=== PATIENT | female | born 1965 | race Caucasian/White ===

== ENCOUNTER 2023-02-22 18:42 | Emergency (ER) | payer OTHER, SELFPAY ==
[2023-02-22] VITALS (24 sets, daily range): BP systolic 112–133; BP diastolic 76; PULSE 80–96; RESP 11–28; TEMP 37.3; O2SAT 95–98; BMI 27.1
--- NOTE | 2023-02-22 18:32 | ED_ITS ---
HPI - General Adult General Chief complaint: Recheck/Abnormal Lab/Rx Stated complaint: LAB Time Seen by Provider: 02/22/23 18:45 History of Present Illness HPI narrative: Patient is a 57-year-old female who presents to the emergency department from a long-term acute care facility where she is a resident for the evaluation of abnormal outpatient labs. Patient had routine labs drawn yesterday and she was found to have a normal creatinine, she had repeat labs drawn today showing acute renal failure with elevated potassium. Patient has a history of traumatic brain injury, tracheostomy and G-tube. She is nonverbal although she is able to respond by nodding or shaking her head and she is cooperative and attentive to exam. No focal medical symptoms were reported by the correction or EMS on arrival. Related Data Allergies Allergy/AdvReac Type Severity Reaction Status Date / Time No Known Drug Allergies Allergy Verified 02/22/23 18:36 Review of Systems ROS Narrative Review of systems is limited by the patient's medical condition, no focal medical complaints reported by EMS or correction Exam Narrative Exam Narrative: Gen.: Awake, alert, in no distress Head: Deformity of the skull, status post surgery ENT: Moist mucous membranes Respiratory: No respiratory distress, lungs clear bilaterally Cardio: Regular rate and rhythm Gastrointestinal: Abdomen is soft, nondistended and nontender to palpation Extremities: Contracture noted of the left arm, able to move the right arm without difficulty Psych: Calm, cooperative Neuro: Nonverbal, limited mobility Skin: Warm, dry, intact Constitutional Vital Signs, click to edit/add: Last Vital Signs Temp 99.1 F 02/22/23 18:30 Pulse 89 02/22/23 23:18 Resp 16 02/22/23 23:18 BP 133/76 02/22/23 23:18 Pulse Ox 97 02/22/23 23:18 Course Vital Signs Vital signs: Vital Signs Temperature 99.1 F 02/22/23 18:30 Pulse Rate 93 H 02/22/23 18:30 Respiratory Rate 16 02/22/23 18:30 Blood Pressure 112/76 02/22/23 18:30 Pulse Oximetry 97 02/22/23 18:30 Temperature 99.1 F 02/22/23 18:30 Pulse Rate 89 02/22/23 23:18 Respiratory Rate 16 02/22/23 23:18 Blood Pressure 133/76 02/22/23 23:18 Pulse Oximetry 97 02/22/23 23:18 Medical Decision Making MDM Narrative Medical decision making narrative: IV was established with fluids started for the patient, Stevenson catheter was placed to rule out urinary obstruction and a CT of the abdomen and pelvis was performed for the same. CT does not show any evidence of acute abnormality, there is an age-indeterminate T12 burst fracture consistent with her previous injury. She has not had any falls or injuries to account for a new injury. Repeat labs show that the patient has a normal creatinine, normal potassium and she has a normal EKG in the ER. We suspect the abnormal specimen at her correction was due to the blood being hemolyzed. Patient has normal vital signs. She will be discharged back to the correction, I did give report to her [facility] caregiver who requested the Stevenson catheter be removed. Medical Records Medical records reviewed: Yes I reviewed the patient's medical records Lab Data Lab results reviewed: Yes I reviewed the patient's lab results Labs: Lab Results 02/22/23 02/22/23 Range/Units 18:48 19:06 WBC 7.2 (4.0-11.0) 10^3/uL RBC 3.66 L (4.20-5.40) 10^6/uL Hgb 11.7 L (12.0-16.0) g/dL Hct 36.1 (36.0-48.0) % MCV 98.6 (81.0-99.0) fL MCH 32.0 (26.7-34.0) pg MCHC 32.4 (29.9-35.2) g/dL RDW 22.3 H (11.0-15.0) % Plt Count 467 H (150-450) 10^3/uL MPV 10.4 (9.5-13.5) fL Neut % (Auto) 49.2 (43.0-75.0) % Lymph % (Auto) 35.7 (20.5-60.0) % Porter % (Auto) 11.2 (1.7-12.0) % Eos % (Auto) 2.2 (0.9-7.0) % Baso % (Auto) 1.1 (0.2-2.0) % Neut # (Auto) 3.5 (1.4-6.5) 10^3/uL Lymph # (Auto) 2.6 (1.2-3.8) 10^3/uL Porter # (Auto) 0.8 (0.3-0.8) 10^3/uL Eos # (Auto) 0.2 (0.0-0.7) 10^3/uL Baso # (Auto) 0.1 (0.0-0.1) 10^3/uL Abs Immat Gran (auto) 0.04 H (0.00-0.03) 10^3/uL Imm/Tot Granulo (auto) 0.6 H (0.0-0.5) % Sodium 137 (136-145) mmol/L Potassium 3.8 (3.5-5.1) mmol/L Chloride 102 (98-107) mmol/L Carbon Dioxide 28.3 (21.0-32.0) mmol/L Anion Gap 10.5 BUN 16.0 (7.0-18.0) mg/dL Creatinine 0.67 (0.55-1.02) mg/dL Est GFR ( Amer) >60 (>=60) Est GFR (Non-Af Amer) >60 (>=60) BUN/Creatinine Ratio 23.9 Glucose 107 H (74-106) mg/dL Calcium 9.2 (8.5-10.1) mg/dL Total Bilirubin 0.3 (0.2-1.0) mg/dL AST 14 L (15-37) U/L ALT 41 (14-59) U/L Alkaline Phosphatase 88 (46-116) U/L Total Protein 6.2 L (6.4-8.2) g/dL Albumin 2.9 L (3.4-5.0) g/dL Globulin 3.3 g/dL Albumin/Globulin Ratio 0.9 Urine Color Lt. green (YELLOW) Urine Clarity Clear (CLEAR) Urine pH 6.5 (5.0-9.0) Ur Specific Willis <=1.005 A (1.005-1.025) Urine Protein Negative (NEG/TRACE) mg/dL Urine Glucose (UA) Negative (NEGATIVE) mg/dL Urine Ketones Negative (NEGATIVE) mg/dL Urine Occult Blood Negative (NEGATIVE) Urine Nitrite Negative (NEGATIVE) Urine Bilirubin Negative (NEGATIVE) Urine Urobilinogen 0.2 (0.2-1.0) EU/dL Ur Leukocyte Esterase Small A (NEGATIVE) Urine RBC 0-2 (0-2) #/HPF Urine WBC 0-2 A (NONE SEEN) #/HPF Ur Squamous Epith Cells None seen (NONE/RARE) #/LPF Urine Crystals None seen (None Seen) #/HPF Urine Bacteria None seen (NONE SEEN) #/HPF Urine Casts None seen (NONE SEEN) #/LPF Urine Mucus None seen (NONE SEEN) Ur Culture Indicated? No Imaging Data CT scan - abdomen: Attestation: I have reviewed the pertinent imaging results. Radiologist's impression: Procedure: CT abdomen pelvis wo con EXAM: CT abdomen pelvis wo con; [id number] REASON FOR EXAM: Acute kidney failure TECHNIQUE: Helical CT images of the abdomen and pelvis were obtained without IV contrast. Multiplanar reformats were generated at the scanner. Dose reduction technique used: Automated exposure control and/or adjustment of the mA and/or kV according to patient size and/or use of iterative reconstruction technique. COMPARISON: None. FINDINGS: Note: Compared with a contrast-enhanced CT exam, noncontrast images are relatively insensitive for detection of solid organ and vascular abnormalities. Visualized Chest: No pleural effusion or any significant pulmonary findings. Abdomen: Liver: Within normal limits. Gallbladder: No calcified gallstones. No acute inflammatory changes. Bile Ducts: No significant biliary ductal dilatation. Pancreas: No ductal dilatation or inflammatory changes. Spleen: No splenomegaly. Adrenals: Benign right adrenal nodule measuring 18 x 14 mm (series 9 image 41). Kidneys: -Single nonobstructing 3 mm stone in the left kidney. -No hydronephrosis. Vascular: No aortic aneurysm. Lymph Nodes: No adenopathy. Abdominal Wall: Percutaneous gastrostomy tube terminates appropriately in the lumen of the stomach. Pelvis: Stevenson catheter decompresses the bladder. Bowel/Peritoneal Cavity/Mesentery: -Moderate sized rectal stool ball. -No acute inflammatory changes. -No free air or free fluid. Musculoskeletal: Age-indeterminate mild burst fracture of the superior endplate of T12 with approximately 6 mm retropulsion of fracture into the spinal canal (series 12 image 59). IMPRESSION: 1. No structural etiology for acute renal failure demonstrated. 2. Nonobstructing 3 mm stone in the left kidney. 3. Moderate sized rectal stool ball. 4. Age-indeterminate burst fracture of the superior endplate of T12 with 6 mm of retropulsion of the fracture into the spinal canal. Electronically authenticated by: AMY PACHECO Date: 02/22/2023 19:57 ECG Data Attestation: I personally reviewed and interpreted this ECG as follows: (Normal sinus rhythm at a rate of 91, no acute ST elevation or ectopy. EKG reviewed by attending physician) Discharge Plan Discharge Chief Complaint: Recheck/Abnormal Lab/Rx Clinical Impression: Encounter for laboratory test Patient Disposition: Home, Self-Care Time of Disposition Decision: 20:12 Condition: Good Mode of Transportation: EMS Stand Alone Forms: Portal Instructions Referrals: Alex Thomason MD [Primary Care Provider] - 1 week Discharge Date/Time: 02/22/23 23:30
--- NOTE | 2023-02-22 18:39 | ECG_ITS ---
[facility] Test Date: 2023-02-22 Pat Name: Naomie Bolden Department: Room: - Gender: Female [employer]: : 1965 Requested By: RAMA PRITCHETT Order Number: [id number] Reading MD: RAMA PRITCHETT Measurements Intervals [place] Rate: 91 P: -36 MD: 148 QRS: 69 QRSD: 92 T: 60 QT: 338 QTc: 387 Interpretive Statements 1220 Rapid atrial rhythm 8102 Low QRS voltage in chest leads 9140 abnormal rhythm ECG No previous ECG available for comparison Electronically Signed On 02-23-2023 6:46:09 EST by RAMA PRITCHETT
[2023-02-22 18:57] LABS: Basophils Absolute Auto 0.1 10^3/uL (0.0-0.1); Basophils Percent Auto 1.1 % (0.2-2.0); Eosinophils Absolute Auto 0.2 10^3/uL (0.0-0.7); Eosinophils Percent Auto 2.2 % (0.9-7.0); Hematocrit 36.1 % (36.0-48.0); Hemoglobin 11.7 g/dL (12.0-16.0); Immature Granulocytes Abs Auto 0.04 10^3/uL (0.00-0.03); Immature Granulocytes Pct Auto 0.6 % (0.0-0.5); Lymphocytes Absolute Auto 2.6 10^3/uL (1.2-3.8); Lymphocytes Percent Auto 35.7 % (20.5-60.0); Mean Corpuscular HGB Conc 32.4 g/dL (29.9-35.2); Mean Corpuscular Volume 98.6 fL (81.0-99.0); Mean Platelet Volume 10.4 fL (9.5-13.5); Monocytes Absolute Auto 0.8 10^3/uL (0.3-0.8); Monocytes Percent Auto 11.2 % (1.7-12.0); Neutrophils Absolute Auto 3.5 10^3/uL (1.4-6.5); Neutrophils Percent Auto 49.2 % (43.0-75.0); Platelet Count 467 10^3/uL (150-450); Red Blood Count 3.66 10^6/uL (4.20-5.40); Red Cell Distribution Width 22.3 % (11.0-15.0); White Blood Count 7.2 10^3/uL (4.0-11.0)
[2023-02-22] MEDS: 0.9 % SODIUM CHLORIDE 1,000 ML 1000 ML IV (19:03)
[2023-02-22 19:15] LABS: Alanine Aminotransferase 41 U/L (14-59); Albumin Globulin Ratio 0.9; Albumin Level 2.9 g/dL (3.4-5.0); Alkaline Phosphatase 88 U/L (46-116); Anion Gap 10.5; Aspartate Amino Transferase 14 U/L (15-37); BUN Creatinine Ratio 23.9; Bilirubin Total 0.3 mg/dL (0.2-1.0); Calcium 9.2 mg/dL (8.5-10.1); Carbon Dioxide 28.3 mmol/L (21.0-32.0); Chloride 102 mmol/L (98-107); Estimated GFR (African America >60 (>=60); Estimated GFR (Non-African Ame >60 (>=60); Globulin 3.3 g/dL; Glucose 107 mg/dL (74-106); Potassium 3.8 mmol/L (3.5-5.1); Sodium 137 mmol/L (136-145); Total Protein 6.2 g/dL (6.4-8.2)
[2023-02-22 19:17] LABS: Bilirubin Urine NEGATIVE (NEGATIVE); Blood Urine NEGATIVE (NEGATIVE); Clarity Urine CLEAR (CLEAR); Color Urine LT. GREEN (YELLOW); Glucose Urine UA NEGATIVE (NEGATIVE); Ketones Urine NEGATIVE (NEGATIVE); Leukocyte Esterase Urine SMALL (NEGATIVE); Nitrite Urine NEGATIVE (NEGATIVE); Protein Urine NEGATIVE (NEG/TRACE); Specific Gravity Urine <=1.005 (1.005-1.025); Urobilinogen Urine 0.2 EU/dL (0.2-1.0); pH Urine 6.5 (5.0-9.0)
[2023-02-22 19:26] LABS: Urine Microscopic Indicated YES
[2023-02-22 19:31] LABS: Bacteria Urine NONE SEEN #/HPF (NONE SEEN); Cast Seen? NONE SEEN #/LPF (NONE SEEN); Crystals Seen? None Seen #/HPF (None Seen); Mucus Urine NONE SEEN (NONE SEEN); RBC Urine 0-2 #/HPF (0-2); Squamous Epithelial Cell Urine NONE SEEN #/LPF (NONE/RARE); Urine Culture Indicated NO; WBC Urine 0-2 #/HPF (NONE SEEN)
== END 2023-02-22 23:30 | disposition home or self-care (01) ==
PROVIDERS: Physician Assistant; Emergency Provider Internal Medicine; PCP Family Medicine
DX: Z00.00 Encounter for general adult medical examination without abnormal findings (principal); Z87.820 Personal history of traumatic brain injury; Z93.0 Tracheostomy status; Z93.1 Gastrostomy status
CPT/HCPCS: 36415; 51702; 74176; 80053; 81001; 85025; 93005; 99285

== ENCOUNTER 2024-01-09 16:21 | Outpatient (REF) | payer OTHER, SELFPAY ==
--- OUTSIDE RECORDS SUMMARY | 2024-01-09 16:27 | XMS_ITS | CCD ---
Author Organization [facility] Care Team Providers Care Correctional Maintenance Technician Name Role Phone Nill, Gala R Unavailable Unavailable Nill, Gala R Unavailable Unavailable Nill, Gala R Unavailable Unavailable Alex Thomason~[phone] UNKNOWN Unavailable Unavailable ALEX THOMASON Referring Unavailable ALEX THOMASON Primary Care Unavailable Alex Thomason Primary Care Provider Alex Thomason Primary Care Provider Sesar Gutiérrez Attending Provider Chhaya Spivey Unavailable SHREYAS ., DR ONTIVEROS Attending Unavailable HOY ., DR ONTIVEROS Admitting Unavailable HOY ., DR ONTIVEROS Primary Care Unavailable HOY ., DR ONTIVEROS Consulting Unavailable HOY ., DR ONTIVEROS Admitting Unavailable HOY ., DR ONTIVEROS Primary Care Unavailable HOY ., DR ONTIVEROS Consulting Unavailable HOY ., DR ONTIVEROS Attending Unavailable HOY ., DR ONTIVEROS Attending Unavailable HOY ., DR ONTIVEROS Admitting Unavailable HOY ., DR ONTIVEROS Primary Care Unavailable HOY ., DR ONTIVEROS Consulting Unavailable [place], DR FRANCES Del Valle Consulting Unavailable FRANCES NICHOLS Consulting Unavailable Alex Thomason MD Primary Care Provider ALEX THOMASON Referring Unavailable ALEX THOMASON M Primary Care Unavailable SEBAS GILL Referring Unavailable ALEX THOMASON M Primary Care Unavailable SEBAS GILL Admitting Unavailable SEBAS GILL Attending Unavailable ALEX THOMASON M Primary Care Unavailable ALEX THOMASON M Primary Care Unavailable LELO MENDEZ Attending Unavailable ALEX THOMASON M Referring Unavailable ALEX THOMASON M Primary Care Unavailable ALEX THOMASON M Referring Unavailable HOY, ALEX M Primary Care Unavailable GIGI SUAREZ Referring Unavailable HOY, ALEX M Primary Care Unavailable МАРИЯSEVERINO Quintana M Referring Unavailable HOY, ALEX M Primary Care Unavailable SEBAS GILL Referring Unavailable HOY, ALEX M Primary Care Unavailable OLELO RAYMUNDO Referring Unavailable HOY, ALEX M Primary Care Unavailable SEBAS GILL Referring Unavailable HOY, ALEX M Primary Care Unavailable HOY, ALEX M Referring Unavailable HOY, ALEX M Primary Care Unavailable HAJA URRUTIA Attending Unavailable HAJA URRUTIA Referring Unavailable HOY, ALEX M Primary Care Unavailable HAJA URRUTIA Attending Unavailable HAJA URRUTIA M Referring Unavailable HOY, ALEX M Primary Care Unavailable SEBAS GILL Attending Unavailable HOY, ALEX M Referring Unavailable HOY, ALEX M Primary Care Unavailable HOY, ALEX M Referring Unavailable HOY, ALEX M Primary Care Unavailable HOY, ALEX M Referring Unavailable HOY, ALEX M Primary Care Unavailable HAJA URRUTIA Attending Unavailable LELO MENDEZ Referring Unavailable HOY, ALEX M Primary Care Unavailable HOY, ALEX M Referring Unavailable HOY, ALEX M Primary Care Unavailable GIGI SUAREZ Attending Unavailable HAJA URRUTIA Attending Unavailable HOY, ALEX M Referring Unavailable HOY, ALEX M Primary Care Unavailable Unavailable Unavailable Unavailable Allergies Allergy Classification Reported Allergen(s) Allergy Type Date of Onset Reaction(s) Facility (1 source) No Known Medication Allergies; Translations: [No Known Medication Allergies] Propensity to adverse reactions (disorder) [facility] Medications Current Medications Medication Drug Class(es) Dates Sig (Normalized) Sig (Original) acetaminophen 325 mg oral tablet (2 sources) Start: 02-02-2023 take 2 tablets by mouth every six hours as needed acetaminophen (TYLENOL) 325 mg tablet 2 tablets (650 mg total) every 6 (six) hours as needed. 0 02/02/2023 Active albuterol 0.833 mg/ml / ipratropium bromide 0.167 mg/ml inhalation solution (2 sources) Anticholinergic, beta2-Adrenergic Agonist Start: 02-02-2023 ipratropium-albuter oL (DUONEB) 0.5 mg-3 mg(2.5 mg base)/3 mL nebulizer Inhale 3 mL. 0 02/02/2023 Active amLODIPine 5 mg oral tablet (2 sources) Dihydropyridine Calcium Channel Iliana Start: 01-11-2023 take 1 tablet by mouth in the morning amLODIPine (NORVASC) 5 mg tablet Take 1 tablet (5 mg total) by mouth in the morning. 30 tablet 3 01/11/2023 Active aspirin 81 mg chewable tablet (2 sources) Platelet Aggregation Inhibitor, Nonsteroidal Anti-inflammatory Drug Start: 01-12-2023 aspirin 81 mg chewable tablet Chew 1 tablet (81 mg total) and swallow in the morning. 30 tablet 3 01/12/2023 Active baclofen 10 mg oral tablet (2 sources) gamma-Aminobutyric Acid-ergic Agonist take 0.5 tablet by mouth in the morning, then take 0.5 tablet by mouth at bedtime baclofen (LIORESAL) 10 mg tablet Take 0.5 tablets (5 mg total) by mouth in the morning and 0.5 tablets (5 mg total) before bedtime. 0 Active bisacodyl 10 mg rectal suppository (2 sources) Stimulant Laxative Start: 02-02-2023 bisacodyL (DULCOLAX) 10 mg suppository Insert 1 suppository (10 mg total) into the rectum as needed. 0 02/02/2023 Active carvedilol 25 mg oral tablet (4 sources) alpha-Adrenergic Iliana, beta-Adrenergic Iliana Start: 01-11-2023 carvediloL (COREG) 25 mg tablet 1 tablet (25 mg total) in the morning and 1 tablet (25 mg total) before bedtime. 0 02/02/2023 Active diclofenac sodium 75 mg delayed release oral tablet (2 sources) Nonsteroidal Anti-inflammatory Drug Start: 06-06-2020 take 75 mg by mouth once daily Diclofenac Sodium Active 75 MG PO Daily June 06, 2020 9:50am docusate sodium 50 mg / sennosides, alf 8.6 mg oral tablet (2 sources) take 1 tablet by mouth in the morning sennosides-docusate sodium (SENNA WITH DOCUSATE SODIUM) 8.6-50 mg Take 1 tablet by mouth in the morning. 0 Active famotidine 20 mg oral tablet (2 sources) Histamine-2 Receptor Antagonist Start: 02-02-2023 famotidine (PEPCID) 20 mg tablet 1 tablet (20 mg total) in the morning and 1 tablet (20 mg total) before bedtime. 0 02/02/2023 Active 1 ml heparin sodium, porcine 5000 unt/ml prefilled syringe (2 sources) Unfractionated Heparin, Anti-coagulant take 8000 [IU] parenteral route every eight hours heparin sodium,porcine (heparin, porcine,) 5,000 unit/mL syringe Inject 8,000 Units as directed every 8 (eight) hours. 0 Active hydroxyurea (2 sources) Antimetabolite take 3 capsules by mouth once daily in the evening HYDROXYUREA ORAL Take 500 mg by mouth in the evening. 3 capsules daily via G tube. 0 Active hypromellose 5 mg/ml ophthalmic solution (2 sources) Start: 01-11-2023 take 1 drop(s) into the eye(s) every two hours as needed artificial tears,hypromellose, (ISOPTO TEARS) 0.5 % ophthalmic solution Administer 1 drop to both eyes every 2 (two) hours as needed (if heavily sedated or paralyzed). 15 mL 3 01/11/2023 Active ibuprofen 200 mg oral tablet (2 sources) Nonsteroidal Anti-inflammatory Drug take 1 tablet by mouth every six hours as needed for pain ibuprofen (ADVIL,MOTRIN) 200 mg tablet Take 1 tablet (200 mg total) by mouth every 6 (six) hours as needed for pain (pt took equivalent to 800mg of the over the counter). 0 Active insulin lispro 100 unt/ml injectable solution (2 sources) Insulin Analog Start: 02-02-2023 insulin lispro (HumaLOG) 100 unit/mL injection Inject 0-0.06 mL (0-6 Units total) under the skin 4 (four) times a day. 0 02/02/2023 Active magnesium hydroxide 80 mg/ml oral suspension (2 sources) Start: 02-02-2023 magnesium hydroxide (MILK OF MAGNESIA) 400 mg/5 mL suspension 30 mL as needed. 0 02/02/2023 Active ondansetron 4 mg disintegrating oral tablet (2 sources) Serotonin-3 Receptor Antagonist Start: 02-02-2023 take 1 tablet by mouth every six hours as needed ondansetron ODT (ZOFRAN ODT) 4 mg disintegrating tablet 1 tablet (4 mg total) every 6 (six) hours as needed. 0 02/02/2023 Active polyethylene glycol 3350 83828 mg powder for oral solution (2 sources) Osmotic Laxative polyethylene gl ycol (GLYCOLAX) 17 gram packet Take 17 g by mouth in the morning. 0 Active potassium phosphate 155 mg / sodium phosphate, dibasic 852 mg / sodium phosphate, monobasic 130 mg oral tablet (2 sources) Start: 02-02-2023 sod phos di, mono-K phos mono (K-PHOS NEUTRAL) 250 mg tablet 1 tablet in the morning and 1 tablet before bedtime. 0 02/02/2023 Active simvastatin 40 mg oral tablet (3 sources) HMG-CoA Reductase Inhibitor simvastatin (ZOCOR) 40 mg tablet Take by mouth nightly. 0 Active traZODone hydrochloride 50 mg oral tablet (2 sources) Serotonin Reuptake Inhibitor Start: 02-02-2023 take 1 tablet by mouth in the morning traZODone (DESYREL) 50 mg tablet Take 1 tablet (50 mg total) by mouth in the morning. 0 02/02/2023 Active venlafaxine 75 mg oral tablet (3 sources) Serotonin and Norepinephrine Reuptake Inhibitor Start: 06-05-2020 take 1 tablet by mouth every twenty-four hours Venlafaxine HCl 75 MG 1 tablet with food Orally Once a day for 30 day(s) May, Active take 2 tablets by mouth in the m orning venlafaxine (EFFEXOR) 75 mg tablet Take 2 tablets (150 mg total) by mouth in the morning. 0 Active Problems Active Problems Problem Classification Problem Date Documented Date Episodic/Chronic Acute cerebrovascular disease (4 sources) Cerebral infarction, unspecified; Translations: [Cerebrovascular accident] Onset: 07-07-2023 Chronic Aortic and peripheral arterial embolism or thrombosis (6 sources) Thrombosis of aorta; Translations: [Embolism and thrombosis of unspecified parts of aorta] Onset: 12-26-2022 12-26-2022 Chronic Late effects of cerebrovascular disease (2 sources) Spasticity as sequela of stroke; Translations: [Other sequelae of cerebral infarction] Onset: 04-21-2023 04-21-2023 Chronic Neoplasms of unspecified nature or uncertain behavior (1 source) Essential (hemorrhagic) thrombocythemia; Translations: [Essential (hemorrhagic) thrombocythemia] Onset: 11-02-2023 Chronic Nutritional deficiencies (1 source) Vitamin D deficiency, unspecified; Translations: [VITAMIN D DEFICIENCY UNSPECIFIED] Onset: 02-27-2022 Chronic Occlusion or stenosis of precerebral arteries (2 sources) Occlusion and stenosis of bilateral carotid arteries; Translations: [Occlusion and stenosis of bilateral carotid arteries] Onset: 11-14-2023 Chronic Osteoporosis (5 sources) Age-related osteoporosis without current pathological fracture; Translations: [AGE-REL OSTEOPOR W/O CURR PATH FX] Onset: 03-26-2022 Chronic Other connective tissue disease (1 source) Spasm; Translations: [Other muscle spasm] Onset: 04-21-2023 04-21-2023 Episodic Other non-traumatic joint disorders (1 source) Pain in right knee; Translations: [Right knee pain, unspecified chronicity] Peripheral and visceral atherosclerosis (2 sources) Peripheral vascular disease, unspecified; Translations: [Peripheral vascular disease, unspecified] Onset: 11-14-2023 Chronic Residual codes; unclassified (1 source) Genetic susceptibility to other disease; Translations: [Genetic susceptibility to other disease] Onset: 11-02-2023 Episodic Residual codes; unclassified (1 source) Other specified postprocedural states; Translations: [Other specified postprocedural states] Onset: 11-22-2023 Episodic Unclassified (1 source) Cerebrovascular accident (CVA), unspecified mechanism (CMS-HCC) [I63.9] Onset: 10-10-2023 Unclassified (1 source) Carotid Artery Disease Onset: 12-12-2023 Unclassified (1 source) Post-op Onset: 11-22-2023 Past or Other Problems Problem Classification Problem Date Documented Da te Episodic/Chronic Immunizations and screening for infectious disease (1 source) Contact with and (suspected) exposure to other viral communicable diseases; Translations: [Contact with and (suspected) exposure to other viral communicable diseases Z20.828] Onset: 12-29-2020 Resolved: 12-29-2020 Episodic Malaise and fatigue (1 source) Other fatigue; Translations: [OTHER FATIGUE] Onset: 02-27-2022 Episodic Other acquired deformities (3 sources) Other acquired deformity of head; Translations: [Other acquired deformity of head] Onset: 07-07-2023 Episodic Other aftercare (1 source) Other meterman (current) drug therapy; Translations: [OTH WOOD BLOCK ARTIST CURRENT DRUG THERAPY] Onset: 02-27-2022 Episodic Other bone disease and musculoskeletal deformities (1 source) Other specified disorders of bone density and structure, other site; Translations: [OTH D/O BONE DEN STRUCT OTH SITE] Onset: 03-26-2022 Episodic Other connective tissue disease (1 source) Other muscle spasm; Translations: [Other muscle spasm] Onset: 04-21-2023 Episodic Other connective tissue disease (1 source) Cramp and spasm; Translations: [Cramp and spasm] Onset: 04-21-2023 Episodic Other screening for suspected conditions (not mental disorders or infectious disease) (2 sources) Encounter for screening mammogram for malignant neoplasm of breast; Translations: [Encounter for screening for malignant neoplasm of colon] Onset: 02-27-2022 Episodic Residual codes; unclassified (1 source) Family history of other malignant neoplasms of lymphoid, hematopoietic and related tissues; Translations: [FAM HX OTH MAL GUMARO LYMPH HEMATPOETC] Onset: 03-26-2022 Episodic Results Test Name Value Interpretation Reference Range Facility CT CTA ABD AND PELVISon 11-26 [address] ABD [address] PELVIS CT CTA ABD AND PELVIS CT CTA ABD AND PELVIS HISTORY: Abdominal aorta thrombosis, aortic atherosclerosis COMPARISON: CTA abdominal aorta with runoff 12/26/2022 TECHNIQUE: Multidetector CT Angiogram performed with 100 mL of Omnipaque 350 IV contrast. Images obtained through the Abdomen/Pelvis including 3 -D Maximum intensity projection reconstructions constructed under concurrent physician supervision on a independent workstation. 3 D images obtained to improve visualization of vascular detail. Automatic exposure control (AEC) was utilized. 3D reformatted images confirm the source data findings. All CT scans at this facility use dose modulation, iterative reconstruction, and/or weight based dosing when appropriate to reduce radiation dose to as low as reasonably achievable. FINDINGS: LOWER CHEST: Bibasilar atelectasis. Lung bases are otherwise clear. LIVER AND BILIARY: Noncirrhotic liver morphology. No suspicious hepatic mass or lesion. Contracted appearance of the gallbladder which has some degree of wall thickening near the mid/distal portion. PANCREAS: Unremarkable SPLEEN: Tigroid type and enhancement pattern with focal areas of parenchymal irregularities may reflect sequelae of remote infarction ADRENALS: Redemonstrated indeterminate right adrenal gland nodule measuring 1.4 cm. The left adrenal gland is unremarkable. KIDNEYS, URETERS, AND BLADDER: Symmetric renal parenchymal enhancement. Indeterminate 2.4 cm exophytic lesion in the upper pole left kidney. No collecting system dilatation. Nonobstructing bilateral nephrolithiasis, largest stone in the left kidney measures 0.5 cm. Ureters and bladder are unremarkable. GI TRACT AND PERITONEUM: The appendix and terminal ileum is unremarkable appearing. There is no evidence of bowel obstruction. No free intraperitoneal gas. 7.7 cm stool ball in the rectal vault. Subtle presacral stranding abutting the rectal vault (series 6, image 147). LYMPH NODES: No enlarged lymph nodes by size criteria. REPRODUCTIVE ORGANS: Sequela of prior hysterectomy.. MUSCULOSKELETAL: Either 6 lumbar vertebral bodies or 11 thoracic vertebral bodies with chronic superior endplate irregularity of the first nonrib-bearing lumbar vertebral body. Vasculature: The abdominal aorta is not aneurysmal. Moderate aortic atherosclerotic disease. Normal patency of the celiac trunk, SMA, single bilateral renal arteries, and PETER. The bilateral iliac vasculature and proximal femoral vasculature is unremarkable appearing. Interval absence of eccentric thrombus previously seen within the distal thoracic aorta near the diaphragmatic hiatus. IMPRESSION: * No acute vascular abnormality. Prior thrombus seen within the distal thoracic aorta is no longer visualized. * Indeterminate 2.4 cm exophytic lesion in the upper pole the left kidney. Recommend follow-up MR abdomen or CT abdomen pelvis with renal mass protocol. * Benign 1.4 cm right adrenal nodule. Consider biochemical assays to determine functional status and exclude pheochromocytoma. Recommend no further imaging evaluation. * A 7.7 cm stool ball is seen in the rectal vault with subtle presacral stranding. Correlate for symptoms which may suggest early stercoral colitis. * Decompressed gallbladder with apparent compatible thickening could relate to decompressed status. If concern for chronic cholecystitis or HIDA scan consider ultrasound. Approved by Resident Juan Asher DO on 12/06/2023 8:51 AM Gala Mosher MD have personally reviewed the image(s) and agree with and/or edited the report Finalized by Gala Cheung MD on 12/06/2023 9:[address] [facility] CT CTA CHESTon 12-06-[address] CTA CHEST CLINICAL INFORMATION: Aortic aneurysm. COMPARISON: 12/25/2022 TECHNIQUE: Nonionic contrast injected intravenously without reported complication. Thin section axial images of the thorax obtained with multiplanar reformatted 3-D MIP images of the thorax generated under concurrent physician supervision and reviewed. Automatic exposure control (AEC) was utilized. All CT scans at this facility use dose modulation, iterative reconstruction, and/or weight based dosing when appropriate to reduce radiation dose to as low as reasonably achievable. FINDINGS: CARDIOVASCULAR: Aorta: Mild atherosclerotic disease of the thoracic aorta. Large irregular thrombus visualized on prior imaging is no longer visualized. Mid ascending aorta: 4.0 x 4.1 cm. Previously measuring 3.9 cm Proximal arch (proximal to brachiocephalic artery): 3.7 x 4.0 cm. Mid arch: 2.8 x 3.1 cm. Distal arch (distal to left subclavian artery): 2.5 x 2.8 cm. Mid-descendin.3 x 2.4 cm. Arch vessels: Three-vessel aortic arch Pulmonary arteries: Normal in caliber. No visualized pulmonary arterial filling defect. Coronary arteries: No significant coronary artery calcifications. HEART: No cardiomegaly or significant pericardial effusion. NONVASCULAR: LUNG/PLEURA: Mild emphysematous changes. No focal consolidation, pleural effusion, or pneumothorax. Mild dependent atelectasis bilaterally. The central airways are patent without filling defect. MEDIASTINUM and LYMPH NODES: No mediastinal or hilar lymphadenopathy. UPPER ABDOMEN: Please refer to concurrently performed but separately dictated report. MUSCULOSKELETAL AND LOWER NECK Multinodular thyroid. Largest nodule measures up to 15 mm in the left lobe and is indeterminant. Multilevel degenerative changes spine. No acute osseous abnormalities. IMPRESSION: * Aneurysmal dilatation of the ascending aorta measuring up to 4.1 cm, previously measuring 3.9 cm. * Multinodular thyroid with largest nodule measuring up to 15 mm in the left lobe. This nodule is indeterminant, consider dedicated thyroid ultrasound. Approved by Resident Frances Suarez MD on 12/06/2023 7:54 AM Art Mosher have personally reviewed the image(s) and agree with and/or edited the report Finalized by Art Gale on 12/06/2023 2:[address] [facility] BASIC METABOLIC PANLon 10-11 Anion gap [Moles/Vol] 7 mmol/L Normal 5-15 [facility] Comment on above: Performed By: #### C BCA, BMP #### [facility] ([id number]) [address], [address] [place] [address] Calcium [Mass/Vol] 8.9 mg/dL Normal 8.5-10.5 [facility] Comment on above: Performed By: #### C BCA, BMP #### [facility] ([id number]) [address], [address] [place] [address] Chloride [Moles/Vol] 105 mmol/L Normal 98-109 [facility] Comment on above: Performed By: #### C MINH, BMP #### [facility] ([id number]) [address], [address] [place] [address] CO2 [Moles/Vol] 27 mmol/L Normal 22-32 [facility] Comment on above: Performed By: #### C BCA, BMP #### [facility] ([id number]) [address], [address] [place] [address] Creatinine [Mass/Vol] 0.50 mg/dL Normal 0.40-1.00 [facility] Comment on above: Result Comment: METH OD TRACEABLE TO IDMS STANDARD Performed By: #### C MINH, BMP #### [facility] ([id number]) [address], [address] [place] [address] eGFR (CKD-EPI) NON-RACE DEPENDENT >90 Normal >59 [facility] Comment on above: Result Comment: Reported eGFR is based on the CKD-EPI 2020 equation that does not use a race coefficient. Performed By: #### C BCA, BMP #### [facility] ([id number]) [address], [address] [place] [address] Glucose [Mass/Vol] 99 mg/dL Normal 65-99 [facility] Comment on above: Performed By: #### C BCA, BMP #### [facility] ([id number]) [address], [address] [place] [address] Potassium [Moles/Vol] 3.6 mmol/L Normal 3.5-5.0 [facility] Comment on above: Performed By: #### C BCA, BMP #### [facility] ([id number]) [address], [address] [place] [address] Sodium [Moles/Vol] 139 mmol/L Normal 134-146 [facility] Comment on above: Performed By: #### C BCA, BMP #### [facility] ([id number]) [address], [address] [place] [address] Urea nitrogen [Mass/Vol] 15 mg/dL Normal 5-23 [facility] Comment on above: Performed By: #### C BCA, BMP #### [facility] ([id number]) [address], [address] [place] [address] CBC AND AUTO DIFFon 10-12-19 Erythrocyte distribution width (RBC) [Ratio] 14.3 % Normal 11.5-15.0 [facility] Comment on above: Performed By: #### C BCA, BMP #### [facility] ([id number]) [address], [address] [place] [address] Hematocrit (Bld) [Volume fraction] 27.9 % Low 35-47 [facility] Comment on above: Performed By: #### C BCA, BMP #### [facility] ([id number]) [address], [address] [place] [address] Hemoglobin (Bld) [Mass/Vol] 9.5 g/dL Low 11.7-15.5 [facility] Comment on above: Performed By: #### C BCA, BMP #### [facility] ([id number]) [address], [facility] [address] [place] [address] Lymphocytes (Bld) [#/Vol] 2.9 10*3/uL Normal 1.0-3.5 [facility] Comment on above: Performed By: #### C BCA, BMP #### [facility] ([id number]) [address], [address] [place] [address] Lymphocytes/100 WBC (Bld) 42.0 % Normal [facility] Comment on above: Performed By: #### C MINH, BMP #### [facility] ([id number]) [address], [address] [place] [address] MCH (RBC) [Entitic mass] 40.3 pg High 27-34 [facility] Comment on above: Performed By: #### C MINH, BMP #### [facility] ([id number]) [address], [address] [place] [address] MCHC (RBC) [Mass/Vol] 34.1 g/dL Normal 32-36 [facility] Comment on above: Performed By: #### C MINH, BMP #### [facility] ([id number]) [address], [address] [place] [address] MCV (RBC) [Entitic vol] 118 fL High 80-100 [facility] Comment on above: Performed By: #### C MINH, BMP #### [facility] ([id number]) [address], [address] [place] [address] Monocytes (Bld) [#/Vol] 0.3 10*3/uL Normal 0-0.9 [facility] Comment on above: Performed By: #### C MINH, BMP #### [facility] ([id number]) [address], [address] [place] [address] Monocytes/100 WBC (Bld) 4.0 % Normal [facility] Comment on above: Performed By: #### C BCA, BMP #### [facility] ([id number]) [address], [address] [place] [address] Neutrophils (Bld) [#/Vol] 3.8 10*3/uL Normal 1.5-6.6 [facility] Comment on above: Performed By: #### C MINH, BMP #### [facility] ([id number]) [address], [address] [place] [address] OVALOCYTE 1+ Abnormal NONE [facility] Comment on above: Performed By: #### C MINH, BMP #### [facility] ([id number]) [address], [address] [place] [address] Platelet mean volume (Bld) [Entitic vol] 8.4 fL Normal 7-12 [facility] Comment on above: Performed By: #### C MINH, BMP #### [facility] ([id number]) [address] [place] [address] Platelets (Bld) [#/Vol] 200 10*3/uL Normal 150-450 [facility] Comment on above: Performed By: #### C MINH, BMP #### [facility] ([id number]) [address], [address] [place] [address] POLYCHROMASIA 1+ Abnormal NONE [facility] Comment on above: Performed By: #### C MINH, BMP #### [facility] ([id number]) [address] [place] [address] RBC COUNT 2.36 X10E12/L Low 3.80-5.20 [facility] Comment on above: Performed By: #### C MINH, BMP #### [facility] ([id number]) [address], [address] [place] [address] SEG NEUTROPHIL 54.0 % Normal [facility] Comment on above: Performed By: #### C MINH, BMP #### [facility] ([id number]) [address], [address] [place] [address] WBC (Bld) [#/Vol] 7.0 10*3/uL Normal 4.0-11.0 [facility] Comment on above: Performed By: #### C MINH, BMP #### [facility] ([id number]) [address], [address] [place] [address] BASIC METABOLIC PANLon 10-10 Anion gap [Moles/Vol] 9 mmol/L Normal 5-15 [facility] Comment on above: Performed By: #### C BC, BMP #### [facility] ([id number]) [address], [address] [place] [address] Calcium [Mass/Vol] 9.0 mg/dL Normal 8.5-10.5 [facility] Comment on above: Performed By: #### C BC, BMP #### [facility] ([id number]) [address], [address] [place] [address] Chloride [Moles/Vol] 105 mmol/L Normal 98-109 [facility] Comment on above: Performed By: #### C BC, BMP #### [facility] ([id number]) [address], [address] [place] [address] CO2 [Moles/Vol] 25 mmol/L Normal 22-32 [facility] Comment on above: Performed By: #### C BC, BMP #### [facility] ([id number]) [address], [address] [place] [address] Creatinine [Mass/Vol] 0.45 mg/dL Normal 0.40-1.00 [facility] Comment on above: Result Comment: METH OD TRACEABLE TO IDMS STANDARD Performed By: #### C BC, BMP #### [facility] ([id number]) [address] [place] [address] eGFR (CKD-EPI) NON-RACE DEPENDENT >90 Normal >59 [facility] Comment on above: Result Comment: Reported eGFR is based on the CKD-EPI 2020 equation that does not use a race coefficient. Performed By: #### C BC, BMP #### [facility] ([id number]) [address] [place] [address] Glucose [Mass/Vol] 127 mg/dL High 65-99 [facility] Comment on above: Performed By: #### C FLAKITO, BMP #### [facility] ([id number]) [address] [place] [address] Potassium [Moles/Vol] 3.6 mmol/L Normal 3.5-5.0 [facility] Comment on above: Performed By: #### C FLAKITO, BMP #### [facility] ([id number]) [address] [place] [address] Sodium [Moles/Vol] 139 mmol/L Normal 134-146 [facility] Comment on above: Performed By: #### Amanda FRAGA, BMP #### [facility] ([id number]) [address] [place] [address] Urea nitrogen [Mass/Vol] 15 mg/dL Normal 5-23 [facility] Comment on above: Performed By: #### Amanda FRAGA, BMP #### [facility] ([id number]) [address] [place] [address] COMPLETE BLOOD COUNTon 10-10 Erythrocyte distribution width (RBC) [Ratio] 14.1 % Normal 11.5-15.0 [facility] Comment on above: Performed By: #### Amanda FRAGA, BMP #### [facility] ([id number]) [address] [place] [address] Hematocrit (Bld) [Volume fraction] 30.6 % Low 35-47 [facility] Comment on above: Performed By: #### C FLAKITO, BMP #### [facility] ([id number]) [address] [place] [address] Hemoglobin (Bld) [Mass/Vol] 10.6 g/dL Low 11.7-15.5 [facility] Comment on above: Performed By: #### C FLAKITO, BMP #### [facility] ([id number]) [address], [address] [place] [address] MCH (RBC) [Entitic mass] 40.5 pg High 27-34 [facility] Comment on above: Performed By: #### Amanda FRAGA, BMP #### [facility] ([id number]) [address], [address] [place] [address] MCHC (RBC) [Mass/Vol] 34.6 g/dL Normal 32-36 [facility] Comment on above: Performed By: #### C FLAKITO, BMP #### [facility] ([id number]) [address], [address] [place] [address] MCV (RBC) [Entitic vol] 117 fL High 80-100 [facility] Comment on above: Performed By: #### Amanda FRAGA, BMP #### [facility] ([id number]) [address], [address] [place] [address] Platelet mean volume (Bld) [Entitic vol] 8.1 fL Normal 7-12 [facility] Comment on above: Performed By: #### Amanda FRAGA, BMP #### [facility] ([id number]) [address], [address] [place] [address] Platelets (Bld) [#/Vol] 220 10*3/uL Normal 150-450 [facility] Comment on above: Performed By: #### Amanda FRAGA, BMP #### [facility] ([id number]) [address] [place] [address] RBC COUNT 2.62 X10E12/L Low 3.80-5.20 [facility] Comment on above: Performed By: #### Amanda FRAGA, BMP #### [facility] ([id number]) [address] [place] [address] WBC (Bld) [#/Vol] 5.3 10*3/uL Normal 4.0-11.0 [facility] Comment on above: Performed By: #### C BC, BMP #### [facility] ([id number]) [address], [address] [place] [address] CT BRAIN WO CONTon CT BRAIN WO CONT CT BRAIN WO CONT CT HEAD WITHOUT CONTRAST HISTORY: Postop craniotomy COMPARISON: 06/10/2023 TECHNIQUE: Routine noncontrast CT head. All CT scans at this facility use dose modulation, iterative reconstruction, and/or weight based dosing when appropriate to reduce radiation dose to as low as reasonably achievable. FINDINGS: Status post cranioplasty. Small amount of extra-axial and likely subcortical intraparenchymal hemorrhage in the right frontal region. Areas of low-attenuation in the right frontotemporal region remain, as does an area of encephalomalacia extending to the right lateral ventricle. No evidence of ventricular outflow obstruction. No midline shift. Visualized paranasal sinuses and temporal bone structures are clear. IMPRESSION: * Status post right-sided cranioplasty. * Small amount of right-sided extra-axial and likely subcortical intraparenchymal hemorrhage in the right frontal region. * Redemonstration of areas of low-attenuation within the right cerebral hemisphere involving the basal ganglia communicating with the right lateral ventricle, related to remote process. * No midline shift or evidence of ventricular outflow obstruction. Finalized by Dick Jeffers MD on 10/11/2023 2:29 AM Normal [facility] Glucose Glucometer (BldC) [M ass/Vol]on 10-10-2023 Glucose [Mass/Vol] 133 mg/dL High 65-99 [facility] BASIC METABOLIC PANLon 10-04 Anion gap [Moles/Vol] 8 mmol/L Normal 5-[address] [facility] Comment on above: Performed By: #### U A #### [facility] ([id number]) [address] [place] [address], [place] [address] Calcium [Mass/Vol] 9.8 mg/dL Normal 8.5-10.5 [facility] Comment on above: Performed By: #### U A #### [facility] ([id number]) [address] [place] [address] Chloride [Moles/Vol] 104 mmol/L Normal 98-[address] [facility] Comment on above: Performed By: #### U A #### [facility] ([id number]) [address] [place] [address] CO2 [Moles/Vol] 28 mmol/L Normal 22-[address] [facility] Comment on above: Performed By: #### U A #### [facility] ([id number]) [address] [place] [address] Creatinine [Mass/Vol] 0.63 mg/dL Normal 0.40-1.[address] [facility] Comment on above: Result Comment: METH OD TRACEABLE TO IDMS STANDARD Performed By: #### U A #### [facility] ([id number]) [address] [place] [address] [place] [address] eGFR (CKD-EPI) NON-RACE DEPENDENT >90 Normal >[address] [facility] Comment on above: Result Comment: Reported eGFR is based on the CKD-EPI 2020 equation that does not use a race coefficient. Performed By: #### U A #### [facility] ([id number]) [address] [place] [address] Glucose [Mass/Vol] 92 mg/dL Normal 65-99 [facility] Comment on above: Performed By: #### U A #### [facility] ([id number]) [address] [place] [address] Potassium [Moles/Vol] 4.7 mmol/L Normal 3.5-5.[address] [facility] Comment on above: Performed By: #### U A #### [facility] ([id number]) [address] [place] [address] Sodium [Moles/Vol] 140 mmol/L Normal 134-146 [facility] Comment on above: Performed By: #### U A #### [facility] ([id number]) [address] [place] [address] Urea nitrogen [Mass/Vol] 18 mg/dL Normal 5-[address] [facility] Comment on above: Performed By: #### U A #### [facility] ([id number]) [address] [place] [address] BLOOD CULTUREon 10-05-2023 Bacteria identified Aer cx Nom (Bld) SPECIMEN NOTES SUBOPTIMAL VOLUME OF BLOOD COLLECTED, RESULTS MAY BE AFFECTED. CULTURE RESULTS NO GROWTH [address] [facility] Comment on above: Performed By: #### U A #### [facility] ([id number]) [address] [place] [address] Bacteria identified Aer cx Nom (Bld) SPECIMEN NOTES RIGHT ANTECUBITAL CULTURE RESULTS NO GROWTH [address] [facility] Comment on above: Performed By: #### U A #### [facility] ([id number]) [address] [place] [address] CBC AND AUTO DIFFon 10-05-19 24 Erythrocyte distribution width (RBC) [Ratio] 14.6 % Normal 11.5-15.[address] [facility] Comment on above: Performed By: #### P INR, 94791-3 #### [facility] ([id number]) [address] [place] [address] #### CBCA, 33556-8, BMP, 1987- #### [facility] ([id number]) [address], [address] [place] [address] Hematocrit (Bld) [Volume fraction] 36.6 % Normal 35-[address] [facility] Comment on above: Performed By: #### P INR, 91613-0 #### [facility] ([id number]) [address] [place] [address] #### CBCA, 27825-0, [facility], 1987-07 #### [facility] ([id number]) [address], [address] [place] [address] Hemoglobin (Bld) [Mass/Vol] 12.3 g/dL Normal 11.7-15.[address] [facility] Comment on above: Performed By: #### P INR, 79688-0 #### [facility] ([id number]) [address] [place] [address] #### CBCA, 02820-5, [facility], 1987-07 #### [facility] ([id number]) [address] [place] [address] Lymphocytes (Bld) [#/Vol] 1.7 10*3/uL Normal 1.0-3.[address] [facility] Comment on above: Performed By: #### P INR, 25610-7 #### [facility] ([id number]) [address] [place] [address] #### CBCLilian, 48218-0, [facility], 1987-07 #### [facility] ([id number]) [address], [address] [place] [address] Lymphocytes/100 WBC (Bld) 59.0 % Normal [facility] Comment on above: Performed By: #### P INR, 60566-0 #### [facility] ([id number]) [address] [place] [address] #### CBCA, 34715-2, BMP, 1987-07 #### [facility] ([id number]) [address], [address] [place] [address] MCH (RBC) [Entitic mass] 39.7 pg High 27-[address] [facility] Comment on above: Performed By: #### P INR, 88943-0 #### [facility] ([id number]) [address] [place] [address] #### CBCA, 89456-4, BMP, 1987-07 #### [facility] ([id number]) [address], [address] [place] [address] MCHC (RBC) [Mass/Vol] 33.5 g/dL Normal 32-[address] [facility] Comment on above: Performed By: #### P INR, 32207-7 #### [facility] ([id number]) [address] [place] [address] #### CBCA, 24908-9, BMP, 1987-07 #### [facility] ([id number]) [address] [place] [address] MCV (RBC) [Entitic vol] 119 fL High 80-[address] [facility] Comment on above: Performed By: #### P INR, 19464-1 #### [facility] ([id number]) [address] [place] [address] #### CBCA, 07520-5, BMP, 1987-07 #### [facility] ([id number]) [address] [place] [address] Monocytes (Bld) [#/Vol] 0.2 10*3/uL Normal 0-0.[address] [facility] Comment on above: Performed By: #### P INR, 07235-6 #### [facility] ([id number]) [address] [place] [address] #### CBCA, 61053-7, BMP, 1987-07 #### [facility] ([id number]) [address] [place] [address] Monocytes/100 WBC (Bld) 7.0 % Normal [facility] Comment on above: Performed By: #### P INR, 54548-6 #### [facility] ([id number]) [address] [place] [address] #### CBCA, 21077-0, BMP, 1987-07 #### [facility] ([id number]) [address], [address] [place] [address] Neutrophils (Bld) [#/Vol] 1.0 10*3/uL Low 1.5-6.[address] [facility] Comment on above: Performed By: #### P INR, 08792-1 #### [facility] ([id number]) [address] [place] [address] #### CBCA, 76706-3, BMP, 1987-07 #### [facility] ([id number]) [address] [place] [address] Platelet mean volume (Bld) [Entitic vol] 8.7 fL Normal 7-[address] [facility] Comment on above: Performed By: #### P INR, 52397-9 #### [facility] ([id number]) [address] [place] [address] #### CBCA, 52289-7, BMP, 1987-07 #### [facility] ([id number]) [address] [place] [address] Platelets (Bld) [#/Vol] 290 10*3/uL Normal 150-[address] [facility] Comment on above: Performed By: #### P INR, 83795-1 #### [facility] ([id number]) [address] [place] [address]596 #### CBCA, 66517-0, BMP, 1987-07 #### [facility] ([id number]) [address] [place] [address] RBC COUNT 3.08 X10E12/L Low 3.80-5.[address] [facility] Comment on above: Performed By: #### P INR, 98429-0 #### [facility] ([id number]) [address] [place] [address] #### CBCA, 85693-4, BMP, 1987-07 #### [facility] ([id number]) [address] [place] [address] RBC morphology finding Nom (Bld) NORMAL Normal [facility] Comment on above: Performed By: #### P INR, 66105-1 #### [facility] ([id number]) [address] [place] [address]71 #### CBCA, 08353-2, BMP, 1987-07 #### [facility] ([id number]) [address] [place] [address] SEG NEUTROPHIL 34.0 % Normal [facility] Comment on above: Performed By: #### P INR, 86775-4 #### [facility] ([id number]) [address] [place] [address]94 #### CBCA, 56084-4, BMP, 1987-07 #### [facility] ([id number]) [address] [place] [address] WBC (Bld) [#/Vol] 2.9 10*3/uL Low 4.0-11.0 [facility] Comment on above: Performed By: #### P INR, 97616-6 #### [facility] ([id number]) [address] [place] [address] #### CBCA, 09131-9, BMP, 1987-07 #### [facility] ([id number]) [address] [place] [address] CRP [Mass/Vol]on 10-05-2023 C REACTIVE PROTEIN 0.1 mg/dL Normal 0.000-0.[address] [facility] Comment on above: Performed By: #### U A #### [facility] ([id number]) [address] [place] [address] ESR Photometric method (Bld) [Velocity]on 10-05-2023 ESR, ERYTHROCYTE SEDIMENTATION RATE 1 mm/h Normal 0-[address] [facility] Comment on above: Performed By: #### U A #### [facility] ([id number]) [address] [place] [address] PROTIME AND INRon 10-05-2023 INR Coag (PPP) [Relative time] 1.0 {INR} Normal 0.8-1.[address] [facility] Comment on above: Performed By: #### P INR, 83382-0 #### [facility] ([id number]) [address] [place] [address] #### CBCA, 69655-2, BMP, 1987-07 #### [facility] ([id number]) [address] [place] [address] PT Coag (PPP) [Time] 12.1 s Normal 9.8-13.[address] [facility] Comment on above: Result Comment: NEW REFERENCE RANGE Performed By: #### P INR, 97219-9 #### [facility] ([id number]) [address] [place] [address]53 #### CBCA, 12363-5, BMP, 1987-07 #### [facility] ([id number]) [address] [place] [address] aPTT Coag (PPP) [Time]on aPTT Coag (Bld) [Time] 25 s Low 26-[address] [facility] Comment on above: Result Comment: NEW REFERENCE RANGE Performed By: #### P INR, 02202-7 #### [facility] ([id number]) [address] [place] [address]17 #### CBCA, 34652-5, BMP, 1987- #### [facility] ([id number]) [address] [place] [address] URINALYSISon 10-02-2023 Bilirubin Ql (U) Negative Normal NEG [facility] Comment on above: Performed By: #### U A #### [facility] ([id number]) [address] [place] [address] BLOOD/HGB Negative Normal NEG [facility] Comment on above: Performed By: #### U A #### [facility] ([id number]) [address] [place] [address]28 Color (U) YELLOW Normal YELLOW [facility] Comment on above: Performed By: #### U A #### [facility] ([id number]) [address] [place] [address] Glucose Ql (U) Negative Normal NEG [facility] Comment on above: Performed By: #### U A #### [facility] ([id number]) [address] [place] [address] Ketones Ql (U) Negative Normal NEG [facility] Comment on above: Performed By: #### U A #### [facility] ([id number]) [address] [place] [address] Leukocyte esterase Test strip Ql (U) Trace Abnormal NEG [facility] Comment on above: Performed By: #### U A #### [facility] ([id number]) [address] [place] [address] Nitrite Ql (U) Positive Abnormal NEG [facility] Comment on above: Performed By: #### U A #### [facility] ([id number]) [address] [place] [address]186 pH (U) 7.5 [pH] Normal 5.0-8.[address] [facility] Comment on above: Performed By: #### U A #### [facility] ([id number]) [address] [place] [address] Protein Ql (U) Negative Normal NEG [facility] Comment on above: Performed By: #### U A #### [facility] ([id number]) [address] [place] [address] R.B.CELLS 0 /hpf Normal 0-[address] [facility] Comment on above: Performed By: #### U A #### [facility] ([id number]) [address] [place] [address]99 Specific gravity (U) [Rel density] 1.020 Normal 1.003-1.[address] [facility] Comment on above: Performed By: #### U A #### [facility] ([id number]) [address] [place] [address] SQUAMOUS EPITHELIUM 12 /hpf High 0-[address] [facility] Comment on above: Performed By: #### U A #### [facility] ([id number]) [address] [place] [address] [place] [address] TURBIDITY CLOUDY Abnormal CLEAR [facility] Comment on above: Performed By: #### U A #### [facility] ([id number]) [address] [place] [address] Urobilinogen Qn (U) 1.0 {Tra'U}/dL Normal <1.[address] [facility] Comment on above: Performed By: #### U A #### [facility] ([id number]) [address] [place] [address] [place] [address] W.B.CELLS 5 /hpf Normal 0-[address] [facility] Comment on above: Performed By: #### U A #### [facility] ([id number]) [address] [place] [address] BASIC METABOLIC PANLon 09-29 Anion gap [Moles/Vol] 8 mmol/L Normal 5-[address] [facility] Comment on above: Performed By: #### C BCA, BMP #### [facility] ([id number]) [address] [place] [address] Calcium [Mass/Vol] 10.1 mg/dL Normal 8.5-10.5 [facility] Comment on above: Performed By: #### C BCA, BMP #### [facility] ([id number]) [address] [place] [address] Chloride [Moles/Vol] 104 mmol/L Normal 98-[address] [facility] Comment on above: Performed By: #### C BCA, BMP #### [facility] ([id number]) [address], [address] [place] [address] CO2 [Moles/Vol] 28 mmol/L Normal 22-[address] [facility] Comment on above: Performed By: #### C BCA, BMP #### [facility] ([id number]) [address], [address] [place] [address] Creatinine [Mass/Vol] 0.62 mg/dL Normal 0.40-1.[address] [facility] Comment on above: Result Comment: METH OD TRACEABLE TO IDMS STANDARD Performed By: #### C BCA, BMP #### [facility] ([id number]) [address], [address] [place] [address] eGFR (CKD-EPI) NON-RACE DEPENDENT >90 Normal >[address] [facility] Comment on above: Result Comment: Reported eGFR is based on the CKD-EPI 2020 equation that does not use a race coefficient. Performed By: #### C BCA, BMP #### [facility] ([id number]) [address] [address] [address] [place] [address] Glucose [Mass/Vol] 99 mg/dL Normal 65-99 [facility] Comment on above: Performed By: #### C BCA, BMP #### [facility] ([id number]) [address] [address] [address] [place] [address] Potassium [Moles/Vol] 3.8 mmol/L Normal 3.5-5.[address] [facility] Comment on above: Performed By: #### C BCA, BMP #### [facility] ([id number]) [address] [address] Sodium [Moles/Vol] 140 mmol/L Normal 134-146 [facility] Comment on above: Performed By: #### C BCA, BMP #### [facility] ([id number]) [address] [address] [address] [address] [place] [address] Urea nitrogen [Mass/Vol] 15 mg/dL Normal 5-[address] [facility] Comment on above: Performed By: #### C BCA, BMP #### [facility] ([id number]) [address] [address] CBC AND AUTO DIFFon 09-30-19 24 Eosinophils (Bld) [#/Vol] 0.0 10*3/uL Normal 0.0-0.[address] [facility] Comment on above: Performed By: #### C BCA, BMP #### [facility] ([id number]) [address] [address] Eosinophils/100 WBC (Bld) 1.0 % Normal [facility] Comment on above: Performed By: #### C BCA, BMP #### [facility] ([id number]) [address] [place] [address] Erythrocyte distribution width (RBC) [Ratio] 15.0 % Normal 11.5-15.[address] [facility] Comment on above: Performed By: #### Amanda WILKINSON, BMP #### [facility] ([id number]) [address] [place] [address] Hematocrit (Bld) [Volume fraction] 38.6 % Normal 35-[address] [facility] Comment on above: Performed By: #### C MINH, BMP #### [facility] ([id number]) [address], [facility] [address] [place] [address] Hemoglobin (Bld) [Mass/Vol] 12.9 g/dL Normal 11.7-15.[address] [facility] Comment on above: Performed By: #### C MINH, BMP #### [facility] ([id number]) [address], [address] [place] [address] Lymphocytes (Bld) [#/Vol] 1.6 10*3/uL Normal 1.0-3.[address] [facility] Comment on above: Performed By: #### Amanda WILKINSON, BMP #### [facility] ([id number]) [address], [address] [place] [address] Lymphocytes/100 WBC (Bld) 49.0 % Normal [facility] Comment on above: Performed By: #### Amanda WILKINSON, BMP #### [facility] ([id number]) [address] [address] [place] [address] MCH (RBC) [Entitic mass] 39.9 pg High 27-[address] [facility] Comment on above: Performed By: #### C MINH, BMP #### [facility] ([id number]) [address] [address] [place] [address] MCHC (RBC) [Mass/Vol] 33.5 g/dL Normal 32-[address] [facility] Comment on above: Performed By: #### C MINH, BMP #### [facility] ([id number]) [address], [address] [place] [address] MCV (RBC) [Entitic vol] 119 fL High 80-[address] [facility] Comment on above: Performed By: #### C MINH, BMP #### [facility] ([id number]) [address], [address] [place] [address] Monocytes (Bld) [#/Vol] 0.4 10*3/uL Normal 0-0.[address] [facility] Comment on above: Performed By: #### C MINH, BMP #### [facility] ([id number]) [address], [address] [place] [address] Monocytes/100 WBC (Bld) 11.0 % Normal [facility] Comment on above: Performed By: #### C MINH, BMP #### [facility] ([id number]) [address], [address] [place] [address] Neutrophils (Bld) [#/Vol] 1.2 10*3/uL Low 1.5-6.[address] [facility] Comment on above: Performed By: #### C MINH, BMP #### [facility] ([id number]) [address], [address] [place] [address] Platelet mean volume (Bld) [Entitic vol] 8.5 fL Normal 7-[address] [facility] Comment on above: Performed By: #### C MINH, BMP #### [facility] ([id number]) [address], [address] [place] [address] Platelets (Bld) [#/Vol] 316 10*3/uL Normal 150-[address] [facility] Comment on above: Performed By: #### C MINH, BMP #### [facility] ([id number]) [address], [address] [place] [address] RBC COUNT 3.24 X10E12/L Low 3.80-5.[address] [facility] Comment on above: Performed By: #### Amanda WILKINSON, BMP #### [facility] ([id number]) [address], [address] [place] [address] RBC morphology finding Nom (Bld) NORMAL Normal [facility] Comment on above: Performed By: #### Amanda WILKINSON, BMP #### [facility] ([id number]) [address], [facility] [address] [place] [address] SEG NEUTROPHIL 39.0 % Normal [facility] Comment on above: Performed By: #### Amanda WILKINSON, BMP #### [facility] ([id number]) [address], [address] [address] WBC (Bld) [#/Vol] 3.2 10*3/uL Low 4.0-11.0 [facility] Comment on above: Performed By: #### Amanda WILKINSON, BMP #### [facility] ([id number]) [address], [address] [address] BLOOD CULTUREon 09-26-2023 Bacteria identified Aer cx Nom (Bld) CULTURE RESULTS NO SPECIMEN RECEIVED IN LABORATORY ACCOUNT CREDITED Normal [facility] Comment on above: Performed By: #### 1 7928-3 #### [facility] ([id number]) [address], [address] [address] XR CHEST 2 VWSon 09-19-2023 XR CHEST 2 VWS XR CHEST 2 VWS XR CHEST 2 VWS HISTORY: Cerebrovascular accident, Anesthesia clearance. Preadmission testing. COMPARISON: Chest radiograph 01/09/2023, 01/08/2023, 01/03/2023. CTA chest 12/25/2022. FINDINGS: The trachea is midline. The cardiomediastinal silhouette is not enlarged. No pneumothorax or pleural effusion. No focal consolidation. Interval resolution of left lung airspace disease and removal of tracheostomy. IMPRESSION: * No radiographic evidence of acute pulmonary process. * Interval resolution of left lung airspace disease. Approved by Resident Gamaliel Hernandez MD on 09/19/2023 1:55 PM I, Eldon Xavier MD have personally reviewed the image(s) and agree with and/or edited the report Finalized by Eldon Xavier MD on 09/19/2023 2:[address] [facility] URINALYSISon 07-25-2023 Bilirubin Ql (U) Negative Normal NEG [facility] Comment on above: Performed By: #### U A #### [facility] ([id number]) [address] [place] [address] [place] [address] BLOOD/HGB Large Abnormal NEG [facility] Comment on above: Performed By: #### U A #### [facility] ([id number]) [address] [place] [address] [place] [address] CA OXALATE CRYSTALS PRESENT Abnormal NONE [facility] Comment on above: Performed By: #### U A #### [facility] ([id number]) [address] [place] [address] [place] [address] Color (U) YELLOW Normal YELLOW [facility] Comment on above: Performed By: #### U A #### [facility] ([id number]) [address] [place] [address] [place] [address] Glucose Ql (U) Negative Normal NEG [facility] Comment on above: Performed By: #### U A #### [facility] ([id number]) [address] [place] [address] [place] [address] Ketones Ql (U) Negative Normal NEG [facility] Comment on above: Performed By: #### U A #### [facility] ([id number]) [address] [place] [address] [place] [address] Leukocyte esterase Test strip Ql (U) SMALL Abnormal NEG [facility] Comment on above: Performed By: #### U A #### [facility] ([id number]) [address] [place] [address] Nitrite Ql (U) Positive Abnormal NEG [facility] Comment on above: Performed By: #### U A #### [facility] ([id number]) [address] [place] [address] pH (U) 6.0 [pH] Normal 5.0-8.[address] [facility] Comment on above: Performed By: #### U A #### [facility] ([id number]) [address] [place] [address] Protein Ql (U) Negative Normal NEG [facility] Comment on above: Performed By: #### U A #### [facility] ([id number]) [address] [place] [address] R.B.CELLS 10 /hpf High 0-[address] [facility] Comment on above: Performed By: #### U A #### [facility] ([id number]) [address] [place] [address] Specific gravity (U) [Rel density] 1.025 Normal 1.003-1.[address] [facility] Comment on above: Performed By: #### U A #### [facility] ([id number]) [address] [place] [address] SQUAMOUS EPITHELIUM 10 /hpf High 0-[address] [facility] Comment on above: Performed By: #### U A #### [facility] ([id number]) [address] [place] [address] [place] [address] TURBIDITY HAZY Abnormal CLEAR [facility] Comment on above: Performed By: #### U A #### [facility] ([id number]) [address] [place] [address] Urobilinogen Qn (U) 0.2 {Tra'U}/dL Normal <1.[address] [facility] Comment on above: Performed By: #### U A #### [facility] ([id number]) [address] [place] [address] W.B.CELLS 31 /hpf High 0-[address] [facility] Comment on above: Performed By: #### U A #### [facility] ([id number]) [address] [place] [address] URINE CULTUREon 07-25-2023 Bacteria identified Cx Nom (U) CULTURE RESULTS >100,000 ORGANISMS/mL KLEBSIELLA PNEUMONIAE [ S = SUSCEPTIBLE R = RESISTANT I = INTERMEDIATE S-DO = Susceptible-dose dependent NS = Non-suscceptible NO = No Interpretation ] Organism: KLEBSIELLA PNEUMONIAE Antibiotic Interpretation ANAID Status AMPICILLIN R 8 F AMP/SULBACTAM S <=2/1 F CEFAZOLIN S <=4 F CEFTRIAXONE S <=1 F CIPROFLOXACIN S 1 F GENTAMICIN S <=1 F LEVOFLOXACIN S 1 F NITROFURANTOIN S <=16 F PIPERACIL/TAZOBACTAM S <=4 F TOBRAMYCIN S <=1 F TRIMETH/SULFAMETHOXAZOLE S <=1/[address] [facility] Comment on above: Performed By: #### 6 30-4 #### [facility] ([id number]) [address] [facility] [place] [address] CT BRAIN WO CONTon 4 CT BRAIN WO CONT CT BRAIN WO CONT CLINICAL INFORMATION: Cerebrovascular accident (CVA), unspecified mechanism ([facility]) TECHNIQUE: CT BRAIN WO CONT CT images of the brain were obtained. Patient status post right craniotomy with protrusion of the cerebrum. However, this is improved in comparison the prior exam. There is extensive right cerebral encephalomalacia. Extra-axial dilatation of the ventricles noted, right more so than left. No new intracranial hemorrhage. No obvious acute cortical infarct. Sinuses are clear. IMPRESSION: Post right craniectomy with persistent protrusion and severe right cerebral encephalomalacia, secondary to previous hemorrhage. All CT scans at this facility use dose modulation, iterative reconstruction, and/or weight based dosing when appropriate to reduce radiation dose to as low as reasonably achievable. Finalized by Tomas Richards MD on 06/10/2023 3:[address] [facility] CALCIUMon 08-02-2022 Calcium [Mass/Vol] 9.2 mg/dL Normal 8.5-10.1 [facility] Comment on above: Performed By: #### C A, CREA #### [facility] [address] [place], [place] [address] Dr. Carmelina Sarah CREATININEon 08-02-2022 Creatinine [Mass/Vol] 0.88 mg/dL Normal 0.55-1.02 [facility] Comment on above: Performed By: #### C A, CREA ####[facility] [address] [place] [address]DrMelly Sarah EGFR-AF LITHUANIAN >60 Normal >=60 [facility] Comment on above: Performed By: #### C A, CREA ####[facility] [address] [place] [address]DrMelly Sarah EGFR-NON AF LITHUANIAN >60 Normal >=60 [facility] Comment on above: Performed By: #### C A, CREA ####[facility] [address] [place] [address]Dr. Carmelina Sarah MG MAMM SCREEN 3D CONCEPCIÓN CADon 03-24-2022 MG MAMM SCREEN 3D CONCEPCIÓN CAD Patient: ANGELIQUE MELO Exam Date: 03/24/2022 : 1965 Gender:F Ordering : DR ALEX THOMASON . Admission #: [id number] Family : Order #: [id number] CLICK HERE TO VIEW EXAM RADIOLOGY REPORT PROCEDURE: MAMMOGRAM SCREENING 3D BILATERAL CAD COMPARISON: MG MAMM SCREEN 3D CONCEPCIÓN CAD, 03/11/2021. MG MAMM SCREEN CONCEPCIÓN W CAD, 08/14/2018. INDICATIONS: Screening mammography Calculator Name NCI Breast Cancer Risk Assessment Tool 5 Year Breast Cancer Risk 0.90% Lifetime Breast Cancer Risk 5.10% Personal Breast Cancer No Personal Ovarian Cancer No Treatments None Family Cancers Father with hodgkins lymphoma cancer at age 46. LOCATION: [facility] BREAST COMPOSITION: Scattered areas fibroglandular density. FINDINGS: DIAGNOSTIC CATEGORY 1--NEGATIVE. NO CHANGE FROM COMPARISON ASSESSMENT. Scattered benign-appearing calcifications are present. Scattered benign-appearing lymph nodes are present. RIGHT BREAST: No significant suspicious finding. LEFT BREAST: No significant suspicious finding. RECOMMENDATIONS: ROUTINE MAMMOGRAM AND CLINICAL EVALUATION IN 12 MONTHS. PLEASE NOTE: A NORMAL MAMMOGRAM DOES NOT EXCLUDE THE POSSIBILITY OF BREAST CANCER. A CLINICALLY SUSPICIOUS PALPABLE LUMP SHOULD BE BIOPSIED. Dictated by: Frances Quezada MD on 03/25/2022 at 08:10 Approved by: Frances Quezada MD on 03/25/2022 at 08:12 [facility] XR DEXA BONE DENSITYon 03-24 XR DEXA BONE DENSITY DEXA Bone Density Study CLINICAL: Evaluate bone mineral density. Postmenopausal COMPARISON: None FINDINGS: The bone density study was assessed by dual-energy x-ray absorptiometry with the Zkatter scanner. The test results are expressed in T-Score, which is used for diagnosis for osteoporosis, and reflects the standard deviations from the mean peak bone mineral density in young adults. Additional information regarding the Z-Score reflects the standard deviations from the mean peak bone mineral density for age- and gender- matched subject. Lumbar Spine (L1-L4): BMD (gm/cm2): 0.9 x 5 T-Score: -1.9 Left Hip: BMD (gm/cm2): 0.713 T-Score: -2.3 Left Femoral Neck: BMD (gm/cm2): 0.771 T-Score: -1.9 Right Hip: BMD (gm/cm2): 0.676 T-Score: -2.6 Right Femoral Neck: BMD (gm/cm2): O.685 T-Score: -2.5 IMPRESSION: 1. Lumbar spine indicates osteopenia. 2. Left hip indicates osteopenia. 3. Right hip indicates early osteoporosis. REFERENCE: In children, postmenopausal women and males under age 50 not at increased risk for fractures, only Z-Scores, not T-Scores, are used to indicate fracture risk. A Z-Score above -2.0 is defined as within the expected range for age and Z-Score at or less than -2.0 is below the expected range for age. A Z-Score below the expected range for age in a patient with recent fractures and/or chronic corticosteroid treatment is consistent with a diagnosis of osteoporosis. In postmenopausal women and males over 50, comparison of the measured bone mineral density with the average value in young normal subjects (the T-Score) has been found to be useful in assessing fracture risk. Fracture risk approximately doubles for each 1.0 standard deviation (SD) that the individual's hip or spine bone mineral density is below the average value of young normal subjects. The World health Organization (WHO) has provided the following definitions: 1. Normal: T-Score within one standard deviation of young adult mean value (T-Score greater than -1.0). 2. Osteopenia (low bone mass): T-Score more than one standard deviation below the young adult mean but less than 2.5 standard deviations below the young adult mean (T-Score between -1.0 and -2.5). 3. Osteoporosis: T-Score more than 2.5 standard deviations below the young adult mean (T-Score less than -2.5). 4. Sever Osteoporosis (established osteoporosis): T-Score more than 2.5 standard deviations below young adult and one or more fragility fracture (T-Score less than -2.5 + fragility fractures). Electronically authenticated by: FRANCES NICHOLS Date: 2022-03-24 09:29 Normal [facility] CBC AUTO DIFFon 02-22-2022 BASO # 0.3 103/ul Critically high 0.0-0.1 [facility] Comment on above: Performed By: #### C BC ####[facility] [address] [place], [place] [address]Dr. Carmelina Sarah Basophils/100 WBC (Bld) 3.0 % Critically high 0.2-2.0 [facility] Comment on above: Performed By: #### C BC ####[facility] [address] [place] [address]Dr. Yilan Sarah EO # 0.3 103/ul Normal 0.0-0.7 [facility] Comment on above: Performed By: #### C BC ####[facility] [address] [place], [place] [address]Dr. Yilan Sarah Eosinophils/100 WBC (Bld) 3.1 % Normal 0.9-7.0 [facility] Comment on above: Performed By: #### C BC ####[facility] [address] [place], [place] [address]Dr. Carmelina Sarah Erythrocyte distribution width (RBC) [Ratio] 15.8 % Critically high 11.0-15.0 [facility] Comment on above: Performed By: #### C BC ####[facility] [address] [place] [address]Dr. Carmelina Sarah Hematocrit (Bld) [Volume fraction] 48.5 % Critically high 36.0-48.0 [facility] Comment on above: Performed By: #### C BC ####[facility] [address] [place] [address]Dr. Candemargarita Sarah Hemoglobin (Bld) [Mass/Vol] 15.6 g/dL Normal 12.0-16.0 [facility] Comment on above: Performed By: #### C BC ####[facility] [address] [place] [address]Dr. Carmelina Sarah IG # 0.05 10e3/ul Critically high 0.00-0.[address] [facility] Comment on above: Performed By: #### C BC ####[facility] [address] [place] [address]Dr. Carmelina Sarah IG % 0.5 % Normal 0.0-0.5 [facility] Comment on above: Performed By: #### C BC ####[facility] [address] [place] [address]Dr. Carmelina Sarah LYMPH # 3.2 103/ul Normal 1.2-3.8 [facility] Comment on above: Performed By: #### C BC ####[facility] [address] [place] [address]Dr. Carmelina Sarah Lymphocytes/100 WBC (Bld) 33.4 % Normal 20.5-60.0 [facility] Comment on above: Performed By: #### C BC ####[facility] [address] [place] [address]Dr. Carmelina Sarah MANUAL DIFF REQ NO Normal [facility] Comment on above: Performed By: #### C BC ####[facility] [address] [place] [address]Dr. Carmelina Sarah MCH (RBC) [Entitic mass] 28.3 pg Normal 26.7-34.0 [facility] Comment on above: Performed By: #### C BC ####[facility] [address] [place] [address]Dr. Carmelina Sarah MCHC (RBC) [Mass/Vol] 32.2 g/dL Normal 29.9-35.2 [facility] Comment on above: Performed By: #### C BC ####[facility] [address] [place] [address]Dr. Carmelina Tyrel MCV (RBC) [Entitic vol] 88.0 fL Normal 81.0-99.0 [facility] Comment on above: Performed By: #### C BC ####[facility] [address] [place], [place] [address]Dr. Carmelina Tyrel MONO # 0.7 103/ul Normal 0.3-0.8 [facility] Comment on above: Performed By: #### C BC ####[facility] [address] [place], [place] [address]Dr. Candemargarita Sarah Monocytes/100 WBC (Bld) 7.7 % Normal 1.7-12.0 [facility] Comment on above: Performed By: #### C BC ####[facility] [address] [place], [place] [address]Dr. Carmelina Sarah NEUT # 5.0 103/ul Normal 1.4-6.5 [facility] Comment on above: Performed By: #### C BC ####[facility] [address] [place], [place] [address]Dr. Candemargarita Sarah Neutrophils/100 WBC (Bld) 52.3 % Normal 43.0-75.0 [facility] Comment on above: Performed By: #### C BC ####[facility] [address] [place], [place] [address]Dr. Carmelina Tyrel Platelet mean volume (Bld) [Entitic vol] 10.8 fL Normal 9.5-13.5 [facility] Comment on above: Performed By: #### C BC ####[facility] [address] [place], [place] [address]Vh. Carmelina Sarah PLT 765 103/ul Critically high 150-450 [facility] Comment on above: Performed By: #### C BC ####[facility] [address] [place], [place] [address]La. Carmelina Sarah RBC 5.51 106/ul Critically high 4.20-5.40 [facility] Comment on above: Performed By: #### C BC ####[facility] [address] [place], [place] [address]Hk. Carmelina Sarah WBC 9.6 103/ul Normal 4.0-11.0 [facility] Comment on above: Performed By: #### C BC ####[facility] [address] [place], [place] [address]Fs. Carmelina Sarah FREE T3on 02-22-2022 FREE T3 3.14 pg/mlL Normal 2.18-3.98 [facility] Comment on above: Performed By: #### F T3, TSH, T4, LIPID, CMP #### [facility] [address] [place] [address] [address] Carmelina Sarah GLYCOHEMOGLOBIN A1Con 2021 ADA RECOMMENDATION SEE BELOW Normal [facility] Comment on above: Result Comment: ADA RECOMMENDED LIMIT 4.0 - 6.0 ADA THERAPEUTIC TARGET < 7.0 ACTION SUGGESTED > 7.0 Performed By: #### A 1C #### [facility] [address] [place] [address] [address] Carmelina Sarah Glucose [Mass/Vol] 108 mg/dL Normal [facility] Comment on above: Performed By: #### A 1C #### [facility] [address] [place] [address] [address] Carmelina Sarah HbA1c (Bld) [Mass fraction] 5.4 % Normal 4.5-6.2 [facility] Comment on above: Performed By: #### A 1C #### [facility] [address] [place] [address] [address] Carmelina Sarah LIPID PROFILEon 02-22-2022 CHOL-HDL RATIO NORM SEE BELOW Normal [facility] Comment on above: Result Comment: 3.3 - 4.4 LOW RISK 4.4 - 7.1 AVERAGE RISK 7.1 - 11.0 MODERATE RISK >11.0 HIGH RISK Performed By: #### F T3, TSH, T4, LIPID, CMP #### [facility] [address] [place] [address] [address] Carmelina Sarah Cholesterol [Mass/Vol] 158 mg/dL Normal <=200 [facility] Comment on above: Performed By: #### F T3, TSH, T4, LIPID, CMP #### [facility] [address] [place] [address] [address] Carmelina Sarah Cholesterol in HDL [Mass/Vol] 62 mg/dL Critically high 40-60 [facility] Comment on above: Performed By: #### F T3, TSH, T4, LIPID, CMP #### [facility] [address] [place] [address] [address] Carmelina Sarah Cholesterol in LDL [Mass/Vol] 81.2 mg/dL Normal [facility] Comment on above: Performed By: #### F T3, TSH, T4, LIPID, CMP #### [facility] [address] [place] [address] [address] Carmelina Sarah Cholesterol.total/ Cholesterol in HDL [Mass ratio] 2.5 {ratio} Normal [facility] Comment on above: Performed By: #### F T3, TSH, T4, LIPID, CMP #### [facility] [address] [place] [address] [address] Carmelina Sarah HDL NORMAL > or = 60 mg/dl - LO W CARDIOVASCULAR RISK <40 mg/dl - HIGH CARDIOVASCULAR RISK Normal [facility] Comment on above: Performed By: #### F T3, TSH, T4, LIPID, CMP #### [facility] [address] [place] [address] [address] Carmelina Sarah LDL CALC NORMAL SEE BELOW [facility] Comment on above: Result Comment: <100 mg/dl OPTIMAL 100 - 129 mg/dl NEAR OR ABOVE OPTIMAL 130 - 159 mg/dl BORDERLINE HIGH 160 - 189 mg/dl HIGH >190 mg/dl VERY HIGH Performed By: #### F T3, TSH, T4, LIPID, CMP #### [facility] [address] [place] [address] [address] Carmelina Sarah Triglyceride [Mass/Vol] 74 mg/dL Normal <=150 [facility] Comment on above: Performed By: #### F T3, TSH, T4, LIPID, CMP #### [facility] [address] [place] [address] [address] Carmelina Sarah VLDL CALC 14.8 mg/dL Normal [facility] Comment on above: Performed By: #### F T3, TSH, T4, LIPID, CMP #### [facility] [address] [place] [address] Dr. Carmelina Sarah PROF 14(COMP METB)on 022 Albumin [Mass/Vol] 3.8 g/dL Normal 3.4-5.0 [facility] Comment on above: Performed By: #### F T3, TSH, T4, LIPID, CMP #### [facility] [address] [place] [address] Dr. Carmelina Sarah Albumin/Globulin [Mass ratio] 1.0 {ratio} Normal [facility] Comment on above: Performed By: #### F T3, TSH, T4, LIPID, CMP #### [facility] [address] [place] [address] Dr. Carmelina Sarah ALP [Catalytic activity/Vol] 102 U/L Normal 46-116 [facility] Comment on above: Performed By: #### F T3, TSH, T4, LIPID, CMP #### [facility] [address] [place] [address] Dr. Carmelina Sarah ALT [Catalytic activity/Vol] 22 U/L Normal 14-59 [facility] Comment on above: Performed By: #### F T3, TSH, T4, LIPID, CMP #### [facility] [address] [place] [address] Dr. Carmelina Sarah Anion gap [Moles/Vol] 11.1 mmol/L Normal [facility] Comment on above: Performed By: #### F T3, TSH, T4, LIPID, CMP #### [facility] [address] [place] [address] Dr. Carmelina Sarah AST [Catalytic activity/Vol] 21 U/L Normal 15-37 [facility] Comment on above: Performed By: #### F T3, TSH, T4, LIPID, CMP #### [facility] [address] [address] [address] Carmelina Sarah Bilirubin [Mass/Vol] 0.5 mg/dL Normal 0.2-1.0 [facility] Comment on above: Performed By: #### F T3, TSH, T4, LIPID, CMP #### [facility] [address] [address] [address] Carmelina Sarah Calcium [Mass/Vol] 9.2 mg/dL Normal 8.5-10.1 [facility] Comment on above: Performed By: #### F T3, TSH, T4, LIPID, CMP #### [facility] [address] [place] [address] Dr. Carmelina Sarah Chloride [Moles/Vol] 104 mmol/L Normal 98-107 [facility] Comment on above: Performed By: #### F T3, TSH, T4, LIPID, CMP #### [facility] [address] [place] [address] Dr. Carmelina Sarah CO2 [Moles/Vol] 27.6 mmol/L Normal 21.0-32.0 [facility] Comment on above: Performed By: #### F T3, TSH, T4, LIPID, CMP #### [facility] [address] [place] [address] Dr. Carmelina Sarah Creatinine [Mass/Vol] 0.93 mg/dL Normal 0.55-1.02 [facility] Comment on above: Performed By: #### F T3, TSH, T4, LIPID, CMP #### [facility] [address] [address] [address] Carmelina Sarah EGFR-AF LITHUANIAN >60 Normal >=60 [facility] Comment on above: Performed By: #### F T3, TSH, T4, LIPID, CMP #### [facility] [address] [place] [address] Dr. Carmelina Sarah EGFR-NON AF LITHUANIAN >60 Normal >=60 [facility] Comment on above: Performed By: #### F T3, TSH, T4, LIPID, CMP #### [facility] [address] [address] [address] Carmelina Sarah Globulin (S) [Mass/Vol] 3.7 g/dL Normal [facility] Comment on above: Performed By: #### F T3, TSH, T4, LIPID, CMP #### [facility] [address] [place] [address] Dr. Carmelina Sarah Glucose [Mass/Vol] 90 mg/dL Normal 74-106 [facility] Comment on above: Performed By: #### F T3, TSH, T4, LIPID, CMP #### [facility] [address] [place] [address] Dr. Carmelina Sarah Potassium [Moles/Vol] 3.7 mmol/L Normal 3.5-5.1 [facility] Comment on above: Performed By: #### F T3, TSH, T4, LIPID, CMP #### [facility] [address] [place] [address] Dr. Carmelina Sarah Protein [Mass/Vol] 7.5 g/dL Normal 6.4-8.2 [facility] Comment on above: Performed By: #### F T3, TSH, T4, LIPID, CMP #### [facility] [address] [place] [address] Dr. Carmelina Sarah Sodium [Moles/Vol] 139 mmol/L Normal 136-145 [facility] Comment on above: Performed By: #### F T3, TSH, T4, LIPID, CMP #### [facility] [address] [place] [address] Dr. Carmelina Sarah Urea nitrogen [Mass/Vol] 19.0 mg/dL Critically high 7.0-18.0 [facility] Comment on above: Performed By: #### F T3, TSH, T4, LIPID, CMP #### [facility] [address] [place] [address] Dr. Carmelina Sarah Urea nitrogen/Creatinin e [Mass ratio] 20.4 mg/mg Normal [facility] Comment on above: Performed By: #### F T3, TSH, T4, LIPID, CMP #### [facility] [address] [place] [address] Dr. Carmelina Sarah T4on 02-22-2022 T4 [Mass/Vol] 8.10 ug/dL Normal 4.80-13.90 [facility] Comment on above: Performed By: #### F T3, TSH, T4, LIPID, CMP #### [facility] [address] [place] [address] Dr. Carmelina Sarah TSHon 02-22-2022 TSH 0.985 uIU/mL Normal 0.358-3.74 0 [facility] Comment on above: Performed By: #### F T3, TSH, T4, LIPID, CMP #### [facility] [address] [place] [address] Dr. Carmelina Sarah VITAMIN D 25 OHon 02-22-2022 VIT D 25-OH 51.9 ng/mL Normal [facility] Comment on above: Performed By: #### V ITAD #### [facility] [address] [place] [address] Dr. Carmelina Sarah VIT D RANGES SEE BELOW Normal [facility] Comment on above: Result Comment: <20 ng/mL Vit D deficient 20 - <30 ng/mL Vit D insufficient 30 - 100 ng/mL Vit D sufficient >100 ng/mL Potential Toxicity Performed By: #### V ITAD #### [facility] [address] [place] [address] Dr. Carmelina Sarah COVID Quick Testingon 2020 Result Negative [email or web address] Other [facility] [place] [place] SARS-CoV-2 (COVID-19) RNA TIRSO+probe Ql (Unsp spec) Negative Normal Negative [facility] Comment on above: Order Comment: Healt hcare Worker?: N Result Comment: Refe rence: Negative Testing for SARS-CoV-2 by RT-PCR This test was developed and its performance characteristics determined by [employer] ([email or web address]) and validated at the [facility]. This test has not been FDA cleared or approved. This test has been authorized by FDA under an Emergency Use Authorization (EUA). This test has been validated in accordance with the FDA's Guidance Document (Policy for Diagnostics Testing in Laboratories Certified to Perform High Complexity Testing under CLIA prior to Emergency Use Authorization for Coronavirus Disease-2019 during the Public Health Emergency) issued on 2019. This test is only authorized for the duration of time the declaration that circumstances exist justifying the authorization of the emergency use of in vitro diagnostic tests for detection of SARS-CoV-2 virus and/or diagnosis of COVID-19 infection under section 564(b)(1) of the Act, 21 U.S.C. 360bbb-3(b)(1), unless the authorization is terminated or revoked sooner. PERFORMED BY: [place] [address] PATHOLOGIST TYPING SECRETARY TOSHIA GILLIS M.D. Performed By: #### C OVID-19 [facility] [place] [place] #### [facility] [address] [place] [address] COVID-19 Positive/Negativeon 06-09-2020 COVID-19 Positive/Negative Negative Negative [facility] Comment on above: Reference: NegativeT esting for SARS-CoV-2 by RT-PCRThis test was developed and its performance characteristics determined by [employer] ([email or web address]) and validated at the [facility]. This test has not been FDA cleared or approved. This test has been authorized by FDA under an Emergency Use Authorization (EUA). This test has been validated in accordance with the FDA's Guidance Document (Policy for Diagnostics Testing in Laboratories Certified to Perform High Complexity Testing under CLIA prior to Emergency Use Authorization for Coronavirus Disease-2019 during the Public Health Emergency) issued on 2019. This test is only authorized for the duration of time the declaration that circumstances exist justifying the authorization of the emergency use of in vitro diagnostic tests for detection of SARS-CoV-2 virus and/or diagnosis of COVID-19 infection under section 564(b)(1) of the Act, 21 U.S.C. 360bbb-3(b)(1), unless the authorization is terminated or revoked sooner. Otheron 06-09-2020 Coronavirus 2019 PCR Interp N/A [facility] Automated basophil %on 06-06 Basophils/100 WBC (Bld) 2.9 % [facility] Automated basophil counton 0 06-06-2020 Basophils (Bld) [#/Vol] 0.3 10*3/uL 0.0-0.2 [facility] Automated blood lymphocyte c ount (number/volume)on 06-06-2020 Lymphocytes (Bld) [#/Vol] 2.4 10*3/uL 1.00-4.8 [facility] Automated blood lymphocyte c ount as percentage of total leukocyteson 06-06-2020 Lymphocytes/100 WBC (Bld) 26.6 % [facility] Automated blood monocyte cou nton 06-06-2020 Monocytes (Bld) [#/Vol] 1.0 10*3/uL 0.0-0.8 [facility] Automated blood platelet cou nt (count/volume)on 06-06-2020 Platelets (Bld) [#/Vol] 527 10*3/uL 150-450 [facility] Automated blood platelet joi n volume measurementon 06-06-2020 Platelet mean volume (Bld) [Entitic vol] 9.6 fL 6.3-10.7 [facility] Automated eosinophil %on Eosinophils/100 WBC (Bld) 4.8 % [facility] Automated eosinophil counton 06-06-2020 Eosinophils (Bld) [#/Vol] 0.4 10*3/uL 0.0-0.45 [facility] Automated erythrocyte distri bution width ratioon 06-06-2020 Erythrocyte distribution width (RBC) [Ratio] 15.8 % 11.9-15.3 [facility] Automated erythrocyte mean c orpuscular hemoglobin (mass per erythrocyte)on 06-06-2020 MCH (RBC) [Entitic mass] 28.7 pg 24.7-34.3 [facility] Automated erythrocyte mean c orpuscular hemoglobin concentration measurement (mass/volon 06-06-2020 MCHC (RBC) [Mass/Vol] 33.4 g/dL 32.0-35.0 [facility] Automated erythrocyte mean c orpuscular volumeon 06-06-2020 MCV (RBC) [Entitic vol] 85.9 fL 80-100 [facility] Automated monocyte %on 06-06 Monocytes/100 WBC (Bld) 10.9 % [facility] Automated neutrophil %on Neutrophils/100 WBC (Bld) 54.8 % [facility] Blood erythrocytes automated count (number/volume)on 06-06-2020 RBC (Bld) [#/Vol] 5.10 10*6/uL 3.60-5.00 [facility] Blood hemoglobin measurement (mass/volume)on 06-06-2020 Hemoglobin (Bld) [Mass/Vol] 14.7 g/dL 11.8-15.4 [facility] Blood leukocytes automated c ount (number/volume)on 06-06-2020 WBC (Bld) [#/Vol] 9.0 10*3/uL 4.5-11.0 [facility] Blood neutrophil count by au tomated method (number/volume)on 06-06-2020 Neutrophils (Bld) [#/Vol] 4.9 10*3/uL 1.8-7.7 [facility] Body fluid albumin measureme nt (mass/volume)on 06-06-2020 Albumin (Body fld) [Mass/Vol] 4.0 g/dL 3.2-5.5 [facility] Complete Blood Count Auto Di ffon 06-06-2020 Basophils (Bld) [#/Vol] 0.3 10*3/uL High 0.0-0.2 [facility] Comment on above: Result Comment: PERF ORMED BY: [facility] [address] [place] [address] PATHOLOGIST TYPING SECRETARY TOSHIA GILLIS M.D. Performed By: #### C MP, CBC #### [facility] [address] [place] [address] [place] Basophils/100 WBC (Bld) 2.9 % Normal . [facility] Comment on above: Performed By: #### C MP, CBC #### [facility] [address] Eosinophils (Bld) [#/Vol] 0.4 10*3/uL Normal 0.0-0.45 [facility] Comment on above: Performed By: #### C MP, CBC #### [place] [address] [place] Eosinophils/100 WBC (Bld) 4.8 % Normal . [facility] Comment on above: Performed By: #### C MP, CBC #### [address] Erythrocyte distribution width (RBC) [Ratio] 15.8 % High 11.9-15.3 [facility] Comment on above: Performed By: #### C MP, CBC #### [address] Hematocrit (Bld) [Volume fraction] 43.8 % Normal 34.0-46.4 [facility] Comment on above: Performed By: #### C MP, CBC #### [address] Hemoglobin (Bld) [Mass/Vol] 14.7 g/dL Normal 11.8-15.4 [facility] Comment on above: Performed By: #### C MP, CBC #### [place] [address] [place] Lymphocytes (Bld) [#/Vol] 2.4 10*3/uL Normal 1.00-4.8 [facility] Comment on above: Performed By: #### C MP, CBC #### [place] [address] [place] Lymphocytes/100 WBC (Bld) 26.6 % Normal . [facility] Comment on above: Performed By: #### C MP, CBC #### [address] MCH (RBC) [Entitic mass] 28.7 pg Normal 24.7-34.3 [facility] Comment on above: Performed By: #### C MP, CBC #### [address] MCV (RBC) [Entitic vol] 85.9 fL Normal 80-100 [facility] Comment on above: Performed By: #### C MP, CBC #### [facility] [address] Mean Corpuscular HGB Conc 33.4 g/dL Normal 32.0-35.0 [facility] Comment on above: Performed By: #### C MP, CBC #### [facility] [address] [place] [address] [place] Monocytes (Bld) [#/Vol] 1.0 10*3/uL High 0.0-0.8 [facility] Comment on above: Performed By: #### C MP, CBC #### [facility] [address] [place] [address] [place] Monocytes/100 WBC (Bld) 10.9 % Normal . [facility] Comment on above: Performed By: #### C MP, CBC #### [facility] [address] [place] [address] [place] Neutrophils (Bld) [#/Vol] 4.9 10*3/uL Normal 1.8-7.7 [facility] Comment on above: Performed By: #### C MP, CBC #### [facility] [address] [place] [address] [place] Neutrophils/100 WBC (Bld) 54.8 % Normal . [facility] Comment on above: Performed By: #### C MP, CBC #### [facility] [address] [id number] [place] Nucleated RBC/100 WBC (Bld) [Ratio] 0.0 % Normal 0-0.5 [facility] Comment on above: Performed By: #### C MP, CBC #### [facility] [address] [place] [address] [place] Platelet mean volume (Bld) [Entitic vol] 9.6 fL Normal 6.3-10.7 [facility] Comment on above: Performed By: #### C MP, CBC #### [facility] [address] [id number] [place] Platelets (Bld) [#/Vol] 527 10*3/uL High 150-450 [facility] Comment on above: Performed By: #### C MP, CBC #### [address] RBC (Bld) [#/Vol] 5.10 10*6/uL High 3.60-5.00 [facility] Comment on above: Performed By: #### C MP, CBC #### [address] WBC (Bld) [#/Vol] 9.0 10*3/uL Normal 4.5-11.0 [facility] Comment on above: Performed By: #### C MP, CBC #### [facility] [address] [place] [address] Comprehensive Metabolic Pane chrystal 06-06-2020 Albumin [Mass/Vol] 4.0 g/dL Normal 3.2-5.5 [facility] Comment on above: Performed By: #### C MP, CBC #### [address] Albumin/Globulin [Mass ratio] 1.6 {ratio} Normal [facility] Comment on above: Performed By: #### C MP, CBC #### [address] ALP [Catalytic activity/Vol] 107 U/L High 32-92 [facility] Comment on above: Result Comment: PERF ORMED BY: [place] [address] PATHOLOGIST TYPING SECRETARY TOSHIA GILLIS M.D. Performed By: #### C MP, CBC #### [address] ALT [Catalytic activity/Vol] 22 U/L Normal 10-60 [facility] Comment on above: Performed By: #### C MP, CBC #### [address] AST [Catalytic activity/Vol] 23 U/L Normal 10-42 [facility] Comment on above: Performed By: #### C MP, CBC #### [address] Bilirubin [Mass/Vol] 0.7 mg/dL Normal 0.3-1.2 [facility] Comment on above: Performed By: #### C MP, CBC #### [facility] [address] Calcium [Mass/Vol] 9.7 mg/dL Normal 8.2-10.2 [facility] Comment on above: Performed By: #### C MP, CBC #### [facility] [address] Chloride [Moles/Vol] 101 mmol/L Normal 95-114 [facility] Comment on above: Performed By: #### C MP, CBC #### [address] CO2 [Moles/Vol] 25.1 mmol/L Normal 22.0-30.0 [facility] Comment on above: Performed By: #### C MP, CBC #### [address] Creatinine [Mass/Vol] 0.97 mg/dL Normal 0.44-1.03 [facility] Comment on above: Performed By: #### C MP, CBC #### [address] Estimated GFR ( Almita > 60 Normal [facility] Comment on above: Result Comment: GFR estimated reference range: According to KDOQI guidelines, <60 ml/min/1.73m2 is sufficient to diagnose a patient with chronic kidney disease. Performed By: #### C MP, CBC #### [place] [address] [place] Estimated GFR (Non- Am 59 Normal [facility] Comment on above: Performed By: #### C MP, CBC #### [place] [address] [place] Globulin (S) [Mass/Vol] 2.5 g/dL Normal [facility] Comment on above: Performed By: #### C MP, CBC #### [place] [address] [place] Glucose [Mass/Vol] 80 mg/dL Normal 70-100 [facility] Comment on above: Result Comment: [place] Glucose Reference Range is dependent on time and content of last meal. Glucose of more than 200 mg/dL in a nonstressed, ambulatory subject supports the diagnosis of Diabetes Mellitus. ADA recommended reference range Performed By: #### C MP, CBC #### [facility] [address] [id number] [place] Potassium [Moles/Vol] 5.1 mmol/L Normal 3.5-5.1 [facility] Comment on above: Performed By: #### C MP, CBC #### [facility] [address] [place] [address] [place] Protein [Mass/Vol] 6.5 g/dL Normal 6.1-7.9 [facility] Comment on above: Performed By: #### C MP, CBC #### [facility] [address] [id number] [place] Sodium [Moles/Vol] 136 mmol/L Normal 136-146 [facility] Comment on above: Performed By: #### C MP, CBC #### [facility] [address] [place] [address] [place] Urea nitrogen [Mass/Vol] 15 mg/dL Normal 9-23 [facility] Comment on above: Performed By: #### C MP, CBC #### [facility] [address] [id number] [place] ECG 12 lead ECGon 06-06-2020 ECG 12 lead ECG [facility] [place] [address] [place] [address] Electrocardiograph Report Signed Patient: Angelique Melo MR#: [id number] : 1965 Acct:[id number] Age/Sex: 54 / F ADM Date: 06/06/20 Loc: PS Room: Type: [facility] Attending Dr: Sesar Gutiérrez MD Ordering Provider: Sesar Gutiérrez MD Date of Service: 06/06/20 ECG/ECG 12 lead ECG: RT KNEE ARTHROSCOPY, MEDIAL AND LATERAL MENISCECTOMY Copies to: Test Reason : Blood Pressure : / mmHG Vent. Rate : 071 BPM Atrial Rate : 071 BPM P-R Int : 142 ms QRS Dur : 094 ms QT Int : 394 ms P-R-T Axes : 045 043 050 degrees QTc Int : 428 ms Normal sinus rhythm Normal ECG No previous ECGs available Confirmed by GALA JOHN DO, FACC ([id number] on 06/06/2020 3:07:09 PM Referred By: JUSTIN Electronically Signed By:GALA JOHN DO, FACC Transcribed By: THOMAS Dictated By: Gala John DO 06/06/20914 Signed By: 06/06/20 1507 Normal [facility] Estimated glomerular filtrat ion rate (GFR) non- Americanon 06-06-2020 GFR/1.73 sq M predicted among non-blacks MDRD (S/P/Bld) [Vol rate/Area] 59 mL/min/{1.73_m2} [facility] Hematocrit [Volume Fraction] of Blood by Automated counton 06-06-2020 Hematocrit (Bld) [Volume fraction] 43.8 % 34.0-46.4 [facility] Otheron 06-06-2020 GFR/1.73 sq M.predicted MDRD (S/P/Bld) [Vol rate/Area] mL/min/{1.73_m2} [facility] Comment on above: GFR estimated refere nce range: According to KDOQI guidelines, <60 ml/min/1.73m2 is sufficient to diagnose a patient with chronic kidney disease. Nucleated RBC/100 WBC (Bld) [Ratio] 0.0 % 0-0.5 [facility] Creatinine Clearance (Chem N/A [facility] Protein [Mass/volume] in Ser um or Plasmaon 06-06-2020 Protein [Mass/Vol] 6.5 g/dL 6.1-7.9 [facility] Serum globulin measurement b y calculation (mass/volume)on 06-06-2020 Globulin (S) [Mass/Vol] 2.5 g/dL [facility] Serum or plasma alanine berry otransferase measurement without P-5'-P (enzymatic activion 06-06-2020 ALT No additional P-5'-P [Catalytic activity/Vol] 22 U/L 10-60 [facility] Serum or plasma albumin/glob ulin mass ratioon 06-06-2020 Albumin/Globulin [Mass ratio] 1.6 {ratio} [facility] Serum or plasma alkaline anju sphatase measurement (enzymatic activity/volume)on 06-06-2020 ALP [Catalytic activity/Vol] 107 U/L 32-92 [facility] Serum or plasma aspartate am inotransferase measurement (enzymatic activity/volume)on 06-06-2020 AST [Catalytic activity/Vol] 23 U/L 10-42 [facility] Serum or plasma calcium sammi urement (mass/volume)on 06-06-2020 Calcium [Mass/Vol] 9.7 mg/dL 8.2-10.2 [facility] Serum or plasma chloride joi surement (moles/volume)on 06-06-2020 Chloride [Moles/Vol] 101 mmol/L 95-114 [facility] Serum or plasma creatinine m easurement with calculation of estimated glomerular filtron 06-06-2020 Creatinine [Mass/Vol] 0.97 mg/dL 0.44-1.03 [facility] Serum or plasma glucose sammi urement (mass/volume)on 06-06-2020 Glucose [Mass/Vol] 80 mg/dL 70-100 [facility] Comment on above: ADA recommended refe rence rangeRandom Glucose Reference Range is dependent on time and content of last meal. Glucose of more than 200 mg/dL in a nonstressed, ambulatory subject supports the diagnosis of Diabetes Mellitus. Serum or plasma potassium me asurement (moles/volume)on 06-06-2020 Potassium [Moles/Vol] 5.1 mmol/L 3.5-5.1 [facility] Serum or plasma sodium measu rement (moles/volume)on 06-06-2020 Sodium [Moles/Vol] 136 mmol/L 136-146 [facility] Serum or plasma total biliru bin measurement (mass/volume)on 06-06-2020 Bilirubin [Mass/Vol] 0.7 mg/dL 0.3-1.2 [facility] Serum or plasma total carbon dioxide measurement (moles/volume)on 06-06-2020 CO2 [Moles/Vol] 25.1 mmol/L 22.0-30.0 [facility] Serum or plasma urea nitroge n measurement (mass/volume)on 06-06-2020 Urea nitrogen [Mass/Vol] 15 mg/dL 12-18 [facility] MRI KNEE RIGHT WO CONTRASTon 05-09-2020 MRI KNEE RIGHT WO CONTRAST EXAMINATION: MRI OF THE RIGHT KNEE WITHOUT CONTRAST, 05/08/2020 2:59 pm TECHNIQUE: Multiplanar multisequence MRI of the right knee was performed without the administration of intravenous contrast. COMPARISON: None. HISTORY: ORDERING SYSTEM PROVIDED HISTORY: Right knee pain, unspecified chronicity TECHNOLOGIST PROVIDED HISTORY: Reason for Exam: Right knee pain, unspecified chronicity Acuity: Acute Type of Exam: Unknown Additional signs and symptoms: Pt c/o posterior right knee pain with locking, stiffness, and weakness x 4 months; no known injury Relevant Medical/Surgical History: no surgery to area of interest FINDINGS: MENISCI: There is branching foci of increased signal intensity seen within the posterior horn of the medial meniscus, reflecting multidirectional tearing. There is horizontally oriented increased signal intensity seen within the posterior horn and body of the lateral meniscus, reflecting horizontal tearing. CRUCIATE LIGAMENTS: The cruciate ligaments appear intact. EXTENSOR MECHANISM: The quadriceps tendon appears intact. There are foci of increased signal intensity seen within the patellar tendon, favored to reflect artifact. LATERAL COLLATERAL LIGAMENT COMPLEX: The lateral collateral ligament proper, distal aspects of the IT band and the biceps femoris tendon appear intact. MEDIAL COLLATERAL LIGAMENT COMPLEX: The medial collateral ligament appears intact. KNEE JOINT: No significant joint effusion is seen. No discrete fluid-filled cartilage defect is seen. BONE MARROW: No evidence of acute fracture, dislocation or avascular necrosis is seen. IMPRESSION: Complex tear of the posterior horn of the medial meniscus. Horizontal tear of the posterior horn and body of the lateral meniscus. Interpreted by: Rogerio Mathis Signed by: Rogerio Mathis 05/09/20 Final result Normal [facility] Complex tear of the posterior horn of the medial meniscus. Horizontal tear of the posterior horn and body of the lateral meniscus. [facility] [employer] Work Phone: EXAMINATION: MRI OF THE RIGHT KNEE WITHOUT CONTRAST, 05/08/2020 2:59 pm TECHNIQUE: Multiplanar multisequence MRI of the right knee was performed without the administration of intravenous contrast. COMPARISON: None. HISTORY: ORDERING SYSTEM PROVIDED HISTORY: Right knee pain, unspecified chronicity TECHNOLOGIST PROVIDED HISTORY: Reason for Exam: Right knee pain, unspecified chronicity Acuity: Acute Type of Exam: Unknown Additional signs and symptoms: Pt c/o posterior right knee pain with locking, stiffness, and weakness x 4 months; no known injury Relevant Medical/Surgical History: no surgery to area of interest FINDINGS: MENISCI: There is branching foci of increased signal intensity seen within the posterior horn of the medial meniscus, reflecting multidirectional tearing. There is horizontally oriented increased signal intensity seen within the posterior horn and body of the lateral meniscus, reflecting horizontal tearing. CRUCIATE LIGAMENTS: The cruciate ligaments appear intact. EXTENSOR MECHANISM: The quadriceps tendon appears intact. There are foci of increased signal intensity seen within the patellar tendon, favored to reflect artifact. LATERAL COLLATERAL LIGAMENT COMPLEX: The lateral collateral ligament proper, distal aspects of the IT band and the biceps femoris tendon appear intact. MEDIAL COLLATERAL LIGAMENT COMPLEX: The medial collateral ligament appears intact. KNEE JOINT: No significant joint effusion is seen. No discrete fluid-filled cartilage defect is seen. BONE MARROW: No evidence of acute fracture, dislocation or avascular necrosis is seen. [employer] Phone: [place], [employer] Incoming R adiant Results From [employer] - 05/09/2020 9:03 PM EST EXAMINATION: MRI OF THE RIGHT KNEE WITHOUT CONTRAST, 05/08/2020 2:59 pm TECHNIQUE: Multiplanar multisequence MRI of the right knee was performed without the administration of intravenous contrast. COMPARISON: None. HISTORY: ORDERING SYSTEM PROVIDED HISTORY: Right knee pain, unspecified chronicity TECHNOLOGIST PROVIDED HISTORY: Reason for Exam: Right knee pain, unspecified chronicity Acuity: Acute Type of Exam: Unknown Additional signs and symptoms: Pt c/o posterior right knee pain with locking, stiffness, and weakness x 4 months; no known injury Relevant Medical/Surgical History: no surgery to area of interest FINDINGS: MENISCI: There is branching foci of increased signal intensity seen within the posterior horn of the medial meniscus, reflecting multidirectional tearing. There is horizontally oriented increased signal intensity seen within the posterior horn and body of the lateral meniscus, reflecting horizontal tearing. CRUCIATE LIGAMENTS: The cruciate ligaments appear intact. EXTENSOR MECHANISM: The quadriceps tendon appears intact. There are foci of increased signal intensity seen within the patellar tendon, favored to reflect artifact. LATERAL COLLATERAL LIGAMENT COMPLEX: The lateral collateral ligament proper, distal aspects of the IT band and the biceps femoris tendon appear intact. MEDIAL COLLATERAL LIGAMENT COMPLEX: The medial collateral ligament appears intact. KNEE JOINT: No significant joint effusion is seen. No discrete fluid-filled cartilage defect is seen. BONE MARROW: No evidence of acute fracture, dislocation or avascular necrosis is seen. IMPRESSION: Complex tear of the posterior horn of the medial meniscus. Horizontal tear of the posterior horn and body of the lateral meniscus. [employer] Phone: Coding Summary.on 03-29-2018 Coding Summary. CODING DATE: 019 [facility] STATUS: Home (Routine DC) PAYOR: [employer] APC DESCRIPTION 5312 Level 2 Lower GI Procedures ADMIT DX: REASON FOR VISIT DX: R19.5 Other fecal abnormalities FINAL DX: PRINCIPAL: D12.5 Benign neoplasm of sigmoid colon SECONDARY: E78.00 Pure hypercholesterolemia, unspecified F32.9 Major depressive disorder, single episode, unspecified F17.200 Nicotine dependence, unspecified, uncomplicated PYMT PROC APC STAT DESCRIPTION DOCTOR NAME DATE 63976 5312 T Colonoscopy, flexible; Gala DESOUZA MD 03/20/2018 with removal of tumor(s), polyp(s), or other lesion(s) by snare technique 71014 Anesthesia for lower Ben Deal JR, DO 03/20/2018 intestinal endoscopic procedures, endoscope introduced distal to duodenum; not otherwise specified NOTE: The code number assigned matches the documented diagnosis and / or procedure in the patient's chart. However, the narrative phrase printed from the coding software may appear abbreviated, or result in slightly different terminology. Revised Coded By: Nhung Stokes Revised Date Saved: 03/29/2018 03:[address] [facility] Main OR Intraoperative Recor don 03-22-2018 Main OR Intraoperative Record IntraOp Document Type FT Summary Primary Physician: Gala DESOUZA MD Finalized Date/Time: 03/22/18 14:43:28 Pt. Name: ANGELIQUE MELO./Sex: 1965 Female Med Rec #: [id number] Physician: Gala DESOUZA MD Financial #: [id number] Pt. Type: O Room/Bed: / Admit/Disch: 03/20/18 07:54:36 - 03/20/18 23:59:59 Institution: Case Times FT Entry 1 Patient Times In Room 03/20/18 09:05:00 Out Room 03/20/18 09:29:00 Procedure Times Start 03/20/18 09:09:00 Stop 03/20/18 09:24:00 Anesthesia Times Start 03/20/18 09:05:00 Stop 03/20/18 09:29:00 Time at [place] 03/20/18 09:18:00 Last Modified By: Lisseth Sellers CST 03/20/18 09:29:35 General Comments: 03/22/18 Chart opened to review and send charges Sixto Sellers JINRIKSHA DRIVER Case Attendance FT Entry 1 Entry 2 Entry 3 Case Attendee Elma Duffy MD, Gala Bautista RN, Zelda Role Performed Anesthesiologist Surgeon - Primary Hoop Maker Helper Machine - Primary Voice Writing Reporter Time In 03/20/18 09:05:00 03/20/18 09:05:00 03/20/18 09:05:00 Time Out 03/20/18 09:29:00 03/20/18 09:29:00 03/20/18 09:29:00 Procedure COLONOSCOPY(.) COLONOSCOPY(.) COLONOSCOPY(.) Comments supervising Last Modified By: Michele RN, Zelda Bautista RN, Zelda Bautista RN, Zelda 03/20/18 09:29:46 03/20/18 09:29:46 03/20/18 09:29:46 Entry 4 Entry 5 Case Attendee Samara Blanco Surry Hydraulic MechanicWinnie Role Performed Scrub - Other Scrub - Primary Time In 03/20/18 09:11:00 03/20/18 09:05:00 Time Out 03/20/18 09:29:00 03/20/18 09:29:00 Procedure COLONOSCOPY(.) COLONOSCOPY(.) Comments help in room Last Modified By: Michele RN, Zelda Bautista RN, Zelda 03/20/18 09:29:46 03/20/18 09:29:46 Perioperative Protocols FT Pre-Care Text: Implements protective measures prior to operative or invasive procedure, confirms identity before the operative or invasive procedure, verifies operative procedure, surgical site, and laterality Entry 1 Procedure(s) COLONOSCOPY(.) Patient Identity Birthday, ID Band Verified (select at Check, Patient least 2): Participation Consents / H and P Anesthesia Consent, Operative Site N/A Verified HandP, Surgery/Procedure Marking Verified Consent Surgical Site Yes Laterality Verified n/a Verified Procedure Verified Yes Correct Patient Yes Position Verified Availability Equipment, Medication Prep Dry n/a Verified (If Applicable) PreOp Antibiotic No Time Out Elma Duffy, Given Participants Gala DESOUZA MD, Workman RN, Zelda [facility] Time Out Complete 03/20/18 09:07:00 Outcomes Met? Yes Last Modified By: Zelda Bautista RN 03/20/18 09:08:13 Post-Care Text: The patient is free from signs and symptoms of injury caused by extraneous objects Allergy Information FT Pre-Care Text: Verifies allergies Entry 1 Allergies Reviewed? Yes Allergies Reviewed Self/Patient With Outcomes Met? Yes Last Modified By: Zelda Bautista RN 03/20/18 06:47:53 Post-Care Text: The patient received appropriate medication(s) safely administered during the perioperative period Surgical Procedures FT Entry 1 Procedure Description Procedure COLONOSCOPY Modifiers . Surgeon Description COLONOSCOPY with distal sigmoid colon polypectomy. Primary Procedure Yes Primary Surgeon Gala DESOUZA MD Start 03/20/18 09:09:00 Stop 03/20/18 09:24:00 Anesthesia Type General Surgical Service General Wound Class 2 - Clean-Contaminated Last Modified By: Zelda Bautista RN 03/20/18 09:24:52 General Case Data FT Pre-Care Text: Classifies surgical wound, implements aseptic technique, initiates traffic control Entry 1 Case Information OR ENDO 1 FT Case Level Level 2 Wound Class 2 - Clean-Contaminated Specialty General ASA Class 2 Preop Diagnosis BLOOD IN STOOL Postop Same As Preop No Postop Diagnosis Distal sigmoid colon Outcomes Met? Yes polyp x1 Last Modified By: Zelda Bautista RN 03/20/18 09:22:21 Post-Care Text: The patient is free from signs and symptoms of infection Skin Assessment (Pre Procedure) FT Pre-Care Text: Implements protective measures to prevent skin/ tissue injury due to thermal or mechanical sources Evaluates for signs and symptoms of physical injury to skin and tissue Entry 1 Skin Integrity Intact, [place], Warm, and Skin Abnormality No Dry Outcomes Met? Yes Last Modified By: Zelda Bautista RN 03/20/18 06:48:24 Post-Care Text: The patient is free from signs and symptoms of injury caused by extraneous objects Patient Positioning FT Pre-Care Text: Identifies physical alterations that require additional precautions for procedure-specific positioning, verifies presence of prosthetics or corrective devices, positions the patient, evaluates the patient for signs and symptoms of injury as a result of positioning Entry 1 Procedure COLONOSCOPY(.) Body Position Lateral, right side up Feet Uncrossed? Yes Left Arm Position Resting at Side Right Arm Position Resting at Side Left Leg Position Extended Right Leg Position Extended Positioning Device Safety Strap, Pillow Under Head Large Press Points Checked Yes By Zelda Bautista RN Outcomes Met? Yes Last Modified By: Zelda Bautista RN 03/20/18 06:48:31 Post-Care Text: The patient is free from signs and symptoms of injury related to positioning Patient Care Devices FT Pre-Care Text: Implements protective measures to prevent skin/ tissue injury due to thermal or mechanical sources Entry 1 Entry 2 Equipment Type ENDOSCOPY VIDEO MONITOR CHARGE SURGERY SYSTEM[F] [F] Equipment Number [id number] Equipment Setting Outcomes Met? Yes Yes Last Modified By: Zelda Bautista RN, RN, Angela 03/20/18 06:48:44 03/20/18 06:48:44 Post-Care Text: The patient is free from signs and symptoms of injury caused by extraneous objects Transport To [facility] Pre-Care Text: Transports according to individual needs. Evaluates for signs and symptoms of skin and tissue injury as a result of transfer or transport Entry 1 Via Cart By Zelda Bautista RN Safety Precautions Side Rails Up Outcomes Met? Yes Last Modified By: Zelda Bautista RN 03/20/18 06:48:50 Post-Care Text: The patient is free from signs and symptoms of injury related to transfer/transport Departure From OR Pre-Care Text: Transports according to individual needs. Evaluates for signs and symptoms of skin and tissue injury as a result of transfer or transport. Entry 1 Via Cart Safety Precautions Safety Strap, Side Rails Up PostOp Destination PACU Transported By Zelda Bautista RN Patient Status Stable Skin. Condition Intact, [place], Warm, and Dry Airway Maintenance Oxygen in Use? No Airway Device N/A Outcomes Met? Yes Last Modified By: Zelda Bautista RN 03/20/18 06:49:43 Post-Care Text: The patient is free from signs and symptoms of injury related to transfer/transport General Comments: REPORT GIVEN TO SAMPLE PREP TECHNICIAN / AW health and safety consultant Administration FT Pre-Care Text: Verifies allergies, administers prescribed medications and solutions, administers prescribed antibiotic therapy and immunizing agents as ordered, evaluates response to medications Administers prescribed medications and solutions Entry 1 Expiration Date Yes Outcomes Met? Yes Verified Last Modified By: Zelda Bautista RN 03/20/18 06:49:20 Post-Care Text: The patient received appropriate medication(s) safely administered during the perioperative period For [facility] please see scanned medication reconcilliation form for medications used at the field during the procedure. Cultures and Specimens FT Pre-Care Text: Manages specimen handling and disposition Manages culture specimen collection Entry 1 Cultures Ordered n/a Specimens Ordered Yes Specimen Disposition Designated OR Area Frozen Section Times Outcomes Met? Yes Last Modified By: Zelda Bautista RN 03/20/18 09:22:39 Post-Care Text: The patient is free from signs and symptoms of injury caused by extraneous objects The patient is free from signs and symptoms of infection Case Comments Finalized By: Lisseth Sellers CST Document Signatures Signed By: Zelda Bautista RN 03/20/18 09:30 Lisseth Sellers CST 03/22/18 14:43 [facility] Inpatient Patient Summaryon 03-20-2018 [facility] Inst[facility] INFORMATION Name: ANGELIQUE MELO PHYSICIANS Admitting Physician: Gala DESOUZA MD Physician: Gala DESOUZA MD PCP: Cruzito Thomason MD Diagnosis: Colon polyp Comment: PATIENT EDUCATION INFORMATIONInstructions:Colon oscopy, Care After Surgery Salam (CUSTOM); Colon PolypsMedication Leaflets:Follow up:With: Address: When: [place] [employer] [place] [address] Business (1) Within 5 to 7 days Comments: Call for any problems. Call for followup appointment MEDICATION LISTComment: Normal [facility] Main OR PACU I Recordon 02-26 Main OR PACU I Record PACU Phase I Document Type FT Summary Primary Physician: Gala DESOUZA MD Finalized Date/Time: 03/20/18 10:19:08 Pt. Name: ANGELIQUE MELO Bernie/Sex: 1965 Female Med Rec #: [id number] Physician: Gala DESOUZA MD Financial #: [id number] Pt. Type: O Room/Bed: / Admit/Disch: 03/20/18 07:54:36 - Institution: Case Times PACU I FT Pre-Care Text: Identifies barriers to communication and implements measures to provide psychological support Develops individualized plan of care, and ensures continuity of care Maintains patient's dignity and privacy, and maintains patient confidentiality Identifies and reports philosophical, cultural, and spiritual beliefs and values Identifies individual values and wishes concerning care Implements aseptic technique, and administers prescribed antibiotic therapy and immunizing agents as ordered Evaluates postoperative tissue perfusion Implements thermoregulation measures, and monitors body temperature Evaluates postoperative respiratory status Evaluates postoperative cardiac status Evaluates postoperative neurological status Assesses pain control, collaborated in initiating patient-controlled analgesia and implements alternative methods of pain control Verifies allergies, administers prescribed medications and solutions, evaluates response to medications Entry 1 In PACU I 03/20/18 09:30:00 Discharge from PACU 03/20/18 10:00:00 I Outcomes Met? Yes Last Modified By: Katerin Joe RN 03/20/18 10:18:51 Post-Care Text: The patient demonstrates knowledge of the expected response to the operative or invasive procedure The patient's care is consistent with the individualized perioperative plan of care The patient's right to privacy is maintained The patient's value system, lifestyle, ethnicity, and culture are considered, respected, and incorporated into the perioperative plan of care The patient participates in decisions affecting his or her perioperative plan of care The patient is free from signs and symptoms of infection The patient has wound/tissue perfusion consistent with or improved from baseline levels established preoperatively The patient is at or returning to normothermia at the conclusion of the immediate postoperative period The patient's respiratory function is consistent with or improved from baseline levels established preoperatively The patient's cardiovascular status is consistent with or improved from baseline levels established preoperatively The patient's cardiovascular status is consistent with or improved from baseline levels established preoperatively The patient demonstrates and/or reports adequate pain control throughout the perioperative period The patient received appropriate medication(s), safely administered during the perioperative period Acuity Level PACU I FT Entry 1 Start Time 03/20/18 09:30:00 Stop Time 03/20/18 10:00:00 Acuity Level Acuity Level I Last Modified By: Katerin Joe RN 03/20/18 10:19:04 Finalized By: Katerin Joe RN Document Signatures Signed By: Katerin Joe RN 03/20/18 10:[address] [facility] Main OR Preoperative Recordo n 03-20-2018 Main OR Preoperative Record Holding Area Document Type FT Summary Primary Physician: Gala DESOUZA MD Finalized Date/Time: 03/20/18 08:17:50 Pt. Name: LORIE ANGELIQUEALEA Gibbs/Sex: 1965 Female Med Rec #: [id number] Physician: Gala DESOUZA MD Financial #: [id number] Pt. Type: O Room/Bed: / Admit/Disch: 03/20/18 07:54:36 - Institution: Case Times Holding FT Pre-Care Text: Verifies consent for planned procedure, identifies individual values and wishes concerning care, includes family members in perioperative teaching Secures patient's records' belongings, and valuables, maintains patient's dignity and privacy, and maintains patient confidentiality Entry 1 In Holding 03/20/18 08:10:00 Outcomes Met? Yes Last Modified By: Zelda Bautista RN 03/20/18 08:13:18 Post-Care Text: The patient participates in decisions affecting his or her perioperative plan of care The patient's right to privacy is maintained Surgery Checklist FT Entry 1 Patient Birthday, ID Band Procedure History and Physical, Identification: Check, Patient Verification: Surgical Consent, With Participation Patient NPO after Midnight: Yes Date/Time: 03/20/18 00:00:00 Personal Items: Dentures, Glasses Limitations: vision Complaints of Pain: No Operative Site n/a Marking: Availability Equipment Verified: Does Patient Smoke Yes If Yes to Smoking. vapes daily Cigars or Cigarettes. How much per day? Patient states Yes Comment - Adult spouse postop adult Supervision supervision available Case Cancelled in No Holding Area see comments below for reason Last Modified By: Zelda Bautista RN 03/20/18 08:17:46 General Comments: Pt. states she did vomit once last evening taking the bowel prep but the results have been clear. /AW RN Finalized By: Zelda Bautista RN Document Signatures Signed By: Zelda Bautista RN 03/20/18 08:[address] [facility] Operative Reporton --201 8 Operative Report Date of Surgery: 03/20/2018SURGEON: Gala Desouza M.D.PREOPERATIVE DIAGNOSIS: Positive Cologuard, need for colorectal screeningPOSTOPERATIVE DIAGNOSIS: 4 mm sessile polyp at 18 cm in the distalsigmoidOPERATION: Colonoscopy to cecum with cold snare polypectomy at 18 cmANESTHESIA: Monitored anesthesia careESTIMATED BLOOD LOSS: Less than 1 mLINDICATIONS AND CONSENT: The patient is a 52 year old female with a recentpositive Cologuard test, presents for colorectal screening. Theindications, risks, benefits, alternatives of proceeding with colonoscopywere explained extensively to the patient including risk of bleeding, colonperforation or anesthetic complications. All of her questions wereanswered. Informed consent was obtained.PROCEDURE: The patient was brought to the Operating Room and placed inthe left lateral decubitus position. Monitored anesthesia care wasprovided. Rectal examination was performed which revealed no masses orblood. The scope was inserted at the anal canal under direct visualizationit was advanced. With the aid of abdominal compression it was advanced tothe cecum where cecal markings were clearly identified. The terminal ileumwas intubated and noted to be normal. Upon withdrawal of the scope mucosalsurfaces were carefully examined. There was noted to be a good prep. Therewere no mass, lesions or inflammatory changes. There were rare diverticulanoted including a right-sided diverticulum. At 18 cm in the distal sigmoidcolon there was noted to be a 4 mm sessile polyp that was removed with coldsnare with good hemostasis. The scope was retroflexed in the anal canal.There was noted to be no significant hemorrhoidal disease. The scope wasthen withdrawn. The patient tolerated the procedure well and [facility].Gala Desouza M.D.lkrDictated: 03/20/2018 #[id number]: 03/20/2018 #[id number]: Alex Thomason M.D.Gala Desouza M.D. [facility] Comment on above: Result Comment: Elec trovalerieally Signed By: WILMER HAWKINS, Gala Owen.sydni\Date and Time Signed: 03/20/18 10:23 EST Patient Education - Texton 1 05-21-2017 Patient Education - Text ColonoscopyCare After SurgeryPlease read the instructions outlined below and refer to this sheet in the next few weeks. These discharge instructions provide you with general information on caring for yourself after you leave the hospital. Your doctor may also give you specific instructions. While your treatment has been planned according to the most current medical practices available, unavoidable complications occasionally occur. If you have any problems or questions after discharge, please call your doctor.ACTIVITYYou may resume your regular activity, but move at a slower pace for the next 24 hours.Take frequent rest periods for the next 24 hours.Walking will help get rid of the air and reduce the bloated feeling in your abdomen (belly).No driving for 24 hours (because of the anesthesia (medicine) used during the test).You may shower.Do not sign any important legal documents or operate any machinery for 24 hours (because of the anesthesia used during the test).NUTRITIONDrink plenty of fluids.You may resume your normal diet as instructed by your doctor.Begin with a light meal and progress to your normal diet. Heavy or fried foods are harder to digest and may make you feel nauseated (sick to your stomach).Avoid alcoholic beverages for 24 hours or as instructed.MEDICATIONSYou may resume your normal medications unless your doctor tells you otherwise.WHAT YOU CAN EXPECT TODAYSome feelings of bloating in the abdomen.Passage of more gas than usual.Spotting of blood in your stool or on the toilet paper.FOLLOW-UPYour doctor will discuss the results of your test with you.SEEK IMMEDIATE MEDICAL ATTENTION IF:There is more than a spotting of blood in your stool.There is abdominal distention (your abdomen is swollen).There is vomiting.You have a temperature over 101.5 F.There is abdominal pain or discomfort that is severe or gets worse throughout the day.Family MedicineColon PolypsPolyps are lumps of extra tissue growing inside the body. Polyps can grow in the large intestine (colon). Most colon polyps are noncancerous (benign). However, some colon polyps can become cancerous over time. Polyps that are larger than a pea may be harmful. To be safe, caregivers remove and test all polyps.CAUSESPolyps form when mutations in the genes cause your cells to grow and divide even though no more tissue is needed.RISK FACTORSThere are a number of risk factors that can increase your chances of getting colon polyps. They include:? Being older than 50 years.? Family history of colon polyps or colon cancer.? Long-term colon diseases, such as colitis or Crohn disease.? Being overweight.? Smoking.? Being inactive.? Drinking too much alcohol.SYMPTOMSMost small polyps do not cause symptoms. If symptoms are present, they may include:? Blood in the stool. The stool may look dark red or black.? Constipation or diarrhea that lasts longer than 1 week. DIAGNOSISPeople often do not know they have polyps until their caregiver finds them during a regular checkup. Your caregiver can use 4 tests to check for polyps:? Digital rectal exam. The caregiver wears gloves and feels inside the rectum. This test would find polyps only in the rectum.? Barium enema. The caregiver puts a liquid called barium into your rectum before taking X-rays of your colon. Barium makes your colon look white. Polyps are dark, so they are easy to see in the X-ray pictures.? Sigmoidoscopy. A thin, flexible tube (sigmoidoscope) is placed into your rectum. The sigmoidoscope has a light and tiny camera in it. The caregiver uses the sigmoidoscope to look at the last third of your colon.? Colonoscopy. This test is like sigmoidoscopy, but the caregiver looks at the entire colon. This is the most common method for finding and removing polyps.TREATMENTAny polyps will be removed during a sigmoidoscopy or colonoscopy. The polyps are then tested for cancer.PREVENTIONTo help lower your risk of getting more colon polyps:? Eat plenty of fruits and vegetables. Avoid eating fatty foods. ? Do not smoke. ? Avoid drinking alcohol.? Exercise every day. ? Lose weight if recommended by your caregiver.? Eat plenty of calcium and folate. Foods that are rich in calcium include milk, cheese, and broccoli. Foods that are rich in folate include chickpeas, kidney beans, and spinach.HOME CARE INSTRUCTIONSKeep all follow-up appointments as directed by your caregiver. You may need periodic exams to check for polyps.SEEK MEDICAL CARE IF:You notice bleeding during a bowel movement.Document Released: 12/08/2004 Document Revised: 06/05/2012 Document Reviewed: 05/23/2012ExitCare? Patient Information ?2014 [employer]. This information is not intended to replace advice given to you by your health care provider. Make sure you discuss any questions you have with your health care provider. [facility] Progress Note-Physicianon Protein mass conc Patient: NADER MELO Age: 52 years Sex: Female : 1965 Associated Diagnoses: None Author: Ben Deal JR, DO Postoperative Information Post Operative Note: Post Anesthesia Care Unit. Anesthetic utilized: General, Monitored anesthesia care. Health Status Allergies: Allergic Reactions (Selected)No Known Medication Allergies Current medications: (Selected) Inpatient MedicationsOrderedLactated Ringers IV Mag 1000 mL 1,000 mL: 1,000 mL, IV, 100 mL/hr, Routine, Start date 03/20/18 9:37:00 EST, 10 hour(s), Total volume (mL): 1,000Sodium Chloride 0.9% IV Mag 1000 mL 1,000 mL: 1,000 mL, IV, 20 mL/hr, Routine, Start date 03/20/18 8:08:00 EST, 50 hour(s), Total volume (mL): 1,000Documented MedicationsDocumentedEffexor XR: 75 mg, Oral, Daily, Refills(s) 0, Depressionsimvastatin: 40 mg, Oral, Once a day (at bedtime), Refills(s) 0, High cholesterol Problem list: All ProblemsResolved: Polyp colon / SNOMED CT 1615115672 Physical Examination Intake and Output Denies significant n/v and is tolerating p.o. Vital Signs (last 24 hrs) Last Charted SBP 124 mmHg (MAR 20 09:55)DBP 78 mmHg (MAR 20 09:55)SpO2 99 % (MAR 20 09:55)Height 177.8 cm (MAR 20 08:08)Weight 105.2 kg (MAR 20 08:08)BMI 33.28 kg/m2 (MAR 20 08:08) Pain assessment: Pain Assessment 03/20/2018 09:55 EST Pain Symptoms Self Report No, able to self report Patient Preferred Pain Tool Numeric rating Numeric Pain Scale 0 = No pain . Respiratory: Adequate air exchange with congregational of preoperative function.. Cardiovascular: Cardiovascular function is stable and has returned to preoperative levels.. Neurologic: Pt has returned to preoperative baseline.. Review / Management Condition: Stable. Assessment Anesthetic outcome No anesthetic complications noted. Plan Transfer/ Discharge: Patient can be discharged from PACU when criteria met. Condition good. [facility] Comment on above: Result Comment: Elec tronically Signed By: Ben Deal JR, DO\.br\Date and Time Signed: 03/20/18 10:21 EST Protein mass conc Patient: NADER MELO Age: 52 years Sex: Female : 1965 Associated Diagnoses: None Author: Ben Deal JR, DO Preoperative Information Anesthesia history: Patient History: Pt./ family denies any personal or family hx of problems/difficulties with anesthesia.. Re-eval prior to induction: Inital eval reviewed: No significant interval change, NPO 10 hours, except for GI. prep which ( when administered ), was completed at least 4 hours prior to the procedure.. Anesthesia results Review of Systems Constitutional: See nursing assessment.. Cardiovascular: Cardiac risk assessment performed. Pt. denies any significant change in their cv hx.. Respiratory: Pt. denies any signicant change in their respiratory status.. Neurologic: Pt. denies any acute neurological changes.. Health Status Allergies: Allergic Reactions (Selected)No Known Medication Allergies, Allergies (1) Active ReactionNo Known Medication Allergies None Documented Current medications: (Selected) Inpatient MedicationsOrderedSodium Chloride 0.9% IV Mag 1000 mL 1,000 mL: 1,000 mL, IV, 20 mL/hr, Routine, Start date 03/20/18 8:08:00 EST, 50 hour(s), Total volume (mL): 1,000Documented MedicationsDocumentedEffexor XR: 75 mg, Oral, Daily, Refills(s) 0, Depressionsimvastatin: 40 mg, Oral, Once a day (at bedtime), Refills(s) 0, High cholesterol, Medications (1) ActiveScheduled: (0)Continuous: (1)Sodium Chloride 0.9% 1,000 mL 1,000 mL, IV, 20 mL/hrPRN: (0) Problem list: No problem items selected or recorded., No qualifying data available Histories Past Medical History: No active or resolved past medical history items have been selected or recorded. Family History: No family history items have been selected or recorded. Procedure history: No active procedure history items have been selected or recorded. Social History Social & Psychosocial HabitsNo Data Available. Physical Examination Vital Signs (last 24 hrs) Last Charted SBP 131 mmHg (MAR 20:)DBP 85 mmHg (MAR 20:)SpO2 97 % (MAR 20:)Height 177.8 cm (MAR 20:)Weight 105.2 kg (MAR 20:)BMI 33.28 kg/m2 (MAR 20) Airway: Normal oral/pharyngeal anatomy.. Respiratory: Adequate air exchange.. Cardiovascular: Adequate perfusion and function. Review / Management Results review: No qualifying data available. Plan [place] [employer] Anesthesiologists (ASA) physical status classification: Class II. Anesthetic Preoperative Plan Anesthesia: Monitored anesthesia care and general anesthesia if required.. Anesthetic plan, risks, benefits, and alternatives discussed with the patient and/or family. Pt. and/or family present and agree to proceed as planned.. Discussed the importance of abstaining from tobacco products, and offered counseling if desired.. [facility] Comment on above: Result Comment: Elec tronically Signed By: Ben Deal JR, DO.sydni\Date and Time Signed: 03/20/18 08:25 EST Vital Signs Date Time Vital Sign Value Performing Clinician Facility 12-29-2020 10:150400 Body height 177.8 cm Chhaya Spivey Other [email or web address] Other 12-29-2020 10:15-0400 Body mass index (BMI) [Ratio] 31.56 kg/m2 Chhaya Spivey Other [email or web address] Other 12-29-2020 10:15-0400 Body temperature 98.2 [degF] Chhaya Spivey Other [email or web address] Other 12-29-2020 10:15-0400 Body weight 99.79 kg Chhaya Spivey Other [email or web address] Other 12-29-2020 10:15-0400 SaO2% (BldA) [Mass fraction] 97 % Chhaya Spivey Other [email or web address] Other Encounters Encounter Date Encounter Type Care Provider Facility Start: 12-12-2023 End: 12-12-2023 ambulatory [facility] Start: 12-09-2023 End: 12-09-2023 ambulatory [facility] Start: 12-02-2023 End: 12-02-2023 ambulatory [facility] Start: 11-22-2023 End: 11-22-2023 ambulatory [facility] Start: 11-14-2023 End: 11-14-2023 ambulatory [facility] Start: 11-02-2023 End: 11-02-2023 ambulatory [facility] Start: 10-25-2023 ambulatory [facility] Start: 10-13-2023 End: 10-13-2023 Evaluation and management of inpatient [facility] Start: 10-10-2023 End: 10-12-2023 Evaluation and management of inpatient [facility] Start: 10-05-2023 End: 10-05-2023 ambulatory [facility] Start: 10-02-2023 End: 10-02-2023 ambulatory [facility] Start: 09-30-2023 End: 09-30-2023 ambulatory [facility] Start: 09-26-2023 End: 09-26-2023 [facility] Start: 09-26-2023 Encounter for other preprocedural examination ALEX THOMASON [facility] Start: 09-19-2023 End: 09-19-2023 ambulatory LEGGETT Lilian [facility] Start: 08-25-2023 End: 08-25-2023 ambulatory ALEX THOMASON [facility] Start: 07-25-2023 End: 07-25-[address] [facility] Start: 07-25-2023 Encounter for other preprocedural examination GIGI [facility] Start: 07-21-2023 End: 07-21-2023 ambulatory ALEX THOMASON [facility] Start: 07-07-2023 End: 07-07-2023 ambulatory [facility] Start: 06-10-2023 End: 06-10-2023 ambulatory GIGI [facility] Start: 05-23-2023 Orders Only Valentin Velarde MD Work Phone: [facility] [place] - Neurophysiology Start: 04-21-2023 End: 04-21-2023 ambulatory ALEX THOMASON [facility] Start: 03-02-2023 Telephone encounter Татьяна Osborn [facility] Comment on above: Post-op Craniotomy Start: 08-02-2022 End: 08-02-[address] ALEX THOMASON . Facility:[facility] Start: 03-26-2022 Encounter for genera l adult medical examination without abnormal findings DR ALEX THOMASON . [facility] Start: 03-24-2022 End: 03-25-[address] ALEX THOMASON . Facility:[facility] Start: 03-24-2022 End: 03-25-2022 Encounter for general adult medical examination without abnormal findings DR ALEX THOMASON . Facility:[facility] Start: 02-22-2022 End: 02-23-[address] ALEX THOMASON . Facility:[facility] Start: 12-29-2020 Office outpatient vi sit 15 minutes [facility] Start: 06-09-2020 End: 06-09-2020 Patient encounter procedure Alex Thomason -Pre-Surgical Testing Start: 06-06-2020 End: 06-06-2020 Patient encounter procedure Alex Thomason -Pre-Surgical Testing Start: 05-08-2020 End: 05-11-2020 Patient encounter procedure ALEX THOMASON [facility] Start: 05-08-2020 End: 05-10-2020 Subsequent hospital visit by physician [facility] Mri Rm [facility] MRI Comment on above: Right knee pain, uns pecified chronicity Start: 03-20-2018 End: 03-21-2018 Patient encounter procedure Gala Desouza Facility:[facility] Procedures Date Procedure Procedure Detail Performing Clinician Start: 07-07-2023 Follow-up visit Follow-up SEBAS GILL Start: 05-08-2020 Mri any jt lower ext rem w/o contrast matrl Alex Thomason Work Phone: Plan of Treatment Date Care Activity Detail Author Start: 03-10-2024 Tobacco Screening Tobacco Screening [facility] Start: 03-07-2024 Adult BMI Screening Adult BMI Screening [facility] Start: 07-21-2023 End: 07-21-2023 Patient encounter procedure 07/21/2023 9:30 AM EDT Appointment [facility] - Neurophysiology [address] [place] [address] [facility] - Neurophysiology Start: 07-07-2023 End: 07-07-2023 [facility] Start: 06-10-2023 End: 06-10-2023 Patient encounter procedure 06/10/2023 10:00 AM EDT Appointment [facility] [address] [place] [id number] [facility] Start: 04-21-2023 End: 04-21-2023 Patient encounter procedure 04/21/2023 9:30 AM EST Appointment [facility] - Neurophysiology [address] [place] [address] [facility] - [facility] Start: 11-26-2022 Influenza vaccination [facility] Vaccine [facility] Start: 11-27-2019 Influenza vaccination Flu vaccine (#1) [employer] Phone: Start: 06-27-2013 Screening for malignant neoplasm of breast Breast cancer screen [employer] Phone: Start: 06-27-2013 Screening for malignant neoplasm of colon Colon cancer screen colonoscopy [employer] Phone: Start: 06-27-2013 Shingles Vaccine (1 of 2) Shingles Vaccine (1 of 2) [employer] Phone: Start: 2003 Lipid panel Lipid screen [employer] Phone: Start: 06-27-1984 Screening for malignant neoplasm of cervix Cervical cancer screen [employer] Phone: Start: 06-27-1982 Administration of varicella zoster vaccine Zoster (Shingles) Vaccine (1 of 2) [facility] Start: 06-27-1982 DTaP,Tdap and Td Vaccines (1 - Tdap) DTaP,Tdap and Td Vaccines (1 - Tdap) [facility] Start: 06-27-1982 DTaP/Tdap/Td vaccine (1 - Tdap) DTaP/Tdap/Td vaccine (1 - Tdap) [employer] Phone: Start: 06-27-1981 Adult BMI Follow Up Plan Adult BMI Follow Up Plan [facility] Start: 06-27-1978 HIV screening HIV screen [employer] Phone: Start: 1975 Depression Screening Depression Screening [facility] Start: 1965 Hepatitis C screening Hepatitis C screen [employer] Phone: Start: 1965 Tobacco Counseling Tobacco Counseling [facility] [employer] [facility] End: 03-12-2024 Botox Injection For Cervical Dystonia Botox Injection For Cervical Dystonia Neurology Routine Every 3 Months for 4 Occurrences starting 05/23/2023 until 03/12/2024 [facility] Work Phone: Comment on above: Every 3 Months for 4 Occurrences startin g 05/23/2023 until 03/12/2024 Payers Date Payer Category Payer Worker's Compensation WORKER'S C OMPENSATION WORKER'S [id number] 2018-Present [id number] [id number] 2018 Unknown 1965 Unknown [id number] 2.16.840.1.170234.3.579.2. 176 1965 Unknown [id number] 2.16.840.1.241261.3.579.2. 593 1965 Unknown [id number] 2.16.840.1.307555.3.579.2. 593 1965 Unknown [id number] 2.16.840.1.092026.3.579.2. 593 1965 Unknown [id number] 2.16.840.1.749907.3.579.2. 727 1965 Unknown [id number] 2.16.840.1.876212.3.579.2. 1286 1965 Unknown [id number] 2.16.840.1.777547.3.579.2. 1286 1963 Unknown [id number] 2.16.840.1.851633.3.579.2. 1286 1965 Unknown [id number] 2.16.840.1.157344.3.579.2. 1286 1963 Unknown [id number] 2.16.840.1.678101.3.579.2. 1286 1963 Unknown [id number] 2.16.840.1.158122.3.579.2. 1286 1965 Unknown [id number] 2.16.840.1.831812.3.579.2. 1285 1963 Unknown [id number] 2.16.840.1.027514.3.579.2. 1285 1963 Unknown [id number] 2.16.840.1.355741.3.579.2. 1285 1963 Unknown [id number] 2.16840.1.433286.3.579.2. 1285 1963 Unknown [id number] 2.840.1.838930.3.579.2. 1285 1963 Unknown [id number] 2.840.1.834366.3.579.2. 1285 1963 Unknown [id number] 2.840.1.922323.3.579.2. 1285 1963 Unknown [id number] 2.840.1.844762.3.579.2. 1285 1963 Unknown [id number] 2.840.1.691782.3.579.2. 1285 1963 Unknown [id number] 2.840.1.364436.3.579.2. 1285 1963 Unknown [id number] 2.840.1.597896.3.579.2. 1285 1963 Unknown [id number] 2.840.1.445203.3.579.2. 1285 1963 Unknown [id number] 2.840.1.846361.3.579.2. 1285 1963 Unknown [id number] 2.840.1.652774.3.579.2. 1285 1963 Unknown [id number] 2.840.1.981390.3.579.2. 1285 1965 Unknown [id number] 2.840.1.386566.3.579.2. 1285 1959 Unknown [id number] Self-pay Self Pay [id number] Social History Date Type Detail Facility Tobacco smoking stat us NJIS Unknown if ever smoked [employer] Phone: Start: 1965 Sex Assigned At Not on file [facility] [place] Work Phone: Exposure to SARS-CoV -2 (event) Not sure [employer] Work Phone: Start: 06-06-2020 End: 06-06-2020 Tobacco smoking status NHIS Smoker (finding) [facility] Start: 1965 Sex Assigned At Female F [facility] Start: 05-08-2020 End: 03-10-2023 [facility] Start: 02-24-2023 [facility] History of tobacco use Cigarette Smoker P [facility] Start: 02-24-2023 Tobacco use and exposure User of smokeless tobacco [facility] Start: 02-24-2023 End: 03-10-2023 Alcohol intake Current drinker of alcohol (finding) [facility] [employer] [facility] Start: 05-08-2020 End: 03-10-2023 History of Social function [facility] Are you worried or concerned that in the next two months you may not have stable housing that you own, rent or stay in as a part of a household? No [facility] Start: 01-12-2019 Alcohol Comment once in a great whil e [facility] [employer] [facility] Medical Equipment Procedure Code Equipment Code Equipment Origin al Text Equipment Identifier Dates Gft Bn Ricardo Cnc 15cc Frzdr - [id number] - [id number] Start: 01-12-2019 Patch Dura 16x10 cm Drgrd Bvn Pricrd Strl Lf - [id number] Start: 12-26-2022 Plt Bn 41mm +20d Oblq L 3 - Sna - [id number] Start: 01-12-2019 Scr Bn Ricardo 2.4m m 16mm Strdrv - Sna - [id number] Start: 01-12-2019 Goals Date Patient Goal Desired Activity /State Clinical Notes 12-29-2020 to 03-02-2023 Telephone Encounter - Татьяна Osborn - 03/02/2023 8:45 AM ESTTelephone Encounter - Grazyna Chamberlain RN - 03/02/2023 8:45 AM ESTTelephone Encounter - Shreya Chavez CMA - 03/02/2023 8:45 AM EST Note Date & Type Note Facility 03-02-2023 Miscellaneous Notes Formattin g of this note might be different from the original. Received call today 03/02/23 8:46 from Abi at [facility] who stated that patient had craniotomy a couple months ago and she's noticed in the last few days that it is more swollen. She wanted to know if this was measured after she had the procedure and is requesting call back for medical advice. Please call back and advise, direct callback#: [phone]. Will need to call neurosurgery. Called Abi and informed her that if it is about surgery site, she should call neurosurgery and provided the number for it. She voiced understanding. Daysi with Transportation is asking for the appointment (05/05/2023) with stroke to rescheduled on same day with the patients appointment (06/09/2023) with neurosurgery. Also, she is asking for the appointment to be schedule after the CT scan that is scheduled on 06/10/2023. Human Factors Engineer did inform her that neurosurgery was not in our office, she asked to clinical staff to make arrangements with neurosurgery. Please advise Daysi contacted our office back stating that both appts (neurology and neurosurgery) need to be moved to after the appt for her CT scan which is on 06/10/2023. She was transferred to Neurosurgery to reschedule that appt and once that appt is rescheduled we could possibly reschedule our appt to the same day. Please advise. Human Factors Engineer received a call from Daysi with [facility]. Daysi is asking if appointment that is scheduled for 05/05/2023 at 9:30 could please be scheduled on the same day with Neurosurgery appointment. Appointment with Neurosurgery is 06/14/2023 at 2:30pm. Daysi is requesting appointment to either before 2:30pm or after, as long as it is on the same day. Please Advise. Daysi is requesting a call back [phone] to further discuss. Thank you so much Called facility back and it rang until it changed to busy tone Called transportation back and no answer This patient follows care under the fellows and they are only here on afternoons. Called [facility] Lashaun answered they're trying to make the appts on the same day so that its easier on the patient. She is going to talk to Dr Hutchinson office and see if they have something they may correlate on a Received call today 04/07/23 1:43 from Tere at [facility] who is requesting a call back in regard to previous message. She said that she got some dates/times from the other provider's office. Please call back and advise, callback#: [phone]. Spoke with Lashaun and correlated Dr Hutchinson appt on the same day as ours documented in this encounter [facility] 03-02-2023 Telephone encount er Note Received call today 03/02/23 8:46 from Abi at [facility] who stated that patient had craniotomy a couple months ago and she's noticed in the last few days that it is more swollen. She wanted to know if this was measured after she had the procedure and is requesting call back for medical advice. Please call back and advise, direct callback#: [phone]. [facility] 03-02-2023 Telephone encount er Note Will need to call neurosurgery. [facility] 03-02-2023 Telephone encount er Note Called Abi and informed her that if it is about surgery site, she should call neurosurgery and provided the number for it. She voiced understanding. [facility] 03-02-2023 Telephone encount er Note Daysi with Transportation is asking for the appointment (05/05/2023) with stroke to rescheduled on same day with the patients appointment (06/09/2023) with neurosurgery. Also, she is asking for the appointment to be schedule after the CT scan that is scheduled on 06/10/2023. Human Factors Engineer did inform her that neurosurgery was not in our office, she asked to clinical staff to make arrangements with neurosurgery. Please advise [facility] 03-02-2023 Telephone encount er Note Daysi contacted our office back stating that both appts (neurology and neurosurgery) need to be moved to after the appt for her CT scan which is on 06/10/2023. She was transferred to Neurosurgery to reschedule that appt and once that appt is rescheduled we could possibly reschedule our appt to the same day. Please advise. [facility] 03-02-2023 Telephone encount er Note Human Factors Engineer received a call from Daysi with [facility]. Daysi is asking if appointment that is scheduled for 05/05/2023 at 9:30 could please be scheduled on the same day with Neurosurgery appointment. Appointment with Neurosurgery is 06/14/2023 at 2:30pm. Daysi is requesting appointment to either before 2:30pm or after, as long as it is on the same day. Please Advise. Daysi is requesting a call back [phone] to further discuss. Thank you so much [facility] [employer] 03-02-2023 Telephone encount er Note Called facility back and it rang until it changed to busy tone Called transportation back and no answer This patient follows care under the fellows and they are only here on afternoons. [facility] [employer] [facility] 03-02-2023 Telephone encount er Note Called facility Lashaun answered they're trying to make the appts on the same day so that its easier on the patient. She is going to talk to Dr Hutchinson office and see if they have something they may correlate on a [facility] [employer] [facility] 03-02-2023 Telephone encount er Note Received call today 04/07/23 1:43 from Tere at [facility] and [facility] who is requesting a call back in regard to previous message. She said that she got some dates/times from the other provider's office. Please call back and advise, callback#: [phone]. [facility] 03-02-2023 Telephone encount er Note Spoke with Lashaun and correlated Dr Hutchinson appt on the same day as ours [facility] 12-29-2020 Evaluation note Encounter Date Diagnosis Assessment Notes Dec, Contact with and (suspected) exposure to other viral communicable diseases (ICD-10 - Z20.828) Today test was performed in office. Results are currently negative. That does not mean that you will not develop COVID or do not currently have a low viral count of COVID. The rapid test works best if symptoms have been over 72 hours and the results can vary if you are asymptomatic There is a higher chance of false negative results to occur if testing is performed too soon. It is recommended that even if results are negative and you have been exposed to someone that has COVID that you follow current CDC recommendations . These can be found at CDC.GOV. Follow up with primary care provider if symptoms persist or do not improve Dec, Other Additional time spent conducting pre-visit phone call, screening for symptoms, instructions on social distancing, application and removal of PPE, and cleaning of examination room, equipment and supplies was preformed. Patient education given for testing methodology and results. Patient care instructions given in writting by [facility] document. [email or web address] Other History general Narrative - Reported* Type Description Date Surgical History carpal tunnel release- bilatera l Surgical History hysterectomy Surgical History ORIF left wrist [email or web address] Other InstructionsNot on filedocumented in this encounter [facility] filedocumented in this encounter [facility] Summary Purpose Family History No Family History Records Found Relationship Condition Age at Onset Recorded Date/T marge Not Specified Cerebrovascular accident (CVA) Unknown Degeneration of intervertebral disc Unkno wn sister Degeneration of intervertebral disc Unkno wn father Hodgkin lymphoma Unknown Advance Directives No Advanced Directives Records Found Advance Directive Response Recorded Date/ Time Advance Directives No June 05 11:39am Advance Directive Response Recorded Date/ Time Advance Directives No June 05 12:39pm Documents on File Type Date Recorded Patient Human Resource Intern Expl anation DNR Physician Order 01/18/2023 4:20 PM Latest Code Status on File Code Status Date Activated Date Inactivated Comments DNR Comfort Care Arrest (DNR-CCA) [place] 12/31/2022 11:45 AM 01/11/2023 7:55 PM Code Status History Code Status Date Activated Date Inactivated Comments Full Code 12/26/2022 4:32 AM 12/31/2022 11:45 AM Documents on File Type Date Recorded Patient Human Resource Intern Expl anation DNR Physician Order 01/18/2023 4:20 PM Latest Code Status on File Code Status Date Activated Date Inactivated Comments DNR Comfort Care Arrest (DNR-CCA) [place] 12/31/2022 11:45 AM 01/11/2023 7:55 PM Code Status History Code Status Date Activated Date Inactivated Comments Full Code 12/26/2022 4:32 AM 12/31/2022 11:45 AM Reason for Referral Status Reason Specialty Diagnoses / Procedures Referre d By Contact Referred To Contact Closed Radiology Diagnoses Right knee pain, unspecified chronicity Procedures MRI KNEE RIGHT WO CONTRAST Alex Thomason MD [facility] [place] [address] Specialty Diagnoses / Procedures Referred By Contac t Referred To Contact Procedures Botox Injection For Cervical Dystonia Valentin Velarde MD [address] [facility], [address] [place] [address] Referral ID Status Reason Start Date Expiration Date V isits Requested Visits Authorized [id number] Pending Review 05/23/2023 05/22/2024 4 4 Assessments Diagnosis Right knee pain, unspecified chronicity Chief Complaint and Reason for Visit Chief Complaint Knee Pain Chief Complaint Knee Pain Knee Pain Additional Source Comments INFORMATION SOURCE (unrecogn ized section and content) DATE CREATED AUTHOR 03/30/2018 [employer] [facility] DATE CREATED AUTHOR AUTHOR'S ORGANIZ ATION 05/12/2020 [facility] DATE CREATED AUTHOR AUTHOR'S ORGANIZ ATION 03/16/2021 [facility] DATE CREATED AUTHOR AUTHOR'S ORGANIZ ATION 08/03/2022 [facility] DATE CREATED AUTHOR AUTHOR'S ORGANIZ ATION 11/05/2023 [facility] DATE CREATED AUTHOR AUTHOR'S ORGANIZ ATION 12/11/2023 [facility] DATE CREATED AUTHOR AUTHOR'S ORGANIZ ATION 12/13/2023 [facility] Reason for Visit (unrecogniz ed section and content) Status Reason Specialty Diagnoses / Procedures Referre d By Contact Referred To Contact Closed Radiology Diagnoses Right knee pain, unspecified chronicity Procedures MRI KNEE RIGHT WO CONTRAST Alex Thomason MD [address] [place] [address] Reason Onset Date Comments Post-op Craniotomy 03/02/2023 Care Teams (unrecognized sec tion and content) Correctional Maintenance Technician Relationship Specialty Start Date End Date Alex Thomason MD [address] [phone] PCP - General Family Medicine 01/22/19 Correctional Maintenance Technician Relationship Specialty Start Date End Date Alex Thomason MD [address] [place] [address] PCP - General Family Medicine 01/22/19 FOR RECORDS PERTAINING TO PATIENTS WHO ARE OR HAVE BEEN ENROLLED IN A CHEMICAL DEPENDENCY/SUBSTANCEABUSE PROGRAM, SOME INFORMATION MAY BE OMITTED. This clinical summary was aggregated from multiple sources. Caution should be exercised in using it in the provision of clinical care. This summary normalizes information from multiple sources, and as a consequence, information in this document may materially change the coding, format and clinical context of patient data. In addition, data may be omitted in some cases. CLINICAL DECISIONS SHOULD BE BASED ON THE PRIMARY CLINICAL RECORDS. [facility] [employer] [facility]. provides no warranty or guarantee of the accuracy or completeness of information in this document.
[2024-01-09 16:32] LABS: Bilirubin Urine NEGATIVE (NEGATIVE); Blood Urine SMALL (NEGATIVE); Clarity Urine SL CLOUDY (CLEAR); Color Urine YELLOW (YELLOW); Glucose Urine UA NEGATIVE (NEGATIVE); Ketones Urine NEGATIVE (NEGATIVE); Leukocyte Esterase Urine SMALL (NEGATIVE); Nitrite Urine NEGATIVE (NEGATIVE); Protein Urine TRACE mg/dL (NEG/TRACE); Specific Gravity Urine >=1.030 (1.005-1.025)
[2024-01-09 16:47] LABS: Bacteria Urine MODERATE #/HPF (NONE SEEN); Crystals Seen? None Seen #/HPF (None Seen); Mucus Urine SMALL (NONE SEEN); RBC Urine NONE SEEN #/HPF (0-2); Squamous Epithelial Cell Urine RARE #/LPF (NONE/RARE)
[2024-01-09 16:48] LABS: Starch Urine RARE
[2024-01-09 16:49] LABS: Urine Culture Indicated ALREADY ORDERED
[2024-01-09 16:57] LABS: Cast Seen? NONE SEEN #/LPF (NONE SEEN)
== END 2024-01-09 16:22 | disposition home or self-care (01) ==
LOC: LAB 16:21
PROVIDERS: PCP Family Medicine; Visit Provider Family Medicine
DX: R30.0 Dysuria (principal)
CPT/HCPCS: 81001; 87086; 87150; 87186

== ENCOUNTER 2024-01-19 07:45 | Outpatient (OUT) | payer OTHER, SELFPAY ==
--- NOTE | 2024-01-19 07:55 | XR_ITS ---
The [address] [address] Patient Name: ROXANNA MELO MRN: [id number] date: 1965 Sex: F Assigned Patient Location: [place] Current Patient Location: [place] Accession/Order Number: [id number] Exam Date: 01/19/2024 08:00 Report Date: 01/19/2024 08:36 At the request of: RAMA PRITCHETT Procedure: XR forearm LT 2V EXAM: XR forearm LT 2V HISTORY: Pre Operative Examination COMPARISON: None. TECHNIQUE: 2 view left forearm series performed. FINDINGS: There is an intact plate and screw device along the dorsal margin of the distal radius. The bony structures are osteopenic. There is no fracture. 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 The wrist is otherwise not adequately evaluated. There is no obvious abnormality of the elbow joint. There is no soft tissue abnormality. XR/XR forearm LT 2V IMPRESSION: There is no acute process. There is an intact plate and screw device along the dorsal margin of the distal radius. Contractures with flexion of the digits and wrist. The wrist is not adequately evaluated. The bony structures are osteopenic. Electronically authenticated by: RUBINA MUNIZ Date: 01/19/2024 08:36
--- NOTE | 2024-01-19 07:55 | US_ITS ---
The [address] [address] Patient Name: ROXANNA MELO MRN: [id number] date: 1965 Sex: F Assigned Patient Location: US Current Patient Location: Accession/Order Number: [id number] Exam Date: 01/19/2024 08:15 Report Date: 01/22/2024 06:24 At the request of: RAMA PRITCHETT Procedure: US thyroid EXAMINATION: US thyroid HISTORY: Thyroid Mass COMPARISON: No relevant comparison available. FINDINGS: RIGHT LOBE: Heterogeneous echotexture and contains a 13 mm and a 10 mm TR 4 nodules within the superior pole. 7 mm TR 3 nodule within inferior pole. Lobe size: 4.9 x 2.6 x 1.6 cm LEFT LOBE: Heterogeneous echotexture and contains several nodules to include a 14 mm TR 4 nodule within the superior pole, a 20 mm TR 5 nodule within mid body, and a 17 mm TR 4 nodule within the inferior pole. Lobe size: 4.5 x 1.8 x 2.4 cm ISTHMUS: Heterogeneous echotexture and contains an 8 mm TR 3 nodule. Thickness: 3 mm US/US thyroid IMPRESSION: 1. Heterogeneous multinodular thyroid gland. The 20 mm TR 5 nodule within the left lobe should be considered for ultrasound-guided biopsy. TR4 (moderately suspicious): If > 1.0 cm, follow-up ultrasound in 1, 2, 3, and 5 years. If > 1.5 cm, fine needle aspiration (FNA). TR3 (mildly suspicious): > 1.5 cm, follow-up ultrasound in 1, 3, and 5 years. > 2.5 cm, fine needle aspiration. Electronically authenticated by: MARGARITA LESLIE Date: 01/22/2024 06:24
--- OUTSIDE RECORDS SUMMARY | 2024-01-19 07:55 | XMS_ITS | CCD ---
Author Organization [facility] Care Team Providers Care Marketing Analytics Manager Name Role Phone Nill, Gala R Unavailable Unavailable Nill, Gala R Unavailable Unavailable Nill, Gala R Unavailable Unavailable Alex Thomason~[phone] UNKNOWN Unavailable Unavailable ALEX THOMASON Referring Unavailable ALEX THOMASON Primary Care Unavailable Alex Thomason Primary Care Provider [phone] Alex Thomason Primary Care Provider Sesar Gutiérrez Attending Provider [phone] Chhaya Spivey Unavailable SHREYAS ., DR ONTIVEROS [...] Unavailable HOY ., DR ONTIVEROS Consulting Unavailable JACKSON, DR FRANCES Del Valle Consulting Unavailable FRANCES NICHOLS Consulting Unavailable Alex Thomason MD Primary Care Provider [phone] ALEX THOMASON Referring Unavailable ALEX THOMASON M [...] Medication Allergies] Propensity to adverse reactions (disorder) [facility] Repository Medications Current Medications Medication Drug [...] 9:50am docusate sodium 50 mg / sennosides, detention 8.6 mg oral tablet (2 sources) take [...] needed. 0 02/02/2023 Active polyethylene glycol 3350 10708 mg powder for oral solution (2 sources) [...] 07-07-2023 Episodic Other aftercare (1 source) Other terminal carman (current) drug therapy; Translations: [[employer]CE[employer] YACHT CURRENT DRUG THERAPY] Onset: 02-27-2022 Episodic Other [...] Cheung MD on 12/06/2023 9:45 AM Normal [facility] CT CTA CHESTon 12-06-2023 CT CTA [...] Art Gale on 12/06/2023 2:35 PM Normal [facility] BASIC METABOLIC PANLon 10-11 Anion gap [Moles/Vol] 7 mmol/L Normal 5-15 [facility] Comment on above: Performed By: #### C BCA, BMP #### [facility] ([id number]) [address], [address] [place] [address] Calcium [Mass/Vol] 8.9 mg/dL Normal 8.5-10.5 [facility] Comment on above: Performed By: #### C BCA, BMP #### [facility] ([id number]) [address], [address] [place] [address] Chloride [Moles/Vol] 105 mmol/L Normal 98-109 [facility] Comment on above: Performed By: #### C MINH, BMP #### [facility] ([id number]) [address], [address] [place] [address] CO2 [Moles/Vol] 27 mmol/L Normal 22-32 [facility] Comment on above: Performed By: #### C BCA, BMP #### [facility] ([id number]) [address], [address] [place] [address] Creatinine [Mass/Vol] 0.50 mg/dL Normal 0.40-1.00 [facility] Comment on above: Result Comment: METH OD TRACEABLE TO IDMS STANDARD Performed By: #### C MINH, BMP #### [facility] ([id number]) [address], [address] [place] [address] eGFR (CKD-EPI) NON-RACE DEPENDENT >90 Normal >59 [facility] Comment on above: Result Comment: Reported eGFR is based on the CKD-EPI 2020 equation that does not use a race coefficient. Performed By: #### C BCA, BMP #### [facility] ([id number]) [address], [address] [place] [address] Glucose [Mass/Vol] 99 mg/dL Normal 65-99 [facility] Comment on above: Performed By: #### C BCA, BMP #### [facility] ([id number]) [address], [address] [place] [address] Potassium [Moles/Vol] 3.6 mmol/L Normal 3.5-5.0 [facility] Comment on above: Performed By: #### C BCA, BMP #### [facility] ([id number]) [address], [address] [place] [address] Sodium [Moles/Vol] 139 mmol/L Normal 134-146 [facility] Comment on above: Performed By: #### C BCA, BMP #### [facility] ([id number]) [address], [address] [place] [address] Urea nitrogen [Mass/Vol] 15 mg/dL Normal 5-23 [facility] Comment on above: Performed By: #### C BCA, BMP #### [facility] ([id number]) [address], [address] [place] [address] CBC AND AUTO DIFFon 10-12-19 Erythrocyte distribution width (RBC) [Ratio] 14.3 % Normal 11.5-15.0 [facility] Comment on above: Performed By: #### C BCA, BMP #### [facility] ([id number]) [address], [address] [place] [address] Hematocrit (Bld) [Volume fraction] 27.9 % Low 35-47 [facility] Comment on above: Performed By: #### C BCA, BMP #### [facility] ([id number]) [address], [address] [place] [address] Hemoglobin (Bld) [Mass/Vol] 9.5 g/dL Low 11.7-15.5 [facility] Comment on above: Performed By: #### C BCA, BMP #### [facility] ([id number]) [address], [facility] [address] [place] [address] Lymphocytes (Bld) [#/Vol] 2.9 10*3/uL Normal 1.0-3.5 [facility] Comment on above: Performed By: #### C BCA, BMP #### [facility] ([id number]) [address], [address] [place] [address] Lymphocytes/100 WBC (Bld) 42.0 % Normal [facility] Comment on above: Performed By: #### C MINH, BMP #### [facility] ([id number]) [address], [address] [place] [address] MCH (RBC) [Entitic mass] 40.3 pg High 27-34 [facility] Comment on above: Performed By: #### C MINH, BMP #### [facility] ([id number]) [address], [address] [place] [address] MCHC (RBC) [Mass/Vol] 34.1 g/dL Normal 32-36 [facility] Comment on above: Performed By: #### C MINH, BMP #### [facility] ([id number]) [address], [address] [place] [address] MCV (RBC) [Entitic vol] 118 fL High 80-100 [facility] Comment on above: Performed By: #### C MINH, BMP #### [facility] ([id number]) [address], [address] [place] [address] Monocytes (Bld) [#/Vol] 0.3 10*3/uL Normal 0-0.9 [facility] Comment on above: Performed By: #### C MINH, BMP #### [facility] ([id number]) [address], [address] [place] [address] Monocytes/100 WBC (Bld) 4.0 % Normal [facility] Comment on above: Performed By: #### C BCA, BMP #### [facility] ([id number]) [address], [address] [place] [address] Neutrophils (Bld) [#/Vol] 3.8 10*3/uL Normal 1.5-6.6 [facility] Comment on above: Performed By: #### C MINH, BMP #### [facility] ([id number]) [address], [address] [place] [address] OVALOCYTE 1+ Abnormal NONE [facility] Comment on above: Performed By: #### C MINH, BMP #### [facility] ([id number]) [address], [address] [place] [address] Platelet mean volume (Bld) [Entitic vol] 8.4 fL Normal 7-12 [facility] Comment on above: Performed By: #### C MINH, BMP #### [facility] ([id number]) [address], [address] [place] [address] Platelets (Bld) [#/Vol] 200 10*3/uL Normal 150-450 [facility] Comment on above: Performed By: #### C MINH, BMP #### [facility] ([id number]) [address], [address] [place] [address] POLYCHROMASIA 1+ Abnormal NONE [facility] Comment on above: Performed By: #### C MINH, BMP #### [facility] ([id number]) [address], [address] [place] [address] RBC COUNT 2.36 X10E12/L Low 3.80-5.20 [facility] Comment on above: Performed By: #### C MINH, BMP #### [facility] ([id number]) [address], [address] [place] [address] SEG NEUTROPHIL 54.0 % Normal [facility] Comment on above: Performed By: #### C MINH, BMP #### [facility] ([id number]) [address], [address] [place] [address] WBC (Bld) [#/Vol] 7.0 10*3/uL Normal 4.0-11.0 [facility] Comment on above: Performed By: #### C MINH, BMP #### [facility] ([id number]) [address], [address] [place] [address] BASIC METABOLIC PANLon 10-10 Anion gap [Moles/Vol] 9 mmol/L Normal 5-15 [facility] Comment on above: Performed By: #### C BC, BMP #### [facility] ([id number]) [address], [address] [place] [address] Calcium [Mass/Vol] 9.0 mg/dL Normal 8.5-10.5 [facility] Comment on above: Performed By: #### C BC, BMP #### [facility] ([id number]) [address], [address] [place] [address] Chloride [Moles/Vol] 105 mmol/L Normal 98-109 [facility] Comment on above: Performed By: #### C BC, BMP #### [facility] ([id number]) [address], [address] [place] [address] CO2 [Moles/Vol] 25 mmol/L Normal 22-32 [facility] Comment on above: Performed By: #### C BC, BMP #### [facility] ([id number]) [address], [address] [place] [address] Creatinine [Mass/Vol] 0.45 mg/dL Normal 0.40-1.00 [facility] Comment on above: Result Comment: METH OD TRACEABLE TO IDMS STANDARD Performed By: #### C BC, BMP #### [facility] ([id number]) [address] [address] [place] [address] eGFR (CKD-EPI) NON-RACE DEPENDENT >90 Normal >59 [facility] Comment on above: Result Comment: Reported eGFR is based on the CKD-EPI 2020 equation that does not use a race coefficient. Performed By: #### C BC, BMP #### [facility] ([id number]) [address] [place] [address] Glucose [Mass/Vol] 127 mg/dL High 65-99 [facility] Comment on above: Performed By: #### C FLAKITO, BMP #### [facility] ([id number]) [address], [address] [place] [address] Potassium [Moles/Vol] 3.6 mmol/L Normal 3.5-5.0 [facility] Comment on above: Performed By: #### C FLAKITO, BMP #### [facility] ([id number]) [address], [address] [place] [address] Sodium [Moles/Vol] 139 mmol/L Normal 134-146 [facility] Comment on above: Performed By: #### Amanda FRAGA, BMP #### [facility] ([id number]) [address], [address] [place] [address] Urea nitrogen [Mass/Vol] 15 mg/dL Normal 5-23 [facility] Comment on above: Performed By: #### Amanda FRAGA, BMP #### [facility] ([id number]) [address], [address] [place] [address] COMPLETE BLOOD COUNTon 10-10 Erythrocyte distribution width (RBC) [Ratio] 14.1 % Normal 11.5-15.0 [facility] Comment on above: Performed By: #### Amanda FRAGA, BMP #### [facility] ([id number]) [address], [address] [place] [address] Hematocrit (Bld) [Volume fraction] 30.6 % Low 35-47 [facility] Comment on above: Performed By: #### C FLAKITO, BMP #### [facility] ([id number]) [address], [address] [place] [address] Hemoglobin (Bld) [Mass/Vol] 10.6 g/dL Low 11.7-15.5 [facility] Comment on above: Performed By: #### C FLAKITO, BMP #### [facility] ([id number]) [address], [address] [place] [address] MCH (RBC) [Entitic mass] 40.5 pg High 27-34 [facility] Comment on above: Performed By: #### Amanda FRAGA, BMP #### [facility] ([id number]) [address], [address] [place] [address] MCHC (RBC) [Mass/Vol] 34.6 g/dL Normal 32-36 [facility] Comment on above: Performed By: #### C FLAKITO, BMP #### [facility] ([id number]) [address], [address] [place] [address] MCV (RBC) [Entitic vol] 117 fL High 80-100 [facility] Comment on above: Performed By: #### Amanda FRAGA, BMP #### [facility] ([id number]) [address], [address] [place] [address] Platelet mean volume (Bld) [Entitic vol] 8.1 fL Normal 7-12 [facility] Comment on above: Performed By: #### Amanda FRAGA, BMP #### [facility] ([id number]) [address], [address] [place] [address] Platelets (Bld) [#/Vol] 220 10*3/uL Normal 150-450 [facility] Comment on above: Performed By: #### Amanda FRAGA, BMP #### [facility] ([id number]) [address], [address] [place] [address] RBC COUNT 2.62 X10E12/L Low 3.80-5.20 [facility] Comment on above: Performed By: #### Amanda FRAGA, BMP #### [facility] ([id number]) [address], [address] [place] [address] WBC (Bld) [#/Vol] 5.3 10*3/uL Normal 4.0-11.0 [facility] Comment on above: Performed By: #### C BC, BMP #### [facility] ([id number]) [address] [facility], [address] [place] [address] CT BRAIN WO CONTon CT BRAIN WO [...] Jeffers MD on 10/11/2023 2:29 AM Normal [facility] Glucose Glucometer (BldC) [M ass/Vol]on 10-10-2023 Glucose [Mass/Vol] 133 mg/dL High 65-99 [facility] BASIC METABOLIC PANLon 10-04 Anion gap [Moles/Vol] 8 mmol/L Normal 5-15 [facility] Comment on above: Performed By: #### U A #### ([id number]) [address] [place] [address], [place] [address] Calcium [Mass/Vol] 9.8 mg/dL Normal 8.5-10.5 [facility] Comment on above: Performed By: #### U A #### ([id number]) [address] [place] [address] Chloride [Moles/Vol] 104 mmol/L Normal 98-109 [facility] Comment on above: Performed By: #### U A #### ([id number]) [address] [place] [address] CO2 [Moles/Vol] 28 mmol/L Normal 22-32 [facility] Comment on above: Performed By: #### U A #### ([id number]) [address] [place] [address] Creatinine [Mass/Vol] 0.63 mg/dL Normal 0.40-1.00 [facility] Comment on above: Result Comment: METH OD TRACEABLE TO IDMS STANDARD Performed By: #### U A #### ([id number]) [address] [place] [address] [place] [address] eGFR (CKD-EPI) NON-RACE DEPENDENT >90 Normal >59 [facility] Comment on above: Result Comment: Reported eGFR is based on the CKD-EPI 2020 equation that does not use a race coefficient. Performed By: #### U A #### ([id number]) [address] [place] [address] Glucose [Mass/Vol] 92 mg/dL Normal 65-99 [facility] Comment on above: Performed By: #### U A #### ([id number]) [address] [place] [address] Potassium [Moles/Vol] 4.7 mmol/L Normal 3.5-5.0 [facility] Comment on above: Performed By: #### U A #### ([id number]) [address] [place] [address] Sodium [Moles/Vol] 140 mmol/L Normal 134-146 [facility] Comment on above: Performed By: #### U A #### ([id number]) [address] [place] [address] Urea nitrogen [Mass/Vol] 18 mg/dL Normal 5-23 [facility] Comment on above: Performed By: #### U A #### ([id number]) [address] [place] [address] BLOOD CULTUREon 10-05-2023 Bacteria identified Aer cx Nom (Bld) SPECIMEN NOTES SUBOPTIMAL VOLUME OF BLOOD COLLECTED, RESULTS MAY BE AFFECTED. CULTURE RESULTS NO GROWTH 5 DAYS Normal [facility] Comment on above: Performed By: #### U A #### ([id number]) [address] [place] [address] Bacteria identified Aer cx Nom (Bld) SPECIMEN NOTES RIGHT ANTECUBITAL CULTURE RESULTS NO GROWTH 5 DAYS Normal [facility] Comment on above: Performed By: #### U A #### ([id number]) [address] [place] [address] CBC AND AUTO DIFFon 10-05-19 24 Erythrocyte distribution width (RBC) [Ratio] 14.6 % Normal 11.5-15.0 [facility] Comment on above: Performed By: #### P INR, 67166-5 #### ([id number]) [address] [place] [address] #### CBCA, 44739-9, BMP, 1987- #### [facility] ([id number]) [address] [facility], [address] [place] [address] Hematocrit (Bld) [Volume fraction] 36.6 % Normal 35-47 [facility] Comment on above: Performed By: #### P INR, 69001-9 #### ([id number]) [address] [place] [address] #### CBCA, 82634-1, [facility], 1987-07 #### [facility] ([id number]) [address], [address] [place] [address] Hemoglobin (Bld) [Mass/Vol] 12.3 g/dL Normal 11.7-15.5 [facility] Comment on above: Performed By: #### P INR, 85563-2 #### ([id number]) [address] [place] [address] #### CBCA, 67575-9, [facility], 1987-07 #### [facility] ([id number]) [address] [place] [address] Lymphocytes (Bld) [#/Vol] 1.7 10*3/uL Normal 1.0-3.5 [facility] Comment on above: Performed By: #### P INR, 69027-4 #### ([id number]) [address] [place] [address] #### CBCLilian, 69730-8, [facility], 1987-07 #### [facility] ([id number]) [address], [address] [place] [address] Lymphocytes/100 WBC (Bld) 59.0 % Normal [facility] Comment on above: Performed By: #### P INR, 66114-1 #### ([id number]) [address] [place] [address] #### CBCA, 46652-8, BMP, 1987-07 #### [facility] ([id number]) [address], [address] [place] [address] MCH (RBC) [Entitic mass] 39.7 pg High 27-34 [facility] Comment on above: Performed By: #### P INR, 55405-0 #### ([id number]) [address] [place] [address] #### CBCA, 82738-4, BMP, 1987-07 #### [facility] ([id number]) [address], [address] [place] [address] MCHC (RBC) [Mass/Vol] 33.5 g/dL Normal 32-36 [facility] Comment on above: Performed By: #### P INR, 25895-2 #### ([id number]) [address] [place] [address] #### CBCA, 88926-3, BMP, 1987-07 #### [facility] ([id number]) [address] [place] [address] MCV (RBC) [Entitic vol] 119 fL High 80-100 [facility] Comment on above: Performed By: #### P INR, 72931-9 #### ([id number]) [address] [place] [address] #### CBCA, 60408-2, BMP, 1987-07 #### [facility] ([id number]) [address] [place] [address] Monocytes (Bld) [#/Vol] 0.2 10*3/uL Normal 0-0.9 [facility] Comment on above: Performed By: #### P INR, 18933-5 #### ([id number]) [address] [place] [address] #### CBCA, 64441-1, BMP, 1987-07 #### [facility] ([id number]) [address] [place] [address] Monocytes/100 WBC (Bld) 7.0 % Normal [facility] Comment on above: Performed By: #### P INR, 11751-8 #### ([id number]) [address] [place] [address]285 #### CBCA, 55051-4, BMP, 1987-07 #### [facility] ([id number]) [address] [place] [address] Neutrophils (Bld) [#/Vol] 1.0 10*3/uL Low 1.5-6.6 [facility] Comment on above: Performed By: #### P INR, 41704-2 #### ([id number]) [address] [place] [address] #### CBCA, 10666-2, BMP, 1987-07 #### [facility] ([id number]) [address], [address] [place] [address] Platelet mean volume (Bld) [Entitic vol] 8.7 fL Normal 7-12 [facility] Comment on above: Performed By: #### P INR, 93439-4 #### ([id number]) [address] [place] [address] 11974 #### CBCA, 60961-3, BMP, 1987-07 #### [facility] ([id number]) [address], [address] [place] [address] Platelets (Bld) [#/Vol] 290 10*3/uL Normal 150-450 [facility] Comment on above: Performed By: #### P INR, 76303-4 #### ([id number]) [address] [place] [address] 48150 #### CBCA, 98998-1, BMP, 1987-07 #### [facility] ([id number]) [address], [address] [place] [address] RBC COUNT 3.08 X10E12/L Low 3.80-5.20 [facility] Comment on above: Performed By: #### P INR, 46679-6 #### ([id number]) [address] [place] [address]25 #### CBCA, 71527-8, BMP, 1987-07 #### [facility] ([id number]) [address] [place] [address] RBC morphology finding Nom (Bld) NORMAL Normal [facility] Comment on above: Performed By: #### P INR, 41462-2 #### ([id number]) [address] [place] [address] #### CBCA, 82311-4, BMP, 1987-07 #### [facility] ([id number]) [address] [facility] [place] [address] SEG NEUTROPHIL 34.0 % Normal [facility] Comment on above: Performed By: #### P INR, 11390-7 #### ([id number]) [address] [place] [address] 95302 #### CBCA, 34977-2, BMP, 1987-07 #### [facility] ([id number]) [address] [facility] [place] [address] WBC (Bld) [#/Vol] 2.9 10*3/uL Low 4.0-11.0 [facility] Comment on above: Performed By: #### P INR, 37461-0 #### ([id number]) [address] [place] [address]250 #### CBCA, 55272-2, BMP, 1987-07 #### [facility] ([id number]) [address] [facility] [place] [address] CRP [Mass/Vol]on 10-05-2023 C REACTIVE PROTEIN 0.1 mg/dL Normal 0.000-0.7 4 4 [facility] Comment on above: Performed By: #### U A #### ([id number]) [address] [place] [address] ESR Photometric method (Bld) [Velocity]on 10-05-2023 ESR, ERYTHROCYTE SEDIMENTATION RATE 1 mm/h Normal 0-30 [facility] Comment on above: Performed By: #### U A #### ([id number]) [address] [place] [address] PROTIME AND INRon 10-05-2023 INR Coag (PPP) [Relative time] 1.0 {INR} Normal 0.8-1.1 [facility] Comment on above: Performed By: #### P INR, 30833-7 #### ([id number]) [address] [place] [address] 83251 #### CBCA, 57361-1, BMP, 1987-07 #### [facility] ([id number]) [address] [facility] [place] [address] PT Coag (PPP) [Time] 12.1 s Normal 9.8-13.2 [facility] Comment on above: Result Comment: NEW REFERENCE RANGE Performed By: #### P INR, 89224-7 #### ([id number]) [address] [place] [address] 55871 #### CBCA, 55080-9, BMP, 1987-07 #### [facility] ([id number]) [address] [facility] [place] [address] aPTT Coag (PPP) [Time]on aPTT Coag (Bld) [Time] 25 s Low 26-37 [facility] Comment on above: Result Comment: NEW REFERENCE RANGE Performed By: #### P INR, 47184-1 #### ([id number]) [address] [place] [address] #### CBCA, 27428-8, BMP, 1987- #### [facility] ([id number]) [address] [place] [address] URINALYSISon 10-02-2023 Bilirubin Ql (U) Negative Normal NEG [facility] Comment on above: Performed By: #### U A #### ([id number]) [address] [place] [address] BLOOD/HGB Negative Normal NEG [facility] Comment on above: Performed By: #### U A #### ([id number]) [address] [place] [address] Color (U) YELLOW Normal YELLOW [facility] Comment on above: Performed By: #### U A #### ([id number]) [address] [place] [address]99 Glucose Ql (U) Negative Normal NEG [facility] Comment on above: Performed By: #### U A #### ([id number]) [address] [place] [address] 72091 Ketones Ql (U) Negative Normal NEG [facility] Comment on above: Performed By: #### U A #### ([id number]) [address] [place] [address] Leukocyte esterase Test strip Ql (U) Trace Abnormal NEG [facility] Comment on above: Performed By: #### U A #### ([id number]) [address] [place] [address]27 Nitrite Ql (U) Positive Abnormal NEG [facility] Comment on above: Performed By: #### U A #### ([id number]) [address] [place] [address] pH (U) 7.5 [pH] Normal 5.0-8.5 [facility] Comment on above: Performed By: #### U A #### ([id number]) [address] [place] [address] 30148 Protein Ql (U) Negative Normal NEG [facility] Comment on above: Performed By: #### U A #### ([id number]) [address] [place] [address]51 R.B.CELLS 0 /hpf Normal 0-5 [facility] [facility] Comment on above: Performed By: #### U A #### ([id number]) [address] [place] [address] Specific gravity (U) [Rel density] 1.020 Normal 1.003-1.03 5 [facility] Comment on above: Performed By: #### U A #### ([id number]) [address] [place] [address] SQUAMOUS EPITHELIUM 12 /hpf High 0-5 [facility] Comment on above: Performed By: #### U A #### ([id number]) [address] [place] [address] [place] [address] TURBIDITY CLOUDY Abnormal CLEAR [facility] Comment on above: Performed By: #### U A #### ([id number]) [address] [place] [address] Urobilinogen Qn (U) 1.0 {Tra'U}/dL Normal <1.1 [facility] Comment on above: Performed By: #### U A #### ([id number]) [address] [place] [address] [place] [address] W.B.CELLS 5 /hpf Normal 0-5 [facility] Comment on above: Performed By: #### U A #### ([id number]) [address] [place] [address] BASIC METABOLIC PANLon 09-29 Anion gap [Moles/Vol] 8 mmol/L Normal 5-15 [facility] Comment on above: Performed By: #### C BCA, BMP #### [facility] ([id number]) [address], [address] [place] [address] Calcium [Mass/Vol] 10.1 mg/dL Normal 8.5-10.5 [facility] Comment on above: Performed By: #### C BCA, BMP #### [facility] ([id number]) [address], [address] [place] [address] Chloride [Moles/Vol] 104 mmol/L Normal 98-109 [facility] Comment on above: Performed By: #### C BCA, BMP #### [facility] ([id number]) [address], [address] [place] [address] CO2 [Moles/Vol] 28 mmol/L Normal 22-32 [facility] Comment on above: Performed By: #### C BCA, BMP #### [facility] ([id number]) [address], [address] [place] [address] Creatinine [Mass/Vol] 0.62 mg/dL Normal 0.40-1.00 [facility] Comment on above: Result Comment: METH OD TRACEABLE TO IDMS STANDARD Performed By: #### C BCA, BMP #### [facility] ([id number]) [address], [address] [place] [address] eGFR (CKD-EPI) NON-RACE DEPENDENT >90 Normal >59 [facility] Comment on above: Result Comment: Reported eGFR is based on the CKD-EPI 2020 equation that does not use a race coefficient. Performed By: #### C BCA, BMP #### [facility] ([id number]) [address] [address] [place] [address] Glucose [Mass/Vol] 99 mg/dL Normal 65-99 [facility] Comment on above: Performed By: #### C BCA, BMP #### [facility] ([id number]) [address] [address] [place] [address] Potassium [Moles/Vol] 3.8 mmol/L Normal 3.5-5.0 [facility] Comment on above: Performed By: #### C BCA, BMP #### [facility] ([id number]) [address] [address] Sodium [Moles/Vol] 140 mmol/L Normal 134-146 [facility] Comment on above: Performed By: #### C BCA, BMP #### [facility] ([id number]) [address] [address] [place] [address] Urea nitrogen [Mass/Vol] 15 mg/dL Normal 5-23 [facility] Comment on above: Performed By: #### C BCA, BMP #### [facility] ([id number]) [address] [address] CBC AND AUTO DIFFon 09-30-19 24 Eosinophils (Bld) [#/Vol] 0.0 10*3/uL Normal 0.0-0.4 [facility] Comment on above: Performed By: #### C BCA, BMP #### [facility] ([id number]) [address] [address] Eosinophils/100 WBC (Bld) 1.0 % Normal [facility] Comment on above: Performed By: #### C BCA, BMP #### [facility] ([id number]) [address] [place] [address] Erythrocyte distribution width (RBC) [Ratio] 15.0 % Normal 11.5-15.0 [facility] Comment on above: Performed By: #### Amanda WILKINSON, BMP #### [facility] ([id number]) [address] [place] [address] Hematocrit (Bld) [Volume fraction] 38.6 % Normal 35-47 [facility] Comment on above: Performed By: #### C MINH, BMP #### [facility] ([id number]) [address], [facility] [address] [place] [address] Hemoglobin (Bld) [Mass/Vol] 12.9 g/dL Normal 11.7-15.5 [facility] Comment on above: Performed By: #### C MNIH, BMP #### [facility] ([id number]) [address], [address] [place] [address] Lymphocytes (Bld) [#/Vol] 1.6 10*3/uL Normal 1.0-3.5 [facility] Comment on above: Performed By: #### Amanda WILKINSON, BMP #### [facility] ([id number]) [address], [address] [place] [address] Lymphocytes/100 WBC (Bld) 49.0 % Normal [facility] Comment on above: Performed By: #### Amanda WILKINSON, BMP #### [facility] ([id number]) [address] [address] [place] [address] MCH (RBC) [Entitic mass] 39.9 pg High 27-34 [facility] Comment on above: Performed By: #### C MINH, BMP #### [facility] ([id number]) [address] [address] [place] [address] MCHC (RBC) [Mass/Vol] 33.5 g/dL Normal 32-36 [facility] Comment on above: Performed By: #### C MINH, BMP #### [facility] ([id number]) [address], [address] [place] [address] MCV (RBC) [Entitic vol] 119 fL High 80-100 [facility] Comment on above: Performed By: #### C MINH, BMP #### [facility] ([id number]) [address], [address] [place] [address] Monocytes (Bld) [#/Vol] 0.4 10*3/uL Normal 0-0.9 [facility] Comment on above: Performed By: #### C MINH, BMP #### [facility] ([id number]) [address], [address] [place] [address] Monocytes/100 WBC (Bld) 11.0 % Normal [facility] Comment on above: Performed By: #### C MINH, BMP #### [facility] ([id number]) [address], [address] [place] [address] Neutrophils (Bld) [#/Vol] 1.2 10*3/uL Low 1.5-6.6 [facility] Comment on above: Performed By: #### C MINH, BMP #### [facility] ([id number]) [address], [address] [place] [address] Platelet mean volume (Bld) [Entitic vol] 8.5 fL Normal 7-12 [facility] Comment on above: Performed By: #### C MINH, BMP #### [facility] ([id number]) [address], [address] [place] [address] Platelets (Bld) [#/Vol] 316 10*3/uL Normal 150-450 [facility] Comment on above: Performed By: #### C MINH, BMP #### [facility] ([id number]) [address], [address] [place] [address] RBC COUNT 3.24 X10E12/L Low 3.80-5.20 [facility] Comment on above: Performed By: #### Amanda WILKINSON, BMP #### [facility] ([id number]) [address], [address] [place] [address] RBC morphology finding Nom (Bld) NORMAL Normal [facility] Comment on above: Performed By: #### Amanda WILKINSON, BMP #### [facility] ([id number]) [address], [facility] [address] [place] [address] SEG NEUTROPHIL 39.0 % Normal [facility] Comment on above: Performed By: #### Amanda WILKINSON, BMP #### [facility] ([id number]) [address], [address] [address] WBC (Bld) [#/Vol] 3.2 10*3/uL Low 4.0-11.0 [facility] Comment on above: Performed By: #### Amanda WILKINSON, BMP #### [facility] ([id number]) [address], [address] [address] BLOOD CULTUREon 09-26-2023 Bacteria identified Aer cx Nom (Bld) CULTURE RESULTS NO SPECIMEN RECEIVED IN LABORATORY ACCOUNT CREDITED Normal [facility] Comment on above: Performed By: #### 1 7928-3 #### [facility] ([id number]) [address], [address] [address] XR CHEST 2 VWSon 09-19-2023 XR CHEST [...] Xavier MD on 09/19/2023 2:40 PM Normal [facility] URINALYSISon 07-25-2023 Bilirubin Ql (U) Negative Normal NEG [facility] Comment on above: Performed By: #### U A #### ([id number]) [address] [place] [address] [place] [address] BLOOD/HGB Large Abnormal NEG [facility] Comment on above: Performed By: #### U A #### ([id number]) [address] [place] [address] [place] [address] CA OXALATE CRYSTALS PRESENT Abnormal NONE [facility] Comment on above: Performed By: #### U A #### ([id number]) [address] [place] [address] [place] [address] Color (U) YELLOW Normal YELLOW [facility] Comment on above: Performed By: #### U A #### ([id number]) [address] [place] [address] [place] [address] Glucose Ql (U) Negative Normal NEG [facility] Comment on above: Performed By: #### U A #### ([id number]) [address] [place] [address] [place] [address] Ketones Ql (U) Negative Normal NEG [facility] Comment on above: Performed By: #### U A #### ([id number]) [address] [place] [address] [place] [address] Leukocyte esterase Test strip Ql (U) SMALL Abnormal NEG [facility] Comment on above: Performed By: #### U A #### ([id number]) [address] [place] [address] Nitrite Ql (U) Positive Abnormal NEG [facility] Comment on above: Performed By: #### U A #### ([id number]) [address] [place] [address] pH (U) 6.0 [pH] Normal 5.0-8.5 [facility] Comment on above: Performed By: #### U A #### ([id number]) [address] [place] [address] Protein Ql (U) Negative Normal NEG [facility] Comment on above: Performed By: #### U A #### ([id number]) [address] [place] [address] R.B.CELLS 10 /hpf High 0-5 [facility] Comment on above: Performed By: #### U A #### ([id number]) [address] [place] [address] Specific gravity (U) [Rel density] 1.025 Normal 1.003-1.03 5 [facility] Comment on above: Performed By: #### U A #### ([id number]) [address] [place] [address] SQUAMOUS EPITHELIUM 10 /hpf High 0-5 [facility] Comment on above: Performed By: #### U A #### ([id number]) [address] [place] [address] [place] [address] TURBIDITY HAZY Abnormal CLEAR [facility] Comment on above: Performed By: #### U A #### ([id number]) [address] [place] [address] Urobilinogen Qn (U) 0.2 {Tra'U}/dL Normal <1.1 [facility] Comment on above: Performed By: #### U A #### ([id number]) [address] [place] [address] W.B.CELLS 31 /hpf High 0-5 [facility] Comment on above: Performed By: #### U A #### ([id number]) [address] [place] [address] URINE CULTUREon 07-25-2023 Bacteria identified Cx Nom [...] <=1 F TRIMETH/SULFAMETHOXAZOLE S <=1/19 F Susceptible [facility] Comment on above: Performed By: #### 6 30-4 #### [facility] ([id number]) [address] [facility] [place] [address] CT BRAIN WO CONTon 4 CT BRAIN WO CONT CT BRAIN WO CONT CLINICAL INFORMATION: Cerebrovascular accident (CVA), unspecified mechanism ([facility]) TECHNIQUE: CT BRAIN WO CONT CT images [...] Richards MD on 06/10/2023 3:07 PM Normal [facility] CALCIUMon 08-02-2022 Calcium [Mass/Vol] 9.2 mg/dL Normal 8.5-10.1 [facility] Comment on above: Performed By: #### C A, CREA #### [facility] [address] [place], [place] [address] Dr. Carmelina Sarah CREATININEon 08-02-2022 Creatinine [Mass/Vol] 0.88 mg/dL Normal 0.55-1.02 [facility] Comment on above: Performed By: #### C A, CREA ####[facility] [address] [place] [address]DrMelly Sarah EGFR-AF VINCENTIAN >60 Normal >=60 [facility] Comment on above: Performed By: #### C A, CREA ####[facility] [address] [place] [address]DrMelly Sarah EGFR-NON AF VINCENTIAN >60 Normal >=60 [facility] Comment on above: Performed By: #### C A, CREA ####[facility] [address] [place] [address]Dr. Carmelina Sarah MG MAMM SCREEN 3D CONCEPCIÓN CADon 03-24-2022 MG MAMM SCREEN 3D CONCEPCIÓN CAD Patient: ANGELIQUE MELO Exam Date: 03/24/2022 : 1965 Gender:F Ordering : DR ALEX THOMASON . Admission #: [id number] Family : Order #: [id number] CLICK HERE TO VIEW EXAM RADIOLOGY REPORT [...] lymphoma cancer at age 44. LOCATION: [facility] BREAST COMPOSITION: Scattered areas fibroglandular density. FINDINGS: [...] Frances Quezada MD on 03/25/2022 at 08:[address] [facility] XR DEXA BONE DENSITYon 03-24 XR DEXA BONE DENSITY DEXA Bone Density Study CLINICAL: Evaluate bone mineral density. Postmenopausal COMPARISON: None FINDINGS: The bone density study was assessed by dual-energy x-ray absorptiometry with the [employer] scanner. The test results are expressed in [...] FRANCES NICHOLS Date: 2022-03-24 09:29 Normal [facility] CBC AUTO DIFFon 02-22-2022 BASO # 0.3 103/ul Critically high 0.0-0.1 [facility] Comment on above: Performed By: #### C BC ####[facility] [address] [place], [place] [address]Dr. Carmelina Sarah Basophils/100 WBC (Bld) 3.0 % Critically high 0.2-2.0 [facility] Comment on above: Performed By: #### C BC ####[facility] [address] [place] [address]Dr. Yilan Sarah EO # 0.3 103/ul Normal 0.0-0.7 [facility] Comment on above: Performed By: #### C BC ####[facility] [address] [place], [place] [address]Dr. Yilan Sarah Eosinophils/100 WBC (Bld) 3.1 % Normal 0.9-7.0 [facility] Comment on above: Performed By: #### C BC ####[facility] [address] [place], [place] [address]Dr. Carmelina Sarah Erythrocyte distribution width (RBC) [Ratio] 15.8 % Critically high 11.0-15.0 [facility] Comment on above: Performed By: #### C BC ####[facility] [address] [place] [address]Dr. Carmelina Sarah Hematocrit (Bld) [Volume fraction] 48.5 % Critically high 36.0-48.0 [facility] Comment on above: Performed By: #### C BC ####[facility] [address] [place] [address]Dr. Candemargarita Sarah Hemoglobin (Bld) [Mass/Vol] 15.6 g/dL Normal 12.0-16.0 [facility] Comment on above: Performed By: #### C BC ####[facility] [address] [place] [address]Dr. Carmelina Sarah IG # 0.05 10e3/ul Critically high 0.00-0.03 [facility] Comment on above: Performed By: #### C BC ####[facility] [address] [place] [address]Dr. Carmelina Sarah IG % 0.5 % Normal 0.0-0.5 [facility] Comment on above: Performed By: #### C BC ####[facility] [address] [place] [address]Dr. Carmelina Sarah LYMPH # 3.2 103/ul Normal 1.2-3.8 [facility] Comment on above: Performed By: #### C BC ####[facility] [address] [place] [address]Dr. Carmelina Sarah Lymphocytes/100 WBC (Bld) 33.4 % Normal 20.5-60.0 [facility] Comment on above: Performed By: #### C BC ####[facility] [address] [place] [address]Dr. Carmelina Sarah MANUAL DIFF REQ NO Normal [facility] Comment on above: Performed By: #### C BC ####[facility] [address] [place] [address]Dr. Carmelina Sarah MCH (RBC) [Entitic mass] 28.3 pg Normal 26.7-34.0 [facility] Comment on above: Performed By: #### C BC ####[facility] [address] [place] [address]Dr. Carmelina Sarah MCHC (RBC) [Mass/Vol] 32.2 g/dL Normal 29.9-35.2 [facility] Comment on above: Performed By: #### C BC ####[facility] [address] [place] [address]Dr. Carmelina Tyrel MCV (RBC) [Entitic vol] 88.0 fL Normal 81.0-99.0 [facility] Comment on above: Performed By: #### C BC ####[facility] [address] [place], [place] [address]Dr. Carmelina Tyrel MONO # 0.7 103/ul Normal 0.3-0.8 [facility] Comment on above: Performed By: #### C BC ####[facility] [address] [place], [place] [address]Dr. Candemargarita Sarah Monocytes/100 WBC (Bld) 7.7 % Normal 1.7-12.0 [facility] Comment on above: Performed By: #### C BC ####[facility] [address] [place], [place] [address]Dr. Carmelina Sarah NEUT # 5.0 103/ul Normal 1.4-6.5 [facility] Comment on above: Performed By: #### C BC ####[facility] [address] [place], [place] [address]Dr. Candemargarita Sarah Neutrophils/100 WBC (Bld) 52.3 % Normal 43.0-75.0 [facility] Comment on above: Performed By: #### C BC ####[facility] [address] [place], [place] [address]Dr. Carmelina Tyrel Platelet mean volume (Bld) [Entitic vol] 10.8 fL Normal 9.5-13.5 [facility] Comment on above: Performed By: #### C BC ####[facility] [address] [place], [place] [address]Lf. Carmelina Sarah PLT 765 103/ul Critically high 150-450 [facility] Comment on above: Performed By: #### C BC ####[facility] [address] [place], [place] [address]Eq. Carmelina Sarah RBC 5.51 106/ul Critically high 4.20-5.40 [facility] Comment on above: Performed By: #### C BC ####[facility] [address] [place], [place] [address]Eo. Carmelina Sarah WBC 9.6 103/ul Normal 4.0-11.0 [facility] Comment on above: Performed By: #### C BC ####[facility] [address] [place], [place] [address]Xo. Carmelina Sarah FREE T3on 02-22-2022 FREE T3 3.14 pg/mlL Normal 2.18-3.98 [facility] Comment on above: Performed By: #### F T3, TSH, T4, LIPID, CMP #### [facility] [address] [place] [address] [address] Carmelina Sarah GLYCOHEMOGLOBIN A1Con 2021 ADA RECOMMENDATION SEE BELOW Normal [facility] Comment on above: Result Comment: ADA RECOMMENDED LIMIT 4.0 - 6.0 ADA THERAPEUTIC TARGET < 7.0 ACTION SUGGESTED > 7.0 Performed By: #### A 1C #### [facility] [address] [place] [address] [address] Carmelina Sarah Glucose [Mass/Vol] 108 mg/dL Normal [facility] Comment on above: Performed By: #### A 1C #### [facility] [address] [place] [address] [address] Carmelina Sarah HbA1c (Bld) [Mass fraction] 5.4 % Normal 4.5-6.2 [facility] Comment on above: Performed By: #### A 1C #### [facility] [address] [place] [address] [address] Carmelina Sarah LIPID PROFILEon 02-22-2022 CHOL-HDL RATIO NORM SEE BELOW Normal [facility] Comment on above: Result Comment: 3.3 - 4.4 LOW RISK 4.4 - 7.1 AVERAGE RISK 7.1 - 11.0 MODERATE RISK >11.0 HIGH RISK Performed By: #### F T3, TSH, T4, LIPID, CMP #### [facility] [address] [place] [address] [address] Carmelina Sarah Cholesterol [Mass/Vol] 158 mg/dL Normal <=200 [facility] Comment on above: Performed By: #### F T3, TSH, T4, LIPID, CMP #### [facility] [address] [place] [address] [address] Carmelina Sarah Cholesterol in HDL [Mass/Vol] 62 mg/dL Critically high 40-60 [facility] Comment on above: Performed By: #### F T3, TSH, T4, LIPID, CMP #### [facility] [address] [place] [address] [address] Carmelina Sarah Cholesterol in LDL [Mass/Vol] 81.2 mg/dL Normal [facility] Comment on above: Performed By: #### F T3, TSH, T4, LIPID, CMP #### [facility] [address] [place] [address] [address] Carmelina Sarah Cholesterol.total/ Cholesterol in HDL [Mass ratio] 2.5 {ratio} Normal [facility] Comment on above: Performed By: #### F T3, TSH, T4, LIPID, CMP #### [facility] [address] [place] [address] [address] Carmelina Sarah HDL NORMAL > or = 60 mg/dl - LO W CARDIOVASCULAR RISK <40 mg/dl - HIGH CARDIOVASCULAR RISK Normal [facility] Comment on above: Performed By: #### F T3, TSH, T4, LIPID, CMP #### [facility] [address] [place] [address] [address] Carmelina Sarah LDL CALC NORMAL SEE BELOW Normal [facility] Comment on above: Result Comment: <100 mg/dl OPTIMAL 100 - 129 mg/dl NEAR OR ABOVE OPTIMAL 130 - 159 mg/dl BORDERLINE HIGH 160 - 189 mg/dl HIGH >190 mg/dl VERY HIGH Performed By: #### F T3, TSH, T4, LIPID, CMP #### [facility] [address] [place] [address] [address] Carmelina Sarah Triglyceride [Mass/Vol] 74 mg/dL Normal <=150 [facility] Comment on above: Performed By: #### F T3, TSH, T4, LIPID, CMP #### [facility] [address] [place] [address] [address] Carmelina Sarah VLDL CALC 14.8 mg/dL Normal [facility] Comment on above: Performed By: #### F T3, TSH, T4, LIPID, CMP #### [facility] [address] [place] [address] Dr. Carmelina Sarah PROF 14(COMP METB)on 022 Albumin [Mass/Vol] 3.8 g/dL Normal 3.4-5.0 [facility] Comment on above: Performed By: #### F T3, TSH, T4, LIPID, CMP #### [facility] [address] [place] [address] Dr. Carmelina Sarah Albumin/Globulin [Mass ratio] 1.0 {ratio} Normal [facility] Comment on above: Performed By: #### F T3, TSH, T4, LIPID, CMP #### [facility] [address] [place] [address] Dr. Carmelina Sarah ALP [Catalytic activity/Vol] 102 U/L Normal 46-116 [facility] Comment on above: Performed By: #### F T3, TSH, T4, LIPID, CMP #### [facility] [address] [place] [address] Dr. Carmelina Sarah ALT [Catalytic activity/Vol] 22 U/L Normal 14-59 [facility] Comment on above: Performed By: #### F T3, TSH, T4, LIPID, CMP #### [facility] [address] [place] [address] Dr. Carmelina Sarah Anion gap [Moles/Vol] 11.1 mmol/L Normal [facility] Comment on above: Performed By: #### F T3, TSH, T4, LIPID, CMP #### [facility] [address] [place] [address] Dr. Carmelina Sarah AST [Catalytic activity/Vol] 21 U/L Normal 15-37 [facility] Comment on above: Performed By: #### F T3, TSH, T4, LIPID, CMP #### [facility] [address] [place] [address] [address] Carmelina Sarah Bilirubin [Mass/Vol] 0.5 mg/dL Normal 0.2-1.0 [facility] Comment on above: Performed By: #### F T3, TSH, T4, LIPID, CMP #### [facility] [address] [place] [address] [address] Carmelina Sarah Calcium [Mass/Vol] 9.2 mg/dL Normal 8.5-10.1 [facility] Comment on above: Performed By: #### F T3, TSH, T4, LIPID, CMP #### [facility] [address] [place] [address] Dr. Carmelina Sarah Chloride [Moles/Vol] 104 mmol/L Normal 98-107 [facility] Comment on above: Performed By: #### F T3, TSH, T4, LIPID, CMP #### [facility] [address] [place] [address] Dr. Carmeilna Sarah CO2 [Moles/Vol] 27.6 mmol/L Normal 21.0-32.0 [facility] Comment on above: Performed By: #### F T3, TSH, T4, LIPID, CMP #### [facility] [address] [place] [address] Dr. Carmelina Sarah Creatinine [Mass/Vol] 0.93 mg/dL Normal 0.55-1.02 [facility] Comment on above: Performed By: #### F T3, TSH, T4, LIPID, CMP #### [facility] [address] [address] [address] Carmelina Sarah EGFR-AF VINCENTIAN >60 Normal >=60 [facility] Comment on above: Performed By: #### F T3, TSH, T4, LIPID, CMP #### [facility] [address] [place] [address] Dr. Carmelina Sarah EGFR-NON AF VINCENTIAN >60 Normal >=60 [facility] Comment on above: Performed By: #### F T3, TSH, T4, LIPID, CMP #### [facility] [address] [address] [address] Carmelina Sarah Globulin (S) [Mass/Vol] 3.7 g/dL Normal [facility] Comment on above: Performed By: #### F T3, TSH, T4, LIPID, CMP #### [facility] [address] [place] [address] Dr. Carmelina Sarah Glucose [Mass/Vol] 90 mg/dL Normal 74-106 [facility] Comment on above: Performed By: #### F T3, TSH, T4, LIPID, CMP #### [facility] [address] [place] [address] Dr. Carmelina Sarah Potassium [Moles/Vol] 3.7 mmol/L Normal 3.5-5.1 [facility] Comment on above: Performed By: #### F T3, TSH, T4, LIPID, CMP #### [facility] [address] [place] [address] Dr. Carmelina Sarah Protein [Mass/Vol] 7.5 g/dL Normal 6.4-8.2 [facility] Comment on above: Performed By: #### F T3, TSH, T4, LIPID, CMP #### [facility] [address] [place] [address] Dr. Carmelina Sarah Sodium [Moles/Vol] 139 mmol/L Normal 136-145 [facility] Comment on above: Performed By: #### F T3, TSH, T4, LIPID, CMP #### [facility] [address] [place] [address] Dr. Carmelina Sarah Urea nitrogen [Mass/Vol] 19.0 mg/dL Critically high 7.0-18.0 [facility] Comment on above: Performed By: #### F T3, TSH, T4, LIPID, CMP #### [facility] [address] [place] [address] Dr. Carmelina Sarah Urea nitrogen/Creatinin e [Mass ratio] 20.4 mg/mg Normal [facility] Comment on above: Performed By: #### F T3, TSH, T4, LIPID, CMP #### [facility] [address] [place] [address] Dr. Carmelina Sarah T4on 02-22-2022 T4 [Mass/Vol] 8.10 ug/dL Normal 4.80-13.90 [facility] Comment on above: Performed By: #### F T3, TSH, T4, LIPID, CMP #### [facility] [address] [place] [address] Dr. Carmelina Sarah TSHon 02-22-2022 TSH 0.985 uIU/mL Normal 0.358-3.74 0 [facility] Comment on above: Performed By: #### F T3, TSH, T4, LIPID, CMP #### [facility] [address] [place] [address] Dr. Carmelina Sarah VITAMIN D 25 OHon 02-22-2022 VIT D 25-OH 51.9 ng/mL Normal [facility] Comment on above: Performed By: #### V ITAD #### [facility] [address] [place] [address] Dr. Carmelina Sarah VIT D RANGES SEE BELOW Normal [facility] Comment on above: Result Comment: <20 ng/mL Vit D deficient 20 - <30 ng/mL Vit D insufficient 30 - 100 ng/mL Vit D sufficient >100 ng/mL Potential Toxicity Performed By: #### V ITAD #### [facility] [address] [place] [address] Dr. Carmelina Sarah COVID Quick Testingon 2020 Result Negative [employer] [facility] SARS-CoV-2 (COVID-19) RNA TIRSO+probe Ql (Unsp spec) Negative Normal Negative [facility] Comment on above: Order Comment: Healt hcare Worker?: N Result Comment: Refe rence: Negative Testing for SARS-CoV-2 by RT-PCR This test was developed and its performance characteristics determined by [employer] ([employer]) and validated at the [facility]. This test has not been FDA cleared [...] is terminated or revoked sooner. PERFORMED BY: [place] [address] PATHOLOGIST ANIMAL CONTROL SUPERVISOR TOSHIA GILLIS M.D. Performed By: #### C OVID-19 [facility] #### [facility] [address] [place] [address] COVID-19 Positive/Negativeon 06-09-2020 COVID-19 Positive/Negative Negative Negative [facility] Comment on above: Reference: NegativeT esting for SARS-CoV-2 by RT-PCRThis test was developed and its performance characteristics determined by [employer] ([employer]) and validated at the [facility]. This test has not been FDA cleared [...] Otheron 06-09-2020 Coronavirus 2019 PCR Interp N/A [facility] Automated basophil %on 06-06 Basophils/100 WBC (Bld) 2.9 % [facility] Automated basophil counton 0 06-06-2020 Basophils (Bld) [#/Vol] 0.3 10*3/uL 0.0-0.2 [facility] Automated blood lymphocyte c ount (number/volume)on 06-06-2020 Lymphocytes (Bld) [#/Vol] 2.4 10*3/uL 1.00-4.8 [facility] Automated blood lymphocyte c ount as percentage of total leukocyteson 06-06-2020 Lymphocytes/100 WBC (Bld) 26.6 % [facility] Automated blood monocyte cou nton 06-06-2020 Monocytes (Bld) [#/Vol] 1.0 10*3/uL 0.0-0.8 [facility] Automated blood platelet cou nt (count/volume)on 06-06-2020 Platelets (Bld) [#/Vol] 527 10*3/uL 150-450 [facility] Automated blood platelet joi n volume measurementon 06-06-2020 Platelet mean volume (Bld) [Entitic vol] 9.6 fL 6.3-10.7 [facility] Automated eosinophil %on Eosinophils/100 WBC (Bld) 4.8 % [facility] Automated eosinophil counton 06-06-2020 Eosinophils (Bld) [#/Vol] 0.4 10*3/uL 0.0-0.45 [facility] Automated erythrocyte distri bution width ratioon 06-06-2020 Erythrocyte distribution width (RBC) [Ratio] 15.8 % 11.9-15.3 [facility] Automated erythrocyte mean c orpuscular hemoglobin (mass per erythrocyte)on 06-06-2020 MCH (RBC) [Entitic mass] 28.7 pg 24.7-34.3 [facility] Automated erythrocyte mean c orpuscular hemoglobin concentration measurement (mass/volon 06-06-2020 MCHC (RBC) [Mass/Vol] 33.4 g/dL 32.0-35.0 [facility] Automated erythrocyte mean c orpuscular volumeon 06-06-2020 MCV (RBC) [Entitic vol] 85.9 fL 80-100 [facility] Automated monocyte %on 06-06 Monocytes/100 WBC (Bld) 10.9 % [facility] Automated neutrophil %on Neutrophils/100 WBC (Bld) 54.8 % [facility] Blood erythrocytes automated count (number/volume)on 06-06-2020 RBC (Bld) [#/Vol] 5.10 10*6/uL 3.60-5.00 [facility] Blood hemoglobin measurement (mass/volume)on 06-06-2020 Hemoglobin (Bld) [Mass/Vol] 14.7 g/dL 11.8-15.4 [facility] Blood leukocytes automated c ount (number/volume)on 06-06-2020 WBC (Bld) [#/Vol] 9.0 10*3/uL 4.5-11.[address] [facility] Blood neutrophil count by au tomated method (number/volume)on 06-06-2020 Neutrophils (Bld) [#/Vol] 4.9 10*3/uL 1.8-7.7 [facility] Body fluid albumin measureme nt (mass/volume)on 06-06-2020 Albumin (Body fld) [Mass/Vol] 4.0 g/dL 3.2-5.5 [facility] Complete Blood Count Auto Di ffon 06-06-2020 Basophils (Bld) [#/Vol] 0.3 10*3/uL High 0.0-0.2 [facility] Comment on above: Result Comment: PERF ORMED BY: [facility] [address] [address] PATHOLOGIST ANIMAL CONTROL SUPERVISOR TOSHIA GILLIS M.D. Performed By: #### C MP, CBC #### [facility] [address] [place] [address] [place] Basophils/100 WBC (Bld) 2.9 % Normal . [facility] Comment on above: Performed By: #### C MP, CBC #### [facility] [address] Eosinophils (Bld) [#/Vol] 0.4 10*3/uL Normal 0.0-0.45 [facility] Comment on above: Performed By: #### C MP, CBC #### [place] [address] [place] Eosinophils/100 WBC (Bld) 4.8 % Normal . [facility] Comment on above: Performed By: #### C MP, CBC #### [address] Erythrocyte distribution width (RBC) [Ratio] 15.8 % High 11.9-15.3 [facility] Comment on above: Performed By: #### C MP, CBC #### [address] Hematocrit (Bld) [Volume fraction] 43.8 % Normal 34.0-46.4 [facility] Comment on above: Performed By: #### C MP, CBC #### [address] Hemoglobin (Bld) [Mass/Vol] 14.7 g/dL Normal 11.8-15.4 [facility] Comment on above: Performed By: #### C MP, CBC #### [place] [address] [place] Lymphocytes (Bld) [#/Vol] 2.4 10*3/uL Normal 1.00-4.8 [facility] Comment on above: Performed By: #### C MP, CBC #### [place] [address] [place] Lymphocytes/100 WBC (Bld) 26.6 % Normal . [facility] Comment on above: Performed By: #### C MP, CBC #### [address] MCH (RBC) [Entitic mass] 28.7 pg Normal 24.7-34.3 [facility] Comment on above: Performed By: #### C MP, CBC #### [address] MCV (RBC) [Entitic vol] 85.9 fL Normal 80-100 [facility] Comment on above: Performed By: #### C MP, CBC #### [facility] [address] Mean Corpuscular HGB Conc 33.4 g/dL Normal 32.0-35.0 [facility] Comment on above: Performed By: #### C MP, CBC #### [facility] [address] [place] [address] [place] Monocytes (Bld) [#/Vol] 1.0 10*3/uL High 0.0-0.8 [facility] Comment on above: Performed By: #### C MP, CBC #### [facility] [address] [place] [address] [place] Monocytes/100 WBC (Bld) 10.9 % Normal . [facility] Comment on above: Performed By: #### C MP, CBC #### [facility] [address] [place] [address] [place] Neutrophils (Bld) [#/Vol] 4.9 10*3/uL Normal 1.8-7.7 [facility] Comment on above: Performed By: #### C MP, CBC #### [facility] [address] [place] [address] [place] Neutrophils/100 WBC (Bld) 54.8 % Normal . [facility] Comment on above: Performed By: #### C MP, CBC #### [facility] [address] [id number] [place] Nucleated RBC/100 WBC (Bld) [Ratio] 0.0 % Normal 0-0.5 [facility] Comment on above: Performed By: #### C MP, CBC #### [facility] [address] [place] [address] [place] Platelet mean volume (Bld) [Entitic vol] 9.6 fL Normal 6.3-10.7 [facility] Comment on above: Performed By: #### C MP, CBC #### [facility] [address] [id number] [place] Platelets (Bld) [#/Vol] 527 10*3/uL High 150-450 [facility] Comment on above: Performed By: #### C MP, CBC #### [address] RBC (Bld) [#/Vol] 5.10 10*6/uL High 3.60-5.00 [facility] Comment on above: Performed By: #### C MP, CBC #### [address] WBC (Bld) [#/Vol] 9.0 10*3/uL Normal 4.5-11.0 [facility] Comment on above: Performed By: #### C MP, CBC #### [facility] [address] [place] [address] Comprehensive Metabolic Pane chrystal 06-06-2020 Albumin [Mass/Vol] 4.0 g/dL Normal 3.2-5.5 [facility] Comment on above: Performed By: #### C MP, CBC #### [address] Albumin/Globulin [Mass ratio] 1.6 {ratio} Normal [facility] Comment on above: Performed By: #### C MP, CBC #### [address] ALP [Catalytic activity/Vol] 107 U/L High 32-92 [facility] Comment on above: Result Comment: PERF ORMED BY: [place] [address] PATHOLOGIST ANIMAL CONTROL SUPERVISOR TOSHIA GILLIS M.D. Performed By: #### C MP, CBC #### [address] ALT [Catalytic activity/Vol] 22 U/L Normal 10-60 [facility] Comment on above: Performed By: #### C MP, CBC #### [address] AST [Catalytic activity/Vol] 23 U/L Normal 10-42 [facility] Comment on above: Performed By: #### C MP, CBC #### [address] Bilirubin [Mass/Vol] 0.7 mg/dL Normal 0.3-1.2 [facility] Comment on above: Performed By: #### C MP, CBC #### [facility] [address] Calcium [Mass/Vol] 9.7 mg/dL Normal 8.2-10.2 [facility] Comment on above: Performed By: #### C MP, CBC #### [facility] [address] Chloride [Moles/Vol] 101 mmol/L Normal 95-114 [facility] Comment on above: Performed By: #### C MP, CBC #### [address] CO2 [Moles/Vol] 25.1 mmol/L Normal 22.0-30.0 [facility] Comment on above: Performed By: #### C MP, CBC #### [address] Creatinine [Mass/Vol] 0.97 mg/dL Normal 0.44-1.03 [facility] Comment on above: Performed By: #### C MP, CBC #### [address] Estimated GFR ( [place] > 60 Normal [facility] Comment on above: Result Comment: GFR estimated reference range: According to KDOQI guidelines, <60 ml/min/1.73m2 is sufficient to diagnose a patient with chronic kidney disease. Performed By: #### C MP, CBC #### [place] [address] [place] Estimated GFR (Non- Am 59 Normal [facility] Comment on above: Performed By: #### C MP, CBC #### [place] [address] [place] Globulin (S) [Mass/Vol] 2.5 g/dL Normal [facility] Comment on above: Performed By: #### C MP, CBC #### [place] [address] [place] Glucose [Mass/Vol] 80 mg/dL Normal 70-100 [facility] Comment on above: Result Comment: [place] Glucose Reference Range is dependent on time and content of last meal. Glucose of more than 200 mg/dL in a nonstressed, ambulatory subject supports the diagnosis of Diabetes Mellitus. ADA recommended reference range Performed By: #### C MP, CBC #### [facility] [address] [id number] [place] Potassium [Moles/Vol] 5.1 mmol/L Normal 3.5-5.1 [facility] Comment on above: Performed By: #### C MP, CBC #### [facility] [address] [place] [address] [place] Protein [Mass/Vol] 6.5 g/dL Normal 6.1-7.9 [facility] Comment on above: Performed By: #### C MP, CBC #### [facility] [address] [id number] [place] Sodium [Moles/Vol] 136 mmol/L Normal 136-146 [facility] Comment on above: Performed By: #### C MP, CBC #### [facility] [address] [place] [address] [place] Urea nitrogen [Mass/Vol] 15 mg/dL Normal 9-23 [facility] Comment on above: Performed By: #### C MP, CBC #### [facility] [address] [id number] [place] ECG 12 lead ECGon 06-06-2020 ECG 12 lead ECG [facility] [place] [address] [place] [address] Electrocardiograph Report Signed Patient: Angelique Melo MR#: [id number] : 1965 Acct:[id number] Age/Sex: 54 / F ADM Date: 06/06/20 Loc: PS Room: Type: [facility] Attending Dr: Sesar Gutiérrez MD Ordering Provider: [...] DO 06/06/20914 Signed By: 06/06/20 1507 Normal [facility] Estimated glomerular filtrat ion rate (GFR) non- Americanon 06-06-2020 GFR/1.73 sq M predicted among non-blacks MDRD (S/P/Bld) [Vol rate/Area] 59 mL/min/{1.73_m2} [facility] Hematocrit [Volume Fraction] of Blood by Automated counton 06-06-2020 Hematocrit (Bld) [Volume fraction] 43.8 % 34.0-46.4 [facility] Otheron 06-06-2020 GFR/1.73 sq M.predicted MDRD (S/P/Bld) [Vol rate/Area] mL/min/{1.73_m2} [facility] Comment on above: GFR estimated refere nce range: According to KDOQI guidelines, <60 ml/min/1.73m2 is sufficient to diagnose a patient with chronic kidney disease. Nucleated RBC/100 WBC (Bld) [Ratio] 0.0 % 0-0.5 [facility] Creatinine Clearance (Chem N/A [facility] Protein [Mass/volume] in Ser um or Plasmaon 06-06-2020 Protein [Mass/Vol] 6.5 g/dL 6.1-7.[address] [facility] Serum globulin measurement b y calculation (mass/volume)on 06-06-2020 Globulin (S) [Mass/Vol] 2.5 g/dL [facility] Serum or plasma alanine berry otransferase measurement without P-5'-P (enzymatic activion 06-06-2020 ALT No additional P-5'-P [Catalytic activity/Vol] 22 U/L 10-60 [facility] Serum or plasma albumin/glob ulin mass ratioon 06-06-2020 Albumin/Globulin [Mass ratio] 1.6 {ratio} [facility] Serum or plasma alkaline anju sphatase measurement (enzymatic activity/volume)on 06-06-2020 ALP [Catalytic activity/Vol] 107 U/L 32-92 [facility] Serum or plasma aspartate am inotransferase measurement (enzymatic activity/volume)on 06-06-2020 AST [Catalytic activity/Vol] 23 U/L 10-42 [facility] Serum or plasma calcium sammi urement (mass/volume)on 06-06-2020 Calcium [Mass/Vol] 9.7 mg/dL 8.2-10.[address] [facility] Serum or plasma chloride joi surement (moles/volume)on 06-06-2020 Chloride [Moles/Vol] 101 mmol/L 95-114 [facility] Serum or plasma creatinine m easurement with calculation of estimated glomerular filtron 06-06-2020 Creatinine [Mass/Vol] 0.97 mg/dL 0.44-1.03 [facility] Serum or plasma glucose sammi urement (mass/volume)on 06-06-2020 Glucose [Mass/Vol] 80 mg/dL 70-[address] [facility] Comment on above: ADA recommended refe rence rangeRandom Glucose Reference Range is dependent on time and content of last meal. Glucose of more than 200 mg/dL in a nonstressed, ambulatory subject supports the diagnosis of Diabetes Mellitus. Serum or plasma potassium me asurement (moles/volume)on 06-06-2020 Potassium [Moles/Vol] 5.1 mmol/L 3.5-5.1 [facility] Serum or plasma sodium measu rement (moles/volume)on 06-06-2020 Sodium [Moles/Vol] 136 mmol/L 136-[address] [facility] Serum or plasma total biliru bin measurement (mass/volume)on 06-06-2020 Bilirubin [Mass/Vol] 0.7 mg/dL 0.3-1.2 [facility] Serum or plasma total carbon dioxide measurement (moles/volume)on 06-06-2020 CO2 [Moles/Vol] 25.1 mmol/L 22.0-30.0 [facility] Serum or plasma urea nitroge n measurement (mass/volume)on 06-06-2020 Urea nitrogen [Mass/Vol] 15 mg/dL 12-18 [facility] MRI KNEE RIGHT WO CONTRASTon [...] by: Rogerio Mathis 05/09/20 Final result Normal [facility] Complex tear of the posterior horn of the medial meniscus. Horizontal tear of the posterior horn and body of the lateral meniscus. [facility] [employer] Work Phone: EXAMINATION: MRI OF THE RIGHT [...] fracture, dislocation or avascular necrosis is seen. [employer] Phone: [place], [employer] Incoming R adiant Results From [employer] - 05/09/2020 9:03 PM EST EXAMINATION: MRI [...] horn and body of the lateral meniscus. [employer] Phone: Coding Summary.on 03-29-2018 Coding Summary. CODING DATE: 019 [facility] STATUS: Home (Routine DC) PAYOR: [facility] [place] APC DESCRIPTION 5312 Level 2 Lower GI Procedures ADMIT DX: REASON FOR VISIT DX: R19.5 Other fecal abnormalities FINAL DX: PRINCIPAL: D12.5 Benign neoplasm of sigmoid colon SECONDARY: E78.00 Pure hypercholesterolemia, unspecified F32.9 Major depressive disorder, single episode, unspecified F17.200 Nicotine dependence, unspecified, uncomplicated PYMT PROC APC STAT DESCRIPTION DOCTOR NAME DATE 95060 5312 T Colonoscopy, flexible; Gala DESOUZA MD 03/20/2018 with removal of tumor(s), polyp(s), or other lesion(s) by snare technique 91653 Anesthesia for lower Ben Deal JR, DO [...] Revised Date Saved: 03/29/2018 03:45 pm Normal [facility] Main OR Intraoperative Recor don 03-22-2018 Main OR Intraoperative Record IntraOp Document Type FT Summary Primary Physician: Gala DESOUZA MD Finalized Date/Time: 03/22/18 14:43:28 Pt. Name: ANGELIQUE MELO./Sex: 1965 Female Med Rec #: [id number] Physician: Gala DESOUZA MD Financial #: [id number] Pt. Type: O Room/Bed: / Admit/Disch: 03/20/18 [...] to review and send charges Sixto Sellers STRATEGIC MANAGER Case Attendance FT Entry 1 Entry 2 Entry 3 Case Attendee Elma Duffy MD, Gala Bautista RN, Zelda Role Performed Anesthesiologist Surgeon - Primary Orthopedic Rn - Primary Continuous Crusher Operator Time In 03/20/18 09:05:00 03/20/18 09:05:00 03/20/18 09:05:00 Time Out 03/20/18 09:29:00 03/20/18 09:29:00 03/20/18 09:29:00 Procedure COLONOSCOPY(.) COLONOSCOPY(.) COLONOSCOPY(.) Comments supervising Last Modified By: Michele RN, Zelda Bautista RN, Zelda Bautista RN, Zelda 03/20/18 09:29:46 03/20/18 09:29:46 03/20/18 09:29:46 Entry 4 Entry 5 Case Attendee Samara Blanco [place] [employer] Machine OperatorWinnie Role Performed Scrub - Other Scrub - [...] Time Out Elma Duffy, Given Participants Gala DSEOUZA MD, Workman RN, Zelda [facility] Complete 03/20/18 09:07:00 Outcomes Met? [...] and tissue Entry 1 Skin Integrity Intact, [place], Warm, and Skin Abnormality No Dry Outcomes [...] injury caused by extraneous objects Transport To [facility] Pre-Care Text: Transports according to individual needs. [...] RN Patient Status Stable Skin. Condition Intact, [place], Warm, and Dry Airway Maintenance Oxygen in Use? No Airway Device N/A Outcomes Met? 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 Yes Verified Last Modified By: Zelda Bautista RN 03/20/18 06:49:20 Post-Care Text: The patient received appropriate medication(s) safely administered during the perioperative period For [facility] please see scanned medication reconcilliation form for [...] 03/20/18 09:30 Lisseth Sellers CST 03/22/18 14:43 [facility] Inpatient Patient Summaryon 03-20-2018 [facility] Inst[facility] INFORMATION Name: ANGELIQUE MELO PHYSICIANS Admitting Physician: Gala DESOUZA MD Physician: Gala DESOUZA MD PCP: Cruzito Thomason MD Diagnosis: Colon polyp Comment: PATIENT EDUCATION INFORMATIONInstructions:Colon oscopy, Care After Surgery Salam (CUSTOM); Colon PolypsMedication Leaflets:Follow up:With: Address: When: [place] [address] Business (1) Within 5 to 7 days Comments: Call for any problems. Call for followup appointment MEDICATION LISTComment: Normal [facility] Main OR PACU I Recordon 02-26 Main OR PACU I Record PACU Phase I Document Type FT Summary Primary Physician: Gala DESOUZA MD Finalized Date/Time: 03/20/18 10:19:08 Pt. Name: ANGELIQUE MELO Bernie/Sex: 1965 Female Med Rec #: [id number] Physician: Gala DESOUZA MD Financial #: [id number] Pt. Type: O Room/Bed: / Admit/Disch: 03/20/18 [...] By: Katerin Joe RN 03/20/18 10:19 Normal [facility] Main OR Preoperative Recordo n 03-20-2018 Main OR Preoperative Record Holding Area Document Type FT Summary Primary Physician: Gala DESOUZA MD Finalized Date/Time: 03/20/18 08:17:50 Pt. Name: LORIE ANGELIQUEALEA Gibbs/Sex: 1965 Female Med Rec #: [id number] Physician: Gala DESOUZA MD Financial #: [id number] Pt. Type: O Room/Bed: / Admit/Disch: 03/20/18 [...] By: Zelda Bautista RN 03/20/18 08:17 Normal [facility] Operative Reporton --201 8 Operative Report [...] tolerated the procedure well [facility].Gala Desouza M.D.lkrDictated: 03/20/2018 #[id number]: 03/20/2018 #[id number]: Alex Thomason M.D.Gala Desouza M.D. [facility] Comment on above: Result Comment: Elec [...] 06/05/2012 Document Reviewed: 05/23/2012ExitCare? Patient Information ?2014 [employer]. This information is not intended to replace advice given to you by your health care provider. Make sure you discuss any questions you have with your health care provider. Normal [facility] Progress Note-Physicianon Protein mass conc Patient: [...] All ProblemsResolved: Polyp colon / SNOMED CT [id number] Physical Examination Intake and Output Denies significant [...] pain . Respiratory: Adequate air exchange with baptism of preoperative function.. Cardiovascular: Cardiovascular function is stable and has returned to preoperative levels.. Neurologic: Pt has returned to preoperative baseline.. Review / Management Condition: Stable. Assessment Anesthetic outcome No anesthetic complications noted. Plan Transfer/ Discharge: Patient can be discharged from PACU when criteria met. Condition good. Normal [facility] Comment on above: Result Comment: Elec tronically [...] Results review: No qualifying data available. Plan [place] [employer] of Anesthesiologists (ASA) physical status classification: Class II. Anesthetic Preoperative Plan Anesthesia: Monitored anesthesia care and general anesthesia if required.. Anesthetic plan, risks, benefits, and alternatives discussed with the patient and/or family. Pt. and/or family present and agree to proceed as planned.. Discussed the importance of abstaining from tobacco products, and offered counseling if desired.. Normal [facility] Comment on above: Result Comment: Elec tronically Signed By: Ben Deal JR, DO.sydni\Date and Time Signed: 03/20/18 08:25 EST Vital Signs Date Time Vital Sign Value Performing Clinician Facility 12-29-2020 10:150400 Body height 177.8 cm Chhaya Spivey Other [facility] Other 12-29-2020 10:15-0400 Body mass index (BMI) [Ratio] 31.56 kg/m2 Chhaya Spivey Other [facility] Other 12-29-2020 10:15-0400 Body temperature 98.2 [degF] Chhaya Spivey Other [facility] Other 12-29-2020 10:15-0400 Body weight 99.79 kg Chhaya Spivey Other [facility] Other 12-29-2020 10:15-0400 SaO2% (BldA) [Mass fraction] 97 % Chhaya Spivey Other [facility] Other Encounters Encounter Date Encounter Type Care Provider Facility Start: 12-12-2023 End: 12-12-2023 ambulatory [facility] Start: 12-09-2023 End: 12-09-2023 ambulatory [facility] Start: 12-02-2023 End: 12-02-2023 ambulatory [facility] Start: 11-22-2023 End: 11-22-2023 ambulatory [facility] Start: 11-14-2023 End: 11-14-2023 ambulatory [facility] Start: 11-02-2023 End: 11-02-2023 ambulatory [facility] Start: 10-25-2023 ambulatory [facility] Start: 10-13-2023 End: 10-13-2023 Evaluation and management of inpatient [facility] Start: 10-10-2023 End: 10-12-2023 [facility] Start: 10-05-2023 End: 10-05-2023 ambulatory [facility] Start: 10-02-2023 End: 10-02-2023 ambulatory [facility] Start: 09-30-2023 End: 09-30-2023 ambulatory [facility] Start: 09-26-2023 End: 09-26-2023 [facility] [place] [facility] Start: 09-26-2023 Encounter for other preprocedural examination ALEX THOMASON [facility] Start: 09-19-2023 End: 09-19-2023 ambulatory [place] [facility] Start: 08-25-2023 End: 08-25-2023 ambulatory ALEX THOMASON [facility] Start: 07-25-2023 End: 07-25-2023 ambulatory [place] HSI[facility] Start: 07-25-2023 Encounter for other preprocedural examination GIGI [facility] Start: 07-21-2023 End: 07-21-2023 ambulatory ALEX THOMASON [facility] Start: 07-07-2023 End: 07-07-2023 ambulatory [facility] Start: 06-10-2023 End: 06-10-2023 ambulatory GIGI [facility] Start: 05-23-2023 Orders Only Valentin Velarde MD Work Phone: [facility] [place] - Neuro[facility]iology Start: 04-21-2023 End: 04-21-2023 ambulatory ALEX THOMASON [facility] Start: 03-02-2023 Telephone encounter Татьяна Osborn [facility] Comment on above: Post-op Craniotomy Start: 08-02-2022 End: 08-02-[address] ALEX THOMASON . Facility:[facility] Start: 03-26-2022 Encounter for genera l adult medical examination without abnormal findings DR ALEX THOMASON . [facility] Start: 03-24-2022 End: 03-25-[address] ALEX [...] End: 05-11-2020 Patient encounter procedure ALEX THOMASON [facility] Start: 05-08-2020 End: 05-10-2020 Subsequent hospital visit by physician [facility] Mri Rm [address] [facility] MRI Comment on above: Right knee pain, uns pecified chronicity Start: 03-20-2018 End: 03-21-2018 Patient encounter procedure Gala Desouza Facility:[facility] Procedures Date Procedure Procedure Detail Performing Clinician Start: 07-07-2023 Follow-up visit Follow-up SE[facility] G[facility] Start: 05-08-2020 Mri any jt lower ext rem w/o contrast matrl Alex Thomason Work Phone: Plan of Treatment Date Care Activity Detail Author Start: 03-10-2024 Tobacco Screening Tobacco Screening [facility] Start: 03-07-2024 Adult BMI Screening Adult BMI Screening [facility] Start: 07-21-2023 End: 07-21-2023 Patient encounter procedure 07/21/2023 9:30 AM EDT Appointment [facility] - Neurophysiology [address] [place] [address] [facility] - Neurophysiology Start: 07-07-2023 End: 07-07-2023 [facility] Start: 06-10-2023 End: 06-10-2023 Patient encounter procedure 06/10/2023 10:00 AM EDT Appointment [facility] [address] [place] [id number] [facility] Start: 04-21-2023 End: 04-21-2023 Patient encounter procedure 04/21/2023 9:30 AM EST Appointment [facility] - Neurophysiology [address] [place] [address] [facility] Start: 11-26-2022 Influenza vaccination [facility] Start: 11-27-2019 Influenza vaccination Flu vaccine (#1) [facility] Phone: Start: 06-27-2013 Screening for malignant neoplasm of breast Breast cancer screen [facility] Phone: Start: 06-27-2013 Screening for malignant neoplasm of colon Colon cancer screen colonoscopy [facility] Phone: Start: 06-27-2013 Shingles Vaccine (1 of 2) Shingles Vaccine (1 of 2) [facility] Phone: Start: 2003 Lipid panel Lipid screen [facility] Phone: Start: 06-27-1984 Screening for malignant neoplasm of cervix Cervical cancer screen [facility] Phone: Start: 06-27-1982 Administration of varicella zoster vaccine Zoster (Shingles) Vaccine (1 of 2) [facility] Start: 06-27-1982 DTaP,Tdap and Td Vaccines (1 - Tdap) DTaP,Tdap and Td Vaccines (1 - Tdap) [facility] Start: 06-27-1982 DTaP/Tdap/Td vaccine (1 - Tdap) DTaP/Tdap/Td vaccine (1 - Tdap) [facility] Phone: Start: 06-27-1981 Adult BMI Follow Up Plan Adult BMI Follow Up Plan [facility] Start: 06-27-1978 HIV screening HIV screen [facility] Phone: Start: 1975 Depression Screening [facility]ening [facility] Start: 1965 Hepatitis C screening Hepatitis C screen [facility] Phone: Start: 1965 Tobacco Counseling [facility] End: 03-12-2024 Botox Injection For Cervical Dystonia Botox Injection For Cervical Dystonia Neurology Routine Every 3 Months for 4 Occurrences starting 05/23/2023 until 03/12/2024 [facility] Work Phone: Comment on above: Every 3 Months for 4 Occurrences startin g 05/23/2023 until 03/12/2024 Payers Date Payer Category Payer Worker's Compensation WORKER'S C OMPENSATION WORKER'S [id number] ONLY [id number] 2018-Present [id number] [id number] 2018 Unknown 1965 Unknown [id number] 2.16.840.1.689899.3.579.2. 176 1965 Unknown [id number] 2.16.840.1.388974.3.579.2. 593 1965 Unknown [id number] 2.16.840.1.515104.3.579.2. 593 1965 Unknown [id number] 2.16.840.1.403874.3.579.2. 593 1965 Unknown [id number] 2.16.840.1.295499.3.579.2. 727 1965 Unknown [id number] 2.16.840.1.139183.3.579.2. 1286 1965 Unknown [id number] 2.16.840.1.699029.3.579.2. 1286 1965 Unknown [id number] 2.16.840.1.022956.3.579.2. 1286 1963 Unknown [id number] 2.16.840.1.157367.3.579.2. 1286 1965 Unknown [id number] 2.16.840.1.377213.3.579.2. 1286 1965 Unknown [id number] 2.16.840.1.204389.3.579.2. 1286 1965 Unknown [id number] 2.16.840.1.266208.3.579.2. 1285 1965 Unknown [id number] 2.16.840.1.682793.3.579.2. 1285 1965 Unknown [id number] 2.16.840.1.264061.3.579.2. 1285 1963 Unknown [id number] 2.16840.1.932416.3.579.2. 1285 1963 Unknown [id number] 2.840.1.135272.3.579.2. 1285 1963 Unknown [id number] 2.840.1.388121.3.579.2. 1285 1963 Unknown [id number] 2.840.1.576547.3.579.2. 1285 1963 Unknown [id number] 2.840.1.399611.3.579.2. 1285 1963 Unknown [id number] 2.840.1.988685.3.579.2. 1285 1963 Unknown [id number] 2.840.1.115383.3.579.2. 1285 1963 Unknown [id number] 2.840.1.020180.3.579.2. 1285 1963 Unknown [id number] 2.840.1.789378.3.579.2. 1285 1965 Unknown [id number] 2.840.1.117903.3.579.2. 1285 1963 Unknown [id number] 2.840.1.929367.3.579.2. 1285 1963 Unknown [id number] 2.840.1.759640.3.579.2. 1285 1965 Unknown [id number] 2.840.1.889811.3.579.2. 1285 1959 Unknown [id number] Self-pay Self Pay [id number] Social History Date Type Detail Facility Tobacco smoking stat us PRIS Unknown if ever smoked [facility] Phone: Start: 1965 Sex Assigned At Not on file [facility] [employer] Work Phone: Exposure to SARS-CoV -2 (event) Not sure [employer] Work Phone: Start: 06-06-2020 End: 06-06-2020 Tobacco smoking status NHIS Smoker (finding) [facility] Start: 1965 Sex Assigned At Female F [facility] Start: 05-08-2020 End: 03-10-2023 [facility] Start: 02-24-2023 [facility] History of tobacco use Cigarette Smoker P [facility] Start: 02-24-2023 Tobacco use and exposure [facility] of smokeless tobacco [facility] Start: 02-24-2023 End: 03-10-2023 Alcohol intake Current drinker of [facility] (finding) [facility] Start: 05-08-2020 End: 03-10-2023 History of Social function [facility] Are you worried or concerned that in the next two months you may not have stable housing that you own, rent or stay in as a part of a household? No [facility] Start: 01-12-2019 Alcohol Comment once in a great whil e [facility] Medical Equipment Procedure Code Equipment Code Equipment Origin al Text Equipment Identifier Dates Gft Bn Ricardo Cnc 15cc Frzdr - [id number] - [id number] Start: 01-12-2019 Patch Dura 16x10 cm Drgrd Bvn Pricrd Strl Lf - [id number] Start: 12-26-2022 Plt Bn 41mm +20d Oblq L 3 - Sna - [id number] Start: 01-12-2019 Scr Bn Ricardo 2.4m m 16mm Strdrv - Sna - [id number] Start: 01-12-2019 Goals Date Patient Goal [...] call today 03/02/23 8:46 from Abi at [facility] who stated that patient had craniotomy a couple months ago and she's noticed in the last few days that it is more swollen. She wanted to know if this was measured after she had the procedure and is requesting call back for medical advice. Please call back and advise, direct callback#: [phone]. Will need to call neurosurgery. Called Abi [...] CT scan that is scheduled on 06/10/2023. [facility] did inform her that neurosurgery was not [...] appt to the same day. Please advise. Scraper Hand received a call from Daysi with [facility]. Daysi is asking if appointment that is scheduled for 05/05/2023 at 9:30 could please be scheduled on the same day with Neurosurgery appointment. Appointment with Neurosurgery is 06/14/2023 at 2:30pm. Daysi is requesting appointment to either before 2:30pm or after, as long as it is on the same day. Please Advise. Daysi is requesting a call back [phone] to further discuss. Thank you so much Called facility back and it rang until it changed to busy tone Called transportation back and no answer This patient follows care under the fellows and they are only here on afternoons. Called [facility] Lashaun answered they're trying to make the appts on the same day so that its easier on the patient. She is going to talk to Dr Hutchinson office and see if they have something they may correlate on a Received call today 04/07/23 1:43 from [facility] at [facility] is requesting a call back in regard to previous message. She said that she got some dates/times from the other provider's office. Please call back and advise, callback#: [phone]. Spoke with Lashaun and correlated Dr Hutchinson appt on the same day as ours documented in this encounter [facility] 03-02-2023 Telephone encount er Note Received call today 03/02/23 8:46 from Abi at [facility] who stated that patient had craniotomy a couple months ago and she's noticed in the last few days that it is more swollen. She wanted to know if this was measured after she had the procedure and is requesting call back for medical advice. Please call back and advise, direct callback#: [phone]. [facility] 03-02-2023 Telephone encount er Note Will need to call neurosurgery. [facility] 03-02-2023 Telephone encount er Note Called Abi and informed her that if it is about surgery site, she should call neurosurgery and provided the number for it. She voiced understanding. [facility] 03-02-2023 Telephone encount er Note Daysi with Transportation is asking for the appointment (05/05/2023) with stroke to rescheduled on same day with the patients appointment (06/09/2023) with neurosurgery. Also, she is asking for the appointment to be schedule after the CT scan that is scheduled on 06/10/2023. Scra[facility] Hand did inform her that neurosurgery was not in our office, she asked to clinical staff to make arrangements with neurosurgery. Please advise [facility] 03-02-2023 Telephone encount er Note Daysi contacted our office back stating that both appts (neurology and neurosurgery) need to be moved to after the appt for her CT scan which is on 06/10/2023. She was transferred to Neurosurgery to reschedule that appt and once that appt is rescheduled we could possibly reschedule our appt to the same day. Please advise. [facility] 03-02-2023 Telephone encount er Note Scraper Hand received a call from Daysi with [facility]. Daysi is asking if appointment that is scheduled for 05/05/2023 at 9:30 could please be scheduled on the same day with Neurosurgery appointment. Appointment with Neurosurgery is 06/14/2023 at 2:30pm. Daysi is requesting appointment to either before 2:30pm or after, as long as it is on the same day. Please Advise. Daysi is requesting a call back [phone] to further discuss. Thank you so much [facility] 03-02-2023 Telephone encount er Note Called facility back and it rang until it changed to busy tone Called transportation back and no answer This patient follows care under the fellows and they are only here on afternoons. [facility] [employer] [facility] 03-02-2023 Telephone encount er Note Called facility Lashaun answered they're trying to make the appts on the same day so that its easier on the patient. She is going to talk to Dr Hutchinson office and see if they have something they may correlate on a [facility] [employer] [facility] 03-02-2023 Telephone encount er Note Received call today 04/07/23 1:43 from Tere at [facility] and [facility] who is requesting a call back in regard to previous message. She said that she got some dates/times from the other provider's office. Please call back and advise, callback#: [phone]. [facility] 03-02-2023 Telephone encount er Note Spoke with Lashaun and correlated Dr Hutchinson appt on the same day as ours [facility] [facility] 12-29-2020 Evaluation note Encounter Date Diagnosis Assessment [...] Patient care instructions given in writting by [facility] Home document. 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 DNR Physician Order 01/18/2023 4:20 PM Latest Code Status on File Code Status Date Activated Date Inactivated Comments DNR Comfort Care Arrest (DNR-CCA) [place] 12/31/2022 11:45 AM 01/11/2023 7:55 PM Code Status History Code Status Date Activated Date Inactivated Comments Full Code 12/26/2022 4:32 AM 12/31/2022 11:45 AM Documents on File Type Date Recorded 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 DNR Physician Order 01/18/2023 4:20 PM Latest Code Status on File Code Status Date Activated Date Inactivated Comments DNR Comfort Care Arrest (DNR-CCA) [place] 12/31/2022 11:45 AM 01/11/2023 7:55 PM Code Status History Code Status Date Activated Date Inactivated Comments Full Code 12/26/2022 4:32 AM 12/31/2022 11:45 AM Reason for Referral Status Reason Specialty Diagnoses / Procedures Referre d By Contact Referred To Contact Closed Radiology Diagnoses Right knee pain, unspecified chronicity Procedures MRI KNEE RIGHT WO CONTRAST Alex Thomason MD [facility] [place] [address] Specialty Diagnoses / Procedures Referred By Contac t Referred To Contact Procedures Botox Injection For Cervical Dystonia Valentin Velarde MD [address] [facility], [address] [place] [address] Referral ID Status Reason Start Date Expiration Date V isits Requested Visits Authorized [id number] Pending Review 05/23/2023 05/22/2024 4 4 Assessments Diagnosis Right knee pain, unspecified chronicity Chief Complaint and Reason for Visit Chief Complaint Knee Pain Chief Complaint Knee Pain Knee Pain Additional Source Comments INFORMATION SOURCE (unrecogn ized section and content) DATE CREATED AUTHOR 03/30/2018 [employer] [facility] DATE CREATED AUTHOR AUTHOR'S ORGANIZ ATION 05/12/2020 [facility] DATE CREATED AUTHOR AUTHOR'S ORGANIZ ATION 03/16/2021 [facility] DATE CREATED AUTHOR AUTHOR'S ORGANIZ ATION 08/03/2022 [facility] DATE CREATED AUTHOR AUTHOR'S ORGANIZ ATION 11/05/2023 [facility] DATE CREATED AUTHOR AUTHOR'S ORGANIZ ATION 12/11/2023 [facility] DATE CREATED AUTHOR AUTHOR'S ORGANIZ ATION 12/13/2023 [facility] Reason for Visit (unrecogniz ed section and content) Status Reason Specialty Diagnoses / Procedures Referre d By Contact Referred To Contact Closed Radiology Diagnoses Right knee pain, unspecified chronicity Procedures MRI KNEE RIGHT WO CONTRAST Alex Thomason MD [address] [place] [address] Reason Onset Date Comments Post-op Craniotomy 03/02/2023 Care Teams (unrecognized sec tion and content) 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 [facility] [employer] [facility] provides no warranty or guarantee of the accuracy or completeness of information in this document.
== END 2024-01-19 07:46 | disposition home or self-care (01) ==
LOC: US 07:46
PROVIDERS: PCP Family Medicine; Visit Provider Family Medicine
DX: E07.9 Disorder of thyroid, unspecified (principal); N28.89 Other specified disorders of kidney and ureter; E04.2 Nontoxic multinodular goiter; M85.832 Other specified disorders of bone density and structure, left forearm
CPT/HCPCS: 73090; 76536

== ENCOUNTER 2024-01-20 08:51 | Outpatient (OUT) | payer OTHER, SELFPAY ==
--- NOTE | 2024-01-20 | XR_ITS ---
The [address] [address] Patient Name: ROXANNA MELO MRN: [id number] date: 1965 Sex: F Assigned Patient Location: MRI Current Patient Location: MRI Accession/Order Number: [id number] Exam Date: 01/20/2024 10:10 Report Date: 01/20/2024 10:53 At the request of: RAMA PRITCHETT Procedure: XR skull <4V EXAMINATION: XR skull <4V HISTORY: pre MRI history of brain surgery COMPARISON: No relevant comparison available. FINDINGS: ORBITS: No metallic foreign body within the orbits. OTHER: Multiple metallic plates along right side of calvarium securing prior craniotomy. XR/XR skull <4V IMPRESSION: 1. No metallic foreign body within orbits. 2. Multiple metallic plates along right side of calvarium. Electronically authenticated by: MARGARITA LESLIE Date: 01/20/2024 10:53
--- OUTSIDE RECORDS SUMMARY | 2024-01-20 09:12 | XMS_ITS | CCD ---
Author Organization [facility] Care Team Providers Care Food Storeroom Clerk Name Role Phone Nill, Gala R Unavailable Unavailable Nill, Gala R Unavailable Unavailable Nill, Gala R Unavailable Unavailable Alex [phone] UNKNOWN Unavailable Unavailable ALEX THOMASON Referring Unavailable ALEX THOMASON Primary Care Unavailable Alex Thomason Primary Care Provider Alex Thomason Primary Care Provider [phone] eSsar Gutiérrez Attending Provider Chhaya Spivey Unavailable SHREYAS [...] Unavailable HOY ., DR ONTIVEROS Consulting Unavailable FLOM, DR FRANCES Del Valle Consulting Unavailable FRANCES [...] Medication Allergies] Propensity to adverse reactions (disorder) [facility] Repository Medications Current Medications Medication Drug Class(es) [...] 9:50am docusate sodium 50 mg / sennosides, skilled nursing 8.6 mg oral tablet (2 sources) take [...] needed. 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 CT CTA CHESTon 12-06-2023 CT CTA [...] Art Gale on 12/06/2023 2:[address] [facility] BASIC METABOLIC PANLon 10-11 Anion gap [Moles/Vol] 7 mmol/L Normal 5-15 [facility] Comment on above: Performed By: #### C BCA, BMP #### [facility] ([id number]) [address], [address] [place] [address] Calcium [Mass/Vol] 8.9 mg/dL Normal 8.5-10.5 [facility] Comment on above: Performed By: #### C BCA, BMP #### [facility] ([id number]) [address], [address] [place] [address] Chloride [Moles/Vol] 105 mmol/L Normal 98-109 [facility] Comment on above: Performed By: #### C MINH, BMP #### [facility] ([id number]) [address], [address] [place] [address] CO2 [Moles/Vol] 27 mmol/L Normal 22-32 [facility] Comment on above: Performed By: #### C BCA, BMP #### [facility] ([id number]) [address], [address] [place] [address] Creatinine [Mass/Vol] 0.50 mg/dL Normal 0.40-1.00 [facility] Comment on above: Result Comment: METH OD TRACEABLE TO IDMS STANDARD Performed By: #### C MINH, BMP #### [facility] ([id number]) [address], [address] [place] [address] eGFR (CKD-EPI) NON-RACE DEPENDENT >90 Normal >59 [facility] Comment on above: Result Comment: Reported eGFR is based on the CKD-EPI 2020 equation that does not use a race coefficient. Performed By: #### C BCA, BMP #### [facility] ([id number]) [address], [address] [place] [address] Glucose [Mass/Vol] 99 mg/dL Normal 65-99 [facility] Comment on above: Performed By: #### C BCA, BMP #### [facility] ([id number]) [address], [address] [place] [address] Potassium [Moles/Vol] 3.6 mmol/L Normal 3.5-5.0 [facility] Comment on above: Performed By: #### C BCA, BMP #### [facility] ([id number]) [address], [address] [place] [address] Sodium [Moles/Vol] 139 mmol/L Normal 134-146 [facility] Comment on above: Performed By: #### C BCA, BMP #### [facility] ([id number]) [address] [place] [address] Urea nitrogen [Mass/Vol] 15 mg/dL Normal 5-23 [facility] Comment on above: Performed By: #### C BCA, BMP #### [facility] ([id number]) [address] [place] [address] CBC AND AUTO DIFFon 10-12-19 Erythrocyte distribution width (RBC) [Ratio] 14.3 % Normal 11.5-15.0 [facility] Comment on above: Performed By: #### C BCA, BMP #### [facility] ([id number]) [address], [address] [place] [address] Hematocrit (Bld) [Volume fraction] 27.9 % Low 35-47 [facility] Comment on above: Performed By: #### C BCA, BMP #### [facility] ([id number]) [address], [address] [place] [address] Hemoglobin (Bld) [Mass/Vol] 9.5 g/dL Low 11.7-15.5 [facility] Comment on above: Performed By: #### C BCA, BMP #### [facility] ([id number]) [address], [facility] [address] [place] [address] Lymphocytes (Bld) [#/Vol] 2.9 10*3/uL Normal 1.0-3.5 [facility] Comment on above: Performed By: #### C BCA, BMP #### [facility] ([id number]) [address], [address] [place] [address] Lymphocytes/100 WBC (Bld) 42.0 % Normal [facility] Comment on above: Performed By: #### C MINH, BMP #### [facility] ([id number]) [address], [address] [place] [address] MCH (RBC) [Entitic mass] 40.3 pg High 27-34 [facility] Comment on above: Performed By: #### C MINH, BMP #### [facility] ([id number]) [address] [place] [address] MCHC (RBC) [Mass/Vol] 34.1 g/dL Normal 32-36 [facility] Comment on above: Performed By: #### C MINH, BMP #### [facility] ([id number]) [address], [address] [place] [address] MCV (RBC) [Entitic vol] 118 fL High 80-100 [facility] Comment on above: Performed By: #### C MINH, BMP #### [facility] ([id number]) [address] [place] [address] Monocytes (Bld) [#/Vol] 0.3 10*3/uL Normal 0-0.9 [facility] Comment on above: Performed By: #### C MINH, BMP #### [facility] ([id number]) [address], [address] [place] [address] Monocytes/100 WBC (Bld) 4.0 % Normal [facility] Comment on above: Performed By: #### C BCA, BMP #### [facility] ([id number]) [address], [address] [place] [address] Neutrophils (Bld) [#/Vol] 3.8 10*3/uL Normal 1.5-6.6 [facility] Comment on above: Performed By: #### C MINH, BMP #### [facility] ([id number]) [address], [address] [place] [address] OVALOCYTE 1+ Abnormal NONE [facility] Comment on above: Performed By: #### C MINH, BMP #### [facility] ([id number]) [address], [address] [place] [address] Platelet mean volume (Bld) [Entitic vol] 8.4 fL Normal 7-12 [facility] Comment on above: Performed By: #### C MINH, BMP #### [facility] ([id number]) [address], [address] [place] [address] Platelets (Bld) [#/Vol] 200 10*3/uL Normal 150-450 [facility] Comment on above: Performed By: #### C MINH, BMP #### [facility] ([id number]) [address], [address] [place] [address] POLYCHROMASIA 1+ Abnormal NONE [facility] Comment on above: Performed By: #### C MINH, BMP #### [facility] ([id number]) [address] [place] [address] RBC COUNT 2.36 X10E12/L Low 3.80-5.20 [facility] Comment on above: Performed By: #### C MINH, BMP #### [facility] ([id number]) [address], [address] [place] [address] SEG NEUTROPHIL 54.0 % Normal [facility] Comment on above: Performed By: #### C MINH, BMP #### [facility] ([id number]) [address] [place] [address] WBC (Bld) [#/Vol] 7.0 10*3/uL Normal 4.0-11.0 [facility] Comment on above: Performed By: #### C MINH, BMP #### [facility] ([id number]) [address], [address] [place] [address] BASIC METABOLIC PANLon 10-10 Anion gap [Moles/Vol] 9 mmol/L Normal 5-15 [facility] Comment on above: Performed By: #### C BC, BMP #### [facility] ([id number]) [address], [address] [place] [address] Calcium [Mass/Vol] 9.0 mg/dL Normal 8.5-10.5 [facility] Comment on above: Performed By: #### C BC, BMP #### [facility] ([id number]) [address], [address] [place] [address] Chloride [Moles/Vol] 105 mmol/L Normal 98-109 [facility] Comment on above: Performed By: #### C BC, BMP #### [facility] ([id number]) [address], [address] [place] [address] CO2 [Moles/Vol] 25 mmol/L Normal 22-32 [facility] Comment on above: Performed By: #### C BC, BMP #### [facility] ([id number]) [address], [address] [place] [address] Creatinine [Mass/Vol] 0.45 mg/dL Normal 0.40-1.00 [facility] Comment on above: Result Comment: METH OD TRACEABLE TO IDMS STANDARD Performed By: #### C BC, BMP #### [facility] ([id number]) [address] [address] [place] [address] eGFR (CKD-EPI) NON-RACE DEPENDENT >90 Normal >59 [facility] Comment on above: Result Comment: Reported eGFR is based on the CKD-EPI 2020 equation that does not use a race coefficient. Performed By: #### C BC, BMP #### [facility] ([id number]) [address] [place] [address] Glucose [Mass/Vol] 127 mg/dL High 65-99 [facility] Comment on above: Performed By: #### C FLAKITO, BMP #### [facility] ([id number]) [address] [place] [address] Potassium [Moles/Vol] 3.6 mmol/L Normal 3.5-5.0 [facility] Comment on above: Performed By: #### C FLAKITO, BMP #### [facility] ([id number]) [address] [place] [address] Sodium [Moles/Vol] 139 mmol/L Normal 134-146 [facility] Comment on above: Performed By: #### Amanda FRAGA, BMP #### [facility] ([id number]) [address] [place] [address] Urea nitrogen [Mass/Vol] 15 mg/dL Normal 5-23 [facility] Comment on above: Performed By: #### Amanda FRAGA, BMP #### [facility] ([id number]) [address] [place] [address] COMPLETE BLOOD COUNTon 10-10 Erythrocyte distribution width (RBC) [Ratio] 14.1 % Normal 11.5-15.0 [facility] Comment on above: Performed By: #### Amanda FRAGA, BMP #### [facility] ([id number]) [address] [place] [address] Hematocrit (Bld) [Volume fraction] 30.6 % Low 35-47 [facility] Comment on above: Performed By: #### C FLAKITO, BMP #### [facility] ([id number]) [address], [address] [place] [address] Hemoglobin (Bld) [Mass/Vol] 10.6 g/dL Low 11.7-15.5 [facility] Comment on above: Performed By: #### C FLAKITO, BMP #### [facility] ([id number]) [address], [address] [place] [address] MCH (RBC) [Entitic mass] 40.5 pg High 27-34 [facility] Comment on above: Performed By: #### Amanda FRAGA, BMP #### [facility] ([id number]) [address], [address] [place] [address] MCHC (RBC) [Mass/Vol] 34.6 g/dL Normal 32-36 [facility] Comment on above: Performed By: #### C FLAKITO, BMP #### [facility] ([id number]) [address], [address] [place] [address] MCV (RBC) [Entitic vol] 117 fL High 80-100 [facility] Comment on above: Performed By: #### Amanda FRAGA, BMP #### [facility] ([id number]) [address], [address] [place] [address] Platelet mean volume (Bld) [Entitic vol] 8.1 fL Normal 7-12 [facility] Comment on above: Performed By: #### Amanda FRAGA, BMP #### [facility] ([id number]) [address], [address] [place] [address] Platelets (Bld) [#/Vol] 220 10*3/uL Normal 150-450 [facility] Comment on above: Performed By: #### Amanda FRAGA, BMP #### [facility] ([id number]) [address], [address] [place] [address] RBC COUNT 2.62 X10E12/L Low 3.80-5.20 [facility] Comment on above: Performed By: #### Amanda FRAGA, BMP #### [facility] ([id number]) [address], [address] [place] [address] WBC (Bld) [#/Vol] 5.3 10*3/uL Normal 4.0-11.0 [facility] Comment on above: Performed By: #### C BC, BMP #### [facility] ([id number]) [address] [facility], [address] [place] [address] CT BRAIN WO CONTon CT BRAIN WO [...] Jeffers MD on 10/11/2023 2:29 AM Normal [facility] Glucose Glucometer (BldC) [M ass/Vol]on 10-10-2023 Glucose [Mass/Vol] 133 mg/dL High 65-99 [facility] BASIC METABOLIC PANLon 10-04 Anion gap [Moles/Vol] 8 mmol/L Normal 5-15 [facility] Comment on above: Performed By: #### U A #### [facility] ([id number]) [address] [place] [address], [place] [address] Calcium [Mass/Vol] 9.8 mg/dL Normal 8.5-10.5 [facility] Comment on above: Performed By: #### U A #### [facility] ([id number]) [address] [place] [address] Chloride [Moles/Vol] 104 mmol/L Normal 98-109 [facility] Comment on above: Performed By: #### U A #### [facility] ([id number]) [address] [place] [address] CO2 [Moles/Vol] 28 mmol/L Normal 22-32 [facility] Comment on above: Performed By: #### U A #### [facility] ([id number]) [address] [place] [address] Creatinine [Mass/Vol] 0.63 mg/dL Normal 0.40-1.00 [facility] Comment on above: Result Comment: METH OD TRACEABLE TO IDMS STANDARD Performed By: #### U A #### [facility] ([id number]) [address] [place] [address] [place] [address] eGFR (CKD-EPI) NON-RACE DEPENDENT >90 Normal >59 [facility] Comment on above: Result Comment: Reported eGFR is based on the CKD-EPI 2020 equation that does not use a race coefficient. Performed By: #### U A #### [facility] ([id number]) [address] [place] [address] Glucose [Mass/Vol] 92 mg/dL Normal 65-99 [facility] Comment on above: Performed By: #### U A #### [facility] ([id number]) [address] [place] [address] Potassium [Moles/Vol] 4.7 mmol/L Normal 3.5-5.0 [facility] Comment on above: Performed By: #### U A #### [facility] ([id number]) [address] [place] [address] Sodium [Moles/Vol] 140 mmol/L Normal 134-146 [facility] Comment on above: Performed By: #### U A #### [facility] ([id number]) [address] [place] [address] Urea nitrogen [Mass/Vol] 18 mg/dL Normal 5-23 [facility] Comment on above: Performed By: #### U A #### [facility] ([id number]) [address] [place] [address] BLOOD CULTUREon 10-05-2023 Bacteria identified Aer cx Nom (Bld) SPECIMEN NOTES SUBOPTIMAL VOLUME OF BLOOD COLLECTED, RESULTS MAY BE AFFECTED. CULTURE RESULTS NO GROWTH [address] [facility] Comment on above: Performed By: #### U A #### [facility] ([id number]) [address] [place] [address] Bacteria identified Aer cx Nom (Bld) SPECIMEN NOTES RIGHT ANTECUBITAL CULTURE RESULTS NO GROWTH [address] [facility] Comment on above: Performed By: #### U A #### [facility] ([id number]) [address] [place] [address] CBC AND AUTO DIFFon 10-05-19 24 Erythrocyte distribution width (RBC) [Ratio] 14.6 % Normal 11.5-15.0 [facility] Comment on above: Performed By: #### P INR, 07923-8 #### [facility] ([id number]) [address] [place] [address] #### CBCA, 23642-2, BMP, 1987- #### [facility] ([id number]) [address] [facility], [address] [place] [address] Hematocrit (Bld) [Volume fraction] 36.6 % Normal 35-47 [facility] Comment on above: Performed By: #### P INR, 42155-0 #### [facility] ([id number]) [address] [place] [address] #### CBCA, 24573-1, [facility], 1987-07 #### [facility] ([id number]) [address] [place] [address] Hemoglobin (Bld) [Mass/Vol] 12.3 g/dL Normal 11.7-15.5 [facility] Comment on above: Performed By: #### P INR, 22839-0 #### [facility] ([id number]) [address] [place] [address] #### CBCA, 03284-8, [facility], 1987-07 #### [facility] ([id number]) [address] [place] [address] Lymphocytes (Bld) [#/Vol] 1.7 10*3/uL Normal 1.0-3.5 [facility] Comment on above: Performed By: #### P INR, 41297-8 #### [facility] ([id number]) [address] [place] [address] #### CBCLilian, 95400-6, [facility], 1987-07 #### [facility] ([id number]) [address] [place] [address] Lymphocytes/100 WBC (Bld) 59.0 % Normal [facility] Comment on above: Performed By: #### P INR, 35507-4 #### [facility] ([id number]) [address] [place] [address] #### CBCA, 81049-2, BMP, 1987-07 #### [facility] ([id number]) [address] [place] [address] MCH (RBC) [Entitic mass] 39.7 pg High 27-34 [facility] Comment on above: Performed By: #### P INR, 85583-2 #### [facility] ([id number]) [address] [place] [address] #### CBCA, 48869-0, BMP, 1987-07 #### [facility] ([id number]) [address] [place] [address] MCHC (RBC) [Mass/Vol] 33.5 g/dL Normal 32-36 [facility] Comment on above: Performed By: #### P INR, 43133-1 #### [facility] ([id number]) [address] [place] [address] #### CBCA, 55156-9, BMP, 1987-07 #### [facility] ([id number]) [address] [place] [address] MCV (RBC) [Entitic vol] 119 fL High 80-100 [facility] Comment on above: Performed By: #### P INR, 09045-1 #### [facility] ([id number]) [address] [place] [address] #### CBCA, 89837-2, BMP, 1987-07 #### [facility] ([id number]) [address] [place] [address] Monocytes (Bld) [#/Vol] 0.2 10*3/uL Normal 0-0.9 [facility] Comment on above: Performed By: #### P INR, 68532-1 #### [facility] ([id number]) [address] [place] [address] #### CBCA, 44035-3, BMP, 1987-07 #### [facility] ([id number]) [address] [place] [address] Monocytes/100 WBC (Bld) 7.0 % Normal [facility] Comment on above: Performed By: #### P INR, 43010-5 #### [facility] ([id number]) [address] [place] [address] #### CBCA, 06952-4, BMP, 1987-07 #### [facility] ([id number]) [address] [place] [address] Neutrophils (Bld) [#/Vol] 1.0 10*3/uL Low 1.5-6.6 [facility] Comment on above: Performed By: #### P INR, 03869-6 #### [facility] ([id number]) [address] [place] [address] #### CBCA, 64983-8, BMP, 1987-07 #### [facility] ([id number]) [address] [place] [address] Platelet mean volume (Bld) [Entitic vol] 8.7 fL Normal 7-12 [facility] Comment on above: Performed By: #### P INR, 32370-8 #### [facility] ([id number]) [address] [place] [address] #### CBCA, 95384-0, BMP, 1987-07 #### [facility] ([id number]) [address] [place] [address] Platelets (Bld) [#/Vol] 290 10*3/uL Normal 150-450 [facility] Comment on above: Performed By: #### P INR, 79777-9 #### [facility] ([id number]) [address] [place] [address] #### CBCA, 21462-8, BMP, 1987-07 #### [facility] ([id number]) [address] [place] [address] RBC COUNT 3.08 X10E12/L Low 3.80-5.20 [facility] Comment on above: Performed By: #### P INR, 31787-0 #### [facility] ([id number]) [address] [place] [address] #### CBCA, 64594-0, BMP, 1987-07 #### [facility] ([id number]) [address] [place] [address] RBC morphology finding Nom (Bld) NORMAL Normal [facility] Comment on above: Performed By: #### P INR, 82970-3 #### [facility] ([id number]) [address] [place] [address] #### CBCA, 45362-6, BMP, 1987-07 #### [facility] ([id number]) [address] [facility] [place] [address] SEG NEUTROPHIL 34.0 % Normal [facility] Comment on above: Performed By: #### P INR, 24493-2 #### [facility] ([id number]) [address] [place] [address] #### CBCA, 18189-7, BMP, 1987-07 #### [facility] ([id number]) [address] [facility] [place] [address] WBC (Bld) [#/Vol] 2.9 10*3/uL Low 4.0-11.0 [facility] Comment on above: Performed By: #### P INR, 28729-2 #### [facility] ([id number]) [address] [place] [address] #### CBCA, 84072-5, BMP, 1987-07 #### [facility] ([id number]) [address] [facility], [address] [place] [address] CRP [Mass/Vol]on 10-05-2023 C REACTIVE PROTEIN 0.1 mg/dL Normal 0.000-0.[address] [facility] Comment on above: Performed By: #### U A #### [facility] ([id number]) [address] [place] [address] ESR Photometric method (Bld) [Velocity]on 10-05-2023 ESR, ERYTHROCYTE SEDIMENTATION RATE 1 mm/h Normal 0-30 [facility] Comment on above: Performed By: #### U A #### [facility] ([id number]) [address] [place] [address] 30197 PROTIME AND INRon 10-05-2023 INR Coag (PPP) [Relative time] 1.0 {INR} Normal 0.8-1.1 [facility] Comment on above: Performed By: #### P INR, 85658-9 #### [facility] ([id number]) [address] [place] [address] #### CBCA, 89858-8, BMP, 1987-07 #### [facility] ([id number]) [address], [address] [place] [address] PT Coag (PPP) [Time] 12.1 s Normal 9.8-13.2 [facility] Comment on above: Result Comment: NEW REFERENCE RANGE Performed By: #### P INR, 67271-5 #### [facility] ([id number]) [address] [place] [address]29 #### CBCA, 64871-2, BMP, 1987-07 #### [facility] ([id number]) [address], [address] [place] [address] aPTT Coag (PPP) [Time]on aPTT Coag (Bld) [Time] 25 s Low 26-37 [facility] Comment on above: Result Comment: NEW REFERENCE RANGE Performed By: #### P INR, 60691-8 #### [facility] ([id number]) [address] [place] [address] 50584 #### CBCA, 73974-0, BMP, 1987- #### [facility] ([id number]) [address], [address] [place] [address] URINALYSISon 10-02-2023 Bilirubin Ql (U) Negative Normal NEG [facility] Comment on above: Performed By: #### U A #### [facility] ([id number]) [address] [place] [address] BLOOD/HGB Negative Normal NEG [facility] Comment on above: Performed By: #### U A #### [facility] ([id number]) [address] [place] [address] 87222 Color (U) YELLOW Normal YELLOW [facility] Comment on above: Performed By: #### U A #### [facility] ([id number]) [address] [place] [address] 86628 Glucose Ql (U) Negative Normal NEG [facility] Comment on above: Performed By: #### U A #### [facility] ([id number]) [address] [place] [address] 93562 Ketones Ql (U) Negative Normal NEG [facility] Comment on above: Performed By: #### U A #### [facility] ([id number]) [address] [place] [address] 11592 Leukocyte esterase Test strip Ql (U) Trace Abnormal NEG [facility] Comment on above: Performed By: #### U A #### [facility] ([id number]) [address] [place] [address] Nitrite Ql (U) Positive Abnormal NEG [facility] Comment on above: Performed By: #### U A #### [facility] ([id number]) [address] [place] [address]23 pH (U) 7.5 [pH] Normal 5.0-8.5 [facility] Comment on above: Performed By: #### U A #### [facility] ([id number]) [address] [place] [address] Protein Ql (U) Negative Normal NEG [facility] Comment on above: Performed By: #### U A #### [facility] ([id number]) [address] [place] [address]12 R.B.CELLS 0 /hpf Normal 0-5 [facility] Comment on above: Performed By: #### U A #### [facility] ([id number]) [address] [place] [address] 75[address] Specific gravity (U) [Rel density] 1.020 Normal 1.003-1.[address] [facility] Comment on above: Performed By: #### U A #### [facility] ([id number]) [address] [place] [address] 764[address] SQUAMOUS EPITHELIUM 12 /hpf High 0-5 [facility] Comment on above: Performed By: #### U A #### [facility] ([id number]) [address] [place] [address] [place] [address] TURBIDITY CLOUDY Abnormal CLEAR [facility] Comment on above: Performed By: #### U A #### [facility] ([id number]) [address] [place] [address] 486[address] Urobilinogen Qn (U) 1.0 {Tra'U}/dL Normal <1.1 [facility] Comment on above: Performed By: #### U A #### [facility] ([id number]) [address] [place] [address] [place] [address] W.B.CELLS 5 /hpf Normal 0-5 [facility] Comment on above: Performed By: #### U A #### [facility] ([id number]) [address] [place] [address] BASIC METABOLIC PANLon 09-29 Anion gap [Moles/Vol] 8 mmol/L Normal 5-15 [facility] Comment on above: Performed By: #### C BCA, BMP #### [facility] ([id number]) [address], [address] [place] [address] Calcium [Mass/Vol] 10.1 mg/dL Normal 8.5-10.5 [facility] [place] [facility] Comment on above: Performed By: #### C BCA, BMP #### [facility] ([id number]) [address], [address] [place] [address] Chloride [Moles/Vol] 104 mmol/L Normal 98-109 [facility] Comment on above: Performed By: #### C BCA, BMP #### [facility] ([id number]) [address], [address] [place] [address] CO2 [Moles/Vol] 28 mmol/L Normal 22-32 [facility] Comment on above: Performed By: #### C BCA, BMP #### [facility] ([id number]) [address], [address] [place] [address] Creatinine [Mass/Vol] 0.62 mg/dL Normal 0.40-1.00 [facility] Comment on above: Result Comment: METH OD TRACEABLE TO IDMS STANDARD Performed By: #### C BCA, BMP #### [facility] ([id number]) [address], [address] [place] [address] eGFR (CKD-EPI) NON-RACE DEPENDENT >90 Normal >59 [facility] Comment on above: Result Comment: Reported eGFR is based on the CKD-EPI 2020 equation that does not use a race coefficient. Performed By: #### C BCA, BMP #### [facility] ([id number]) [address] [address] [place] [address] Glucose [Mass/Vol] 99 mg/dL Normal 65-99 [facility] Comment on above: Performed By: #### C BCA, BMP #### [facility] ([id number]) [address] [address] [place] [address] Potassium [Moles/Vol] 3.8 mmol/L Normal 3.5-5.0 [facility] Comment on above: Performed By: #### C BCA, BMP #### [facility] ([id number]) [address] [address] Sodium [Moles/Vol] 140 mmol/L Normal 134-146 [facility] Comment on above: Performed By: #### C BCA, BMP #### [facility] ([id number]) [address] [address] [place] [address] Urea nitrogen [Mass/Vol] 15 mg/dL Normal 5-23 [facility] Comment on above: Performed By: #### C BCA, BMP #### [facility] ([id number]) [address] [address] CBC AND AUTO DIFFon 09-30-19 24 Eosinophils (Bld) [#/Vol] 0.0 10*3/uL Normal 0.0-0.4 [facility] Comment on above: Performed By: #### C BCA, BMP #### [facility] ([id number]) [address] [address] Eosinophils/100 WBC (Bld) 1.0 % Normal [facility] Comment on above: Performed By: #### C BCA, BMP #### [facility] ([id number]) [address] [place] [address] Erythrocyte distribution width (RBC) [Ratio] 15.0 % Normal 11.5-15.0 [facility] Comment on above: Performed By: #### Amanda WILKINSON, BMP #### [facility] ([id number]) [address] [place] [address] Hematocrit (Bld) [Volume fraction] 38.6 % Normal 35-47 [facility] Comment on above: Performed By: #### C MINH, BMP #### [facility] ([id number]) [address], [facility] [address] [place] [address] Hemoglobin (Bld) [Mass/Vol] 12.9 g/dL Normal 11.7-15.5 [facility] Comment on above: Performed By: #### C MINH, BMP #### [facility] ([id number]) [address] [place] [address] Lymphocytes (Bld) [#/Vol] 1.6 10*3/uL Normal 1.0-3.5 [facility] Comment on above: Performed By: #### Amanda WILKINSON, BMP #### [facility] ([id number]) [address] [place] [address] Lymphocytes/100 WBC (Bld) 49.0 % Normal [facility] Comment on above: Performed By: #### Amanda WILKINSON, BMP #### [facility] ([id number]) [address] [address] [place] [address] MCH (RBC) [Entitic mass] 39.9 pg High 27-34 [facility] Comment on above: Performed By: #### C MINH, BMP #### [facility] ([id number]) [address] [address] [place] [address] MCHC (RBC) [Mass/Vol] 33.5 g/dL Normal 32-36 [facility] Comment on above: Performed By: #### C MINH, BMP #### [facility] ([id number]) [address], [address] [place] [address] MCV (RBC) [Entitic vol] 119 fL High 80-100 [facility] Comment on above: Performed By: #### C MINH, BMP #### [facility] ([id number]) [address], [address] [place] [address] Monocytes (Bld) [#/Vol] 0.4 10*3/uL Normal 0-0.9 [facility] Comment on above: Performed By: #### C MINH, BMP #### [facility] ([id number]) [address] [place] [address] Monocytes/100 WBC (Bld) 11.0 % Normal [facility] Comment on above: Performed By: #### C MINH, BMP #### [facility] ([id number]) [address], [address] [place] [address] Neutrophils (Bld) [#/Vol] 1.2 10*3/uL Low 1.5-6.6 [facility] Comment on above: Performed By: #### C MINH, BMP #### [facility] ([id number]) [address], [address] [place] [address] Platelet mean volume (Bld) [Entitic vol] 8.5 fL Normal 7-12 [facility] Comment on above: Performed By: #### C MINH, BMP #### [facility] ([id number]) [address], [address] [place] [address] Platelets (Bld) [#/Vol] 316 10*3/uL Normal 150-450 [facility] Comment on above: Performed By: #### C MINH, BMP #### [facility] ([id number]) [address], [address] [place] [address] RBC COUNT 3.24 X10E12/L Low 3.80-5.20 [facility] Comment on above: Performed By: #### Amanda WILKINSON, BMP #### [facility] ([id number]) [address] [place] [address] RBC morphology finding Nom (Bld) NORMAL Normal [facility] Comment on above: Performed By: #### Amanda WILKINSON, BMP #### [facility] ([id number]) [address], [facility] [address] [place] [address] SEG NEUTROPHIL 39.0 % Normal [facility] Comment on above: Performed By: #### Amanda WILKINSON, BMP #### [facility] ([id number]) [address], [address] [address] WBC (Bld) [#/Vol] 3.2 10*3/uL Low 4.0-11.0 [facility] Comment on above: Performed By: #### Amanda WILKINSON, BMP #### [facility] ([id number]) [address], [address] [address] BLOOD CULTUREon 09-26-2023 Bacteria identified Aer cx Nom (Bld) CULTURE RESULTS NO SPECIMEN RECEIVED IN LABORATORY ACCOUNT CREDITED Normal [facility] Comment on above: Performed By: #### 1 7928-3 #### [facility] ([id number]) [address], [address] [address] XR CHEST 2 VWSon 09-19-2023 XR CHEST [...] Xavier MD on 09/19/2023 2:[address] [facility] URINALYSISon 07-25-2023 Bilirubin Ql (U) Negative Normal NEG [facility] Comment on above: Performed By: #### U A #### [facility] ([id number]) [address] [place] [address] [place] [address] BLOOD/HGB Large Abnormal NEG [facility] Comment on above: Performed By: #### U A #### [facility] ([id number]) [address] [place] [address] [place] [address] CA OXALATE CRYSTALS PRESENT Abnormal NONE [facility] Comment on above: Performed By: #### U A #### [facility] ([id number]) [address] [place] [address] [place] [address] Color (U) YELLOW Normal YELLOW [facility] Comment on above: Performed By: #### U A #### [facility] ([id number]) [address] [place] [address] [place] [address] Glucose Ql (U) Negative Normal NEG [facility] Comment on above: Performed By: #### U A #### [facility] ([id number]) [address] [place] [address] [place] [address] Ketones Ql (U) Negative Normal NEG [facility] Comment on above: Performed By: #### U A #### [facility] ([id number]) [address] [place] [address] [place] [address] Leukocyte esterase Test strip Ql (U) SMALL Abnormal NEG [facility] Comment on above: Performed By: #### U A #### [facility] ([id number]) [address] [place] [address] Nitrite Ql (U) Positive Abnormal NEG [facility] Comment on above: Performed By: #### U A #### [facility] ([id number]) [address] [place] [address] pH (U) 6.0 [pH] Normal 5.0-8.5 [facility] Comment on above: Performed By: #### U A #### [facility] ([id number]) [address] [place] [address] Protein Ql (U) Negative Normal NEG [facility] Comment on above: Performed By: #### U A #### [facility] ([id number]) [address] [place] [address] R.B.CELLS 10 /hpf High 0-5 [facility] Comment on above: Performed By: #### U A #### [facility] ([id number]) [address] [place] [address] Specific gravity (U) [Rel density] 1.025 Normal 1.003-1.[address] [facility] Comment on above: Performed By: #### U A #### [facility] ([id number]) [address] [place] [address] SQUAMOUS EPITHELIUM 10 /hpf High 0-5 [facility] Comment on above: Performed By: #### U A #### [facility] ([id number]) [address] [place] [address] [place] [address] TURBIDITY HAZY Abnormal CLEAR [facility] Comment on above: Performed By: #### U A #### [facility] ([id number]) [address] [place] [address] Urobilinogen Qn (U) 0.2 {Tra'U}/dL Normal <1.1 [facility] Comment on above: Performed By: #### U A #### [facility] ([id number]) [address] [place] [address] W.B.CELLS 31 /hpf High 0-5 [facility] Comment on above: Performed By: #### U A #### [facility] ([id number]) [address] [place] [address] URINE CULTUREon 07-25-2023 Bacteria identified Cx Nom [...] <=1 F TRIMETH/SULFAMETHOXAZOLE S <=1/[address] [facility] Comment on above: Performed By: #### 6 30-4 #### [facility] ([id number]) [address] [facility] [place] [address] CT BRAIN WO CONTon 4 CT BRAIN WO CONT CT BRAIN WO CONT CLINICAL INFORMATION: Cerebrovascular accident (CVA), unspecified mechanism ([facility]) TECHNIQUE: CT BRAIN WO CONT CT images [...] Richards MD on 06/10/2023 3:[address] [facility] CALCIUMon 08-02-2022 Calcium [Mass/Vol] 9.2 mg/dL Normal 8.5-10.1 [facility] Comment on above: Performed By: #### C A, CREA #### [facility] [address] [place], [place] [address] Dr. Carmelina Sarah CREATININEon 08-02-2022 Creatinine [Mass/Vol] 0.88 mg/dL Normal 0.55-1.02 [facility] Comment on above: Performed By: #### C A, CREA ####[facility] [address] [place] [address]DrMelly Sarah EGFR-AF TAIWANESE >60 Normal >=60 [facility] Comment on above: Performed By: #### C A, CREA ####[facility] [address] [place] [address]DrMelly Sarah EGFR-NON AF TAIWANESE >60 Normal >=60 [facility] Comment on above: Performed By: #### C A, CREA ####[facility] [address] [place] [address]Dr. Carmelina Sarah MG MAMM SCREEN 3D CONCEPCIÓN CADon 03-24-2022 MG MAMM SCREEN 3D CONCEPCIÓN CAD Patient: ANGELIQUE MELO Exam Date: 03/24/2022 : 1965 Gender:F Ordering : DR ALEX THOMASON . Admission #: [id number] Family : Order #: [id number] CLICK HERE TO VIEW EXAM RADIOLOGY REPORT [...] lymphoma cancer at age 44. LOCATION: [facility] BREAST COMPOSITION: Scattered areas fibroglandular density. [...] Frances Quezada MD on 03/25/2022 at 08:12 [facility] XR DEXA BONE DENSITYon 03-24 XR DEXA BONE DENSITY DEXA Bone Density Study CLINICAL: Evaluate bone mineral density. Postmenopausal COMPARISON: None FINDINGS: The bone density study was assessed by dual-energy x-ray absorptiometry with the linkedFA scanner. The test results are expressed in [...] FRANCES NICHOLS Date: 2022-03-24 09:29 Normal [facility] CBC AUTO DIFFon 02-22-2022 BASO # 0.3 103/ul Critically high 0.0-0.1 [facility] Comment on above: Performed By: #### C BC ####[facility] [address] [place], [place] [address]Dr. Carmelina Sarah Basophils/100 WBC (Bld) 3.0 % Critically high 0.2-2.0 [facility] Comment on above: Performed By: #### C BC ####[facility] [address] [place] [address]Dr. Yilan Sarah EO # 0.3 103/ul Normal 0.0-0.7 [facility] Comment on above: Performed By: #### C BC ####[facility] [address] [place], [place] [address]Dr. Yilan Sarah Eosinophils/100 WBC (Bld) 3.1 % Normal 0.9-7.0 [facility] Comment on above: Performed By: #### C BC ####[facility] [address] [place], [place] [address]Dr. Carmelina Sarah Erythrocyte distribution width (RBC) [Ratio] 15.8 % Critically high 11.0-15.0 [facility] Comment on above: Performed By: #### C BC ####[facility] [address] [place] [address]Dr. Carmelina Sarah Hematocrit (Bld) [Volume fraction] 48.5 % Critically high 36.0-48.0 [facility] Comment on above: Performed By: #### C BC ####[facility] [address] [place] [address]Dr. Candemargarita Sarah Hemoglobin (Bld) [Mass/Vol] 15.6 g/dL Normal 12.0-16.0 [facility] Comment on above: Performed By: #### C BC ####[facility] [address] [place] [address]Dr. Carmelina Sarah IG # 0.05 10e3/ul Critically high 0.00-0.03 [facility] Comment on above: Performed By: #### C BC ####[facility] [address] [place] [address]Dr. Carmelina Sarah IG % 0.5 % Normal 0.0-0.5 [facility] Comment on above: Performed By: #### C BC ####[facility] [address] [place] [address]Dr. Carmelina Sarah LYMPH # 3.2 103/ul Normal 1.2-3.8 [facility] Comment on above: Performed By: #### C BC ####[facility] [address] [place] [address]Dr. Carmelina Sarah Lymphocytes/100 WBC (Bld) 33.4 % Normal 20.5-60.0 [facility] Comment on above: Performed By: #### C BC ####[facility] [address] [place] [address]Dr. Carmelina Sarah MANUAL DIFF REQ NO Normal [facility] Comment on above: Performed By: #### C BC ####[facility] [address] [place] [address]Dr. Carmelina Sarah MCH (RBC) [Entitic mass] 28.3 pg Normal 26.7-34.0 [facility] Comment on above: Performed By: #### C BC ####[facility] [address] [place] [address]Dr. Carmelina Sarah MCHC (RBC) [Mass/Vol] 32.2 g/dL Normal 29.9-35.2 [facility] Comment on above: Performed By: #### C BC ####[facility] [address] [place] [address]Dr. Carmelina Tyrel MCV (RBC) [Entitic vol] 88.0 fL Normal 81.0-99.0 [facility] Comment on above: Performed By: #### C BC ####[facility] [address] [place], [place] [address]Dr. Carmelina Tyrel MONO # 0.7 103/ul Normal 0.3-0.8 [facility] Comment on above: Performed By: #### C BC ####[facility] [address] [place], [place] [address]Dr. Candemargarita Sarah Monocytes/100 WBC (Bld) 7.7 % Normal 1.7-12.0 [facility] Comment on above: Performed By: #### C BC ####[facility] [address] [place], [place] [address]Dr. Carmelina Sarah NEUT # 5.0 103/ul Normal 1.4-6.5 [facility] Comment on above: Performed By: #### C BC ####[facility] [address] [place], [place] [address]Dr. Candemargarita Sarah Neutrophils/100 WBC (Bld) 52.3 % Normal 43.0-75.0 [facility] Comment on above: Performed By: #### C BC ####[facility] [address] [place], [place] [address]Dr. Carmelina Tyrel Platelet mean volume (Bld) [Entitic vol] 10.8 fL Normal 9.5-13.5 [facility] Comment on above: Performed By: #### C BC ####[facility] [address] [place], [place] [address]Kb. Carmelina Sarah PLT 765 103/ul Critically high 150-450 [facility] Comment on above: Performed By: #### C BC ####[facility] [address] [place], [place] [address]Bb. Carmelina Sarah RBC 5.51 106/ul Critically high 4.20-5.40 [facility] Comment on above: Performed By: #### C BC ####[facility] [address] [place], [place] [address]Rg. Carmelina Sarah WBC 9.6 103/ul Normal 4.0-11.0 [facility] Comment on above: Performed By: #### C BC ####[facility] [address] [place], [place] [address]Fi. Carmelina Sarah FREE T3on 02-22-2022 FREE T3 3.14 pg/mlL Normal 2.18-3.98 [facility] Comment on above: Performed By: #### F T3, TSH, T4, LIPID, CMP #### [facility] [address] [place] [address] [address] Carmelina Sarah GLYCOHEMOGLOBIN A1Con 2021 ADA RECOMMENDATION SEE BELOW Normal [facility] Comment on above: Result Comment: ADA RECOMMENDED LIMIT 4.0 - 6.0 ADA THERAPEUTIC TARGET < 7.0 ACTION SUGGESTED > 7.0 Performed By: #### A 1C #### [facility] [address] [place] [address] [address] Carmelina Sarah Glucose [Mass/Vol] 108 mg/dL Normal [facility] Comment on above: Performed By: #### A 1C #### [facility] [address] [place] [address] [address] Carmelina Sarah HbA1c (Bld) [Mass fraction] 5.4 % Normal 4.5-6.2 [facility] Comment on above: Performed By: #### A 1C #### [facility] [address] [place] [address] [address] Carmelina Sarah LIPID PROFILEon 02-22-2022 CHOL-HDL RATIO NORM SEE BELOW Normal [facility] Comment on above: Result Comment: 3.3 - 4.4 LOW RISK 4.4 - 7.1 AVERAGE RISK 7.1 - 11.0 MODERATE RISK >11.0 HIGH RISK Performed By: #### F T3, TSH, T4, LIPID, CMP #### [facility] [address] [place] [address] [address] Carmelina Sarah Cholesterol [Mass/Vol] 158 mg/dL Normal <=200 [facility] Comment on above: Performed By: #### F T3, TSH, T4, LIPID, CMP #### [facility] [address] [place] [address] [address] Carmelina Sarah Cholesterol in HDL [Mass/Vol] 62 mg/dL Critically high 40-60 [facility] Comment on above: Performed By: #### F T3, TSH, T4, LIPID, CMP #### [facility] [address] [place] [address] [address] Carmelina Sarah Cholesterol in LDL [Mass/Vol] 81.2 mg/dL Normal [facility] Comment on above: Performed By: #### F T3, TSH, T4, LIPID, CMP #### [facility] [address] [place] [address] [address] Carmelina Sarah Cholesterol.total/ Cholesterol in HDL [Mass ratio] 2.5 {ratio} Normal [facility] Comment on above: Performed By: #### F T3, TSH, T4, LIPID, CMP #### [facility] [address] [place] [address] [address] Carmelina Sarah HDL NORMAL > or = 60 mg/dl - LO W CARDIOVASCULAR RISK <40 mg/dl - HIGH CARDIOVASCULAR RISK Normal [facility] Comment on above: Performed By: #### F T3, TSH, T4, LIPID, CMP #### [facility] [address] [place] [address] [address] Carmelina Sarah LDL CALC NORMAL SEE BELOW Normal [facility] Comment on above: Result Comment: <100 mg/dl OPTIMAL 100 - 129 mg/dl NEAR OR ABOVE OPTIMAL 130 - 159 mg/dl BORDERLINE HIGH 160 - 189 mg/dl HIGH >190 mg/dl VERY HIGH Performed By: #### F T3, TSH, T4, LIPID, CMP #### [facility] [address] [place] [address] [address] Carmelina Sarah Triglyceride [Mass/Vol] 74 mg/dL Normal <=150 [facility] Comment on above: Performed By: #### F T3, TSH, T4, LIPID, CMP #### [facility] [address] [place] [address] [address] Carmelina Sarah VLDL CALC 14.8 mg/dL Normal [facility] Comment on above: Performed By: #### F T3, TSH, T4, LIPID, CMP #### [facility] [address] [place] [address] Dr. Carmelina Sarah PROF 14(COMP METB)on 022 Albumin [Mass/Vol] 3.8 g/dL Normal 3.4-5.0 [facility] Comment on above: Performed By: #### F T3, TSH, T4, LIPID, CMP #### [facility] [address] [place] [address] Dr. Carmelina Sarah Albumin/Globulin [Mass ratio] 1.0 {ratio} Normal [facility] Comment on above: Performed By: #### F T3, TSH, T4, LIPID, CMP #### [facility] [address] [place] [address] Dr. Carmelina Sarah ALP [Catalytic activity/Vol] 102 U/L Normal 46-116 [facility] Comment on above: Performed By: #### F T3, TSH, T4, LIPID, CMP #### [facility] [address] [place] [address] Dr. Carmelina Sarah ALT [Catalytic activity/Vol] 22 U/L Normal 14-59 [facility] Comment on above: Performed By: #### F T3, TSH, T4, LIPID, CMP #### [facility] [address] [place] [address] Dr. Carmelina Sarah Anion gap [Moles/Vol] 11.1 mmol/L Normal [facility] Comment on above: Performed By: #### F T3, TSH, T4, LIPID, CMP #### [facility] [address] [place] [address] Dr. Carmelina Sarah AST [Catalytic activity/Vol] 21 U/L Normal 15-37 [facility] Comment on above: Performed By: #### F T3, TSH, T4, LIPID, CMP #### [facility] [address] [place] [address] [address] Carmelina Sarah Bilirubin [Mass/Vol] 0.5 mg/dL Normal 0.2-1.0 [facility] Comment on above: Performed By: #### F T3, TSH, T4, LIPID, CMP #### [facility] [address] [place] [address] [address] Carmelina Sarah Calcium [Mass/Vol] 9.2 mg/dL Normal 8.5-10.1 [facility] Comment on above: Performed By: #### F T3, TSH, T4, LIPID, CMP #### [facility] [address] [place] [address] Dr. Carmelina Sarah Chloride [Moles/Vol] 104 mmol/L Normal 98-107 [facility] Comment on above: Performed By: #### F T3, TSH, T4, LIPID, CMP #### [facility] [address] [place] [address] Dr. Carmelina Sarah CO2 [Moles/Vol] 27.6 mmol/L Normal 21.0-32.0 [facility] Comment on above: Performed By: #### F T3, TSH, T4, LIPID, CMP #### [facility] [facility] [address] [place] [address] Dr. Carmelina Sarah Creatinine [Mass/Vol] 0.93 mg/dL Normal 0.55-1.02 [facility] Comment on above: Performed By: #### F T3, TSH, T4, LIPID, CMP #### [facility] [address] [address] [address] Carmelina Sarah EGFR-AF TAIWANESE >60 Normal >=60 [facility] Comment on above: Performed By: #### F T3, TSH, T4, LIPID, CMP #### [facility] [address] [place] [address] Dr. Carmelina Sarah EGFR-NON AF TAIWANESE >60 Normal >=60 [facility] Comment on above: Performed By: #### F T3, TSH, T4, LIPID, CMP #### [facility] [address] [address] [address] Carmelina Sarah Globulin (S) [Mass/Vol] 3.7 g/dL Normal [facility] Comment on above: Performed By: #### F T3, TSH, T4, LIPID, CMP #### [facility] [address] [place] [address] Dr. Carmelina Sarah Glucose [Mass/Vol] 90 mg/dL Normal 74-[address] [facility] Comment on above: Performed By: #### F T3, TSH, T4, LIPID, CMP #### [facility] [address] [place] [address] Dr. Carmelina Sarah Potassium [Moles/Vol] 3.7 mmol/L Normal 3.5-5.1 [facility] Comment on above: Performed By: #### F T3, TSH, T4, LIPID, CMP #### [facility] [address] [place] [address] Dr. Carmelina Sarah Protein [Mass/Vol] 7.5 g/dL Normal 6.4-8.[address] [facility] Comment on above: Performed By: #### F T3, TSH, T4, LIPID, CMP #### [facility] [address] [place] [address] Dr. Carmelina Sarah Sodium [Moles/Vol] 139 mmol/L Normal 136-[address] [facility] Comment on above: Performed By: #### F T3, TSH, T4, LIPID, CMP #### [facility] [address] [place] [address] Dr. Carmelina Sarah Urea nitrogen [Mass/Vol] 19.0 mg/dL Critically high 7.0-18.0 [facility] Comment on above: Performed By: #### F T3, TSH, T4, LIPID, CMP #### [facility] [address] [place] [address] Dr. Carmelina Sarah Urea nitrogen/Creatinin e [Mass ratio] 20.4 mg/mg Normal [facility] Comment on above: Performed By: #### F T3, TSH, T4, LIPID, CMP #### [facility] [address] [place] [address] Dr. Carmelina Sarah T4on 02-22-2022 T4 [Mass/Vol] 8.10 ug/dL Normal 4.80-13.90 [facility] Comment on above: Performed By: #### F T3, TSH, T4, LIPID, CMP #### [facility] [address] [place] [address] Dr. Carmelina Sarah TSHon 02-22-2022 TSH 0.985 uIU/mL Normal 0.358-3.74 0 [facility] Comment on above: Performed By: #### F T3, TSH, T4, LIPID, CMP #### [facility] [address] [place] [address] Dr. Carmelina Sarah VITAMIN D 25 OHon 02-22-2022 VIT D 25-OH 51.9 ng/mL Normal [facility] Comment on above: Performed By: #### V ITAD #### [facility] [address] [place] [address] Dr. Carmelina Sarah VIT D RANGES SEE BELOW Normal [facility] Comment on above: Result Comment: <20 ng/mL Vit D deficient 20 - <30 ng/mL Vit D insufficient 30 - 100 ng/mL Vit D sufficient >100 ng/mL Potential Toxicity Performed By: #### V ITAD #### [facility] [address] [place] [address] Dr. Carmelina Saarh COVID Quick Testingon 2020 Result Negative [facility] SARS-CoV-2 (COVID-19) RNA TIRSO+probe Ql (Unsp spec) Negative Normal Negative [facility] Comment on above: Order Comment: Healt hcare Worker?: N Result Comment: Refe rence: Negative Testing for SARS-CoV-2 by RT-PCR This test was developed and its performance characteristics determined by [employer] ([employer]) and validated at the [facility]. This test has not been FDA cleared [...] is terminated or revoked sooner. PERFORMED BY: [place] [address] PATHOLOGIST RAYON TESTER TOSHIA GILLIS M.D. Performed By: #### C OVID-19 [facility] #### [facility] [address] [place] [address] COVID-19 Positive/Negativeon 06-09-2020 COVID-19 Positive/Negative Negative Negative [facility] Comment on above: Reference: NegativeT esting for SARS-CoV-2 by RT-PCRThis test was developed and its performance characteristics determined by [employer] ([employer]) and validated at the [facility]. This test has not been FDA cleared [...] Otheron 06-09-2020 Coronavirus 2019 PCR Interp N/A [facility] Automated basophil %on 06-06 Basophils/100 WBC (Bld) 2.9 % [facility] Automated basophil counton 0 06-06-2020 Basophils (Bld) [#/Vol] 0.3 10*3/uL 0.0-0.2 [facility] Automated blood lymphocyte c ount (number/volume)on 06-06-2020 Lymphocytes (Bld) [#/Vol] 2.4 10*3/uL 1.00-4.8 [facility] Automated blood lymphocyte c ount as percentage of total leukocyteson 06-06-2020 Lymphocytes/100 WBC (Bld) 26.6 % [facility] Automated blood monocyte cou nton 06-06-2020 Monocytes (Bld) [#/Vol] 1.0 10*3/uL 0.0-0.8 [facility] Automated blood platelet cou nt (count/volume)on 06-06-2020 Platelets (Bld) [#/Vol] 527 10*3/uL 150-450 [facility] Automated blood platelet joi n volume measurementon 06-06-2020 Platelet mean volume (Bld) [Entitic vol] 9.6 fL 6.3-10.7 [facility] Automated eosinophil %on Eosinophils/100 WBC (Bld) 4.8 % [facility] Automated eosinophil counton 06-06-2020 Eosinophils (Bld) [#/Vol] 0.4 10*3/uL 0.0-0.45 [facility] Automated erythrocyte distri bution width ratioon 06-06-2020 Erythrocyte distribution width (RBC) [Ratio] 15.8 % 11.9-15.3 [facility] Automated erythrocyte mean c orpuscular hemoglobin (mass per erythrocyte)on 06-06-2020 MCH (RBC) [Entitic mass] 28.7 pg 24.7-34.3 [facility] Automated erythrocyte mean c orpuscular hemoglobin concentration measurement (mass/volon 06-06-2020 MCHC (RBC) [Mass/Vol] 33.4 g/dL 32.0-35.0 [facility] Automated erythrocyte mean c orpuscular volumeon 06-06-2020 MCV (RBC) [Entitic vol] 85.9 fL 80-100 [facility] Automated monocyte %on 06-06 Monocytes/100 WBC (Bld) 10.9 % [facility] Automated neutrophil %on Neutrophils/100 WBC (Bld) 54.8 % [facility] Blood erythrocytes automated count (number/volume)on 06-06-2020 RBC (Bld) [#/Vol] 5.10 10*6/uL 3.60-5.00 [facility] Blood hemoglobin measurement (mass/volume)on 06-06-2020 Hemoglobin (Bld) [Mass/Vol] 14.7 g/dL 11.8-15.4 [facility] Blood leukocytes automated c ount (number/volume)on 06-06-2020 WBC (Bld) [#/Vol] 9.0 10*3/uL 4.5-11.0 [facility] Blood neutrophil count by au tomated method (number/volume)on 06-06-2020 Neutrophils (Bld) [#/Vol] 4.9 10*3/uL 1.8-7.7 [facility] Body fluid albumin measureme nt (mass/volume)on 06-06-2020 Albumin (Body fld) [Mass/Vol] 4.0 g/dL 3.2-5.5 [facility] Complete Blood Count Auto Di ffon 06-06-2020 Basophils (Bld) [#/Vol] 0.3 10*3/uL High 0.0-0.2 [facility] Comment on above: Result Comment: PERF ORMED BY: [facility] [address] [place] [address] PATHOLOGIST RAYON TESTER TOSHIA GILLIS M.D. Performed By: #### C MP, CBC #### [facility] [address] [place] [address] [place] Basophils/100 WBC (Bld) 2.9 % Normal . [facility] Comment on above: Performed By: #### C MP, CBC #### [facility] [address] Eosinophils (Bld) [#/Vol] 0.4 10*3/uL Normal 0.0-0.45 [facility] Comment on above: Performed By: #### C MP, CBC #### [place] [address] [place] Eosinophils/100 WBC (Bld) 4.8 % Normal . [facility] Comment on above: Performed By: #### C MP, CBC #### [address] Erythrocyte distribution width (RBC) [Ratio] 15.8 % High 11.9-15.3 [facility] Comment on above: Performed By: #### C MP, CBC #### [address] Hematocrit (Bld) [Volume fraction] 43.8 % Normal 34.0-46.4 [facility] Comment on above: Performed By: #### C MP, CBC #### [address] Hemoglobin (Bld) [Mass/Vol] 14.7 g/dL Normal 11.8-15.4 [facility] Comment on above: Performed By: #### C MP, CBC #### [place] [address] [place] Lymphocytes (Bld) [#/Vol] 2.4 10*3/uL Normal 1.00-4.8 [facility] Comment on above: Performed By: #### C MP, CBC #### [place] [address] [place] Lymphocytes/100 WBC (Bld) 26.6 % Normal . [facility] Comment on above: Performed By: #### C MP, CBC #### [address] MCH (RBC) [Entitic mass] 28.7 pg Normal 24.7-34.3 [facility] Comment on above: Performed By: #### C MP, CBC #### [address] MCV (RBC) [Entitic vol] 85.9 fL Normal 80-100 [facility] Comment on above: Performed By: #### C MP, CBC #### [facility] [address] Mean Corpuscular HGB Conc 33.4 g/dL Normal 32.0-35.0 [facility] Comment on above: Performed By: #### C MP, CBC #### [facility] [address] [place] [address] [place] Monocytes (Bld) [#/Vol] 1.0 10*3/uL High 0.0-0.8 [facility] Comment on above: Performed By: #### C MP, CBC #### [facility] [address] [place] [address] [place] Monocytes/100 WBC (Bld) 10.9 % Normal . [facility] Comment on above: Performed By: #### C MP, CBC #### [facility] [address] [place] [address] [place] Neutrophils (Bld) [#/Vol] 4.9 10*3/uL Normal 1.8-7.7 [facility] Comment on above: Performed By: #### C MP, CBC #### [facility] [address] [place] [address] [place] Neutrophils/100 WBC (Bld) 54.8 % Normal . [facility] Comment on above: Performed By: #### C MP, CBC #### [facility] [address] [id number] [place] Nucleated RBC/100 WBC (Bld) [Ratio] 0.0 % Normal 0-0.5 [facility] Comment on above: Performed By: #### C MP, CBC #### [facility] [address] [place] [address] [place] Platelet mean volume (Bld) [Entitic vol] 9.6 fL Normal 6.3-10.7 [facility] Comment on above: Performed By: #### C MP, CBC #### [facility] [address] [id number] [place] Platelets (Bld) [#/Vol] 527 10*3/uL High 150-450 [facility] Comment on above: Performed By: #### C MP, CBC #### [address] RBC (Bld) [#/Vol] 5.10 10*6/uL High 3.60-5.00 [facility] Comment on above: Performed By: #### C MP, CBC #### [address] WBC (Bld) [#/Vol] 9.0 10*3/uL Normal 4.5-11.0 [facility] Comment on above: Performed By: #### C MP, CBC #### [facility] [address] [place] [address] Comprehensive Metabolic Pane chrystal 06-06-2020 Albumin [Mass/Vol] 4.0 g/dL Normal 3.2-5.5 [facility] Comment on above: Performed By: #### C MP, CBC #### [address] Albumin/Globulin [Mass ratio] 1.6 {ratio} Normal [facility] Comment on above: Performed By: #### C MP, CBC #### [address] ALP [Catalytic activity/Vol] 107 U/L High 32-92 [facility] Comment on above: Result Comment: PERF ORMED BY: [place] [address] PATHOLOGIST RAYON TESTER TOSHIA GILLIS M.D. Performed By: #### C MP, CBC #### [address] ALT [Catalytic activity/Vol] 22 U/L Normal 10-60 [facility] Comment on above: Performed By: #### C MP, CBC #### [address] AST [Catalytic activity/Vol] 23 U/L Normal 10-42 [facility] Comment on above: Performed By: #### C MP, CBC #### [address] Bilirubin [Mass/Vol] 0.7 mg/dL Normal 0.3-1.2 [facility] Comment on above: Performed By: #### C MP, CBC #### [facility] [address] Calcium [Mass/Vol] 9.7 mg/dL Normal 8.2-10.2 [facility] Comment on above: Performed By: #### C MP, CBC #### [facility] [address] Chloride [Moles/Vol] 101 mmol/L Normal 95-114 [facility] Comment on above: Performed By: #### C MP, CBC #### [address] CO2 [Moles/Vol] 25.1 mmol/L Normal 22.0-30.0 [facility] Comment on above: Performed By: #### C MP, CBC #### [address] Creatinine [Mass/Vol] 0.97 mg/dL Normal 0.44-1.03 [facility] Comment on above: Performed By: #### C MP, CBC #### [address] Estimated GFR ( Almita > 60 Normal [facility] Comment on above: Result Comment: GFR estimated reference range: According to KDOQI guidelines, <60 ml/min/1.73m2 is sufficient to diagnose a patient with chronic kidney disease. Performed By: #### C MP, CBC #### [place] [address] [place] Estimated GFR (Non- Am 59 Normal [facility] Comment on above: Performed By: #### C MP, CBC #### [place] [address] [place] Globulin (S) [Mass/Vol] 2.5 g/dL Normal [facility] Comment on above: Performed By: #### C MP, CBC #### [place] [address] [place] Glucose [Mass/Vol] 80 mg/dL Normal 70-100 [facility] Comment on above: Result Comment: [place] Glucose Reference Range is dependent on time and content of last meal. Glucose of more than 200 mg/dL in a nonstressed, ambulatory subject supports the diagnosis of Diabetes Mellitus. ADA recommended reference range Performed By: #### C MP, CBC #### [facility] [address] [id number] [place] Potassium [Moles/Vol] 5.1 mmol/L Normal 3.5-5.1 [facility] Comment on above: Performed By: #### C MP, CBC #### [facility] [address] [place] [address] [place] Protein [Mass/Vol] 6.5 g/dL Normal 6.1-7.9 [facility] Comment on above: Performed By: #### C MP, CBC #### [facility] [address] [id number] [place] Sodium [Moles/Vol] 136 mmol/L Normal 136-146 [facility] Comment on above: Performed By: #### C MP, CBC #### [facility] [address] [place] [address] [place] Urea nitrogen [Mass/Vol] 15 mg/dL Normal 9-23 [facility] Comment on above: Performed By: #### C MP, CBC #### [facility] [address] [id number] [place] ECG 12 lead ECGon 06-06-2020 ECG 12 lead ECG [facility] [place] [address] [place] [address] Electrocardiograph Report Signed Patient: Angelique Melo MR#: [id number] : 1965 Acct:[id number] Age/Sex: 54 / F ADM Date: 06/06/20 Loc: PS Room: Type: [facility] Attending Dr: Sesar Gutiérrez MD Ordering [...] DO 06/06/20914 Signed By: 06/06/20 1507 Normal [facility] Estimated glomerular filtrat ion rate (GFR) non- Americanon 06-06-2020 GFR/1.73 sq M predicted among non-blacks MDRD (S/P/Bld) [Vol rate/Area] 59 mL/min/{1.73_m2} [facility] Hematocrit [Volume Fraction] of Blood by Automated counton 06-06-2020 Hematocrit (Bld) [Volume fraction] 43.8 % 34.0-46.4 [facility] Otheron 06-06-2020 GFR/1.73 sq M.predicted MDRD (S/P/Bld) [Vol rate/Area] mL/min/{1.73_m2} [facility] Comment on above: GFR estimated refere nce range: According to KDOQI guidelines, <60 ml/min/1.73m2 is sufficient to diagnose a patient with chronic kidney disease. Nucleated RBC/100 WBC (Bld) [Ratio] 0.0 % 0-0.5 [facility]acy Creatinine Clearance (Chem N/A [facility] Protein [Mass/volume] in Ser um or Plasmaon 06-06-2020 Protein [Mass/Vol] 6.5 g/dL 6.1-7.9 [facility] Serum globulin measurement b y calculation (mass/volume)on 06-06-2020 Globulin (S) [Mass/Vol] 2.5 g/dL [facility] Serum or plasma alanine berry otransferase measurement without P-5'-P (enzymatic activion 06-06-2020 ALT No additional P-5'-P [Catalytic activity/Vol] 22 U/L 10-60 [facility] Serum or plasma albumin/glob ulin mass ratioon 06-06-2020 Albumin/Globulin [Mass ratio] 1.6 {ratio} [facility] Serum or plasma alkaline anju sphatase measurement (enzymatic activity/volume)on 06-06-2020 ALP [Catalytic activity/Vol] 107 U/L 32-92 [facility] Serum or plasma aspartate am inotransferase measurement (enzymatic activity/volume)on 06-06-2020 AST [Catalytic activity/Vol] 23 U/L 10-42 [facility] Serum or plasma calcium sammi urement (mass/volume)on 06-06-2020 Calcium [Mass/Vol] 9.7 mg/dL 8.2-10.2 [facility] Serum or plasma chloride joi surement (moles/volume)on 06-06-2020 Chloride [Moles/Vol] 101 mmol/L 95-114 [facility] Serum or plasma creatinine m easurement with calculation of estimated glomerular filtron 06-06-2020 Creatinine [Mass/Vol] 0.97 mg/dL 0.44-1.03 [facility] Serum or plasma glucose sammi urement (mass/volume)on 06-06-2020 Glucose [Mass/Vol] 80 mg/dL 70-100 [facility] Comment on above: ADA recommended refe rence rangeRandom Glucose Reference Range is dependent on time and content of last meal. Glucose of more than 200 mg/dL in a nonstressed, ambulatory subject supports the diagnosis of Diabetes Mellitus. Serum or plasma potassium me asurement (moles/volume)on 06-06-2020 Potassium [Moles/Vol] 5.1 mmol/L 3.5-5.1 [facility] Serum or plasma sodium measu rement (moles/volume)on 06-06-2020 Sodium [Moles/Vol] 136 mmol/L 136-146 [facility] Serum or plasma total biliru bin measurement (mass/volume)on 06-06-2020 Bilirubin [Mass/Vol] 0.7 mg/dL 0.3-1.2 [facility] Serum or plasma total carbon dioxide measurement (moles/volume)on 06-06-2020 CO2 [Moles/Vol] 25.1 mmol/L 22.0-30.0 [facility] Serum or plasma urea nitroge n measurement (mass/volume)on 06-06-2020 Urea nitrogen [Mass/Vol] 15 mg/dL 12-18 [facility] MRI KNEE RIGHT WO CONTRASTon [...] by: Rogerio Mathis 05/09/20 Final result Normal [facility] Complex tear of the posterior horn of the medial meniscus. Horizontal tear of the posterior horn and body of the lateral meniscus. [facility] [employer] Work Phone: EXAMINATION: MRI OF THE RIGHT [...] fracture, dislocation or avascular necrosis is seen. [employer] Phone: [place], Mhpn Incoming R adiant Results From [employer] - 05/09/2020 9:03 PM EST EXAMINATION: MRI [...] horn and body of the lateral meniscus. [employer] Phone: Coding Summary.on 03-29-2018 Coding Summary. CODING DATE: 019 [facility] STATUS: Home (Routine DC) PAYOR: [facility] [employer] DESCRIPTION 5312 Level 2 Lower GI Procedures ADMIT DX: REASON FOR VISIT DX: R19.5 Other fecal abnormalities FINAL DX: PRINCIPAL: D12.5 Benign neoplasm of sigmoid colon SECONDARY: E78.00 Pure hypercholesterolemia, unspecified F32.9 Major depressive disorder, single episode, unspecified F17.200 Nicotine dependence, unspecified, uncomplicated PYMT PROC APC STAT DESCRIPTION DOCTOR NAME DATE 87763 5312 T Colonoscopy, flexible; Gala DESOUZA MD 03/20/2018 with removal of tumor(s), polyp(s), or other lesion(s) by snare technique 47164 Anesthesia for lower Ben Deal JR, DO [...] Revised Date Saved: 03/29/2018 03:45 pm Normal [facility] Main OR Intraoperative Recor don 03-22-2018 Main OR Intraoperative Record IntraOp Document Type FT Summary Primary Physician: Gala DESOUZA MD Finalized Date/Time: 03/22/18 14:43:28 Pt. Name: ANGELIQUE MELO./Sex: 1965 Female Med Rec #: [id number] Physician: Gala DESOUZA MD Financial #: [id number] Pt. 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 PROFESSOR Case Attendance FT Entry 1 Entry 2 Entry 3 Case Attendee Elma Duffy MD, Gala Bautista RN, Zelda Role Performed Anesthesiologist Surgeon - Primary Tour Sales Representative - Primary Tree Warden Time In 03/20/18 09:05:00 03/20/18 09:05:00 03/20/18 09:05:00 Time Out 03/20/18 09:29:00 03/20/18 09:29:00 03/20/18 09:29:00 Procedure COLONOSCOPY(.) COLONOSCOPY(.) COLONOSCOPY(.) Comments supervising Last Modified By: Michele RN, Zelda Bautista RN, Zelda Bautista RN, Zelda 03/20/18 09:29:46 03/20/18 09:29:46 03/20/18 09:29:46 Entry 4 Entry 5 Case Attendee Samara Blanco Brea Lens AssorterWinnie Role Performed Scrub - Other Scrub - [...] Participants Gala DESOUZA MD, Workman RN, Zelda [facility] Time Out Complete 03/20/18 09:07:00 Outcomes [...] and tissue Entry 1 Skin Integrity Intact, [place], Warm, and Skin Abnormality No Dry Outcomes [...] injury caused by extraneous objects Transport To [facility] Pre-Care Text: Transports according to individual [...] RN Patient Status Stable Skin. Condition Intact, [place], Warm, and Dry Airway Maintenance Oxygen in Use? No Airway Device N/A Outcomes Met? 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 Yes Verified Last Modified By: Zelda Bautista RN 03/20/18 06:49:20 Post-Care Text: The patient received appropriate medication(s) safely administered during the perioperative period For [facility] please see scanned medication reconcilliation form [...] 03/20/18 09:30 Lisseth Sellers CST 03/22/18 14:43 [facility] Inpatient Patient Summaryon 03-20-2018 [facility] Inst[facility] INFORMATION Name: ANGELIQUE MELO PHYSICIANS Admitting Physician: Gala DESOUZA MD Physician: Gala DESOUZA MD PCP: Cruzito Thomason MD Diagnosis: Colon polyp Comment: PATIENT EDUCATION INFORMATIONInstructions:Colon oscopy, Care After Surgery Salam (CUSTOM); Colon PolypsMedication Leaflets:Follow up:With: Address: When: Gala [place] [address] Business (1) Within 5 to 7 days Comments: Call for any problems. Call for followup appointment MEDICATION LISTComment: Normal [facility] Main OR PACU I Recordon 02-26 Main OR PACU I Record PACU Phase I Document Type FT Summary Primary Physician: Gala DESOUZA MD Finalized Date/Time: 03/20/18 10:19:08 Pt. Name: ANGELIQUE MELO Bernie/Sex: 1965 Female Med Rec #: [id number] Physician: Gala DESOUZA MD Financial #: [id number] Pt. Type: O Room/Bed: / Admit/Disch: 03/20/18 [...] By: Katerin Joe RN 03/20/18 10:19 Normal [facility] Main OR Preoperative Recordo n 03-20-2018 Main OR Preoperative Record Holding Area Document Type FT Summary Primary Physician: Gala DESOUZA MD Finalized Date/Time: 03/20/18 08:17:50 Pt. Name: LORIE ANGELIQUEALEA Gibbs/Sex: 1965 Female Med Rec #: [id number] Physician: Gala DESOUZA MD Financial #: [id number] Pt. Type: O Room/Bed: / Admit/Disch: 03/20/18 [...] By: Zelda Bautista RN 03/20/18 08:17 Normal [facility] Operative Reporton --[id number] Operative Report Date [...] [facility] the [facility] well [facility].Gala Desouza M.D.lkrDictated: 03/20/2018 #[id number]: 03/20/2018 #[id number]: Alex Thomason M.D.Gala Desouza M.D. [facility] Comment on above: Result Comment: Elec trovalerieally [...] 06/05/2012 Document Reviewed: 05/23/2012ExitCare? Patient Information ?2014 [employer]. This information is not intended to replace advice given to you by your health care provider. Make sure you discuss any questions you have with your health care provider. Normal [facility] Progress Note-Physicianon Protein mass conc Patient: NADER [...] All ProblemsResolved: Polyp colon / SNOMED CT [id number] Physical Examination Intake and Output Denies significant [...] pain . Respiratory: Adequate air exchange with [facility] of preoperative function.. Cardiovascular: Cardiovascular function is [...] Results review: No qualifying data available. Plan [place] [employer] Anesthesiologists (ASA) physical status classification: Class II. Anesthetic Preoperative Plan Anesthesia: Monitored anesthesia care and general anesthesia if required.. Anesthetic plan, risks, benefits, and alternatives discussed with the patient and/or family. Pt. and/or family present and agree to proceed as planned.. Discussed the importance of abstaining from tobacco products, and offered counseling if desired.. Normal [facility] Comment on above: Result Comment: Elec tronically Signed By: Ben Deal JR, DO.sydni\Date and Time Signed: 03/20/18 08:25 EST Vital Signs Date Time Vital Sign Value Performing Clinician Facility 12-29-2020 10:150400 Body height 177.8 cm Chhaya Spivey Other [facility] Other 12-29-2020 10:15-0400 Body mass index (BMI) [Ratio] 31.56 kg/m2 Chhaya Spivey Other [facility] Other 12-29-2020 10:15-0400 Body temperature 98.2 [degF] Chhaya Spivey Other [facility] Other 12-29-2020 10:15-0400 Body weight 99.79 kg Chhaya Spivey Other [facility] Other 12-29-2020 10:15-0400 SaO2% (BldA) [Mass fraction] 97 % Chhaya Spivey Other [facility] Other Encounters Encounter Date Encounter Type Care Provider Facility Start: 12-12-2023 End: 12-12-2023 ambulatory [facility] Start: 12-09-2023 End: 12-09-2023 ambulatory [facility] Start: 12-02-2023 End: 12-02-2023 ambulatory [facility] Start: 11-22-2023 End: 11-22-[address] [facility] Start: 11-14-2023 End: 11-14-2023 ambulatory [facility] Start: 11-02-2023 End: 11-02-2023 ambulatory [facility] Start: 10-25-[address] [facility] Start: 10-13-2023 End: 10-13-2023 Evaluation and management of inpatient [facility] Start: 10-10-2023 End: 10-12-2023 Evaluation and management of inpatient [facility] Start: 10-05-2023 End: 10-05-2023 ambulatory [facility] Start: 10-02-2023 End: 10-02-2023 ambulatory [facility] Start: 09-30-2023 End: 09-30-2023 ambulatory [facility] Start: 09-26-2023 End: 09-26-2023 [facility] Start: 09-26-2023 Encounter for other preprocedural examination ALEX THOMASON [facility] Start: 09-19-2023 End: 09-19-2023 ambulatory MACOMB Lilian [facility] Start: 08-25-2023 End: 08-25-2023 ambulatory ALEX THOMASON [facility] Start: 07-25-2023 End: 07-25-[address] [facility] Start: 07-25-2023 Encounter for other preprocedural examination [facility] Start: 07-21-2023 End: 07-21-2023 ambulatory ALEX THOMASON [facility] Start: 07-07-2023 End: 07-07-2023 ambulatory [facility] Start: 06-10-2023 End: 06-10-2023 ambulatory [facility] Start: 05-23-2023 Orders Only Valentin Velarde MD Work Phone: [facility] [place] - Neurophysiology Start: 04-21-2023 End: 04-21-2023 ambulatory ALEX THOMASON [facility] Start: 03-02-2023 Telephone encounter Татьяна Osborn [facility] Comment on above: Post-op Craniotomy Start: 08-02-2022 End: 08-02-[address] ALEX THOMASON . Facility:[facility] Start: 03-26-2022 Encounter for genera l adult medical examination without abnormal findings DR ALEX THOMASON . [facility] Start: 03-24-2022 End: 03-25-[address] [...] End: 05-11-2020 Patient encounter procedure ALEX THOMASON [facility] Start: 05-08-2020 End: 05-10-2020 Subsequent hospital visit by physician [facility] Mri Rm [facility] MRI Comment on above: Right knee pain, uns pecified chronicity Start: 03-20-2018 End: 03-21-2018 Patient encounter procedure Gala Desouza Facility:[facility] Procedures Date Procedure Procedure Detail Performing Clinician Start: 07-07-2023 Follow-up visit Follow-up SEBAS GILL Start: 05-08-2020 Mri any jt lower ext rem w/o contrast matrl Alex Thomason Work Phone: Plan of Treatment Date Care Activity Detail Author Start: 03-10-2024 Tobacco Screening Tobacco Screening [facility] Start: 03-07-2024 Adult BMI Screening Adult BMI Screening [facility] Start: 07-21-2023 End: 07-21-2023 Patient encounter procedure 07/21/2023 9:30 AM EDT Appointment [facility] - Neurophysiology [address] [place] [address] [facility] - Neurophysiology Start: 07-07-2023 End: 07-07-2023 [facility] Start: 06-10-2023 End: 06-10-2023 Patient encounter procedure 06/10/2023 10:00 AM EDT Appointment [facility] [address] [place] [id number] [facility] Start: 04-21-2023 End: 04-21-2023 Patient encounter procedure 04/21/2023 9:30 AM EST Appointment [facility] - Neurophysiology [address] [place] [address] [facility] Start: 11-26-2022 Influenza vaccination Influenza Vaccine [facility] Start: 11-27-2019 Influenza vaccination Flu vaccine (#1) [facility] Phone: Start: 06-27-2013 Screening for malignant neoplasm of breast Breast cancer screen [facility] Phone: Start: 06-27-2013 Screening for malignant neoplasm of colon Colon cancer screen colonoscopy [employer] Phone: Start: 06-27-2013 Shingles Vaccine (1 of 2) Shingles Vaccine (1 of 2) [employer] Phone: Start: 2003 Lipid panel Lipid screen [facility] Phone: Start: 06-27-1984 Screening for malignant neoplasm of cervix Cervical cancer screen [facility] Phone: Start: 06-27-1982 Administration of varicella zoster vaccine Zoster (Shingles) Vaccine (1 of 2) [employer] [employer] Start: 06-27-1982 DTaP,Tdap and Td Vaccines (1 - Tdap) DTaP,Tdap and Td Vaccines (1 - Tdap) [employer] Start: 06-27-1982 DTaP/Tdap/Td vaccine (1 - Tdap) DTaP/Tdap/Td vaccine (1 - Tdap) [employer] Phone: Start: 06-27-1981 Adult BMI Follow Up Plan Adult BMI Follow Up Plan [employer] [employer] Start: 06-27-1978 HIV screening HIV screen [employer] Phone: Start: 1975 Depression Screening Depression Screening [employer] [facility] Start: 1963 Hepatitis C screening Hepatitis C screen [employer] Phone: Start: 1963 Tobacco Counseling Tobacco Counseling [facility] End: 03-12-2024 Botox Injection For Cervical Dystonia Botox Injection For Cervical Dystonia Neurology Routine Every 3 Months for 4 Occurrences starting 05/23/2023 until 03/12/2024 [facility] Work Phone: Comment on above: Every 3 Months for 4 Occurrences startin g 05/23/2023 until 03/12/2024 Payers Date Payer Category Payer Worker's Compensation WORKER'S C O[employer]ATION WORKER'S [id number] 2018-Present [id number] [id number] 2018 Unknown 1963 Unknown [id number] 2.16.840.1.582540.3.579.2. 176 1963 Unknown [id number] 2.16.840.1.430909.3.579.2. 593 1963 Unknown [id number] 2.16.840.1.591720.3.579.2. 593 1963 Unknown [id number] 2.16.840.1.385079.3.579.2. 593 1963 Unknown [id number] 2.16.840.1.435074.3.579.2. 727 1963 Unknown [id number] 2.16.840.1.904295.3.579.2. 1286 1963 Unknown [id number] 2.16.840.1.260959.3.579.2. 1286 1963 Unknown [id number] 2.16.840.1.265139.3.579.2. 1286 1963 Unknown [id number] 2.16.840.1.966149.3.579.2. 1286 1963 Unknown [id number] 2.16.840.1.830430.3.579.2. 1286 1963 Unknown [id number] 2.16.840.1.577468.3.579.2. 1286 1963 Unknown [id number] 2.16.840.1.376401.3.579.2. 1285 1963 Unknown [id number] 2.16.840.1.636817.3.579.2. 1285 1963 Unknown [id number] 2.16.840.1.145686.3.579.2. 1285 1963 Unknown [id number] 2.16840.1.767215.3.579.2. 1285 1963 Unknown [id number] 2.840.1.207591.3.579.2. 1285 1963 Unknown [id number] 2.840.1.800345.3.579.2. 1285 1963 Unknown [id number] 2.840.1.606471.3.579.2. 1285 1963 Unknown [id number] 2.840.1.887109.3.579.2. 1285 1963 Unknown [id number] 2.840.1.173751.3.579.2. 1285 1963 Unknown [id number] 2.840.1.137843.3.579.2. 1285 1963 Unknown [id number] 2.840.1.055192.3.579.2. 1285 1963 Unknown [id number] 2.840.1.801078.3.579.2. 1285 1963 Unknown [id number] 2.840.1.095741.3.579.2. 1285 1963 Unknown [id number] 2.840.1.828920.3.579.2. 1285 1963 Unknown [id number] 2.840.1.640108.3.579.2. 1285 1963 Unknown [id number] 2.840.1.020618.3.579.2. 1285 1959 Unknown [id number] Self-pay Self Pay [id number] Social History Date Type Detail Facility Tobacco smoking stat us WYIS Unknown if ever smoked [facility] Phone: Start: 1965 Sex Assigned At Not on file [employer]) Work Phone: Exposure to SARS-CoV -2 (event) Not sure [facility] Work Phone: Start: 06-06-2020 End: 06-06-2020 Tobacco smoking status NHIS Smoker (finding) [facility] Start: 1965 Sex Assigned At Female F [facility] Start: 05-08-2020 End: 03-10-2023 Sex Assigned At [facility] Start: 02-24-2023 [facility] History of tobacco use Cigarette Smoker P [facility] Start: 02-24-2023 Tobacco use and exposure User of smokeless tobacco [facility] Start: 02-24-2023 End: 03-10-2023 Alcohol intake Current drinker of alcohol (finding) [facility] Start: 05-08-2020 End: 03-10-2023 History of Social function [facility] Are you worried or concerned that in the next two months you may not have stable housing that you own, rent or stay in as a part of a household? No [facility] Start: 01-12-2019 Alcohol Comment once in a great whil e [facility] Medical Equipment Procedure Code Equipment Code Equipment Origin al Text Equipment Identifier Dates Gft Bn Ricardo Cnc 15cc Frzdr - [id number] - [id number] Start: 01-12-2019 Patch Dura 16x10 cm Drgrd Bvn Pricrd Strl Lf - [id number] Start: 12-26-2022 Plt Bn 41mm +20d Oblq L 3 - Sna - [id number] Start: 01-12-2019 Scr Bn Ricardo 2.4m m 16mm Strdrv - Sna - [id number] Start: 01-12-2019 Goals Date Patient Goal [...] call today 03/02/23 8:46 from Abi at [facility] who stated that patient had craniotomy a couple months ago and she's noticed in the last few days that it is more swollen. She wanted to know if this was measured after she had the procedure and is requesting call back for medical advice. Please call back and advise, direct callback#: [phone]. Will need to call neurosurgery. Called Abi [...] CT scan that is scheduled on 06/10/2023. Quality Manager did inform her that neurosurgery was not [...] appt to the same day. Please advise. Quality Manager received a call from Daysi with [facility]. Daysi is asking if appointment that is scheduled for 05/05/2023 at 9:30 could please be scheduled on the same day with Neurosurgery appointment. Appointment with Neurosurgery is 06/14/2023 at 2:30pm. Daysi is requesting appointment to either before 2:30pm or after, as long as it is on the same day. Please Advise. Daysi is requesting a call back [phone] to further discuss. Thank you so much Called facility back and it rang until it changed to busy tone Called transportation back and no answer This patient follows care under the fellows and they are only here on afternoons. Called [facility] Lashaun answered they're trying to make the appts on the same day so that its easier on the patient. She is going to talk to Dr Hutchinson office and see if they have something they may correlate on a Received call today 04/07/23 1:43 from [facility] is requesting a call back in regard to previous message. She said that she got some dates/times from the other provider's office. Please call back and advise, callback#: [phone]. Spoke with Lashaun and correlated Dr Hutchinson appt on the same day as ours documented in this encounter [facility] 03-02-2023 Telephone encount er Note Received call today 03/02/23 8:46 from Abi at [facility] who stated that patient had craniotomy a couple months ago and she's noticed in the last few days that it is more swollen. She wanted to know if this was measured after she had the procedure and is requesting call back for medical advice. Please call back and advise, direct callback#: [phone]. [facility] 03-02-2023 Telephone encount er Note Will need to call neurosurgery. [facility] 03-02-2023 Telephone encount er Note Called Abi and informed her that if it is about surgery site, she should call neurosurgery and provided the number for it. She voiced understanding. [facility] 03-02-2023 Telephone encount er Note Daysi with Transportation is asking for the appointment (05/05/2023) with stroke to rescheduled on same day with the patients appointment (06/09/2023) with neurosurgery. Also, she is asking for the appointment to be schedule after the CT scan that is scheduled on 06/10/2023. Quality Manager did inform her that neurosurgery was not in our office, she asked to clinical staff to make arrangements with neurosurgery. Please advise [facility] 03-02-2023 Telephone encount er Note Daysi contacted our office back stating that both appts (neurology and neurosurgery) need to be moved to after the appt for her CT scan which is on 06/10/2023. She was transferred to Neurosurgery to reschedule that appt and once that appt is rescheduled we could possibly reschedule our appt to the same day. Please advise. [facility] 03-02-2023 Telephone encount er Note Quality Manager received a call from Daysi with [facility]. Daysi is asking if appointment that is scheduled for 05/05/2023 at 9:30 could please be scheduled on the same day with Neurosurgery appointment. Appointment with Neurosurgery is 06/14/2023 at 2:30pm. Daysi is requesting appointment to either before 2:30pm or after, as long as it is on the same day. Please Advise. Daysi is requesting a call back [phone] to further discuss. Thank you so much [facility] 03-02-2023 Telephone encount er Note Called facility back and it rang until it changed to busy tone Called transportation back and no answer This patient follows care under the fellows and they are only here on afternoons. [facility] 03-02-2023 Telephone encount er Note Called facility Lashaun answered they're trying to make the appts on the same day so that its easier on the patient. She is going to talk to Dr Hutchinson office and see if they have something they may correlate on a [facility] 03-02-2023 Telephone encount er Note Received call today 04/07/23 1:43 from Tere at [facility] and [facility] who is requesting a call back in regard to previous message. She said that she got some dates/times from the other provider's office. Please call back and advise, callback#: [phone]. [facility] 03-02-2023 Telephone encount er Note Spoke with Lashaun and correlated Dr Hutchinson appt on the same day as ours [facility] 12-29-2020 Evaluation note Encounter Date Diagnosis Assessment [...] Patient care instructions given in writting by [facility] Care At Home document. 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 Physician Order 01/18/2023 4:20 PM Latest Code Status on File Code Status Date Activated Date Inactivated Comments DNR Comfort Care Arrest (DNR-CCA) [place] 12/31/2022 11:45 AM 01/11/2023 7:55 PM Code Status History Code Status Date Activated Date Inactivated Comments Full Code 12/26/2022 4:32 AM 12/31/2022 11:45 AM Documents on File Type Date 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 Order 01/18/2023 4:20 PM Latest Code Status on File Code Status Date Activated Date Inactivated Comments DNR Comfort Care Arrest (DNR-CCA) [place] 12/31/2022 11:45 AM 01/11/2023 7:55 PM Code Status History Code Status Date Activated Date Inactivated Comments Full Code 12/26/2022 4:32 AM 12/31/2022 11:45 AM Reason for Referral Status Reason Specialty Diagnoses / Procedures Referre d By Contact Referred To Contact Closed Radiology Diagnoses Right knee pain, unspecified chronicity Procedures MRI KNEE RIGHT WO CONTRAST Alex Thomason MD [facility] [place] [address] Specialty Diagnoses / Procedures Referred By Contac t Referred To Contact Procedures Botox Injection For Cervical Dystonia Valentin Velarde MD [address] [facility] [place] [address] Referral ID Status Reason Start Date Expiration Date V isits Requested Visits Authorized [id number] Pending Review 05/23/2023 05/22/2024 4 4 Assessments Diagnosis Right knee pain, unspecified chronicity Chief Complaint and Reason for Visit Chief Complaint Knee Pain Chief Complaint Knee Pain Knee Pain Additional Source Comments INFORMATION SOURCE (unrecogn ized section and content) DATE CREATED AUTHOR 03/30/2018 [facility]ie [place] [facility] DATE CREATED AUTHOR AUTHOR'S ORGANIZ ATION 05/12/2020 [facility] DATE CREATED AUTHOR AUTHOR'S ORGANIZ ATION 03/16/2021 [facility] DATE CREATED AUTHOR AUTHOR'S ORGANIZ ATION 08/03/2022 [facility] DATE CREATED AUTHOR AUTHOR'S ORGANIZ ATION 11/05/2023 [facility] DATE CREATED AUTHOR AUTHOR'S ORGANIZ ATION 12/11/2023 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 [facility] [employer] [facility]. provides no warranty or guarantee of the accuracy or completeness of information in this document.
[2024-01-20 09:18] LABS: Estimated GFR (African America >60 (>=60 mL/min/1.73m^2); Estimated GFR (Non-African Ame >60 (>=60 mL/min/1.73m^2)
== END 2024-01-20 08:52 | disposition home or self-care (01) ==
LOC: MRI 08:51
PROVIDERS: PCP Family Medicine; Visit Provider Family Medicine
DX: Z01.812 Encounter for preprocedural laboratory examination (principal); Z01.818 Encounter for other preprocedural examination; E07.9 Disorder of thyroid, unspecified; N28.89 Other specified disorders of kidney and ureter
CPT/HCPCS: 36415; 70250; 82565

== ENCOUNTER 2024-01-23 17:06 | Outpatient (REF) | payer OTHER, SELFPAY ==
--- OUTSIDE RECORDS SUMMARY | 2024-01-23 17:12 | XMS_ITS | CCD ---
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 Name Role Phone Nill, Gala R Unavailable Unavailable Nill, Gala R Unavailable Unavailable Nill, Gala R Unavailable Unavailable Alex Thomason~[phone] UNKNOWN Unavailable Unavailable ALEX THOMASON Referring Unavailable ALEX THOMASON Primary Care Unavailable Alex Thomason Primary Care Provider [phone] Alex Thomason Primary Care Provider [phone] Sesar Gutiérrez Attending Provider [phone] Chhaya Spivey Unavailable SHREYAS ., DR [...] Unavailable HOY ., DR ONTIVEROS Consulting Unavailable MUNCIE, DR FRANCES Del Valle Consulting Unavailable FRANCES NICHOLS Consulting Unavailable Alex Thomason MD Primary Care Provider [phone] ALEX THOMASON Referring Unavailable ALEX THOMASON M [...] Medication Allergies] Propensity to adverse reactions (disorder) [facility] Repository Medications Current Medications Medication Drug Class(es) [...] 9:50am docusate sodium 50 mg / sennosides, senior care 8.6 mg oral tablet (2 sources) take [...] needed. 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] Onset: 02-27-2022 Episodic Other [...] Cheung MD on 12/06/2023 9:45 AM Normal [facility] CT CTA CHESTon 12-06-2023 CT CTA [...] Art Gale on 12/06/2023 2:35 PM Normal [facility] BASIC METABOLIC PANLon 10-11 Anion gap [Moles/Vol] 7 mmol/L Normal 5-15 [facility] Comment on above: Performed By: #### C BCA, BMP #### [facility] ([id number]) [address], [address] [place] [address] Calcium [Mass/Vol] 8.9 mg/dL Normal 8.5-10.5 [facility] Comment on above: Performed By: #### C BCA, BMP #### [facility] ([id number]) [address], [address] [place] [address] Chloride [Moles/Vol] 105 mmol/L Normal 98-109 [facility] Comment on above: Performed By: #### C MINH, BMP #### [facility] ([id number]) [address], [address] [place] [address] CO2 [Moles/Vol] 27 mmol/L Normal 22-32 [facility] Comment on above: Performed By: #### C BCA, BMP #### [facility] ([id number]) [address], [address] [place] [address] Creatinine [Mass/Vol] 0.50 mg/dL Normal 0.40-1.00 [facility] Comment on above: Result Comment: METH OD TRACEABLE TO IDMS STANDARD Performed By: #### C MINH, BMP #### [facility] ([id number]) [address], [address] [place] [address] eGFR (CKD-EPI) NON-RACE DEPENDENT >90 Normal >59 [facility] Comment on above: Result Comment: Reported eGFR is based on the CKD-EPI 2020 equation that does not use a race coefficient. Performed By: #### C BCA, BMP #### [facility] ([id number]) [address], [address] [place] [address] Glucose [Mass/Vol] 99 mg/dL Normal 65-99 [facility] Comment on above: Performed By: #### C BCA, BMP #### [facility] ([id number]) [address], [address] [place] [address] Potassium [Moles/Vol] 3.6 mmol/L Normal 3.5-5.0 [facility] Comment on above: Performed By: #### C BCA, BMP #### [facility] ([id number]) [address], [address] [place] [address] Sodium [Moles/Vol] 139 mmol/L Normal 134-146 [facility] Comment on above: Performed By: #### C BCA, BMP #### [facility] ([id number]) [address], [address] [place] [address] Urea nitrogen [Mass/Vol] 15 mg/dL Normal 5-23 [facility] Comment on above: Performed By: #### C BCA, BMP #### [facility] ([id number]) [address], [address] [place] [address] CBC AND AUTO DIFFon 10-12-19 Erythrocyte distribution width (RBC) [Ratio] 14.3 % Normal 11.5-15.0 [facility] Comment on above: Performed By: #### C BCA, BMP #### [facility] ([id number]) [address], [address] [place] [address] Hematocrit (Bld) [Volume fraction] 27.9 % Low 35-47 [facility] Comment on above: Performed By: #### C BCA, BMP #### [facility] ([id number]) [address], [address] [place] [address] Hemoglobin (Bld) [Mass/Vol] 9.5 g/dL Low 11.7-15.5 [facility] Comment on above: Performed By: #### C BCA, BMP #### [facility] ([id number]) [address], [facility] [address] [place] [address] Lymphocytes (Bld) [#/Vol] 2.9 10*3/uL Normal 1.0-3.5 [facility] Comment on above: Performed By: #### C BCA, BMP #### [facility] ([id number]) [address], [address] [place] [address] Lymphocytes/100 WBC (Bld) 42.0 % Normal [facility] Comment on above: Performed By: #### C MINH, BMP #### [facility] ([id number]) [address], [address] [place] [address] MCH (RBC) [Entitic mass] 40.3 pg High 27-34 [facility] Comment on above: Performed By: #### C MINH, BMP #### [facility] ([id number]) [address], [address] [place] [address] MCHC (RBC) [Mass/Vol] 34.1 g/dL Normal 32-36 [facility] Comment on above: Performed By: #### C MINH, BMP #### [facility] ([id number]) [address], [address] [place] [address] MCV (RBC) [Entitic vol] 118 fL High 80-100 [facility] Comment on above: Performed By: #### C MINH, BMP #### [facility] ([id number]) [address], [address] [place] [address] Monocytes (Bld) [#/Vol] 0.3 10*3/uL Normal 0-0.9 [facility] Comment on above: Performed By: #### C MINH, BMP #### [facility] ([id number]) [address], [address] [place] [address] Monocytes/100 WBC (Bld) 4.0 % Normal [facility] Comment on above: Performed By: #### C BCA, BMP #### [facility] ([id number]) [address], [address] [place] [address] Neutrophils (Bld) [#/Vol] 3.8 10*3/uL Normal 1.5-6.6 [facility] Comment on above: Performed By: #### C MINH, BMP #### [facility] ([id number]) [address], [address] [place] [address] OVALOCYTE 1+ Abnormal NONE [facility] Comment on above: Performed By: #### C MINH, BMP #### [facility] ([id number]) [address], [address] [place] [address] Platelet mean volume (Bld) [Entitic vol] 8.4 fL Normal 7-12 [facility] Comment on above: Performed By: #### C MINH, BMP #### [facility] ([id number]) [address], [address] [place] [address] Platelets (Bld) [#/Vol] 200 10*3/uL Normal 150-450 [facility] Comment on above: Performed By: #### C MINH, BMP #### [facility] ([id number]) [address], [address] [place] [address] POLYCHROMASIA 1+ Abnormal NONE [facility] Comment on above: Performed By: #### C MINH, BMP #### [facility] ([id number]) [address], [address] [place] [address] RBC COUNT 2.36 X10E12/L Low 3.80-5.20 [facility] Comment on above: Performed By: #### C MINH, BMP #### [facility] ([id number]) [address], [address] [place] [address] SEG NEUTROPHIL 54.0 % Normal [facility] Comment on above: Performed By: #### C MINH, BMP #### [facility] ([id number]) [address], [address] [place] [address] WBC (Bld) [#/Vol] 7.0 10*3/uL Normal 4.0-11.0 [facility] Comment on above: Performed By: #### C MINH, BMP #### [facility] ([id number]) [address], [address] [place] [address] BASIC METABOLIC PANLon 10-10 Anion gap [Moles/Vol] 9 mmol/L Normal 5-15 [facility] Comment on above: Performed By: #### C BC, BMP #### [facility] ([id number]) [address], [address] [place] [address] Calcium [Mass/Vol] 9.0 mg/dL Normal 8.5-10.5 [facility] Comment on above: Performed By: #### C BC, BMP #### [facility] ([id number]) [address], [address] [place] [address] Chloride [Moles/Vol] 105 mmol/L Normal 98-109 [facility] Comment on above: Performed By: #### C BC, BMP #### [facility] ([id number]) [address], [address] [place] [address] CO2 [Moles/Vol] 25 mmol/L Normal 22-32 [facility] Comment on above: Performed By: #### C BC, BMP #### [facility] ([id number]) [address], [address] [place] [address] Creatinine [Mass/Vol] 0.45 mg/dL Normal 0.40-1.00 [facility] Comment on above: Result Comment: METH OD TRACEABLE TO IDMS STANDARD Performed By: #### C BC, BMP #### [facility] ([id number]) [address] [address] [place] [address] eGFR (CKD-EPI) NON-RACE DEPENDENT >90 Normal >59 [facility] Comment on above: Result Comment: Reported eGFR is based on the CKD-EPI 2020 equation that does not use a race coefficient. Performed By: #### C BC, BMP #### [facility] ([id number]) [address] [place] [address] Glucose [Mass/Vol] 127 mg/dL High 65-99 [facility] Comment on above: Performed By: #### C FLAKITO, BMP #### [facility] ([id number]) [address], [address] [place] [address] Potassium [Moles/Vol] 3.6 mmol/L Normal 3.5-5.0 [facility] Comment on above: Performed By: #### C FLAKITO, BMP #### [facility] ([id number]) [address], [address] [place] [address] Sodium [Moles/Vol] 139 mmol/L Normal 134-146 [facility] Comment on above: Performed By: #### Amanda FRAGA, BMP #### [facility] ([id number]) [address], [address] [place] [address] Urea nitrogen [Mass/Vol] 15 mg/dL Normal 5-23 [facility] Comment on above: Performed By: #### Amanda FRAGA, BMP #### [facility] ([id number]) [address], [address] [place] [address] COMPLETE BLOOD COUNTon 10-10 Erythrocyte distribution width (RBC) [Ratio] 14.1 % Normal 11.5-15.0 [facility] Comment on above: Performed By: #### Amanda FRAGA, BMP #### [facility] ([id number]) [address], [address] [place] [address] Hematocrit (Bld) [Volume fraction] 30.6 % Low 35-47 [facility] Comment on above: Performed By: #### C FLAKITO, BMP #### [facility] ([id number]) [address], [address] [place] [address] Hemoglobin (Bld) [Mass/Vol] 10.6 g/dL Low 11.7-15.5 [facility] Comment on above: Performed By: #### C FLAKITO, BMP #### [facility] ([id number]) [address], [address] [place] [address] MCH (RBC) [Entitic mass] 40.5 pg High 27-34 [facility] Comment on above: Performed By: #### Amanda FRAGA, BMP #### [facility] ([id number]) [address], [address] [place] [address] MCHC (RBC) [Mass/Vol] 34.6 g/dL Normal 32-36 [facility] Comment on above: Performed By: #### C FLAKITO, BMP #### [facility] ([id number]) [address], [address] [place] [address] MCV (RBC) [Entitic vol] 117 fL High 80-100 [facility] Comment on above: Performed By: #### Amanda FRAGA, BMP #### [facility] ([id number]) [address], [address] [place] [address] Platelet mean volume (Bld) [Entitic vol] 8.1 fL Normal 7-12 [facility] Comment on above: Performed By: #### Amanda FRAGA, BMP #### [facility] ([id number]) [address], [address] [place] [address] Platelets (Bld) [#/Vol] 220 10*3/uL Normal 150-450 [facility] Comment on above: Performed By: #### Amanda FRAGA, BMP #### [facility] ([id number]) [address] [place] [address] RBC COUNT 2.62 X10E12/L Low 3.80-5.20 [facility] Comment on above: Performed By: #### Amanda FRAGA, BMP #### [facility] ([id number]) [address], [address] [place] [address] WBC (Bld) [#/Vol] 5.3 10*3/uL Normal 4.0-11.0 [facility] Comment on above: Performed By: #### C BC, BMP #### [facility] ([id number]) [address] [facility], [address] [place] [address] CT [address]RAIN WO CONTon CT BRAIN WO [...] Jeffers MD on 10/11/2023 2:29 AM Normal [facility] Glucose Glucometer (BldC) [M ass/Vol]on 10-10-2023 Glucose [Mass/Vol] 133 mg/dL High 65-99 [facility] BASIC METABOLIC PANLon 10-04 Anion gap [Moles/Vol] 8 mmol/L Normal 5-15 [facility] Comment on above: Performed By: #### U A #### [facility] ([id number]) [address] [place] [address], [place] [address] Calcium [Mass/Vol] 9.8 mg/dL Normal 8.5-10.5 [facility] Comment on above: Performed By: #### U A #### [facility] ([id number]) [address] [place] [address] Chloride [Moles/Vol] 104 mmol/L Normal 98-109 [facility] Comment on above: Performed By: #### U A #### [facility] ([id number]) [address] [place] [address] CO2 [Moles/Vol] 28 mmol/L Normal 22-32 [facility] Comment on above: Performed By: #### U A #### [facility] ([id number]) [address] [place] [address] Creatinine [Mass/Vol] 0.63 mg/dL Normal 0.40-1.00 [facility] Comment on above: Result Comment: METH OD TRACEABLE TO IDMS STANDARD Performed By: #### U A #### [facility] ([id number]) [address] [place] [address] [place] [address] eGFR (CKD-EPI) NON-RACE DEPENDENT >90 Normal >59 [facility] Comment on above: Result Comment: Reported eGFR is based on the CKD-EPI 2020 equation that does not use a race coefficient. Performed By: #### U A #### [facility] ([id number]) [address] [place] [address] Glucose [Mass/Vol] 92 mg/dL Normal 65-99 [facility] Comment on above: Performed By: #### U A #### [facility] ([id number]) [address] [place] [address] Potassium [Moles/Vol] 4.7 mmol/L Normal 3.5-5.0 [facility] Comment on above: Performed By: #### U A #### [facility] ([id number]) [address] [place] [address] Sodium [Moles/Vol] 140 mmol/L Normal 134-146 [facility] Comment on above: Performed By: #### U A #### [facility] ([id number]) [address] [place] [address] Urea nitrogen [Mass/Vol] 18 mg/dL Normal 5-23 [facility] Comment on above: Performed By: #### U A #### [facility] ([id number]) [address] [place] [address] BLOOD CULTUREon 10-05-2023 Bacteria identified Aer cx Nom (Bld) SPECIMEN NOTES SUBOPTIMAL VOLUME OF BLOOD COLLECTED, RESULTS MAY BE AFFECTED. CULTURE RESULTS NO GROWTH 5 DAYS Normal [facility] Comment on above: Performed By: #### U A #### [facility] ([id number]) [address] [place] [address] Bacteria identified Aer cx Nom (Bld) SPECIMEN NOTES RIGHT ANTECUBITAL CULTURE RESULTS NO GROWTH 5 DAYS Normal [facility] Comment on above: Performed By: #### U A #### [facility] ([id number]) [address] [place] [address] CBC AND AUTO DIFFon 10-05-19 24 Erythrocyte distribution width (RBC) [Ratio] 14.6 % Normal 11.5-15.0 [facility] Comment on above: Performed By: #### P INR, 74872-5 #### [facility] ([id number]) [address] [place] [address] #### CBCA, 63534-4, BMP, 1987- #### [facility] ([id number]) [address] [facility], [address] [place] [address] Hematocrit (Bld) [Volume fraction] 36.6 % Normal 35-47 [facility] Comment on above: Performed By: #### P INR, 59808-1 #### [facility] ([id number]) [address] [place] [address] #### CBCA, 01655-6, [facility], 1987-07 #### [facility] ([id number]) [address] [place] [address] Hemoglobin (Bld) [Mass/Vol] 12.3 g/dL Normal 11.7-15.5 [facility] Comment on above: Performed By: #### P INR, 49348-1 #### [facility] ([id number]) [address] [place] [address] #### CBCA, 09472-5, [facility], 1987-07 #### [facility] ([id number]) [address] [place] [address] Lymphocytes (Bld) [#/Vol] 1.7 10*3/uL Normal 1.0-3.5 [facility] Comment on above: Performed By: #### P INR, 77590-5 #### [facility] ([id number]) [address] [place] [address] #### CBCLilian, 05850-7, [facility], 1987-07 #### [facility] ([id number]) [address] [place] [address] Lymphocytes/100 WBC (Bld) 59.0 % Normal [facility] Comment on above: Performed By: #### P INR, 97500-2 #### [facility] ([id number]) [address] [place] [address] #### CBCA, 81278-2, BMP, 1987-07 #### [facility] ([id number]) [address] [place] [address] MCH (RBC) [Entitic mass] 39.7 pg High 27-34 [facility] Comment on above: Performed By: #### P INR, 81078-5 #### [facility] ([id number]) [address] [place] [address] #### CBCA, 02873-7, BMP, 1987-07 #### [facility] ([id number]) [address] [place] [address] MCHC (RBC) [Mass/Vol] 33.5 g/dL Normal 32-36 [facility] Comment on above: Performed By: #### P INR, 90477-9 #### [facility] ([id number]) [address] [place] [address] #### CBCA, 90345-7, BMP, 1987-07 #### [facility] ([id number]) [address] [place] [address] MCV (RBC) [Entitic vol] 119 fL High 80-100 [facility] Comment on above: Performed By: #### P INR, 91574-3 #### [facility] ([id number]) [address] [place] [address] #### CBCA, 52364-6, BMP, 1987-07 #### [facility] ([id number]) [address] [place] [address] Monocytes (Bld) [#/Vol] 0.2 10*3/uL Normal 0-0.9 [facility] Comment on above: Performed By: #### P INR, 06476-5 #### [facility] ([id number]) [address] [place] [address] #### CBCA, 02278-8, BMP, 1987-07 #### [facility] ([id number]) [address] [place] [address] Monocytes/100 WBC (Bld) 7.0 % Normal [facility] Comment on above: Performed By: #### P INR, 08083-9 #### [facility] ([id number]) [address] [place] [address] #### CBCA, 98560-5, BMP, 1987-07 #### [facility] ([id number]) [address] [place] [address] Neutrophils (Bld) [#/Vol] 1.0 10*3/uL Low 1.5-6.6 [facility] Comment on above: Performed By: #### P INR, 75863-0 #### [facility] ([id number]) [address] [place] [address] #### CBCA, 05219-3, BMP, 1987-07 #### [facility] ([id number]) [address] [place] [address] Platelet mean volume (Bld) [Entitic vol] 8.7 fL Normal 7-12 [facility] Comment on above: Performed By: #### P INR, 33463-5 #### [facility] ([id number]) [address] [place] [address] #### CBCA, 52159-0, BMP, 1987-07 #### [facility] ([id number]) [address] [place] [address] Platelets (Bld) [#/Vol] 290 10*3/uL Normal 150-450 [facility] Comment on above: Performed By: #### P INR, 71614-3 #### [facility] ([id number]) [address] [place] [address] #### CBCA, 63986-5, BMP, 1987-07 #### [facility] ([id number]) [address] [place] [address] RBC COUNT 3.08 X10E12/L Low 3.80-5.20 [facility] Comment on above: Performed By: #### P INR, 21195-5 #### [facility] ([id number]) [address] [place] [address] #### CBCA, 96509-2, BMP, 1987-07 #### [facility] ([id number]) [address] [place] [address] RBC morphology finding Nom (Bld) NORMAL Normal [facility] Comment on above: Performed By: #### P INR, 30037-5 #### [facility] ([id number]) [address] [place] [address] #### CBCA, 05496-0, BMP, 1987-07 #### [facility] ([id number]) [address] [facility] [place] [address] SEG NEUTROPHIL 34.0 % Normal [facility] Comment on above: Performed By: #### P INR, 00621-5 #### [facility] ([id number]) [address] [place] [address] #### CBCA, 20502-6, BMP, 1987-07 #### [facility] ([id number]) [address] [facility] [place] [address] WBC (Bld) [#/Vol] 2.9 10*3/uL Low 4.0-11.0 [facility] Comment on above: Performed By: #### P INR, 43074-7 #### [facility] ([id number]) [address] [place] [address] #### CBCA, 35363-0, BMP, 1987-07 #### [facility] ([id number]) [address] [facility] [place] [address] CRP [Mass/Vol]on 10-05-2023 C REACTIVE PROTEIN 0.1 mg/dL Normal 0.000-0.7 4 4 [facility] Comment on above: Performed By: #### U A #### [facility] ([id number]) [address] [place] [address] ESR Photometric method (Bld) [Velocity]on 10-05-2023 ESR, ERYTHROCYTE SEDIMENTATION RATE 1 mm/h Normal 0-30 [facility] Comment on above: Performed By: #### U A #### [facility] ([id number]) [address] [place] [address] PROTIME AND INRon 10-05-2023 INR Coag (PPP) [Relative time] 1.0 {INR} Normal 0.8-1.1 [facility] Comment on above: Performed By: #### P INR, 46204-5 #### [facility] ([id number]) [address] [place] [address] #### CBCA, 03518-0, BMP, 1987-07 #### [facility] ([id number]) [address], [address] [place] [address] PT Coag (PPP) [Time] 12.1 s Normal 9.8-13.2 [facility] Comment on above: Result Comment: NEW REFERENCE RANGE Performed By: #### P INR, 59790-0 #### [facility] ([id number]) [address] [place] [address] #### CBCA, 32159-1, BMP, 1987-07 #### [facility] ([id number]) [address], [address] [place] [address] aPTT Coag (PPP) [Time]on aPTT Coag (Bld) [Time] 25 s Low 26-37 [facility] Comment on above: Result Comment: NEW REFERENCE RANGE Performed By: #### P INR, 07884-9 #### [facility] ([id number]) [address] [place] [address] #### CBCA, 69487-9, BMP, 1987- #### [facility] ([id number]) [address], [address] [place] [address] URINALYSISon 10-02-2023 Bilirubin Ql (U) Negative Normal NEG [facility] Comment on above: Performed By: #### U A #### [facility] ([id number]) [address] [place] [address] BLOOD/HGB Negative Normal NEG [facility] Comment on above: Performed By: #### U A #### [facility] ([id number]) [address] [place] [address]103 Color (U) YELLOW Normal YELLOW [facility] Comment on above: Performed By: #### U A #### [facility] ([id number]) [address] [place] [address] 11415 Glucose Ql (U) Negative Normal NEG [facility] Comment on above: Performed By: #### U A #### [facility] ([id number]) [address] [place] [address] 87794 Ketones Ql (U) Negative Normal NEG [facility] Comment on above: Performed By: #### U A #### [facility] ([id number]) [address] [place] [address] 14651 Leukocyte esterase Test strip Ql (U) Trace Abnormal NEG [facility] Comment on above: Performed By: #### U A #### [facility] ([id number]) [address] [place] [address] 40706 Nitrite Ql (U) Positive Abnormal NEG [facility] Comment on above: Performed By: #### U A #### [facility] ([id number]) [address] [place] [address] 76338 pH (U) 7.5 [pH] Normal 5.0-8.5 [facility] Comment on above: Performed By: #### U A #### [facility] ([id number]) [address] [place] [address] 79836 Protein Ql (U) Negative Normal NEG [facility] Comment on above: Performed By: #### U A #### [facility] ([id number]) [address] [place] [address] 04376 R.B.CELLS 0 /hpf Normal 0-5 [facility] Comment on above: Performed By: #### U A #### [facility] ([id number]) [address] [place] [address] 21210 Specific gravity (U) [Rel density] 1.020 Normal 1.003-1.03 5 [facility] Comment on above: Performed By: #### U A #### [facility] ([id number]) [address] [place] [address] 18351 SQUAMOUS EPITHELIUM 12 /hpf High 0-5 [facility] Comment on above: Performed By: #### U A #### [facility] ([id number]) [address] [place] [address] [place] [address] TURBIDITY CLOUDY Abnormal CLEAR [facility] Comment on above: Performed By: #### U A #### [facility] ([id number]) [address] [place] [address] 27557 Urobilinogen Qn (U) 1.0 {Tra'U}/dL Normal <1.1 [facility] Comment on above: Performed By: #### U A #### [facility] ([id number]) [address] [place] [address] [place] [address] W.B.CELLS 5 /hpf Normal 0-5 [facility] Comment on above: Performed By: #### U A #### [facility] ([id number]) [address] [place] [address] BASIC METABOLIC PANLon 09-29 Anion gap [Moles/Vol] 8 mmol/L Normal 5-15 [facility] Comment on above: Performed By: #### C BCA, BMP #### [facility] ([id number]) [address], [address] [place] [address] Calcium [Mass/Vol] 10.1 mg/dL Normal 8.5-10.5 [facility] Comment on above: Performed By: #### C BCA, BMP #### [facility] ([id number]) [address], [address] [place] [address] Chloride [Moles/Vol] 104 mmol/L Normal 98-109 [facility] Comment on above: Performed By: #### C BCA, BMP #### [facility] ([id number]) [address], [address] [place] [address] CO2 [Moles/Vol] 28 mmol/L Normal 22-32 [facility] Comment on above: Performed By: #### C BCA, BMP #### [facility] ([id number]) [address], [address] [place] [address] Creatinine [Mass/Vol] 0.62 mg/dL Normal 0.40-1.00 [facility] Comment on above: Result Comment: METH OD TRACEABLE TO IDMS STANDARD Performed By: #### C BCA, BMP #### [facility] ([id number]) [address], [address] [place] [address] eGFR (CKD-EPI) NON-RACE DEPENDENT >90 Normal >59 [facility] Comment on above: Result Comment: Reported eGFR is based on the CKD-EPI 2020 equation that does not use a race coefficient. Performed By: #### C BCA, BMP #### [facility] ([id number]) [address] [address] [place] [address] Glucose [Mass/Vol] 99 mg/dL Normal 65-99 [facility] Comment on above: Performed By: #### C BCA, BMP #### [facility] ([id number]) [address] [address] [place] [address] Potassium [Moles/Vol] 3.8 mmol/L Normal 3.5-5.0 [facility] Comment on above: Performed By: #### C BCA, BMP #### [facility] ([id number]) [address] [address] Sodium [Moles/Vol] 140 mmol/L Normal 134-146 [facility] Comment on above: Performed By: #### C BCA, BMP #### [facility] ([id number]) [address] [address] [place] [address] Urea nitrogen [Mass/Vol] 15 mg/dL Normal 5-23 [facility] Comment on above: Performed By: #### C BCA, BMP #### [facility] ([id number]) [address] [address] CBC AND AUTO DIFFon 09-30-19 24 Eosinophils (Bld) [#/Vol] 0.0 10*3/uL Normal 0.0-0.4 [facility] Comment on above: Performed By: #### C BCA, BMP #### [facility] ([id number]) [address] [address] Eosinophils/100 WBC (Bld) 1.0 % Normal [facility] Comment on above: Performed By: #### C BCA, BMP #### [facility] ([id number]) [address] [place] [address] Erythrocyte distribution width (RBC) [Ratio] 15.0 % Normal 11.5-15.0 [facility] Comment on above: Performed By: #### Amanda WILKINSON, BMP #### [facility] ([id number]) [address] [place] [address] Hematocrit (Bld) [Volume fraction] 38.6 % Normal 35-47 [facility] Comment on above: Performed By: #### C MINH, BMP #### [facility] ([id number]) [address], [facility] [address] [place] [address] Hemoglobin (Bld) [Mass/Vol] 12.9 g/dL Normal 11.7-15.5 [facility] Comment on above: Performed By: #### C MINH, BMP #### [facility] ([id number]) [address], [address] [place] [address] Lymphocytes (Bld) [#/Vol] 1.6 10*3/uL Normal 1.0-3.5 [facility] Comment on above: Performed By: #### Amanda WILKINSON, BMP #### [facility] ([id number]) [address], [address] [place] [address] Lymphocytes/100 WBC (Bld) 49.0 % Normal [facility] Comment on above: Performed By: #### Amanda WILKINSON, BMP #### [facility] ([id number]) [address] [address] [place] [address] MCH (RBC) [Entitic mass] 39.9 pg High 27-34 [facility] Comment on above: Performed By: #### C MINH, BMP #### [facility] ([id number]) [address] [address] [place] [address] MCHC (RBC) [Mass/Vol] 33.5 g/dL Normal 32-36 [facility] Comment on above: Performed By: #### C MINH, BMP #### [facility] ([id number]) [address], [address] [place] [address] MCV (RBC) [Entitic vol] 119 fL High 80-100 [facility] Comment on above: Performed By: #### C MINH, BMP #### [facility] ([id number]) [address], [address] [place] [address] Monocytes (Bld) [#/Vol] 0.4 10*3/uL Normal 0-0.9 [facility] Comment on above: Performed By: #### C MINH, BMP #### [facility] ([id number]) [address] [place] [address] Monocytes/100 WBC (Bld) 11.0 % Normal [facility] Comment on above: Performed By: #### C MINH, BMP #### [facility] ([id number]) [address] [place] [address] Neutrophils (Bld) [#/Vol] 1.2 10*3/uL Low 1.5-6.6 [facility] Comment on above: Performed By: #### C MINH, BMP #### [facility] ([id number]) [address], [address] [place] [address] Platelet mean volume (Bld) [Entitic vol] 8.5 fL Normal 7-12 [facility] Comment on above: Performed By: #### C MINH, BMP #### [facility] ([id number]) [address], [address] [place] [address] Platelets (Bld) [#/Vol] 316 10*3/uL Normal 150-450 [facility] Comment on above: Performed By: #### C MINH, BMP #### [facility] ([id number]) [address], [address] [place] [address] RBC COUNT 3.24 X10E12/L Low 3.80-5.20 [facility] Comment on above: Performed By: #### Amanda WILKINSON, BMP #### [facility] ([id number]) [address], [address] [place] [address] RBC morphology finding Nom (Bld) NORMAL Normal [facility] Comment on above: Performed By: #### Amanda WILKINSON, BMP #### [facility] ([id number]) [address], [facility] [address] [place] [address] SEG NEUTROPHIL 39.0 % Normal [facility] Comment on above: Performed By: #### Amanda WILKINSON, BMP #### [facility] ([id number]) [address], [address] [address] WBC (Bld) [#/Vol] 3.2 10*3/uL Low 4.0-11.0 [facility] Comment on above: Performed By: #### Amanda WILKINSON, BMP #### [facility] ([id number]) [address], [address] [address] BLOOD CULTUREon 09-26-2023 Bacteria identified Aer cx Nom (Bld) CULTURE RESULTS NO SPECIMEN RECEIVED IN LABORATORY ACCOUNT CREDITED Normal [facility] Comment on above: Performed By: #### 1 7928-3 #### [facility] ([id number]) [address], [address] [address] XR CHEST 2 VWSon 09-19-2023 XR CHEST [...] Xavier MD on 09/19/2023 2:40 PM Normal [facility] URINALYSISon 07-25-2023 Bilirubin Ql (U) Negative Normal NEG [facility] Comment on above: Performed By: #### U A #### [facility] ([id number]) [address] [place] [address] [place] [address] BLOOD/HGB Large Abnormal NEG [facility] Comment on above: Performed By: #### U A #### [facility] ([id number]) [address] [place] [address] [place] [address] CA OXALATE CRYSTALS PRESENT Abnormal NONE [facility] Comment on above: Performed By: #### U A #### [facility] ([id number]) [address] [place] [address] [place] [address] Color (U) YELLOW Normal YELLOW [facility] Comment on above: Performed By: #### U A #### [facility] ([id number]) [address] [place] [address] [place] [address] Glucose Ql (U) Negative Normal NEG [facility] Comment on above: Performed By: #### U A #### [facility] ([id number]) [address] [place] [address] [place] [address] Ketones Ql (U) Negative Normal NEG [facility] Comment on above: Performed By: #### U A #### [facility] ([id number]) [address] [place] [address] [place] [address] Leukocyte esterase Test strip Ql (U) SMALL Abnormal NEG [facility] Comment on above: Performed By: #### U A #### [facility] ([id number]) [address] [place] [address] Nitrite Ql (U) Positive Abnormal NEG [facility] Comment on above: Performed By: #### U A #### [facility] ([id number]) [address] [place] [address] pH (U) 6.0 [pH] Normal 5.0-8.5 [facility] Comment on above: Performed By: #### U A #### [facility] ([id number]) [address] [place] [address] Protein Ql (U) Negative Normal NEG [facility] Comment on above: Performed By: #### U A #### [facility] ([id number]) [address] [place] [address] R.B.CELLS 10 /hpf High 0-5 [facility] Comment on above: Performed By: #### U A #### [facility] ([id number]) [address] [place] [address] Specific gravity (U) [Rel density] 1.025 Normal 1.003-1.03 5 [facility] Comment on above: Performed By: #### U A #### [facility] ([id number]) [address] [place] [address] SQUAMOUS EPITHELIUM 10 /hpf High 0-5 [facility] Comment on above: Performed By: #### U A #### [facility] ([id number]) [address] [place] [address] [place] [address] TURBIDITY HAZY Abnormal CLEAR [facility] Comment on above: Performed By: #### U A #### [facility] ([id number]) [address] [place] [address] Urobilinogen Qn (U) 0.2 {Tra'U}/dL Normal <1.1 [facility] Comment on above: Performed By: #### U A #### [facility] ([id number]) [address] [place] [address] W.B.CELLS 31 /hpf High 0-5 [facility] Comment on above: Performed By: #### U A #### [facility] ([id number]) [address] [place] [address] URINE CULTUREon 07-25-2023 Bacteria identified Cx Nom [...] <=1 F TRIMETH/SULFAMETHOXAZOLE S <=1/19 F Susceptible [facility] Comment on above: Performed By: #### 6 30-4 #### [facility] ([id number]) [address] [facility] [place] [address] CT BRAIN WO CONTon [address] CT BRAIN WO CONT CT BRAIN WO CONT CLINICAL INFORMATION: Cerebrovascular accident (CVA), unspecified mechanism ([facility]) TECHNIQUE: CT BRAIN WO CONT CT [...] Richards MD on 06/10/2023 3:07 PM Normal [facility] CALCIUMon 08-02-2022 Calcium [Mass/Vol] 9.2 mg/dL Normal 8.5-10.1 [facility] Comment on above: Performed By: #### C A, CREA #### [facility] [address] [place], [place] [address] Dr. Carmelina Sarah CREATININEon 08-02-2022 Creatinine [Mass/Vol] 0.88 mg/dL Normal 0.55-1.02 [facility] Comment on above: Performed By: #### C A, CREA ####[facility] [address] [place] [address]DrMelly Sarah EGFR-AF IRAQI >60 Normal >=60 [facility] Comment on above: Performed By: #### C A, CREA ####[facility] [address] [place] [address]DrMelly Sarah EGFR-NON AF IRAQI >60 Normal >=60 [facility] Comment on above: Performed By: #### C A, CREA ####[facility] [address] [place] [address]Dr. Carmelina Sarah MG MAMM SCREEN 3D CONCEPCIÓN CADon 03-24-2022 MG MAMM SCREEN 3D CONCEPCIÓN CAD Patient: ANGELIQUE MELO Exam Date: 03/24/2022 : 1965 Gender:F Ordering : DR ALEX THOMASON . Admission #: [id number] Family : Order #: [id number] CLICK HERE TO VIEW EXAM RADIOLOGY REPORT [...] lymphoma cancer at age 44. LOCATION: [facility] BREAST COMPOSITION: Scattered areas fibroglandular density. FINDINGS: [...] Frances Quezada MD on 03/25/2022 at 08:12 [facility] XR DEXA BONE DENSITYon 03-24 XR DEXA BONE DENSITY DEXA Bone Density Study CLINICAL: Evaluate bone mineral density. Postmenopausal COMPARISON: None FINDINGS: The bone density study was assessed by dual-energy x-ray absorptiometry with the [employer] scanner. The test results are expressed in [...] FRANCES NICHOLS Date: 2022-03-24 09:29 Normal [facility] CBC AUTO DIFFon 02-22-2022 BASO # 0.3 103/ul Critically high 0.0-0.1 [facility] Comment on above: Performed By: #### C BC ####[facility] [address] [place], [place] [address]Dr. Carmelina Sarah Basophils/100 WBC (Bld) 3.0 % Critically high 0.2-2.0 [facility] Comment on above: Performed By: #### C BC ####[facility] [address] [place] [address]Dr. Yilan Sarah EO # 0.3 103/ul Normal 0.0-0.7 [facility] Comment on above: Performed By: #### C BC ####[facility] [address] [place], [place] [address]Dr. Yilan Sarah Eosinophils/100 WBC (Bld) 3.1 % Normal 0.9-7.0 [facility] Comment on above: Performed By: #### C BC ####[facility] [address] [place], [place] [address]Dr. Carmelina Sarah Erythrocyte distribution width (RBC) [Ratio] 15.8 % Critically high 11.0-15.0 [facility] Comment on above: Performed By: #### C BC ####[facility] [address] [place] [address]Dr. Carmelina Sarah Hematocrit (Bld) [Volume fraction] 48.5 % Critically high 36.0-48.0 [facility] Comment on above: Performed By: #### C BC ####[facility] [address] [place] [address]Dr. Candemaragrita Sarah Hemoglobin (Bld) [Mass/Vol] 15.6 g/dL Normal 12.0-16.0 [facility] Comment on above: Performed By: #### C BC ####[facility] [address] [place] [address]Dr. Carmelina Sarah IG # 0.05 10e3/ul Critically high 0.00-0.03 [facility] Comment on above: Performed By: #### C BC ####[facility] [address] [place] [address]Dr. Carmelina Sarah IG % 0.5 % Normal 0.0-0.5 [facility] Comment on above: Performed By: #### C BC ####[facility] [address] [place] [address]Dr. Carmelina Sarah LYMPH # 3.2 103/ul Normal 1.2-3.8 [facility] Comment on above: Performed By: #### C BC ####[facility] [address] [place] [address]Dr. Carmelina Sarah Lymphocytes/100 WBC (Bld) 33.4 % Normal 20.5-60.0 [facility] Comment on above: Performed By: #### C BC ####[facility] [address] [place] [address]Dr. Carmelina Sarah MANUAL DIFF REQ NO Normal [facility] Comment on above: Performed By: #### C BC ####[facility] [address] [place] [address]Dr. Carmelina Sarah MCH (RBC) [Entitic mass] 28.3 pg Normal 26.7-34.0 [facility] Comment on above: Performed By: #### C BC ####[facility] [address] [place] [address]Dr. Carmelina Sarah MCHC (RBC) [Mass/Vol] 32.2 g/dL Normal 29.9-35.2 [facility] Comment on above: Performed By: #### C BC ####[facility] [address] [place] [address]Dr. Carmelina Tyrel MCV (RBC) [Entitic vol] 88.0 fL Normal 81.0-99.0 [facility] Comment on above: Performed By: #### C BC ####[facility] [address] [place], [place] [address]Dr. Cramelina Tyrel MONO # 0.7 103/ul Normal 0.3-0.8 [facility] Comment on above: Performed By: #### C BC ####[facility] [address] [place], [place] [address]Dr. Candemargarita Sarah Monocytes/100 WBC (Bld) 7.7 % Normal 1.7-12.0 [facility] Comment on above: Performed By: #### C BC ####[facility] [address] [place], [place] [address]Dr. Carmelina Sarah NEUT # 5.0 103/ul Normal 1.4-6.5 [facility] Comment on above: Performed By: #### C BC ####[facility] [address] [place], [place] [address]Dr. Candemargarita Sarah Neutrophils/100 WBC (Bld) 52.3 % Normal 43.0-75.0 [facility] Comment on above: Performed By: #### C BC ####[facility] [address] [place], [place] [address]Dr. Carmelina Tyrel Platelet mean volume (Bld) [Entitic vol] 10.8 fL Normal 9.5-13.5 [facility] Comment on above: Performed By: #### C BC ####[facility] [address] [place], [place] [address]Ss. Carmelina Sarah PLT 765 103/ul Critically high 150-450 [facility] Comment on above: Performed By: #### C BC ####[facility] [address] [place], [place] [address]Uf. Carmelina Sarah RBC 5.51 106/ul Critically high 4.20-5.40 [facility] Comment on above: Performed By: #### C BC ####[facility] [address] [place], [place] [address]Ti. Carmelina Sarah WBC 9.6 103/ul Normal 4.0-11.0 [facility] Comment on above: Performed By: #### C BC ####[facility] [address] [place], [place] [address]Nl. Carmelina Sarah FREE T3on 02-22-2022 FREE T3 3.14 pg/mlL Normal 2.18-3.98 [facility] Comment on above: Performed By: #### F T3, TSH, T4, LIPID, CMP #### [facility] [address] [place] [address] [address] Carmelina Sarah GLYCOHEMOGLOBIN A1Con 2021 ADA RECOMMENDATION SEE BELOW Normal [facility] Comment on above: Result Comment: ADA RECOMMENDED LIMIT 4.0 - 6.0 ADA THERAPEUTIC TARGET < 7.0 ACTION SUGGESTED > 7.0 Performed By: #### A 1C #### [facility] [address] [place] [address] [address] Carmelina Sarah Glucose [Mass/Vol] 108 mg/dL Normal [facility] Comment on above: Performed By: #### A 1C #### [facility] [address] [place] [address] [address] Carmelina Sarah HbA1c (Bld) [Mass fraction] 5.4 % Normal 4.5-6.2 [facility] Comment on above: Performed By: #### A 1C #### [facility] [address] [place] [address] [address] Carmelina Sarah LIPID PROFILEon 02-22-2022 CHOL-HDL RATIO NORM SEE BELOW Normal [facility] Comment on above: Result Comment: 3.3 - 4.4 LOW RISK 4.4 - 7.1 AVERAGE RISK 7.1 - 11.0 MODERATE RISK >11.0 HIGH RISK Performed By: #### F T3, TSH, T4, LIPID, CMP #### [facility] [address] [place] [address] [address] Carmelina Sarah Cholesterol [Mass/Vol] 158 mg/dL Normal <=200 [facility] Comment on above: Performed By: #### F T3, TSH, T4, LIPID, CMP #### [facility] [address] [place] [address] [address] Carmelina Sarah Cholesterol in HDL [Mass/Vol] 62 mg/dL Critically high 40-60 [facility] Comment on above: Performed By: #### F T3, TSH, T4, LIPID, CMP #### [facility] [address] [place] [address] [address] Carmelina Sarah Cholesterol in LDL [Mass/Vol] 81.2 mg/dL Normal [facility] Comment on above: Performed By: #### F T3, TSH, T4, LIPID, CMP #### [facility] [address] [place] [address] [address] Carmelina Sarah Cholesterol.total/ Cholesterol in HDL [Mass ratio] 2.5 {ratio} Normal [facility] Comment on above: Performed By: #### F T3, TSH, T4, LIPID, CMP #### [facility] [address] [place] [address] [address] Carmelina Sarah HDL NORMAL > or = 60 mg/dl - LO W CARDIOVASCULAR RISK <40 mg/dl - HIGH CARDIOVASCULAR RISK Normal [facility] Comment on above: Performed By: #### F T3, TSH, T4, LIPID, CMP #### [facility] [address] [place] [address] [address] Carmelina Sarah LDL CALC NORMAL SEE BELOW Normal [facility] Comment on above: Result Comment: <100 mg/dl OPTIMAL 100 - 129 mg/dl NEAR OR ABOVE OPTIMAL 130 - 159 mg/dl BORDERLINE HIGH 160 - 189 mg/dl HIGH >190 mg/dl VERY HIGH Performed By: #### F T3, TSH, T4, LIPID, CMP #### [facility] [address] [address] [address] Carmelina Sarah Triglyceride [Mass/Vol] 74 mg/dL Normal <=150 [facility] Comment on above: Performed By: #### F T3, TSH, T4, LIPID, CMP #### [facility] [address] [address] [address] Carmelina Sarah VLDL CALC 14.8 mg/dL Normal [facility] Comment on above: Performed By: #### F T3, TSH, T4, LIPID, CMP #### [facility] [address] [place] [address] Dr. Carmelina Sarah PROF 14(COMP METB)on 022 Albumin [Mass/Vol] 3.8 g/dL Normal 3.4-5.0 [facility] Comment on above: Performed By: #### F T3, TSH, T4, LIPID, CMP #### [facility] [address] [place] [address] Dr. Carmelina Sarah Albumin/Globulin [Mass ratio] 1.0 {ratio} Normal [facility] Comment on above: Performed By: #### F T3, TSH, T4, LIPID, CMP #### [facility] [address] [place] [address] Dr. Carmelina Sarah ALP [Catalytic activity/Vol] 102 U/L Normal 46-116 [facility] Comment on above: Performed By: #### F T3, TSH, T4, LIPID, CMP #### [facility] [address] [place] [address] Dr. Carmelina Sarah ALT [Catalytic activity/Vol] 22 U/L Normal 14-59 [facility] Comment on above: Performed By: #### F T3, TSH, T4, LIPID, CMP #### [facility] [address] [place] [address] Dr. Carmelina Sarah Anion gap [Moles/Vol] 11.1 mmol/L Normal [facility] Comment on above: Performed By: #### F T3, TSH, T4, LIPID, CMP #### [facility] [address] [place] [address] Dr. Carmelina Sarah AST [Catalytic activity/Vol] 21 U/L Normal 15-37 [facility] Comment on above: Performed By: #### F T3, TSH, T4, LIPID, CMP #### [facility] [address] [address] [address] Carmelina Sarah Bilirubin [Mass/Vol] 0.5 mg/dL Normal 0.2-1.0 [facility] Comment on above: Performed By: #### F T3, TSH, T4, LIPID, CMP #### [facility] [address] [address] [address] Carmelina Sarah Calcium [Mass/Vol] 9.2 mg/dL Normal 8.5-10.1 [facility] Comment on above: Performed By: #### F T3, TSH, T4, LIPID, CMP #### [facility] [address] [place] [address] Dr. Carmelina Sarah Chloride [Moles/Vol] 104 mmol/L Normal 98-107 [facility] Comment on above: Performed By: #### F T3, TSH, T4, LIPID, CMP #### [facility] [address] [place] [address] Dr. Carmelina Sarah CO2 [Moles/Vol] 27.6 mmol/L Normal 21.0-32.0 [facility] Comment on above: Performed By: #### F T3, TSH, T4, LIPID, CMP #### [facility] [address] [place] [address] Dr. Carmelina Sarah Creatinine [Mass/Vol] 0.93 mg/dL Normal 0.55-1.02 [facility] Comment on above: Performed By: #### F T3, TSH, T4, LIPID, CMP #### [facility] [address] [address] [address] Carmelina Sarah EGFR-AF IRAQI >60 Normal >=60 [facility] Comment on above: Performed By: #### F T3, TSH, T4, LIPID, CMP #### [facility] [address] [place] [address] Dr. Carmelina Sarah EGFR-NON AF IRAQI >60 Normal >=60 [facility] Comment on above: Performed By: #### F T3, TSH, T4, LIPID, CMP #### [facility] [address] [address] [address] Carmelina Sarah Globulin (S) [Mass/Vol] 3.7 g/dL Normal [facility] Comment on above: Performed By: #### F T3, TSH, T4, LIPID, CMP #### [facility] [address] [place] [address] Dr. Carmelina Sarah Glucose [Mass/Vol] 90 mg/dL Normal 74-106 [facility] Comment on above: Performed By: #### F T3, TSH, T4, LIPID, CMP #### [facility] [address] [place] [address] Dr. Carmelina Sarah Potassium [Moles/Vol] 3.7 mmol/L Normal 3.5-5.1 [facility] Comment on above: Performed By: #### F T3, TSH, T4, LIPID, CMP #### [facility] [address] [place] [address] Dr. Carmelina Sarah Protein [Mass/Vol] 7.5 g/dL Normal 6.4-8.2 [facility] Comment on above: Performed By: #### F T3, TSH, T4, LIPID, CMP #### [facility] [address] [place] [address] Dr. Carmelina Sarah Sodium [Moles/Vol] 139 mmol/L Normal 136-145 [facility] Comment on above: Performed By: #### F T3, TSH, T4, LIPID, CMP #### [facility] [address] [place] [address] Dr. Carmelina Sarah Urea nitrogen [Mass/Vol] 19.0 mg/dL Critically high 7.0-18.0 [facility] Comment on above: Performed By: #### F T3, TSH, T4, LIPID, CMP #### [facility] [address] [place] [address] Dr. Carmelina Sarah Urea nitrogen/Creatinin e [Mass ratio] 20.4 mg/mg Normal [facility] Comment on above: Performed By: #### F T3, TSH, T4, LIPID, CMP #### [facility] [address] [place] [address] Dr. Carmelina Sarah T4on 02-22-2022 T4 [Mass/Vol] 8.10 ug/dL Normal 4.80-13.90 [facility] Comment on above: Performed By: #### F T3, TSH, T4, LIPID, CMP #### [facility] [address] [place] [address] Dr. Carmelina Sarah TSHon 02-22-2022 TSH 0.985 uIU/mL Normal 0.358-3.74 0 [facility] Comment on above: Performed By: #### F T3, TSH, T4, LIPID, CMP #### [facility] [address] [place] [address] Dr. Carmelina Sarah VITAMIN D 25 OHon 02-22-2022 VIT D 25-OH 51.9 ng/mL Normal [facility] Comment on above: Performed By: #### V ITAD #### [facility] [address] [place] [address] Dr. Carmelina Sarah VIT D RANGES SEE BELOW Normal [facility] Comment on above: Result Comment: <20 ng/mL Vit D deficient 20 - <30 ng/mL Vit D insufficient 30 - 100 ng/mL Vit D sufficient >100 ng/mL Potential Toxicity Performed By: #### V ITAD #### [facility] [address] [place] [address] Dr. Carmelina Sarah COVID Quick Testingon 2020 Result Negative [employer] [facility] SARS-CoV-2 (COVID-19) RNA TRISO+probe Ql (Unsp spec) Negative Normal Negative [facility] Comment on above: Order Comment: Healt hcare Worker?: N Result Comment: Refe rence: Negative Testing for SARS-CoV-2 by RT-PCR This test was developed and its performance characteristics determined by [employer]) and validated at the [facility]. This test has not been FDA [...] is terminated or revoked sooner. PERFORMED BY: [place] [address] PATHOLOGIST CRITICAL CARE NURSE TOSHIA GILLIS M.D. Performed By: #### C OVID-19 [facility] #### [facility] [address] [place] [address] COVID-19 Positive/Negativeon 06-09-2020 COVID-19 Positive/Negative Negative Negative [facility] Comment on above: Reference: NegativeT esting for SARS-CoV-2 by RT-PCRThis test was developed and its performance characteristics determined by [employer] ([employer]) and validated at the [facility]. This test has not been FDA [...] Otheron 06-09-2020 Coronavirus 2019 PCR Interp N/A [facility] Automated basophil %on 06-06 Basophils/100 WBC (Bld) 2.9 % [facility] Automated basophil counton 0 06-06-2020 Basophils (Bld) [#/Vol] 0.3 10*3/uL 0.0-0.2 [facility] Automated blood lymphocyte c ount (number/volume)on 06-06-2020 Lymphocytes (Bld) [#/Vol] 2.4 10*3/uL 1.00-4.8 [facility] Automated blood lymphocyte c ount as percentage of total leukocyteson 06-06-2020 Lymphocytes/100 WBC (Bld) 26.6 % [facility] Automated blood monocyte cou nton 06-06-2020 Monocytes (Bld) [#/Vol] 1.0 10*3/uL 0.0-0.8 [facility] Automated blood platelet cou nt (count/volume)on 06-06-2020 Platelets (Bld) [#/Vol] 527 10*3/uL 150-450 [facility] Automated blood platelet joi n volume measurementon 06-06-2020 Platelet mean volume (Bld) [Entitic vol] 9.6 fL 6.3-10.7 [facility] Automated eosinophil %on Eosinophils/100 WBC (Bld) 4.8 % [facility] Automated eosinophil counton 06-06-2020 Eosinophils (Bld) [#/Vol] 0.4 10*3/uL 0.0-0.45 [facility] Automated erythrocyte distri bution width ratioon 06-06-2020 Erythrocyte distribution width (RBC) [Ratio] 15.8 % 11.9-15.3 [facility] Automated erythrocyte mean c orpuscular hemoglobin (mass per erythrocyte)on 06-06-2020 MCH (RBC) [Entitic mass] 28.7 pg 24.7-34.3 [facility] Automated erythrocyte mean c orpuscular hemoglobin concentration measurement (mass/volon 06-06-2020 MCHC (RBC) [Mass/Vol] 33.4 g/dL 32.0-35.0 [facility] Automated erythrocyte mean c orpuscular volumeon 06-06-2020 MCV (RBC) [Entitic vol] 85.9 fL 80-100 [facility] Automated monocyte %on 06-06 Monocytes/100 WBC (Bld) 10.9 % [facility] Automated neutrophil %on Neutrophils/100 WBC (Bld) 54.8 % [facility] Blood erythrocytes automated count (number/volume)on 06-06-2020 RBC (Bld) [#/Vol] 5.10 10*6/uL 3.60-5.00 [facility] Blood hemoglobin measurement (mass/volume)on 06-06-2020 Hemoglobin (Bld) [Mass/Vol] 14.7 g/dL 11.8-15.4 [facility] Blood leukocytes automated c ount (number/volume)on 06-06-2020 WBC (Bld) [#/Vol] 9.0 10*3/uL 4.5-11.0 [facility] Blood neutrophil count by au tomated method (number/volume)on 06-06-2020 Neutrophils (Bld) [#/Vol] 4.9 10*3/uL 1.8-7.7 [facility] Body fluid albumin measureme nt (mass/volume)on 06-06-2020 Albumin (Body fld) [Mass/Vol] 4.0 g/dL 3.2-5.5 [facility] Complete Blood Count Auto Di ffon 06-06-2020 Basophils (Bld) [#/Vol] 0.3 10*3/uL High 0.0-0.2 [facility] Comment on above: Result Comment: PERF ORMED BY: [facility] [address] [facility] [place] [address] PATHOLOGIST CRITICAL CARE NURSE TSOHIA GILLIS M.D. Performed By: #### C MP, CBC #### [facility] [address] [place] [address] [place] Basophils/100 WBC (Bld) 2.9 % Normal . [facility] Comment on above: Performed By: #### C MP, CBC #### [facility] [address] Eosinophils (Bld) [#/Vol] 0.4 10*3/uL Normal 0.0-0.45 [facility] Comment on above: Performed By: #### C MP, CBC #### [place] [address] [place] Eosinophils/100 WBC (Bld) 4.8 % Normal . [facility] Comment on above: Performed By: #### C MP, CBC #### [address] Erythrocyte distribution width (RBC) [Ratio] 15.8 % High 11.9-15.3 [facility] Comment on above: Performed By: #### C MP, CBC #### [address] Hematocrit (Bld) [Volume fraction] 43.8 % Normal 34.0-46.4 [facility] Comment on above: Performed By: #### C MP, CBC #### [address] Hemoglobin (Bld) [Mass/Vol] 14.7 g/dL Normal 11.8-15.4 [facility] Comment on above: Performed By: #### C MP, CBC #### [place] [address] [place] Lymphocytes (Bld) [#/Vol] 2.4 10*3/uL Normal 1.00-4.8 [facility] Comment on above: Performed By: #### C MP, CBC #### [place] [address] [place] Lymphocytes/100 WBC (Bld) 26.6 % Normal . [facility] Comment on above: Performed By: #### C MP, CBC #### [address] MCH (RBC) [Entitic mass] 28.7 pg Normal 24.7-34.3 [facility] Comment on above: Performed By: #### C MP, CBC #### [address] MCV (RBC) [Entitic vol] 85.9 fL Normal 80-100 [facility] Comment on above: Performed By: #### C MP, CBC #### [facility] [address] Mean Corpuscular HGB Conc 33.4 g/dL Normal 32.0-35.0 [facility] Comment on above: Performed By: #### C MP, CBC #### [facility] [address] [place] [address] [place] Monocytes (Bld) [#/Vol] 1.0 10*3/uL High 0.0-0.8 [facility] Comment on above: Performed By: #### C MP, CBC #### [facility] [address] [place] [address] [place] Monocytes/100 WBC (Bld) 10.9 % Normal . [facility] Comment on above: Performed By: #### C MP, CBC #### [facility] [address] [place] [address] [place] Neutrophils (Bld) [#/Vol] 4.9 10*3/uL Normal 1.8-7.7 [facility] Comment on above: Performed By: #### C MP, CBC #### [facility] [address] [place] [address] [place] Neutrophils/100 WBC (Bld) 54.8 % Normal . [facility] Comment on above: Performed By: #### C MP, CBC #### [facility] [address] [id number] [place] Nucleated RBC/100 WBC (Bld) [Ratio] 0.0 % Normal 0-0.5 [facility] Comment on above: Performed By: #### C MP, CBC #### [facility] [address] [place] [address] [place] Platelet mean volume (Bld) [Entitic vol] 9.6 fL Normal 6.3-10.7 [facility] Comment on above: Performed By: #### C MP, CBC #### [facility] [address] [id number] [place] Platelets (Bld) [#/Vol] 527 10*3/uL High 150-450 [facility] Comment on above: Performed By: #### C MP, CBC #### [address] RBC (Bld) [#/Vol] 5.10 10*6/uL High 3.60-5.00 [facility] Comment on above: Performed By: #### C MP, CBC #### [address] WBC (Bld) [#/Vol] 9.0 10*3/uL Normal 4.5-11.0 [facility] Comment on above: Performed By: #### C MP, CBC #### [facility] [address] [place] [address] Comprehensive Metabolic Pane chrystal 06-06-2020 Albumin [Mass/Vol] 4.0 g/dL Normal 3.2-5.5 [facility] Comment on above: Performed By: #### C MP, CBC #### [address] Albumin/Globulin [Mass ratio] 1.6 {ratio} Normal [facility] Comment on above: Performed By: #### C MP, CBC #### [address] ALP [Catalytic activity/Vol] 107 U/L High 32-92 [facility] Comment on above: Result Comment: PERF ORMED BY: [place] [address] PATHOLOGIST CRITICAL CARE NURSE TOSHIA GILLIS M.D. Performed By: #### C MP, CBC #### [address] ALT [Catalytic activity/Vol] 22 U/L Normal 10-60 [facility] Comment on above: Performed By: #### C MP, CBC #### [address] AST [Catalytic activity/Vol] 23 U/L Normal 10-42 [facility] Comment on above: Performed By: #### C MP, CBC #### [address] Bilirubin [Mass/Vol] 0.7 mg/dL Normal 0.3-1.2 [facility] Comment on above: Performed By: #### C MP, CBC #### [facility] [address] Calcium [Mass/Vol] 9.7 mg/dL Normal 8.2-10.2 [facility] Comment on above: Performed By: #### C MP, CBC #### [facility] [address] Chloride [Moles/Vol] 101 mmol/L Normal 95-114 [facility] Comment on above: Performed By: #### C MP, CBC #### [address] CO2 [Moles/Vol] 25.1 mmol/L Normal 22.0-30.[address] [facility] Comment on above: Performed By: #### C MP, CBC #### [address] Creatinine [Mass/Vol] 0.97 mg/dL Normal 0.44-1.03 [facility] Comment on above: Performed By: #### C MP, CBC #### [address] Estimated GFR ( Almita > [address] [facility] Comment on above: Result Comment: GFR estimated reference range: According to KDOQI guidelines, <60 ml/min/1.73m2 is sufficient to diagnose a patient with chronic kidney disease. Performed By: #### C MP, CBC #### [place] [address] [place] Estimated GFR (Non- Am [address] [facility] Comment on above: Performed By: #### C MP, CBC #### [place] [address] [place] Globulin (S) [Mass/Vol] 2.5 g/dL Normal [facility] Comment on above: Performed By: #### C MP, CBC #### [place] [address] [place] Glucose [Mass/Vol] 80 mg/dL Normal 70-100 [facility] Comment on above: Result Comment: [place] Glucose Reference Range is dependent on time and content of last meal. Glucose of more than 200 mg/dL in a nonstressed, ambulatory subject supports the diagnosis of Diabetes Mellitus. ADA recommended reference range Performed By: #### C MP, CBC #### [facility] [address] [phone] [place] Potassium [Moles/Vol] 5.1 mmol/L Normal 3.5-5.1 [facility] Comment on above: Performed By: #### C MP, CBC #### [facility] [address] [place] [address] [place] Protein [Mass/Vol] 6.5 g/dL Normal 6.1-7.9 [facility] Comment on above: Performed By: #### C MP, CBC #### [facility] [address] [phone] [place] Sodium [Moles/Vol] 136 mmol/L Normal 136-146 [facility] Comment on above: Performed By: #### C MP, CBC #### [facility] [address] [place] [address] [place] Urea nitrogen [Mass/Vol] 15 mg/dL Normal 9-23 [facility] Comment on above: Performed By: #### C MP, CBC #### [facility] [address] [id number] [place] ECG 12 lead ECGon 06-06-2020 ECG 12 lead ECG [facility] [place] [address] [place] [address] Electrocardiograph Report Signed Patient: Angelique Melo MR#: [id number] 631 : 1965 Acct:[id number] Age/Sex: 54 / F ADM Date: 06/06/20 Loc: PS Room: Type: [facility] Attending Dr: Sesar Gutiérrez MD Ordering [...] DO 06/06/20914 Signed By: 06/06/[address] [facility] Estimated glomerular filtrat ion rate (GFR) non- Americanon 06-06-2020 GFR/1.73 sq M predicted among non-blacks MDRD (S/P/Bld) [Vol rate/Area] 59 mL/min/{1.73_m2} [facility] Hematocrit [Volume Fraction] of Blood by Automated counton 06-06-2020 Hematocrit (Bld) [Volume fraction] 43.8 % 34.0-46.4 [facility] Otheron 06-06-2020 GFR/1.73 sq M.predicted MDRD (S/P/Bld) [Vol rate/Area] mL/min/{1.73_m2} [facility] Comment on above: GFR estimated refere nce range: According to KDOQI guidelines, <60 ml/min/1.73m2 is sufficient to diagnose a patient with chronic kidney disease. Nucleated RBC/100 WBC (Bld) [Ratio] 0.0 % 0-0.5 [facility] Creatinine Clearance (Chem N/A [facility] Protein [Mass/volume] in Ser um or Plasmaon 06-06-2020 Protein [Mass/Vol] 6.5 g/dL 6.1-7.9 [facility] Serum globulin measurement b y calculation (mass/volume)on 06-06-2020 Globulin (S) [Mass/Vol] 2.5 g/dL [facility] Serum or plasma alanine berry otransferase measurement without P-5'-P (enzymatic activion 06-06-2020 ALT No additional P-5'-P [Catalytic activity/Vol] 22 U/L 10-60 [facility] Serum or plasma albumin/glob ulin mass ratioon 06-06-2020 Albumin/Globulin [Mass ratio] 1.6 {ratio} [facility] Serum or plasma alkaline anju sphatase measurement (enzymatic activity/volume)on 06-06-2020 ALP [Catalytic activity/Vol] 107 U/L 32-92 [facility] Serum or plasma aspartate am inotransferase measurement (enzymatic activity/volume)on 06-06-2020 AST [Catalytic activity/Vol] 23 U/L 10-42 [facility] Serum or plasma calcium sammi urement (mass/volume)on 06-06-2020 Calcium [Mass/Vol] 9.7 mg/dL 8.2-10.2 [facility] Serum or plasma chloride joi surement (moles/volume)on 06-06-2020 Chloride [Moles/Vol] 101 mmol/L 95-114 [facility] Serum or plasma creatinine m easurement with calculation of estimated glomerular filtron 06-06-2020 Creatinine [Mass/Vol] 0.97 mg/dL 0.44-1.03 [facility] Serum or plasma glucose sammi urement (mass/volume)on 06-06-2020 Glucose [Mass/Vol] 80 mg/dL 70-100 [facility] Comment on above: ADA recommended refe rence rangeRandom Glucose Reference Range is dependent on time and content of last meal. Glucose of more than 200 mg/dL in a nonstressed, ambulatory subject supports the diagnosis of Diabetes Mellitus. Serum or plasma potassium me asurement (moles/volume)on 06-06-2020 Potassium [Moles/Vol] 5.1 mmol/L 3.5-5.1 [facility] Serum or plasma sodium measu rement (moles/volume)on 06-06-2020 Sodium [Moles/Vol] 136 mmol/L 136-146 [facility] Serum or plasma total biliru bin measurement (mass/volume)on 06-06-2020 Bilirubin [Mass/Vol] 0.7 mg/dL 0.3-1.2 [facility] Serum or plasma total carbon dioxide measurement (moles/volume)on 06-06-2020 CO2 [Moles/Vol] 25.1 mmol/L 22.0-30.0 [facility] Serum or plasma urea nitroge n measurement (mass/volume)on 06-06-2020 Urea nitrogen [Mass/Vol] 15 mg/dL 12-18 [facility] MRI KNEE RIGHT WO CONTRASTon 05-09-2020 [...] by: Rogerio Mathis 05/09/20 Final result Normal [facility] tear of the posterior horn of the medial meniscus. Horizontal tear of the posterior horn and body of the lateral meniscus. [facility] [employer] Work Phone: EXAMINATION: MRI OF THE RIGHT [...] fracture, dislocation or avascular necrosis is seen. [employer] Phone: [place], [employer] Incoming R adiant Results From [employer] - 05/09/2020 9:03 PM EST EXAMINATION: MRI [...] horn and body of the lateral meniscus. [employer] Phone: Coding Summary.on 03-29-2018 Coding Summary. CODING DATE: 019 [facility] STATUS: Home (Routine DC) PAYOR: [facility] [place] APC DESCRIPTION 5312 Level 2 Lower GI Procedures ADMIT DX: REASON FOR VISIT DX: R19.5 Other fecal abnormalities FINAL DX: PRINCIPAL: D12.5 Benign neoplasm of sigmoid colon SECONDARY: E78.00 Pure hypercholesterolemia, unspecified F32.9 Major depressive disorder, single episode, unspecified F17.200 Nicotine dependence, unspecified, uncomplicated PYMT PROC APC STAT DESCRIPTION DOCTOR NAME DATE 90683 5312 T Colonoscopy, flexible; Gala DESOUZA MD 03/20/2018 with removal of tumor(s), polyp(s), or other lesion(s) by snare technique 98190 Anesthesia for lower Ben Deal JR, DO [...] Revised Date Saved: 03/29/2018 03:45 pm Normal [facility] Main OR Intraoperative Recor don 03-22-2018 Main OR Intraoperative Record IntraOp Document Type FT Summary Primary Physician: Gala DESOUZA MD Finalized Date/Time: 03/22/18 14:43:28 Pt. Name: ANGELIQUE MELO./Sex: 1965 Female Med Rec #: [id number] Physician: Gala DESOUZA MD Financial #: [id number] Pt. Type: O Room/Bed: / Admit/Disch: 03/20/18 [...] to review and send charges Sixto Sellers DIESEL TECHNICIAN Case Attendance FT Entry 1 Entry 2 Entry 3 Case Attendee Elma Duffy MD, Gala Bautista RN, Zelda Role Performed Anesthesiologist Surgeon - Primary Gas Pumping Station Operator - Primary Hardware Press Operator Time In 03/20/18 09:05:00 03/20/18 09:05:00 03/20/18 09:05:00 Time Out 03/20/18 09:29:00 03/20/18 09:29:00 03/20/18 09:29:00 Procedure COLONOSCOPY(.) COLONOSCOPY(.) COLONOSCOPY(.) Comments supervising Last Modified By: Michele RN, Zelda Bautista RN, Zelda Bautista RN, Zelda 03/20/18 09:29:46 03/20/18 09:29:46 03/20/18 09:29:46 Entry 4 Entry 5 Case Attendee Samara Blanco [place] [employer] Role Performed Scrub - Other Scrub - [...] Participants Gala DESOUZA MD, Workman RN, Zelda [facility] Time Out Complete 03/20/18 09:07:00 Outcomes Met? [...] Yes polyp x1 Last Modified By: Zelda Batuista RN 03/20/18 09:22:21 Post-Care Text: The patient is free from signs and symptoms of infection Skin Assessment (Pre Procedure) FT Pre-Care Text: Implements protective measures to prevent skin/ tissue injury due to thermal or mechanical sources Evaluates for signs and symptoms of physical injury to skin and tissue Entry 1 Skin Integrity Intact, [place], Warm, and Skin Abnormality No Dry Outcomes [...] injury caused by extraneous objects Transport To [facility] Pre-Care Text: Transports according to individual [...] RN Patient Status Stable Skin. Condition Intact, [place], Warm, and Dry Airway Maintenance Oxygen in Use? No Airway Device N/A Outcomes Met? 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 Yes Verified Last Modified By: Zelda Bautista RN 03/20/18 06:49:20 Post-Care Text: The patient received appropriate medication(s) safely administered during the perioperative period For [facility] please see scanned medication reconcilliation form for [...] 03/20/18 09:30 Lisseth Sellers CST 03/22/18 14:43 [facility] Inpatient Patient Summaryon 03-20-2018 [facility] Inst[facility] INFORMATION Name: ANGELIQUE MELO PHYSICIANS Admitting Physician: Gala DESOUZA MD Physician: Gala DESOUZA MD PCP: Cruzito Thomason MD Diagnosis: Colon polyp Comment: PATIENT EDUCATION INFORMATIONInstructions:Colon oscopy, Care After Surgery Salam (CUSTOM); Colon PolypsMedication Leaflets:Follow up:With: Address: When: [place] [address] Business (1) Within 5 to 7 days Comments: Call for any problems. Call for followup appointment MEDICATION LISTComment: Normal [facility] Main OR PACU I Recordon 02-26 Main OR PACU I Record PACU Phase I Document Type FT Summary Primary Physician: Gala DESOZUA MD Finalized Date/Time: 03/20/18 10:19:08 Pt. Name: ANGELIQUE MELO Bernie/Sex: 1965 Female Med Rec #: [id number] Physician: Gala DESOUZA MD Financial #: [id number] Pt. Type: O Room/Bed: / Admit/Disch: 03/20/18 [...] By: Katerin Joe RN 03/20/18 10:19 Normal [facility] Main OR Preoperative Recordo n 03-20-2018 Main OR Preoperative Record Holding Area Document Type FT Summary Primary Physician: Gala DESOUZA MD Finalized Date/Time: 03/20/18 08:17:50 Pt. Name: LORIE ANGELIQUEALEA Gibbs/Sex: 1965 Female Med Rec #: [id number] Physician: Gala DESOUZA MD Financial #: [id number] Pt. Type: O Room/Bed: / Admit/Disch: 03/20/18 [...] By: Zelda Bautista RN 03/20/18 08:17 Normal [facility] Operative Reporton --201 8 Operative Report Date [...] the procedure well [facility].Gala Desouza M.D.lkrDictated: 03/20/2018 #[id number]: 03/20/2018 #[id number]: Alex Thomason M.D.Gala Desouza M.D. [facility] Comment on above: Result Comment: Elec [...] 06/05/2012 Document Reviewed: 05/23/2012ExitCare? Patient Information ?2014 [employer]. This information is not intended to replace advice given to you by your health care provider. Make sure you discuss any questions you have with your health care provider. Normal [facility] Progress Note-Physicianon Protein mass conc Patient: NADER [...] All ProblemsResolved: Polyp colon / SNOMED CT [id number] Physical Examination Intake and Output Denies significant [...] pain . Respiratory: Adequate air exchange with catholic of preoperative function.. Cardiovascular: Cardiovascular function is stable and has returned to preoperative levels.. Neurologic: Pt has returned to preoperative baseline.. Review / Management Condition: Stable. Assessment Anesthetic outcome No anesthetic complications noted. Plan Transfer/ Discharge: Patient can be discharged from PACU when criteria met. Condition good. Normal [facility] Comment on above: Result Comment: Elec [...] Results review: No qualifying data available. Plan [place] [employer] Anesthesiologists (ASA) physical status classification: Class II. Anesthetic Preoperative Plan Anesthesia: Monitored anesthesia care and general anesthesia if required.. Anesthetic plan, risks, benefits, and alternatives discussed with the patient and/or family. Pt. and/or family present and agree to proceed as planned.. Discussed the importance of abstaining from tobacco products, and offered counseling if desired.. Normal [facility] Comment on above: Result Comment: Elec tronically Signed By: Ben Deal JR, DO.sydni\Date and Time Signed: 03/20/18 08:25 EST Vital Signs Date Time Vital Sign Value Performing Clinician Facility 12-29-2020 10:150400 Body height 177.8 cm Chhaya Spivey Other [facility] Other 12-29-2020 10:15-0400 Body mass index (BMI) [Ratio] 31.56 kg/m2 Chhaya Spivey Other [facility] Other 12-29-2020 10:15-0400 Body temperature 98.2 [degF] Chhaya Spivey Other [facility] Other 12-29-2020 10:15-0400 Body weight 99.79 kg Chhaya Spivey Other [facility] Other 12-29-2020 10:15-0400 SaO2% (BldA) [Mass fraction] 97 % Chhaya Spivey Other [facility] Other Encounters Encounter Date Encounter Type Care Provider Facility Start: 12-12-2023 End: 12-12-2023 ambulatory [facility] Start: 12-09-2023 End: 12-09-2023 ambulatory [facility] Start: 12-02-2023 End: 12-02-2023 ambulatory [facility] Start: 11-22-2023 End: 11-22-2023 ambulatory [facility] Start: 11-14-2023 End: 11-14-2023 ambulatory [facility] Start: 11-02-2023 End: 11-02-2023 ambulatory [facility] Start: 10-25-2023 ambulatory [facility] Start: 10-13-2023 End: 10-13-2023 Evaluation and management of inpatient [facility] Start: 10-10-2023 End: 10-12-2023 Evaluation and management of inpatient [facility] Start: 10-05-2023 End: 10-05-2023 ambulatory [facility] Start: 10-02-2023 End: 10-02-2023 ambulatory [facility] Start: 09-30-2023 End: 09-30-2023 ambulatory [facility] Start: 09-26-2023 End: 09-26-2023 [facility]ulatory [place] [facility] Start: 09-26-2023 Encounter for other preprocedural examination ALEX THOMASON [facility] Start: 09-19-2023 End: 09-19-2023 ambulatory [place] [facility] Start: 08-25-2023 End: 08-25-2023 ambulatory ALEX THOMASON [facility] Start: 07-25-2023 End: 07-25-2023 ambulatory [facility] [facility] Start: 07-25-2023 Encounter for other preprocedural examination [facility] Start: 07-21-2023 End: 07-21-2023 ambulatory ALEX THOMASON [facility] Start: 07-07-2023 End: 07-07-2023 ambulatory [facility] Start: 06-10-2023 End: 06-10-2023 ambulatory [facility]IG[facility] Start: 05-23-2023 Orders Only Valentin Velarde MD Work Phone: [facility] Start: 04-21-2023 End: 04-21-2023 ambulatory ALEX THOMASON [facility] Start: 03-02-2023 Telephone encounter Татьяна Osborn [facility] Comment on above: Post-op Craniotomy Start: 08-02-2022 End: 08-02-[address] ALEX THOMASON . Facility:[facility] Start: 03-26-2022 Encounter for genera l adult medical examination without abnormal findings DR ALEX THOMASON . [facility] Start: 03-24-2022 End: 03-25-[address] ALEX [...] End: 05-11-2020 Patient encounter procedure ALEX THOMASON [facility] Start: 05-08-2020 End: 05-10-2020 Subsequent hospital visit by physician [facility] Mri Rm 119 [facility] MRI Comment on above: Right knee pain, uns pecified chronicity Start: 03-20-2018 End: 03-21-2018 Patient encounter procedure Gala Desouza [place] Procedures Date Procedure Procedure Detail Performing Clinician Start: 07-07-2023 Follow-up visit Follow-up SE[facility] Start: 05-08-2020 Mri any jt lower ext rem w/o contrast matrl Alex Thomason Work Phone: Plan of Treatment Date Care Activity Detail Author Start: 03-10-2024 Tobacco Screening Tobacco Screening [facility] Start: 03-07-2024 Adult BMI Screening Adult BMI Screening [facility] Start: 07-21-2023 End: 07-21-2023 Patient encounter procedure 07/21/2023 9:30 AM EDT Appointment [facility] - Neurophysiology [address] [place] [address] [facility] - Neurophysiology Start: 07-07-2023 End: 07-07-2023 [facility] Start: 06-10-2023 End: 06-10-2023 Patient encounter procedure 06/10/2023 10:00 AM EDT Appointment [facility] [address] [place] [id number] [facility] Start: 04-21-2023 End: 04-21-2023 Patient encounter procedure 04/21/2023 9:30 AM EST Appointment [facility] - Neurophysiology [address] [place] [address] [facility] Start: 11-26-2022 Influenza vaccination [facility]ine [facility] Start: 11-27-2019 Influenza vaccination Flu vaccine (#1) [employer] Phone: Start: 06-27-2013 Screening for malignant neoplasm of breast Breast cancer screen [employer] Phone: Start: 06-27-2013 Screening for malignant neoplasm of colon Colon cancer screen colonoscopy [employer] Phone: Start: 06-27-2013 Shingles Vaccine (1 of 2) Shingles Vaccine (1 of 2) [employer] Phone: Start: 2003 Lipid panel Lipid screen [employer] Phone: Start: 06-27-1984 Screening for malignant neoplasm of cervix Cervical cancer screen [employer] Phone: Start: 06-27-1982 Administration of varicella zoster vaccine Zoster (Shingles) Vaccine (1 of 2) [facility] Start: 06-27-1982 DTaP,Tdap and Td Vaccines (1 - Tdap) DTaP,Tdap and Td Vaccines (1 - Tdap) [facility] Start: 06-27-1982 DTaP/Tdap/Td vaccine (1 - Tdap) DTaP/Tdap/Td vaccine (1 - Tdap) [employer] Phone: Start: 06-27-1981 Adult BMI Follow Up Plan Adult BMI Follow Up Plan [facility] Start: 06-27-1978 HIV screening HIV screen [employer] Phone: Start: 1975 Depression Screening Depression Screening [facility] Start: 1965 Hepatitis C screening Hepatitis C screen [employer] Phone: Start: 1965 Tobacco Counseling Tobacco [facility]ing [facility] End: 03-12-2024 Botox Injection For Cervical Dystonia Botox Injection For Cervical Dystonia Neurology Routine Every 3 Months for 4 Occurrences starting 05/23/2023 until 03/12/2024 [facility] Work Phone: Comment on above: Every 3 Months for 4 Occurrences startin g 05/23/2023 until 03/12/2024 Payers Date Payer Category Payer Worker's Compensation WORKER'S C OMPENSATION WORKER'S [id number] ONLY [id number] 2018-Present [id number] [id number] 2018 Unknown 1965 Unknown [id number] 2.16.840.1.283836.3.579.2. 176 1965 Unknown [id number] 2.16.840.1.158803.3.579.2. 593 1965 Unknown [id number] 2.16.840.1.386765.3.579.2. 593 1965 Unknown [id number] 2.16.840.1.819491.3.579.2. 593 1965 Unknown [id number] 2.16.840.1.294815.3.579.2. 727 1965 Unknown [id number] 2.16.840.1.787554.3.579.2. 1286 1965 Unknown [id number] 2.16.840.1.700000.3.579.2. 1286 1965 Unknown [id number] 2.16.840.1.270280.3.579.2. 1286 1965 Unknown [id number] 2.16.840.1.557539.3.579.2. 1286 1965 Unknown [id number] 2.16.840.1.722095.3.579.2. 1286 1965 Unknown [id number] 2.16.840.1.110499.3.579.2. 1286 1965 Unknown [id number] 2.16.840.1.991928.3.579.2. 1285 1965 Unknown [id number] 2.16.840.1.744046.3.579.2. 1285 1965 Unknown [id number] 2.16.840.1.383626.3.579.2. 1285 1965 Unknown [id number] 2.16840.1.578092.3.579.2. 1285 1963 Unknown [id number] 2.840.1.413455.3.579.2. 1285 1963 Unknown [id number] 2.840.1.712919.3.579.2. 1285 1963 Unknown [id number] 2.840.1.027490.3.579.2. 1285 1963 Unknown [id number] 2.840.1.461456.3.579.2. 1285 1963 Unknown [id number] 2.840.1.624341.3.579.2. 1285 1963 Unknown [id number] 2.840.1.431274.3.579.2. 1285 1963 Unknown [id number] 2.840.1.931511.3.579.2. 1285 1963 Unknown [id number] 2.840.1.439250.3.579.2. 1285 1963 Unknown [id number] 2.840.1.477362.3.579.2. 1285 1963 Unknown [id number] 2.840.1.498965.3.579.2. 1285 1965 Unknown [id number] 2.840.1.919411.3.579.2. 1285 1965 Unknown [id number] 2.840.1.065518.3.579.2. 1285 1959 Unknown [id number] Self-pay Self Pay [id number] Social History Date Type Detail Facility Tobacco smoking stat us DEIS Unknown if ever smoked [employer] Phone: Start: 1965 Sex Assigned At Not on file M [employer] Work Phone: Exposure to SARS-CoV -2 (event) Not sure [employer] Work Phone: Start: 06-06-2020 End: 06-06-2020 Tobacco smoking status NHIS Smoker (finding) [facility] Start: 1965 Sex Assigned At Female F [facility] Start: 05-08-2020 End: 03-10-2023 [facility] Start: 02-24-2023 [facility] tobacco daily [facility] History of tobacco use Cigarette Smoker P [facility] Start: 02-24-2023 Tobacco use and exposure User of smokeless tobacco [facility] Start: 02-24-2023 End: 03-10-2023 Alcohol intake Current drinker of alcohol (finding) [facility] Start: 05-08-2020 End: 03-10-2023 History of Social function [facility] Are you worried or concerned that in the next two months you may not have stable housing that you own, rent or stay in as a part of a household? No [facility] Start: 01-12-2019 Alcohol Comment once in a great whil e [facility] Medical Equipment Procedure Code Equipment Code Equipment Origin al Text Equipment Identifier Dates Gft Bn Ricardo Cnc 15cc Frzdr - [id number] - [id number] Start: 01-12-2019 Patch Dura 16x10 cm Drgrd Bvn Pricrd Strl Lf - [id number] Start: 12-26-2022 Plt Bn 41mm +20d Oblq L 3 - Sna - [id number] Start: 01-12-2019 Scr Bn Ricardo 2.4m m 16mm Strdrv - Sna - [id number] Start: 01-12-2019 Goals Date Patient Goal [...] call today 03/02/23 8:46 from Abi at [facility] who stated that patient had craniotomy a couple months ago and she's noticed in the last few days that it is more swollen. She wanted to know if this was measured after she had the procedure and is requesting call back for medical advice. Please call back and advise, direct callback#: [phone]. Will need to call neurosurgery. Called Abi [...] CT scan that is scheduled on 06/10/2023. Perfect B[employer] Feeder Offbearer did inform her that neurosurgery was not [...] appt to the same day. Please advise. Perfect B[employer] Feeder Offbearer received a call from Daysi with [facility]. Daysi is asking if appointment that is scheduled for 05/05/2023 at 9:30 could please be scheduled on the same day with Neurosurgery appointment. Appointment with Neurosurgery is 06/14/2023 at 2:30pm. Daysi is requesting appointment to either before 2:30pm or after, as long as it is on the same day. Please Advise. Daysi is requesting a call back [phone] to further discuss. Thank you so much Called facility back and it rang until it changed to busy tone Called transportation back and no answer This patient follows care under the fellows and they are only here on afternoons. Called [facility] Lashaun answered they're trying to make the appts on the same day so that its easier on the patient. She is going to talk to Dr Hutchinson office and see if they have something they may correlate on a Received call today 04/07/23 1:43 from [facility] who is requesting a call back in regard to previous message. She said that she got some dates/times from the other provider's office. Please call back and advise, callback#: [phone]. Spoke with Lashaun and correlated Dr Hutchinson appt on the same day as ours documented in this encounter [facility] 03-02-2023 Telephone encount er Note Received call today 03/02/23 8:46 from Abi at [facility] who stated that patient had craniotomy a couple months ago and she's noticed in the last few days that it is more swollen. She wanted to know if this was measured after she had the procedure and is requesting call back for medical advice. Please call back and advise, direct callback#: [phone]. [facility] 03-02-2023 Telephone encount er Note Will need to call neurosurgery. [facility] 03-02-2023 Telephone encount er Note Called Abi and informed her that if it is about surgery site, she should call neurosurgery and provided the number for it. She voiced understanding. [facility] 03-02-2023 Telephone encount er Note Daysi with Transportation is asking for the appointment (05/05/2023) with stroke to rescheduled on same day with the patients appointment (06/09/2023) with neurosurgery. Also, she is asking for the appointment to be schedule after the CT scan that is scheduled on 06/10/2023. Perfect Binder Feeder Offbearer did inform her that neurosurgery was not in our office, she asked to clinical staff to make arrangements with neurosurgery. Please advise [facility] 03-02-2023 Telephone encount er Note Daysi contacted our office back stating that both appts (neurology and neurosurgery) need to be moved to after the appt for her CT scan which is on 06/10/2023. She was transferred to Neurosurgery to reschedule that appt and once that appt is rescheduled we could possibly reschedule our appt to the same day. Please advise. [facility] 03-02-2023 Telephone encount er Note Perfect Binder Feeder Offbearer received a call from Daysi with [facility]. Daysi is asking if appointment that is scheduled for 05/05/2023 at 9:30 could please be scheduled on the same day with Neurosurgery appointment. Appointment with Neurosurgery is 06/14/2023 at 2:30pm. Daysi is requesting appointment to either before 2:30pm or after, as long as it is on the same day. Please Advise. Daysi is requesting a call back [phone] to further discuss. Thank you so much [facility] 03-02-2023 Telephone encount er Note Called facility back and it rang until it changed to busy tone Called transportation back and no answer This patient follows care under the fellows and they are only here on afternoons. [facility] 03-02-2023 Telephone encount er Note Called facility Lashaun answered they're trying to make the appts on the same day so that its easier on the patient. She is going to talk to Dr Hutchinson office and see if they have something they may correlate on a [facility] 03-02-2023 Telephone encount er Note Received call today 04/07/23 1:43 from Tere at [facility] who is requesting a call back in regard to previous message. She said that she got some dates/times from the other provider's office. Please call back and advise, callback#: [phone]. [facility] 03-02-2023 Telephone encount er Note Spoke with Lashaun and correlated Dr Hutchinson appt on the same day as ours [facility] 12-29-2020 Evaluation note Encounter Date Diagnosis Assessment [...] Patient care instructions given in writting by [facility] Care At Home document. [facility] Other History general Narrative - Reported* Type Description Date Surgical History carpal tunnel release- bilatera l Surgical History hysterectomy Surgical History ORIF left wrist [facility] Other InstructionsNot on filedocumented in this encounter WicronInstructionsNot on filedocumented in this encounter [facility] Summary Purpose Family History No Family History [...] Documents on File Type Date Recorded Patient Negative Turner Expl anation DNR Physician Order 01/18/2023 4:20 PM Latest Code Status on File Code Status Date Activated Date Inactivated Comments DNR Comfort Care Arrest (DNR-CCA) [place] 12/31/2022 11:45 AM 01/11/2023 7:55 PM Code Status History Code Status Date Activated Date Inactivated Comments Full Code 12/26/2022 4:32 AM 12/31/2022 11:45 AM Documents on File Type Date Recorded Patient Negative Turner Expl anation DNR Physician Order 01/18/2023 4:20 PM Latest Code Status on File Code Status Date Activated Date Inactivated Comments DNR Comfort Care Arrest (DNR-CCA) [place] 12/31/2022 11:45 AM 01/11/2023 7:55 PM Code Status History Code Status Date Activated Date Inactivated Comments Full Code 12/26/2022 4:32 AM 12/31/2022 11:45 AM Reason for Referral Status Reason Specialty Diagnoses / Procedures Referre d By Contact Referred To Contact Closed Radiology Diagnoses Right knee pain, unspecified chronicity Procedures MRI KNEE RIGHT WO CONTRAST Alex Thomason MD [facility] [place] [address] Specialty Diagnoses / Procedures Referred By Contac t Referred To Contact Procedures Botox Injection For Cervical Dystonia Valentin Velarde MD [address] [facility] [place] [address] Referral ID Status Reason Start Date Expiration Date V isits Requested Visits Authorized [id number] Pending Review 05/23/2023 05/22/2024 4 4 Assessments Diagnosis Right knee pain, unspecified chronicity Chief Complaint and Reason for Visit Chief Complaint Knee Pain Chief Complaint Knee Pain Knee Pain Additional Source Comments INFORMATION SOURCE (unrecogn ized section and content) DATE CREATED AUTHOR 03/30/2018 [employer] [facility] DATE CREATED AUTHOR AUTHOR'S ORGANIZ ATION 05/12/2020 [facility] DATE CREATED AUTHOR AUTHOR'S ORGANIZ ATION 03/16/2021 [facility] DATE CREATED AUTHOR AUTHOR'S ORGANIZ ATION 08/03/2022 [facility] DATE CREATED AUTHOR AUTHOR'S ORGANIZ ATION 11/05/2023 [facility] DATE CREATED AUTHOR AUTHOR'S ORGANIZ ATION 12/11/2023 [facility] DATE CREATED AUTHOR AUTHOR'S ORGANIZ ATION 12/13/2023 [facility] Reason for Visit (unrecogniz ed section and content) Status Reason Specialty Diagnoses / Procedures Referre d By Contact Referred To Contact Closed Radiology Diagnoses Right knee pain, unspecified chronicity Procedures MRI KNEE RIGHT WO CONTRAST Alex Thomason MD [address] [place] [address] Reason Onset Date Comments Post-op Craniotomy 03/02/2023 Care Teams (unrecognized sec tion and content) 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 [facility] [email or web address] [facility]. provides no warranty or guarantee of the accuracy or completeness of information in this document.
[2024-01-23 17:29] LABS: Bilirubin Urine NEGATIVE (NEGATIVE); Blood Urine NEGATIVE (NEGATIVE); Clarity Urine CLEAR (CLEAR); Color Urine LT. YELLOW (YELLOW); Glucose Urine UA NEGATIVE (NEGATIVE); Ketones Urine NEGATIVE (NEGATIVE); Leukocyte Esterase Urine TRACE (NEGATIVE); Nitrite Urine NEGATIVE (NEGATIVE); Protein Urine NEGATIVE (NEG/TRACE); Urobilinogen Urine 0.2 EU/dL (0.2-1.0)
[2024-01-23 17:43] LABS: Bacteria Urine TRACE #/HPF (NONE SEEN); Crystals Seen? Seen #/HPF (None Seen); Mucus Urine NONE SEEN (NONE SEEN); RBC Urine 0-2 #/HPF (0-2); Squamous Epithelial Cell Urine RARE #/LPF (NONE/RARE)
[2024-01-23 17:44] LABS: Calcium Oxalate Crystals Urine MODERATE; Cast Seen? NONE SEEN #/LPF (NONE SEEN); Urine Culture Indicated ALREADY ORDERED
== END 2024-01-23 17:07 | disposition home or self-care (01) ==
LOC: LAB 17:06
PROVIDERS: PCP Family Medicine; Visit Provider Family Medicine
DX: N39.0 Urinary tract infection, site not specified (principal)
CPT/HCPCS: 81001; 87086

== ENCOUNTER 2024-02-03 08:52 | Day surgery (SDC) | payer OTHER, SELFPAY ==
[2024-02-03 09:00] VITALS: BP 95/60; PULSE 76; O2SAT 95
--- NOTE | 2024-02-03 09:02 | US_ITS ---
[address] [address] Patient Name: ROXANNA MELO MRN: [id number] date: 1965 Sex: F Assigned Patient Location: US Current Patient Location: Accession/Order Number: [id number] Exam Date: 02/03/2024 09:30 Report Date: 02/03/2024 10:33 At the request of: WILBER MARSHALL Procedure: US biopsy thyroid EXAMINATION: US biopsy thyroid HISTORY: Thyroid Nodule COMPARISON: Ultrasound thyroid 01/19/2024 TECHNIQUE: After obtaining informed consent, ultrasound-guided fine needle aspiration was performed in the usual sterile manner. FINDINGS: IMAGING: Ultrasound. BIOPSY NEEDLE: 25-gauge; 3 separate passes LOCATION: Left lobe 2.1 cm TR 5 nodule. SPECIMEN TYPE: Cellular tissue. LOCAL ANESTHETIC: Buffered Xylocaine. COMPLICATIONS: None. LABORATORY: Prepared slide smears and washings for cell block evaluation. OTHER: Negative. PATHOLOGY: Pending. An addendum will be added when results are available. US/US biopsy thyroid IMPRESSION: 1. Uneventful ultrasound guided fine needle aspiration (FNA). 2. Pathology results are pending. Electronically authenticated by: MARGARITA LESLIE Date: 02/03/2024 10:33
--- OUTSIDE RECORDS SUMMARY | 2024-02-03 09:09 | XMS_ITS | CCD ---
Author Organization [facility] Care Team Providers Care Steel Tester Name Role Phone Nill, Gala R Unavailable Unavailable Nill, Gala R Unavailable Unavailable Nill, Gala R Unavailable Unavailable Alex Thomason~[phone] UNKNOWN Unavailable Unavailable ALEX THOMASON Referring Unavailable ALEX THOMASON Primary Care Unavailable Alex Thomason Primary Care Provider Alex Thomason Primary Care Provider Sesar Gutiérrez Attending Provider [phone] Chhaya Spivey Unavailable SHREYAS ., DR [...] Unavailable HOY ., DR ONTIVEROS Consulting Unavailable HUDSON, DR FRANCES Del Valle Consulting Unavailable FRANCES [...] HOY, ALEX M Primary Care Unavailable HAJA URRTUIA Attending Unavailable HAJA URRUTIA M Referring Unavailable [...] Medication Allergies] Propensity to adverse reactions (disorder) [facility] Repository Medications Current Medications Medication Drug [...] 9:50am docusate sodium 50 mg / sennosides, chcf 8.6 mg oral tablet (2 sources) take [...] needed. 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] Onset: 02-27-2022 Episodic Other [...] Cheung MD on 12/06/2023 9:45 AM Normal [facility] CT CTA CHESTon 12-06-2023 CT CTA [...] Art Gale on 12/06/2023 2:35 PM Normal [facility] BASIC METABOLIC PANLon 10-11 Anion gap [Moles/Vol] 7 mmol/L Normal 5-15 [facility] Comment on above: Performed By: #### C BCA, BMP #### [facility] ([id number]) [address], [address] [place] [address] Calcium [Mass/Vol] 8.9 mg/dL Normal 8.5-10.5 [facility] Comment on above: Performed By: #### C BCA, BMP #### [facility] ([id number]) [address], [address] [place] [address] Chloride [Moles/Vol] 105 mmol/L Normal 98-109 [facility] Comment on above: Performed By: #### C MINH, BMP #### [facility] ([id number]) [address], [address] [place] [address] CO2 [Moles/Vol] 27 mmol/L Normal 22-32 [facility] Comment on above: Performed By: #### C BCA, BMP #### [facility] ([id number]) [address], [address] [place] [address] Creatinine [Mass/Vol] 0.50 mg/dL Normal 0.40-1.00 [facility] Comment on above: Result Comment: METH OD TRACEABLE TO IDMS STANDARD Performed By: #### C MINH, BMP #### [facility] ([id number]) [address], [address] [place] [address] eGFR (CKD-EPI) NON-RACE DEPENDENT >90 Normal >59 [facility] Comment on above: Result Comment: Reported eGFR is based on the CKD-EPI 2020 equation that does not use a race coefficient. Performed By: #### C BCA, BMP #### [facility] ([id number]) [address], [address] [place] [address] Glucose [Mass/Vol] 99 mg/dL Normal 65-99 [facility] Comment on above: Performed By: #### C BCA, BMP #### [facility] ([id number]) [address], [address] [place] [address] Potassium [Moles/Vol] 3.6 mmol/L Normal 3.5-5.0 [facility] Comment on above: Performed By: #### C BCA, BMP #### [facility] ([id number]) [address], [address] [place] [address] Sodium [Moles/Vol] 139 mmol/L Normal 134-146 [facility] Comment on above: Performed By: #### C BCA, BMP #### [facility] ([id number]) [address], [address] [place] [address] Urea nitrogen [Mass/Vol] 15 mg/dL Normal 5-23 [facility] Comment on above: Performed By: #### C BCA, BMP #### [facility] ([id number]) [address], [address] [place] [address] CBC AND AUTO DIFFon 10-12-19 Erythrocyte distribution width (RBC) [Ratio] 14.3 % Normal 11.5-15.0 [facility] Comment on above: Performed By: #### C BCA, BMP #### [facility] ([id number]) [address], [address] [place] [address] Hematocrit (Bld) [Volume fraction] 27.9 % Low 35-47 [facility] Comment on above: Performed By: #### C BCA, BMP #### [facility] ([id number]) [address], [address] [place] [address] Hemoglobin (Bld) [Mass/Vol] 9.5 g/dL Low 11.7-15.5 [facility] Comment on above: Performed By: #### C BCA, BMP #### [facility] ([id number]) [address], [facility] [address] [place] [address] Lymphocytes (Bld) [#/Vol] 2.9 10*3/uL Normal 1.0-3.5 [facility] Comment on above: Performed By: #### C BCA, BMP #### [facility] ([id number]) [address], [address] [place] [address] Lymphocytes/100 WBC (Bld) 42.0 % Normal [facility] Comment on above: Performed By: #### C MINH, BMP #### [facility] ([id number]) [address], [address] [place] [address] MCH (RBC) [Entitic mass] 40.3 pg High 27-34 [facility] Comment on above: Performed By: #### C MINH, BMP #### [facility] ([id number]) [address], [address] [place] [address] MCHC (RBC) [Mass/Vol] 34.1 g/dL Normal 32-36 [facility] Comment on above: Performed By: #### C MINH, BMP #### [facility] ([id number]) [address], [address] [place] [address] MCV (RBC) [Entitic vol] 118 fL High 80-100 [facility] Comment on above: Performed By: #### C MINH, BMP #### [facility] ([id number]) [address], [address] [place] [address] Monocytes (Bld) [#/Vol] 0.3 10*3/uL Normal 0-0.9 [facility] Comment on above: Performed By: #### C MINH, BMP #### [facility] ([id number]) [address], [address] [place] [address] Monocytes/100 WBC (Bld) 4.0 % Normal [facility] Comment on above: Performed By: #### C BCA, BMP #### [facility] ([id number]) [address], [address] [place] [address] Neutrophils (Bld) [#/Vol] 3.8 10*3/uL Normal 1.5-6.6 [facility] Comment on above: Performed By: #### C MINH, BMP #### [facility] ([id number]) [address], [address] [place] [address] OVALOCYTE 1+ Abnormal NONE [facility] Comment on above: Performed By: #### C MINH, BMP #### [facility] ([id number]) [address] [place] [address] Platelet mean volume (Bld) [Entitic vol] 8.4 fL Normal 7-12 [facility] Comment on above: Performed By: #### C MINH, BMP #### [facility] ([id number]) [address] [place] [address] Platelets (Bld) [#/Vol] 200 10*3/uL Normal 150-450 [facility] Comment on above: Performed By: #### C MINH, BMP #### [facility] ([id number]) [address], [address] [place] [address] POLYCHROMASIA 1+ Abnormal NONE [facility] Comment on above: Performed By: #### C MINH, BMP #### [facility] ([id number]) [address], [address] [place] [address] RBC COUNT 2.36 X10E12/L Low 3.80-5.20 [facility] Comment on above: Performed By: #### C MINH, BMP #### [facility] ([id number]) [address], [address] [place] [address] SEG NEUTROPHIL 54.0 % Normal [facility] Comment on above: Performed By: #### C MINH, BMP #### [facility] ([id number]) [address] [place] [address] WBC (Bld) [#/Vol] 7.0 10*3/uL Normal 4.0-11.0 [facility] Comment on above: Performed By: #### C MINH, BMP #### [facility] ([id number]) [address], [address] [place] [address] BASIC METABOLIC PANLon 10-10 Anion gap [Moles/Vol] 9 mmol/L Normal 5-15 [facility] Comment on above: Performed By: #### C BC, BMP #### [facility] ([id number]) [address], [address] [place] [address] Calcium [Mass/Vol] 9.0 mg/dL Normal 8.5-10.5 [facility] Comment on above: Performed By: #### C BC, BMP #### [facility] ([id number]) [address], [address] [place] [address] Chloride [Moles/Vol] 105 mmol/L Normal 98-109 [facility] Comment on above: Performed By: #### C BC, BMP #### [facility] ([id number]) [address], [address] [place] [address] CO2 [Moles/Vol] 25 mmol/L Normal 22-32 [facility] Comment on above: Performed By: #### C BC, BMP #### [facility] ([id number]) [address], [address] [place] [address] Creatinine [Mass/Vol] 0.45 mg/dL Normal 0.40-1.00 [facility] Comment on above: Result Comment: METH OD TRACEABLE TO IDMS STANDARD Performed By: #### C BC, BMP #### [facility] ([id number]) [address] [address] [place] [address] eGFR (CKD-EPI) NON-RACE DEPENDENT >90 Normal >59 [facility] Comment on above: Result Comment: Reported eGFR is based on the CKD-EPI 2020 equation that does not use a race coefficient. Performed By: #### C BC, BMP #### [facility] ([id number]) [address] [place] [address] Glucose [Mass/Vol] 127 mg/dL High 65-99 [facility] Comment on above: Performed By: #### C FLAKITO, BMP #### [facility] ([id number]) [address], [address] [place] [address] Potassium [Moles/Vol] 3.6 mmol/L Normal 3.5-5.0 [facility] Comment on above: Performed By: #### C FLAKITO, BMP #### [facility] ([id number]) [address], [address] [place] [address] Sodium [Moles/Vol] 139 mmol/L Normal 134-146 [facility] Comment on above: Performed By: #### Amanda FRAGA, BMP #### [facility] ([id number]) [address] [place] [address] Urea nitrogen [Mass/Vol] 15 mg/dL Normal 5-23 [facility] Comment on above: Performed By: #### Amanda FRAGA, BMP #### [facility] ([id number]) [address] [place] [address] COMPLETE BLOOD COUNTon 10-10 Erythrocyte distribution width (RBC) [Ratio] 14.1 % Normal 11.5-15.0 [facility] Comment on above: Performed By: #### Amanda FRAGA, BMP #### [facility] ([id number]) [address] [place] [address] Hematocrit (Bld) [Volume fraction] 30.6 % Low 35-47 [facility] Comment on above: Performed By: #### C FLAKITO, BMP #### [facility] ([id number]) [address] [place] [address] Hemoglobin (Bld) [Mass/Vol] 10.6 g/dL Low 11.7-15.5 [facility] Comment on above: Performed By: #### C FLAKITO, BMP #### [facility] ([id number]) [address], [address] [place] [address] MCH (RBC) [Entitic mass] 40.5 pg High 27-34 [facility] Comment on above: Performed By: #### Amanda FRAGA, BMP #### [facility] ([id number]) [address], [address] [place] [address] MCHC (RBC) [Mass/Vol] 34.6 g/dL Normal 32-36 [facility] Comment on above: Performed By: #### C FLAKITO, BMP #### [facility] ([id number]) [address], [address] [place] [address] MCV (RBC) [Entitic vol] 117 fL High 80-100 [facility] Comment on above: Performed By: #### Amanda FRAGA, BMP #### [facility] ([id number]) [address], [address] [place] [address] Platelet mean volume (Bld) [Entitic vol] 8.1 fL Normal 7-12 [facility] Comment on above: Performed By: #### Amanda FRAAG, BMP #### [facility] ([id number]) [address], [address] [place] [address] Platelets (Bld) [#/Vol] 220 10*3/uL Normal 150-450 [facility] Comment on above: Performed By: #### Amanda FRAGA, BMP #### [facility] ([id number]) [address] [place] [address] RBC COUNT 2.62 X10E12/L Low 3.80-5.20 [facility] Comment on above: Performed By: #### Amanda FRAGA, BMP #### [facility] ([id number]) [address] [place] [address] WBC (Bld) [#/Vol] 5.3 10*3/uL Normal 4.0-11.0 [facility] Comment on above: Performed By: #### C BC, BMP #### [facility] ([id number]) [address] [facility], [address] [place] [address] CT BRAIN WO CONTon CT BRAIN WO [...] Jeffers MD on 10/11/2023 2:29 AM Normal [facility] Glucose Glucometer (BldC) [M ass/Vol]on 10-10-2023 Glucose [Mass/Vol] 133 mg/dL High 65-99 [facility] BASIC METABOLIC PANLon 10-04 Anion gap [Moles/Vol] 8 mmol/L Normal 5-15 [facility] Comment on above: Performed By: #### U A #### [facility] ([id number]) [address] [place] [address], [place] [address] Calcium [Mass/Vol] 9.8 mg/dL Normal 8.5-10.5 [facility] Comment on above: Performed By: #### U A #### [facility] ([id number]) [address] [place] [address] Chloride [Moles/Vol] 104 mmol/L Normal 98-109 [facility] Comment on above: Performed By: #### U A #### [facility] ([id number]) [address] [place] [address] CO2 [Moles/Vol] 28 mmol/L Normal 22-32 [facility] Comment on above: Performed By: #### U A #### [facility] ([id number]) [address] [place] [address] Creatinine [Mass/Vol] 0.63 mg/dL Normal 0.40-1.00 [facility] Comment on above: Result Comment: METH OD TRACEABLE TO IDMS STANDARD Performed By: #### U A #### [facility] ([id number]) [address] [place] [address] [place] [address] eGFR (CKD-EPI) NON-RACE DEPENDENT >90 Normal >59 [facility] Comment on above: Result Comment: Reported eGFR is based on the CKD-EPI 2020 equation that does not use a race coefficient. Performed By: #### U A #### [facility] ([id number]) [address] [place] [address] Glucose [Mass/Vol] 92 mg/dL Normal 65-99 [facility] Comment on above: Performed By: #### U A #### [facility] ([id number]) [address] [place] [address] Potassium [Moles/Vol] 4.7 mmol/L Normal 3.5-5.0 [facility] Comment on above: Performed By: #### U A #### [facility] ([id number]) [address] [place] [address] Sodium [Moles/Vol] 140 mmol/L Normal 134-146 [facility] Comment on above: Performed By: #### U A #### [facility] ([id number]) [address] [place] [address] Urea nitrogen [Mass/Vol] 18 mg/dL Normal 5-23 [facility] Comment on above: Performed By: #### U A #### [facility] ([id number]) [address] [place] [address] BLOOD CULTUREon 10-05-2023 Bacteria identified Aer cx Nom (Bld) SPECIMEN NOTES SUBOPTIMAL VOLUME OF BLOOD COLLECTED, RESULTS MAY BE AFFECTED. CULTURE RESULTS NO GROWTH 5 DAYS Normal [facility] Comment on above: Performed By: #### U A #### [facility] ([id number]) [address] [place] [address] Bacteria identified Aer cx Nom (Bld) SPECIMEN NOTES RIGHT ANTECUBITAL CULTURE RESULTS NO GROWTH 5 DAYS Normal [facility] Comment on above: Performed By: #### U A #### [facility] ([id number]) [address] [place] [address] CBC AND AUTO DIFFon 10-05-19 24 Erythrocyte distribution width (RBC) [Ratio] 14.6 % Normal 11.5-15.0 [facility] Comment on above: Performed By: #### P INR, 16327-6 #### [facility] ([id number]) [address] [place] [address] #### CBCA, 42875-9, BMP, 1987- #### [facility] ([id number]) [address] [facility], [address] [place] [address] Hematocrit (Bld) [Volume fraction] 36.6 % Normal 35-47 [facility] Comment on above: Performed By: #### P INR, 56934-1 #### [facility] ([id number]) [address] [place] [address] #### CBCA, 05171-7, [facility], 1987-07 #### [facility] ([id number]) [address] [place] [address] Hemoglobin (Bld) [Mass/Vol] 12.3 g/dL Normal 11.7-15.5 [facility] Comment on above: Performed By: #### P INR, 38198-6 #### [facility] ([id number]) [address] [place] [address] #### CBCA, 63794-7, [facility], 1987-07 #### [facility] ([id number]) [address] [place] [address] Lymphocytes (Bld) [#/Vol] 1.7 10*3/uL Normal 1.0-3.5 [facility] Comment on above: Performed By: #### P INR, 76338-8 #### [facility] ([id number]) [address] [place] [address] #### CBCLilian, 93388-1, [facility], 1987-07 #### [facility] ([id number]) [address] [place] [address] Lymphocytes/100 WBC (Bld) 59.0 % Normal [facility] Comment on above: Performed By: #### P INR, 58364-1 #### [facility] ([id number]) [address] [place] [address] #### CBCA, 02157-1, BMP, 1987-07 #### [facility] ([id number]) [address] [place] [address] MCH (RBC) [Entitic mass] 39.7 pg High 27-34 [facility] Comment on above: Performed By: #### P INR, 80311-6 #### [facility] ([id number]) [address] [place] [address] #### CBCA, 81553-2, BMP, 1987-07 #### [facility] ([id number]) [address] [place] [address] MCHC (RBC) [Mass/Vol] 33.5 g/dL Normal 32-36 [facility] Comment on above: Performed By: #### P INR, 75673-2 #### [facility] ([id number]) [address] [place] [address] #### CBCA, 30926-6, BMP, 1987-07 #### [facility] ([id number]) [address] [place] [address] MCV (RBC) [Entitic vol] 119 fL High 80-100 [facility] Comment on above: Performed By: #### P INR, 29404-7 #### [facility] ([id number]) [address] [place] [address] #### CBCA, 91843-2, BMP, 1987-07 #### [facility] ([id number]) [address] [place] [address] Monocytes (Bld) [#/Vol] 0.2 10*3/uL Normal 0-0.9 [facility] Comment on above: Performed By: #### P INR, 78726-0 #### [facility] ([id number]) [address] [place] [address] #### CBCA, 93196-5, BMP, 1987-07 #### [facility] ([id number]) [address] [place] [address] Monocytes/100 WBC (Bld) 7.0 % Normal [facility] Comment on above: Performed By: #### P INR, 98023-1 #### [facility] ([id number]) [address] [place] [address]60 #### CBCA, 98421-4, BMP, 1987-07 #### [facility] ([id number]) [address] [place] [address] Neutrophils (Bld) [#/Vol] 1.0 10*3/uL Low 1.5-6.6 [facility] Comment on above: Performed By: #### P INR, 36886-1 #### [facility] ([id number]) [address] [place] [address]9566 #### CBCA, 15282-9, BMP, 1987-07 #### [facility] ([id number]) [address] [place] [address] Platelet mean volume (Bld) [Entitic vol] 8.7 fL Normal 7-12 [facility] Comment on above: Performed By: #### P INR, 35718-0 #### [facility] ([id number]) [address] [place] [address] #### CBCA, 62600-6, BMP, 1987-07 #### [facility] ([id number]) [address] [place] [address] Platelets (Bld) [#/Vol] 290 10*3/uL Normal 150-450 [facility] Comment on above: Performed By: #### P INR, 58677-1 #### [facility] ([id number]) [address] [place] [address]18 #### CBCA, 22717-4, BMP, 1987-07 #### [facility] ([id number]) [address] [place] [address] RBC COUNT 3.08 X10E12/L Low 3.80-5.20 [facility] Comment on above: Performed By: #### P INR, 84210-4 #### [facility] ([id number]) [address] [place] [address]042 #### CBCA, 62433-7, BMP, 1987-07 #### [facility] ([id number]) [address] [place] [address] RBC morphology finding Nom (Bld) NORMAL Normal [facility] Comment on above: Performed By: #### P INR, 14490-1 #### [facility] ([id number]) [address] [place] [address] 16523 #### CBCA, 44752-0, BMP, 1987-07 #### [facility] ([id number]) [address] [facility], [address] [place] [address] SEG NEUTROPHIL 34.0 % Normal [facility] Comment on above: Performed By: #### P INR, 49657-6 #### [facility] ([id number]) [address] [place] [address]7592 #### CBCA, 17600-3, BMP, 1987-07 #### [facility] ([id number]) [address] [facility], [address] [place] [address] WBC (Bld) [#/Vol] 2.9 10*3/uL Low 4.0-11.0 [facility] Comment on above: Performed By: #### P INR, 20963-0 #### [facility] ([id number]) [address] [place] [address]43 #### CBCA, 50620-0, BMP, 1987-07 #### [facility] ([id number]) [address] [facility], [address] [place] [address] CRP [Mass/Vol]on 10-05-2023 C REACTIVE PROTEIN 0.1 mg/dL Normal 0.000-0.7 4 4 [facility] Comment on above: Performed By: #### U A #### [facility] ([id number]) [address] [place] [address] ESR Photometric method (Bld) [Velocity]on 10-05-2023 ESR, ERYTHROCYTE SEDIMENTATION RATE 1 mm/h Normal 0-30 [facility] Comment on above: Performed By: #### U A #### [facility] ([id number]) [address] [place] [address] PROTIME AND INRon 10-05-2023 INR Coag (PPP) [Relative time] 1.0 {INR} Normal 0.8-1.1 [facility] Comment on above: Performed By: #### P INR, 67972-5 #### [facility] ([id number]) [address] [place] [address]76 #### CBCA, 20873-5, BMP, 1987-07 #### [facility] ([id number]) [address] [facility] [place] [address] PT Coag (PPP) [Time] 12.1 s Normal 9.8-13.2 [facility] Comment on above: Result Comment: NEW REFERENCE RANGE Performed By: #### P INR, 88077-9 #### [facility] ([id number]) [address] [place] [address] #### CBCA, 45088-8, BMP, 1987-07 #### [facility] ([id number]) [address], [address] [place] [address] aPTT Coag (PPP) [Time]on aPTT Coag (Bld) [Time] 25 s Low 26-37 [facility] Comment on above: Result Comment: NEW REFERENCE RANGE Performed By: #### P INR, 20642-6 #### [facility] ([id number]) [address] [place] [address] #### CBCA, 13784-2, BMP, 1987- #### [facility] ([id number]) [address], [address] [place] [address] URINALYSISon 10-02-2023 Bilirubin Ql (U) Negative Normal NEG [facility] Comment on above: Performed By: #### U A #### [facility] ([id number]) [address] [place] [address] BLOOD/HGB Negative Normal NEG [facility] Comment on above: Performed By: #### U A #### [facility] ([id number]) [address] [place] [address] Color (U) YELLOW Normal YELLOW [facility] Comment on above: Performed By: #### U A #### [facility] ([id number]) [address] [place] [address] Glucose Ql (U) Negative Normal NEG [facility] Comment on above: Performed By: #### U A #### [facility] ([id number]) [address] [place] [address] Ketones Ql (U) Negative Normal NEG [facility] Comment on above: Performed By: #### U A #### [facility] ([id number]) [address] [place] [address] Leukocyte esterase Test strip Ql (U) Trace Abnormal NEG [facility] Comment on above: Performed By: #### U A #### [facility] [facility] ([id number]) [address] [place] [address] Nitrite Ql (U) Positive Abnormal NEG [facility] Comment on above: Performed By: #### U A #### [facility] ([id number]) [address] [place] [address] 95647 pH (U) 7.5 [pH] Normal 5.0-8.5 [facility] Comment on above: Performed By: #### U A #### [facility] ([id number]) [address] [place] [address] 43492 Protein Ql (U) Negative Normal NEG [facility] Comment on above: Performed By: #### U A #### [facility] ([id number]) [address] [place] [address] 19303 R.B.CELLS 0 /hpf Normal 0-5 [facility] Comment on above: Performed By: #### U A #### [facility] ([id number]) [address] [place] [address] 67491 Specific gravity (U) [Rel density] 1.020 Normal 1.003-1.03 5 [facility] Comment on above: Performed By: #### U A #### [facility] ([id number]) [address] [place] [address] 60242 SQUAMOUS EPITHELIUM 12 /hpf High 0-5 [facility] Comment on above: Performed By: #### U A #### [facility] ([id number]) [address] [place] [address] [place] [address] TURBIDITY CLOUDY Abnormal CLEAR [facility] Comment on above: Performed By: #### U A #### [facility] ([id number]) [address] [place] [address] 26401 Urobilinogen Qn (U) 1.0 {Tra'U}/dL Normal <1.1 [facility] Comment on above: Performed By: #### U A #### [facility] ([id number]) [address] [place] [address] [place] [address] W.B.CELLS 5 /hpf Normal 0-5 [facility] Comment on above: Performed By: #### U A #### [facility] ([id number]) [address] [place] [address] BASIC METABOLIC PANLon 09-29 Anion gap [Moles/Vol] 8 mmol/L Normal 5-15 [facility] Comment on above: Performed By: #### C BCA, BMP #### [facility] ([id number]) [address], [address] [place] [address] Calcium [Mass/Vol] 10.1 mg/dL Normal 8.5-10.5 [facility] Comment on above: Performed By: #### C BCA, BMP #### [facility] ([id number]) [address], [address] [place] [address] Chloride [Moles/Vol] 104 mmol/L Normal 98-109 [facility] Comment on above: Performed By: #### C BCA, BMP #### [facility] ([id number]) [address], [address] [place] [address] CO2 [Moles/Vol] 28 mmol/L Normal 22-32 [facility] Comment on above: Performed By: #### C BCA, BMP #### [facility] ([id number]) [address], [address] [place] [address] Creatinine [Mass/Vol] 0.62 mg/dL Normal 0.40-1.00 [facility] Comment on above: Result Comment: METH OD TRACEABLE TO IDMS STANDARD Performed By: #### C BCA, BMP #### [facility] ([id number]) [address], [address] [place] [address] eGFR (CKD-EPI) NON-RACE DEPENDENT >90 Normal >59 [facility] Comment on above: Result Comment: Reported eGFR is based on the CKD-EPI 2020 equation that does not use a race coefficient. Performed By: #### C BCA, BMP #### [facility] ([id number]) [address] [address] [place] [address] Glucose [Mass/Vol] 99 mg/dL Normal 65-99 [facility] Comment on above: Performed By: #### C BCA, BMP #### [facility] ([id number]) [address] [address] [place] [address] Potassium [Moles/Vol] 3.8 mmol/L Normal 3.5-5.0 [facility] Comment on above: Performed By: #### C BCA, BMP #### [facility] ([id number]) [address] [address] Sodium [Moles/Vol] 140 mmol/L Normal 134-146 [facility] Comment on above: Performed By: #### C BCA, BMP #### [facility] ([id number]) [address] [address] [place] [address] Urea nitrogen [Mass/Vol] 15 mg/dL Normal 5-23 [facility] Comment on above: Performed By: #### C BCA, BMP #### [facility] ([id number]) [address] [address] CBC AND AUTO DIFFon 09-30-19 24 Eosinophils (Bld) [#/Vol] 0.0 10*3/uL Normal 0.0-0.4 [facility] Comment on above: Performed By: #### C BCA, BMP #### [facility] ([id number]) [address] [address] Eosinophils/100 WBC (Bld) 1.0 % Normal [facility] Comment on above: Performed By: #### C BCA, BMP #### [facility] ([id number]) [address] [place] [address] Erythrocyte distribution width (RBC) [Ratio] 15.0 % Normal 11.5-15.0 [facility] Comment on above: Performed By: #### Amanda WILKINSON, BMP #### [facility] ([id number]) [address] [place] [address] Hematocrit (Bld) [Volume fraction] 38.6 % Normal 35-47 [facility] Comment on above: Performed By: #### C MINH, BMP #### [facility] ([id number]) [address], [facility] [address] [place] [address] Hemoglobin (Bld) [Mass/Vol] 12.9 g/dL Normal 11.7-15.5 [facility] Comment on above: Performed By: #### C MINH, BMP #### [facility] ([id number]) [address], [address] [place] [address] Lymphocytes (Bld) [#/Vol] 1.6 10*3/uL Normal 1.0-3.5 [facility] Comment on above: Performed By: #### Amanda WILKINSON, BMP #### [facility] ([id number]) [address], [address] [place] [address] Lymphocytes/100 WBC (Bld) 49.0 % Normal [facility] Comment on above: Performed By: #### Amanda WILKINSON, BMP #### [facility] ([id number]) [address] [address] [place] [address] MCH (RBC) [Entitic mass] 39.9 pg High 27-34 [facility] Comment on above: Performed By: #### C MINH, BMP #### [facility] ([id number]) [address] [address] [place] [address] MCHC (RBC) [Mass/Vol] 33.5 g/dL Normal 32-36 [facility] Comment on above: Performed By: #### C MINH, BMP #### [facility] ([id number]) [address], [address] [place] [address] MCV (RBC) [Entitic vol] 119 fL High 80-100 [facility] Comment on above: Performed By: #### C MINH, BMP #### [facility] ([id number]) [address], [address] [place] [address] Monocytes (Bld) [#/Vol] 0.4 10*3/uL Normal 0-0.9 [facility] Comment on above: Performed By: #### C MINH, BMP #### [facility] ([id number]) [address] [place] [address] Monocytes/100 WBC (Bld) 11.0 % Normal [facility] Comment on above: Performed By: #### C MINH, BMP #### [facility] ([id number]) [address], [address] [place] [address] Neutrophils (Bld) [#/Vol] 1.2 10*3/uL Low 1.5-6.6 [facility] Comment on above: Performed By: #### C MINH, BMP #### [facility] ([id number]) [address], [address] [place] [address] Platelet mean volume (Bld) [Entitic vol] 8.5 fL Normal 7-12 [facility] Comment on above: Performed By: #### C MINH, BMP #### [facility] ([id number]) [address], [address] [place] [address] Platelets (Bld) [#/Vol] 316 10*3/uL Normal 150-450 [facility] Comment on above: Performed By: #### C MINH, BMP #### [facility] ([id number]) [address], [address] [place] [address] RBC COUNT 3.24 X10E12/L Low 3.80-5.20 [facility] Comment on above: Performed By: #### Amanda WILKINSON, BMP #### [facility] ([id number]) [address], [address] [place] [address] RBC morphology finding Nom (Bld) NORMAL Normal [facility] Comment on above: Performed By: #### Amanda WILKINSON, BMP #### [facility] ([id number]) [address], [facility] [address] [place] [address] SEG NEUTROPHIL 39.0 % Normal [facility] Comment on above: Performed By: #### Amanda WILKINSON, BMP #### [facility] ([id number]) [address], [address] [address] WBC (Bld) [#/Vol] 3.2 10*3/uL Low 4.0-11.0 [facility] Comment on above: Performed By: #### Amanda WILKINSON, BMP #### [facility] ([id number]) [address], [address] [address] BLOOD CULTUREon 09-26-2023 Bacteria identified Aer cx Nom (Bld) CULTURE RESULTS NO SPECIMEN RECEIVED IN LABORATORY ACCOUNT CREDITED Normal [facility] Comment on above: Performed By: #### 1 7928-3 #### [facility] ([id number]) [address], [address] [address] XR CHEST 2 VWSon 09-19-2023 XR CHEST [...] Xavier MD on 09/19/2023 2:40 PM Normal [facility] URINALYSISon 07-25-2023 Bilirubin Ql (U) Negative Normal NEG [facility] Comment on above: Performed By: #### U A #### [facility] ([id number]) [address] [place] [address] [place] [address] BLOOD/HGB Large Abnormal NEG [facility] Comment on above: Performed By: #### U A #### [facility] ([id number]) [address] [place] [address] [place] [address] CA OXALATE CRYSTALS PRESENT Abnormal NONE [facility] Comment on above: Performed By: #### U A #### [facility] ([id number]) [address] [place] [address] [place] [address] Color (U) YELLOW Normal YELLOW [facility] Comment on above: Performed By: #### U A #### [facility] ([id number]) [address] [place] [address] [place] [address] Glucose Ql (U) Negative Normal NEG [facility] Comment on above: Performed By: #### U A #### [facility] ([id number]) [address] [place] [address] [place] [address] Ketones Ql (U) Negative Normal NEG [facility] Comment on above: Performed By: #### U A #### [facility] ([id number]) [address] [place] [address] [place] [address] Leukocyte esterase Test strip Ql (U) SMALL Abnormal NEG [facility] Comment on above: Performed By: #### U A #### [facility] ([id number]) [address] [place] [address] Nitrite Ql (U) Positive Abnormal NEG [facility] Comment on above: Performed By: #### U A #### [facility] ([id number]) [address] [place] [address] pH (U) 6.0 [pH] Normal 5.0-8.5 [facility] Comment on above: Performed By: #### U A #### [facility] ([id number]) [address] [place] [address] Protein Ql (U) Negative Normal NEG [facility] Comment on above: Performed By: #### U A #### [facility] ([id number]) [address] [place] [address] R.B.CELLS 10 /hpf High 0-5 [facility] Comment on above: Performed By: #### U A #### [facility] ([id number]) [address] [place] [address] Specific gravity (U) [Rel density] 1.025 Normal 1.003-1.03 5 [facility] Comment on above: Performed By: #### U A #### [facility] ([id number]) [address] [place] [address] SQUAMOUS EPITHELIUM 10 /hpf High 0-5 [facility] Comment on above: Performed By: #### U A #### [facility] ([id number]) [address] [place] [address] [place] [address] TURBIDITY HAZY Abnormal CLEAR [facility] Comment on above: Performed By: #### U A #### [facility] ([id number]) [address] [place] [address] Urobilinogen Qn (U) 0.2 {Tra'U}/dL Normal <1.1 [facility] Comment on above: Performed By: #### U A #### [facility] ([id number]) [address] [place] [address] W.B.CELLS 31 /hpf High 0-5 [facility] Comment on above: Performed By: #### U A #### [facility] ([id number]) [address] [place] [address] URINE CULTUREon 07-25-2023 Bacteria identified Cx Nom [...] <=1 F TRIMETH/SULFAMETHOXAZOLE S <=1/19 F Susceptible [facility] Comment on above: Performed By: #### 6 30-4 #### [facility] ([id number]) [address] [facility] [place] [address] CT BRAIN WO CONTon [address] CT BRAIN WO CONT CT BRAIN WO CONT CLINICAL INFORMATION: Cerebrovascular accident (CVA), unspecified mechanism ([facility]) TECHNIQUE: CT BRAIN WO CONT CT [...] Richards MD on 06/10/2023 3:07 PM Normal [facility] CALCIUMon 08-02-2022 Calcium [Mass/Vol] 9.2 mg/dL Normal 8.5-10.1 [facility] Comment on above: Performed By: #### C A, CREA #### [facility] [address] [place], [place] [address] Dr. Carmelina Saarh CREATININEon 08-02-2022 Creatinine [Mass/Vol] 0.88 mg/dL Normal 0.55-1.02 [facility] Comment on above: Performed By: #### C A, CREA ####[facility] [address] [place] [address]DrMelly Sarah EGFR-AF JAMAICAN >60 Normal >=60 [facility] Comment on above: Performed By: #### C A, CREA ####[facility] [address] [place] [address]DrMelly Sarah EGFR-NON AF JAMAICAN >60 Normal >=60 [facility] Comment on above: Performed By: #### C A, CREA ####[facility] [address] [place] [address]Dr. Carmelina Sarah MG MAMM SCREEN 3D CONCEPCIÓN CADon 03-24-2022 MG MAMM SCREEN 3D CONCEPCIÓN CAD Patient: ANGELIQUE MELO Exam Date: 03/24/2022 : 1965 Gender:F Ordering : DR ALEX THOMASON . Admission #: [id number] Family : Order #: [id number] CLICK HERE TO VIEW EXAM RADIOLOGY REPORT [...] lymphoma cancer at age 44. LOCATION: [facility] BREAST COMPOSITION: Scattered areas fibroglandular density. [...] Frances Quezada MD on 03/25/2022 at 08:12 [facility] XR DEXA BONE DENSITYon 03-24 XR DEXA BONE DENSITY DEXA Bone Density Study CLINICAL: Evaluate bone mineral density. Postmenopausal COMPARISON: None FINDINGS: The bone density study was assessed by dual-energy x-ray absorptiometry with the [employer] scanner. The test results are expressed in [...] FRANCES NICHOLS Date: 2022-03-24 09:29 Normal [facility] CBC AUTO DIFFon 02-22-2022 BASO # 0.3 103/ul Critically high 0.0-0.1 [facility] Comment on above: Performed By: #### C BC ####[facility] [address] [place], [place] [address]Dr. Carmelina Sarah Basophils/100 WBC (Bld) 3.0 % Critically high 0.2-2.0 [facility] Comment on above: Performed By: #### C BC ####[facility] [address] [place] [address]Dr. Yilan Sarah EO # 0.3 103/ul Normal 0.0-0.7 [facility] Comment on above: Performed By: #### C BC ####[facility] [address] [place], [place] [address]Dr. Yilan Sarah Eosinophils/100 WBC (Bld) 3.1 % Normal 0.9-7.0 [facility] Comment on above: Performed By: #### C BC ####[facility] [address] [place], [place] [address]Dr. Carmelina Sarah Erythrocyte distribution width (RBC) [Ratio] 15.8 % Critically high 11.0-15.0 [facility] Comment on above: Performed By: #### C BC ####[facility] [address] [place] [address]Dr. Carmelina Sarah Hematocrit (Bld) [Volume fraction] 48.5 % Critically high 36.0-48.0 [facility] Comment on above: Performed By: #### C BC ####[facility] [address] [place] [address]Dr. Candemargarita Sarah Hemoglobin (Bld) [Mass/Vol] 15.6 g/dL Normal 12.0-16.0 [facility] Comment on above: Performed By: #### C BC ####[facility] [address] [place] [address]Dr. Carmelina Sarah IG # 0.05 10e3/ul Critically high 0.00-0.03 [facility] Comment on above: Performed By: #### C BC ####[facility] [address] [place] [address]Dr. Carmelina Sarah IG % 0.5 % Normal 0.0-0.5 [facility] Comment on above: Performed By: #### C BC ####[facility] [address] [place] [address]Dr. Carmelina Sarah LYMPH # 3.2 103/ul Normal 1.2-3.8 [facility] Comment on above: Performed By: #### C BC ####[facility] [address] [place] [address]Dr. Carmelina Sarah Lymphocytes/100 WBC (Bld) 33.4 % Normal 20.5-60.0 [facility] Comment on above: Performed By: #### C BC ####[facility] [address] [place] [address]Dr. Camrelina Sarah MANUAL DIFF REQ NO Normal [facility] Comment on above: Performed By: #### C BC ####[facility] [address] [place] [address]Dr. Carmelina Sarah MCH (RBC) [Entitic mass] 28.3 pg Normal 26.7-34.0 [facility] Comment on above: Performed By: #### C BC ####[facility] [address] [place] [address]Dr. Carmelina Sarah MCHC (RBC) [Mass/Vol] 32.2 g/dL Normal 29.9-35.2 [facility] Comment on above: Performed By: #### C BC ####[facility] [address] [place] [address]Dr. Carmelina Tyrel MCV (RBC) [Entitic vol] 88.0 fL Normal 81.0-99.0 [facility] Comment on above: Performed By: #### C BC ####[facility] [address] [place], [place] [address]Dr. Carmelina Tyrel MONO # 0.7 103/ul Normal 0.3-0.8 [facility] Comment on above: Performed By: #### C BC ####[facility] [address] [place], [place] [address]Dr. Candemargarita Sarah Monocytes/100 WBC (Bld) 7.7 % Normal 1.7-12.0 [facility] Comment on above: Performed By: #### C BC ####[facility] [address] [place], [place] [address]Dr. Carmelina Sarah NEUT # 5.0 103/ul Normal 1.4-6.5 [facility] Comment on above: Performed By: #### C BC ####[facility] [address] [place], [place] [address]Dr. Candemargarita Sarah Neutrophils/100 WBC (Bld) 52.3 % Normal 43.0-75.0 [facility] Comment on above: Performed By: #### C BC ####[facility] [address] [place], [place] [address]Dr. Carmelina Tyrel Platelet mean volume (Bld) [Entitic vol] 10.8 fL Normal 9.5-13.5 [facility] Comment on above: Performed By: #### C BC ####[facility] [address] [place], [place] [address]Iq. Carmelina Sarah PLT 765 103/ul Critically high 150-450 [facility] Comment on above: Performed By: #### C BC ####[facility] [address] [place], [place] [address]Os. Carmelina Sarah RBC 5.51 106/ul Critically high 4.20-5.40 [facility] [place] [facility] Comment on above: Performed By: #### C BC ####[facility] [address] [place], [place] [address]Dd. Carmelina Sarah WBC 9.6 103/ul Normal 4.0-11.0 [facility] Comment on above: Performed By: #### C BC ####[facility] [address] [place], [place] [address]Zw. Carmelina Sarah FREE T3on 02-22-2022 FREE T3 3.14 pg/mlL Normal 2.18-3.98 [facility] Comment on above: Performed By: #### F T3, TSH, T4, LIPID, CMP #### [facility] [address] [place] [address] [address] Carmelina Sarah GLYCOHEMOGLOBIN A1Con 2021 ADA RECOMMENDATION SEE BELOW Normal [facility] Comment on above: Result Comment: ADA RECOMMENDED LIMIT 4.0 - 6.0 ADA THERAPEUTIC TARGET < 7.0 ACTION SUGGESTED > 7.0 Performed By: #### A 1C #### [facility] [address] [place] [address] [address] Carmelina Sarah Glucose [Mass/Vol] 108 mg/dL Normal [facility] Comment on above: Performed By: #### A 1C #### [facility] [address] [place] [address] [address] Carmelina Sarah HbA1c (Bld) [Mass fraction] 5.4 % Normal 4.5-6.2 [facility] Comment on above: Performed By: #### A 1C #### [facility] [address] [place] [address] [address] Carmelina Sarah LIPID PROFILEon 02-22-2022 CHOL-HDL RATIO NORM SEE BELOW Normal [facility] Comment on above: Result Comment: 3.3 - 4.4 LOW RISK 4.4 - 7.1 AVERAGE RISK 7.1 - 11.0 MODERATE RISK >11.0 HIGH RISK Performed By: #### F T3, TSH, T4, LIPID, CMP #### [facility] [address] [place] [address] [address] Carmelina Sarah Cholesterol [Mass/Vol] 158 mg/dL Normal <=200 [facility] Comment on above: Performed By: #### F T3, TSH, T4, LIPID, CMP #### [facility] [address] [place] [address] [address] Carmelina Sarah Cholesterol in HDL [Mass/Vol] 62 mg/dL Critically high 40-60 [facility] Comment on above: Performed By: #### F T3, TSH, T4, LIPID, CMP #### [facility] [address] [place] [address] [address] Carmelina Sarah Cholesterol in LDL [Mass/Vol] 81.2 mg/dL Normal [facility] Comment on above: Performed By: #### F T3, TSH, T4, LIPID, CMP #### [facility] [address] [place] [address] [address] Carmelina Sarah Cholesterol.total/ Cholesterol in HDL [Mass ratio] 2.5 {ratio} Normal [facility] Comment on above: Performed By: #### F T3, TSH, T4, LIPID, CMP #### [facility] [address] [place] [address] [address] Carmelina Sarah HDL NORMAL > or = 60 mg/dl - LO W CARDIOVASCULAR RISK <40 mg/dl - HIGH CARDIOVASCULAR RISK Normal [facility] Comment on above: Performed By: #### F T3, TSH, T4, LIPID, CMP #### [facility] [address] [place] [address] [address] Carmelina Sarah LDL CALC NORMAL SEE BELOW Normal [facility] Comment on above: Result Comment: <100 mg/dl OPTIMAL 100 - 129 mg/dl NEAR OR ABOVE OPTIMAL 130 - 159 mg/dl BORDERLINE HIGH 160 - 189 mg/dl HIGH >190 mg/dl VERY HIGH Performed By: #### F T3, TSH, T4, LIPID, CMP #### [facility] [address] [place] [address] [address] Carmelina Sarah Triglyceride [Mass/Vol] 74 mg/dL Normal <=150 [facility] Comment on above: Performed By: #### F T3, TSH, T4, LIPID, CMP #### [facility] [address] [place] [address] [address] Carmelina Sarah VLDL CALC 14.8 mg/dL Normal [facility] Comment on above: Performed By: #### F T3, TSH, T4, LIPID, CMP #### [facility] [address] [place] [address] Dr. Carmelina Sarah PROF 14(COMP METB)on 022 Albumin [Mass/Vol] 3.8 g/dL Normal 3.4-5.0 [facility] Comment on above: Performed By: #### F T3, TSH, T4, LIPID, CMP #### [facility] [address] [place] [address] Dr. Carmelina Sarah Albumin/Globulin [Mass ratio] 1.0 {ratio} Normal [facility] Comment on above: Performed By: #### F T3, TSH, T4, LIPID, CMP #### [facility] [address] [place] [address] Dr. Carmelina Sarah ALP [Catalytic activity/Vol] 102 U/L Normal 46-116 [facility] Comment on above: Performed By: #### F T3, TSH, T4, LIPID, CMP #### [facility] [address] [place] [address] Dr. Carmelina Sarah ALT [Catalytic activity/Vol] 22 U/L Normal 14-59 [facility] Comment on above: Performed By: #### F T3, TSH, T4, LIPID, CMP #### [facility] [address] [place] [address] Dr. Carmelina Sarah Anion gap [Moles/Vol] 11.1 mmol/L Normal [facility] Comment on above: Performed By: #### F T3, TSH, T4, LIPID, CMP #### [facility] [address] [place] [address] Dr. Carmelina Sarah AST [Catalytic activity/Vol] 21 U/L Normal 15-37 [facility] Comment on above: Performed By: #### F T3, TSH, T4, LIPID, CMP #### [facility] [address] [place] [address] [address] Carmelina Sarah Bilirubin [Mass/Vol] 0.5 mg/dL Normal 0.2-1.0 [facility] Comment on above: Performed By: #### F T3, TSH, T4, LIPID, CMP #### [facility] [address] [place] [address] [address] Carmelina Sarah Calcium [Mass/Vol] 9.2 mg/dL Normal 8.5-10.1 [facility] Comment on above: Performed By: #### F T3, TSH, T4, LIPID, CMP #### [facility] [address] [place] [address] Dr. Carmelina Sarah Chloride [Moles/Vol] 104 mmol/L Normal 98-107 [facility] Comment on above: Performed By: #### F T3, TSH, T4, LIPID, CMP #### [facility] [address] [place] [address] Dr. Carmelina Sarah CO2 [Moles/Vol] 27.6 mmol/L Normal 21.0-32.0 [facility] Comment on above: Performed By: #### F T3, TSH, T4, LIPID, CMP #### [facility] [address] [place] [address] Dr. Carmelina Sarah Creatinine [Mass/Vol] 0.93 mg/dL Normal 0.55-1.02 [facility] Comment on above: Performed By: #### F T3, TSH, T4, LIPID, CMP #### [facility] Laboratory [address] [address] [address] Carmelina Sarah EGFR-AF JAMAICAN >60 Normal >=60 [facility] Comment on above: Performed By: #### F T3, TSH, T4, LIPID, CMP #### [facility] [address] [place] [address] Dr. Carmelina Sarah EGFR-NON AF JAMAICAN >60 Normal >=60 [facility] Comment on above: Performed By: #### F T3, TSH, T4, LIPID, CMP #### [facility] [address] [address] [address] Carmelina Sarah Globulin (S) [Mass/Vol] 3.7 g/dL Normal [facility] Comment on above: Performed By: #### F T3, TSH, T4, LIPID, CMP #### [facility] [address] [place] [address] Dr. Carmelina Sarah Glucose [Mass/Vol] 90 mg/dL Normal 74-106 [facility] Comment on above: Performed By: #### F T3, TSH, T4, LIPID, CMP #### [facility] [address] [place] [address] Dr. Carmelina Sarah Potassium [Moles/Vol] 3.7 mmol/L Normal 3.5-5.1 [facility] Comment on above: Performed By: #### F T3, TSH, T4, LIPID, CMP #### [facility] [address] [place] [address] Dr. Carmelina Sarah Protein [Mass/Vol] 7.5 g/dL Normal 6.4-8.2 [facility] Comment on above: Performed By: #### F T3, TSH, T4, LIPID, CMP #### [facility] [address] [place] [address] Dr. Carmelina Sarah Sodium [Moles/Vol] 139 mmol/L Normal 136-145 [facility] Comment on above: Performed By: #### F T3, TSH, T4, LIPID, CMP #### [facility] [address] [place] [address] Dr. Carmelina Sarah Urea nitrogen [Mass/Vol] 19.0 mg/dL Critically high 7.0-18.0 [facility] Comment on above: Performed By: #### F T3, TSH, T4, LIPID, CMP #### [facility] [address] [place] [address] Dr. Carmelina Sarah Urea nitrogen/Creatinin e [Mass ratio] 20.4 mg/mg Normal [facility] Comment on above: Performed By: #### F T3, TSH, T4, LIPID, CMP #### [facility] [address] [place] [address] Dr. Carmelina Sarah T4on 02-22-2022 T4 [Mass/Vol] 8.10 ug/dL Normal 4.80-13.90 [facility] Comment on above: Performed By: #### F T3, TSH, T4, LIPID, CMP #### [facility] [address] [place] [address] Dr. Carmelina Sarah TSHon 02-22-2022 TSH 0.985 uIU/mL Normal 0.358-3.74 0 [facility] Comment on above: Performed By: #### F T3, TSH, T4, LIPID, CMP #### [facility] [address] [place] [address] Dr. Carmelina Sarah VITAMIN D 25 OHon 02-22-2022 VIT D 25-OH 51.9 ng/mL Normal [facility] Comment on above: Performed By: #### V ITAD #### [facility] [address] [place] [address] Dr. Carmelina Sarah VIT D RANGES SEE BELOW Normal [facility] Comment on above: Result Comment: <20 ng/mL Vit D deficient 20 - <30 ng/mL Vit D insufficient 30 - 100 ng/mL Vit D sufficient >100 ng/mL Potential Toxicity Performed By: #### V ITAD #### [facility] [address] [place] [address] Dr. Carmelina Sarah COVID Quick Testingon 2020 Result Negative [employer] Other COVID-19 [facility] SARS-CoV-2 (COVID-19) RNA TIRSO+probe Ql (Unsp spec) Negative Normal Negative [facility] Comment on above: Order Comment: Healt hcare Worker?: N Result Comment: Refe rence: Negative Testing for SARS-CoV-2 by RT-PCR This test was developed and its performance characteristics determined by [employer] ([employer]) and validated at the [facility]. This test has not been FDA [...] is terminated or revoked sooner. PERFORMED BY: [place] [address] PATHOLOGIST CONSUMER STUDIES PROFESSOR TOSHIA GILLIS M.D. Performed By: #### C OVID-19 [facility] #### [facility] [address] [place] [address] COVID-19 Positive/Negativeon 06-09-2020 COVID-19 Positive/Negative Negative Negative [facility] Comment on above: Reference: NegativeT esting for SARS-CoV-2 by RT-PCRThis test was developed and its performance characteristics determined by [employer] ([employer]) and validated at the [facility]. This test has not been FDA [...] Otheron 06-09-2020 Coronavirus 2019 PCR Interp N/A [facility] Automated basophil %on 06-06 Basophils/100 WBC (Bld) 2.9 % [facility] Automated basophil counton 0 06-06-2020 Basophils (Bld) [#/Vol] 0.3 10*3/uL 0.0-0.2 [facility] Automated blood lymphocyte c ount (number/volume)on 06-06-2020 Lymphocytes (Bld) [#/Vol] 2.4 10*3/uL 1.00-4.8 [facility] Automated blood lymphocyte c ount as percentage of total leukocyteson 06-06-2020 Lymphocytes/100 WBC (Bld) 26.6 % [facility] Automated blood monocyte cou nton 06-06-2020 Monocytes (Bld) [#/Vol] 1.0 10*3/uL 0.0-0.8 [facility] Automated blood platelet cou nt (count/volume)on 06-06-2020 Platelets (Bld) [#/Vol] 527 10*3/uL 150-450 [facility] Automated blood platelet joi n volume measurementon 06-06-2020 Platelet mean volume (Bld) [Entitic vol] 9.6 fL 6.3-10.7 [facility] Automated eosinophil %on Eosinophils/100 WBC (Bld) 4.8 % [facility] Automated eosinophil counton 06-06-2020 Eosinophils (Bld) [#/Vol] 0.4 10*3/uL 0.0-0.45 [facility] Automated erythrocyte distri bution width ratioon 06-06-2020 Erythrocyte distribution width (RBC) [Ratio] 15.8 % 11.9-15.3 [facility] Automated erythrocyte mean c orpuscular hemoglobin (mass per erythrocyte)on 06-06-2020 MCH (RBC) [Entitic mass] 28.7 pg 24.7-34.3 [facility] Automated erythrocyte mean c orpuscular hemoglobin concentration measurement (mass/volon 06-06-2020 MCHC (RBC) [Mass/Vol] 33.4 g/dL 32.0-35.0 [facility] Automated erythrocyte mean c orpuscular volumeon 06-06-2020 MCV (RBC) [Entitic vol] 85.9 fL 80-100 [facility] Automated monocyte %on 06-06 Monocytes/100 WBC (Bld) 10.9 % [facility] Automated neutrophil %on Neutrophils/100 WBC (Bld) 54.8 % [facility] Blood erythrocytes automated count (number/volume)on 06-06-2020 RBC (Bld) [#/Vol] 5.10 10*6/uL 3.60-5.[address] [facility] Blood hemoglobin measurement (mass/volume)on 06-06-2020 Hemoglobin (Bld) [Mass/Vol] 14.7 g/dL 11.8-15.4 [facility] Blood leukocytes automated c ount (number/volume)on 06-06-2020 WBC (Bld) [#/Vol] 9.0 10*3/uL 4.5-11.0 [facility] Blood neutrophil count by au tomated method (number/volume)on 06-06-2020 Neutrophils (Bld) [#/Vol] 4.9 10*3/uL 1.8-7.7 [facility] Body fluid albumin measureme nt (mass/volume)on 06-06-2020 Albumin (Body fld) [Mass/Vol] 4.0 g/dL 3.2-5.5 [facility] Complete Blood Count Auto Di ffon 06-06-2020 Basophils (Bld) [#/Vol] 0.3 10*3/uL High 0.0-0.2 [facility] Comment on above: Result Comment: PERF ORMED BY: [facility] [address] [place] [address] PATHOLOGIST CONSUMER STUDIES PROFESSOR TOSHIA GILLIS M.D. Performed By: #### C MP, CBC #### [facility] [address] [place] [address] [place] Basophils/100 WBC (Bld) 2.9 % Normal . [facility] Comment on above: Performed By: #### C MP, CBC #### [facility] [address] Eosinophils (Bld) [#/Vol] 0.4 10*3/uL Normal 0.0-0.45 [facility] Comment on above: Performed By: #### C MP, CBC #### [place] [address] [place] Eosinophils/100 WBC (Bld) 4.8 % Normal . [facility] Comment on above: Performed By: #### C MP, CBC #### [address] Erythrocyte distribution width (RBC) [Ratio] 15.8 % High 11.9-15.3 [facility] Comment on above: Performed By: #### C MP, CBC #### [address] Hematocrit (Bld) [Volume fraction] 43.8 % Normal 34.0-46.4 [facility] Comment on above: Performed By: #### C MP, CBC #### [address] Hemoglobin (Bld) [Mass/Vol] 14.7 g/dL Normal 11.8-15.4 [facility] Comment on above: Performed By: #### C MP, CBC #### [place] [address] [place] Lymphocytes (Bld) [#/Vol] 2.4 10*3/uL Normal 1.00-4.8 [facility] Comment on above: Performed By: #### C MP, CBC #### [place] [address] [place] Lymphocytes/100 WBC (Bld) 26.6 % Normal . [facility] Comment on above: Performed By: #### C MP, CBC #### [address] MCH (RBC) [Entitic mass] 28.7 pg Normal 24.7-34.3 [facility] Comment on above: Performed By: #### C MP, CBC #### [address] MCV (RBC) [Entitic vol] 85.9 fL Normal 80-100 [facility] Comment on above: Performed By: #### C MP, CBC #### [facility] [address] Mean Corpuscular HGB Conc 33.4 g/dL Normal 32.0-35.0 [facility] Comment on above: Performed By: #### C MP, CBC #### [facility] [address] [place] [address] [place] Monocytes (Bld) [#/Vol] 1.0 10*3/uL High 0.0-0.8 [facility] Comment on above: Performed By: #### C MP, CBC #### [facility] [address] [place] [address] [place] Monocytes/100 WBC (Bld) 10.9 % Normal . [facility] Comment on above: Performed By: #### C MP, CBC #### [facility] [address] [place] [address] [place] Neutrophils (Bld) [#/Vol] 4.9 10*3/uL Normal 1.8-7.7 [facility] Comment on above: Performed By: #### C MP, CBC #### [facility] [address] [place] [address] [place] Neutrophils/100 WBC (Bld) 54.8 % Normal . [facility] Comment on above: Performed By: #### C MP, CBC #### [facility] [address] [id number] [place] Nucleated RBC/100 WBC (Bld) [Ratio] 0.0 % Normal 0-0.5 [facility] Comment on above: Performed By: #### C MP, CBC #### [facility] [address] [place] [address] [place] Platelet mean volume (Bld) [Entitic vol] 9.6 fL Normal 6.3-10.7 [facility] Comment on above: Performed By: #### C MP, CBC #### [facility] [address] [id number] [place] Platelets (Bld) [#/Vol] 527 10*3/uL High 150-450 [facility] Comment on above: Performed By: #### C MP, CBC #### [address] RBC (Bld) [#/Vol] 5.10 10*6/uL High 3.60-5.00 [facility] Comment on above: Performed By: #### C MP, CBC #### [address] WBC (Bld) [#/Vol] 9.0 10*3/uL Normal 4.5-11.0 [facility] Comment on above: Performed By: #### C MP, CBC #### [facility] [address] [place] [address] Comprehensive Metabolic Pane chrystal 06-06-2020 Albumin [Mass/Vol] 4.0 g/dL Normal 3.2-5.5 [facility] Comment on above: Performed By: #### C MP, CBC #### [address] Albumin/Globulin [Mass ratio] 1.6 {ratio} Normal [facility] Comment on above: Performed By: #### C MP, CBC #### [address] ALP [Catalytic activity/Vol] 107 U/L High 32-92 [facility] Comment on above: Result Comment: PERF ORMED BY: [place] [address] PATHOLOGIST CONSUMER STUDIES PROFESSOR TOSHIA GILLIS M.D. Performed By: #### C MP, CBC #### [address] ALT [Catalytic activity/Vol] 22 U/L Normal 10-60 [facility] Comment on above: Performed By: #### C MP, CBC #### [address] AST [Catalytic activity/Vol] 23 U/L Normal 10-42 [facility] Comment on above: Performed By: #### C MP, CBC #### [address] Bilirubin [Mass/Vol] 0.7 mg/dL Normal 0.3-1.2 [facility] Comment on above: Performed By: #### C MP, CBC #### [facility] [address] Calcium [Mass/Vol] 9.7 mg/dL Normal 8.2-10.2 [facility] Comment on above: Performed By: #### C MP, CBC #### [facility] [address] Chloride [Moles/Vol] 101 mmol/L Normal 95-114 [facility] Comment on above: Performed By: #### C MP, CBC #### [address] CO2 [Moles/Vol] 25.1 mmol/L Normal 22.0-30.0 [facility] Comment on above: Performed By: #### C MP, CBC #### [address] Creatinine [Mass/Vol] 0.97 mg/dL Normal 0.44-1.03 [facility] Comment on above: Performed By: #### C MP, CBC #### [address] Estimated GFR ( Almita > 60 Normal [facility] Comment on above: Result Comment: GFR estimated reference range: According to KDOQI guidelines, <60 ml/min/1.73m2 is sufficient to diagnose a patient with chronic kidney disease. Performed By: #### C MP, CBC #### [place] [address] [place] Estimated GFR (Non- Am 59 Normal [facility] Comment on above: Performed By: #### C MP, CBC #### [place] [address] [place] Globulin (S) [Mass/Vol] 2.5 g/dL Normal [facility] Comment on above: Performed By: #### C MP, CBC #### [place] [address] [place] Glucose [Mass/Vol] 80 mg/dL Normal 70-100 [facility] Comment on above: Result Comment: [place] Glucose Reference Range is dependent on time and content of last meal. Glucose of more than 200 mg/dL in a nonstressed, ambulatory subject supports the diagnosis of Diabetes Mellitus. ADA recommended reference range Performed By: #### C MP, CBC #### [facility] [address] [id number] [place] Potassium [Moles/Vol] 5.1 mmol/L Normal 3.5-5.1 [facility] Comment on above: Performed By: #### C MP, CBC #### [facility] [address] [place] [address] [place] Protein [Mass/Vol] 6.5 g/dL Normal 6.1-7.9 [facility] Comment on above: Performed By: #### C MP, CBC #### [facility] [address] [id number] [place] Sodium [Moles/Vol] 136 mmol/L Normal 136-146 [facility] Comment on above: Performed By: #### C MP, CBC #### [facility] [address] [place] [address] [place] Urea nitrogen [Mass/Vol] 15 mg/dL Normal 9-23 [facility] Comment on above: Performed By: #### C MP, CBC #### [facility] [address] [id number] [place] ECG 12 lead ECGon 06-06-2020 ECG 12 lead ECG [facility] [place] [address] [place] [address] Electrocardiograph Report Signed Patient: Angelique Melo MR#: [id number] : 1965 Acct:[id number] Age/Sex: 54 / F ADM Date: 06/06/20 Loc: PS Room: Type: [facility] Attending Dr: Sesar Gutiérrez MD [...] DO 06/06/20914 Signed By: 06/06/20 1507 Normal [facility] Estimated glomerular filtrat ion rate (GFR) non- Americanon 06-06-2020 GFR/1.73 sq M predicted among non-blacks MDRD (S/P/Bld) [Vol rate/Area] 59 mL/min/{1.73_m2} [facility] Hematocrit [Volume Fraction] of Blood by Automated counton 06-06-2020 Hematocrit (Bld) [Volume fraction] 43.8 % 34.0-46.4 [facility] Otheron 06-06-2020 GFR/1.73 sq M.predicted MDRD (S/P/Bld) [Vol rate/Area] mL/min/{1.73_m2} [facility] Comment on above: GFR estimated refere nce range: According to KDOQI guidelines, <60 ml/min/1.73m2 is sufficient to diagnose a patient with chronic kidney disease. Nucleated RBC/100 WBC (Bld) [Ratio] 0.0 % 0-0.5 [facility] Creatinine Clearance (Chem N/A [facility] Protein [Mass/volume] in Ser um or Plasmaon 06-06-2020 Protein [Mass/Vol] 6.5 g/dL 6.1-7.9 [facility] Serum globulin measurement b y calculation (mass/volume)on 06-06-2020 Globulin (S) [Mass/Vol] 2.5 g/dL [facility] Serum or plasma alanine berry otransferase measurement without P-5'-P (enzymatic activion 06-06-2020 ALT No additional P-5'-P [Catalytic activity/Vol] 22 U/L 10-60 [facility] Serum or plasma albumin/glob ulin mass ratioon 06-06-2020 Albumin/Globulin [Mass ratio] 1.6 {ratio} [facility] Serum or plasma alkaline anju sphatase measurement (enzymatic activity/volume)on 06-06-2020 ALP [Catalytic activity/Vol] 107 U/L 32-92 [facility] Serum or plasma aspartate am inotransferase measurement (enzymatic activity/volume)on 06-06-2020 AST [Catalytic activity/Vol] 23 U/L 10-42 [facility] Serum or plasma calcium sammi urement (mass/volume)on 06-06-2020 Calcium [Mass/Vol] 9.7 mg/dL 8.2-10.2 [facility] Serum or plasma chloride joi surement (moles/volume)on 06-06-2020 Chloride [Moles/Vol] 101 mmol/L 95-114 [facility] Serum or plasma creatinine m easurement with calculation of estimated glomerular filtron 06-06-2020 Creatinine [Mass/Vol] 0.97 mg/dL 0.44-1.03 [facility] Serum or plasma glucose sammi urement (mass/volume)on 06-06-2020 Glucose [Mass/Vol] 80 mg/dL 70-100 [facility] Comment on above: ADA recommended refe rence rangeRandom Glucose Reference Range is dependent on time and content of last meal. Glucose of more than 200 mg/dL in a nonstressed, ambulatory subject supports the diagnosis of Diabetes Mellitus. Serum or plasma potassium me asurement (moles/volume)on 06-06-2020 Potassium [Moles/Vol] 5.1 mmol/L 3.5-5.1 [facility] Serum or plasma sodium measu rement (moles/volume)on 06-06-2020 Sodium [Moles/Vol] 136 mmol/L 136-146 [facility] Serum or plasma total biliru bin measurement (mass/volume)on 06-06-2020 Bilirubin [Mass/Vol] 0.7 mg/dL 0.3-1.2 [facility] Serum or plasma total carbon dioxide measurement (moles/volume)on 06-06-2020 CO2 [Moles/Vol] 25.1 mmol/L 22.0-30.0 [facility] Serum or plasma urea nitroge n measurement (mass/volume)on 06-06-2020 Urea nitrogen [Mass/Vol] 15 mg/dL 12-18 [facility] MRI KNEE RIGHT WO [...] by: Rogerio Mathis 05/09/20 Final result Normal [facility] tear of the posterior horn of the medial meniscus. Horizontal tear of the posterior horn and body of the lateral meniscus. [facility] [employer] Work Phone: EXAMINATION: MRI OF THE RIGHT [...] fracture, dislocation or avascular necrosis is seen. [facility] Phone: [place], Mhpn Incoming R adiant Results From [employer] - 05/09/2020 9:03 PM EST EXAMINATION: MRI [...] horn and body of the lateral meniscus. [facility] [employer] [facility] Phone: Coding Summary.on 03-29-2018 Coding Summary. CODING DATE: 019 [facility] STATUS: Home (Routine DC) PAYOR: [facility] [place] [facility] DESCRIPTION 5312 Level 2 Lower GI Procedures ADMIT DX: REASON FOR VISIT DX: R19.5 Other fecal abnormalities FINAL DX: PRINCIPAL: D12.5 Benign neoplasm of sigmoid colon SECONDARY: E78.00 Pure hypercholesterolemia, unspecified F32.9 Major depressive disorder, single episode, unspecified F17.200 Nicotine dependence, unspecified, uncomplicated PYMT PROC APC STAT DESCRIPTION DOCTOR NAME DATE 24755 5312 T Colonoscopy, flexible; Gala DESOUZA MD 03/20/2018 with removal of tumor(s), polyp(s), or other lesion(s) by snare technique 24790 Anesthesia for lower Ben Deal JR, DO [...] Revised Date Saved: 03/29/2018 03:45 pm Normal [facility] Main OR Intraoperative Recor don 03-22-2018 Main OR Intraoperative Record IntraOp Document Type FT Summary Primary Physician: Gala DESOUZA MD Finalized Date/Time: 03/22/18 14:43:28 Pt. Name: ANGELIQUE MELO./Sex: 1965 Female Med Rec #: [id number] Physician: Gala DESOUZA MD Financial #: [id number] Pt. Type: O Room/Bed: / Admit/Disch: 03/20/18 [...] to review and send charges Sixto Sellers [employer]ADITIONAL [facility] PRACTITIONER Case Attendance FT Entry 1 Entry 2 Entry 3 Case Attendee Elma Duffy MD, Gala Bautista RN, Zelda Role Performed Anesthesiologist Surgeon - Primary Rolling Down Machine Operator - Primary [employer] Developer Time In 03/20/18 09:05:00 03/20/18 09:05:00 03/20/18 09:05:00 Time Out 03/20/18 09:29:00 03/20/18 09:29:00 03/20/18 09:29:00 Procedure COLONOSCOPY(.) COLONOSCOPY(.) COLONOSCOPY(.) Comments supervising Last Modified By: Michele RN, Zelda Bautista RN, Zelda Bautista RN, Zelda 03/20/18 09:29:46 03/20/18 09:29:46 03/20/18 09:29:46 Entry 4 Entry 5 Case Attendee Samara Blanco [place] [employer] Role Performed Scrub - Other Scrub - [...] Participants Gala DESOUZA MD, Workman RN, Zelda [facility] Complete 03/20/18 09:07:00 [...] and tissue Entry 1 Skin Integrity Intact, [place], Warm, and Skin Abnormality No Dry Outcomes [...] injury caused by extraneous objects Transport To [facility] Pre-Care Text: Transports according to individual [...] RN Patient Status Stable Skin. Condition Intact, [place], Warm, and Dry Airway Maintenance Oxygen in Use? No Airway Device N/A Outcomes Met? Yes Last Modified By: Zelda Bautista RN 03/20/18 06:49:43 Post-Care Text: The patient is free from signs and symptoms of injury related to transfer/transport General Comments: REPORT GIVEN TO COVER CUTTER MACHINE / AW primary care nurse Administration FT Pre-Care Text: Verifies allergies, administers prescribed medications and solutions, administers prescribed antibiotic therapy and immunizing agents as ordered, evaluates response to medications Administers prescribed medications and solutions Entry 1 Expiration Date Yes Outcomes Met? Yes Verified Last Modified By: Zelda Bautista RN 03/20/18 06:49:20 Post-Care Text: The patient received appropriate medication(s) safely administered during the perioperative period For [facility] please see scanned medication reconcilliation form [...] 03/20/18 09:30 Lisseth Sellers CST 03/22/18 14:43 [facility] Inpatient Patient Summaryon 03-20-2018 [facility] INFORMATION Name: ANGELIQUE MELO PHYSICIANS Admitting Physician: Gala DESOUZA MD Physician: Gala DESOUZA MD PCP: Cruzito Thomason MD Diagnosis: Colon polyp Comment: PATIENT EDUCATION INFORMATIONInstructions:Colon oscopy, Care After Surgery Salam (CUSTOM); Colon PolypsMedication Leaflets:Follow up:With: Address: When: [place]ala [place] [address] Business (1) Within 5 to 7 days Comments: Call for any problems. Call for followup appointment MEDICATION LISTComment: Normal [facility] Main OR PACU I Recordon 02-26 Main OR PACU I Record PACU Phase I Document Type FT Summary Primary Physician: Gala DESOUZA MD Finalized Date/Time: 03/20/18 10:19:08 Pt. Name: ANGELIQUE MELO Bernie/Sex: 1965 Female Med Rec #: [id number] Physician: Gala DESOUZA MD Financial #: [id number] Pt. Type: O Room/Bed: / Admit/Disch: 03/20/18 [...] By: Katerin Joe RN 03/20/18 10:19 Normal [facility] Main OR Preoperative Recordo n 03-20-2018 Main OR Preoperative Record Holding Area Document Type FT Summary Primary Physician: Gala DESOUZA MD Finalized Date/Time: 03/20/18 08:17:50 Pt. Name: LORIE ANGELIQUEALEA Gibbs/Sex: 1965 Female Med Rec #: [id number] Physician: Gala DESOUZA MD Financial #: [id number] Pt. Type: O Room/Bed: / Admit/Disch: 03/20/18 [...] By: Zelda Bautista RN 03/20/18 08:17 Normal [facility] Operative Reporton --201 8 Operative Report [...] tolerated the procedure well [facility].Gala Desouza M.D.lkrDictated: 03/20/2018 #[id number]: 03/20/2018 #[id number]: Alex Thomason M.D.Gala Desouza M.D. [facility] Comment on above: Result Comment: Elec [...] 06/05/2012 Document Reviewed: 05/23/2012ExitCare? Patient Information ?2014 [employer]. This information is not intended to replace advice given to you by your health care provider. Make sure you discuss any questions you have with your health care provider. Normal [facility] Progress Note-Physicianon Protein mass conc Patient: [...] All ProblemsResolved: Polyp colon / SNOMED CT [id number] Physical Examination Intake and Output Denies significant [...] criteria met. Condition good. Normal [facility] Comment on above: Result Comment: Elec [...] Results review: No qualifying data available. Plan [place] [employer] Anesthesiologists (ASA) physical status classification: Class II. Anesthetic Preoperative Plan Anesthesia: Monitored anesthesia care and general anesthesia if required.. Anesthetic plan, risks, benefits, and alternatives discussed with the patient and/or family. Pt. and/or family present and agree to proceed as planned.. Discussed the importance of abstaining from tobacco products, and offered counseling if desired.. Normal [facility] Comment on above: Result Comment: Elec tronically Signed By: Ben Deal JR, DO.sydni\Date and Time Signed: 03/20/18 08:25 EST Vital Signs Date Time Vital Sign Value Performing Clinician Facility 12-29-2020 10:150400 Body height 177.8 cm Chhaya Spivey Other [facility] Other 12-29-2020 10:15-0400 Body mass index (BMI) [Ratio] 31.56 kg/m2 Chhaya Spivey Other [facility] Other 12-29-2020 10:15-0400 Body temperature 98.2 [degF] Chhaya Spivey Other [facility] Other 12-29-2020 10:15-0400 Body weight 99.79 kg Chhaya Spivye Other [facility] Other 12-29-2020 10:15-0400 SaO2% (BldA) [Mass fraction] 97 % Chhaya Spivey Other [facility] Other Encounters Encounter Date Encounter Type Care Provider Facility Start: 12-12-2023 End: 12-12-2023 ambulatory [facility] Start: 12-09-2023 End: 12-09-2023 ambulatory [facility] Start: 12-02-2023 End: 12-02-2023 ambulatory [facility] Start: 11-22-2023 End: 11-22-[address] [facility] Start: 11-14-2023 End: 11-14-2023 ambulatory [facility] Start: 11-02-2023 End: 11-02-[address] [facility] Start: 10-25-[address] [facility] Start: 10-13-2023 End: 10-13-2023 Evaluation and management of inpatient [facility] Start: 10-10-2023 End: 10-12-2023 Evaluation and management of inpatient [facility] Start: 10-05-2023 End: 10-05-2023 ambulatory [facility] Start: 10-02-2023 End: 10-02-[address] [facility] Start: 09-30-2023 End: 09-30-2023 ambulatory [facility] Start: 09-26-2023 End: 09-26-2023 [facility] Start: 09-26-2023 Encounter for other preprocedural examination ALEX THOMASON [facility] Start: 09-19-2023 End: 09-19-2023 ambulatory MINTURN Lilian [facility] Start: 08-25-2023 End: 08-25-2023 ambulatory ALEX THOMASON [facility] Start: 07-25-2023 End: 07-25-2023 ambulatory SEVERINO HSI[facility] Start: 07-25-2023 Encounter for other preprocedural examination GIGI [facility] Start: 07-21-2023 End: 07-21-2023 ambulatory ALEX THOMASON [facility] Start: 07-07-2023 End: 07-07-2023 ambulatory [facility] Start: 06-10-2023 End: 06-10-2023 ambulatory GIGI [facility] Start: 05-23-2023 Orders Only Valentin Velarde MD Work Phone: [facility] Start: 04-21-2023 End: 04-21-2023 ambulatory ALEX THOMASON [facility] Start: 03-02-2023 Telephone encounter Татьяна Osborn [facility] Comment on above: Post-op Craniotomy Start: 08-02-2022 End: 08-02-[address] ALEX THOMASON . Facility:[facility] Start: 03-26-2022 Encounter for genera l adult medical examination without abnormal findings DR ALEX THOMASON . [facility] Start: 03-24-2022 End: 03-25-[address] [...] End: 05-11-2020 Patient encounter procedure ALEX THOMASON [facility] Start: 05-08-2020 End: 05-10-2020 Subsequent hospital visit by physician [facility] Rm 119 [facility] MRI Comment on above: Right knee pain, uns pecified chronicity Start: 03-20-2018 End: 03-21-2018 Patient encounter procedure Gala Desouza [facility] Procedures Date Procedure Procedure Detail Performing Clinician Start: 07-07-2023 Follow-up visit Follow-up SEBAS GILL Start: 05-08-2020 Mri any jt lower ext rem w/o contrast matrl Alex Thomason Work Phone: Plan of Treatment Date Care Activity Detail Author Start: 03-10-2024 Tobacco Screening Tobacco Screening [facility] Start: 03-07-2024 Adult BMI Screening Adult BMI Screening [facility] Start: 07-21-2023 End: 07-21-2023 Patient encounter procedure 07/21/2023 9:30 AM EDT Appointment [facility] - Neurophysiology [address] [place] [address] [facility] Start: 07-07-2023 End: 07-07-2023 [facility] Start: 06-10-2023 End: 06-10-2023 Patient encounter procedure 06/10/2023 10:00 AM EDT Appointment [facility] [address] [place] [id number] [facility] Start: 04-21-2023 End: 04-21-2023 Patient encounter procedure 04/21/2023 9:30 AM EST Appointment [facility] Neuro[facility]iology [address] [place] [address] [facility] Start: 11-26-2022 Influenza vaccination [facility] Start: 11-27-2019 Influenza vaccination Flu vaccine (#1) [facility] Phone: Start: 06-27-2013 Screening for malignant neoplasm of breast Breast cancer screen [facility] Phone: Start: 06-27-2013 Screening for malignant neoplasm of colon Colon cancer screen colonoscopy [facility] Phone: Start: 06-27-2013 Shingles Vaccine (1 of 2) Shingles Vaccine (1 of 2) [facility] Phone: Start: 2003 Lipid panel Lipid screen [facility] Phone: Start: 06-27-1984 Screening for malignant neoplasm of cervix Cervical cancer screen [facility] Phone: Start: 06-27-1982 Administration of varicella zoster vaccine Zoster (Shingles) Vaccine (1 of 2) [email or web address] Start: 06-27-1982 DTaP,Tdap and Td Vaccines (1 - Tdap) DTaP,Tdap and Td Vaccines (1 - Tdap) [email or web address] Start: 06-27-1982 DTaP/Tdap/Td vaccine (1 - Tdap) DTaP/Tdap/Td vaccine (1 - Tdap) [facility] Phone: Start: 06-27-1981 Adult BMI Follow Up Plan Adult BMI Follow Up Plan [email or web address] Start: 06-27-1978 HIV screening HIV screen [facility] Phone: Start: 1975 Depression Screening [facility]ening [facility] Start: 1965 Hepatitis C screening Hepatitis C screen [facility] Phone: Start: 1965 Tobacco Counseling [facility]ing [facility] End: 03-12-2024 Botox Injection For Cervical Dystonia Botox Injection For Cervical Dystonia Neurology Routine Every 3 Months for 4 Occurrences starting 05/23/2023 until 03/12/2024 [facility] Work Phone: Comment on above: Every 3 Months for 4 Occurrences startin g 05/23/2023 until 03/12/2024 Payers Date Payer Category Payer Worker's Compensation WORKER'S C [employer] WORKER'S [id number] 2018-Present [id number] [id number] 2018 Unknown 1965 Unknown [id number] 2.16.840.1.838124.3.579.2. 176 1965 Unknown [id number] 2.16.840.1.999355.3.579.2. 593 1963 Unknown [id number] 2.16.840.1.825630.3.579.2. 593 1963 Unknown [id number] 2.16.840.1.873307.3.579.2. 593 1963 Unknown [id number] 2.16.840.1.519953.3.579.2. 727 1963 Unknown [id number] 2.16.840.1.670220.3.579.2. 1286 1963 Unknown [id number] 2.16.840.1.898472.3.579.2. 1286 1963 Unknown [id number] 2.16.840.1.774255.3.579.2. 1286 1963 Unknown [id number] 2.16.840.1.685315.3.579.2. 1286 1963 Unknown [id number] 2.16.840.1.890095.3.579.2. 1286 1963 Unknown [id number] 2.16.840.1.834175.3.579.2. 1286 1963 Unknown [id number] 2.16.840.1.765501.3.579.2. 1285 1963 Unknown [id number] 2.16.840.1.774532.3.579.2. 1285 1963 Unknown [id number] 2.16.840.1.966362.3.579.2. 1285 1963 Unknown [id number] 2.16840.1.143192.3.579.2. 1285 1963 Unknown [id number] 2.840.1.705937.3.579.2. 1285 1963 Unknown [id number] 2.840.1.775474.3.579.2. 1285 1963 Unknown [id number] 2.840.1.250870.3.579.2. 1285 1963 Unknown [id number] 2.840.1.443338.3.579.2. 1285 1963 Unknown [id number] 2.840.1.322589.3.579.2. 1285 1963 Unknown [id number] 2.840.1.426291.3.579.2. 1285 1963 Unknown [id number] 2.840.1.642966.3.579.2. 1285 1963 Unknown [id number] 2.840.1.141211.3.579.2. 1285 1963 Unknown [id number] 2.840.1.670539.3.579.2. 1285 1963 Unknown [id number] 2.840.1.745006.3.579.2. 1285 1963 Unknown [id number] 2.840.1.052050.3.579.2. 1285 1963 Unknown [id number] 2.840.1.516328.3.579.2. 1285 1959 Unknown [id number] Self-pay Self Pay [id number] Social History Date Type Detail Facility Tobacco smoking stat us TNIS Unknown if ever smoked [facility] Phone: Start: 1965 Sex Assigned At Not on file [email or web address] Work Phone: Exposure to SARS-CoV -2 (event) Not sure [facility] Work Phone: Start: 06-06-2020 End: 06-06-2020 Tobacco smoking status NHIS Smoker (finding) [facility] Start: 1965 Sex Assigned At Female F [facility] Start: 05-08-2020 End: 03-10-2023 [facility] Start: 02-24-2023 [facility] History of tobacco use Cigarette Smoker [facility] Start: 02-24-2023 Tobacco use and exposure User of smokeless tobacco [facility] Start: 02-24-2023 End: 03-10-2023 Alcohol intake Current drinker of alcohol (finding) [facility] Start: 05-08-2020 End: 03-10-2023 History of Social function [facility] Are you worried or concerned that in the next two months you may not have stable housing that you own, rent or stay in as a part of a household? No [facility] Start: 01-12-2019 Alcohol Comment once in a great whil e [facility] Medical Equipment Procedure Code Equipment Code Equipment Origin al Text Equipment Identifier Dates Gft Bn Ricardo Cnc 15cc Frzdr - [id number] - [id number] Start: 01-12-2019 Patch Dura 16x10 cm Drgrd Bvn Pricrd Strl Lf - [id number] Start: 12-26-2022 Plt Bn 41mm +20d Oblq L 3 - Sna - [id number] Start: 01-12-2019 Scr Bn Ricardo 2.4m m 16mm Strdrv - Sna - [id number] Start: 01-12-2019 Goals Date Patient Goal [...] call today 03/02/23 8:46 from Abi at [facility] who stated that patient had craniotomy a couple months ago and she's noticed in the last few days that it is more swollen. She wanted to know if this was measured after she had the procedure and is requesting call back for medical advice. Please call back and advise, direct callback#: [phone]. Will need to call neurosurgery. Called Abi [...] CT scan that is scheduled on 06/10/2023. Care Director Rn did inform her that neurosurgery was not [...] appt to the same day. Please advise. Care Director Rn received a call from Daysi with [facility]. Daysi is asking if appointment that is scheduled for 05/05/2023 at 9:30 could please be scheduled on the same day with Neurosurgery appointment. Appointment with Neurosurgery is 06/14/2023 at 2:30pm. Daysi is requesting appointment to either before 2:30pm or after, as long as it is on the same day. Please Advise. Daysi is requesting a call back [phone] to further discuss. Thank you so much Called facility back and it rang until it changed to busy tone Called transportation back and no answer This patient follows care under the fellows and they are only here on afternoons. Called [facility] Lashaun answered they're trying to make the appts on the same day so that its easier on the patient. She is going to talk to Dr Hutchinson office and see if they have something they may correlate on a Received call today 04/07/23 1:43 from Tere at [facility] who is requesting a call back in regard to previous message. She said that she got some dates/times from the other provider's office. Please call back and advise, callback#: [phone]. Spoke with Lashaun and correlated Dr Hutchinson appt on the same day as ours documented in this encounter [facility] 03-02-2023 Telephone encount er Note Received call today 03/02/23 8:46 from Abi at [facility] who stated that patient had craniotomy a couple months ago and she's noticed in the last few days that it is more swollen. She wanted to know if this was measured after she had the procedure and is requesting call back for medical advice. Please call back and advise, direct callback#: [phone]. [facility] 03-02-2023 Telephone encount er Note Will need to call neurosurgery. [facility] 03-02-2023 Telephone encount er Note Called Abi and informed her that if it is about surgery site, she should call neurosurgery and provided the number for it. She voiced understanding. [facility] 03-02-2023 Telephone encount er Note Daysi with Transportation is asking for the appointment (05/05/2023) with stroke to rescheduled on same day with the patients appointment (06/09/2023) with neurosurgery. Also, she is asking for the appointment to be schedule after the CT scan that is scheduled on 06/10/2023. Care Director Rn did inform her that neurosurgery was not in our office, she asked to clinical staff to make arrangements with neurosurgery. Please advise [facility] 03-02-2023 Telephone encount er Note Daysi contacted our office back stating that both appts (neurology and neurosurgery) need to be moved to after the appt for her CT scan which is on 06/10/2023. She was transferred to Neurosurgery to reschedule that appt and once that appt is rescheduled we could possibly reschedule our appt to the same day. Please advise. [facility] 03-02-2023 Telephone encount er Note Care Director Rn received a call from Daysi with [facility]. Daysi is asking if appointment that is scheduled for 05/05/2023 at 9:30 could please be scheduled on the same day with Neurosurgery appointment. Appointment with Neurosurgery is 06/14/2023 at 2:30pm. Daysi is requesting appointment to either before 2:30pm or after, as long as it is on the same day. Please Advise. Daysi is requesting a call back [phone] to further discuss. Thank you so much [facility] 03-02-2023 Telephone encount er Note Called facility back and it rang until it changed to busy tone Called transportation back and no answer This patient follows care under the fellows and they are only here on afternoons. [facility] 03-02-2023 Telephone encount er Note Called facility Lashaun answered they're trying to make the appts on the same day so that its easier on the patient. She is going to talk to Dr Hutchinson office and see if they have something they may correlate on a [facility] 03-02-2023 Telephone encount er Note Received call today 04/07/23 1:43 from Tere at [facility] who is requesting a call back in regard to previous message. She said that she got some dates/times from the other provider's office. Please call back and advise, callback#: [phone]. [facility] 03-02-2023 Telephone encount er Note Spoke with Lashaun and correlated Dr Hutchinson appt on the same day as ours [facility] 12-29-2020 Evaluation note Encounter Date Diagnosis Assessment [...] care instructions given in writting by [facility] At Home document. [facility] Other History general Narrative - Reported* Type Description Date Surgical History carpal tunnel release- bilatera l Surgical History hysterectomy Surgical History ORIF left wrist [facility] Other InstructionsNot on filedocumented in this encounter [facility] on filedocumented in this encounter [facility] Summary Purpose Family History No Family History [...] Documents on File Type Date Recorded Patient Primer Boxer Expl anation DNR Physician Order 01/18/2023 4:20 PM Latest Code Status on File Code Status Date Activated Date Inactivated Comments DNR Comfort Care Arrest (DNR-CCA) [place] 12/31/2022 11:45 AM 01/11/2023 7:55 PM Code Status History Code Status Date Activated Date Inactivated Comments Full Code 12/26/2022 4:32 AM 12/31/2022 11:45 AM Documents on File Type Date Recorded Patient Primer Boxer Expl anation DNR Physician Order 01/18/2023 4:20 PM Latest Code Status on File Code Status Date Activated Date Inactivated Comments DNR Comfort Care Arrest (DNR-CCA) [place] 12/31/2022 11:45 AM 01/11/2023 7:55 PM Code Status History Code Status Date Activated Date Inactivated Comments Full Code 12/26/2022 4:32 AM 12/31/2022 11:45 AM Reason for Referral Status Reason Specialty Diagnoses / Procedures Referre d By Contact Referred To Contact Closed Radiology Diagnoses Right knee pain, unspecified chronicity Procedures MRI KNEE RIGHT WO CONTRAST Alex Thomason MD [facility] [place] [address] Specialty Diagnoses / Procedures Referred By Contac t Referred To Contact Procedures Botox Injection For Cervical Dystonia Valentin Velarde MD [address], [address] [place] [address] Referral ID Status Reason Start Date Expiration Date V isits Requested Visits Authorized [id number] Pending Review 05/23/2023 05/22/2024 4 4 Assessments Diagnosis Right knee pain, unspecified chronicity Chief Complaint and Reason for Visit Chief Complaint Knee Pain Chief Complaint Knee Pain Knee Pain Additional Source Comments INFORMATION SOURCE (unrecogn ized section and content) DATE CREATED AUTHOR 03/30/2018 [employer] [facility] DATE CREATED AUTHOR AUTHOR'S ORGANIZ ATION 05/12/2020 [facility] DATE CREATED AUTHOR AUTHOR'S ORGANIZ ATION 03/16/2021 [facility] DATE CREATED AUTHOR AUTHOR'S ORGANIZ ATION 08/03/2022 [facility] DATE CREATED AUTHOR AUTHOR'S ORGANIZ ATION 11/05/2023 [facility] DATE CREATED AUTHOR AUTHOR'S ORGANIZ ATION 12/11/2023 [facility] DATE CREATED AUTHOR AUTHOR'S ORGANIZ ATION 12/13/2023 [facility] Reason for Visit (unrecogniz ed section and content) Status Reason Specialty Diagnoses / Procedures Referre d By Contact Referred To Contact Closed Radiology Diagnoses Right knee pain, unspecified chronicity Procedures MRI KNEE RIGHT WO CONTRAST Alex Thomason MD [address] [place] [address] Reason Onset Date Comments Post-op Craniotomy 03/02/2023 Care Teams (unrecognized sec tion and content) 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 [facility] [employer] [facility]. provides no warranty or guarantee of the accuracy or completeness of information in this document.
[2024-02-03] MEDS: LIDOCAINE HCL 10 ML, SODIUM BICARBONATE 1 MEQ INJ (09:50)
--- NOTE | 2024-02-03 11:14 | SUR.PREOP ---
01/26/24 Called pt and spoke with to reschedule and review all information. 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 Instructed him on procedure, date, time, and prep. He is to hold her ASA x 5 days prior to biopsy.
== END 2024-02-03 10:25 | disposition home or self-care (01) ==
LOC: US 08:52
PROVIDERS: Radiology Diagnostic Radiology; PCP Family Medicine; Visit Provider Nurse Practitioner Family
DX: E04.2 Nontoxic multinodular goiter (principal)
CPT/HCPCS: 10005; 88173

== ENCOUNTER 2024-02-10 13:38 | Outpatient (OUT) | payer OTHER, SELFPAY ==
--- NOTE | 2024-02-10 13:44 | MR_ITS ---
The [address] [address] Patient Name: ROXANNA MELO MRN: [id number] date: 1965 Sex: F Assigned Patient Location: MRI Current Patient Location: Accession/Order Number: [id number] Exam Date: 02/10/2024 14:00 Report Date: 02/14/2024 14:51 At the request of: RAMA PRITCHETT Procedure: MR abdomen wo/w con EXAMINATION: MR abdomen wo/w con HISTORY: Renal Mass COMPARISON: CT abdomen pelvis 02/14/2023 TECHNIQUE: A comprehensive MRI examination of the abdomen was performed to optimize visualization of suspected pathology. Images were obtained with and/or without intravenous Dotarem contrast as indicated by exam type. FINDINGS: LIVER: No enlargement, atrophy, abnormal signal, or significant focal lesion. BILIARY: No visible dilatation or calcification. PANCREAS: No lesion, fluid collection, ductal dilatation, or atrophy. SPLEEN: No enlargement or focal lesion. KIDNEYS: Adjacent the left kidney superior pole cortex is a 2.7 x 0.9 x 1.7 cm slightly heterogeneous area which is areas of increased T1 and T2 signal suggesting blood products. Mild enhancement of thin capsules. ADRENALS: No mass or enlargement. AORTA/VASCULAR: No aneurysm or dissection. RETROPERITONEUM: No mass or adenopathy. BOWEL/MESENTERY: No visible mass, obstruction, or bowel wall thickening. ABDOMINAL WALL: No mass or hernia. BONES: No bony lesion or fracture. LUNG BASES: No visible pleural disease. Lung bases not well assessed with MRI. OTHER: Negative. MR/MR abdomen wo/w con IMPRESSION: 1. Left kidney superior pole cortical lesion suspected represent complex/hemorrhagic cysts; not appreciably changed in size allowing for differences in technique and lack of contrast on prior CT study. Follow-up CT abdomen without and with IV contrast in 6 months is recommended to document continued stability. Electronically authenticated by: MARGARITA LESLIE Date: 02/14/2024 14:51
--- OUTSIDE RECORDS SUMMARY | 2024-02-10 13:55 | XMS_ITS | CCD ---
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 Role Phone Nill, Malik R Unavailable Unavailable Nill, Malik R Unavailable Unavailable Nill, Malik R Unavailable Unavailable Rama Thomason~[phone] UNKNOWN Unavailable Unavailable RAMA THOMASON Referring Unavailable RAMA THOMASON M Primary Care Unavailable Rama Thomason Primary Care Provider Rama Thomason Primary Care Provider Sesar Gutiérrez Attending Provider Chhaya Spivey Unavailable SHREAYS ., DR ONTIVEROS Attending Unavailable HOY ., [...] Unavailable HOY ., DR ONTIVEROS Consulting Unavailable MOODUS, DR FRANCES Del Valle Consulting Unavailable FRANCES NICHOLS Consulting Unavailable Rama Thomason MD Primary Care Provider [phone] RAMA THOMASON Referring Unavailable RAMA THOMASON M Primary Care Unavailable SEBAS GILL Referring Unavailable RAMA THOMASON M Primary Care Unavailable SEBAS GILL Admitting Unavailable SEBAS GILL Attending Unavailable RAMA THOMASON M Primary Care Unavailable RAMA THOMASON M Primary Care Unavailable LELO MENDEZ Attending Unavailable RAMA THOMASON M Referring Unavailable RAMA THOMASON M Primary Care Unavailable RAMA THOMASON M Referring Unavailable HOY, RAMA M Primary Care Unavailable GIGI FITZPATRICK Referring Unavailable HOY, RAMA M Primary Care Unavailable МАРИЯSEVERINO Quintana M Referring Unavailable HOY, RAMA M Primary Care Unavailable SEBAS GILL Referring Unavailable HOY, RAMA M Primary Care Unavailable OLELO RAYMUNDO Referring Unavailable HOY, RAMA M Primary Care Unavailable SEBAS GILL Referring Unavailable HOY, RAMA M Primary Care Unavailable HOY, RAMA M Referring Unavailable HOY, RAMA M Primary Care Unavailable HAJA URRUTIA Attending Unavailable HAJA URRUTIA Referring Unavailable HOY, RAMA M Primary Care Unavailable HAJA URRUTIA Attending Unavailable HAJA URRUTIA M Referring Unavailable HOY, RAMA M Primary Care Unavailable SEBAS GILL Attending Unavailable HOY, RAMA M Referring Unavailable HOY, RAMA M Primary Care Unavailable HOY, RAMA M Referring Unavailable HOY, RAMA M Primary Care Unavailable HOY, RAMA M Referring Unavailable HOY, RAMA M Primary Care Unavailable HAJA URRUTIA Attending Unavailable LELO MENDEZ Referring Unavailable HOY, RAMA M Primary Care Unavailable HOY, RAMA M Referring Unavailable HOY, RAMA M Primary Care Unavailable GIGI FITZPATRICK Attending Unavailable HAJA URRUTIA Attending Unavailable HOY, RAMA M Referring Unavailable HOY, RAMA M Primary Care Unavailable Ena Tran Admitting Unavailable Ena Tran Attending Unavailable Unavailable Unavailable Unavailable Allergies Allergy Classification Reported Allergen(s) Allergy Type Date of Onset Reaction(s) Facility (1 source) No Known Medication Allergies; Translations: [No Known Medication Allergies] Propensity to adverse reactions (disorder) [facility] Repository Medications Current Medications Medication [...] 9:50am docusate sodium 50 mg / sennosides, jail 8.6 mg oral tablet (2 sources) take [...] needed. 0 02/02/2023 Active polyethylene glycol 3350 17992 mg powder for oral solution (2 sources) [...] 07-07-2023 Episodic Other aftercare (1 source) Other assisted (current) drug therapy; Translations: [OTH [facility] ARCHITECT CURRENT DRUG THERAPY] Onset: 02-27-2022 Episodic Other [...] Juan Asher DO on 12/06/2023 8:51 AM Malik Mosher MD have personally reviewed the image(s) and agree with and/or edited the report Finalized by Malik Cheung MD on 12/06/2023 9:45 AM Normal [facility] CT CTA CHESTon 12-06-2023 CT CTA [...] dedicated thyroid ultrasound. Approved by Resident Frances Fitzpatrick MD on 12/06/2023 7:54 AM Art Mosher have personally reviewed the image(s) and agree with and/or edited the report Finalized by Art Gale on 12/06/2023 2:35 PM Normal [facility] BASIC METABOLIC PANLon 10-11 Anion gap [Moles/Vol] 7 mmol/L Normal 5-[address] [facility] Comment on above: Performed By: #### C BCA, BMP #### [facility] ([id number]) [address], [address] [place] [address] Calcium [Mass/Vol] 8.9 mg/dL Normal 8.5-10.5 [facility] Comment on above: Performed By: #### C BCA, BMP #### [facility] ([id number]) [address], [address] [place] [address] Chloride [Moles/Vol] 105 mmol/L Normal 98-[address] [facility] Comment on above: Performed By: #### C BCA, BMP #### [facility] ([id number]) [address] [place] [address] CO2 [Moles/Vol] 27 mmol/L Normal 22-[address] [facility] Comment on above: Performed By: #### C BCA, BMP #### [facility] ([id number]) [address] [place] [address] Creatinine [Mass/Vol] 0.50 mg/dL Normal 0.40-1.[address] [facility] Comment on above: Result Comment: METH OD TRACEABLE TO IDMS STANDARD Performed By: #### C BCA, BMP #### [facility] ([id number]) [address], [address] [place] [address] eGFR (CKD-EPI) NON-RACE DEPENDENT >90 Normal >[address] [facility] Comment on above: Result Comment: Reported eGFR is based on the CKD-EPI 2020 equation that does not use a race coefficient. Performed By: #### C BCA, BMP #### [facility] ([id number]) [address], [address] [place] [address] Glucose [Mass/Vol] 99 mg/dL Normal 65-99 [facility] Comment on above: Performed By: #### C BCA, BMP #### [facility] ([id number]) [address], [address] [place] [address] Potassium [Moles/Vol] 3.6 mmol/L Normal 3.5-5.[address] [facility] Comment on above: Performed By: #### C MINH, BMP #### [facility] ([id number]) [address] [address] [place] [address] Sodium [Moles/Vol] 139 mmol/L Normal 134-146 [facility] Comment on above: Performed By: #### C MINH, BMP #### [facility] ([id number]) [address] [address] [place] [address] Urea nitrogen [Mass/Vol] 15 mg/dL Normal 5-[address] [facility] Comment on above: Performed By: #### C MINH, BMP #### [facility] ([id number]) [address] [address] CBC AND AUTO DIFFon 10-12-19 Erythrocyte distribution width (RBC) [Ratio] 14.3 % Normal 11.5-15.[address] [facility] Comment on above: Performed By: #### C MINH, BMP #### [facility] ([id number]) [address] [address] [place] [address] Hematocrit (Bld) [Volume fraction] 27.9 % Low 35-[address] [facility] Comment on above: Performed By: #### C MINH, BMP #### [facility] ([id number]) [address] [address] [place] [address] Hemoglobin (Bld) [Mass/Vol] 9.5 g/dL Low 11.7-15.[address] [facility] Comment on above: Performed By: #### C BCA, BMP #### [facility] ([id number]) [address] [address] Lymphocytes (Bld) [#/Vol] 2.9 10*3/uL Normal 1.0-3.[address] [facility] Comment on above: Performed By: #### C MINH, BMP #### [facility] ([id number]) [address] [place] [address] Lymphocytes/100 WBC (Bld) 42.0 % Normal [facility] Comment on above: Performed By: #### C BCA, BMP #### [facility] ([id number]) [address] [place] [address] MCH (RBC) [Entitic mass] 40.3 pg High 27-[address] [facility] Comment on above: Performed By: #### C MINH, BMP #### [facility] ([id number]) [address] [place] [address] MCHC (RBC) [Mass/Vol] 34.1 g/dL Normal 32-[address] [facility] Comment on above: Performed By: #### C MINH, BMP #### [facility] ([id number]) [address] [place] [address] MCV (RBC) [Entitic vol] 118 fL High 80-[address] [facility] Comment on above: Performed By: #### C MINH, BMP #### [facility] ([id number]) [address] [place] [address] Monocytes (Bld) [#/Vol] 0.3 10*3/uL Normal 0-0.[address] [facility] Comment on above: Performed By: #### C BCA, BMP #### [facility] ([id number]) [address] [place] [address] Monocytes/100 WBC (Bld) 4.0 % Normal [facility] Comment on above: Performed By: #### C BCA, BMP #### [facility] ([id number]) [address] [place] [address] Neutrophils (Bld) [#/Vol] 3.8 10*3/uL Normal 1.5-6.[address] [facility] Comment on above: Performed By: #### Amanda WILKINSON, BMP #### [facility] ([id number]) [address] [place] [address] OVALOCYTE 1+ Abnormal NONE [facility] Comment on above: Performed By: #### C MINH, BMP #### [facility] ([id number]) [address] [place] [address] Platelet mean volume (Bld) [Entitic vol] 8.4 fL Normal 7-[address] [facility] Comment on above: Performed By: #### C MINH, BMP #### [facility] ([id number]) [address] [place] [address] Platelets (Bld) [#/Vol] 200 10*3/uL Normal 150-[address] [facility] Comment on above: Performed By: #### Amanda WILKINSON, BMP #### [facility] ([id number]) [address] [place] [address] POLYCHROMASIA 1+ Abnormal NONE [facility] Comment on above: Performed By: #### Amanda WILKINSON, BMP #### [facility] ([id number]) [address] [place] [address] RBC COUNT 2.36 X10E12/L Low 3.80-5.[address] [facility] Comment on above: Performed By: #### C MINH, BMP #### [facility] ([id number]) [address] [place] [address] SEG NEUTROPHIL 54.0 % Normal [facility] Comment on above: Performed By: #### Amanda WILKINSON, BMP #### [facility] ([id number]) [address] [place] [address] WBC (Bld) [#/Vol] 7.0 10*3/uL Normal 4.0-11.0 [facility] Comment on above: Performed By: #### C BCA, BMP #### [facility] ([id number]) [address] [place] [address] BASIC METABOLIC PANLon 10-10 Anion gap [Moles/Vol] 9 mmol/L Normal 5-[address] [facility] Comment on above: Performed By: #### C BC, BMP #### [facility] ([id number]) [address] [place] [address] Calcium [Mass/Vol] 9.0 mg/dL Normal 8.5-10.5 [facility] Comment on above: Performed By: #### C BC, BMP #### [facility] ([id number]) [address] [place] [address] Chloride [Moles/Vol] 105 mmol/L Normal 98-[address] [facility] Comment on above: Performed By: #### C BC, BMP #### [facility] ([id number]) [address] [place] [address] CO2 [Moles/Vol] 25 mmol/L Normal 22-[address] [facility] Comment on above: Performed By: #### C BC, BMP #### [facility] ([id number]) [address] [place] [address] Creatinine [Mass/Vol] 0.45 mg/dL Normal 0.40-1.[address] [facility] Comment on above: Result Comment: METH OD TRACEABLE TO IDMS STANDARD Performed By: #### C BC, BMP #### [facility] ([id number]) [address] [place] [address] eGFR (CKD-EPI) NON-RACE DEPENDENT >90 Normal >[address] [facility] Comment on above: Result Comment: Reported eGFR is based on the CKD-EPI 2020 equation that does not use a race coefficient. Performed By: #### C BC, BMP #### [facility] ([id number]) [address] [place] [address] Glucose [Mass/Vol] 127 mg/dL High 65-99 [facility] Comment on above: Performed By: #### C FLAKITO, BMP #### [facility] ([id number]) [address] [place] [address] Potassium [Moles/Vol] 3.6 mmol/L Normal 3.5-5.[address] [facility] Comment on above: Performed By: #### C FLAKITO, BMP #### [facility] ([id number]) [address] [place] [address] Sodium [Moles/Vol] 139 mmol/L Normal 134-146 [facility] Comment on above: Performed By: #### C FLAKITO, BMP #### [facility] ([id number]) [address] [place] [address] Urea nitrogen [Mass/Vol] 15 mg/dL Normal 5-[address] [facility] Comment on above: Performed By: #### Amanda FRAGA, BMP #### [facility] ([id number]) [address] [place] [address] COMPLETE BLOOD COUNTon 10-10 Erythrocyte distribution width (RBC) [Ratio] 14.1 % Normal 11.5-15.[address] [facility] Comment on above: Performed By: #### C FLAKITO, BMP #### [facility] ([id number]) [address] [place] [address] Hematocrit (Bld) [Volume fraction] 30.6 % Low 35-[address] [facility] Comment on above: Performed By: #### C FLAKITO, BMP #### [facility] ([id number]) [address] [place] [address] Hemoglobin (Bld) [Mass/Vol] 10.6 g/dL Low 11.7-15.[address] [facility] Comment on above: Performed By: #### C FLAKITO, BMP #### [facility] ([id number]) [address] [place] [address] MCH (RBC) [Entitic mass] 40.5 pg High 27-[address] [facility] Comment on above: Performed By: #### C FLAKITO, BMP #### [facility] ([id number]) [address] [place] [address] MCHC (RBC) [Mass/Vol] 34.6 g/dL Normal 32-[address] [facility] Comment on above: Performed By: #### C FLAKITO, BMP #### [facility] ([id number]) [address] [place] [address] MCV (RBC) [Entitic vol] 117 fL High 80-[address] [facility] Comment on above: Performed By: #### Amanda FRAGA, BMP #### [facility] ([id number]) [address] [place] [address] Platelet mean volume (Bld) [Entitic vol] 8.1 fL Normal 7-[address] [facility] Comment on above: Performed By: #### C FLAKITO, BMP #### [facility] ([id number]) [address] [place] [address] Platelets (Bld) [#/Vol] 220 10*3/uL Normal 150-[address] [facility] Comment on above: Performed By: #### C FLAKITO, BMP #### [facility] ([id number]) [address] [place] [address] RBC COUNT 2.62 X10E12/L Low 3.80-5.[address] [facility] Comment on above: Performed By: #### Amanda FRAGA, BMP #### [facility] ([id number]) [address] [place] [address] WBC (Bld) [#/Vol] 5.3 10*3/uL Normal 4.0-11.0 [facility] Comment on above: Performed By: #### C BC, BMP #### [facility] ([id number]) [address] [place] [address] CT [address] CONT[address] CT BRAIN WO [...] Jeffers MD on 10/11/2023 2:[address] [facility] Glucose Glucometer (BldC) [M ass/Vol]on 10-10-2023 Glucose [Mass/Vol] 133 mg/dL High 65-99 [facility] BASIC METABOLIC PANLon 10-04 Anion gap [Moles/Vol] 8 mmol/L Normal -15 [facility] Comment on above: Performed By: #### U A #### [facility] ([id number]) [address] [place] [address], [place] [address] Calcium [Mass/Vol] 9.8 mg/dL Normal 8.5-10.5 [facility] Comment on above: Performed By: #### U A #### [facility] ([id number]) [address] [place] [address] Chloride [Moles/Vol] 104 mmol/L Normal 98-109 [facility] Comment on above: Performed By: #### U A #### [facility] ([id number]) [address] [place] [address] CO2 [Moles/Vol] 28 mmol/L Normal 22-32 [facility] Comment on above: Performed By: #### U A #### [facility] ([id number]) [address] [place] [address] Creatinine [Mass/Vol] 0.63 mg/dL Normal 0.40-1.00 [facility] Comment on above: Result Comment: METH OD TRACEABLE TO IDMS STANDARD Performed By: #### U A #### [facility] ([id number]) [address] [place] [address] eGFR (CKD-EPI) NON-RACE DEPENDENT >90 Normal >59 [facility] Comment on above: Result Comment: Reported eGFR is based on the CKD-EPI 1 equation that does not use a race coefficient. Performed By: #### U A #### [facility] ([id number]) [address] [place] [address] Glucose [Mass/Vol] 92 mg/dL Normal 65-99 [facility] Comment on above: Performed By: #### U A #### [facility] ([id number]) [address] [place] [address] Potassium [Moles/Vol] 4.7 mmol/L Normal 3.5-5.0 [facility] Comment on above: Performed By: #### U A #### [facility] ([id number]) [address] [place] [address] Sodium [Moles/Vol] 140 mmol/L Normal 134-146 [facility] Comment on above: Performed By: #### U A #### [facility] ([id number]) [address] [place] [address] Urea nitrogen [Mass/Vol] 18 mg/dL Normal 5-23 [facility] Comment on above: Performed By: #### U A #### [facility] ([id number]) [address] [place] [address] BLOOD CULTUREon 10-05-2023 Bacteria identified Aer cx Nom (Bld) SPECIMEN NOTES SUBOPTIMAL VOLUME OF BLOOD COLLECTED, RESULTS MAY BE AFFECTED. CULTURE RESULTS NO GROWTH 5 DAYS Normal [facility] Comment on above: Performed By: #### U A #### [facility] ([id number]) [address] [place] [address] Bacteria identified Aer cx Nom (Bld) SPECIMEN NOTES RIGHT ANTECUBITAL CULTURE RESULTS NO GROWTH 5 DAYS Normal [facility] Comment on above: Performed By: #### U A #### [facility] ([id number]) [address] [place] [address] CBC AND AUTO DIFFon 10-05-19 Erythrocyte distribution width (RBC) [Ratio] 14.6 % Normal 11.5-15.0 [facility] Comment on above: Performed By: #### P INR, 99039-4 #### [facility] ([id number]) [address] [place] [address] #### CBCA, 68475-9, BMP, 1987- #### [facility] ([id number]) [address] [facility] [place] [address] Hematocrit (Bld) [Volume fraction] 36.6 % Normal 35-47 [facility] Comment on above: Performed By: #### P INR, 03489-0 #### [facility] ([id number]) [address] [place] [address] #### CBCA, 87459-8, BMP, 1987-07 #### [facility] ([id number]) [address] [place] [address] Hemoglobin (Bld) [Mass/Vol] 12.3 g/dL Normal 11.7-15.5 [facility] Comment on above: Performed By: #### P INR, 47240-3 #### [facility] ([id number]) [address] [place] [address] #### CBCA, 96624-6, BMP, 1987-07 #### [facility] ([id number]) [address] [place] [address] Lymphocytes (Bld) [#/Vol] 1.7 10*3/uL Normal 1.0-3.5 [facility] Comment on above: Performed By: #### P INR, 61769-0 #### [facility] ([id number]) [address] [place] [address] #### CBCA, 44123-3, [facility], 1987-07 #### [facility] ([id number]) [address] [place] [address] Lymphocytes/100 WBC (Bld) 59.0 % Normal [facility] Comment on above: Performed By: #### P INR, 87474-9 #### [facility] ([id number]) [address] [place] [address] #### CBCA, 68289-8, BMP, 1987-07 #### [facility] ([id number]) [address] [place] [address] MCH (RBC) [Entitic mass] 39.7 pg High 27-34 [facility] Comment on above: Performed By: #### P INR, 41862-8 #### [facility] ([id number]) [address] [place] [address] #### CBCA, 17123-1, BMP, 1987-07 #### [facility] ([id number]) [address] [facility] [place] [address] MCHC (RBC) [Mass/Vol] 33.5 g/dL Normal 32-36 [facility] Comment on above: Performed By: #### P INR, 53238-5 #### [facility] ([id number]) [address] [place] [address] #### CBCLilian, 62142-6, BMP, 1987-07 #### [facility] ([id number]) [address] [facility] [place] [address] MCV (RBC) [Entitic vol] 119 fL High 80-100 [facility] Comment on above: Performed By: #### P INR, 03331-9 #### [facility] ([id number]) [address] [place] [address] #### CBCLilian, 04573-3, BMP, 1987-07 #### [facility] ([id number]) [address] [facility] [place] [address] Monocytes (Bld) [#/Vol] 0.2 10*3/uL Normal 0-0.9 [facility] Comment on above: Performed By: #### P INR, 83242-5 #### [facility] ([id number]) [address] [place] [address] #### CBCA, 11256-9, BMP, 1987-07 #### [facility] ([id number]) [address] [facility] [place] [address] Monocytes/100 WBC (Bld) 7.0 % Normal [facility] Comment on above: Performed By: #### P INR, 49486-9 #### [facility] ([id number]) [address] [place] [address] #### CBCLilian, 98380-1, BMP, 1987-07 #### [facility] ([id number]) [address] [place] [address] Neutrophils (Bld) [#/Vol] 1.0 10*3/uL Low 1.5-6.6 [facility] Comment on above: Performed By: #### P INR, 03105-3 #### [facility] ([id number]) [address] [place] [address] #### CBCA, 12004-0, BMP, 1987-07 #### [facility] ([id number]) [address] [facility] [place] [address] Platelet mean volume (Bld) [Entitic vol] 8.7 fL Normal 7-12 [facility] Comment on above: Performed By: #### P INR, 44537-2 #### [facility] ([id number]) [address] [place] [address] #### CBCA, 30158-3, BMP, 1987-07 #### [facility] ([id number]) [address] [facility] [place] [address] Platelets (Bld) [#/Vol] 290 10*3/uL Normal 150-450 [facility] Comment on above: Performed By: #### P INR, 32804-3 #### [facility] ([id number]) [address] [place] [id number] #### CBCA, 27809-3, BMP, 1987-07 #### [facility] ([id number]) [address], [address] [place] [address] RBC COUNT 3.08 X10E12/L Low 3.80-5.20 [facility] [facility] Comment on above: Performed By: #### P INR, 17081-9 #### [facility] ([id number]) [address] [place] [address]2018 #### CBCA, 03675-7, BMP, 1987-07 #### [facility] ([id number]) [address] [facility], [address] [place] [address] RBC morphology finding Nom (Bld) NORMAL Normal [facility] Comment on above: Performed By: #### P INR, 48645-6 #### [facility] ([id number]) [address] [place] [address] 78947 #### CBCA, 93462-3, BMP, 1987-07 #### [facility] ([id number]) [address] [place] [address], [address] [place] [address] SEG NEUTROPHIL 34.0 % Normal [facility] Comment on above: Performed By: #### P INR, 07273-2 #### [facility] ([id number]) [address] [place] [address] 09894 #### CBCA, 87804-5, BMP, 1987-07 #### [facility] ([id number]) [address] [place] [address], [address] [place] [address] WBC (Bld) [#/Vol] 2.9 10*3/uL Low 4.0-11.0 [facility] Comment on above: Performed By: #### P INR, 31460-8 #### [facility] ([id number]) [address] [place] [address] 59785 #### CBCA, 91681-1, BMP, 1987-07 #### [facility] ([id number]) [address] [facility], [address] [place] [address] CRP [Mass/Vol]on 10-05-2023 C REACTIVE PROTEIN 0.1 mg/dL Normal 0.000-0.7 4 4 [facility] Comment on above: Performed By: #### U A #### [facility] ([id number]) [address] [place] [address] 80[address] ESR Photometric method (Bld) [Velocity]on 10-05-2023 ESR, ERYTHROCYTE SEDIMENTATION RATE 1 mm/h Normal 0-30 [facility] Comment on above: Performed By: #### U A #### [facility] ([id number]) [address] [place] [address] 47[address] PROTIME AND INRon 10-05-2023 INR Coag (PPP) [Relative time] 1.0 {INR} Normal 0.8-1.1 [facility] Comment on above: Performed By: #### P INR, 70055-2 #### [facility] ([id number]) [address] [place] [address] 80873 #### CBCA, 07329-0, BMP, 1987-07 #### [facility] ([id number]) [address] [facility], [address] [place] [address] PT Coag (PPP) [Time] 12.1 s Normal 9.8-13.2 [facility] Comment on above: Result Comment: NEW REFERENCE RANGE Performed By: #### P INR, 84926-6 #### [facility] ([id number]) [address] [place] [address] 61839 #### CBCA, 80548-5, BMP, 1987-07 #### [facility] ([id number]) [address] [facility], [address] [place] [address] aPTT Coag (PPP) [Time]on aPTT Coag (Bld) [Time] 25 s Low 26-37 [facility] Comment on above: Result Comment: NEW REFERENCE RANGE Performed By: #### P INR, 16889-1 #### [facility] ([id number]) [address] [place] [address] 81979 #### CBCA, 97111-2, BMP, 1988- #### [facility] ([id number]) [address] [facility], [address] [place] [address] URINALYSISon 10-02-2023 Bilirubin Ql (U) Negative Normal NEG [facility] Comment on above: Performed By: #### U A #### [facility] ([id number]) [address] [place] [address] BLOOD/HGB Negative Normal NEG [facility] Comment on above: Performed By: #### U A #### [facility] ([id number]) [address] [place] [address] 62268 Color (U) YELLOW Normal YELLOW [facility] Comment on above: Performed By: #### U A #### [facility] ([id number]) [address] [place] [address] 39353 Glucose Ql (U) Negative Normal NEG [facility] Comment on above: Performed By: #### U A #### [facility] ([id number]) [address] [place] [address] Ketones Ql (U) Negative Normal NEG [facility] Comment on above: Performed By: #### U A #### [facility] ([id number]) [address] [place] [address] 14787 Leukocyte esterase Test strip Ql (U) Trace Abnormal NEG [facility] Comment on above: Performed By: #### U A #### [facility] ([id number]) [address] [place] [address] 46[address] Nitrite Ql (U) Positive Abnormal NEG [facility] Comment on above: Performed By: #### U A #### [facility] ([id number]) [address] [place] [address] 00446 pH (U) 7.5 [pH] Normal 5.0-8.5 [facility] Comment on above: Performed By: #### U A #### [facility] ([id number]) [address] [place] [address] 38949 Protein Ql (U) Negative Normal NEG [facility] Comment on above: Performed By: #### U A #### [facility] ([id number]) [address] [place] [address] 85991 R.B.CELLS 0 /hpf Normal 0-5 [facility] Comment on above: Performed By: #### U A #### [facility] ([id number]) [address] [place] [address] 41329 Specific gravity (U) [Rel density] 1.020 Normal 1.003-1.03 5 [facility] Comment on above: Performed By: #### U A #### [facility] ([id number]) [address] [place] [address] 45760 SQUAMOUS EPITHELIUM 12 /hpf High 0-5 [facility] Comment on above: Performed By: #### U A #### [facility] ([id number]) [address] [place] [address] [place] [address] TURBIDITY CLOUDY Abnormal CLEAR [facility] Comment on above: Performed By: #### U A #### [facility] ([id number]) [address] [place] [address] 08614 Urobilinogen Qn (U) 1.0 {Tra'U}/dL Normal <1.1 [facility] Comment on above: Performed By: #### U A #### [facility] ([id number]) [address] [facility] [place] [address] W.B.CELLS 5 /hpf Normal 0-5 [facility] Comment on above: Performed By: #### U A #### [facility] ([id number]) [address] [facility], [place] [address] BASIC METABOLIC PANLon 09-29 Anion gap [Moles/Vol] 8 mmol/L Normal 5-15 [facility] Comment on above: Performed By: #### C BCA, BMP #### [facility] ([id number]) [address], [address] [place] [address] Calcium [Mass/Vol] 10.1 mg/dL Normal 8.5-10.5 [facility] Comment on above: Performed By: #### C BCA, BMP #### [facility] ([id number]) [address], [address] [place] [address] Chloride [Moles/Vol] 104 mmol/L Normal 98-109 [facility] Comment on above: Performed By: #### C BCA, BMP #### [facility] ([id number]) [address], [address] [place] [address] CO2 [Moles/Vol] 28 mmol/L Normal 22-32 [facility] Comment on above: Performed By: #### C BCA, BMP #### [facility] ([id number]) [address], [address] [place] [address] Creatinine [Mass/Vol] 0.62 mg/dL Normal 0.40-1.00 [facility] Comment on above: Result Comment: METH OD TRACEABLE TO IDMS STANDARD Performed By: #### C BCA, BMP #### [facility] ([id number]) [address], [address] [place] [address] eGFR (CKD-EPI) NON-RACE DEPENDENT >90 Normal >59 [facility] Comment on above: Result Comment: Reported eGFR is based on the CKD-EPI 2020 equation that does not use a race coefficient. Performed By: #### C MINH, BMP #### [facility] ([id number]) [address], [address] [place] [address] Glucose [Mass/Vol] 99 mg/dL Normal 65-99 [facility] Comment on above: Performed By: #### C MINH, BMP #### [facility] ([id number]) [address] [address] [place] [address] Potassium [Moles/Vol] 3.8 mmol/L Normal 3.5-5.0 [facility] Comment on above: Performed By: #### Amanda WILKINSON, BMP #### [facility] ([id number]) [address], [address] [place] [address] Sodium [Moles/Vol] 140 mmol/L Normal 134-146 [facility] Comment on above: Performed By: #### C MINH, BMP #### [facility] ([id number]) [address] [facility] [address] [place] [address] Urea nitrogen [Mass/Vol] 15 mg/dL Normal 5-23 [facility] Comment on above: Performed By: #### C MINH, BMP #### [facility] ([id number]) [address] [address] [place] [address] CBC AND AUTO DIFFon 09-30-19 24 Eosinophils (Bld) [#/Vol] 0.0 10*3/uL Normal 0.0-0.4 [facility] Comment on above: Performed By: #### C MINH, BMP #### [facility] ([id number]) [address] [address] Eosinophils/100 WBC (Bld) 1.0 % Normal [facility] Comment on above: Performed By: #### Amanda WILKINSON, BMP #### [facility] ([id number]) [address], [address] [place] [address] Erythrocyte distribution width (RBC) [Ratio] 15.0 % Normal 11.5-15.0 [facility] Comment on above: Performed By: #### C MINH, BMP #### [facility] ([id number]) [address], [address] [place] [address] Hematocrit (Bld) [Volume fraction] 38.6 % Normal 35-47 [facility] Comment on above: Performed By: #### C MINH, BMP #### [facility] ([id number]) [address], [address] [place] [address] Hemoglobin (Bld) [Mass/Vol] 12.9 g/dL Normal 11.7-15.5 [facility] Comment on above: Performed By: #### Amanda WILKINSON, BMP #### [facility] ([id number]) [address], [address] [place] [address] Lymphocytes (Bld) [#/Vol] 1.6 10*3/uL Normal 1.0-3.5 [facility] Comment on above: Performed By: #### C MINH, BMP #### [facility] ([id number]) [address], [address] [place] [address] Lymphocytes/100 WBC (Bld) 49.0 % Normal [facility] Comment on above: Performed By: #### C MINH, BMP #### [facility] ([id number]) [address], [address] [place] [address] MCH (RBC) [Entitic mass] 39.9 pg High 27-34 [facility] Comment on above: Performed By: #### Amanda WILKINSON, BMP #### [facility] ([id number]) [address], [address] [place] [address] MCHC (RBC) [Mass/Vol] 33.5 g/dL Normal 32-36 [facility] Comment on above: Performed By: #### C MINH, BMP #### [facility] ([id number]) [address] [address] [place] [address] MCV (RBC) [Entitic vol] 119 fL High 80-100 [facility] Comment on above: Performed By: #### C MINH, BMP #### [facility] ([id number]) [address], [address] [place] [address] Monocytes (Bld) [#/Vol] 0.4 10*3/uL Normal 0-0.9 [facility] Comment on above: Performed By: #### Amanda WILKINSON, BMP #### [facility] ([id number]) [address], [address] [place] [address] Monocytes/100 WBC (Bld) 11.0 % Normal [facility] Comment on above: Performed By: #### Amanda WILKINSON, BMP #### [facility] ([id number]) [address], [address] [place] [address] Neutrophils (Bld) [#/Vol] 1.2 10*3/uL Low 1.5-6.6 [facility] Comment on above: Performed By: #### Amanda WILKINSON, BMP #### [facility] ([id number]) [address], [address] [place] [address] Platelet mean volume (Bld) [Entitic vol] 8.5 fL Normal 7-12 [facility] Comment on above: Performed By: #### C MINH, BMP #### [facility] ([id number]) [address] [address] [place] [address] Platelets (Bld) [#/Vol] 316 10*3/uL Normal 150-450 [facility] Comment on above: Performed By: #### Amanda WILKINSON, BMP #### [facility] ([id number]) [address] [address] [place] [address] RBC COUNT 3.24 X10E12/L Low 3.80-5.20 [facility] Comment on above: Performed By: #### Amanda WILKINSON, BMP #### [facility] ([id number]) [address], [address] [place] [address] RBC morphology finding Nom (Bld) NORMAL Normal [facility] Comment on above: Performed By: #### Amanda WILKINSON, BMP #### [facility] ([id number]) [address] [address] [place] [address] SEG NEUTROPHIL 39.0 % Normal [facility] Comment on above: Performed By: #### Amanda WILKINSON, BMP #### [facility] ([id number]) [address] [address] WBC (Bld) [#/Vol] 3.2 10*3/uL Low 4.0-11.0 [facility] Comment on above: Performed By: #### Amanda WILKINSON, BMP #### [facility] ([id number]) [address] [address] BLOOD CULTUREon 09-26-2023 Bacteria identified Aer cx Nom (Bld) CULTURE RESULTS NO SPECIMEN RECEIVED IN LABORATORY ACCOUNT CREDITED Normal [facility] Comment on above: Performed By: #### 1 7928-3 #### [facility] ([id number]) [address] [address] XR CHEST 2 VWSon 09-19-2023 XR CHEST [...] Xavier MD on 09/19/2023 2:40 PM Normal [facility] URINALYSISon 07-25-2023 Bilirubin Ql (U) Negative Normal NEG [facility] Comment on above: Performed By: #### U A #### [facility] ([id number]) [address] [place] [address] BLOOD/HGB Large Abnormal NEG [facility] Comment on above: Performed By: #### U A #### [facility] ([id number]) [address] [place] [address] CA OXALATE CRYSTALS PRESENT Abnormal NONE [facility] Comment on above: Performed By: #### U A #### [facility] ([id number]) [address] [place] [address] Color (U) YELLOW Normal YELLOW [facility] Comment on above: Performed By: #### U A #### [facility] ([id number]) [address] [place] [address] Glucose Ql (U) Negative Normal NEG [facility] Comment on above: Performed By: #### U A #### [facility] ([id number]) [address] [place] [address] Ketones Ql (U) Negative Normal NEG [facility] Comment on above: Performed By: #### U A #### [facility] ([id number]) [address] [place] [address] 17561 Leukocyte esterase Test strip Ql (U) SMALL Abnormal NEG [facility] Comment on above: Performed By: #### U A #### [facility] ([id number]) [address] [place] [address]44[address] Nitrite Ql (U) Positive Abnormal NEG [facility] Comment on above: Performed By: #### U A #### [facility] ([id number]) [address] [place] [address] 99[address] pH (U) 6.0 [pH] Normal 5.0-8.5 [facility] Comment on above: Performed By: #### U A #### [facility] ([id number]) [address] [place] [address] 487[address] Protein Ql (U) Negative Normal NEG [facility] Comment on above: Performed By: #### U A #### [facility] ([id number]) [address] [place] [address] 047[address] R.B.CELLS 10 /hpf High 0-5 [facility] Comment on above: Performed By: #### U A #### [facility] ([id number]) [address] [place] [address] Specific gravity (U) [Rel density] 1.025 Normal 1.003-1.03 5 [facility] Comment on above: Performed By: #### U A #### [facility] ([id number]) [address] [place] [address] SQUAMOUS EPITHELIUM 10 /hpf High 0-5 [facility] Comment on above: Performed By: #### U A #### [facility] ([id number]) [address] [place] [address] TURBIDITY HAZY Abnormal CLEAR [facility] Comment on above: Performed By: #### U A #### [facility] ([id number]) [address] [place] [address]10[address] Urobilinogen Qn (U) 0.2 {Tra'U}/dL Normal <1.1 [facility] Comment on above: Performed By: #### U A #### [facility] ([id number]) [address] [place] [address] W.B.CELLS 31 /hpf High 0-5 [facility] Comment on above: Performed By: #### U A #### [facility] ([id number]) [address] [place] [address] URINE CULTUREon 07-25-2023 Bacteria identified Cx Nom [...] <=1 F TRIMETH/SULFAMETHOXAZOLE S <=1/19 F Susceptible [facility] Comment on above: Performed By: #### 6 30-4 #### [facility] ([id number]) [address] [facility], [address] [place] [address] CT BRAIN WO CONTon 4 CT BRAIN WO CONT CT BRAIN WO CONT CLINICAL INFORMATION: Cerebrovascular accident (CVA), unspecified mechanism ([facility]) TECHNIQUE: CT BRAIN WO CONT CT images [...] Richards MD on 06/10/2023 3:07 PM Normal [facility] CALCIUMon 08-02-2022 Calcium [Mass/Vol] 9.2 mg/dL Normal 8.5-10.[address] [facility] Comment on above: Performed By: #### C Lilian, CREA #### [facility] [address] [address] [address] Carmelina Sarah CREATININEon 08-02-2022 Creatinine [Mass/Vol] 0.88 mg/dL Normal 0.55-1.02 [facility] Comment on above: Performed By: #### C Lilian, CREA ####[facility] [address] [address]Dr. Carmelina Sarah EGFR-AF MOSOTHO >60 Normal >=60 [facility] Comment on above: Performed By: #### C Lilian, CREA ####[facility] [address] [address]Dr. Carmelina Sarah EGFR-NON AF MOSOTHO >60 Normal >=60 [facility] Comment on above: Performed By: #### C Lilian, CREA ####[facility] [address] [address]Dr. Carmelina Sarah MG MAMM SCREEN 3D CONCEPCIÓN CADon 03-24-2022 MG MAMM SCREEN 3D CONCEPCIÓN CAD Patient: ANGELIQUE MELO Exam Date: 03/24/2022 : 1965 Gender:F Ordering : DR RAMA THOMASON . Admission #: [id number] Family : Order #: [id number] CLICK HERE TO VIEW EXAM RADIOLOGY REPORT [...] lymphoma cancer at age 44. LOCATION: [facility] BREAST COMPOSITION: Scattered areas fibroglandular density. [...] Frances Quezada MD on 03/25/2022 at 08:12 [facility] XR DEXA BONE DENSITYon 03-24 XR DEXA BONE DENSITY DEXA Bone Density Study CLINICAL: Evaluate bone mineral density. Postmenopausal COMPARISON: None FINDINGS: The bone density study was assessed by dual-energy x-ray absorptiometry with the doggyloot scanner. The test results are expressed in [...] FRANCES NICHOLS Date: 2022-03-24 09:29 Normal [facility] CBC AUTO DIFFon 02-22-2022 BASO # 0.3 103/ul Critically high 0.0-0.1 [facility] Comment on above: Performed By: #### C BC ####[facility] [address] [id number]. Carmelina Sarah Basophils/100 WBC (Bld) 3.0 % Critically high 0.2-2.[address] [facility] Comment on above: Performed By: #### C BC ####[facility] [address] [address]Dr. Candelan Sarah EO # 0.3 103/ul Normal 0.0-0.[address] [facility] Comment on above: Performed By: #### C BC ####[facility] [address] [address]Dr. Carmelina Sarah Eosinophils/100 WBC (Bld) 3.1 % Normal 0.9-7.[address] [facility] Comment on above: Performed By: #### C BC ####[facility] [address] [address]Dr. Carmelina Sarah Erythrocyte distribution width (RBC) [Ratio] 15.8 % Critically high 11.0-15.0 [facility] Comment on above: Performed By: #### C BC ####[facility] [address] [place], [place] [address]Dr. Carmelina Sarah Hematocrit (Bld) [Volume fraction] 48.5 % Critically high 36.0-48.0 [facility] Comment on above: Performed By: #### C BC ####[facility] [address] [place], [place] [address]Dr. Carmelina Sarah Hemoglobin (Bld) [Mass/Vol] 15.6 g/dL Normal 12.0-16.0 [facility] Comment on above: Performed By: #### C BC ####[facility] [address] [place], [place] [address]Dr. Carmelina Sarah IG # 0.05 10e3/ul Critically high 0.00-0.03 [facility] Comment on above: Performed By: #### C BC ####[facility] [address] [place], [place] [address]Dr. Carmelina Sarah IG % 0.5 % Normal 0.0-0.5 [facility] Comment on above: Performed By: #### C BC ####[facility] [address] [place], [place] [address]Dr. Carmelina Sarah LYMPH # 3.2 103/ul Normal 1.2-3.[address] [facility] Comment on above: Performed By: #### C BC ####[facility] [address] [place], [place] [address]Dr. Carmelina Sarah Lymphocytes/100 WBC (Bld) 33.4 % Normal 20.5-60.0 [facility] Comment on above: Performed By: #### C BC ####[facility] [address] [place], [place] [address]Dr. Carmelina Sarah MANUAL DIFF REQ NO Normal [facility] Comment on above: Performed By: #### C BC ####[facility] [address] [id number]. Carmelina Sarah MCH (RBC) [Entitic mass] 28.3 pg Normal 26.7-34.[address] [facility] Comment on above: Performed By: #### C BC ####[facility] [address] [address]Dr. Carmelina Sarah MCHC (RBC) [Mass/Vol] 32.2 g/dL Normal 29.9-35.[address] [facility] Comment on above: Performed By: #### C BC ####[facility] [address] [address]Dr. Carmelina Tyrel MCV (RBC) [Entitic vol] 88.0 fL Normal 81.0-99.[address] [facility] Comment on above: Performed By: #### C BC ####[facility] [id number] [place], [place] [address]Dr. Carmelina Sarah MONO # 0.7 103/ul Normal 0.3-0.[address] [facility] Comment on above: Performed By: #### C BC ####[facility] [id number] [place], [place] [address]Dr. Candemargarita Sarah Monocytes/100 WBC (Bld) 7.7 % Normal 1.7-12.[address] [facility] Comment on above: Performed By: #### C BC ####[facility] C[address] [place], [place] [address]Dr. Carmelina Sarah NEUT # 5.0 103/ul Normal 1.4-6.[address] [facility] Comment on above: Performed By: #### C BC ####[facility] W[address] [place], [place] [address]Dr. Carmelina Sarah Neutrophils/100 WBC (Bld) 52.3 % Normal 43.0-75.[address] [facility] Comment on above: Performed By: #### C BC ####[facility] [address] [place], [place] [address]Dr. Carmelina Sarah Platelet mean volume (Bld) [Entitic vol] 10.8 fL Normal 9.5-13.[address] [facility] Comment on above: Performed By: #### C BC ####[facility] [address] [place], [place] [address]Uj. Carmelina Sarah PLT 765 103/ul Critically high 150-450 [facility] Comment on above: Performed By: #### C BC ####[facility] [address] [place], [place] [address]Kd. Carmelina Sarah RBC 5.51 106/ul Critically high 4.20-5.40 [facility] Comment on above: Performed By: #### C BC ####[facility] [address] [place], [place] [address]Ex. Carmelina Sarah WBC 9.6 103/ul Normal 4.0-11.0 [facility] Comment on above: Performed By: #### C BC ####[facility] [address] [place], [place] [address]Jb. Carmelina Sarah FREE T3on 02-22-2022 FREE T3 3.14 pg/mlL Normal 2.18-3.98 [facility] Comment on above: Performed By: #### F T3, TSH, T4, LIPID, CMP #### [facility] [address] [address] [address] Carmelina Sarah GLYCOHEMOGLOBIN A1Con 2021 ADA RECOMMENDATION SEE BELOW Normal [facility] Comment on above: Result Comment: ADA RECOMMENDED LIMIT 4.0 - 6.0 ADA THERAPEUTIC TARGET < 7.0 ACTION SUGGESTED > 7.0 Performed By: #### A 1C #### [facility] [address] [address] [address] Carmelina Sarah Glucose [Mass/Vol] 108 mg/dL Normal [facility] Comment on above: Performed By: #### A 1C #### [facility] [address] [address] [address] Carmelina Sarah HbA1c (Bld) [Mass fraction] 5.4 % Normal 4.5-6.2 [facility] Comment on above: Performed By: #### A 1C #### [facility] [address] [address] [address] Carmelina Sarah LIPID PROFILEon 02-22-2022 CHOL-HDL RATIO NORM SEE BELOW Normal [facility] Comment on above: Result Comment: 3.3 - 4.4 LOW RISK 4.4 - 7.1 AVERAGE RISK 7.1 - 11.0 MODERATE RISK >11.0 HIGH RISK Performed By: #### F T3, TSH, T4, LIPID, CMP #### [facility] [address] [place] [address] Dr. Carmelina Sarah Cholesterol [Mass/Vol] 158 mg/dL Normal <=[address] [facility] Comment on above: Performed By: #### F T3, TSH, T4, LIPID, CMP #### [facility] [address] [place] [address] Dr. Carmelina Sarah Cholesterol in HDL [Mass/Vol] 62 mg/dL Critically high 40-60 [facility] Comment on above: Performed By: #### F T3, TSH, T4, LIPID, CMP #### [facility] [address] [place] [address] Dr. Carmelina Sarah Cholesterol in LDL [Mass/Vol] 81.2 mg/dL Normal [facility] Comment on above: Performed By: #### F T3, TSH, T4, LIPID, CMP #### [facility] [address] [place] [address] Dr. Carmelina Sarah Cholesterol.total/ Cholesterol in HDL [Mass ratio] 2.5 {ratio} Normal [facility] Comment on above: Performed By: #### F T3, TSH, T4, LIPID, CMP #### [facility] [address] [place] [address] Dr. Carmelina Sarah HDL NORMAL > or = 60 mg/dl - LO W CARDIOVASCULAR RISK <40 mg/dl - HIGH CARDIOVASCULAR RISK Normal [facility] Comment on above: Performed By: #### F T3, TSH, T4, LIPID, CMP #### [facility] [address] [place] [address] Dr. Carmelina Sarah LDL CALC NORMAL SEE BELOW Normal [facility] Comment on above: Result Comment: <100 mg/dl OPTIMAL 100 - 129 mg/dl NEAR OR ABOVE OPTIMAL 130 - 159 mg/dl BORDERLINE HIGH 160 - 189 mg/dl HIGH >190 mg/dl VERY HIGH Performed By: #### F T3, TSH, T4, LIPID, CMP #### [facility] [address] [address] [address] Carmelina Sarah Triglyceride [Mass/Vol] 74 mg/dL Normal <=150 [facility] Comment on above: Performed By: #### F T3, TSH, T4, LIPID, CMP #### [facility] [address] [address] [address] Carmelina Sarah VLDL CALC 14.8 mg/dL Normal [facility] Comment on above: Performed By: #### F T3, TSH, T4, LIPID, CMP #### [facility] [address] [address] [address] Carmelina Sarah PROF 14(COMP METB)on 022 Albumin [Mass/Vol] 3.8 g/dL Normal 3.4-5.[address] [facility] Comment on above: Performed By: #### F T3, TSH, T4, LIPID, CMP #### [facility] [address] [address] [address] Carmelina Sarah Albumin/Globulin [Mass ratio] 1.0 {ratio} Normal [facility] Comment on above: Performed By: #### F T3, TSH, T4, LIPID, CMP #### [facility] [address] [place] [address] Dr. Carmelina Sarah ALP [Catalytic activity/Vol] 102 U/L Normal 46-116 [facility] Comment on above: Performed By: #### F T3, TSH, T4, LIPID, CMP #### [facility] [address] [place] [address] Dr. Carmelina Sarah ALT [Catalytic activity/Vol] 22 U/L Normal 14-59 [facility] Comment on above: Performed By: #### F T3, TSH, T4, LIPID, CMP #### [facility] [address] [place] [address] Dr. Carmelina Sarah Anion gap [Moles/Vol] 11.1 mmol/L Normal [facility] Comment on above: Performed By: #### F T3, TSH, T4, LIPID, CMP #### [facility] [address] [place] [address] Dr. Carmelina Sarah AST [Catalytic activity/Vol] 21 U/L Normal 15-37 [facility] Comment on above: Performed By: #### F T3, TSH, T4, LIPID, CMP #### [facility] [address] [place] [address] Dr. Carmelina Sarah Bilirubin [Mass/Vol] 0.5 mg/dL Normal 0.2-1.0 [facility] Comment on above: Performed By: #### F T3, TSH, T4, LIPID, CMP #### [facility] [address] [address] [address] Carmelina Sarah Calcium [Mass/Vol] 9.2 mg/dL Normal 8.5-10.[address] [facility] Comment on above: Performed By: #### F T3, TSH, T4, LIPID, CMP #### [facility] [address] [place] [address] Dr. Carmelina Sarah Chloride [Moles/Vol] 104 mmol/L Normal 98-[address] [facility] Comment on above: Performed By: #### F T3, TSH, T4, LIPID, CMP #### [facility] [address] [place] [address] Dr. Carmelina Sarah CO2 [Moles/Vol] 27.6 mmol/L Normal 21.0-32.0 [facility] Comment on above: Performed By: #### F T3, TSH, T4, LIPID, CMP #### [facility] [address] [place] [address] Dr. Carmelina Sarah Creatinine [Mass/Vol] 0.93 mg/dL Normal 0.55-1.02 [facility] Comment on above: Performed By: #### F T3, TSH, T4, LIPID, CMP #### [facility] [address] [place] [address] Dr. Carmelina Sarah EGFR-AF MOSOTHO >60 Normal >=60 [facility] Comment on above: Performed By: #### F T3, TSH, T4, LIPID, CMP #### [facility] [address] [place] [address] Dr. Carmelina Sarah EGFR-NON AF MOSOTHO >60 Normal >=60 [facility] Comment on above: Performed By: #### F T3, TSH, T4, LIPID, CMP #### [facility] [address] [place] [address] Dr. Carmelina Sarah Globulin (S) [Mass/Vol] 3.7 g/dL Normal [facility] Comment on above: Performed By: #### F T3, TSH, T4, LIPID, CMP #### [facility] [address] [place] [address] Dr. Carmelina Sarah Glucose [Mass/Vol] 90 mg/dL Normal 74-106 [facility] Comment on above: Performed By: #### F T3, TSH, T4, LIPID, CMP #### [facility] [address] [place] [address] Dr. Carmelina Sarah Potassium [Moles/Vol] 3.7 mmol/L Normal 3.5-5.1 [facility] Comment on above: Performed By: #### F T3, TSH, T4, LIPID, CMP #### [facility] [address] [place] [address] Dr. Carmelina Sarah Protein [Mass/Vol] 7.5 g/dL Normal 6.4-8.2 [facility] Comment on above: Performed By: #### F T3, TSH, T4, LIPID, CMP #### [facility] [address] [place] [address] Dr. Carmelina Sarah Sodium [Moles/Vol] 139 mmol/L Normal 136-145 [facility] Comment on above: Performed By: #### F T3, TSH, T4, LIPID, CMP #### [facility] [address] [place] [address] Dr. Carmelina Sarah Urea nitrogen [Mass/Vol] 19.0 mg/dL Critically high 7.0-18.0 [facility] Comment on above: Performed By: #### F T3, TSH, T4, LIPID, CMP #### [facility] [address] [place] [address] Dr. Carmelina Sarah Urea nitrogen/Creatinin e [Mass ratio] 20.4 mg/mg Normal [facility] Comment on above: Performed By: #### F T3, TSH, T4, LIPID, CMP #### [facility] [address] [place] [address] Dr. Carmelina Sarah T4on 02-22-2022 T4 [Mass/Vol] 8.10 ug/dL Normal 4.80-13.90 [facility] Comment on above: Performed By: #### F T3, TSH, T4, LIPID, CMP #### [facility] [address] [place] [address] Dr. Carmelina Sarah TSHon 02-22-2022 TSH 0.985 uIU/mL Normal 0.358-3.[address] [facility] Comment on above: Performed By: #### F T3, TSH, T4, LIPID, CMP #### [facility] [address] [place] [address] Dr. Carmelina Sarah VITAMIN D 25 OHon 02-22-2022 VIT D 25-OH 51.9 ng/mL Normal [facility] Comment on above: Performed By: #### V ITAD #### [facility] [address] [place] [address] Dr. Carmelina Sarah VIT D RANGES SEE BELOW Normal [facility] Comment on above: Result Comment: <20 ng/mL Vit D deficient 20 - <30 ng/mL Vit D insufficient 30 - 100 ng/mL Vit D sufficient >100 ng/mL Potential Toxicity Performed By: #### V ITAD #### [facility] [address] [place] [address] Dr. Carmelina Sarah COVID Quick Testingon 2020 Result Negative [employer] Other COVID-19 Positive/Negativeon 06-09-2020 COVID-19 Positive/Negative Negative Negative [facility] Comment on above: Reference: NegativeT esting for SARS-CoV-2 by RT-PCRThis test was developed and its performance characteristics determined by [employer] ([employer]) and validated at the [facility]. This test has not been FDA [...] Otheron 06-09-2020 Coronavirus 2019 PCR Interp N/A [facility] Automated basophil %on 06-06 Basophils/100 WBC (Bld) 2.9 % [facility] Automated basophil counton 0 06-06-2020 Basophils (Bld) [#/Vol] 0.3 10*3/uL 0.0-0.2 [facility] Automated blood lymphocyte c ount (number/volume)on 06-06-2020 Lymphocytes (Bld) [#/Vol] 2.4 10*3/uL 1.00-4.8 [facility] Automated blood lymphocyte c ount as percentage of total leukocyteson 06-06-2020 Lymphocytes/100 WBC (Bld) 26.6 % [facility] Automated blood monocyte cou nton 06-06-2020 Monocytes (Bld) [#/Vol] 1.0 10*3/uL 0.0-0.8 [facility] Automated blood platelet cou nt (count/volume)on 06-06-2020 Platelets (Bld) [#/Vol] 527 10*3/uL 150-450 [facility] Automated blood platelet joi n volume measurementon 06-06-2020 Platelet mean volume (Bld) [Entitic vol] 9.6 fL 6.3-10.7 [facility] Automated eosinophil %on Eosinophils/100 WBC (Bld) 4.8 % [facility] Automated eosinophil counton 06-06-2020 Eosinophils (Bld) [#/Vol] 0.4 10*3/uL 0.0-0.45 [facility] Automated erythrocyte distri bution width ratioon 06-06-2020 Erythrocyte distribution width (RBC) [Ratio] 15.8 % 11.9-15.3 [facility] Automated erythrocyte mean c orpuscular hemoglobin (mass per erythrocyte)on 06-06-2020 MCH (RBC) [Entitic mass] 28.7 pg 24.7-34.3 [facility] Automated erythrocyte mean c orpuscular hemoglobin concentration measurement (mass/volon 06-06-2020 MCHC (RBC) [Mass/Vol] 33.4 g/dL 32.0-35.0 [facility] Automated erythrocyte mean c orpuscular volumeon 06-06-2020 MCV (RBC) [Entitic vol] 85.9 fL 80-100 [facility] Automated monocyte %on 06-06 Monocytes/100 WBC (Bld) 10.9 % [facility] Automated neutrophil %on Neutrophils/100 WBC (Bld) 54.8 % [facility] Blood erythrocytes automated count (number/volume)on 06-06-2020 RBC (Bld) [#/Vol] 5.10 10*6/uL 3.60-5.00 [facility] Blood hemoglobin measurement (mass/volume)on 06-06-2020 Hemoglobin (Bld) [Mass/Vol] 14.7 g/dL 11.8-15.4 [facility] Blood leukocytes automated c ount (number/volume)on 06-06-2020 WBC (Bld) [#/Vol] 9.0 10*3/uL 4.5-11.0 [facility] Blood neutrophil count by au tomated method (number/volume)on 06-06-2020 Neutrophils (Bld) [#/Vol] 4.9 10*3/uL 1.8-7.7 [facility] Body fluid albumin measureme nt (mass/volume)on 06-06-2020 Albumin (Body fld) [Mass/Vol] 4.0 g/dL 3.2-5.5 [facility] Estimated glomerular filtrat ion rate (GFR) non- Americanon 06-06-2020 GFR/1.73 sq M predicted among non-blacks MDRD (S/P/Bld) [Vol rate/Area] 59 mL/min/{1.73_m2} [facility] Hematocrit [Volume Fraction] of Blood by Automated counton 06-06-2020 Hematocrit (Bld) [Volume fraction] 43.8 % 34.0-46.4 [facility] Otheron 06-06-2020 GFR/1.73 sq M.predicted MDRD (S/P/Bld) [Vol rate/Area] mL/min/{1.73_m2} [facility] Comment on above: GFR estimated refere nce range: According to KDOQI guidelines, <60 ml/min/1.73m2 is sufficient to diagnose a patient with chronic kidney disease. Nucleated RBC/100 WBC (Bld) [Ratio] 0.0 % 0-0.5 [facility] Creatinine Clearance (Chem N/A [facility] Protein [Mass/volume] in Ser um or Plasmaon 06-06-2020 Protein [Mass/Vol] 6.5 g/dL 6.1-7.9 [facility] Serum globulin measurement b y calculation (mass/volume)on 06-06-2020 Globulin (S) [Mass/Vol] 2.5 g/dL [facility] Serum or plasma alanine berry otransferase measurement without P-5'-P (enzymatic activion 06-06-2020 ALT No additional P-5'-P [Catalytic activity/Vol] 22 U/L 10-60 [facility] Serum or plasma albumin/glob ulin mass ratioon 06-06-2020 Albumin/Globulin [Mass ratio] 1.6 {ratio} [facility] Serum or plasma alkaline anju sphatase measurement (enzymatic activity/volume)on 06-06-2020 ALP [Catalytic activity/Vol] 107 U/L 32-92 [facility] Serum or plasma aspartate am inotransferase measurement (enzymatic activity/volume)on 06-06-2020 AST [Catalytic activity/Vol] 23 U/L 10-42 [facility] Serum or plasma calcium sammi urement (mass/volume)on 06-06-2020 Calcium [Mass/Vol] 9.7 mg/dL 8.2-10.2 [facility] Serum or plasma chloride joi surement (moles/volume)on 06-06-2020 Chloride [Moles/Vol] 101 mmol/L 95-114 [facility] Serum or plasma creatinine m easurement with calculation of estimated glomerular filtron 06-06-2020 Creatinine [Mass/Vol] 0.97 mg/dL 0.44-1.03 [facility] Serum or plasma glucose sammi urement (mass/volume)on 06-06-2020 Glucose [Mass/Vol] 80 mg/dL 70-100 [facility] Comment on above: ADA recommended refe rence rangeRandom Glucose Reference Range is dependent on time and content of last meal. Glucose of more than 200 mg/dL in a nonstressed, ambulatory subject supports the diagnosis of Diabetes Mellitus. Serum or plasma potassium me asurement (moles/volume)on 06-06-2020 Potassium [Moles/Vol] 5.1 mmol/L 3.5-5.1 [facility] Serum or plasma sodium measu rement (moles/volume)on 06-06-2020 Sodium [Moles/Vol] 136 mmol/L 136-146 [facility] Serum or plasma total biliru bin measurement (mass/volume)on 06-06-2020 Bilirubin [Mass/Vol] 0.7 mg/dL 0.3-1.2 [facility] Serum or plasma total carbon dioxide measurement (moles/volume)on 06-06-2020 CO2 [Moles/Vol] 25.1 mmol/L 22.0-30.0 [facility] Serum or plasma urea nitroge n measurement (mass/volume)on 06-06-2020 Urea nitrogen [Mass/Vol] 15 mg/dL 9-23 [facility] MRI KNEE RIGHT WO CONTRASTon 05-09-2020 MRI [...] by: Rogerio Mathis 05/09/20 Final result Normal [facility] tear of the posterior horn of the medial meniscus. Horizontal tear of the posterior horn and body of the lateral meniscus. [facility] Work Phone: EXAMINATION: MRI OF THE RIGHT [...] fracture, dislocation or avascular necrosis is seen. [employer] Phone: Tiago, Mhpn Incoming R adiant Results From [employer] - 05/09/2020 9:03 PM EST EXAMINATION: MRI [...] horn and body of the lateral meniscus. [employer] Phone: Coding Summary.on 03-29-2018 Coding Summary. CODING DATE: 019 FINAL [facility] STATUS: Home (Routine DC) PAYOR: [facility] DESCRIPTION 5312 Level 2 Lower GI Procedures ADMIT DX: REASON FOR VISIT DX: R19.5 Other fecal abnormalities FINAL DX: PRINCIPAL: D12.5 Benign neoplasm of sigmoid colon SECONDARY: E78.00 Pure hypercholesterolemia, unspecified F32.9 Major depressive disorder, single episode, unspecified F17.200 Nicotine dependence, unspecified, uncomplicated PYMT PROC APC STAT DESCRIPTION DOCTOR NAME DATE 34005 3197 T Colonoscopy, flexible; Malik DESOUZA MD 03/20/2018 with removal of tumor(s), polyp(s), or other lesion(s) by snare technique 88150 Anesthesia for lower Ben Deal JR, DO [...] Revised Date Saved: 03/29/2018 03:45 pm Normal [facility] Main OR Intraoperative Recor don 03-22-2018 Main OR Intraoperative Record IntraOp Document Type FT Summary Primary Physician: Malik DESOUZA MD Finalized Date/Time: 03/22/18 14:43:28 Pt. Name: ANGELIQUE MELO/Sex: 1965 Female Med Rec #: [id number] Physician: Malik DESOUZA MD Financial #: [id number] Pt. Type: O Room/Bed: / Admit/Disch: 03/20/18 [...] to review and send charges Sixto Sellers CST Case Attendance FT Entry 1 Entry 2 Entry 3 Case Attendee Elma Duffy MD, Malik Bautista RN, Zelda Role Performed Anesthesiologist Surgeon - Primary Thermocouple Tester - Primary Tape Deck Installer Time In 03/20/18 09:05:00 03/20/18 09:05:00 03/20/18 09:05:00 Time Out 03/20/18 09:29:00 03/20/18 09:29:00 03/20/18 09:29:00 Procedure COLONOSCOPY(.) COLONOSCOPY(.) COLONOSCOPY(.) Comments supervising Last Modified By: Michele RN, Zelda Bautista RN, Zelda Bautista RN, Zelda 03/20/18 09:29:46 03/20/18 09:29:46 03/20/18 09:29:46 Entry 4 Entry 5 Case Attendee Samara Blancoernathy restorgenex corpWinnie Role Performed Scrub - Other Scrub - [...] No Time Out Elma Duffy, Given Participants WILMER HAWKINS, Michele Marsh RN, Zelda [place] Server, Winnie Patel Time Out Complete 03/20/18 09:07:00 Outcomes Met? [...] colon polypectomy. Primary Procedure Yes Primary Surgeon Malik DESOUZA MD 03/20/18 09:09:00 Stop 03/20/18 09:24:00 Anesthesia Type [...] and tissue Entry 1 Skin Integrity Intact, Saline, Warm, and Skin Abnormality No Dry Outcomes [...] injury caused by extraneous objects Transport To OR FT Pre-Care Text: Transports according to individual needs. [...] injury related to transfer/transport Departure From OR FT Pre-Care Text: Transports according to individual needs. Evaluates for signs and symptoms of skin and tissue injury as a result of transfer or transport. Entry 1 Via Cart Safety Precautions Safety Strap, Side Rails Up PostOp Destination PACU Transported By Zelda Bautista RN Patient Status Stable Skin. Condition Intact, Saline, Warm, and Dry Airway Maintenance Oxygen in Use? No Airway Device N/A Outcomes Met? Yes Last Modified By: Zelda Bautista RN 03/20/18 06:49:43 Post-Care Text: The patient is free from signs and symptoms of injury related to transfer/transport General Comments: REPORT GIVEN TO PARAMEDIC SUPERVISOR / AW cracker sprayer Administration FT Pre-Care Text: Verifies allergies, administers prescribed medications and solutions, administers prescribed antibiotic therapy and immunizing agents as ordered, evaluates response to medications Administers prescribed medications and solutions Entry 1 Expiration Date Yes Outcomes Met? Yes Verified Last Modified By: Zelda Bautista RN 03/20/18 06:49:20 Post-Care Text: The patient received appropriate medication(s) safely administered during the perioperative period For Ragland-Bernardo please see scanned medication reconcilliation form for [...] 03/20/18 09:30 Lisseth Sellers CST 03/22/18 14:43 [facility] Inpatient Patient Summaryon 03-20-2018 [facility]patient [facility] Instructions[facility]ERSON INFORMATION Name: ANGELIQUE MELO PHYSICIANS Admitting Physician: Malik DESOUZA MD Physician: Malik DESOUZA MD PCP: Cruzito Thomason MD Diagnosis: Colon polyp Comment: PATIENT EDUCATION INFORMATIONInstructions:Colon oscopy, Care After Surgery Salam (CUSTOM); Colon PolypsMedication Leaflets:Follow up:With: Address: When: Malik DESOUZA [place] [facility] [id number] [facility] ([employer] Within 5 to 7 days Comments: Call for any problems. Call for followup appointment MEDICATION LISTComment: [facility] Main OR PACU I Recordon 02-26 Main OR PACU I Record PACU Phase I Document Type FT Summary Primary Physician: Malik DESOUZA MD Finalized Date/Time: 03/20/18 10:19:08 Pt. Name: MELOANGELIQUE D.O.B./Sex: 1965 Female Med Rec #: [id number] Physician: Malik DESOUZA MD Financial #: [id number] Pt. Type: O Room/Bed: / Admit/Disch: 03/20/18 [...] By: Katerin Joe RN 03/20/18 10:19 Normal [facility] Main OR Preoperative Recordo n 03-20-2018 Main OR Preoperative Record Holding Area Document Type FT Summary Primary Physician: Malik DESOUZA MD Finalized Date/Time: 03/20/18 08:17:50 Pt. Name: ANGELIQUE MELO Bernie/Sex: 1965 Female Med Rec #: [id number] Physician: Malik DESOUZA MD Financial #: [id number] Pt. Type: O Room/Bed: / Admit/Disch: 03/20/18 [...] By: Zelda Bautista RN 03/20/18 08:17 Normal [facility] Operative Reporton 8 Operative Report Date of Surgery: 03/20/2018SURGEON: Malik Desouza M.D.PREOPERATIVE DIAGNOSIS: Positive Cologuard, need for [...] [facility] well [facility]Malik Desouza M.D.lkrDictated: 03/20/2018 #[id number]: 03/20/2018 #[id number]: Linda Puga M.D. [facility] Comment on above: Result Comment: Elec tronically Signed By: Malik DESOUZA MD.br\Date and Time Signed: 03/20/18 10:23 EST Patient [...] 06/05/2012 Document Reviewed: 05/23/2012ExitCare? Patient Information ?2014 [employer]. This information is not intended to replace advice given to you by your health care provider. Make sure you discuss any questions you have with your health care provider. [facility] [facility]Physicianon Protein mass conc Patient: NADER MELO Age: 52 years Sex: Female : 1965 Associated Diagnoses: None Author: Liben JR DO, Ben J Postoperative Information Post Operative Note: Post Anesthesia [...] All ProblemsResolved: Polyp colon / SNOMED CT [id number] Physical Examination Intake and Output Denies significant [...] pain . Respiratory: Adequate air exchange with anglican of preoperative function.. Cardiovascular: Cardiovascular function is stable and has returned to preoperative levels.. Neurologic: Pt has returned to preoperative baseline.. Review / Management Condition: Stable. Assessment Anesthetic outcome No anesthetic complications noted. Plan Transfer/ Discharge: Patient can be discharged from PACU when criteria met. Condition good. Normal [facility] Comment on above: Result Comment: Elec tronically Signed By: Ben Deal JR, DO\Date and Time Signed: 03/20/18 10:21 EST Protein [...] hrs) Last Charted SBP 131 mmHg (MAR 20 08:17)DBP 85 mmHg (MAR 20 08:17)SpO2 97 % (MAR 20:17)Height 177.8 cm (MAR 20:08)Weight 105.2 kg (DEC 24 08:08)BMI 33.28 kg/m2 (MAR 20:) Airway: Normal oral/pharyngeal anatomy.. Respiratory: Adequate air exchange.. Cardiovascular: Adequate perfusion and function. Review / Management Results review: No qualifying data available. Plan [place] [employer] Anesthesiologists (ASA) physical status classification: Class II. Anesthetic Preoperative Plan Anesthesia: Monitored anesthesia care and general anesthesia if required.. Anesthetic plan, risks, benefits, and alternatives discussed with the patient and/or family. Pt. and/or family present and agree to proceed as planned.. Discussed the importance of abstaining from tobacco products, and offered counseling if desired.. Normal [facility] Comment on above: Result Comment: Elec tronically Signed By: Ben Deal JR, DO.br\Date and Time Signed: 03/20/18 08:25 EST Vital Signs Date Time Vital Sign Value Performing Clinician Facility 12-29-2020 10:15-0400 Body height 177.8 cm Chhaya Pinoault Other [employer] Other 12-29-2020 10:15-0400 Body mass index (BMI) [Ratio] 31.56 kg/m2 Chhaya Pinoault Other [employer] Other 12-29-2020 10:15-0400 Body temperature 98.2 [degF] Chhaya Pinoault Other [employer] Other 12-29-2020 10:15-0400 Body weight 99.79 kg Chhaya Pinoault Other [employer] Other 12-29-2020 10:15-0400 SaO2% (BldA) [Mass fraction] 97 % Chhaya Pinoault Other [employer] Other Encounters Encounter Date Encounter Type Care Provider Facility Start: 02-03-2024 End: 02-03-2024 ambulatory Ena Tran Facility:[facility] Start: 12-12-2023 End: 12-12-2023 ambulatory [facility] Start: 12-09-2023 End: 12-09-2023 ambulatory [facility] Start: 12-02-2023 End: 12-02-2023 ambulatory [facility] Start: 11-22-2023 End: 11-22-2023 ambulatory [facility] Start: 11-14-2023 End: 11-14-2023 ambulatory [facility] Start: 11-02-2023 End: 11-02-2023 ambulatory [facility] Start: 10-25-2023 ambulatory [facility] Start: 10-13-2023 End: 10-13-2023 Evaluation and management of inpatient [facility] Start: 10-10-2023 End: 10-12-2023 Evaluation and management of inpatient [facility] Start: 10-05-2023 End: 10-05-2023 ambulatory [facility] Start: 10-02-2023 End: 10-02-2023 ambulatory [facility] Start: 09-30-2023 End: 09-30-2023 ambulatory [facility] Start: 09-26-2023 End: 09-26-2023 ambulatory [facility] Start: 09-26-2023 Encounter for other preprocedural examination [facility] Start: 09-19-2023 End: 09-19-2023 ambulatory [facility] Start: 08-25-2023 End: 08-25-2023 ambulatory [facility] Start: 07-25-2023 End: 07-25-2023 ambulatory KARLESTEFANIA Romo МАРИЯ [facility] Start: 07-25-2023 Encounter for other preprocedural examination [facility] Start: 07-21-2023 End: 07-21-2023 ambulatory RAMA THOMASON [facility] Start: 07-07-2023 End: 07-07-2023 ambulatory SEBAS GILL [facility] Start: 06-10-2023 End: 06-10-2023 ambulatory [facility] Start: 05-23-2023 Orders Only Valentin Velarde MD Work Phone: [facility] Start: 04-21-2023 End: 04-21-2023 ambulatory RAMA THOMASON [facility] Start: 03-02-2023 Telephone encounter Татьяна Osborn [facility] Comment on above: Post-op Craniotomy Start: 08-02-2022 End: 08-02-[address] RAMA THOMASON . Facility:[facility] Start: 03-26-2022 Encounter for genera l adult medical examination without abnormal findings DR RAMA THOMASON . [facility] Start: 03-24-2022 End: 03-25-[address] RAMA THOMASON . Facility:[facility] Start: 03-24-2022 End: 03-25-2022 Encounter for general adult medical examination without abnormal findings DR RAMA THOMASON . Facility:[facility] Start: 02-22-2022 End: 02-23-[address] RAMA THOMASON . Facility:[facility] Start: 12-29-2020 Office outpatient vi sit 15 minutes Chhaya Spivey [facility] Start: 06-09-2020 End: 06-09-2020 Patient encounter procedure Rama Thomason -Pre-Surgical Testing Start: 06-06-2020 End: 06-06-2020 Patient encounter procedure Rama Thomason -Pre-Surgical Testing Start: 05-08-2020 End: 05-11-2020 Patient encounter procedure RAMA THOMASON [facility] Start: 05-08-2020 End: 05-10-2020 Subsequent hospital visit by physician Mri Rm [address] [facility] MRI Comment on above: Right knee pain, uns pecified chronicity Start: 03-20-2018 End: 03-21-2018 Patient encounter procedure Malik Dominic Desouza [facility] Procedures Date Procedure Procedure Detail Performing Clinician Start: 07-07-2023 Follow-up visit Follow-up SEBAS GILL Start: 05-08-2020 Mri any jt lower ext rem w/o contrast matrl Rama Thomason Work Phone: Plan of Treatment Date Care Activity Detail Author Start: 03-10-2024 Tobacco Screening Tobacco Screening [facility] Start: 03-07-2024 Adult BMI Screening Adult BMI Screening [facility] Start: 07-21-2023 End: 07-21-2023 Patient encounter procedure 07/21/2023 9:30 AM EDT Appointment [facility] - Neurophysiology [address] [place] [address] [facility] - Neuro[facility]iology Start: 07-07-2023 End: 07-07-2023 Patient encounter procedure [facility] Start: 06-10-2023 End: 06-10-2023 Patient encounter procedure 06/10/2023 10:00 AM EDT Appointment [facility] Imaging [address] [place] [address] [facility] Start: 04-21-2023 End: 04-21-2023 Patient encounter procedure 04/21/2023 9:30 AM EST Appointment [facility] - Neurophysiology [address] [place] [address] [facility] Start: 11-26-2022 Influenza vaccination Influenza Vaccine [facility] Start: 11-27-2019 Influenza vaccination Flu vaccine (#1) [employer] Phone: Start: 06-27-2013 Screening for malignant neoplasm of breast Breast cancer screen [employer] Phone: Start: 06-27-2013 Screening for malignant neoplasm of colon Colon cancer screen colonoscopy [employer] Phone: Start: 06-27-2013 Shingles Vaccine (1 of 2) Shingles Vaccine (1 of 2) [employer] Phone: Start: 2003 Lipid panel Lipid screen [employer] Phone: Start: 06-27-1984 Screening for malignant neoplasm of cervix Cervical cancer screen [employer] Phone: Start: 06-27-1982 Administration of varicella zoster vaccine Zoster (Shingles) Vaccine (1 of 2) [facility] Start: 06-27-1982 DTaP,Tdap and Td Vaccines (1 - Tdap) DTaP,Tdap and Td Vaccines (1 - Tdap) [facility] Start: 06-27-1982 DTaP/Tdap/Td vaccine (1 - Tdap) DTaP/Tdap/Td vaccine (1 - Tdap) [employer] Phone: Start: 06-27-1981 Adult BMI Follow Up Plan Adult BMI Follow Up Plan [facility] Start: 06-27-1978 HIV screening HIV screen [employer] Phone: Start: 1975 Depression Screening Depression Screening [facility] Start: 1965 Hepatitis C screening Hepatitis C screen [employer] Phone: Start: 1965 Tobacco Counseling Tobacco Counseling [facility] End: 03-12-2024 Botox Injection For Cervical Dystonia Botox Injection For Cervical Dystonia Neurology Routine Every 3 Months for 4 Occurrences starting 05/23/2023 until 03/12/2024 [employer] Phone: Comment on above: Every 3 Months for 4 Occurrences startin g 05/23/2023 until 03/12/2024 Payers Date Payer Category Payer Self-pay [id number] 2018 Worker's Compensation WORKER'S C OMPENSATION WORKER'S [id number]-[id number] ONLY [id number] 2018-Present [id number] [id number]. [id number] 2018 Unknown 1965 Unknown [id number] 2.16.840.1.106207.3.579.2. 176 1965 Unknown [id number] 2.16.840.1.239543.3.579.2. 593 1965 Unknown [id number] 2.16.840.1.365400.3.579.2. 593 1965 Unknown [id number] 2.16.840.1.600160.3.579.2. 593 1965 Unknown [id number] 2.16.840.1.757264.3.579.2. 727 1965 Unknown [id number] 2.16.840.1.122858.3.579.2. 1286 1965 Unknown [id number] 2.16.840.1.577576.3.579.2. 1286 1965 Unknown [id number] 2.16.840.1.450394.3.579.2. 1286 1965 Unknown [id number] 2.16.840.1.354123.3.579.2. 1285 1965 Unknown [id number] 2.16.840.1.835728.3.579.2. 1286 1965 Unknown [id number] 2.16.840.1.185567.3.579.2. 1286 1963 Unknown [id number] 2.16.840.1.632808.3.579.2. 1286 1963 Unknown [id number] 2.16.840.1.385705.3.579.2. 1286 1963 Unknown [id number] 2.16.840.1.399184.3.579.2. 1286 1965 Unknown [id number] 2.16.840.1.918706.3.579.2. 1286 1963 Unknown [id number] 2.840.1.620234.3.579.2. 1285 1965 Unknown [id number] 2.840.1.684395.3.579.2. 1285 1963 Unknown [id number] 2.840.1.112530.3.579.2. 1285 1965 Unknown [id number] 2.0.1.916211.3.579.2. 1285 1965 Unknown [id number] 2.840.1.237985.3.579.2. 1285 1963 Unknown [id number] 2.0.1.577130.3.579.2. 1285 1963 Unknown [id number] 2.0.1.727596.3.579.2. 1285 1963 Unknown [id number] 2.0.1.815609.3.579.2. 1285 1963 Unknown [id number] 2.0.1.401438.3.579.2. 1285 1963 Unknown [id number] 2.0.1.439430.3.579.2. 1285 1963 Unknown [id number] 2.840.1.772032.3.579.2. 1285 1965 Unknown [id number] 2.0.1.081797.3.579.2. 1285 1959 Unknown [id number] Unknown [id number] 2.840.1.300966.3.579.2. 531 Social History Date Type Detail Facility Tobacco smoking stat [facility] Unknown if ever smoked [employer] Phone: Start: 1965 Sex Assigned At Not on file [facility] Phone: Exposure to SARS-CoV -2 (event) Not sure [employer] Phone: Start: 06-06-2020 End: 06-06-2020 Tobacco smoking status NHIS Smoker (finding) [facility] Start: 1965 Sex Assigned At Female F [facility] Start: 05-08-2020 End: 03-10-2023 Sex Assigned At [facility] Start: 02-24-2023 Tobacco smoking stat us NHIS Smokes tobacco daily [facility] History of tobacco use Cigarette Smoker [facility] Start: 02-24-2023 Tobacco use and exposure User of smokeless tobacco [facility] Start: 02-24-2023 End: 03-10-2023 Alcohol intake Current drinker of alcohol (finding) [facility] Start: 05-08-2020 End: 03-10-2023 History of Social function [facility] Are you worried or concerned that in the next two months you may not have stable housing that you own, rent or stay in as a part of a household? No [facility] Start: 01-12-2019 Alcohol Comment once in a great whil e [facility] Medical Equipment Procedure Code Equipment Code Equipment Origin al Text Equipment Identifier Dates Gft Bn Ricardo Cnc 15cc Frzdr - [id number] - [id number] Start: 01-12-2019 Patch Dura 16x10 cm Drgrd Bvn Pricrd Strl Lf - [id number] Start: 12-26-2022 Plt Bn 41mm +20d Oblq L 3 - Sna - [id number] Start: 01-12-2019 Scr Bn Ricardo 2.4m m 16mm Strdrv - Sna - [id number] Start: 01-12-2019 Goals Date Patient Goal [...] call today 03/02/23 8:46 from Abi at [facility] who stated that patient had craniotomy a couple months ago and she's noticed in the last few days that it is more swollen. She wanted to know if this was measured after she had the procedure and is requesting call back for medical advice. Please call back and advise, direct callback#: [phone]. Will need to call neurosurgery. Called Abi [...] CT scan that is scheduled on 06/10/2023. Lip[employer] Sprayer did inform her that neurosurgery was not [...] appt to the same day. Please advise. [employer] Sprayer received a call from Daysi with [facility]. Daysi is asking if appointment that is scheduled for 05/05/2023 at 9:30 could please be scheduled on the same day with Neurosurgery appointment. Appointment with Neurosurgery is 06/14/2023 at 2:30pm. Daysi is requesting appointment to either before 2:30pm or after, as long as it is on the same day. Please Advise. Daysi is requesting a call back [phone] to further discuss. Thank you so much Called facility back and it rang until it changed to busy tone Called transportation back and no answer This patient follows care under the fellows and they are only here on afternoons. Called facility Lashaun answered they're trying to make the appts on the same day so that its easier on the patient. She is going to talk to Dr Hutchinson office and see if they have something they may correlate on a Received call today 04/07/23 1:43 from Tere at [facility] who is requesting a call back in regard to previous message. She said that she got some dates/times from the other provider's office. Please call back and advise, callback#: [phone]. Spoke with Lashaun and correlated Dr Hutchinson appt on the same day as ours documented in this encounter [facility] 03-02-2023 Telephone encount er Note Received call today 03/02/23 8:46 from Abi [facility] who stated that patient had craniotomy a couple months ago and she's noticed in the last few days that it is more swollen. She wanted to know if this was measured after she had the procedure and is requesting call back for medical advice. Please call back and advise, direct callback#: [phone]. [facility] 03-02-2023 Telephone encount er Note Will need to call neurosurgery. [facility] 03-02-2023 Telephone encount er Note Called Abi and informed her that if it is about surgery site, she should call neurosurgery and provided the number for it. She voiced understanding. [facility] 03-02-2023 Telephone encount er Note Daysi with Transportation is asking for the appointment (05/05/2023) with stroke to rescheduled on same day with the patients appointment (06/09/2023) with neurosurgery. Also, she is asking for the appointment to be schedule after the CT scan that is scheduled on 06/10/2023. Lip[employer] Sprayer did inform her that neurosurgery was not in our office, she asked to clinical staff to make arrangements with neurosurgery. Please advise [facility] 03-02-2023 Telephone encount er Note Daysi contacted our office back stating that both appts (neurology and neurosurgery) need to be moved to after the appt for her CT scan which is on 06/10/2023. She was transferred to Neurosurgery to reschedule that appt and once that appt is rescheduled we could possibly reschedule our appt to the same day. Please advise. [facility] 03-02-2023 Telephone encount er Note Lipcoat Sprayer received a call from Daysi with [facility]. Daysi is asking if appointment that is scheduled for 05/05/2023 at 9:30 could please be scheduled on the same day with Neurosurgery appointment. Appointment with Neurosurgery is 06/14/2023 at 2:30pm. Daysi is requesting appointment to either before 2:30pm or after, as long as it is on the same day. Please Advise. Daysi is requesting a call back [phone] to further discuss. Thank you so much [facility] 03-02-2023 Telephone encount er Note Called facility back and it rang until it changed to busy tone Called transportation back and no answer This patient follows care under the fellows and they are only here on afternoons. [facility] [employer] 03-02-2023 Telephone encount er Note Called facility Lashaun answered they're trying to make the appts on the same day so that its easier on the patient. She is going to talk to Dr Hutchinson office and see if they have something they may correlate on a [facility] 03-02-2023 Telephone encount er Note Received call today 04/07/23 1:43 from Tere at [facility] who is requesting a call back in regard to previous message. She said that she got some dates/times from the other provider's office. Please call back and advise, callback#: [phone]. [facility] 03-02-2023 Telephone encount er Note Spoke with Lashaun and correlated Dr Hutchinson appt on the same day as ours [facility] 12-29-2020 Evaluation note Encounter Date Diagnosis Assessment [...] Patient care instructions given in writting by [facility] document. 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 Order 01/18/2023 4:20 PM Latest Code Status on File Code Status Date Activated Date Inactivated Comments DNR Comfort Care Arrest (DNR-CCA) [place] 12/31/2022 11:45 AM 01/11/2023 7:55 PM Code Status History Code Status Date Activated Date Inactivated Comments Full Code 12/26/2022 4:32 AM 12/31/2022 11:45 AM Documents on File Type Date Recorded 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 System Development Engineer Expl vladimir DNR Physician Order 01/18/2023 4:20 PM Latest Code Status on File Code Status Date Activated Date Inactivated Comments DNR Comfort Care Arrest (DNR-CCA) [place] 12/31/2022 11:45 AM 01/11/2023 7:55 PM Code Status History Code Status Date Activated Date Inactivated Comments Full Code 12/26/2022 4:32 AM 12/31/2022 11:45 AM Reason for Referral Status Reason Specialty Diagnoses / Procedures Referre d By Contact Referred To Contact Closed Radiology Diagnoses Right knee pain, unspecified chronicity Procedures MRI KNEE RIGHT WO CONTRAST Rama Thomason MD [address] [place] [address] Specialty Diagnoses / Procedures Referred By Contac t Referred To Contact Procedures Botox Injection [place] [address] [place] [address], [address] [place] [address] Referral ID Status Reason Start Date Expiration Date V isits Requested Visits Authorized [id number] Pending Review 05/23/2023 05/22/2024 4 4 Assessments Diagnosis Right knee pain, unspecified chronicity Chief Complaint and Reason for Visit Chief Complaint Knee Pain Chief Complaint Knee Pain Knee Pain Additional Source Comments INFORMATION SOURCE (unrecogn ized section and content) DATE CREATED AUTHOR 03/30/2018 [place] [facility] DATE CREATED AUTHOR AUTHOR'S ORGANIZ ATION 05/12/2020 [facility] DATE CREATED AUTHOR AUTHOR'S ORGANIZ ATION 08/03/2022 [facility] DATE CREATED AUTHOR AUTHOR'S ORGANIZ ATION 11/05/[address] [facility] DATE CREATED AUTHOR AUTHOR'S ORGANIZ ATION 12/11/2023 [facility] DATE CREATED AUTHOR AUTHOR'S ORGANIZ ATION 12/13/2023 [facility] DATE CREATED AUTHOR AUTHOR'S ORGANIZ ATION 02/05/2024 [facility] Reason for Visit (unrecogniz ed section and content) Status Reason Specialty Diagnoses / Procedures Referre d By Contact Referred To Contact Closed Radiology Diagnoses Right knee pain, unspecified chronicity Procedures MRI KNEE RIGHT WO CONTRAST Rama Thomason MD [address] [place] [address] Reason Onset Date Comments Post-op Craniotomy 03/02/2023 Care Teams (unrecognized sec tion and content) 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 [employer] provides no warranty or guarantee of the accuracy or completeness of information in this document.
== END 2024-02-10 13:39 | disposition home or self-care (01) ==
LOC: MRI 13:38
PROVIDERS: PCP Family Medicine; Visit Provider Family Medicine
DX: E07.9 Disorder of thyroid, unspecified (principal); N28.89 Other specified disorders of kidney and ureter
CPT/HCPCS: 74183; A9575

== ENCOUNTER 2024-06-25 16:40 | Outpatient (REF) | payer OTHER, SELFPAY ==
[2024-06-25 16:57] LABS: Bilirubin Urine NEGATIVE (NEGATIVE); Blood Urine SMALL (NEGATIVE); Clarity Urine CLEAR (CLEAR); Color Urine LT. YELLOW (YELLOW); Glucose Urine UA NEGATIVE (NEGATIVE); Ketones Urine NEGATIVE (NEGATIVE); Leukocyte Esterase Urine SMALL (NEGATIVE); Nitrite Urine POSITIVE (NEGATIVE); Protein Urine NEGATIVE (NEG/TRACE); Urobilinogen Urine 0.2 EU/dL (0.2-1.0); pH Urine 6.5 (5.0-9.0)
--- OUTSIDE RECORDS SUMMARY | 2024-06-25 16:57 | XMS_ITS | CCD ---
Author Organization [facility] Providers Care Test Kitchen Home Economist Name Role Phone Nill, Malik R Unavailable Unavailable Nill, Malik R Unavailable Unavailable Nill, Malik R Unavailable Unavailable Hoy, Alex~[phone] UNKNOWN Unavailable Unavailable HOY, ALEX M Referring Unavailable HOY, ALEX M Primary Care Unavailable Hoy, Alex M Primary Care Provider Alex Pritchett Primary Care Provider Sesar Gutiérrez Attending Provider [phone] Chhaya Spivey Unavailable SHREYAS ., DR [...] Unavailable HOY ., DR ONTIVEROS Consulting Unavailable MARTIN, DR FRANCES Del Valle Consulting Unavailable FRANCES NICHOLS Unavailable HOY, ALEX M Referring Unavailable HOY, ALEX M Primary Care Unavailable KULWANT BURTONIN A Referring Unavailable HOY, ALEX M Primary Care Unavailable ALBINO BURTON A Admitting Unavailable REINARDALBINO A Attending Unavailable HOY, ALEX M Primary Care Unavailable HOY, ALEX M Primary Care Unavailable ELIGIO MENDEZ Attending Unavailable HOY, ALEX M Referring Unavailable HOY, ALEX M Primary Care Unavailable HOY, ALEX M Referring Unavailable HOY, ALEX M Primary Care Unavailable REINALBINO FERMIN A Attending Unavailable HOY, ALEX M Referring Unavailable HOY, ALEX M Primary Care Unavailable HOY, ALEX M Referring Unavailable HOY, ALEX M Primary Care Unavailable HOY, ALEX M Referring Unavailable HOY, ALEX M Primary Care Unavailable RHODA URRUTIA M Attending Unavailable ELIGIO MENDEZ Referring Unavailable HOY, ALEX M Primary Care Unavailable HOY, ALEX M Referring Unavailable HOY, ALEX M Primary Care Unavailable GIGI SUAREZ Attending Unavailable GHADA, RHODA Romo Attending Unavailable HOY, ALEX M Referring Unavailable HOY, ALEX M Primary Care Unavailable Chelsea RESIDENT ASSISTANT CNA-C, Ena Marlow Attending Provider [phone] Ena Tran Attending Unavailable Ena Tran Admitting Unavailable Alex Pritchett MD Primary Care Provider [phone] Alex Pritchett MD Primary Care Provider [phone] GIGI SUAREZ Referring Unavailable HOY, ALEX M Primary Care Unavailable МАРИЯ, SEVERINO M Referring Unavailable HOY, ALEX M Primary Care Unavailable ALBINO BURTON Referring Unavailable HOY, ALEX M Primary Care Unavailable OELIGIO RAYMUNDO Referring Unavailable HOY, ALEX M Primary Care Unavailable ALBINO BURTON Referring Unavailable HOY, ALEX M Primary Care Unavailable HOY, ALEX M Referring Unavailable HOY, ALEX M Primary Care Unavailable RHODA URRUTIA M Attending Unavailable GHADA, RHODA M Referring Unavailable HOY, ALEX M Primary Care Unavailable RHODA URRUTIA Attending Unavailable GHADA, RHODA M Referring Unavailable HOY, ALEX M Primary Care Unavailable OOSTRELIGIO Quintana Referring Unavailable HOY, ALEX M Primary Care Unavailable Unavailable Unavailable Unavailable Allergies Allergy Classification Reported Allergen(s) Allergy Type Date of Onset Reaction(s) Facility (1 source) No Known Medication Allergies; Translations: [No Known Medication Allergies] Propensity to adverse reactions (disorder) [facility] Medications Current Medications Medication Drug Class(es) Dates Sig (Normalized) Sig (Original) acetaminophen 325 mg oral tablet (20 sources) Start: 02-02-2023 take 2 tablets by mouth every six hours as needed for pain acetaminophen (TYLENOL) 325 mg tablet Take 2 tablets (650 mg total) by mouth every 6 (six) hours as needed for pain. 30 tablet 10/12/2023 Active aspirin 81 mg delayed release oral tablet (20 sources) Platelet Aggregation Inhibitor, Nonsteroidal Anti-inflammatory Drug Start: 11-02-2023 End: 11-01-2024 take 1 tablet by mouth in the morning aspirin 81 mg Indications: Essential thrombocytosis (CMS-HCC) , JAK2 [id number] mutation Take 1 tablet (81 mg total) by mouth in the morning. 90 tablet 3 11/02/2023 11/01/2024 Active Start: 10-17-2023 End: 11-02-2023 aspirin 81 mg chewable table t Chew 1 tablet (81 mg total) and swallow in the morning. 10/17/2023 11/02/2023 Discontinued Start: 01-12-2023 aspirin 81 mg chewable tablet Chew 1 tablet (81 mg total) and swallow in the morning. 30 tablet 3 01/12/2023 Active baclofen 10 mg oral tablet (20 sources) gamma-Aminobutyric Acid-ergic Agonist take 0.5 tablet by mouth in the morning, then take 0.5 tablet by mouth at bedtime baclofen (LIORESAL) 10 mg tablet Take 0.5 tablets (5 mg total) by mouth in the morning and 0.5 tablets (5 mg total) before bedtime. Active bisacodyl 10 mg rectal suppository (20 sources) Stimulant Laxative Start: 2022 bisacodyL (DULCOLAX) 10 mg suppository Insert 1 suppository (10 mg total) into the rectum as needed. 02/02/2023 Active calcium carbonate 1250 mg oral tablet (1 source) Start: 2020 take 1 tablet by mouth once daily Calcium Carbonate (Calcium 500) 500 mg calcium (1,250 mg) Tablet Active 500 MG PO Daily June 10, 2020 11:00pm carvedilol 25 mg oral tablet (20 sources) alpha-Adrenergic Iliana, beta-Adrenergic Iliana Start: 2022 End: 2023 take 1 tablet by mouth in the morning, then take 1 tablet by mouth at bedtime carvediloL (COREG) 25 mg tablet Take 1 tablet (25 mg total) by mouth in the morning and 1 tablet (25 mg total) before bedtime. 60 tablet 3 01/11/2023 Active ciprofloxacin 500 mg oral tablet (2 sources) Quinolone Antimicrobial Start: 2023 End: 2023 take 1 tablet by mouth in the morning, then take 1 tablet by mouth at bedtime ciprofloxacin HCl (CIPRO) 500 mg tablet Indications: Abnormal finding on urinalysis Take 1 tablet (500 mg total) by mouth in the morning and 1 tablet (500 mg total) before bedtime. Do all this for 7 days. 14 tablet 10/05/2023 10/12/2023 Active diclofenac sodium 75 mg delayed release oral tablet (3 sources) Nonsteroidal Anti-inflammatory Drug Start: 2020 End: 2020 take 75 mg by mouth once daily Diclofenac Sodium Active 75 MG PO Daily June 06, 2020 9:50am docusate sodium 50 mg / sennosides, retirement 8.6 mg oral tablet (20 sources) sennosides-docus ate sodium (SENNA WITH DOCUSATE SODIUM) 8.6-50 mg Take 1 tablet by mouth as needed for constipation. Active famotidine 20 mg oral tablet (20 sources) Histamine-2 Receptor Antagonist Start: 2022 famotidine (PEPCID) 20 mg tablet 1 tablet (20 mg total) in the morning and 1 tablet (20 mg total) before bedtime. 02/02/2023 Active 1 ml heparin sodium, porcine 5000 unt/ml prefilled syringe (8 sources) Unfractionated Heparin, Anti-coagulant take 8000 [IU] parenteral route every eight hours heparin sodium,porcine (heparin, porcine,) 5,000 unit/mL syringe Inject 8,000 Units as directed every 8 (eight) hours. Active hydroxyurea 500 mg oral capsule (20 sources) Antimetabolite Start: 2023 take 2 capsules by mouth once daily hydroxyurea (HYDREA) 500 mg chemo capsule Take 2 capsules by mouth daily 09/27/2023 Active End: 11-02-2023 take 2 tablets by mouth in the evening HYDROXYUREA ORAL Take 2 tablets by mouth in the evening. 11/02/2023 Discontinued (Duplicate Listing) take 2 tablets by mo uth in the evening HYDROXYUREA ORAL Take 2 tablets by mouth in the evening. Active take 3 capsules by m outh once daily in the evening HYDROXYUREA ORAL Take 500 mg by mouth in the evening. 3 capsules daily via G tube. Active take 3 capsules by m outh once daily in the evening HYDROXYUREA ORAL Take 500 mg by mouth in the evening. 3 capsules daily via G tube. 0 Active hypromellose 5 mg/ml ophthalmic solution (20 sources) Start: 01-11-2023 take 1 drop(s) into the eye(s) every two hours as needed artificial tears,hypromellose, (ISOPTO TEARS) 0.5 % ophthalmic solution Administer 1 drop to both eyes every 2 (two) hours as needed (if heavily sedated or paralyzed). 15 mL 3 01/11/2023 Active ibuprofen 200 mg oral tablet (20 sources) Nonsteroidal Anti-inflammatory Drug Start: 10-17-2023 take 1 tablet by mouth every six hours as needed for pain ibuprofen (ADVIL,MOTRIN) 200 mg tablet Take 1 tablet (200 mg total) by mouth every 6 (six) hours as needed for pain (pt took equivalent to 800mg of the over the counter). 10/17/2023 Active take 1 tablet by isra th every six hours as needed for pain ibuprofen (ADVIL,MOTRIN) 200 mg tablet T chriss 1 tablet (200 mg total) by mouth every 6 (six) hours as needed for pain (pt took equivalent to 800mg of the over the counter). Active potassium chloride 20 meq extended release oral tablet (14 sources) Start: 09-08-2023 potassium chloride (K-TAB,KLOR-CON) 20 mEq CR tablet Take 1 tablet (20 mEq total) by mouth every morning. 09/08/2023 Active simvastatin 40 mg oral tablet (20 sources) HMG-CoA Reductase Inhibitor Start: 06-11-2020 take 1 tablet by mouth once daily Simvastatin 40 mg Tablet Active 40 MG PO Daily June 10, 2020 11:00pm traZODone hydrochloride 50 mg oral tablet (20 sources) Serotonin Reuptake Inhibitor Start: 02-02-2023 take 1 tablet by mouth once daily traZODone (DESYREL) 50 mg tablet Take 1 tablet (50 mg total) by mouth nightly. 02/02/2023 Active venlafaxine 75 mg oral tablet (20 sources) Serotonin and Norepinephrine Reuptake Inhibitor Start: 06-05-2020 take 1 tablet by mouth once daily Venlafaxine 75 mg Tablet Active 75 MG PO Daily June 10, 2020 11:00pm take 2 tablets by mouth once debbie ly venlafaxine (EFFEXOR) 75 mg tablet Take 2 tablets (150 mg total) by mouth nightly. Active Completed/Discontinued Medications Medication Drug Class(es) Dates Sig (Normalized) Sig (Original) albuterol 0.833 mg/ml / ipratropium bromide 0.167 mg/ml inhalation solution (10 sources) Anticholinergic, beta2-Adrenergic Agonist Start: 02-02-2023 End: 09-26-2023 ipratropium-albute roL (DUONEB) 0.5 mg-3 mg(2.5 mg base)/3 mL nebulizer Inhale 3 mL. 02/02/2023 09/26/2023 Discontinued (Therapy completed) amLODIPine 5 mg oral tablet (16 sources) Dihydropyridine Calcium Channel Iliana Start: 01-11-2023 End: 11-02-2023 take 1 tablet by mouth in the morning amLODIPine (NORVASC) 5 mg tablet Take 1 tablet (5 mg total) by mouth in the morning. 30 tablet 3 01/11/2023 11/02/2023 Discontinued dextromethorphan hydrobromide 20 mg / quiNIDine sulfate 10 mg oral capsule (7 sources) Antiarrhythmic, Uncompetitive U-bdlfvj-M-aspartate Receptor Antagonist, Cytochrome P450 2D6 Inhibitor, Sigma-1 Agonist Start: 07-03-2023 End: 09-26-2023 NUEDEXTA 20-10 mg capsule 07/03/2023 09/26/2023 Discontinued (Therapy completed) 0.4 ml enoxaparin sodium 100 mg/ml prefilled syringe (13 sources) Low Molecular Weight Heparin Start: 09-23-2023 End: 12-23-2023 inject 0.4 mL by subcutaneous injection in the morning enoxaparin (LOVENOX) 40 mg/0.4 mL syringe Inject 0.4 mL (40 mg total) under the skin in the morning for 30 days. 12 mL 10/26/2023 11/02/2023 Discontinued insulin lispro 100 unt/ml injectable solution (10 sources) Insulin Analog Start: 02-02-2023 End: 09-26-2023 insulin lispro (HumaLOG) 100 unit/mL injection Inject 0-0.06 mL (0-6 Units total) under the skin 4 (four) times a day. 02/02/2023 09/26/2023 Discontinued (Therapy completed) magnesium hydroxide 80 mg/ml oral suspension (10 sources) Start: 02-02-2023 End: 09-26-2023 magnesium hydroxide (MILK OF MAGNESIA) 400 mg/5 mL suspension 30 mL as needed. 02/02/2023 09/26/2023 Discontinued (Therapy completed) ondansetron 4 mg disintegrating oral tablet (10 sources) Serotonin-3 Receptor Antagonist Start: 02-02-2023 End: 09-26-2023 take 1 tablet by mouth every six hours as needed ondansetron ODT (ZOFRAN ODT) 4 mg disintegrating tablet 1 tablet (4 mg total) every 6 (six) hours as needed. 02/02/2023 09/26/2023 Discontinued (Therapy completed) polyethylene glycol 3350 67558 mg powder for oral solution (10 sources) Osmotic Laxative End: 09-26-2023 polyethylene glycol (GLYCOLAX) 17 gram packet Take 17 g by mouth in the morning. 09/26/2023 Discontinued (Therapy completed) potassium phosphate 155 mg / sodium phosphate, dibasic 852 mg / sodium phosphate, monobasic 130 mg oral tablet (10 sources) Start: 02-02-2023 End: 09-26-2023 take 1 tablet by mouth once daily in the morning sod phos di, mono-K phos mono (K-PHOS NEUTRAL) 250 mg tablet Take 1 tablet by mouth every morning. 02/02/2023 09/26/2023 Discontinued (Therapy completed) Problems Active Problems Problem Classification Problem Date Documented Date Episodic/Chronic Acute cerebrovascular disease (20 sources) Cerebral infarction, unspecified; Translations: [Cerebrovascular accident] Onset: 01-11-2023 07-15-2023 Chronic Aortic and peripheral arterial embolism or thrombosis (20 sources) Other arterial embolism and thrombosis of abdominal aorta; Translations: [Thrombosis of aorta] Onset: 12-26-2022 12-26-2022 Chronic Aortic; peripheral; and visceral artery aneurysms (1 source) Aneurysm of ascending aorta; Translations: [Aneurysm of ascending aorta without rupture ([facility]-H[facility])] 12-23-2023 Chronic Late effects of cerebrovascular disease (20 sources) Other sequelae of cerebral infarction; Translations: [Spasticity as sequela of stroke] Onset: 04-21-2023 04-21-2023 Chronic Neoplasms of unspecified nature or uncertain behavior (12 sources) Essential (hemorrhagic) thrombocythemia; Translations: [Essential thrombocythemia] Onset: 11-02-2023 11-02-2023 Chronic Nutritional deficiencies (1 source) Vitamin D deficiency, unspecified; Translations: [VITAMIN D DEFICIENCY UNSPECIFIED] Onset: 02-27-2022 Chronic Occlusion or stenosis of precerebral arteries (4 sources) Occlusion and stenosis of bilateral carotid arteries; Translations: [Bilateral stenosis of carotid arteries] Onset: 11-14-2023 11-14-2023 Chronic Osteoporosis (5 sources) Age-related osteoporosis without current pathological fracture; Translations: [AGE-REL OSTEOPOR W/O CURR PATH FX] Onset: 03-26-2022 Chronic Other endocrine disorders (1 source) Adrenal mass; Translations: [Other specified disorders of adrenal gland] 12-23-2023 Chronic Other non-traumatic joint disorders (1 source) Pain in right knee; Translations: [Right knee pain, unspecified chronicity] Peripheral and visceral atherosclerosis (3 sources) Peripheral vascular disease, unspecified; Translations: [Intermittent claudication] Onset: 11-14-2023 11-14-2023 Chronic Residual codes; unclassified (1 source) Other specified postprocedural states; Translations: [Other specified postprocedural states] Onset: 11-22-2023 Episodic Thyroid disorders (1 source) Multinodular goiter; Translations: [Nontoxic multinodular goiter] 12-23-2023 Chronic Unclassified (1 source) Cerebrovascular accident (CVA), unspecified mechanism (CMS-HCC) [I63.9] Onset: 10-10-2023 Unclassified (1 source) Carotid Artery Disease Onset: 12-12-2023 Unclassified (1 source) Post-op Onset: 11-22-2023 Past or Other Problems Problem Classification Problem Date Documented Da te Episodic/Chronic Genitourinary symptoms and ill-defined conditions (1 source) Abnormal urinalysis; Translations: [Unspecified abnormal findings in urine] 10-05-2023 Episodic Immunizations and screening for infectious disease (1 source) Contact with and (suspected) exposure to other viral communicable diseases; Translations: [Contact with and (suspected) exposure to other viral communicable diseases Z20.828] Onset: 12-29-2020 Resolved: 12-29-2020 Episodic Malaise and fatigue (1 source) Other fatigue; Translations: [OTHER FATIGUE] Onset: 02-27-2022 Episodic Mood disorders (17 sources) Mood disorders Onset: 08-25-2023 Resolved: 10-10-2023 10-10-2023 Other acquired deformities (3 sources) Other acquired deformity of head; Translations: [Other acquired deformity of head] Onset: 07-07-2023 Episodic Other acquired deformities (20 sources) Skull finding; Translations: [Other acquired deformity of head] Onset: 07-13-2023 07-15-2023 Episodic Other aftercare (1 source) Other artificial candy maker (current) drug therapy; Translations: [OTH COMMERCIAL LAWN SPECIALIST CURRENT DRUG THERAPY] Onset: 02-27-2022 Episodic Other bone disease and musculoskeletal deformities (1 source) Other specified disorders of bone density and structure, other site; Translations: [OTH D/O BONE DEN STRUCT OT SITE] Onset: 03-26-2022 Episodic Other circulatory disease (1 source) History of cerebral hemorrhage; Translations: [Personal history of other diseases of the circulatory system] 08-30-2023 Episodic Other connective tissue disease (1 source) Other muscle spasm; Translations: [Other muscle spasm] Onset: 04-21-2023 Episodic Other connective tissue disease (1 source) Cramp and spasm; Translations: [Cramp and spasm] Onset: 04-21-2023 Episodic Other connective tissue disease (20 sources) Spasm; Translations: [Other muscle spasm] Onset: 04-21-2023 04-21-2023 Episodic Other diseases of kidney and ureters (1 source) Kidney lesion; Translations: [Disorder of kidney and ureter, unspecified] 12-23-2023 Episodic Other screening for suspected conditions (not mental disorders or infectious disease) (2 sources) Encounter for screening mammogram for malignant neoplasm of breast; Translations: [Encounter for screening for malignant neoplasm of colon] Onset: 02-27-2022 Episodic Residual codes; unclassified (1 source) Family history of other malignant neoplasms of lymphoid, hematopoietic and related tissues; Translations: [FAM HX OTH MAL GUMARO LYMPH HEMATPOETC] Onset: 03-26-2022 Episodic Residual codes; unclassified (2 sources) Genetic susceptibility to other disease; Translations: [Genetic susceptibility to other disease] Onset: 11-02-2023 Episodic Residual codes; unclassified (9 sources) Genetic mutation; Translations: [Genetic susceptibility to other disease] Onset: 11-02-2023 11-02-2023 Episodic Residual codes; unclassified (1 source) History of craniotomy; Translations: [Other specified postprocedural states] 11-22-2023 Episodic Results Test Name Value Interpretation Reference Range Facility CBC AND AUTO DIFFon 05-08-19 25 Erythrocyte distribution width (RBC) [Ratio] 14.8 % Normal 11.5-15.0 [facility] Comment on above: Performed By: #### U A #### [facility] ([id number]) [address] [place] [address] 22062 Hematocrit (Bld) [Volume fraction] 38.3 % Normal 35-47 [facility] Comment on above: Performed By: #### U A #### [facility] ([id number]) [address] [place] [address] 82848 Hemoglobin (Bld) [Mass/Vol] 12.7 g/dL Normal 11.7-15.5 [facility] Comment on above: Performed By: #### U A #### [facility] ([id number]) [address] [place] [address] 17940 Lymphocytes (Bld) [#/Vol] 1.8 10*3/uL Normal 1.0-3.5 [facility] Comment on above: Performed By: #### U A #### [facility] ([id number]) [address] [place] [address] 89308 Lymphocytes/100 WBC (Bld) 54.8 % Normal [facility] Comment on above: Performed By: #### U A #### [facility] ([id number]) [address] [place] [address] 92548 MCH (RBC) [Entitic mass] 38.2 pg High 27-34 [facility] Comment on above: Performed By: #### U A #### [facility] ([id number]) [address] [place] [address] 85457 MCHC (RBC) [Mass/Vol] 33.2 g/dL Normal 32-36 [facility] Comment on above: Performed By: #### U A #### [facility] ([id number]) [address] [place] [address] 11863 MCV (RBC) [Entitic vol] 115 fL High 80-100 [facility] Comment on above: Performed By: #### U A #### [facility] ([id number]) [address] [place] [address] 43240 Monocytes (Bld) [#/Vol] 0.1 10*3/uL Normal 0-0.9 [facility] Comment on above: Performed By: #### U A #### [facility] ([id number]) [address] [place] [address] 19271 Monocytes/100 WBC (Bld) 1.9 % Normal [facility] Comment on above: Performed By: #### U A #### [facility] ([id number]) [address] [place] [address] 66446 Neutrophils (Bld) [#/Vol] 1.4 10*3/uL Low 1.5-6.6 [facility] Comment on above: Performed By: #### U A #### [facility] ([id number]) [address] [place] [address] 50714 OVALOCYTE 1+ Abnormal NONE [facility] Comment on above: Performed By: #### U A #### [facility] ([id number]) [address] [place] [address] 44495 Platelet mean volume (Bld) [Entitic vol] 8.9 fL Normal 7-12 [facility] Comment on above: Performed By: #### U A #### [facility] ([id number]) [address] [place] [address] 64785 Platelets (Bld) [#/Vol] 121 10*3/uL Low 150-450 [facility] Comment on above: Performed By: #### U A #### [facility] ([id number]) [address] [place] [address] 75918 POLYCHROMASIA 1+ Abnormal NONE [facility] Comment on above: Performed By: #### U A #### [facility] ([id number]) [address] [place] [address] 51960 RBC COUNT 3.32 X10E12/L Low 3.80-5.20 [facility] Comment on above: Performed By: #### U A #### [facility] ([id number]) [address] [place] [address] 90881 SEG NEUTROPHIL 43.3 % Normal [facility] Comment on above: Performed By: #### U A #### [facility] ([id number]) [address] [place] [address] 12582 WBC (Bld) [#/Vol] 3.3 10*3/uL Low 4.0-11.0 [facility] Comment on above: Performed By: #### U A #### [facility] ([id number]) [address] [place] [address] 45895 COMPREHENSIVE METABOLIC PANE Sebastián 05-08-2024 Albumin [Mass/Vol] 3.9 g/dL Normal 3.2-5.3 [facility] Comment on above: Performed By: #### U A #### [facility] ([id number]) [address] [place] [address] 35518 ALP [Catalytic activity/Vol] 90 U/L Normal 39-130 [facility] Comment on above: Performed By: #### U A #### [facility] ([id number]) [address] [place] [address] 92257 ALT [Catalytic activity/Vol] 9 U/L Normal 0-31 [facility] Comment on above: Performed By: #### U A #### [facility] ([id number]) [address] [place] [address] 76382 Anion gap [Moles/Vol] 5 mmol/L Normal 5-15 [facility] Comment on above: Performed By: #### U A #### [facility] ([id number]) [address] [place] [address] 35804 AST [Catalytic activity/Vol] 15 U/L Normal 0-41 [facility] Comment on above: Performed By: #### U A #### [facility] ([id number]) [address] [place] [address] 09645 Bilirubin [Mass/Vol] 0.3 mg/dL Normal 0.3-1.2 [facility] Comment on above: Performed By: #### U A #### [facility] ([id number]) [address] [place] [address] 60667 Calcium [Mass/Vol] 9.2 mg/dL Normal 8.5-10.5 [facility] Comment on above: Performed By: #### U A #### [facility] ([id number]) [address] [place] [address] 56091 Chloride [Moles/Vol] 106 mmol/L Normal 98-109 [facility] Comment on above: Performed By: #### U A #### [facility] ([id number]) [address] [place] [address] [place] [address] CO2 [Moles/Vol] 30 mmol/L Normal 22-32 [facility] Comment on above: Performed By: #### U A #### [facility] ([id number]) [address] [place] [address] [place] [address] Creatinine [Mass/Vol] 0.64 mg/dL Normal 0.40-1.00 [facility] Comment on above: Result Comment: METH OD TRACEABLE TO IDMS STANDARD Performed By: #### U A #### [facility] ([id number]) [address] [place] [address]17 eGFR (CKD-EPI) NON-RACE DEPENDENT >90 Normal >59 [facility] Comment on above: Result Comment: Reported eGFR is based on the CKD-EPI 2020 equation that does not use a race coefficient. Performed By: #### U A #### [facility] ([id number]) [address] [place] [address]192 Glucose [Mass/Vol] 100 mg/dL High 65-99 [facility] Comment on above: Performed By: #### U A #### [facility] ([id number]) [address] [place] [address]24 Potassium [Moles/Vol] 3.8 mmol/L Normal 3.5-5.0 [facility] Comment on above: Performed By: #### U A #### [facility] ([id number]) [address] [place] [address] 50260 Protein [Mass/Vol] 6.5 g/dL Normal 6.0-8.0 [facility] Comment on above: Performed By: #### U A #### [facility] ([id number]) [address] [place] [address] 18859 Sodium [Moles/Vol] 141 mmol/L Normal 134-146 [facility] Comment on above: Performed By: #### U A #### [facility] ([id number]) [address] [place] [address] 78688 Urea nitrogen [Mass/Vol] 20 mg/dL Normal 5-23 [facility] Comment on above: Performed By: #### U A #### [facility] ([id number]) [address] [place] [address] 77160 Pathology study report docum entOrdered By: Concetta Sarah on 02-10-2024 Pathology study [facility] Other Sebastián 02-03-2024 L -------- -------- Specimen: [id number] Received: 02/06/24 Status: SHAYNE Saldana Num: [id number] Spec Type: Cytology Subm Dr: Ena Tran CNP Tissues: A FNA SLIDES NOPATH (LT THY NOD) Procedures: Cyto Int and Re, PAPSTN/5 -------- Age/ Patient Sex Location Account Attending Physician -------- Angelique Melo 58/F [place] [id number] Ena Tran CNP -------- SPEC NUM: [id number] RECD: 02/06/24 STATUS: SHAYNE REQ NUM: [id number] BEBETO: 02/03/24- SUBM DR: Ena Tran, TREVOR ENTERED: 02/06/[address]: Cm,Lab SPEC TYPE: Cytology DEPT: [facility] ENTERED BY: [id number] RECV BY: [id number] ORDERED: Cyto Int and Re, PAPSTN/5 ORDERED: Cyto Int and Re, PAPSTN/5 Pathological Diagnosis Left thyroid nodule, mid lobe, FNA cytology: -A few very small and slightly disrupted follicular groups are noted in the ThinPrep and the prepared smears, applicable for assessment -The follicular cells generally showing small ovoid nuclei -A few histiocytes are also admixed among follicular cells in one prepared smear -Overall findings are consistent with the Category 2 [place] [facility]: Benign Clinical Information left thyroid mid lobe nodule / Hx: skin cancer basal cell Gross Description Received fixed in Cytolyt is <1 ml colorless clear fixed fluid for cytology said to have been obtained as Left thyroid mid nodule. ThinPrep preparations are prepared for microscopic examination. Also received are 4 spray fixed smeared slides for pap and a Veracyte vial stored at -20 for microscopic examination. (ME/nh) -------- Specimen: [id number] Received: 02/06/24 Status: SHAYNE Req Num: [id number] Spec Type: Cytology Subm Dr: Ena Tran CNP Tissues: A FNA SLIDES NOPATH (LT THY NOD) Procedures: Cyto Int and Re, PAPSTN/5 -------- Patient: Angelique Melo [id number] (Continued) -------- Specimen: [id number] Received: 02/06/24 (Continued) Signed (signature on file) Concetta Sarah MD 02/10/24 1611 -------- Specimen: [id number] Received: 02/06/24 Status: SHAYNE Saldana Num: [id number] Spec Type: Cytology Subm Dr: Ena Tran, [employer] Tissues: A FNA SLIDES NOPATH (LT THY NOD) Procedures: Cyto Int and Re, PAPSTN/5 -------- Patient: Angelique Melo [id number] (Continued) -------- Specimen: [id number] Received: 02/06/24 (Continued) Microscopic Description Microscopic examinations are performed supporting the above interpretation CPT Codes 54491 -------- -------- Specimen: [id number] Received: 02/06/24 Status: SHAYNE Saldana Num: [id number] Spec Type: Cytology Subm Dr: Ena Tran CNP Tissues: A FNA SLIDES NOPATH (LT THY NOD) Procedures: Cyto Int and Re, PAPSTN/5 -------- Patient: Angelique Melo [id number] (Continued) -------- Signed (signature on file) Manuel-Brayan Sarah MD 02/10/24 1611 Normal [facility] CT CTA ABD AND PELVISon 11-26 CT [...] Juan Asher DO on 12/06/2023 8:51 AM IMalik MD have personally reviewed the image(s) and agree with and/or edited the report Finalized by Malik Cheung MD on 12/06/2023 9:45 AM Normal [facility] CT CTA CHESTon 12-06-2023 CT CTA CHEST [...] Art Gale on 12/06/2023 2:35 PM Normal [facility] BASIC METABOLIC PANLon 10-11 Anion gap [Moles/Vol] 7 mmol/L Normal 5-15 [facility] Comment on above: Performed By: #### C MINH, BMP #### [facility] ([id number]) [address], [address] [place] [address] Calcium [Mass/Vol] 8.9 mg/dL Normal 8.5-10.5 [facility] Comment on above: Performed By: #### C MINH, BMP #### [facility] ([id number]) [address], [address] [place] [address] Chloride [Moles/Vol] 105 mmol/L Normal 98-109 [facility] Comment on above: Performed By: #### C BCA, BMP #### [facility] ([id number]) [address], [address] [place] [address] CO2 [Moles/Vol] 27 mmol/L Normal 22-32 [facility] Comment on above: Performed By: #### C BCA, BMP #### [facility] ([id number]) [address], [address] [place] [address] Creatinine [Mass/Vol] 0.50 mg/dL Normal 0.40-1.00 [facility] Comment on above: Result Comment: METH OD TRACEABLE TO IDMS STANDARD Performed By: #### C BCA, BMP #### [facility] ([id number]) [address], [address] [place] [address] eGFR (CKD-EPI) NON-RACE DEPENDENT >90 Normal >59 [facility] Comment on above: Result Comment: Reported eGFR is based on the CKD-EPI 2020 equation that does not use a race coefficient. Performed By: #### C BCA, BMP #### [facility] ([id number]) [address], [address] [place] [address] Glucose [Mass/Vol] 99 mg/dL Normal 65-99 [facility] Comment on above: Performed By: #### C BCA, BMP #### [facility] ([id number]) [address] [address] [place] [address] Potassium [Moles/Vol] 3.6 mmol/L Normal 3.5-5.0 [facility] Comment on above: Performed By: #### C BCA, BMP #### [facility] ([id number]) [address] [address] [place] [address] Sodium [Moles/Vol] 139 mmol/L Normal 134-146 [facility] Comment on above: Performed By: #### C BCA, BMP #### [facility] ([id number]) [address] [address] [place] [address] Urea nitrogen [Mass/Vol] 15 mg/dL Normal 5-23 [facility] Comment on above: Performed By: #### C MINH, BMP #### [facility] ([id number]) [address], [address] [place] [address] CBC AND AUTO DIFFon 10-12-19 Erythrocyte distribution width (RBC) [Ratio] 14.3 % Normal 11.5-15.0 [facility] Comment on above: Performed By: #### C MINH, BMP #### [facility] ([id number]) [address], [facility] [address] [place] [address] Hematocrit (Bld) [Volume fraction] 27.9 % Low 35-47 [facility] Comment on above: Performed By: #### C MINH, BMP #### [facility] ([id number]) [address], [address] [place] [address] Hemoglobin (Bld) [Mass/Vol] 9.5 g/dL Low 11.7-15.5 [facility] Comment on above: Performed By: #### C MINH, BMP #### [facility] ([id number]) [address], [address] [place] [address] Lymphocytes (Bld) [#/Vol] 2.9 10*3/uL Normal 1.0-3.5 [facility] Comment on above: Performed By: #### C BCA, BMP #### [facility] ([id number]) [address], [address] [place] [address] Lymphocytes/100 WBC (Bld) 42.0 % Normal [facility] Comment on above: Performed By: #### C BCA, BMP #### [facility] ([id number]) [address], [address] [place] [address] MCH (RBC) [Entitic mass] 40.3 pg High 27-34 [facility] Comment on above: Performed By: #### C MINH, BMP #### [facility] ([id number]) [address], [address] [place] [address] MCHC (RBC) [Mass/Vol] 34.1 g/dL Normal 32-36 [facility] Comment on above: Performed By: #### C MINH, BMP #### [facility] ([id number]) [address], [address] [place] [address] MCV (RBC) [Entitic vol] 118 fL High 80-100 [facility] Comment on above: Performed By: #### C MINH, BMP #### [facility] ([id number]) [address], [address] [place] [address] Monocytes (Bld) [#/Vol] 0.3 10*3/uL Normal 0-0.9 [facility] Comment on above: Performed By: #### C MINH, BMP #### [facility] ([id number]) [address], [address] [place] [address] Monocytes/100 WBC (Bld) 4.0 % Normal [facility] Comment on above: Performed By: #### C MINH, BMP #### [facility] ([id number]) [address], [address] [place] [address] Neutrophils (Bld) [#/Vol] 3.8 10*3/uL Normal 1.5-6.6 [facility] Comment on above: Performed By: #### C MINH, BMP #### [facility] ([id number]) [address], [address] [place] [address] OVALOCYTE 1+ Abnormal NONE [facility] Comment on above: Performed By: #### C MINH, BMP #### [facility] ([id number]) [address], [address] [place] [address] Platelet mean volume (Bld) [Entitic vol] 8.4 fL Normal 7-12 [facility] Comment on above: Performed By: #### C BCA, BMP #### [facility] ([id number]) [address], [address] [place] [address] Platelets (Bld) [#/Vol] 200 10*3/uL Normal 150-450 [facility] Comment on above: Performed By: #### C BCA, BMP #### [facility] ([id number]) [address] [place] [address] POLYCHROMASIA 1+ Abnormal NONE [facility] Comment on above: Performed By: #### C BCA, BMP #### [facility] ([id number]) [address], [address] [place] [address] RBC COUNT 2.36 X10E12/L Low 3.80-5.20 [facility] Comment on above: Performed By: #### C BCA, BMP #### [facility] ([id number]) [address], [address] [place] [address] SEG NEUTROPHIL 54.0 % Normal [facility] Comment on above: Performed By: #### C BCA, BMP #### [facility] ([id number]) [address], [address] [place] [address] WBC (Bld) [#/Vol] 7.0 10*3/uL Normal 4.0-11.0 [facility] Comment on above: Performed By: #### C BCA, BMP #### [facility] ([id number]) [address], [address] [place] [address] BASIC METABOLIC PANLon 10-10 Anion gap [Moles/Vol] 9 mmol/L Normal 5-15 [facility] Comment on above: Performed By: #### C BC, BMP #### [facility] ([id number]) [address] [place] [address] Calcium [Mass/Vol] 9.0 mg/dL Normal 8.5-10.5 [facility] Comment on above: Performed By: #### Amanda FRAGA, BMP #### [facility] ([id number]) [address], [address] [place] [address] Chloride [Moles/Vol] 105 mmol/L Normal 98-109 [facility] Comment on above: Performed By: #### Amanda FRAGA, BMP #### [facility] ([id number]) [address], [address] [place] [address] CO2 [Moles/Vol] 25 mmol/L Normal 22-32 [facility] Comment on above: Performed By: #### Amanda FRAGA, BMP #### [facility] ([id number]) [address], [address] [place] [address] Creatinine [Mass/Vol] 0.45 mg/dL Normal 0.40-1.00 [facility] Comment on above: Result Comment: METH OD TRACEABLE TO IDMS STANDARD Performed By: #### Amanda FRAGA, BMP #### [facility] ([id number]) [address], [address] [place] [address] eGFR (CKD-EPI) NON-RACE DEPENDENT >90 Normal >59 [facility] Comment on above: Result Comment: Reported eGFR is based on the CKD-EPI 2020 equation that does not use a race coefficient. Performed By: #### Amanda FRAGA, BMP #### [facility] ([id number]) [address], [address] [place] [address] Glucose [Mass/Vol] 127 mg/dL High 65-99 [facility] Comment on above: Performed By: #### Amanda FRAGA, BMP #### [facility] ([id number]) [address], [address] [place] [address] Potassium [Moles/Vol] 3.6 mmol/L Normal 3.5-5.0 [facility] Comment on above: Performed By: #### C BC, BMP #### [facility] ([id number]) [address], [address] [place] [address] Sodium [Moles/Vol] 139 mmol/L Normal 134-146 [facility] Comment on above: Performed By: #### C BC, BMP #### [facility] ([id number]) [address], [address] [place] [address] Urea nitrogen [Mass/Vol] 15 mg/dL Normal 5-23 [facility] Comment on above: Performed By: #### C FLAKITO, BMP #### [facility] ([id number]) [address], [address] [place] [address] COMPLETE BLOOD COUNTon 10-10 Erythrocyte distribution width (RBC) [Ratio] 14.1 % Normal 11.5-15.0 [facility] Comment on above: Performed By: #### C FLAKITO, BMP #### [facility] ([id number]) [address], [address] [place] [address] Hematocrit (Bld) [Volume fraction] 30.6 % Low 35-47 [facility] Comment on above: Performed By: #### C BC, BMP #### [facility] ([id number]) [address] [place] [address] Hemoglobin (Bld) [Mass/Vol] 10.6 g/dL Low 11.7-15.5 [facility] Comment on above: Performed By: #### C BC, BMP #### [facility] ([id number]) [address] [place] [address] MCH (RBC) [Entitic mass] 40.5 pg High 27-34 [facility] Comment on above: Performed By: #### C BC, BMP #### [facility] ([id number]) [address], [address] [place] [address] MCHC (RBC) [Mass/Vol] 34.6 g/dL Normal 32-36 [facility] Comment on above: Performed By: #### Amanda FRAGA, BMP #### [facility] ([id number]) [address], [facility] [address] [place] [address] MCV (RBC) [Entitic vol] 117 fL High 80-100 [facility] Comment on above: Performed By: #### Amanda FRAGA, BMP #### [facility] ([id number]) [address], [address] [place] [address] Platelet mean volume (Bld) [Entitic vol] 8.1 fL Normal 7-12 [facility] Comment on above: Performed By: #### Amanda FRAGA, BMP #### [facility] ([id number]) [address], [address] [place] [address] Platelets (Bld) [#/Vol] 220 10*3/uL Normal 150-450 [facility] Comment on above: Performed By: #### Amanda FRAGA, BMP #### [facility] ([id number]) [address] [place] [address] RBC COUNT 2.62 X10E12/L Low 3.80-5.20 [facility] Comment on above: Performed By: #### Amanda FRAGA, BMP #### [facility] ([id number]) [address], [address] [place] [address] WBC (Bld) [#/Vol] 5.3 10*3/uL Normal 4.0-11.0 [facility] Comment on above: Performed By: #### Amanda FRAGA, BMP #### [facility] ([id number]) [address], [address] [place] [address] CT BRAIN WO CONTon CT BRAIN WO [...] Jeffers MD on 10/11/2023 2:29 AM Normal [facility] Glucose Glucometer (BldC) [M ass/Vol]on 10-10-2023 Glucose [Mass/Vol] 133 mg/dL High 65-99 [facility] BASIC METABOLIC PANLon 10-04 Anion gap [Moles/Vol] 8 mmol/L Normal 5-15 [facility] Comment on above: Performed By: #### U A #### [facility] ([id number]) [address] [place] [address] Calcium [Mass/Vol] 9.8 mg/dL Normal 8.5-10.5 [facility] Comment on above: Performed By: #### U A #### [facility] ([id number]) [address] [place] [address] Chloride [Moles/Vol] 104 mmol/L Normal 98-109 [facility] Comment on above: Performed By: #### U A #### [facility] ([id number]) [address] [place] [address] CO2 [Moles/Vol] 28 mmol/L Normal 22-32 [facility] Comment on above: Performed By: #### U A #### [facility] ([id number]) [address] [place] [address]10 Creatinine [Mass/Vol] 0.63 mg/dL Normal 0.40-1.00 [facility] Comment on above: Result Comment: METH OD TRACEABLE TO IDMS STANDARD Performed By: #### U A #### [facility] ([id number]) [address] [place] [address] eGFR (CKD-EPI) NON-RACE DEPENDENT >90 Normal >59 [facility] Comment on above: Result Comment: Reported eGFR is based on the CKD-EPI 2020 equation that does not use a race coefficient. Performed By: #### U A #### [facility] ([id number]) [address] [place] [address] Glucose [Mass/Vol] 92 mg/dL Normal 65-99 [facility] Comment on above: Performed By: #### U A #### [facility] ([id number]) [address] [place] [address] Potassium [Moles/Vol] 4.7 mmol/L Normal 3.5-5.0 [facility] Comment on above: Performed By: #### U A #### [facility] ([id number]) [address] [place] [address]31 Sodium [Moles/Vol] 140 mmol/L Normal 134-146 [facility] Comment on above: Performed By: #### U A #### [facility] ([id number]) [address] [place] [address] Urea nitrogen [Mass/Vol] 18 mg/dL Normal 5-23 [facility] Comment on above: Performed By: #### U A #### [facility] ([id number]) [address] [place] [address]190 BLOOD CULTUREon 10-05-2023 Bacteria identified Aer cx Nom (Bld) SPECIMEN NOTES SUBOPTIMAL VOLUME OF BLOOD COLLECTED, RESULTS MAY BE AFFECTED. CULTURE RESULTS NO GROWTH 5 DAYS Normal [facility] Comment on above: Performed By: #### U A #### [facility] ([id number]) [address] [place] [address]96 Bacteria identified Aer cx Nom (Bld) SPECIMEN NOTES RIGHT ANTECUBITAL CULTURE RESULTS NO GROWTH 5 DAYS Normal [facility] Comment on above: Performed By: #### U A #### [facility] ([id number]) [address] [place] [address] CBC AND AUTO DIFFon 10-05-19 Erythrocyte distribution width (RBC) [Ratio] 14.6 % Normal 11.5-15.0 [facility] Comment on above: Performed By: #### P INR, 07646-4 #### [facility] ([id number]) [address] [place] [address] #### CBCA, 87768-6, [facility], 1987-07 #### [facility] ([id number]) [address], [address] [place] [address] Hematocrit (Bld) [Volume fraction] 36.6 % Normal 35-47 [facility] Comment on above: Performed By: #### P INR, 84495-3 #### [facility] ([id number]) [address] [place] [address] #### CBCA, 30922-3, [facility], 1987-07 #### [facility] ([id number]) [address] [place] [address] Hemoglobin (Bld) [Mass/Vol] 12.3 g/dL Normal 11.7-15.5 [facility] Comment on above: Performed By: #### P INR, 89464-9 #### [facility] ([id number]) [address] [place] [address] #### EDITH, 63434-8, BMP, 1987-07 #### [facility] ([id number]) [address] [place] [address] Lymphocytes (Bld) [#/Vol] 1.7 10*3/uL Normal 1.0-3.5 [facility] Comment on above: Performed By: #### P INR, 06072-4 #### [facility] ([id number]) [address] [place] [address] #### EDITH, 69412-6, [facility], 1987-07 #### [facility] ([id number]) [address] [place] [address] Lymphocytes/100 WBC (Bld) 59.0 % Normal [facility] Comment on above: Performed By: #### P INR, 39885-1 #### [facility] ([id number]) [address] [place] [address] #### EDITH, 26743-1, [facility], 1987-07 #### [facility] ([id number]) [address] [place] [address] MCH (RBC) [Entitic mass] 39.7 pg High 27-34 [facility] Comment on above: Performed By: #### P INR, 40336-8 #### [facility] ([id number]) [address] [place] [address] #### CBCA, 06799-4, BMP, 1987-07 #### [facility] ([id number]) [address] [place] [address] MCHC (RBC) [Mass/Vol] 33.5 g/dL Normal 32-36 [facility] Comment on above: Performed By: #### P INR, 26027-3 #### [facility] ([id number]) [address] [place] [address] #### CBCA, 19531-1, BMP, 1987-07 #### [facility] ([id number]) [address] [place] [address] MCV (RBC) [Entitic vol] 119 fL High 80-100 [facility] Comment on above: Performed By: #### P INR, 77929-8 #### [facility] ([id number]) [address] [place] [address]10 #### CBCA, 43318-7, BMP, 1987-07 #### [facility] ([id number]) [address] [place] [address] Monocytes (Bld) [#/Vol] 0.2 10*3/uL Normal 0-0.9 [facility] Comment on above: Performed By: #### P INR, 82428-9 #### [facility] ([id number]) [address] [place] [address]150 #### CBCA, 05652-0, BMP, 1987-07 #### [facility] ([id number]) [address] [place] [address] Monocytes/100 WBC (Bld) 7.0 % Normal [facility] Comment on above: Performed By: #### P INR, 84387-3 #### [facility] ([id number]) [address] [place] [address] #### CBCA, 63633-3, BMP, 1987-07 #### [facility] ([id number]) [address] [place] [address] Neutrophils (Bld) [#/Vol] 1.0 10*3/uL Low 1.5-6.6 [facility] Comment on above: Performed By: #### P INR, 23124-4 #### [facility] ([id number]) [address] [place] [address] 16593 #### CBCA, 57005-0, BMP, 1987-07 #### [facility] ([id number]) [address] [facility], [address] [place] [address] Platelet mean volume (Bld) [Entitic vol] 8.7 fL Normal 7-12 [facility] Comment on above: Performed By: #### P INR, 83762-8 #### [facility] ([id number]) [address] [place] [address]996 #### CBCA, 20355-2, BMP, 1987-07 #### [facility] ([id number]) [address] [facility], [address] [place] [address] Platelets (Bld) [#/Vol] 290 10*3/uL Normal 150-450 [facility] Comment on above: Performed By: #### P INR, 30603-5 #### [facility] ([id number]) [address] [place] [address] 88852 #### CBCA, 00590-1, BMP, 1987-07 #### [facility] ([id number]) [address], [address] [place] [address] RBC COUNT 3.08 X10E12/L Low 3.80-5.20 [facility] Comment on above: Performed By: #### P INR, 05484-6 #### [facility] ([id number]) [address] [place] [id number] #### CBCA, 45941-2, BMP, 1987-07 #### [facility] ([id number]) [address] [place] [address], [address] [place] [address] RBC morphology finding Nom (Bld) NORMAL Normal [facility] Comment on above: Performed By: #### P INR, 97351-1 #### [facility] ([id number]) [address] [place] [address] #### CBCA, 74983-4, BMP, 1987-07 #### [facility] ([id number]) [address] [place] [address], [address] [place] [address] SEG NEUTROPHIL 34.0 % Normal [facility] Comment on above: Performed By: #### P INR, 05495-2 #### [facility] ([id number]) [address] [place] [address] #### CBCA, 50361-4, [facility], 1987-07 #### [facility] ([id number]) [address] [place] [address], [address] [place] [address] WBC (Bld) [#/Vol] 2.9 10*3/uL Low 4.0-11.0 [facility] Comment on above: Performed By: #### P INR, 34093-0 #### [facility] ([id number]) [address] [place] [address] #### CBCA, 69069-5, [facility], 1987-07 #### [facility] ([id number]) [address] [place] [address], [address] [place] [address] CRP [Mass/Vol]on 10-05-2023 C REACTIVE PROTEIN 0.1 mg/dL Normal 0.000-0.74 4 [facility] Comment on above: Performed By: #### U A #### [facility] ([id number]) [address] [place] [address] ESR Photometric method (Bld) [Velocity]on 10-05-2023 ESR, ERYTHROCYTE SEDIMENTATION RATE 1 mm/h Normal 0-30 [facility] Comment on above: Performed By: #### U A #### [facility] ([id number]) [address] [place] [address] PROTIME AND INRon 10-05-2023 INR Coag (PPP) [Relative time] 1.0 {INR} Normal 0.8-1.1 [facility] Comment on above: Performed By: #### P INR, 73243-0 #### [facility] ([id number]) [address] [place] [address] #### CBCA, 07215-2, [facility], 1987-07 #### [facility] ([id number]) [address], [address] [place] [address] PT Coag (PPP) [Time] 12.1 s Normal 9.8-13.2 [facility] Comment on above: Result Comment: NEW REFERENCE RANGE Performed By: #### P INR, 06909-7 #### [facility] ([id number]) [address] [place] [address] #### CBCA, 07957-8, [facility], 1987-07 #### [facility] ([id number]) [address], [address] [place] [address] aPTT Coag (PPP) [Time]on aPTT Coag (Bld) [Time] 25 s Low 26-37 [facility] Comment on above: Result Comment: NEW REFERENCE RANGE Performed By: #### P INR, 02364-0 #### [facility] ([id number]) [address] [place] [address] #### CBCA, 68980-5, [facility], 1987-07 #### [facility] ([id number]) [address], [address] [place] [address] URINALYSISon 10-02-2023 Bilirubin Ql (U) Negative Normal NEG [facility] Comment on above: Performed By: #### U A #### [facility] ([id number]) [address] [place] [address], [place] [address] BLOOD/HGB Negative Normal NEG [facility] Comment on above: Performed By: #### U A #### [facility] ([id number]) [address] [place] [address] [place] [address] Color (U) YELLOW Normal YELLOW [facility] Comment on above: Performed By: #### U A #### [facility] ([id number]) [address] [place] [place] [address] [place] [address] Glucose Ql (U) Negative Normal NEG [facility] Comment on above: Performed By: #### U A #### [facility] ([id number]) [address] [place] [place] [address] [place] [address] Ketones Ql (U) Negative Normal NEG [facility] Comment on above: Performed By: #### U A #### [facility] ([id number]) [address] [place] [place] [address] [place] [address] Leukocyte esterase Test strip Ql (U) Trace Abnormal NEG [facility] Comment on above: Performed By: #### U A #### [facility] ([id number]) [address] [place] [place] [address] [place] [address] Nitrite Ql (U) Positive Abnormal NEG [facility] Comment on above: Performed By: #### U A #### [facility] ([id number]) [address] [place] [place] [address] [place] [address] pH (U) 7.5 [pH] Normal 5.0-8.5 [facility] Comment on above: Performed By: #### U A #### [facility] ([id number]) [address] [place] [place] [address] [place] [address] Protein Ql (U) Negative Normal NEG [facility] Comment on above: Performed By: #### U A #### [facility] ([id number]) [address] [place] [address], [place] [address] R.B.CELLS 0 /hpf Normal 0-5 [facility] Comment on above: Performed By: #### U A #### [facility] ([id number]) [address] [place] [place] [address] [place] [address] Specific gravity (U) [Rel density] 1.020 Normal 1.003-1.03 5 [facility] Comment on above: Performed By: #### U A #### [facility] ([id number]) [address] [place] [place] [address] [place] [address] SQUAMOUS EPITHELIUM 12 /hpf High 0-5 [facility] Comment on above: Performed By: #### U A #### [facility] ([id number]) [address] [place] [address] [place] [address] TURBIDITY CLOUDY Abnormal CLEAR [facility] Comment on above: Performed By: #### U A #### [facility] ([id number]) [address] [place] [place] [address] [place] [address] Urobilinogen Qn (U) 1.0 {Tra'U}/dL Normal <1.1 [facility] Comment on above: Performed By: #### U A #### [facility] ([id number]) [address] [place] [address] [place] [address] W.B.CELLS 5 /hpf Normal 0-5 [facility] Comment on above: Performed By: #### U A #### [facility] ([id number]) [address] [place] [place] [address] [place] [address] BASIC METABOLIC PANLon 09-29 Anion gap [Moles/Vol] 8 mmol/L Normal 5-15 [facility] Comment on above: Performed By: #### C BCA, BMP #### [facility] ([id number]) [address], [address] [place] [address] Calcium [Mass/Vol] 10.1 mg/dL Normal 8.5-10.5 [facility] Comment on above: Performed By: #### C BCA, BMP #### [facility] ([id number]) [address], [address] [place] [address] Chloride [Moles/Vol] 104 mmol/L Normal 98-109 [facility] Comment on above: Performed By: #### C BCA, BMP #### [facility] ([id number]) [address] [address] [place] [address] CO2 [Moles/Vol] 28 mmol/L Normal 22-32 [facility] Comment on above: Performed By: #### C BCA, BMP #### [facility] ([id number]) [address], [address] [place] [address] Creatinine [Mass/Vol] 0.62 mg/dL Normal 0.40-1.00 [facility] Comment on above: Result Comment: METH OD TRACEABLE TO IDMS STANDARD Performed By: #### C BCA, BMP #### [facility] ([id number]) [address] [address] [place] [address] eGFR (CKD-EPI) NON-RACE DEPENDENT >90 Normal >59 [facility] Comment on above: Result Comment: Reported eGFR is based on the CKD-EPI 1 equation that does not use a race coefficient. Performed By: #### C BCA, BMP #### [facility] ([id number]) [address] [address] [place] [address] Glucose [Mass/Vol] 99 mg/dL Normal 65-99 [facility] Comment on above: Performed By: #### C BCA, BMP #### [facility] ([id number]) [address] [address] [place] [address] Potassium [Moles/Vol] 3.8 mmol/L Normal 3.5-5.0 [facility] Comment on above: Performed By: #### Amanda WILKINSON, BMP #### [facility] ([id number]) [address], [address] [place] [address] Sodium [Moles/Vol] 140 mmol/L Normal 134-146 [facility] Comment on above: Performed By: #### Amanda WILKINSON, BMP #### [facility] ([id number]) [address], [facility] [address] [place] [address] Urea nitrogen [Mass/Vol] 15 mg/dL Normal 5-23 [facility] Comment on above: Performed By: #### Amanda WILKINSON, BMP #### [facility] ([id number]) [address], [address] [place] [address] CBC AND AUTO DIFFon 09-30-19 24 Eosinophils (Bld) [#/Vol] 0.0 10*3/uL Normal 0.0-0.4 [facility] Comment on above: Performed By: #### Amanda WILKINSON, BMP #### [facility] ([id number]) [address], [address] [place] [address] Eosinophils/100 WBC (Bld) 1.0 % Normal [facility] Comment on above: Performed By: #### Amanda WILKINSON, BMP #### [facility] ([id number]) [address], [address] [place] [address] Erythrocyte distribution width (RBC) [Ratio] 15.0 % Normal 11.5-15.0 [facility] Comment on above: Performed By: #### Amanda WILKINSON, BMP #### [facility] ([id number]) [address], [address] [place] [address] Hematocrit (Bld) [Volume fraction] 38.6 % Normal 35-47 [facility] Comment on above: Performed By: #### C BCA, BMP #### [facility] ([id number]) [address], [address] [place] [address] Hemoglobin (Bld) [Mass/Vol] 12.9 g/dL Normal 11.7-15.5 [facility] Comment on above: Performed By: #### C BCA, BMP #### [facility] ([id number]) [address], [address] [place] [address] Lymphocytes (Bld) [#/Vol] 1.6 10*3/uL Normal 1.0-3.5 [facility] Comment on above: Performed By: #### C BCA, BMP #### [facility] ([id number]) [address], [address] [place] [address] Lymphocytes/100 WBC (Bld) 49.0 % Normal [facility] Comment on above: Performed By: #### C BCA, BMP #### [facility] ([id number]) [address], [address] [place] [address] MCH (RBC) [Entitic mass] 39.9 pg High 27-34 [facility] Comment on above: Performed By: #### C BCA, BMP #### [facility] ([id number]) [address], [address] [place] [address] MCHC (RBC) [Mass/Vol] 33.5 g/dL Normal 32-36 [facility] Comment on above: Performed By: #### C BCA, BMP #### [facility] ([id number]) [address], [address] [place] [address] MCV (RBC) [Entitic vol] 119 fL High 80-100 [facility] Comment on above: Performed By: #### C BCA, BMP #### [facility] ([id number]) [address], [address] [place] [address] Monocytes (Bld) [#/Vol] 0.4 10*3/uL Normal 0-0.9 [facility] Comment on above: Performed By: #### Amanda WILKINSON, BMP #### [facility] ([id number]) [address], [address] [place] [address] Monocytes/100 WBC (Bld) 11.0 % Normal [facility] Comment on above: Performed By: #### C MINH, BMP #### [facility] ([id number]) [address], [facility] [address] [place] [address] Neutrophils (Bld) [#/Vol] 1.2 10*3/uL Low 1.5-6.6 [facility] Comment on above: Performed By: #### Amanda WILKINSON, BMP #### [facility] ([id number]) [address], [address] [place] [address] Platelet mean volume (Bld) [Entitic vol] 8.5 fL Normal 7-12 [facility] Comment on above: Performed By: #### Amanda WILKINSON, BMP #### [facility] ([id number]) [address], [address] [place] [address] Platelets (Bld) [#/Vol] 316 10*3/uL Normal 150-450 [facility] Comment on above: Performed By: #### Amanda WILKINSON, BMP #### [facility] ([id number]) [address], [address] [place] [address] RBC COUNT 3.24 X10E12/L Low 3.80-5.20 [facility] Comment on above: Performed By: #### C MINH, BMP #### [facility] ([id number]) [address], [address] [place] [address] RBC morphology finding Nom (Bld) NORMAL Normal [facility] Comment on above: Performed By: #### C MINH, BMP #### [facility] ([id number]) [address], [address] [place] [address] SEG NEUTROPHIL 39.0 % Normal [facility] Comment on above: Performed By: #### C BCA, BMP #### [facility] ([id number]) [address], [address] [place] [address] WBC (Bld) [#/Vol] 3.2 10*3/uL Low 4.0-11.0 [facility] Comment on above: Performed By: #### C BCA, BMP #### [facility] ([id number]) [address], [address] [place] [address] BLOOD CULTUREon 09-26-2023 Bacteria identified Aer cx Nom (Bld) CULTURE RESULTS NO SPECIMEN RECEIVED IN LABORATORY ACCOUNT CREDITED Normal [facility] Comment on above: Performed By: #### 1 7928-3 #### [facility] ([id number]) [address], [address] [place] [address] ECG 12 leadon 09-26-2023 TRACEMASTERVUE [facility] XR CHEST 2 VWSon 09-19-2023 XR CHEST [...] Xavier MD on 09/19/2023 2:40 PM Normal [facility] URINALYSISon 07-25-2023 Bilirubin Ql (U) Negative Normal NEG [facility] Comment on above: Performed By: #### U A #### [facility] ([id number]) [address] [place] [place] [address] [place] [address] BLOOD/HGB Large Abnormal NEG [facility] Comment on above: Performed By: #### U A #### [facility] ([id number]) [address] [place] [address] [place] [address] CA OXALATE CRYSTALS PRESENT Abnormal NONE [facility] Comment on above: Performed By: #### U A #### [facility] ([id number]) [address] [place] [address] Color (U) YELLOW Normal YELLOW [facility] Comment on above: Performed By: #### U A #### [facility] ([id number]) [address] [place] [place] [address] [place] [address] Glucose Ql (U) Negative Normal NEG [facility] Comment on above: Performed By: #### U A #### [facility] ([id number]) [address] [place] [address] Ketones Ql (U) Negative Normal NEG [facility] Comment on above: Performed By: #### U A #### [facility] ([id number]) [address] [place] [place] [address] [place] [address] Leukocyte esterase Test strip Ql (U) SMALL Abnormal NEG [facility] Comment on above: Performed By: #### U A #### [facility] ([id number]) [address] [place] [address] Nitrite Ql (U) Positive Abnormal NEG [facility] Comment on above: Performed By: #### U A #### [facility] ([id number]) [address] [place] [place] [address] [place] [address] pH (U) 6.0 [pH] Normal 5.0-8.5 [facility] Comment on above: Performed By: #### U A #### [facility] ([id number]) [address] [place] [address] Protein Ql (U) Negative Normal NEG [facility] Comment on above: Performed By: #### U A #### [facility] ([id number]) [address] [place] [address] R.B.CELLS 10 /hpf High 0-5 [facility] Comment on above: Performed By: #### U A #### [facility] ([id number]) [address] [place] [address] Specific gravity (U) [Rel density] 1.025 Normal 1.003-1.03 5 [facility] Comment on above: Performed By: #### U A #### [facility] ([id number]) [address] [place] [address] SQUAMOUS EPITHELIUM 10 /hpf High 0-5 [facility] Comment on above: Performed By: #### U A #### [facility] ([id number]) [address] [place] [address] TURBIDITY HAZY Abnormal CLEAR [facility] Comment on above: Performed By: #### U A #### [facility] ([id number]) [address] [place] [address] Urobilinogen Qn (U) 0.2 {Tra'U}/dL Normal <1.1 [facility] Comment on above: Performed By: #### U A #### [facility] ([id number]) [address] [place] [address] W.B.CELLS 31 /hpf High 0-5 [facility] Comment on above: Performed By: #### U A #### [facility] ([id number]) [address] [facility] [place] [address] URINE CULTUREon 07-25-2023 Bacteria identified Cx Nom [...] <=1 F TRIMETH/SULFAMETHOXAZOLE S <=1/19 F Susceptible [facility] Comment on above: Performed By: #### 6 30-4 #### [facility] ([id number]) [address] [place] [address], [address] [place] [address] CT BRAIN WO CONTon CT BRAIN WO CONT CT BRAIN WO CONT CLINICAL INFORMATION: Cerebrovascular accident (CVA), unspecified mechanism ([facility]) TECHNIQUE: CT BRAIN WO CONT CT [...] Richards MD on 06/10/2023 3:07 PM Normal [facility] CALCIUMon 08-02-2022 Calcium [Mass/Vol] 9.2 mg/dL Normal 8.5-10.1 [facility] Comment on above: Performed By: #### MIN Valenzuela #### [facility] [address] [place] [address] Dr. Carmelina Sarah CREATININEon 08-02-2022 Creatinine [Mass/Vol] 0.88 mg/dL Normal 0.55-1.02 [facility] Comment on above: Performed By: #### C Lilian, CREA ####[facility] [address] [place] [id number]. Carmelina Sarah EGFR-AF NAMIBIAN >60 Normal >=60 [facility] Comment on above: Performed By: #### C Lilian, CREA ####[facility] [address] [place] [address]Dr. Carmelina Sarah EGFR-NON AF NAMIBIAN >60 Normal >=60 [facility] Comment on above: Performed By: #### C Lilian, CREA ####[facility] [address] [place] [address]DrMelly Sarah MG MAMM SCREEN 3D [place]CEPCIÓN CADon 03-24-2022 MG MAMM SCREEN 3D [place]N CAD Patient: ANGELIQUE MELO Exam Date: 03/24/2022 : 1965 Gender:F Ordering : DR ALEX PRITCHETT . Admission #: [id number] Family : Order #: [id number] CLICK HERE TO VIEW EXAM RADIOLOGY REPORT [...] lymphoma cancer at age 44. LOCATION: [facility] BREAST COMPOSITION: Scattered areas fibroglandular density. FINDINGS: [...] Frances Quezada MD on 03/25/2022 at 08:12 [facility] XR DEXA BONE DENSITYon 03-24 XR DEXA BONE DENSITY DEXA Bone Density Study CLINICAL: Evaluate bone mineral density. Postmenopausal COMPARISON: None FINDINGS: The bone density study was assessed by dual-energy x-ray absorptiometry with the [employer] scanner. The test results are expressed in [...] FRANCES NICHOLS Date: 2022-03-24 09:29 Normal [facility] CBC AUTO DIFFon 02-22-2022 BASO # 0.3 103/ul Critically high 0.0-0.1 [facility] Comment on above: Performed By: #### C BC ####[facility] [address] [place], [place] [address]Dr. Carmelina Sarah Basophils/100 WBC (Bld) 3.0 % Critically high 0.2-2.0 [facility] Comment on above: Performed By: #### C BC ####[facility] [address] [place], [place] [address]DrMelly Sarah EO # 0.3 103/ul Normal 0.0-0.7 [facility] Comment on above: Performed By: #### C BC ####[facility] [address] [place], [place] [address]DrMelly Sarah Eosinophils/100 WBC (Bld) 3.1 % Normal 0.9-7.0 [facility] Comment on above: Performed By: #### C BC ####[facility] [address] [place], [place] [address]DrMelly Sarah Erythrocyte distribution width (RBC) [Ratio] 15.8 % Critically high 11.0-15.0 [facility] Comment on above: Performed By: #### C BC ####[facility] [address] [place], [place] [address]DrMelly Sarah Hematocrit (Bld) [Volume fraction] 48.5 % Critically high 36.0-48.0 [facility] Comment on above: Performed By: #### C BC ####[facility] [address] [place] [address]Dr. Carmelina Sarah Hemoglobin (Bld) [Mass/Vol] 15.6 g/dL Normal 12.0-16.0 [facility] Comment on above: Performed By: #### C BC ####[facility] [address] [place] [address]Dr. Carmelina Sarah IG # 0.05 10e3/ul Critically high 0.00-0.03 [facility] Comment on above: Performed By: #### C BC ####[facility] [address] [place] [address]Dr. Carmelina Sarah IG % 0.5 % Normal 0.0-0.5 [facility] Comment on above: Performed By: #### C BC ####[facility] [address] [place], [place] [address]Dr. Carmelina Sarah LYMPH # 3.2 103/ul Normal 1.2-3.8 [facility] Comment on above: Performed By: #### C BC ####[facility] [address] [place], [place] [address]Dr. Carmelina Sarah Lymphocytes/100 WBC (Bld) 33.4 % Normal 20.5-60.0 [facility] Comment on above: Performed By: #### C BC ####[facility] [address] [place] [address]Dr. Carmelina Sarah MANUAL DIFF REQ NO Normal [facility] Comment on above: Performed By: #### C BC ####[facility] [address] [place], [place] [address]Dr. Carmelina Sarah MCH (RBC) [Entitic mass] 28.3 pg Normal 26.7-34.0 [facility] Comment on above: Performed By: #### C BC ####[facility] [address] [place], [place] [address]Dr. Carmelina Sarah MCHC (RBC) [Mass/Vol] 32.2 g/dL Normal 29.9-35.2 [facility] Comment on above: Performed By: #### C BC ####[facility] [address] [place] [id number]. Carmelina Sarah MCV (RBC) [Entitic vol] 88.0 fL Normal 81.0-99.0 [facility] Comment on above: Performed By: #### C BC ####[facility] [address] [place] [address]Dr. Carmelina Sarah MONO # 0.7 103/ul Normal 0.3-0.8 [facility] Comment on above: Performed By: #### C BC ####[facility] [address] [place] [id number]. aCrmelina Tyrel Monocytes/100 WBC (Bld) 7.7 % Normal 1.7-12.0 [facility] Comment on above: Performed By: #### C BC ####[facility] [address] [place], [place] [address]Dr. Carmelina Sarah NEUT # 5.0 103/ul Normal 1.4-6.5 [facility] Comment on above: Performed By: #### C BC ####[facility] [address] [place] [id number]. Carmelina Tyrel Neutrophils/100 WBC (Bld) 52.3 % Normal 43.0-75.0 [facility] Comment on above: Performed By: #### C BC ####[facility] [address] [place] [id number]. Carmelina Tyrel Platelet mean volume (Bld) [Entitic vol] 10.8 fL Normal 9.5-13.5 [facility] Comment on above: Performed By: #### C BC ####[facility] [id number] [place] [id number]. Carmelina Tyrel PLT 765 103/ul Critically high 150-450 [facility] Comment on above: Performed By: #### C BC ####[facility] [id number] [id number]. Carmelina Sarah RBC 5.51 106/ul Critically high 4.20-5.40 [facility] Comment on above: Performed By: #### C BC ####[facility] [id number] [place] [address]Dr. Carmelina Sarah WBC 9.6 103/ul Normal 4.0-11.0 [facility] Comment on above: Performed By: #### C BC ####[facility] [id number] [place] [address]Dr. Carmelina Sarah FREE T3on 02-22-2022 FREE T3 3.14 pg/mlL Normal 2.18-3.98 [facility] Comment on above: Performed By: #### F T3, TSH, T4, LIPID, CMP #### [facility] [address] [address] [address] Carmelina Sarah GLYCOHEMOGLOBIN A1Con 2021 ADA RECOMMENDATION SEE BELOW Normal [facility] Comment on above: Result Comment: ADA RECOMMENDED LIMIT 4.0 - 6.0 ADA THERAPEUTIC TARGET < 7.0 ACTION SUGGESTED > 7.0 Performed By: #### A 1C #### [facility] [address] [address] [address] Carmelina Sarah Glucose [Mass/Vol] 108 mg/dL Normal [facility] Comment on above: Performed By: #### A 1C #### [facility] [address] [address] [address] Carmelina Sarah HbA1c (Bld) [Mass fraction] 5.4 % Normal 4.5-6.2 [facility] Comment on above: Performed By: #### A 1C #### [facility] [address] [address] [address] Carmelina Sarah LIPID PROFILEon 02-22-2022 CHOL-HDL RATIO NORM SEE BELOW Normal [facility] Comment on above: Result Comment: 3.3 - 4.4 LOW RISK 4.4 - 7.1 AVERAGE RISK 7.1 - 11.0 MODERATE RISK >11.0 HIGH RISK Performed By: #### F T3, TSH, T4, LIPID, CMP #### [facility] [address] [address] [address] Carmelina Sarah Cholesterol [Mass/Vol] 158 mg/dL Normal <=200 [facility] Comment on above: Performed By: #### F T3, TSH, T4, LIPID, CMP #### [facility] [address] [address] [address] Carmelina Sarah Cholesterol in HDL [Mass/Vol] 62 mg/dL Critically high 40-60 [facility] Comment on above: Performed By: #### F T3, TSH, T4, LIPID, CMP #### [facility] [address] [address] [address] Carmelina Sarah Cholesterol in LDL [Mass/Vol] 81.2 mg/dL Normal [facility] Comment on above: Performed By: #### F T3, TSH, T4, LIPID, CMP #### [facility] [address] [address] [address] Carmelina Sarah Cholesterol.total /Cholesterol in HDL [Mass ratio] 2.5 {ratio} Normal [facility] Comment on above: Performed By: #### F T3, TSH, T4, LIPID, CMP #### [facility] [address] [address] [address] Carmelina Sarah HDL NORMAL > or = 60 mg/dl - LO W CARDIOVASCULAR RISK <40 mg/dl - HIGH CARDIOVASCULAR RISK Normal [facility] Comment on above: Performed By: #### F T3, TSH, T4, LIPID, CMP #### [facility] [address] [address] [address] Carmelina Sarah LDL CALC NORMAL SEE BELOW Normal [facility] Comment on above: Result Comment: <100 mg/dl OPTIMAL 100 - 129 mg/dl NEAR OR ABOVE OPTIMAL 130 - 159 mg/dl BORDERLINE HIGH 160 - 189 mg/dl HIGH >190 mg/dl VERY HIGH Performed By: #### F T3, TSH, T4, LIPID, CMP #### [facility] [address] [address] [address] Carmelina Sarah Triglyceride [Mass/Vol] 74 mg/dL Normal <=150 [facility] Comment on above: Performed By: #### F T3, TSH, T4, LIPID, CMP #### [facility] [address] [address] [address] Carmelina Sarah VLDL CALC 14.8 mg/dL Normal [facility] Comment on above: Performed By: #### F T3, TSH, T4, LIPID, CMP #### [facility] [address] [place] [address] Dr. Carmelina Sarah PROF 14(COMP METB)on 022 Albumin [Mass/Vol] 3.8 g/dL Normal 3.4-5.0 [facility] Comment on above: Performed By: #### F T3, TSH, T4, LIPID, CMP #### [facility] [address] [place] [address] Dr. Carmelina Sarah Albumin/Globulin [Mass ratio] 1.0 {ratio} Normal [facility] Comment on above: Performed By: #### F T3, TSH, T4, LIPID, CMP #### [facility] [address] [place] [address] Dr. Carmelina Sarah ALP [Catalytic activity/Vol] 102 U/L Normal 46-116 [facility] Comment on above: Performed By: #### F T3, TSH, T4, LIPID, CMP #### [facility] [address] [place] [address] Dr. Carmelina Sarah ALT [Catalytic activity/Vol] 22 U/L Normal 14-59 [facility] Comment on above: Performed By: #### F T3, TSH, T4, LIPID, CMP #### [facility] [address] [place] [address] Dr. Carmelina Sarah Anion gap [Moles/Vol] 11.1 mmol/L Normal [facility] Comment on above: Performed By: #### F T3, TSH, T4, LIPID, CMP #### [facility] [address] [place] [address] Dr. Carmelina Sarah AST [Catalytic activity/Vol] 21 U/L Normal 15-37 [facility] Comment on above: Performed By: #### F T3, TSH, T4, LIPID, CMP #### [facility] [address] [place] [address] Dr. Carmelina Sarah Bilirubin [Mass/Vol] 0.5 mg/dL Normal 0.2-1.0 [facility] Comment on above: Performed By: #### F T3, TSH, T4, LIPID, CMP #### [facility] [address] [place] [address] Dr. Carmelina Sarah Calcium [Mass/Vol] 9.2 mg/dL Normal 8.5-10.1 [facility] Comment on above: Performed By: #### F T3, TSH, T4, LIPID, CMP #### [facility] [address] [place] [address] Dr. Carmelina Sarah Chloride [Moles/Vol] 104 mmol/L Normal 98-107 [facility] Comment on above: Performed By: #### F T3, TSH, T4, LIPID, CMP #### [facility] [address] [place] [address] Dr. Carmelina Sarah CO2 [Moles/Vol] 27.6 mmol/L Normal 21.0-32.0 [facility] Comment on above: Performed By: #### F T3, TSH, T4, LIPID, CMP #### [facility] [address] [place] [address] Dr. Carmelina Sarah Creatinine [Mass/Vol] 0.93 mg/dL Normal 0.55-1.02 [facility] Comment on above: Performed By: #### F T3, TSH, T4, LIPID, CMP #### [facility] [address] [place] [address] Dr. Carmelina Sarah EGFR-AF NAMIBIAN >60 Normal >=60 [facility] Comment on above: Performed By: #### F T3, TSH, T4, LIPID, CMP #### [facility] [address] [place] [address] Dr. Carmelina Sarah EGFR-NON AF NAMIBIAN >60 Normal >=60 [facility] Comment on above: Performed By: #### F T3, TSH, T4, LIPID, CMP #### [facility] [address] [place] [address] Dr. Carmelina Sarah Globulin (S) [Mass/Vol] 3.7 g/dL Normal [facility] Comment on above: Performed By: #### F T3, TSH, T4, LIPID, CMP #### [facility] [address] [place] [address] Dr. Carmelina Sarah Glucose [Mass/Vol] 90 mg/dL Normal 74-106 [facility] Comment on above: Performed By: #### F T3, TSH, T4, LIPID, CMP #### [facility] [address] [place] [address] Dr. Carmelina Sarah Potassium [Moles/Vol] 3.7 mmol/L Normal 3.5-5.1 [facility] Comment on above: Performed By: #### F T3, TSH, T4, LIPID, CMP #### [facility] [address] [place] [address] Dr. Carmelina Sarah Protein [Mass/Vol] 7.5 g/dL Normal 6.4-8.2 [facility] Comment on above: Performed By: #### F T3, TSH, T4, LIPID, CMP #### [facility] [address] [place] [address] Dr. Carmelina Sarah Sodium [Moles/Vol] 139 mmol/L Normal 136-145 [facility] Comment on above: Performed By: #### F T3, TSH, T4, LIPID, CMP #### [facility] [address] [place] [address] Dr. Carmelina Sarah Urea nitrogen [Mass/Vol] 19.0 mg/dL Critically high 7.0-18.0 [facility] Comment on above: Performed By: #### F T3, TSH, T4, LIPID, CMP #### [facility] [address] [place] [address] Dr. Carmelina Sarah Urea nitrogen/Creatini ne [Mass ratio] 20.4 mg/mg Normal [facility] Comment on above: Performed By: #### F T3, TSH, T4, LIPID, CMP #### [facility] [address] [place] [address] Dr. Carmelina Sarah T4on 02-22-2022 T4 [Mass/Vol] 8.10 ug/dL Normal 4.80-13.90 [facility] Comment on above: Performed By: #### F T3, TSH, T4, LIPID, CMP #### [facility] [address] [place] [address] Dr. Carmelina Sarah TSHon 02-22-2022 TSH 0.985 uIU/mL Normal 0.358-3.74 0 [facility] Comment on above: Performed By: #### F T3, TSH, T4, LIPID, CMP #### [facility] [address] [place] [address] Dr. Carmelina Sarah VITAMIN D 25 OHon 02-22-2022 VIT D 25-OH 51.9 ng/mL Normal [facility] Comment on above: Performed By: #### V ITAD #### [facility] [address] [address] [address] Carmelina Sarah VIT D RANGES SEE BELOW Normal [facility] Comment on above: Result Comment: <20 ng/mL Vit D deficient 20 - <30 ng/mL Vit D insufficient 30 - 100 ng/mL Vit D sufficient >100 ng/mL Potential Toxicity Performed By: #### V ITAD #### [facility] [address] [place] [address] Dr. Carmelina Sarah COVID Quick Testingon [address] Other COVID-19 Positive/Negativeon 06-09-2020 COVID-19 Positive/Negative Negative Negative [facility] Comment on above: Reference: NegativeT esting for SARS-CoV-2 by RT-PCRThis test was developed and its performance characteristics determined by [employer] ([employer]) and validated at the [facility]. This test has not been FDA [...] Otheron 06-09-2020 Coronavirus 2019 PCR Interp N/A [facility] Automated basophil %on 06-06 Basophils/100 WBC (Bld) 2.9 % [facility] Automated basophil counton 0 06-06-2020 Basophils (Bld) [#/Vol] 0.3 10*3/uL 0.0-0.2 [facility] Automated blood lymphocyte c ount (number/volume)on 06-06-2020 Lymphocytes (Bld) [#/Vol] 2.4 10*3/uL 1.00-4.8 [facility] Automated blood lymphocyte c ount as percentage of total leukocyteson 06-06-2020 Lymphocytes/100 WBC (Bld) 26.6 % [facility] Automated blood monocyte cou nton 06-06-2020 Monocytes (Bld) [#/Vol] 1.0 10*3/uL 0.0-0.8 [facility] Automated blood platelet cou nt (count/volume)on 06-06-2020 Platelets (Bld) [#/Vol] 527 10*3/uL 150-450 [facility] Automated blood platelet joi n volume measurementon 06-06-2020 Platelet mean volume (Bld) [Entitic vol] 9.6 fL 6.3-10.7 [facility] Automated eosinophil %on Eosinophils/100 WBC (Bld) 4.8 % [facility] Automated eosinophil counton 06-06-2020 Eosinophils (Bld) [#/Vol] 0.4 10*3/uL 0.0-0.45 [facility] Automated erythrocyte distri bution width ratioon 06-06-2020 Erythrocyte distribution width (RBC) [Ratio] 15.8 % 11.9-15.3 [facility] Automated erythrocyte mean c orpuscular hemoglobin (mass per erythrocyte)on 06-06-2020 MCH (RBC) [Entitic mass] 28.7 pg 24.7-34.3 [facility] Automated erythrocyte mean c orpuscular hemoglobin concentration measurement (mass/volon 06-06-2020 MCHC (RBC) [Mass/Vol] 33.4 g/dL 32.0-35.0 [facility] Automated erythrocyte mean c orpuscular volumeon 06-06-2020 MCV (RBC) [Entitic vol] 85.9 fL 80-100 [facility] Automated monocyte %on 06-06 Monocytes/100 WBC (Bld) 10.9 % [facility] Automated neutrophil %on Neutrophils/100 WBC (Bld) 54.8 % [facility] Blood erythrocytes automated count (number/volume)on 06-06-2020 RBC (Bld) [#/Vol] 5.10 10*6/uL 3.60-5.00 [facility] Blood hemoglobin measurement (mass/volume)on 06-06-2020 Hemoglobin (Bld) [Mass/Vol] 14.7 g/dL 11.8-15.4 [facility] Blood leukocytes automated c ount (number/volume)on 06-06-2020 WBC (Bld) [#/Vol] 9.0 10*3/uL 4.5-11.0 [facility] Blood neutrophil count by au tomated method (number/volume)on 06-06-2020 Neutrophils (Bld) [#/Vol] 4.9 10*3/uL 1.8-7.7 [facility] Body fluid albumin measureme nt (mass/volume)on 06-06-2020 Albumin (Body fld) [Mass/Vol] 4.0 g/dL 3.2-5.5 [facility] Estimated glomerular filtrat ion rate (GFR) non- Americanon 06-06-2020 GFR/1.73 sq M predicted among non-blacks MDRD (S/P/Bld) [Vol rate/Area] 59 mL/min/{1.73_m2} [facility] Hematocrit [Volume Fraction] of Blood by Automated counton 06-06-2020 Hematocrit (Bld) [Volume fraction] 43.8 % 34.0-46.4 [facility] Otheron 06-06-2020 GFR/1.73 sq M.predicted MDRD (S/P/Bld) [Vol rate/Area] mL/min/{1.73_m2} [facility] Comment on above: GFR estimated refere nce range: According to KDOQI guidelines, <60 ml/min/1.73m2 is sufficient to diagnose a patient with chronic kidney disease. Nucleated RBC/100 WBC (Bld) [Ratio] 0.0 % 0-0.5 [facility] Creatinine Clearance (Chem N/A [facility] Protein [Mass/volume] in Ser um or Plasmaon 06-06-2020 Protein [Mass/Vol] 6.5 g/dL 6.1-7.9 [facility] Serum globulin measurement b y calculation (mass/volume)on 06-06-2020 Globulin (S) [Mass/Vol] 2.5 g/dL [facility] Serum or plasma alanine berry otransferase measurement without P-5'-P (enzymatic activion 06-06-2020 ALT No additional P-5'-P [Catalytic activity/Vol] 22 U/L 10-60 [facility] Serum or plasma albumin/glob ulin mass ratioon 06-06-2020 Albumin/Globulin [Mass ratio] 1.6 {ratio} [facility] Serum or plasma alkaline anju sphatase measurement (enzymatic activity/volume)on 06-06-2020 ALP [Catalytic activity/Vol] 107 U/L 32-92 [facility] Serum or plasma aspartate am inotransferase measurement (enzymatic activity/volume)on 06-06-2020 AST [Catalytic activity/Vol] 23 U/L 10-42 [facility] Serum or plasma calcium sammi urement (mass/volume)on 06-06-2020 Calcium [Mass/Vol] 9.7 mg/dL 8.2-10.2 [facility] Serum or plasma chloride joi surement (moles/volume)on 06-06-2020 Chloride [Moles/Vol] 101 mmol/L 95-114 [facility] Serum or plasma creatinine m easurement with calculation of estimated glomerular filtron 06-06-2020 Creatinine [Mass/Vol] 0.97 mg/dL 0.44-1.03 [facility] Serum or plasma glucose sammi urement (mass/volume)on 06-06-2020 Glucose [Mass/Vol] 80 mg/dL 70-100 [facility] Comment on above: ADA recommended refe rence rangeRandom Glucose Reference Range is dependent on time and content of last meal. Glucose of more than 200 mg/dL in a nonstressed, ambulatory subject supports the diagnosis of Diabetes Mellitus. Serum or plasma potassium me asurement (moles/volume)on 06-06-2020 Potassium [Moles/Vol] 5.1 mmol/L 3.5-5.1 [facility] Serum or plasma sodium measu rement (moles/volume)on 06-06-2020 Sodium [Moles/Vol] 136 mmol/L 136-146 [facility] Serum or plasma total biliru bin measurement (mass/volume)on 06-06-2020 Bilirubin [Mass/Vol] 0.7 mg/dL 0.3-1.2 [facility] Serum or plasma total carbon dioxide measurement (moles/volume)on 06-06-2020 CO2 [Moles/Vol] 25.1 mmol/L 22.0-30.0 [facility] Serum or plasma urea nitroge n measurement (mass/volume)on 06-06-2020 Urea nitrogen [Mass/Vol] 15 mg/dL 9- [facility] MRI KNEE RIGHT WO CONTRASTon 05-09-2020 MRI [...] by: Rogerio Mathis 05/09/20 Final result Normal [facility] tear of the posterior horn of the medial meniscus. Horizontal tear of the posterior horn and body of the lateral meniscus. [employer] Phone: EXAMINATION: MRI OF THE RIGHT KNEE [...] fracture, dislocation or avascular necrosis is seen. [employer] Phone: [place], [employer] Incoming R adiant Results From [employer] - 05/09/2020 9:03 PM EST EXAMINATION: MRI [...] horn and body of the lateral meniscus. [employer] Work Phone: Coding Summary.on 03-29-2018 Coding Summary. CODING DATE: 019 FINAL [facility] STATUS: Home ([facility]) PAYOR: Medical Waldo APC DESCRIPTION 5312 Level 2 Lower GI Procedures ADMIT DX: REASON FOR VISIT DX: R19.5 Other fecal abnormalities FINAL DX: PRINCIPAL: D12.5 Benign neoplasm of sigmoid colon SECONDARY: E78.00 Pure hypercholesterolemia, unspecified F32.9 Major depressive disorder, single episode, unspecified F17.200 Nicotine dependence, unspecified, uncomplicated PYMT PROC APC STAT DESCRIPTION DOCTOR NAME DATE 35766 4745 T Colonoscopy, flexible; Malik GUILLEN MD 03/20/2018 with removal of tumor(s), polyp(s), or other lesion(s) by snare technique 03069 Anesthesia for lower Ben Deal JR, DO [...] Saved: 03/29/2018 03:45 pm Normal [facility] Main OR Intraoperative Recor don 03-22-2018 Main OR Intraoperative Record IntraOp Document Type FT Summary Primary Physician: Malik GUILLEN MD Finalized Date/Time: 03/22/18 14:43:28 Pt. Name: LORIE ANGELIQUE Rachid /Sex: 1965 Female Med Rec #: [id number] Physician: Malik GUILLEN MD Financial #: [id number] Pt. Type: O Room/Bed: / Admit/Disch: 03/20/18 [...] to review and send charges Sixto Sellers MANAGER SWITCH Case Attendance FT Entry 1 Entry 2 Entry 3 Case Attendee Heron DUTTON, Elma GUILLEN MD, Malik Bautista RN, Zelda Role Performed Anesthesiologist Surgeon - Primary Registered Appraiser - Primary Telecommunications Network Engineer Time In 03/20/18 09:05:00 03/20/18 09:05:00 03/20/18 09:05:00 Time Out 03/20/18 09:29:00 03/20/18 09:29:00 03/20/18 09:29:00 Procedure COLONOSCOPY(.) COLONOSCOPY(.) COLONOSCOPY(.) Comments supervising Last Modified By: Michele RN, Zelda Bautista RN, Zelda Joyce RN 03/20/18 09:29:46 03/20/18 09:29:46 03/20/18 09:29:46 Entry 4 Entry 5 Case Attendee Samara Blanco [employer], Winnie Patel Role Performed Scrub - Other Scrub - Primary Time In 03/20/18 09:11:00 03/20/18 09:05:00 Time Out 03/20/18 09:29:00 03/20/18 09:29:00 Procedure COLONOSCOPY(.) COLONOSCOPY(.) Comments help in room Last Modified By: Michele MADRID, Zelda Bautista RN, Zelda 03/20/18 09:29:46 03/20/18 [...] No Time Out Elma Duffy, Given Participants Malik GUILLEN MD, Workman RN, Ab Zeldaernathy [employer]Winnie Time Out Complete 03/20/18 09:07:00 Outcomes Met? [...] polypectomy. Primary Procedure Yes Primary Surgeon Malik GUILLEN MD Start 03/20/18 09:09:00 Stop 03/20/18 09:24:00 [...] and tissue Entry 1 Skin Integrity Intact, [place], Warm, and Skin Abnormality No Dry Outcomes [...] of injury related to transfer/transport Departure From [place] FT Pre-Care Text: Transports according to individual needs. Evaluates for signs and symptoms of skin and tissue injury as a result of transfer or transport. Entry 1 Via Cart Safety Precautions Safety Strap, Side Rails Up PostOp Destination PACU Transported By Zelda Bautista RN Patient Status Stable Skin. Condition Intact, [place], Warm, and Dry Airway Maintenance Oxygen in Use? No Airway Device N/A Outcomes Met? Yes Last Modified By: Zelda Bautista RN 03/20/18 06:49:43 Post-Care Text: The patient is free from signs and symptoms of injury related to transfer/transport General Comments: REPORT GIVEN TO HR ASSISTANT / AW public relations coordinator Administration FT Pre-Care Text: Verifies allergies, administers prescribed medications and solutions, administers prescribed antibiotic therapy and immunizing agents as ordered, evaluates response to medications Administers prescribed medications and solutions Entry 1 Expiration Date Yes Outcomes Met? Yes Verified Last Modified By: Zelda Bautista RN 03/20/18 06:49:20 Post-Care Text: The patient received appropriate medication(s) safely administered during the perioperative period For Desean please see scanned medication reconcilliation form for [...] 03/20/18 09:30 Lisseth Sellers CST 03/22/18 14:43 Normal [facility] Inpatient Patient Summaryon 03-20-2018 [facility] InstructionsPERSON INFORMATION Name: ANGELQIUE MELO PHYSICIANS Admitting Physician: Malik GUILLEN MD Physician: Malik GUILLEN MD PCP: Shreyas HAWKINS, [place] Diagnosis: Colon polyp Comment: PATIENT EDUCATION INFORMATIONInstructions:[place]ell noscopy, Care After Surgery Salam (CUSTOM); Colon PolypsMedication Leaflets:Follow up:With: Address: When: Malik GUILLEN [address] [place] [id number] Business (1) Within 5 to 7 days Comments: Call for any problems. Call for followup appointment MEDICATION LISTComment: [facility] Main OR PACU I Recordon 02-26 Main OR PACU I Record PACU Phase I Document Type FT Summary Primary Physician: Malik GUILLEN MD Finalized Date/Time: 03/20/18 10:19:08 Pt. Name: ANGELIQUE MELO Rachid Beckford/Sex: 1965 Female Med Rec #: [id number] Physician: Malik GUILLEN MD Financial #: [id number] Pt. Type: O Room/Bed: / Admit/Disch: 03/20/18 [...] Joe RN 03/20/18 10:19 Normal [facility] Main OR Preoperative Recordo n 03-20-2018 Main OR Preoperative Record Holding Area Document Type FT Summary Primary Physician: Malik GUILLEN MD Finalized Date/Time: 03/20/18 08:17:50 Pt. Name: ANGELIQUE MELO/Sex: 1965 Female Med Rec #: [id number] Physician: Malik GUILLEN MD Financial #: [id number] Pt. Type: O Room/Bed: / Admit/Disch: 03/20/18 [...] Bautista RN 03/20/18 08:17 Normal [facility] Operative Reporton 8 Operative Report Date of Surgery: 03/20/2018SURGEON: Malik Guillen M.D.PREOPERATIVE DIAGNOSIS: Positive Cologuard, need for colorectal [...] [facility] well [facility].Malik Guillen M.D.lkrDictated: 03/20/2018 #[id number]: 03/20/2018 #[id number]: Linda Puga M.D. [facility] Comment on above: Result Comment: Elec tronically Signed By: Malik GUILLEN MD.br\Date and Time Signed: 03/20/18 10:23 EST [...] 06/05/2012 Document Reviewed: 05/23/2012ExitCare? Patient Information ?2014 [employer]. This information is not intended to replace advice given to you by your health care provider. Make sure you discuss any questions you have with your health care provider. [facility] Progress Note-Physicianon Protein mass conc Patient: [...] All ProblemsResolved: Polyp colon / SNOMED CT [id number] Physical Examination Intake and Output Denies significant n/v and is tolerating p.o. Vital Signs (last 24 hrs) Last Charted SBP 124 mmHg (MAR 20 09:55)DBP 78 mmHg (MAR 20 09:55)SpO2 99 % (MAR 20 09:55)Height 177.8 cm (MAR 20:)Weight 105.2 kg (MAR 20:08)BMI 33.28 kg/m2 (MAR 20:08) Pain assessment: Pain Assessment 03/20/2018 09:55 EST Pain Symptoms Self Report No, able to self report Patient Preferred Pain Tool Numeric rating Numeric Pain Scale 0 = No pain . Respiratory: Adequate air exchange with religious of preoperative function.. Cardiovascular: Cardiovascular function is stable and has returned to preoperative levels.. Neurologic: Pt has returned to preoperative baseline.. Review / Management Condition: Stable. Assessment Anesthetic outcome No anesthetic complications noted. Plan Transfer/ Discharge: Patient can be discharged from PACU when criteria met. Condition good. Normal [facility] Comment on above: Result Comment: Elec tronically [...] 97 % (MAR 20:)Height 177.8 cm (MAR 20)Weight 105.2 kg (MAR 20:)BMI 33.28 kg/m2 (MAR 20) Airway: Normal oral/pharyngeal anatomy.. Respiratory: Adequate air exchange.. Cardiovascular: Adequate perfusion and function. Review / Management Results review: No qualifying data available. Plan [place] [employer] Anesthesiologists (ASA) physical status classification: Class II. Anesthetic Preoperative Plan Anesthesia: Monitored anesthesia care and general anesthesia if required.. Anesthetic plan, risks, benefits, and alternatives discussed with the patient and/or family. Pt. and/or family present and agree to proceed as planned.. Discussed the importance of abstaining from tobacco products, and offered counseling if desired.. Normal [facility] Comment on above: Result Comment: Elec tronically Signed By: Ben Deal JR, DO.sydni\Date and Time Signed: 03/20/18 08:25 EST Vital Signs Date Time Vital Sign Value Performing Clinician Facility 12-12-2023 10:06-0400 Body mass index (BMI) [Ratio] 37.88 kg/m2 Rhoda Urrutia DO Work Phone: [facility] [employer] [facility] 12-12-2023 10:06-0400 Body weight 119.75 kg Rhoda Urrutia DO Work Phone: [facility] Comment on above: weighed in wheelchair 12-12-2023 10:06-0400 Diastolic blood pressure 73 mm[Hg] Rhoda Urrutia DO Work Phone: [facility] [employer] [facility] 12-12-2023 10:06-0400 Heart rate 83 /min Rhoda Urrutia DO Work Phone: [facility] [employer] [facility] 12-12-2023 10:06-0400 Systolic blood pressure 103 mm[Hg] Rhoda Urrutia DO Work Phone: [facility] [employer] [facility] 11-22-2023 14:07-0400 Body height 177.8 cm Gigi Erick ACCORDION REPAIRER-ORACLE BRM DEVELOPER Work Phone: [facility] 11-22-2023 14:07-0400 Body mass index (BMI) [Ratio] 26.26 kg/m2 Gigi Erick ACCORDION REPAIRER-ORACLE BRM DEVELOPER Work Phone: [facility] 11-22-2023 14:07-0400 Body weight 83.01 kg Gigi Suarez ACCORDION REPAIRER-ORACLE BRM DEVELOPER Work Phone: [facility] [employer] [facility] 11-14-2023 09:32-0400 Diastolic blood pressure 74 mm[Hg] Rhoda Urrutia DO Work Phone: [facility] [employer] [facility] 11-14-2023 09:32-0400 Heart rate 78 /min Rhoda Urrutia DO Work Phone: [facility] [employer] [facility] 11-14-2023 09:32-0400 Systolic blood pressure 98 mm[Hg] Rhoda Urrutia DO Work Phone: [facility] 11-02-2023 14:15-0400 Body height 177.8 cm Eligio Mendez MD Work Phone: [facility] 11-02-2023 14:15-0400 Body temperature 97.81 [degF] Eligio Mendez MD Work Phone: [facility] 11-02-2023 14:15-0400 Diastolic blood pressure 69 mm[Hg] Eligio Mendez MD Work Phone: [facility] 11-02-2023 14:15-0400 Heart rate 78 /min Eligio Mendez MD Work Phone: [facility] 11-02-2023 14:15-0400 Systolic blood pressure 101 mm[Hg] Eligio Mendez MD Work Phone: [facility] 09-26-2023 15:38-0400 Body height 177.8 cm [facility] [address] [place] [address] 09-26-2023 15:38-0400 Body mass index (BMI) [Ratio] 26.54 kg/m2 [facility] 09-26-2023 15:38-0400 Body temperature 98.29 [degF] [facility] [address] [place] [address] 09-26-2023 15:38-0400 Body weight 83.92 kg [facility] 09-26-2023 15:38-0400 Diastolic blood pressure 72 mm[Hg] [facility] 09-26-2023 15:38-0400 Heart rate 91 /min [facility] 09-26-2023 15:38-0400 Respiratory rate 18 /min [facility] 09-26-2023 15:38-0400 SaO2% (BldA) [Mass fraction] 97 % [facility] 09-26-2023 15:38-0400 Systolic blood pressure 103 mm[Hg] [facility] 08-25-2023 10:57-0400 Body mass index (BMI) [Ratio] 27.12 kg/m2 Jose Wright MD Work Phone: [facility] 08-25-2023 10:57-0400 Body weight 85.73 kg Jose Wright MD Work Phone: [facility] [employer] [facility] 08-25-2023 10:57-0400 Diastolic blood pressure 77 mm[Hg] Jose Wright MD Work Phone: [facility] [employer] [facility] 08-25-2023 10:57-0400 Heart rate 74 /min Jose Wright MD Work Phone: [facility] 08-25-2023 10:57-0400 Systolic blood pressure 98 mm[Hg] Jose Wright MD Work Phone: [facility] [employer] [facility] 07-07-2023 10:51-0400 Body height 177.8 cm Albino Burton MD Work Phone: [facility] 07-07-2023 10:51-0400 Body mass index (BMI) [Ratio] 27.12 kg/m2 Albino Burton MD [facility] 07-07-2023 10:51-0400 Body weight 85.73 kg Albino Burton MD Work Phone: [facility] 07-07-2023 10:51-0400 Diastolic blood pressure 66 mm[Hg] Albino Burton MD [facility] 07-07-2023 10:51-0400 Heart rate 75 /min Albino Burton MD Work [facility] 07-07-2023 10:51-0400 Systolic blood pressure 91 mm[Hg] Albino Burton MD Work [facility] 12-29-2020 10:15-0400 Body height 177.8 cm Chhaya Spivey Other [address] Other 12-29-2020 10:15-0400 Body mass index (BMI) [Ratio] 31.56 kg/m2 Chhaya Spivey Other [address] Other 12-29-2020 10:15-0400 Body temperature 98.2 [degF] Chhaya Spivey Other [address] Other 12-29-2020 10:15-0400 Body weight 99.79 kg Chhaya Spivey Other [address] Other 12-29-2020 10:15-0400 SaO2% (BldA) [Mass fraction] 97 % Chhaya Spivey Other [address] Other Encounters Encounter Date Encounter Type Care Provider Facility Start: 06-08-2024 End: 06-08-2024 Telephone encounter Eligio Mendez MD Work Phone: [facility] Start: 05-09-2024 End: 05-09-2024 Telephone encounter Marcos Mireles [facility] Start: 05-08-2024 End: 05-08-2024 ambulatory ELIGIO MENDEZ [facility] Start: 05-04-2024 End: 05-04-2024 Telephone encounter Eligio Mendez MD Work Phone: [facility] Start: 02-03-2024 End: 02-03-2024 ambulatory Ena Tran [facility] Work Phone: Start: 02-03-2024 End: 02-03-2024 Departed Referred Ena Tran RESIDENT ASSISTANT CNA-C Work Phone: [facility] Start: 12-12-2023 End: 12-12-2023 Office outpatient visit 25 minutes Rhoda Urrutia DO Work Phone: [facility] Comment on above: Bilateral carotid ar cinyd stenosis (Primary Dx); 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CMS-HCC); Aneurysm of ascending aorta without rupture (CMS-HCC); Multinodular thyroid; Kidney lesion, [place], left; Adrenal nodule (CMS-HCC) Start: 12-12-2023 End: 12-12-2023 ambulatory [facility] Start: 12-09-2023 End: 12-09-2023 ambulatory [facility] Start: 12-02-2023 End: 12-02-2023 ambulatory [facility] Start: 11-24-2023 End: 11-30-2023 Telephone encounter Mayra Ragland RN [facility] Start: 11-22-2023 End: 11-22-2023 Postop follow up visit related to original px Gigi Suarez ACCORDION REPAIRER-ORACLE BRM DEVELOPER Work Phone: [facility] Comment on above: Status post cranioto my (Primary Dx) Start: 11-22-2023 End: 11-22-2023 ambulatory ALEX [facility] Start: 11-14-2023 End: 11-14-2023 Office outpatient visit 15 minutes [facility] DO Work Phone: [facility] Comment on above: Bilateral carotid ar cindy stenosis (Primary Dx); 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CMS-HCC); Claudication ([facility]) Start: 11-14-2023 End: 11-14-2023 ambulatory [facility] Start: 11-02-2023 End: 11-02-2023 Office outpatient visit 25 minutes Eligio Mendez MD Work Phone: [facility] Comment on above: Essential thrombocyt osis (CMS-HCC) (Primary Dx); JAK2 [id number] mutation; 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CMS-HCC) Start: 11-02-2023 End: 11-02-2023 [facility] [place] [facility] Start: 10-26-2023 End: 10-26-2023 Orders Only Eligio Mendez MD Work Phone: [facility] Start: 10-25-2023 End: 10-25-2023 Postop follow up visit related to original px [facility] Nurse [facility] Comment on above: Skull defect (Primar y Dx) Start: 10-25-2023 ambulatory [facility] Start: 10-13-2023 End: 10-13-2023 Evaluation and management of inpatient [facility] Start: 10-10-2023 End: 10-12-2023 Evaluation and management of inpatient [facility] Start: 10-05-2023 End: 10-05-2023 Telephone encounter [facility] Comment on above: antibiotic Start: 10-05-2023 End: 10-05-2023 ambulatory [facility] Start: 10-02-2023 End: 10-02-2023 ambulatory [facility] Start: 09-30-2023 End: 09-30-2023 [facility] Start: 09-26-2023 End: 09-26-2023 Patient encounter procedure [facility] Comment on above: Cerebrovascular acci dent (CVA), unspecified mechanism (CMS- HCC) (Primary Dx); Skull defect; Pre-op testing Start: 09-26-2023 End: 09-26-2023 Patient encounter status [facility] Start: 09-26-2023 Encounter for other preprocedural examination [facility] Start: 09-26-2023 End: 09-26-2023 ambulatory [facility] Comment on above: Aortic thrombus (CMS -HCC) (Primary Dx) Start: 09-19-2023 End: 09-19-2023 ambulatory [facility] Start: 08-29-2023 End: 08-29-2023 Telephone encounter Eligio Mendez MD Work Phone: [facility] Start: 08-25-2023 End: 08-25-2023 Office outpatient visit 25 minutes Jose Wright MD Work Phone: [facility] Comment on above: 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 (Primary Dx); JAK2 positive polycythemia vera ([facility]-HCC); Aortic thrombus ([facility]-HCC) Start: 08-25-2023 End: 08-25-2023 ambulatory [facility] Start: 07-25-2023 End: 07-25-2023 Telephone encounter Lilliam Huynh MA [facility] Comment on above: status of pre-op lab s, EKG, Chest Xray Start: 07-25-2023 End: 07-25-2023 ambulatory [facility] Start: 07-25-2023 Encounter for other preprocedural examination [facility] Start: 07-21-2023 End: 07-21-2023 ambulatory [facility] Start: 07-14-2023 End: 07-15-2023 Telephone encounter Ruby Gonzales [facility] Comment on above: Heparin Start: 07-07-2023 End: 07-07-2023 Office outpatient visit 25 minutes Albino Burton MD Work Phone: [facility] Comment on above: Cerebrovascular acci dent (CVA), unspecified mechanism ([facility] HCC) (Primary Dx); Skull defect Start: 07-07-2023 End: 07-07-2023 ambulatory [facility] Start: 07-06-2023 End: 07-11-2023 Telephone encounter Cassidy Guerra [facility] Comment on above: reschedule appointme nt Start: 06-10-2023 End: 06-10-2023 ambulatory [facility] Start: 05-23-2023 Orders Only Valentin Velarde MD Work Phone: [facility] Start: 04-21-2023 End: 04-21-2023 ambulatory [facility] Start: 03-02-2023 Telephone encounter Татьяна Osborn [facility] Comment on above: Post-op Craniotomy Start: 08-02-2022 End: 08-02-[address] ALEX PRITCHETT . Facility:[facility] Start: 03-26-2022 Encounter for genera l adult medical examination without abnormal findings DR ALEX PRITCHETT . [facility] Start: 03-24-2022 End: 03-25-[address] ALEX PRITCHETT . Facility:[facility] Start: 03-24-2022 End: 03-25-2022 Encounter for general adult medical examination without abnormal findings DR ALEX PRITCHETT . Facility:[facility] Start: 02-22-2022 End: 02-23-[address] ALEX PRITCHETT . Facility:[facility] Start: 12-29-2020 Office outpatient vi sit 15 minutes Chhaya Spivey [facility] Start: 06-09-2020 End: 06-09-2020 Patient encounter procedure Alex Pritchett -Pre-Surgical Testing Start: 06-06-2020 End: 06-06-2020 Patient encounter procedure Alex Pritchett -Pre-Surgical Testing Start: 05-08-2020 End: 05-11-2020 Patient encounter procedure ALEX PRITCHETT [facility] Start: 05-08-2020 End: 05-10-2020 Subsequent hospital visit by physician [facility] M[facility] Rm 119 [facility] MRI Comment on above: Right knee pain, uns pecified chronicity Start: 03-20-2018 End: 03-21-2018 Patient encounter procedure Malik Guillen Facility:[facility] Procedures Date Procedure Procedure Detail Performing Clinician Start: 10-10-2023 Adult depression screening assessment [facility] Nurse Start: 09-26-2023 Ecg routine ecg w/le ast 12 lds trcg only w/o i&r Pradip Bee MD Work Phone: Start: 08-25-2023 Adult depression screening assessment Eligio Mendez MD Work Phone: Start: 07-07-2023 Follow-up visit Follow-up ALBINO BURTON Start: 05-08-2020 Mri any jt lower ext rem w/o contrast matrl Alex Pritchett Work Phone: Plan of Treatment Date Care Activity Detail Author Start: 12-22-2024 Tobacco Screening [facility] Start: 12-11-2024 End: 12-11-2024 Patient encounter procedure 12/11/2024 3:30 PM EDT Appointment [facility] [address] [place] [address] Ghada Rhoda Clarissa, DO [address] [facility] [address] [place] [id number] [facility] Start: 12-11-2024 Adult BMI Screening Adult [facility]ening [facility] Start: 12-11-2024 End: 12-11-2024 CT Chest WO and CT angiogram Coronary arteries W contrast IV CT angiogram chest Imaging Routine 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CMS-HCC) Expected: 12/11/2024 (Approximate), Expires: 12/11/2024 [facility] Comment on above: Expected: 12/11/2024 (Approximate), Expi res: 12/11/2024 Start: 12-11-2024 End: 12-11-2024 CTA Abdominal vessels and Pelvis vessels W contrast IV CT angiogram abdomen and pelvis Imaging Routine 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CMS-HCC) Expected: 12/11/2024 (Approximate), Expires: 12/11/2024 [facility] [employer] [facility] Comment on above: Expected: 12/11/2024 (Approximate), Expi res: 12/11/2024 Start: 12-11-2024 Tobacco Screening Tobacco Screening [facility] Start: 12-11-2024 End: 12-11-2024 US Carotid arteries - bilateral Vas carotid duplex bilateral Vascular Ultrasound Routine Bilateral carotid artery stenosis Expected: 12/11/2024 (Approximate), Expires: 12/11/2024 [email or web address] Work Phone: Comment on above: Expected: 12/11/2024 (Approximate), Expi res: 12/11/2024 Start: 11-21-2024 Adult BMI Screening Adult [facility]ening [facility] Start: 11-21-2024 Tobacco Screening Tobacco [facility]ening [facility] Start: 11-13-2024 Tobacco Screening [facility] Start: 11-01-2024 Tobacco Screening [facility]ening [facility] Start: 10-10-2024 Adult BMI Screening Adult BMI Screening [facility] Start: 10-09-2024 Depression Screening [facility]ening [facility] Start: 10-09-2024 Tobacco Screening Tobacco [facility]ening [facility] Start: 09-25-2024 Adult BMI Screening Adult BMI Screening [facility] Start: 09-25-2024 Tobacco Screening Tobacco [facility]ening [facility] Start: 08-24-2024 Adult BMI Screening Adult BMI Screening [facility] Start: 08-24-2024 Depression Screening Depression Screening [facility] Start: 08-24-2024 Tobacco Screening Tobacco Screening [facility] Start: 07-25-2024 End: 07-25-2024 Patient encounter procedure 07/25/2024 2:30 PM EDT Office Visit [facility] [address] [place] [phone] Eligio Mendez MD [address] [place] [address] [facility] Start: 07-06-2024 Adult BMI Screening Adult BMI Screening [facility] Start: 05-09-2024 End: 05-09-2024 Patient encounter procedure [facility] Start: 03-10-2024 Tobacco Screening Tobacco Screening [facility] Start: 03-07-2024 Adult BMI Screening Adult BMI Screening [facility] Start: 01-19-2024 End: 01-19-2024 Patient encounter procedure 01/19/2024 11:30 AM EDT Office Visit [facility] [address] [place] [phone] [facility] Start: 12-12-2023 End: 12-12-2023 Patient encounter procedure 12/12/2023 10:00 AM EDT Office Visit [facility] [place] [address] Rhoda Urrutia DO [address] [facility] [address] [place] [address] [facility] Start: 12-02-2023 End: 12-02-2023 Patient encounter procedure 12/02/2023 3:30 PM EDT Appointment [facility] [address] [place] [phone] Rhoda Urrutia, DO [address] [employer] [facility] [address] [place] [address] [facility] Start: 11-27-2023 Influenza vaccination Influenza Vaccine [facility] Start: 11-24-2023 End: 11-24-2023 Patient encounter procedure [facility] Start: 11-22-2023 End: 11-22-2023 Patient encounter procedure 11/22/2023 2:50 PM EDT Office Visit [facility] [address] [place] [phone] Albino Burton MD [address] [place] [address] [address] [place] [address] [facility] Start: 11-14-2023 End: 11-13-2024 CT Chest WO and CT angiogram Coronary arteries W contrast IV CT angiogram chest Imaging Routine 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CMS-HCC) Expected: 11/14/2023, Expires: 11/13/2024 [facility] Work Phone: Comment on above: Expected: 11/14/2023, Expires: Start: 11-14-2023 End: 11-13-2024 CTA Abdominal vessels and Pelvis vessels W contrast IV CT angiogram abdomen and pelvis Imaging Routine 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CMS-HCC) Expected: 11/14/2023, Expires: 11/13/2024 [facility] Comment on above: Expected: 11/14/2023, Expires: Start: 11-14-2023 End: 11-13-2024 US Carotid arteries - bilateral Vas carotid duplex bilateral Vascular Ultrasound Routine Bilateral carotid artery stenosis Expected: 11/14/2023, Expires: 11/13/2024 [facility] Comment on above: Expected: 11/14/2023, Expires: 5 Start: 11-14-2023 End: 05-16-2025 US.doppler Extremity arteries - bilateral for physiologic artery study Vas art doppler lwr bilat mult lev/PVR Vascular Ultrasound Routine Claudication ([facility]) Expected: 11/14/2023, Expires: 05/16/2025 [facility] Comment on above: Expected: 11/14/2023, Expires: Start: 11-02-2023 End: 11-02-2023 Patient encounter procedure 11/02/2023 3:00 PM EDT Office Visit [facility] [address] [place] [phone] Eligio Mendez MD [address] [place] [address] [facility] Start: 10-25-2023 End: 10-25-2023 Admission to same day surgery center 10/25/2023 11:30 AM EDT Support Visit [facility] [address] [place] [phone] [facility] Start: 10-20-2023 End: 10-20-2023 Patient encounter procedure 10/20/2023 9:30 AM EDT Appointment [facility] [address] [place] [address] [facility] Start: 10-10-2023 End: 10-10-2023 Admission to same day surgery center [facility] Comment on above: CRANIOPLASTY / RIGHT AUTOLOGOUS CRANIOPL ASTY Start: 10-10-2023 End: 10-10-2023 CR[facility]LASTY [facility] Start: 10-10-2023 Subsequent hospital visit by physician [facility] Start: 09-26-2023 End: 09-26-2023 Patient encounter procedure 09/26/2023 2:45 PM EDT Procedure [facility] [address] [phone] [facility] Start: 08-25-2023 End: 08-25-2023 Patient encounter procedure 08/25/2023 11:00 AM EDT [facility] Visit [facility] [address] [place] [phone] [facility] Start: 08-18-2023 End: 08-18-2023 Patient encounter procedure 08/18/2023 3:00 PM EDT Office Visit [facility] [address] [place] [phone] Albino Burton MD [address] [place] [phone] [facility] Start: 07-27-2023 End: 07-27-2023 Admission to same day surgery center 07/27/2023 9:30 AM EDT - 07/27/2023 12:00 PM EDT Surgery [address] [phone] Albino Burton MD [address] [place] [phone] CRANIOPLASTY / RIGHT AUTOLOGOUS CRANIOPLASTY [facility] Comment on above: CRANIOPLASTY / RIGHT AUTOLOGOUS CRANIOPL ASTY Start: 07-27-2023 End: 07-27-2023 CRANIOPLASTY CRANIOPLASTY Cerebrovascular accident (CVA), unspecified mechanism ([facility]-HCC) Skull defect 07/27/2023 9:30 AM EDT [facility] Start: 07-27-2023 Subsequent hospital visit by physician 07/27/2023 9:30 AM EDT Hospital Encounter [address] [place] [phone] Albino Burton MD [address] [place] [address] [facility] Start: 07-21-2023 End: 07-21-2023 Patient encounter procedure 07/21/2023 9:30 AM EDT Appointment [facility] [address] [facility] [address] [place] [address] [facility] Start: 07-07-2023 End: 07-07-2023 Patient encounter procedure [facility] Start: 06-10-2023 End: 06-10-2023 Patient encounter procedure 06/10/2023 10:00 AM EDT Appointment [facility] [address] [place] [phone] [facility] Start: 04-21-2023 End: 04-21-2023 Patient encounter procedure 04/21/2023 9:30 AM EST Appointment [facility] Neuro[facility]iology 0 [facility] [address] [place] [address] [facility] Neuro[facility] Start: 11-26-2022 Influenza vaccination Influenza Vaccine [facility] Start: 11-27-2019 Influenza vaccination Flu vaccine (#1) [employer] Phone: Start: 06-27-2013 Screening for malignant neoplasm of breast Breast cancer screen [employer] Phone: Start: 06-27-2013 Screening for malignant neoplasm of colon Colon cancer screen colonoscopy [employer] Phone: Start: 06-27-2013 Shingles Vaccine (1 of 2) Shingles Vaccine (1 of 2) [employer] Phone: Start: 2003 Lipid panel Lipid screen [employer] Phone: Start: 06-27-1984 Screening for malignant neoplasm of cervix Cervical cancer screen [employer] Phone: Start: 06-27-1982 Administration of varicella zoster vaccine Zoster (Shingles) Vaccine (1 of 2) [facility] Start: 06-27-1982 DTaP,Tdap and Td Vaccines (1 - Tdap) DTaP,Tdap and Td Vaccines (1 - Tdap) [facility] Start: 06-27-1982 DTaP/Tdap/Td vaccine (1 - Tdap) DTaP/Tdap/Td vaccine (1 - Tdap) [employer] Phone: Start: 06-27-1981 Adult BMI Follow Up Plan [facility] Start: 06-27-1978 HIV screening HIV screen [employer] Phone: Start: 1975 Depression Screening Depression Screening [facility] Start: 1963 Hepatitis C screening Hepatitis C screen [employer] Phone: Start: 1963 Tobacco Counseling [facility] [employer] [facility] End: 10-27-2023 Basic metabolic 2000 panel - Serum or Plasma Basic Metabolic Panel Lab Routine Aortic thrombus ([facility]) 1 for 1 Occurrences starting 09/26/2023 until 10/27/2023 [facility] Comment on above: 1 for 1 Occurrences starting 09/26/2023 until 10/27/2023 End: 03-12-2024 Botox Injection For Cervical Dystonia Botox Injection For Cervical Dystonia Neurology Routine Every 3 Months for 4 Occurrences starting 05/23/2023 until 03/12/2024 [employer] Phone: Comment on above: Every 3 Months for 4 Occurrences startin g 05/23/2023 until 03/12/2024 End: 10-10-2023 CBC W Auto Differential panel - Blood CBC auto differential Lab Routine Aortic thrombus ([facility]) 1 for 1 Occurrences starting 09/26/2023 until 10/10/2023 [facility] Phone: Comment on above: 1 for 1 Occurrences starting 09/26/2023 until 10/10/2023 End: 03-27-2025 CBC W Auto Differential panel - Blood CBC auto differential Lab Routine Essential thrombocytosis ([facility]) JAK2 V617F mutation every 1-3 months for 12 Occurrences starting 11/02/2023 until 03/27/2025 [employer] Phone: Comment on above: every 1-3 months for 12 Occurrences irina patino 11/02/2023 until 03/27/2025 End: 03-27-2025 Comprehensive metabolic 2000 panel - Serum or Plasma Comprehensive metabolic panel Lab Routine Essential thrombocytosis ([facility]) JAK2 V617F mutation every 6 months for 12 Occurrences starting 11/02/2023 until 03/27/2025 [facility] Comment on above: every 6 months for 12 Occurrences starti ng 11/02/2023 until 03/27/2025 End: 12-11-2024 Creatinine includes GFR, serum Creatinine includes GFR, serum Lab Routine 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[facility]) 1 Occurrences starting 12/12/2023 until 12/11/2024 [facility] Comment on above: 1 Occurrences starting 12/12/2023 until 12/11/2024 Payers Date Payer Category Payer Self-pay [id number] 2018 Worker's Comp Other Managed Care [employer] [id number] 2018 Worker's Comp, Other (unspecified) WORKER'S COMPENSATION [id number] 2018 Worker's Compensation WORKER'S C OMPENSATION WORKER'S [id number] ONLY [id number] 2018-Present [address] [id number]. [id number] 2018 Commercial Managed C [facility] [employer] [id number] [id number] 2018 Unknown 1965 Unknown [id number] ..840.1.106000.3.579. 2.176 1963 Unknown [id number] .840.1.730817.3.579. 2.593 1963 Unknown [id number] 2..840.1.458968.3.579. 2.593 1963 Unknown [id number] 2.16.840.1.038824.3.579. 2.593 1963 Unknown [id number] 2..840.1.342976.3.579. 2.72 1963 Unknown [id number] 2.840.1.693379.3.579. 2.1285 1963 Unknown [id number] 2.840.1.004382.3.579. 2.1285 1963 Unknown [id number] 2.840.1.936522.3.579. 2.1285 1963 Unknown [id number] 2.840.1.328687.3.579. 2.1285 1963 Unknown [id number] 2..1.593569.3.579. 2.1285 1963 Unknown [id number] 2.0.1.687229.3.579. 2.1285 1963 Unknown [id number] 2..1.745878.3.579. 2.1285 1963 Unknown [id number] 2..1.703185.3.579. 2.1285 1963 Unknown [id number] 2..1.261978.3.579. 2.1285 1963 Unknown [id number] 2.0.1.482126.3.579. 2.1285 1963 Unknown [id number] 2.0.1.267576.3.579. 2.1285 1963 Unknown [id number] 2.0.1.805494.3.579. 2.1285 1963 Unknown [id number] 2.0.1.839556.3.579. 2.1285 1963 Unknown [id number] 2.840.1.407219.3.579. 2.1285 1963 Unknown [id number] 2.840.1.176310.3.579. 2.1285 1963 Unknown [id number] 2.840.1.337140.3.579. 2.1286 1963 Unknown [id number] 2.16.840.1.553690.3.579. 2.1285 1963 Unknown [id number] 2.16.840.1.821454.3.579. 2.1285 1963 Unknown [id number] 2.16.840.1.204260.3.579. 2.1285 1963 Unknown [id number] 2.16.840.1.909011.3.579. 2.1285 1963 Unknown [id number] 2.16.840.1.576133.3.579. 2.1285 1963 Unknown [id number] 2.16.840.1.588789.3.579. 2.1285 1963 Unknown [id number] 2.16840.1.879911.3.579. 2.1285 1959 Unknown [id number] Unknown [id number] 2.16.840.1.113331.3.579. 2.531 Social History Date Type Detail Facility Tobacco smoking stat [facility] Unknown if ever smoked [employer] Phone: Start: 1965 Sex Assigned At Not on file [employer] Phone: Exposure to SARS-CoV -2 (event) Not sure [employer] Phone: Start: 03-28-1979 End: 03-28-2022 Tobacco smoking status NHIS Smoker (finding) [facility] Start: 1965 Sex Assigned At Female [facility] Start: 05-08-2020 End: 10-10-2023 Sex Assigned At [facility] Other Start: 10-31-2014 End: 02-04-2024 Sex Female (finding) [facility] Start: 09-26-2023 Tobacco smoking stat [facility] Ex-smoker [facility] Start: 03-28-1979 End: 03-28-2022 History of tobacco use Cigarette Smoker [facility] Start: 05-08-2020 End: 09-26-2023 Cigarettes smoked current (pack per day) - Reported 1.5 [facility] Start: 09-26-2023 Tobacco use and exposure Former smokeless tobacco user [facility] Start: 11-22-2023 End: 12-23-2023 Alcoholic beverage intake Ex-drinker (finding) [facility] Has the Who is [employer], or [employer] threatened to shut off services in your home in past 12Mo No [facility] How often to you hav e a drink containing alcohol? Monthly or less [facility] How many standard drinks containing alcohol do you have on a typical day? 1 or 2 [facility] How often do you hav e 6 or more drinks on 1 occasion? Never [facility] Adolescent depressio n screening assessment 0 [facility] Start: 09-26-2023 Tobacco Comment VAP [facility] Start: 01-12-2019 Alcohol Comment once in a great whil e [facility] Start: 02-24-2023 Tobacco smoking stat us SDIS Smokes tobacco daily [facility] Start: 02-24-2023 Tobacco use and exposure User of smokeless tobacco [facility] Start: 03-10-2023 End: 08-25-2023 Alcoholic beverage intake Current drinker of alcohol (finding) [facility] Medical Equipment Procedure Code Equipment Code Equipment Origin al Text Equipment Identifier Dates Gft Bn Ricardo Cnc 15cc Frzdr - [id number] - [id number] Start: 01-12-2019 Patch Dura 16x10 cm Drgrd Bvn Pricrd Strl Lf - [id number] Start: 12-26-2022 Plt Bn 41mm +20d Oblq L 3 - Sna - [id number] Start: 01-12-2019 Plate Bn 12mm 2 Hl Lp Bar Tab Unv Neuro Ii Crnmxf Ti Ns 1.5 - [id number] Start: 10-10-2023 Plate Bn 14mmx.5 mm Lp Bur Hl Cvr Tab Mod Unv Neuro Ii Crnfcl - [id number] Start: 10-10-2023 Scr Bn 16mm 2.4m m Va Lck St Rpl .116 - Sna - [id number] Start: 01-12-2019 Scr Bn 20mm 2.4m m [facility] L[facility] Rpl 210.120 - Sna - [id number] Start: 01-12-2019 Scr Bn 22mm 2.4m m [facility] L[facility] Rpl 210.122 - Sna - [id number] Start: 01-12-2019 Scr Bn Ricardo 2.4m m 16mm Strdrv - Sna - [id number] Start: 01-12-2019 Screw Bn 4mm 1.5 mm Slf Drl Xpn Crnmxf Strl Must Order In Multiples Of 5ea - [id number] Start: 10-10-2023 Goals Date Patient Goal Desired Activity /State Personal health goal Comment on above: Formatting of this n ote might be different from the original. Evaluation of progress towards goal: Spouse stated he is planning for patient to return home with home care. Clinical Notes 12-29-2020 to 06-08-2024 Telephone Encounter - Ivon Ingram - 06/08/2024 2:55 PM EDTTelephone Encounter - Ivon Ingram - 06/08/2024 2:55 PM EDTTelephone Encounter - Marcos Mireles [facility] - 05/09/2024 3:19 PM ESTPatient Instructions Note Date & Type Note Facility 06-08-2024 Miscellaneous Notes PT's spouse called to confirm pt's appt on 07/25 at 2:30 pm, labs are not needed prior. PT's spouse confirmed understanding documented in this encounter [facility] 06-08-2024 Telephone encounter Note PT's spouse called to confirm pt's appt on 07/25 at 2:30 pm, labs are not needed prior. PT's spouse confirmed understanding [facility] 05-09-2024 Miscellaneous Notes Inez called into the office and left a voice mail that Angelique has an bladder infection and would like to reschedule her appointment from today that was missed. Pin Cleaner left a message on Inez's voice mail to call the office. No further action required by clinical writer at this time. documented in this encounter [facility] 05-09-2024 Telephone encounter Note Inez called into the office and left a voice mail that Angelique has an bladder infection and would like to reschedule her appointment from today that was missed. Pin Cleaner left a message on Inez's voice mail to call the office. No further action required by clinical writer at this time. [facility] 05-04-2024 Miscellaneous Notes Called pt and the number is linked to their spouse. PT's spouse confirmed appt and they would complete labs prior documented in this encounter [facility] 05-04-2024 Telephone encounter Note Called pt and the number is linked to their spouse. PT's spouse confirmed appt and they would complete labs prior [facility] 12-12-2023 History of Present illness Narrative Images from the original note were not included. 58 y.o. 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 10/10/2023: cranial plate replaced. States since that time they have not had any further f/u or evaluation of aortic thrombus. Pt denies any LE pain. Nonambulatory. Denies pedal wounds. -Following w/ Dr. Mendez for JAK2 positive myeloproliferative disorder. Currently on lovenox w/ plans to DC and transition to ASA. CTA chest, abd/pelvis and carotid duplex ordered. 12/12/23: Pt presents to office w/ her who was present for entire visit. Pt w/ limited speech - provided history and answered questions. Denies any recurrent LE discoloration, pain. Does note difficulty in balancing constipation, stool softeners, and subsequent diarrhea. Lovenox DC. Continues on ASA. Chief Complaint Patient presents with Follow-up Carotid Artery Disease Testing done on legs and carotids. CT of the chest done also. 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 (CMS-HCC) BP 103/73 Pulse 83 Wt 119.7 kg (264 lb) Comment: weighed in wheelchair BMI 37.88 kg/m Past Medical History: Diagnosis Date Alteration in bowel elimination: incontinence Anxiety Chronic constipation CVA (cerebral vascular accident) (CMS-HCC) Difficult speech, left side weakness Dental disease Upper full and lower partial GERD (gastroesophageal reflux disease) Head injury Hyperlipidemia Hypertension JAK2 V617F mutation Memory loss Short term Myeloproliferative disorder (CMS-HCC) Visual impairment Glasses Past Surgical History: Procedure Laterality Date CARPAL TUNNEL RELEASE Bilateral CRANIOPLASTY / RIGHT AUTOLOGOUS CRANIOPLASTY Right 10/10/2023 Performed by Albino Burton MD at [facility] ESOPHAGOGASTRODUODENOSCOPY INSERTION PEG TUBE N/A 01/06/2023 Performed by Cam Miller MD at [facility] FOOT SURGERY HYSTERECTOMY ORIF WRIST WITH BONE GRAFT Left 01/12/2019 Performed by Philip Olsen MD at [facility] PEG TUBE REMOVAL 07/20/2023 RIGHT SIDE CRANIOTOMY EVACUATION HEMATOMA/CRAINECTOMY/EVD INSERTION Right 12/26/2022 Performed by Albino Burton MD at [facility] TRACHEOSTOMY N/A 01/06/2023 Performed by Cam Miller MD at [facility] TRACHEOSTOMY CLOSURE 07/21/2023 Physical Exam: Physical Exam Vitals and nursing note reviewed. Constitutional: Appearance: Normal appearance. HENT: Head: Normocephalic and atraumatic. Pulmonary: Effort: Pulmonary effort is normal. Musculoskeletal: General: Normal range of motion. Comments: Moving all ext equally Skin: General: Skin is warm and dry. Neurological: General: No focal deficit present. Mental Status: She is alert and oriented to person, place, and time. Psychiatric: Attention and Perception: Attention normal. Mood and Affect: Mood normal. Speech: Speech normal. Behavior: Behavior is cooperative. Testing Reviewed: CBC with Differential: Lab Results Component Value Date WBC 7.0 10/12/2023 HGB 9.5 (L) 10/12/2023 HCT 27.9 (L) 10/12/2023 PLT 200 10/12/2023 MCV 118 (H) 10/12/2023 MCH 40.3 (H) 10/12/2023 MCHC 34.1 10/12/2023 RDW 14.3 10/12/2023 BMP: Lab Results Component Value Date SODIUM 139 10/12/2023 K 3.6 10/12/2023 CL 105 10/12/2023 CO2 27 10/12/2023 BUN 15 10/12/2023 CREATININE 0.50 10/12/2023 EGFR >90 10/12/2023 GLU 99 10/12/2023 GLU 133 (H) 10/10/2023 BNP: Lab Results Component Value Date BNP 58 12/26/2022 Troponin: Lab Results Component Value Date TROPONINI 0.03 12/26/2022 HgBA1c: Lab Results Component Value Date HGBA1C 5.6 12/27/2022 Lipid Panel: Lab Results Component Value Date TRIG 169 (H) 12/27/2022 12/06/23: CTA abd/pelvis 12/06/23: CTA chest Assessment: Encounter Diagnoses Name Primary? Bilateral carotid artery stenosis Yes 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CMS-HCC) Aneurysm of ascending aorta without rupture (CMS-HCC) Multinodular thyroid Kidney lesion, lytton, left Adrenal nodule (CMS-HCC) Angelique was seen today for follow-up and carotid artery disease. Diagnoses and all orders for this visit: Bilateral carotid artery stenosis - Vas carotid duplex bilateral; Future 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CMS-HCC) - CT angiogram chest; Future - Creatinine includes GFR, serum; Future - CT angiogram abdomen and pelvis; Future Aneurysm of ascending aorta without rupture (CMS-HCC) Multinodular thyroid Kidney lesion, lytton, left Adrenal nodule (CMS-HCC) Plan of care: Please note that total time spent was 30 minutes: Including but not limited to: Preparing to see the patient (e.g., review of tests) Obtaining and/or reviewing separately obtained history Performing a medically appropriate examination and evaluation Counseling and educating the patient/family/caregiver Ordering medications, tests, or procedures Documenting visit details Angelique was seen today for follow-up and carotid artery disease. Diagnoses and all orders for this visit: Bilateral carotid artery stenosis - Vas carotid duplex bilateral; Future 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CMS-HCC) - CT angiogram chest; Future - Creatinine includes GFR, serum; Future - CT angiogram abdomen and pelvis; Future Aneurysm of ascending aorta without rupture (CMS-HCC) Multinodular thyroid Kidney lesion, lytton, left Adrenal nodule (CMS-HCC) Angelique Melo is a 58 y.o. White or female with h/o JAK2 positive myeloproliferative disorder and admission 12/2022 w/ descending aortic thrombus with distal embolization including renal/splenic infarcts and leg ischemia of bilateral feet followed by IPH and CVA w/ subsequent aphasia and L sided paralysis. Aortic thrombus: Testing Summary: 12/06/23 - CTA chest, abd and pelvis: resolution of previous thrombus. +moderate aortic atherosclerotic disease 12/09/23 - VAZQUEZ/PVR:bilat - normal at rest Surveillance plan: repeat CTA chest/bd/pelvis in 1 year to monitor for progression of atherosclerotic disease (and ascending aortic aneurysm). Ascending aortic aneurysm: CTA chest 11/15/23 - 4.1cm AscAA Surveillance plan: yearly CTA chest to monitor for aneurysmal progression. Next due 10/2024 Asymptomatic carotid artery disease: US 12/09/23 - bilat <50% ICA stenosis No indication for surgical intervention unless symptomatic w/ >50% stenosis or asymptomatic w/ disease progression >70-80% Continue w/ medical mgmt Surveillance plan: repeat carotid duplex yearly to monitor for disease progression. Next due 10/2024. Incidental CT findings: Multi-nodular thyroid: encouraged to f/u w/ PCP to discuss thyroid US and thyroid function studie L kidney lesion: f/u w/ PCP to discuss ordering MR abdomen or CT abdomen pelvis with renal mass protocol per radiology recommendations. R adrenal nodule: f/u w/ PCP to discuss labs to eval functional status Stool ball/constipation: f/u w/ PCP to discuss symptoms and potential referral to GI. Given h/o CVA w/ paralysis may warrant laxative and stimulant. Medical mgmt: Anti-platelet: ASA Statin: zocor Return to clinic in 1 year after CTA chest, abd, pelvis and carotid duplex completed to review results and discuss further plan of care. SIGNATURE: Rhoda Urrutia DO CC: MD Shreyas ROMANO Douglas M, MD documented in this encounter [facility] 11-24-2023 Miscellaneous Notes Per November 2023 recall, patient is due for a follow up with Vascular fellow. Please call to schedule. Spoke with inez and scheduled appt documented in this encounter [facility] 11-24-2023 Telephone encounter Note Per November 2023 recall, patient is due for a follow up with Vascular fellow. Please call to schedule. [facility] 11-24-2023 Telephone encounter Note Spoke with inez and scheduled appt [facility] 11-22-2023 History of Present illness Narrative Images from the original note were not included. [facility] [address] [place] [address], [address] [place] [id number] * CHART NOTE ? 11/22/2023 Patient: Angelique Melo 1965 [id number] Nurse Practitioner: Gigi Suarez CNP Physician: Albino Burton MD, FAANS IMPRESSION / PLAN 58 y.o. female doing very well post-operatively. Continue with therapies. Refer to neurology so she can re-establish care for Botox treatment. HISTORY OF PRESENT ILLNESS 58 y.o. female presents to the clinic as a post-op S/P cranioplasty performed on 10-10-2023. Angelique continues to have some problems with peripheral vision. She has home PT, OT, and speech therapy with some improvement. Overall she is doing very well. Denies headaches, stroke symptoms, and seizure activity. Presents in a wheelchair. SOCIAL HISTORY Social History Socioeconomic History Marital status: Spouse name: Not on file Number of children: Not on file Years of education: Not on file Highest education level: Not on file Occupational History Not on file Tobacco Use Smoking status: Former Current packs/day: 0.00 Average packs/day: 1.5 packs/day for 43.0 years (64.5 ttl pk-yrs) Types: Cigarettes Start date: 1979 Quit date: 2022 Years since quittin.6 Smokeless tobacco: Former Tobacco comments: VAP Vaping Use Vaping status: Former Substance and Sexual Activity Alcohol use: Not Currently Comment: once in a great while Drug use: Not Currently Types: Marijuana Sexual activity: Defer Other Topics Concern Not on file Social History Narrative Not on file Social Determinants of Health Financial Resource Strain: Not on file Food Insecurity: No Food Insecurity (11/02/2023) Hunger Screening Food Insecurity - Worry: Never True Food Insecurity - Inability: Never True Transportation Needs: No Transportation Needs (10/10/2023) PRAPARE - Transportation Lack of Transportation (Medical): No Lack of Transportation (Non-Medical): No Physical Activity: Not on file Stress: Not on file Social Connections: Not on file Interpersonal Safety: Not At Risk (10/10/2023) Humiliation, Afraid, Rape, and Kick questionnaire Fear of Current or Ex-Partner: No Emotionally Abused: No Physically Abused: No Sexually Abused: No Housing Instability: Low Risk (10/10/2023) Housing Instability Housing Instability: No REVIEW OF SYSTEMS ROS Positive Findings: Negative otherwise noted in the HPI PHYSICAL EXAMINATION Alert Oriented CN 2-12 intact No nystagmus No drift Weakness of the RUE and LLE - chronic/can not move No pathological reflex No Cerebellar signs Intact sensations The surgical wound is well approximated and well healed without signs or symptoms of infection. There is no redness, edema or drainage. DIAGNOSTIC CT brain 10-11-2023 IMPRESSION: * Status post right-sided cranioplasty. * Small amount of right-sided extra-axial and likely subcortical intraparenchymal hemorrhage in the right frontal region. * Redemonstration of areas of low-attenuation within the right cerebral hemisphere involving the basal ganglia communicating with the right lateral ventricle, related to remote process. * No midline shift or evidence of ventricular outflow obstruction. I interpreted the imaging studies independently and critical findings were anotated for the patient. Electronically Signed By: Gigi Suarez CNP in conjunction with Albino Burton MD This note was created with the assistance of a speech recognition program with the goal of generating a timely record of the patient encounter. Inadvertent computerized transit specialist errors related to syntax, spelling, homophones, and/or inaudibility may be present. Scribe Statement: Scribed for and in the presence of Albino Burton MD by Zaki Miller. Provider Statement: I, Albino Burton MD personally performed the services described in the documentation, as scribed by Zaki Miller in my presence, and it is both accurate and complete ANDREA Perez 11/22/23 1555 [facility] Instructions Bing Lebron - 11/22/2023 2:50 PM EDT Patient seen today by Dr. Burton Referral to Neurology Follow up in 1 year KM [facility] History of Present illness Narrative Images from the original note were not included. 58 y.o. 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 Pt presents to office w/ her who was present for entire visit. Pt w/ limited speech - provided history and answered questions. states Dec 2022 admission for distal embolization complicated w/ IPH/CVA and resulted in paralysis. 10/10/2023: cranial plate replaced. States since that time they have not had any further f/u or evaluation of aortic thrombus. Pt denies any LE pain. Nonambulatory. Denies pedal wounds. Following w/ Dr. Mendez for JAK2 positive myeloproliferative disorder. Currently on lovenox currently w/ plans to transition to ASA. Chief Complaint Patient presents with Cerebrovascular Accident New patient- Hx of stroke, abdominal aorta thrombosis Patient Active Problem List Diagnosis Aortic thrombus (CMS-HCC) Spasticity as late effect of cerebrovascular accident (CVA) Muscle spasm Cerebrovascular accident (CVA) (CMS-HCC) Skull defect Cerebrovascular accident (CVA), unspecified mechanism (CMS-HCC) Essential thrombocytosis (CMS-HCC) JAK2 V617F mutation BP 98/74 Pulse 78 Past Medical History: Diagnosis Date Alteration in bowel elimination: incontinence Anxiety Chronic constipation CVA (cerebral vascular accident) (CMS-HCC) Difficult speech, left side weakness Dental disease Upper full and lower partial GERD (gastroesophageal reflux disease) Head injury Hyperlipidemia Hypertension JAK2 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 mutation Memory loss Short term Myeloproliferative disorder (CMS-HCC) Visual impairment Glasses Past Surgical History: Procedure Laterality Date CARPAL TUNNEL RELEASE Bilateral CRANIOPLASTY / RIGHT AUTOLOGOUS CRANIOPLASTY Right 10/10/2023 Performed by Albino Burton MD at [facility] ESOPHAGOGASTRODUODENOSCOPY INSERTION PEG TUBE N/A 01/06/2023 Performed by Cam Miller MD at [facility] FOOT SURGERY HYSTERECTOMY ORIF WRIST WITH BONE GRAFT Left 01/12/2019 Performed by Philip Olsen MD at [facility] PEG TUBE REMOVAL 07/20/2023 RIGHT SIDE CRANIOTOMY EVACUATION HEMATOMA/CRAINECTOMY/EVD INSERTION Right 12/26/2022 Performed by Albino Burton MD at [facility] TRACHEOSTOMY N/A 01/06/2023 Performed by Cam Miller MD at [facility] TRACHEOSTOMY CLOSURE 07/21/2023 Physical Exam: Physical Exam Vitals and nursing note reviewed. Constitutional: Appearance: Normal appearance. HENT: Head: Normocephalic and atraumatic. Pulmonary: Effort: Pulmonary effort is normal. Musculoskeletal: General: Normal range of motion. Comments: Moving all ext equally Skin: General: Skin is warm and dry. Neurological: General: No focal deficit present. Mental Status: She is alert and oriented to person, place, and time. Psychiatric: Attention and Perception: Attention normal. Mood and Affect: Mood normal. Speech: Speech normal. Behavior: Behavior is cooperative. No pedal wounds Testing Reviewed: CBC with Differential: Lab Results Component Value Date WBC 7.0 10/12/2023 HGB 9.5 (L) 10/12/2023 HCT 27.9 (L) 10/12/2023 PLT 200 10/12/2023 MCV 118 (H) 10/12/2023 MCH 40.3 (H) 10/12/2023 MCHC 34.1 10/12/2023 RDW 14.3 10/12/2023 BMP: Lab Results Component Value Date SODIUM 139 10/12/2023 K 3.6 10/12/2023 CL 105 10/12/2023 CO2 27 10/12/2023 BUN 15 10/12/2023 CREATININE 0.50 10/12/2023 EGFR >90 10/12/2023 GLU 99 10/12/2023 GLU 133 (H) 10/10/2023 BNP: Lab Results Component Value Date BNP 58 12/26/2022 Troponin: Lab Results Component Value Date TROPONINI 0.03 12/26/2022 HgBA1c: Lab Results Component Value Date HGBA1C 5.6 12/27/2022 Lipid Panel: Lab Results Component Value Date TRIG 169 (H) 12/27/2022 Vas art doppler lwr limited single Result Date: 12/27/2022 Right: Essentially normal PVR waveform contour at the ankle. PT VAZQUEZ is 1.09; DP VAZQUEZ is 1.23. Hyperemic PT and DP CW Doppler waveforms. Left: Essentially normal PVR waveform contour at the ankle. PT VAZQUEZ is 1.14; DP VAZQUEZ is 1.18. Hyperemic PT and DP CW Doppler waveforms. Conclusions: Abnormal waveforms suggest VAZQUEZ may be falsely elevated. Waveform data is consistent with moderatearterial obstruction.Toe waveform is severely dampened on the both sides. Recommendations: Any questions prior to finalization, please call the reading physician during normal business hours at the phone number beside their name. Assessment: Encounter Diagnosis Name Primary? 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[facility]) Angelique was seen today for cerebrovascular accident. Diagnoses and all orders for this visit: 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[facility]) - [facility] [place], [place] Plan of care: Please note that total time spent was 20 minutes: Including but not limited to: Preparing to see the patient (e.g., review of tests) Obtaining and/or reviewing separately obtained history Performing a medically appropriate examination and evaluation Counseling and educating the patient/family/caregiver Ordering medications, tests, or procedures Documenting visit details Angelique was seen today for cerebrovascular accident. Diagnoses and all orders for this visit: 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[facility]) - [facility] [place], [place] Angelique Melo is a 58 y.o. White or female with h/o JAK2 positive myeloproliferative disorder and admission 12/2022 w/ descending aortic thrombus with distal embolization including renal/splenic infarcts and leg ischemia of bilateral feet followed by IPH and CVA w/ subsequent aphasia and L sided paralysis. Aortic thrombus: CTA chest, abd and pelvis ordered VAZQUEZ/PVR ordered Medical mgmt: Anti-platelet: ASA Statin: statin Asymptomatic carotid artery disease: pt high risk for carotid artery disease given age, HLD, and recent CVA. Carotid duplex ordered. Return to clinic after CTA chest, abd/pelvis and carotid duplex completed to review results and discuss further plan of care. SIGNATURE: Rhoda Urrutia DO CC: MD Mary ROMANO Drew R, MD documented in this encounter [facility] [place] 11-02-2023 History of Present illness Narrative Images from the original note were not included. [facility] ADULT CLASSICAL HEMATOLOGY Dr. Eligio Wiley, AARON Broderick, [facility] OUTPATIENT FOLLOW-UP NOTE Patient ID: Angelique Melo, 58 y.o. female Referred by: hospital follow-up PCP: ALEX PRITCHETT MD : 1965 CHIEF COMPLAINT: Chief Complaint Patient presents with 1 month with repeat CBC HISTORY OF PRESENT ILLNESS: Angelique Melo is a 58 y.o. female with history of hyperlipidemia, tobacco use, osteopenia, hysterectomy at age 16, past thrombosis problems (admission in 12/2022 for descending aortic thrombus with distal embolization including renal/splenic infarcts and leg ischemia of bilateral feet), IPH in 12/2022, and other health problems who presents today for follow-up at the [facility] due to JAK2 positive myeloproliferative disorder. I last saw her in 12/2022 during hospitalization. She was then placed on hydrea at 1500mg at rehab facility with limited lab monitoring and no adjusting of hydrea dosing. Seen in follow-up in our office in 01/2023 and hydrea dose decreased to 1000mg daily. She was then nxcb-is-iqnzol-up. Has been on VTE prophylaxis since hospitalization in 12/2022 (heparin subq from 12/2022-08/2023 and then enoxaparin subq from 08/2023-present). Here today for delayed follow-up. Currently, she is doing okay. She is in wheelchair today. She has limited speech ability. She can move her right side, but has limited mobility on her left side. Her is at bedside. They deny any specific bleeding concerns. She remains on enoxaparin 40 mg daily. She is not on any aspirin. She is taking Hydrea 1000 mg daily. She had recent labs drawn during her hospitalization in 09/2023. Otherwise, no other major complaints today. PAST HEMATOLOGY HISTORY: Oncology History No history exists. REVIEW OF SYSTEMS: Complete 10-point ROS is negative except as mentioned in HPI. 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 mutation Memory loss Short term Myeloproliferative disorder (CMS-HCC) Visual impairment Glasses PAST SURGICAL HISTORY: Past Surgical History: Procedure Laterality Date CARPAL TUNNEL RELEASE Bilateral CRANIOPLASTY / RIGHT AUTOLOGOUS CRANIOPLASTY Right 10/10/2023 Performed by Albino Burton MD at [facility] ESOPHAGOGASTRODUODENOSCOPY INSERTION PEG TUBE N/A 01/06/2023 Performed by Cam Miller MD at [facility] FOOT SURGERY HYSTERECTOMY ORIF WRIST WITH BONE GRAFT Left 01/12/2019 Performed by Philip Olsen MD at [facility] PEG TUBE REMOVAL 07/20/2023 RIGHT SIDE CRANIOTOMY EVACUATION HEMATOMA/CRAINECTOMY/EVD INSERTION Right 12/26/2022 Performed by Albino Burton MD at [facility] TRACHEOSTOMY N/A 01/06/2023 Performed by Cam Miller MD at [facility] TRACHEOSTOMY CLOSURE 07/21/2023 PAST FAMILY HISTORY: Family History Problem Relation Age of Onset Hodgkin's lymphoma Father Anesthesia problems Neg Hx SOCIAL HISTORY: Lives in [place], [place]. Social History Socioeconomic History Marital status: Spouse name: Not on file Number of children: Not on file Years of education: Not on file Highest education level: Not on file Occupational History Not on file Tobacco Use Smoking status: Former Current packs/day: 0.00 Average packs/day: 1.5 packs/day for 43.0 years (64.5 ttl pk-yrs) Types: Cigarettes Start date: 1979 Quit date: 2022 Years since quittin.6 Smokeless tobacco: Former Tobacco comments: VAP Vaping Use Vaping status: Former Substance and Sexual Activity Alcohol use: Not Currently Comment: once in a great while Drug use: Not Currently Types: Marijuana Sexual activity: Defer Other Topics Concern Not on file Social History Narrative Not on file Social Determinants of Health Financial Resource Strain: Not on file Food Insecurity: No Food Insecurity (11/02/2023) Hunger Screening Food Insecurity - Worry: Never True Food Insecurity - Inability: Never True Transportation Needs: No Transportation Needs (10/10/2023) PRAPARE - Transportation Lack of Transportation (Medical): No Lack of Transportation (Non-Medical): No Physical Activity: Not on file Stress: Not on file Social Connections: Not on file Interpersonal Safety: Not At Risk (10/10/2023) Humiliation, Afraid, Rape, and Kick questionnaire Fear of Current or Ex-Partner: No Emotionally Abused: No Physically Abused: No Sexually Abused: No Housing Instability: Low Risk (10/10/2023) Housing Instability Housing Instability: No MEDICATIONS: Current Outpatient Medications on File Prior to Visit Medication Sig Dispense Refill acetaminophen (TYLENOL) 325 mg tablet 2 tablets (650 mg total) every 6 (six) hours as needed. acetaminophen (TYLENOL) 325 mg tablet Take 2 tablets (650 mg total) by mouth every 6 (six) hours as needed for pain. 30 tablet 0 artificial tears,hypromellose, (ISOPTO TEARS) 0.5 % ophthalmic solution Administer 1 drop to both eyes every 2 (two) hours as needed (if heavily sedated or paralyzed). 15 mL 3 baclofen (LIORESAL) 10 mg tablet Take 0.5 tablets (5 mg total) by mouth in the morning and 0.5 tablets (5 mg total) before bedtime. carvediloL (COREG) 25 mg tablet Take 1 tablet (25 mg total) by mouth in the morning and 1 tablet (25 mg total) before bedtime. (Patient taking differently: Take 0.5 tablets (12.5 mg total) by mouth in the morning and 0.5 tablets (12.5 mg total) before bedtime.) 60 tablet 3 famotidine (PEPCID) 20 mg tablet 1 tablet (20 mg total) in the morning and 1 tablet (20 mg total) before bedtime. hydroxyurea (HYDREA) 500 mg chemo capsule Take 2 capsules by mouth daily ibuprofen (ADVIL,MOTRIN) 200 mg tablet Take 1 tablet (200 mg total) by mouth every 6 (six) hours as needed for pain (pt took equivalent to 800mg of the over the counter). potassium chloride (K-TAB,KLOR-CON) 20 mEq CR tablet Take 1 tablet (20 mEq total) by mouth every morning. sennosides-docusate sodium (SENNA WITH DOCUSATE SODIUM) 8.6-50 mg Take 1 tablet by mouth in the morning. simvastatin (ZOCOR) 40 mg tablet Take by mouth nightly. traZODone (DESYREL) 50 mg tablet Take 1 tablet (50 mg total) by mouth nightly. venlafaxine (EFFEXOR) 75 mg tablet Take 2 tablets (150 mg total) by mouth nightly. bisacodyL (DULCOLAX) 10 mg suppository Insert 1 suppository (10 mg total) into the rectum as needed. (Patient not taking: Reported on 11/02/2023) No current facility-administered medications on file prior to visit. ALLERGIES: No Known Allergies PHYSICAL EXAMINATION: Vital signs: BP 101/69 (BP Site: Right Arm, BP Postition: Sitting) Pulse 78 Temp 36.6 C (97.8 F) (Oral) Ht 177.8 cm (5' 10 ) BMI 26.38 kg/m General appearance: alert, no acute distress HEENT: supple ABD: soft, NT/ND, some ecchymosis noted EXT: Trace edema. Brace on left leg. LABORATORY DATA: Lab Results Component Value Date WBC 7.0 10/12/2023 HGB 9.5 (L) 10/12/2023 HCT 27.9 (L) 10/12/2023 MCV 118 (H) 10/12/2023 PLT 200 10/12/2023 Lab Results Component Value Date GLU 99 10/12/2023 CALCIUM 8.9 10/12/2023 SODIUM 139 10/12/2023 K 3.6 10/12/2023 CO2 27 10/12/2023 BUN 15 10/12/2023 CREATININE 0.50 10/12/2023 Lab Results Component Value Date ALT 172 (H) 01/11/2023 AST 86 (H) 01/11/2023 ALKPHOS 166 (H) 01/11/2023 Lab Results Component Value Date INR 1.0 10/05/2023 INR 1.0 12/31/2022 INR 1.1 12/26/2022 PROTIME 12.1 10/05/2023 PROTIME 11.7 12/31/2022 PROTIME 13.0 12/26/2022 IMAGING: Reviewed in [employer] BILLING: Total time spent was 34 minutes: Preparing to see the patient (e.g., review of tests) Obtaining and/or reviewing separately obtained history Performing a medically appropriate examination and/or evaluation Counseling and educating the patient/family/caregiver Ordering medications, tests, or procedures Documenting clinical information in the electronic or other health record ASSESSMENT: Angelique Melo is a 58 y.o. female with history of hyperlipidemia, tobacco use, osteopenia, hysterectomy at age 16, past thrombosis problems (admission in 12/2022 for descending aortic thrombus with distal embolization including renal/splenic infarcts and leg ischemia of bilateral feet), IPH in 12/2022, and other health problems who presents today for follow-up at the [facility] due to JAK2 positive myeloproliferative disorder. 1. 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 Some leukocytosis/neutrophilia and thrombocytosis could also be reactive given acute medical problems and elevated inflammatory markers. Interesting, she grew up near [place], [place] ([facility]) and has multiple family members with blood disorders (sister with acute leukemia follows with , father with Hodgkins, and uncle with leukemia). We discussed this in detail during her hospitalization in 12/2022 and again today. Platelet count is now normal. Agree with plans for cytoreductive therapy given age and history of thrombosis. We will continue with Hydrea 1000 mg daily. We discussed that this will be a long-term medication. We will check CBC every 3 months and CMP every 6 months. We will adjust Hydrea dose as needed. She is not on aspirin, but remains on VTE prophylaxis for unclear reasons. We will have her stop enoxaparin when she completes her supply. We will then have her start aspirin 81 mg daily. 2. 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 Reviewed CT images with patient and her today. Will defer to vascular team. Has not seen vascular team since 12/2022. Referral to vascular in [place] for aortic thrombosis with history of detail emobolization. 3. Past IPH in 12/2022 4. HTN: BP running low at home. On amlodipine and coreg. Recommended stopping amlodipine for now and ongoing BP monitoring. RECOMMENDATIONS: - Discussed JAK2 positive myeloproliferative disorder again today. - Recent CBC showed normal platelet counts. - Continue hydrea 1000mg daily. - Check CBC every 3 months. Check CMP every 6 months. - Start aspirin 81mg daily. - Has been on VTE prophylaxis since hospitalization in 12/2022 (heparin subq from 12/2022-08/2023 and then enoxaparin subq from 08/2023-present). Can stop from my perspective once they complete their home supply (about 3-4 more weeks worth). - Referral to vascular in [place] for aortic thrombosis. - RTC in 6 months. Eligio Mendez MD Adult [employer] [facility] [employer] Pager: [phone] documented in this encounter [facility] 10-26-2023 Miscellaneous Notes Returned pt husbands call requesting refill of Lovenox, message sent to Dr. Mendez for refill. Elizabeth VILLASENOR [facility] documented in this encounter [facility] 10-26-2023 Telephone encounter Note Returned pt husbands call requesting refill of Lovenox, message sent to Dr. Mendez for refill. Elizabeth VILLASENOR [facility] 10-25-2023 History of Present illness Narrative [facility] [address] [facility], [address] [address] Suture/Staple Removal/Wound Date: October 25, 2023 Patient: Angelique Melo Physician: Dr. Burton Procedure: (1) right [id number] autologous cranioplasty more than 12 cm (2) insertion of intraoperative ventricular drain Past Surgical History: Procedure Laterality Date CARPAL TUNNEL RELEASE Bilateral CRANIOPLASTY / RIGHT AUTOLOGOUS CRANIOPLASTY Right 10/10/2023 Performed by Albino Burton MD at [facility] ESOPHAGOGASTRODUODENOSCOPY INSERTION PEG TUBE N/A 01/06/2023 Performed by Cam Miller MD at [facility] FOOT SURGERY HYSTERECTOMY ORIF WRIST WITH BONE GRAFT Left 01/12/2019 Performed by Philip Olsen MD at [facility] PEG TUBE REMOVAL 07/20/2023 RIGHT SIDE CRANIOTOMY EVACUATION HEMATOMA/CRAINECTOMY/EVD INSERTION Right 12/26/2022 Performed by Albino Burton MD at [facility] TRACHEOSTOMY N/A 01/06/2023 Performed by Cam Miller MD at [facility] TRACHEOSTOMY CLOSURE 07/21/2023 Date of Procedure: 10/10/2023 Reason for Appointment: suture removal Post-Op Fever?: No Incisional Drainage?: No Skin Edges Approximated?: Yes Unusual Redness?: No Unusual Swelling?: No Sutures/Hills Removed?: Yes Steri Strips Applied?: No Use of Pain Medication: Tylenol occasionally as needed Effective for Pain Relief?: Yes Comments: Patient arrive in a wheelchair accompanied by her Spouse. Angelique's spouse notes she has been doing well since surgery. Angelique denies any pain at present. She is awake, alert with good eye contact. Nods indicating yes or no . Expressive aphasia and left sided hemiparesis persists. Angelique is currently receiving home care services with PT/OT/ST. Current Concerns with Incision or Symptoms?: No It is best to reposition often to reduce the amount of pressure on the incision. Discussed with Dr. Burton: Wound well healed, sutures removed. Patient/spouse instructed to continue to wash hair with a gentle shampoo, avoid soaking/submerging incision. Call office with any signs/symptoms of infection or any questions/concerns. Follow up as scheduled with Dr. Burton. documented in this encounter [facility] 10-05-2023 Miscellaneous Notes I spoke to Inez to let him know an antibiotic was sent in for Angelique due to abnormal UA. Inez states he is going to take Angelique to draw the rest of her labs that were missed later today. documented in this encounter [facility] 10-05-2023 Telephone encounter Note I spoke to Inez to let him know an antibiotic was sent in for Angelique due to abnormal UA. Inez states he is going to take Angelique to draw the rest of her labs that were missed later today. [facility] 10-05-2023 Miscellaneous Notes UA positive and Dr Burton would like broad based antibiotic to be ordered prior to surgery- Angelique notified. documented in this encounter [facility] 10-05-2023 Telephone encounter Note UA positive and Dr Burton would like broad based antibiotic to be ordered prior to surgery- Angelique notified. [facility] 09-26-2023 History and physical note PRE-ADMISSION TESTING HISTORY AND PHYSICAL: EXAM DATE: 09/26/23 CC: Left side weakness, speech difficulty HISTORY OF PRESENT ILLNESS: Angelique Melo is a 58 y.o. female who presents with right bone flap removal after CVA. She had her stroke in December of 2022. The patient is accompanied by her mother and who assist with history. She has residual left side weakness, short term memory loss, speech difficulty and peripheral vision loss. The patient denies headaches, nausea, dizziness or seizure activity. She also denies chest pain, dyspnea, recent illness or fever. PAST MEDICAL HISTORY: Past Medical History: Diagnosis Date Alteration in bowel elimination: incontinence Anxiety Chronic constipation CVA (cerebral vascular accident) ([facility]) Difficult speech, left side weakness Dental disease Upper full and lower partial GERD (gastroesophageal reflux disease) Head injury Hyperlipidemia Hypertension JAK2 V617F mutation Memory loss Short term Myeloproliferative disorder ([facility]) Visual impairment Glasses PAST SURGICAL HISTORY: Past Surgical History: Procedure Laterality Date CARPAL TUNNEL RELEASE Bilateral ESOPHAGOGASTRODUODENOSCOPY INSERTION PEG TUBE N/A 01/06/2023 Performed by Cam Miller MD at [facility] FOOT SURGERY HYSTERECTOMY ORIF WRIST WITH BONE GRAFT Left 01/12/2019 Performed by Philip Olsen MD at [facility] PEG TUBE REMOVAL 07/20/2023 RIGHT SIDE CRANIOTOMY EVACUATION HEMATOMA/CRAINECTOMY/EVD INSERTION Right 12/26/2022 Performed by Albino Burton MD at [facility] TRACHEOSTOMY N/A 01/06/2023 Performed by Cam Miller MD at [facility] TRACHEOSTOMY CLOSURE 07/21/2023 FAMILY HISTORY: Family History Problem Relation Age of Onset Hodgkin's lymphoma Father Anesthesia problems Neg Hx SOCIAL HISTORY: Social History Socioeconomic History Marital status: Spouse name: Not on file Number of children: Not on file Years of education: Not on file Highest education level: Not on file Occupational History Not on file Tobacco Use Smoking status: Former Current packs/day: 0.00 Average packs/day: 1.5 packs/day for 43.0 years (64.5 ttl pk-yrs) Types: Cigarettes Start date: 1979 Quit date: 2022 Years since quittin.4 Smokeless tobacco: Former Tobacco comments: VAP Vaping Use Vaping status: Former Substance and Sexual Activity Alcohol use: Not Currently Comment: once in a great while Drug use: Not Currently Types: Marijuana Sexual activity: Defer Other Topics Concern Not on file Social History Narrative Not on file Social Determinants of Health Financial Resource Strain: Not on file Food Insecurity: No Food Insecurity (09/26/2023) Hunger Screening Food Insecurity - Worry: Never True Food Insecurity - Inability: Never True Transportation Needs: Not on file Physical Activity: Not on file Stress: Not on file Social Connections: Not on file Interpersonal Safety: Not on file Housing Instability: Low Risk (01/11/2023) Housing Instability Housing Instability: No ALLERGIES: No Known Allergies MEDICATIONS: Current Outpatient Medications: acetaminophen (TYLENOL) 325 mg tablet, 2 tablets (650 mg total) every 6 (six) hours as needed., Disp: , Rfl: amLODIPine (NORVASC) 5 mg tablet, Take 1 tablet (5 mg total) by mouth in the morning., Disp: 30 tablet, Rfl: 3 artificial tears,hypromellose, (ISOPTO TEARS) 0.5 % ophthalmic solution, Administer 1 drop to both eyes every 2 (two) hours as needed (if heavily sedated or paralyzed)., Disp: 15 mL, Rfl: 3 baclofen (LIORESAL) 10 mg tablet, Take 0.5 tablets (5 mg total) by mouth in the morning and 0.5 tablets (5 mg total) before bedtime., Disp: , Rfl: carvediloL (COREG) 25 mg tablet, Take 1 tablet (25 mg total) by mouth in the morning and 1 tablet (25 mg total) before bedtime. (Patient taking differently: Take 0.5 tablets (12.5 mg total) by mouth in the morning and 0.5 tablets (12.5 mg total) before bedtime.), Disp: 60 tablet, Rfl: 3 enoxaparin (LOVENOX) 40 mg/0.4 mL syringe, Inject 0.4 mL (40 mg total) under the skin in the morning., Disp: 12 mL, Rfl: 1 famotidine (PEPCID) 20 mg tablet, 1 tablet (20 mg total) in the morning and 1 tablet (20 mg total) before bedtime., Disp: , Rfl: HYDROXYUREA ORAL, Take 2 tablets by mouth in the evening., Disp: , Rfl: potassium chloride (K-TAB,KLOR-CON) 20 mEq CR tablet, Take 1 tablet (20 mEq total) by mouth every morning., Disp: , Rfl: sennosides-docusate sodium (SENNA WITH DOCUSATE SODIUM) 8.6-50 mg, Take 1 tablet by mouth in the morning., Disp: , Rfl: simvastatin (ZOCOR) 40 mg tablet, Take by mouth nightly., Disp: , Rfl: traZODone (DESYREL) 50 mg tablet, Take 1 tablet (50 mg total) by mouth nightly., Disp: , Rfl: venlafaxine (EFFEXOR) 75 mg tablet, Take 2 tablets (150 mg total) by mouth nightly., Disp: , Rfl: aspirin 81 mg chewable tablet, Chew 1 tablet (81 mg total) and swallow in the morning., Disp: 30 tablet, Rfl: 3 bisacodyL (DULCOLAX) 10 mg suppository, Insert 1 suppository (10 mg total) into the rectum as needed., Disp: , Rfl: ibuprofen (ADVIL,MOTRIN) 200 mg tablet, Take 1 tablet (200 mg total) by mouth every 6 (six) hours as needed for pain (pt took equivalent to 800mg of the over the counter)., Disp: , Rfl: REVIEW OF SYSTEMS: Review of Systems Constitutional: Negative for fever. HENT: Positive for dental problem (Dentures). Negative for hearing loss, rhinorrhea and sore throat. Eyes: Positive for visual disturbance. Respiratory: Negative for cough, chest tightness and shortness of breath. Cardiovascular: Negative for chest pain, leg swelling and chest discomfort. Gastrointestinal: Positive for constipation. Negative for nausea, vomiting, abdominal pain, diarrhea, blood in stool and abdominal distention. Genitourinary: Negative for dysuria, hematuria and difficulty urinating. Musculoskeletal: Negative for myalgias, back pain, arthralgias and neck pain. Skin: Negative for rash and wound. Neurological: Positive for weakness. Negative for dizziness, seizures and headaches. Hematological: Bruises/bleeds easily (Lovenox injections). Psychiatric/Behavioral: Negative for agitation, behavioral problems and confusion. VITAL SIGNS: BP 103/72 Pulse 91 Temp 36.8 C (98.3 F) (Temporal) Resp 18 Ht 177.8 cm (5' 10 ) Wt 83.9 kg (185 lb) SpO2 97% BMI 26.54 kg/m PHYSICAL EXAM: Physical Exam Vitals reviewed. Constitutional: General: She is not in acute distress. Appearance: She is well-developed. HENT: Head: Normocephalic and atraumatic. Right Ear: External ear normal. Left Ear: External ear normal. Nose: No rhinorrhea. Mouth/Throat: Mouth: Mucous membranes are moist. Eyes: General: No scleral icterus. Cardiovascular: Rate and Rhythm: Normal rate and regular rhythm. Heart sounds: Normal heart sounds. No murmur heard. Pulmonary: Effort: Pulmonary effort is normal. Breath sounds: Normal breath sounds. No wheezing or rhonchi. Abdominal: General: Bowel sounds are normal. Palpations: Abdomen is soft. Skin: General: Skin is warm and dry. Neurological: Mental Status: She is alert and oriented to person, place, and time. Psychiatric: Behavior: Behavior normal. IMPRESSION/DIAGNOSIS: CVA, Unspecified Mechanism PLAN: Angelique Melo is a 58 y.o. female scheduled for Cranioplasty / Right Autologous Cranioplasty - Right with Dr. Burton on 10/10/2023. NATALIE Trujillo 09/26/23 [id number] [facility] 09-26-2023 History and physical note PRE-ADMISSION TESTING HISTORY AND PHYSICAL: EXAM DATE: 09/26/23 CC: Left side weakness, speech difficulty HISTORY OF PRESENT ILLNESS: Angeliqeu Melo is a 58 y.o. female who presents with right bone flap removal after CVA. She had her stroke in December of 2022. The patient is accompanied by her mother and who assist with history. She has residual left side weakness, short term memory loss, speech difficulty and peripheral vision loss. The patient denies headaches, nausea, dizziness or seizure activity. She also denies chest pain, dyspnea, recent illness or fever. 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 mutation Memory loss Short term Myeloproliferative disorder (CMS-HCC) Visual impairment Glasses PAST SURGICAL HISTORY: Past Surgical History: Procedure Laterality Date CARPAL TUNNEL RELEASE Bilateral ESOPHAGOGASTRODUODENOSCOPY INSERTION PEG TUBE N/A 01/06/2023 Performed by Cam Miller MD at [facility] FOOT SURGERY HYSTERECTOMY ORIF WRIST WITH BONE GRAFT Left 01/12/2019 Performed by Philip Olsen MD at [facility] PEG TUBE REMOVAL 07/20/2023 RIGHT SIDE CRANIOTOMY EVACUATION HEMATOMA/CRAINECTOMY/EVD INSERTION Right 12/26/2022 Performed by Albino Burton MD at [facility] TRACHEOSTOMY N/A 01/06/2023 Performed by Cam Miller MD at [facility] TRACHEOSTOMY CLOSURE 07/21/2023 FAMILY HISTORY: Family History Problem Relation Age of Onset Hodgkin's lymphoma Father Anesthesia problems Neg Hx SOCIAL HISTORY: Social History Socioeconomic History Marital status: Spouse name: Not on file Number of children: Not on file Years of education: Not on file Highest education level: Not on file Occupational History Not on file Tobacco Use Smoking status: Former Current packs/day: 0.00 Average packs/day: 1.5 packs/day for 43.0 years (64.5 ttl pk-yrs) Types: Cigarettes Start date: 1979 Quit date: 2022 Years since quittin.4 Smokeless tobacco: Former Tobacco comments: VAP Vaping Use Vaping status: Former Substance and Sexual Activity Alcohol use: Not Currently Comment: once in a great while Drug use: Not Currently Types: Marijuana Sexual activity: Defer Other Topics Concern Not on file Social History Narrative Not on file Social Determinants of Health Financial Resource Strain: Not on file Food Insecurity: No Food Insecurity (09/26/2023) Hunger Screening Food Insecurity - Worry: Never True Food Insecurity - Inability: Never True Transportation Needs: Not on file Physical Activity: Not on file Stress: Not on file Social Connections: Not on file Interpersonal Safety: Not on file Housing Instability: Low Risk (01/11/2023) Housing Instability Housing Instability: No ALLERGIES: No Known Allergies MEDICATIONS: Current Outpatient Medications: acetaminophen (TYLENOL) 325 mg tablet, 2 tablets (650 mg total) every 6 (six) hours as needed., Disp: , Rfl: amLODIPine (NORVASC) 5 mg tablet, Take 1 tablet (5 mg total) by mouth in the morning., Disp: 30 tablet, Rfl: 3 artificial tears,hypromellose, (ISOPTO TEARS) 0.5 % ophthalmic solution, Administer 1 drop to both eyes every 2 (two) hours as needed (if heavily sedated or paralyzed)., Disp: 15 mL, Rfl: 3 baclofen (LIORESAL) 10 mg tablet, Take 0.5 tablets (5 mg total) by mouth in the morning and 0.5 tablets (5 mg total) before bedtime., Disp: , Rfl: carvediloL (COREG) 25 mg tablet, Take 1 tablet (25 mg total) by mouth in the morning and 1 tablet (25 mg total) before bedtime. (Patient taking differently: Take 0.5 tablets (12.5 mg total) by mouth in the morning and 0.5 tablets (12.5 mg total) before bedtime.), Disp: 60 tablet, Rfl: 3 enoxaparin (LOVENOX) 40 mg/0.4 mL syringe, Inject 0.4 mL (40 mg total) under the skin in the morning., Disp: 12 mL, Rfl: 1 famotidine (PEPCID) 20 mg tablet, 1 tablet (20 mg total) in the morning and 1 tablet (20 mg total) before bedtime., Disp: , Rfl: HYDROXYUREA ORAL, Take 2 tablets by mouth in the evening., Disp: , Rfl: potassium chloride (K-TAB,KLOR-CON) 20 mEq CR tablet, Take 1 tablet (20 mEq total) by mouth every morning., Disp: , Rfl: sennosides-docusate sodium (SENNA WITH DOCUSATE SODIUM) 8.6-50 mg, Take 1 tablet by mouth in the morning., Disp: , Rfl: simvastatin (ZOCOR) 40 mg tablet, Take by mouth nightly., Disp: , Rfl: traZODone (DESYREL) 50 mg tablet, Take 1 tablet (50 mg total) by mouth nightly., Disp: , Rfl: venlafaxine (EFFEXOR) 75 mg tablet, Take 2 tablets (150 mg total) by mouth nightly., Disp: , Rfl: aspirin 81 mg chewable tablet, Chew 1 tablet (81 mg total) and swallow in the morning., Disp: 30 tablet, Rfl: 3 bisacodyL (DULCOLAX) 10 mg suppository, Insert 1 suppository (10 mg total) into the rectum as needed., Disp: , Rfl: ibuprofen (ADVIL,MOTRIN) 200 mg tablet, Take 1 tablet (200 mg total) by mouth every 6 (six) hours as needed for pain (pt took equivalent to 800mg of the over the counter)., Disp: , Rfl: REVIEW OF SYSTEMS: Review of Systems Constitutional: Negative for fever. HENT: Positive for dental problem (Dentures). Negative for hearing loss, rhinorrhea and sore throat. Eyes: Positive for visual disturbance. Respiratory: Negative for cough, chest tightness and shortness of breath. Cardiovascular: Negative for chest pain, leg swelling and chest discomfort. Gastrointestinal: Positive for constipation. Negative for nausea, vomiting, abdominal pain, diarrhea, blood in stool and abdominal distention. Genitourinary: Negative for dysuria, hematuria and difficulty urinating. Musculoskeletal: Negative for myalgias, back pain, arthralgias and neck pain. Skin: Negative for rash and wound. Neurological: Positive for weakness. Negative for dizziness, seizures and headaches. Hematological: Bruises/bleeds easily (Lovenox injections). Psychiatric/Behavioral: Negative for agitation, behavioral problems and confusion. VITAL SIGNS: BP 103/72 Pulse 91 Temp 36.8 C (98.3 F) (Temporal) Resp 18 Ht 177.8 cm (5' 10 ) Wt 83.9 kg (185 lb) SpO2 97% BMI 26.54 kg/m PHYSICAL EXAM: Physical Exam Vitals reviewed. Constitutional: General: She is not in acute distress. Appearance: She is well-developed. HENT: Head: Normocephalic and atraumatic. Right Ear: External ear normal. Left Ear: External ear normal. Nose: No rhinorrhea. Mouth/Throat: Mouth: Mucous membranes are moist. Eyes: General: No scleral icterus. Cardiovascular: Rate and Rhythm: Normal rate and regular rhythm. Heart sounds: Normal heart sounds. No murmur heard. Pulmonary: Effort: Pulmonary effort is normal. Breath sounds: Normal breath sounds. No wheezing or rhonchi. Abdominal: General: Bowel sounds are normal. Palpations: Abdomen is soft. Skin: General: Skin is warm and dry. Neurological: Mental Status: She is alert and oriented to person, place, and time. Psychiatric: Behavior: Behavior normal. IMPRESSION/DIAGNOSIS: CVA, Unspecified Mechanism PLAN: Angelique Melo is a 58 y.o. female scheduled for Cranioplasty / Right Autologous Cranioplasty - Right with Dr. Burton on 10/10/2023. NATALIE Trujillo 09/26/23 [id number] documented in this encounter [facility] 09-26-2023 Instructions Kiersten Verdin RN - 09/26/2023 2:45 PM EDT Your surgery/procedure is scheduled at [facility] on October 09 at 10:15 am Arrival Time 8:15 am [facility] Address: [address] [place] [address]. [address] in [address] Parking lot located on [facility]. Report to the Entrance B. Check in at the information desk the surgery. The waiting room located on the second floor. If you have any questions prior to surgery, please call Pre-Admission Clinic at [phone] between 7:30 am and 4:30 pm Tuesday through Tuesday. If you have questions the morning of surgery, please call the Pre-op Department at [phone]. Notify your SURGEON if you develop any illness such as a cold, cough, fever, sore throat, vomiting or are hospitalized between now and your surgery. CONTINUE TO TAKE YOUR MEDICATIONS PRESCRIBED. DO NOT STOP YOUR PRESCRIBED MEDICATIONS UNLESS DIRECTED BY YOUR PRESCRIBING PHYSICIAN Take the following medications the morning of surgery with a sip of water: Amlodipine, carvidilol and pepcid. Weight loss medications: n/a Take inhalers as prescribed the morning of surgery. . Blood thinners: Medications such as Coumadin, Heparin, Aspirin, Plavix, Eliquis, Pradaxa) Please contact your physician regarding a stop/hold date for these medications. Diabetics: If you take insulin, contact your prescribing doctor for instructions on how to manage this the night before and the morning of surgery. Non-steriodal Anti-Inflammatory Drugs (NSAIDS)- Stop 3 days prior to surgery unless otherwise directed by your surgeon. Vitamins/Herbal Products: You may continue to take your prescribed vitamins such as potassium, iron, vitamin B, vitamin C, or multivitamin unless specifically instructed by your surgeon to stop. STOP taking all herbal products/teas one week prior to your surgery. Marijuana: Stop marijuana 72 hours prior to surgery, stop CBD oil 48 hours prior to surgery. If you have been given bowel prep instructions by your surgeon, please call the surgeon's office with any questions about these instructions. What do I do the day of Surgery? Age 2 through adult - Stop all solids by midnight, You may have clear liquids up to 2 hours before surgery, unless otherwise instructed by your surgeon. Clear liquids are: water, sports drinks such as Gatorade or G2, or apple juice. You may NOT have: tube feedings, dairy products, alcoholic beverages, orange juice, or any liquids with solids or pulp in it. If applicable, shower again with CHG soap the morning of your surgery. If you received a green plastic bracelet, bring it with you the day of surgery and your nurse will put it on you. In order to help prevent infection post-operatively, you may be asked to use a CHG mouthwash when you arrive to the Pre-op area. Your nurse will provide instruction the morning of. What do I need to do to prepare for surgery? If you will be going home the same day as your surgery, arrange for an adult over [address] Riding in a bus or taxi by yourself is not permitted. You should not smoke or drink alcohol 24 hours before your surgery. Alcohol thins the blood and may cause bleeding problems during surgery. Smoking increases the risk of breathing problems after surgery. If you have been assigned LAMAR Education by your surgeon's office, please complete this education prior to your surgery. For questions regarding LAMAR education, reach out to your surgeon's office. If you have been given a prescription for occupational, physical or speech therapy, please set up these appointments before your procedure. If you would like to schedule therapy at a [facility] facility, please call [phone] ([phone]). Do not use lotions, creams, powders, perfume, make up, cologne or after-shaves day of surgery. Remove ALL jewelry including wedding rings, body piercings,hair extensions that contain metal, nail russian, make-up, and contact lens. You may brush your teeth the morning of surgery, but do not swallow the water. Wear your dentures and partial plates to the hospital (no adhesive). Shower the night the before. If applicable, use the CHG (chlorhexidine gluconate) soap or wipes What should I bring to the hospital? If you received a green plastic bracelet, bring it with you the day of surgery and your nurse will put it on you. Eyeglass or contact lens case If you will be spending the night, please bring personal care items and leave them in the car until you are taken to your room after surgery. Leave ALL valuables at home. If any of these instructions conflict with those you received from the surgeon, please seek clarification from your surgeon's office. DEEP BREATHING EXERCISES This exercise helps promote good air exchange and helps to prevent pneumonia after surgery. Breathe in slowly and deeply through the nose. Hold your breath for a few seconds and then exhale slowly through the mouth. Repeat this three times and then cough.Coughing helps to clear your lungs. If you have had a surgery with an incision into your abdomen or chest, press gently against your incision with a pillow or a folded blanket when you cough. Please be aware - it may not be nugent to cough following some types of surgeries involving the eyes, ears, sinuses and throat. Always follow your doctor's instructions. LEG EXERCISE These exercises help promote good circulation and help to prevent blood clots after surgery. Point your toes to the ceiling and then point them to the wall. Do this slowly about 15-20 times. You may also move your feet in circles. Do the exercise that is most comfortable for you. If you have had surgery involving your shoulder or arm, we recommend you move your fingers. PRACTICING We ask that you begin practicing these exercises before your surgery. After surgery try to do both exercises at least every 2 hours during the day and early evening. SURGICAL SITE INFECTION PREVENTION What is a Surgical Site Infection? Infection can happen to the area of the body where surgery is done. This is called a surgical site infection (SSI). A SSI does not happen very often. Can SSIs be treated? Antibiotics are used to treat SSI. Some patients may need another surgery to treat the infection. The doctor will discuss treatment options with you. What are some of the things that hospitals are doing to prevent SSIs? Soap and water or alcohol hand rub are used before and after caring for each patient. Special soap is used to clean surgery workers hands and arms just before the surgery. Masks, gowns, gloves and hair covers are worn during the surgery to keep the area clean. Hair in the surgery area may be removed with clippers (not razors). A special soap that kills germs is used to clean the skin at the surgery site. Antibiotics may be given before the surgery starts. What can you do to prevent SSIs? Before surgery: You may be asked to shower or bathe with a special soap that kills germs the night before and the day of surgery. Use the soap as you were told. If you smoke, stop or cut down. Ask your doctor about ways to quit. Do not shave near where you will have surgery. Shaving can irritate the skin and make it easier to get and infection. After surgery: Be sure that the doctors and nurses clean their hands before and after touching you. Be sure your family and friends clean their hands before and after visiting you. Do not be afraid to remind them. * Care for your wound at home as told by your doctor or nurse * Call your doctor right away if you have fever, redness, increased pain, or drainage at the surgery site. Further questions? Contact the doctor, nurse or the Infection Prevention and Control department if you have any questions. PATIENT RIGHTS AND RESPONSIBILITIES As a patient at [facility], you have the right to: Receive medical care and be informed of who is taking care of you Be treated with dignity and respect Have a family member/practice representative of choice and your physician notified of your admission Receive information and actively participate in decisions about your care and treatment Refuse care, treatment and services Decide who may provide your support and speak for you Access christian and spiritual services Participate in ethical issues and questions about your care Receive private and confidential care Have appropriate assessment and management of your pain Know guest visitation restrictions or limitations Have an advance directive Access protective services Consent or refuse to participate in research studies or production or recordings, films or other images Have resolution of your complaints Receive information of hospital charges and payment methods Patient/patient practice representative responsibilities are to: Provide information about health status to facilitate care, treatment and services Follow the treatment, plan, keep appointments and speak up when you do not understand the plan Respect the rights of other patients and healthcare personnel Follow organizational rules and regulations that support quality care and a safe environment Fulfill financial obligations as promptly as possible documented in this encounter [facility] 08-29-2023 Miscellaneous Notes Left voicemail for pt to call our office to schedule an appointment with Dr Mendez documented in this encounter [facility] 08-29-2023 Telephone encounter Note Left voicemail for pt to call our office to schedule an appointment with Dr Mendez [facility] 08-25-2023 History of Present illness Narrative Images from the original note were not included. [facility] [id number] [facility] [id number] Patient: Angelique Melo Date of : 1965 Encounter Date: 08/25/2023 Patient Care Team: Alex Pritchett MD as PCP - General (Family Medicine) Reason for visit: Right temporal hemorrhage History of Present Illness: Subjective: Angelique Melo is a 58 y.o. female with history of JAK2 positive myeloproliferative disorder and thrombocytosis, descending aortic thrombus and history of right frontal intraparenchymal hemorrhage and subarachnoid hemorrhage came to clinic for follow-up. The patient initially presented with abdominal pain on dec 25 2022, her initial workup included a CT abdomen and pelvis with contrast that showed heterogeneous enhancement of right kidney spleen suggestive of multifocal infarctions as well as an irregular plaque/thrombus within the descending thoracic aorta. CT angiogram of the chest was done which confirmed these findings. The patient was neurologically intact initially, she had a CT head without contrast that was negative. She was started on heparin infusion and admitted for further management. After a few hours, the patient had a sudden change of mental status, a stroke alert was called and the patient was sent for a stat CT brain without contrast that showed a large right-sided parenchymal hematoma with parasagittal subarachnoid hemorrhage. Her PTT at that time was more than 150 seconds. Protamine sulfate was administered for reversal, patient was sent to the neuro ICU for close observation. She was taken urgently to the operating room for right-sided edkxycz-xomnkhfo-dbhljirk decompressive craniotomy and hematoma evacuation. The patient was intubated and sedated and admitted to the neuro ICU. She was hypertensive and required a nicardipine drip. Her postoperative CT brain without contrast showed more swelling and postoperative pneumocephalus. In the next following days, the patient continued to show a poor exam with no to minimal movements on the left side and improving movements on the left side however she was never able to follow commands or answer questions. Her code status was changed to DNR CCA after a discussion with her family. As her mental status did not improve, the patient was referred for tracheostomy and PEG tube placement which were done with no complications. During her stay, she was evaluated by vascular surgery/medicine for her descending aorta thrombus, given her significant intraparenchymal hemorrhage, we were unable to start anticoagulation however her hypercoagulability workup included JAK2 mutation came back positive. Throughout her stay, the patient showed significant improvement in her of level of alertness however she never followed commands or answer questions. She continued to be mute throughout her stay. She was seen in clinic today. Since last clinic visit, PEG and trach has been removed (March 2023). Her aphasia has improved somewhat. Right gaze preference has resolved. She continues to have significant left sided weakness still. Left UE is spastic with contractures in left hand and wrist. Past Medical, Family, Surgical, and Social History Update: The following portions of the patient's history were reviewed and updated as appropriate: allergies, current medications, past family history, past medical history, past social history, past surgical history and problem list. Review of Systems Review of Systems Constitutional: Negative for decreased appetite, malaise/fatigue, weight gain and weight loss. HENT: Negative for nosebleeds. Eyes: Negative for blurred vision, double vision, vision loss in left eye, vision loss in right eye and visual disturbance. Cardiovascular: Negative for irregular heartbeat, leg swelling, near-syncope, palpitations and syncope. Respiratory: Negative for shortness of breath and sleep disturbances due to breathing. Hematologic/Lymphatic: Negative for bleeding problem. Does not bruise/bleed easily. Skin: Negative for poor wound healing. Musculoskeletal: Negative for falls, muscle cramps, muscle weakness, myalgias and neck pain. Gastrointestinal: Negative for dysphagia. Neurological: Negative for aphonia, difficulty with concentration, disturbances in coordination, dizziness, focal weakness, headaches, light-headedness, loss of balance, numbness, paresthesias, seizures, sensory change, vertigo and weakness. Psychiatric/Behavioral: Negative for altered mental status, depression and memory loss. The patient does not have insomnia and is not nervous/anxious. Past Medical History: Diagnosis Date Hyperlipidemia JAK2 V617F mutation Myeloproliferative disorder ([facility]) History reviewed. No pertinent family history. Past Surgical History: Procedure Laterality Date CARPAL TUNNEL RELEASE Bilateral ESOPHAGOGASTRODUODENOSCOPY INSERTION PEG TUBE N/A 01/06/2023 Performed by Cam Miller MD at [facility] HYSTERECTOMY ORIF WRIST WITH BONE GRAFT Left 01/12/2019 Performed by Philip Olsen MD at [facility] RIGHT SIDE CRANIOTOMY EVACUATION HEMATOMA/CRAINECTOMY/EVD INSERTION Right 12/26/2022 Performed by Albino Burton MD at [facility] TRACHEOSTOMY N/A 01/06/2023 Performed by Cam Miller MD at [facility] Current Outpatient Medications Medication Sig Dispense Refill acetaminophen (TYLENOL) 325 mg tablet 2 tablets (650 mg total) every 6 (six) hours as needed. amLODIPine (NORVASC) 5 mg tablet Take 1 tablet (5 mg total) by mouth in the morning. 30 tablet 3 artificial tears,hypromellose, (ISOPTO TEARS) 0.5 % ophthalmic solution Administer 1 drop to both eyes every 2 (two) hours as needed (if heavily sedated or paralyzed). 15 mL 3 aspirin 81 mg chewable tablet Chew 1 tablet (81 mg total) and swallow in the morning. 30 tablet 3 baclofen (LIORESAL) 10 mg tablet Take 0.5 tablets (5 mg total) by mouth in the morning and 0.5 tablets (5 mg total) before bedtime. bisacodyL (DULCOLAX) 10 mg suppository Insert 1 suppository (10 mg total) into the rectum as needed. carvediloL (COREG) 25 mg tablet Take 1 tablet (25 mg total) by mouth in the morning and 1 tablet (25 mg total) before bedtime. (Patient taking differently: Take 0.5 tablets (12.5 mg total) by mouth in the morning and 0.5 tablets (12.5 mg total) before bedtime.) 60 tablet 3 famotidine (PEPCID) 20 mg tablet 1 tablet (20 mg total) in the morning and 1 tablet (20 mg total) before bedtime. heparin sodium,porcine (heparin, porcine,) 5,000 unit/mL syringe Inject 8,000 Units as directed every 8 (eight) hours. HYDROXYUREA ORAL Take 500 mg by mouth in the evening. 3 capsules daily via G tube. ibuprofen (ADVIL,MOTRIN) 200 mg tablet Take 1 tablet (200 mg total) by mouth every 6 (six) hours as needed for pain (pt took equivalent to 800mg of the over the counter). magnesium hydroxide (MILK OF MAGNESIA) 400 mg/5 mL suspension 30 mL as needed. NUEDEXTA 20-10 mg capsule ondansetron ODT (ZOFRAN ODT) 4 mg disintegrating tablet 1 tablet (4 mg total) every 6 (six) hours as needed. polyethylene glycol (GLYCOLAX) 17 gram packet Take 17 g by mouth in the morning. sennosides-docusate sodium (SENNA WITH DOCUSATE SODIUM) 8.6-50 mg Take 1 tablet by mouth in the morning. traZODone (DESYREL) 50 mg tablet Take 1 tablet (50 mg total) by mouth in the morning. carvediloL (COREG) 25 mg tablet 1 tablet (25 mg total) in the morning and 1 tablet (25 mg total) before bedtime. (Patient not taking: Reported on 07/07/2023) insulin lispro (HumaLOG) 100 unit/mL injection Inject 0-0.06 mL (0-6 Units total) under the skin 4 (four) times a day. (Patient not taking: Reported on 07/07/2023) ipratropium-albuteroL (DUONEB) 0.5 mg-3 mg(2.5 mg base)/3 mL nebulizer Inhale 3 mL. (Patient not taking: Reported on 07/07/2023) simvastatin (ZOCOR) 40 mg tablet Take by mouth nightly. (Patient not taking: Reported on 07/07/2023) sod phos di, mono-K phos mono (K-PHOS NEUTRAL) 250 mg tablet 1 tablet in the morning and 1 tablet before bedtime. (Patient not taking: Reported on 07/07/2023) venlafaxine (EFFEXOR) 75 mg tablet Take 2 tablets (150 mg total) by mouth in the morning. (Patient not taking: Reported on 07/07/2023) No current facility-administered medications for this visit. (All medications reviewed and updated by provider since last office visit or hospitalization) Tobacco History: Social History Tobacco Use Smoking Status Every Day Types: Cigarettes Smokeless Tobacco Current (If patient a smoker, smoking cessation counseling offered) Social History: Social History Substance and Sexual Activity Alcohol Use Yes Comment: once in a great while Allergies: No Known Allergies Objective: BP 98/77 Pulse 74 Wt 85.7 kg (189 lb) BMI 27.12 kg/m Last Neuro Imaging: MRI brain WWO contrast: Impression: The overall size of the right hemispheric intraparenchymal hematoma has decreased since 01/07/2023. There is less edema and less mass effect associated with this. There is no pathologic contrast enhancement within the hematoma to suggest underlying tumor. Herniation of brain through the craniectomy defect is again noted. There is no new brain abnormality otherwise. Physical Exam: Neurology Physical Exam NIH Stroke Scale 1a Level of consciousness: 0=alert; keenly responsive 1b. LOC questions: 1=Performs one task correctly 1c. LOC commands: 0=Performs both tasks correctly 2. Best Gaze: 0=normal 3. Visual: 1=Partial hemianopia 4. Facial Palsy: 1=Minor paralysis (flattened nasolabial fold, asymmetric on smiling) 5a. Motor left arm: 4=No movement 5b. Motor right arm: 0=No drift, limb holds 90 (or 45) degrees for full 10 seconds 6a. motor left le=No movement 6b Motor right le=No drift, limb holds 90 (or 45) degrees for full 10 seconds 7. Limb Ataxia: 0=Absent 8. Sensory: 1=Mild to moderate sensory loss; patient feels pinprick is less sharp or is dull on the affected side; there is a loss of superficial pain with pinprick but patient is aware She is being touched 9. Best Language: 2=Severe aphasia; all communication is through fragmentary expression; great need for inference, questioning, and guessing by the listener 10. Dysarthria: 1=Mild to moderate, patient slurs at least some words and at worst, can be understood with some difficulty 11. Extinction and Inattention: 0=No abnormality Total: 15 General Appearance: No apparent distress. Neurologic: Has moderate to severe expressive aphasia. Has complete left sided plegia with contractures in left hand/wrist. Increased tone in left arm. Strength is 0/5 in both LUE and LLE. NIHSS15 MRS: 5 PHQ9: Depression Screening Total Score: 0 Risk Factor Management: Hypertension target range 130-140/70-80 Assessment/Plan: Patient Active Problem List Diagnosis Aortic thrombus ([facility]-HCC) Spasticity as late effect of cerebrovascular accident (CVA) Muscle spasm Cerebrovascular accident (CVA) (CMS-HCC) Skull defect Angelique Melo is a 58 y.o. female with history of JAK2 positive myeloproliferative disorder and thrombocytosis, descending aortic thrombus and history of right frontal intraparenchymal hemorrhage and subarachnoid hemorrhage came to clinic for follow-up. She had right frontal hematoma in setting of supra therapeutic APTT due to IV heparin use for descending aorta thrombus. She was also hypertensive at time of bleeding. MRI brain WWO contrast didn't reveal underlying lesion. Diagnostic angiogram was not done and hemorrhage was believed to be due to AC use vs hypertension. Her exam has improved gradually since last clinic visit. Her current NIHSS is 15 and MRS is 5. Plan: - Will refer to vascular surgery and hematology for descending aortic thrombus and essential thrombocytosis. - Current facility can prescribe Lovenox instead of Heparin injections for DVT prophylaxis once the patient gets discharged to home. - Considering its been 7 months since the hemorrhage, it will be reasonable to start Aspirin, if requested by hematology for JAK2 + thrombocytosis. - Follow up in our clinic in 4 months. This note was completed using a voice transit specialist system. Every effort was made to ensure accuracy; however, inadvertent computerized transit specialist errors may be present Patient was seen and staffed with Dr. Wright - Stroke Attending. ASHVIN XAVIER MD Vascular Neurology Fellow. Attending Attestation: I saw the patient. I participated and was physically present during the critical/mckoy portions of the service. I was directly involved in the management and treatment plan of the patient. I reviewed the resident's note. documented in this encounter [facility] 08-25-2023 Instructions Ashvin Xavier MD - 08/25/2023 11:00 AM EDT - Will refer to vascular surgery and hematology for descending aortic thrombus and essential thrombocytosis. - Please request your facility to prescribe Lovenox instead of Heparin injections for DVT prophylaxis. - Follow up in our clinic in 4 months. documented in this encounter [facility] 07-25-2023 Miscellaneous Notes Multiple calls to [facility] to ask the status of Angelique's pre-operative labs, EKG, and Chest xray. I left a message for Sherita to ask the status and spoke to Tere. I was not able to received any definite information. I let Tere know if I don't have the required pre-operative testing soon there is a chance the surgery will need to be cancelled. Tere was not able to find a nurse to discuss this with them, she will continue to attempt to locate someone and call back with an update. documented in this encounter [facility] 07-25-2023 Telephone encounter Note Multiple calls to [facility] to ask the status of Angelique's pre-operative labs, EKG, and Chest xray. I left a message for Sherita to ask the status and spoke to Tere. I was not able to received any definite information. I let Tere know if I don't have the required pre-operative testing soon there is a chance the surgery will need to be cancelled. Tere was not able to find a nurse to discuss this with them, she will continue to attempt to locate someone and call back with an update. [facility] 07-14-2023 Miscellaneous Notes Sherita from [facility] and stated the patient is currently heparin injections and the patient's Inez wants to know if they can discontinue those injections before she is discharged in about 1 month. Sherita can be reached on her direct line at [phone] That will be determined by her facility physician. We havent seen her since last year. It is for DVT prophylaxis. Despite this, heparin injections are not typically continued on discharge Called and left VM for Sherita about the below information. Left office phone number if they have anymore questions. documented in this encounter [facility] 07-14-2023 Telephone encounter Note Sherita from [facility] and stated the patient is currently heparin injections and the patient's Inez wants to know if they can discontinue those injections before she is discharged in about 1 month. Sherita can be reached on her direct line at [phone] [facility] 07-14-2023 Telephone encounter Note That will be determined by her facility physician. We havent seen her since last year. It is for DVT prophylaxis. Despite this, heparin injections are not typically continued on discharge [facility] Work Phone: 07-14-2023 Telephone encounter Note Called and left VM for Sherita about the below information. Left office phone number if they have anymore questions. [facility] 07-07-2023 History of Present illness Narrative Images from the original note were not included. [facility] [address] [place] [address], [place] [address] * CHART NOTE ? 07/07/2023 Patient: Angelique Melo 1965 [id number] Nurse Practitioner: Gigi Suarez CNP Physician: Albino Burton MD, FAANS IMPRESSION / PLAN 58 y.o. female s/p evacuation of hematoma who is doing very well overall. We will proceed with cranioplasty. HISTORY OF PRESENT ILLNESS 58 y.o. female presents to the clinic as a follow up for s/p right side craniotomy evacuation hematoma performed on 12/26/22. Patient presents with her today who advises that she has not regained much control of her right side. Patient's imaging was discussed and reviewed to their understanding in office today. Denies headaches, stroke symptoms, and seizure activity. SOCIAL HISTORY Social History Socioeconomic History Marital status: Spouse name: Not on file Number of children: Not on file Years of education: Not on file Highest education level: Not on file Occupational History Not on file Tobacco Use Smoking status: Every Day Types: Cigarettes Smokeless tobacco: Current Substance and Sexual Activity Alcohol use: Yes Comment: once in a great while Drug use: Never Sexual activity: Defer Other Topics Concern Not on file Social History Narrative Not on file Social Determinants of Health Financial Resource Strain: Not on file Food Insecurity: No Food Insecurity (03/10/2023) Hunger Screening Food Insecurity - Worry: Never True Food Insecurity - Inability: Never True Transportation Needs: Not on file Physical Activity: Not on file Stress: Not on file Social Connections: Not on file Interpersonal Safety: Not on file Housing Instability: Low Risk (01/11/2023) Housing Instability Housing Instability: No REVIEW OF SYSTEMS ROS Positive Findings: Negative otherwise noted in the HPI PHYSICAL EXAMINATION Aphasic She has baseline left spastic hemiparesis Incision has healed DIAGNOSTIC CT brain was completed on 06-10-2023 and shows stable postop changes with evidence of encephalomalacia, no hydro. I reviewed the imaging studies independently and critical findings were anotated for the patient. Electronically Signed By: Albino Burton MD This note was created with the assistance of a speech recognition program with the goal of generating a timely record of the patient encounter. Inadvertent computerized transit specialist errors related to syntax, spelling, homophones, and/or inaudibility may be present. Scribe Statement: Scribed for and in the presence of Albino Burton MD by Zaki Miller. Provider Statement: I, Albino Burton MD personally performed the services described in the documentation, as scribed by Zaki Miller in my presence, and it is both accurate and complete [facility] Instructions Fran Olmedo - 07/07/2023 11:30 AM EDT Pt saw Dr Burton Surgery was offered Right autologous crani Check ESR, CRP blood culturesx2 Lilliam will contact spouse to schedule surgery RT documented in this encounter [facility] 07-06-2023 Miscellaneous Notes What is the reason for the call? To reschedule the patients appointment for 08/18/2023 If appointment requested, what is the reason for the appointment? Is there a referral in the chart? Were they seen in the hospital? What hospital were they seen at? What is a good call back number? Daysi at [phone] Okay to reschedule. Note patient did go to facility so they need to be aware also. If the concern is because they are in facility, we would still recommend seeing patient and they can set up transportation. Received a call from Jakob to reschedule patient's appointment due to transportation. The light truck driver for [facility] already has a patient to bring up to our office the day patient was scheduled and Jakob stated this patient would need a different appointment on a different day. Jakob direct line is [phone] Please advise Tere contacted our office again stating that she needs to schedule a follow up with the stroke clinic for the patient to be seen after her CT scan. Please advise and contact Tere at [phone] Returned call. Rescheduled for 08/24 documented in this encounter [facility] 07-06-2023 Telephone encounter Note What is the reason for the call? To reschedule the patients appointment for 08/18/2023 If appointment requested, what is the reason for the appointment? Is there a referral in the chart? Were they seen in the hospital? What hospital were they seen at? What is a good call back number? Daysi at [phone] [facility] 07-06-2023 Telephone encounter Note Okay to reschedule. Note patient did go to facility so they need to be aware also. If the concern is because they are in facility, we would still recommend seeing patient and they can set up transportation. [facility] 07-06-2023 Telephone encounter Note Received a call from Jakob to reschedule patient's appointment due to transportation. The light truck driver for [facility] already has a patient to bring up to our office the day patient was scheduled and Jakob stated this patient would need a different appointment on a different day. Jakob direct line is [phone] Please advise [facility] 07-06-2023 Telephone encounter Note Tere contacted our office again stating that she needs to schedule a follow up with the stroke clinic for the patient to be seen after her CT scan. Please advise and contact Tere at [phone] [facility] 07-06-2023 Telephone encounter Note Returned call. Rescheduled for 08/24 [facility] 03-02-2023 Miscellaneous Notes Received call today 03/02/23 8:46 from Abi [facility] who stated that patient had craniotomy a couple months ago and she's noticed in the last few days that it is more swollen. She wanted to know if this was measured after she had the procedure and is requesting call back for medical advice. Please call back and advise, direct callback#: [phone]. Will need to call neurosurgery. Called Abi [...] CT scan that is scheduled on 06/10/2023. Pin Cleaner did inform her that neurosurgery was not [...] appt to the same day. Please advise. Pin Cleaner received a call from Daysi with [facility]. Daysi is asking if appointment that is scheduled for 05/05/2023 at 9:30 could please be scheduled on the same day with Neurosurgery appointment. Appointment with Neurosurgery is 06/14/2023 at 2:30pm. Daysi is requesting appointment to either before 2:30pm or after, as long as it is on the same day. Please Advise. Daysi is requesting a call back [phone] to further discuss. Thank you so much [...] call today 04/07/23 1:43 from Tere at [facility] who is requesting a call back in regard to previous message. She said that she got some dates/times from the other provider's office. Please call back and advise, callback#: [phone]. Spoke with Lashaun and correlated Dr Hutchinson appt on the same day as ours documented in this encounter [facility] 03-02-2023 Telephone encounter Note Received call today 03/02/23 8:46 from Abi [facility] who stated that patient had craniotomy a couple months ago and she's noticed in the last few days that it is more swollen. She wanted to know if this was measured after she had the procedure and is requesting call back for medical advice. Please call back and advise, direct callback#: [phone]. [facility] [employer] [facility] 03-02-2023 Telephone encounter Note Will need to call neurosurgery. [facility] 03-02-2023 Telephone encounter Note Called Abi and informed her that if it is about surgery site, she should call neurosurgery and provided the number for it. She voiced understanding. [facility] 03-02-2023 Telephone encounter Note Daysi with Transportation is asking for the appointment (05/05/2023) with stroke to rescheduled on same day with the patients appointment (06/09/2023) with neurosurgery. Also, she is asking for the appointment to be schedule after the CT scan that is scheduled on 06/10/2023. Pin Cleaner did inform her that neurosurgery was not in our office, she asked to clinical staff to make arrangements with neurosurgery. Please advise [facility] 03-02-2023 Telephone encounter Note Daysi contacted our office back stating that both appts (neurology and neurosurgery) need to be moved to after the appt for her CT scan which is on 06/10/2023. She was transferred to Neurosurgery to reschedule that appt and once that appt is rescheduled we could possibly reschedule our appt to the same day. Please advise. [facility] 03-02-2023 Telephone encounter Note Pin Cleaner received a call from Daysi with [facility]. Daysi is asking if appointment that is scheduled for 05/05/2023 at 9:30 could please be scheduled on the same day with Neurosurgery appointment. Appointment with Neurosurgery is 06/14/2023 at 2:30pm. Daysi is requesting appointment to either before 2:30pm or after, as long as it is on the same day. Please Advise. Daysi is requesting a call back [phone] to further discuss. Thank you so much [facility] 03-02-2023 Telephone encounter Note Called facility back and it rang until it changed to busy tone Called transportation back and no answer This patient follows care under the fellows and they are only here on afternoons. [facility] [employer] 03-02-2023 Telephone encounter Note Called facility Lashaun answered they're trying to make the appts on the same day so that its easier on the patient. She is going to talk to Dr Hutchinson office and see if they have something they may correlate on a [facility] [employer] 03-02-2023 Telephone encounter Note Received call today 04/07/23 1:43 from Tere at [facility] who is requesting a call back in regard to previous message. She said that she got some dates/times from the other provider's office. Please call back and advise, callback#: [phone]. [facility] [employer] 03-02-2023 Telephone encounter Note Spoke with Lashaun and correlated Dr Hutchinson appaislinn on the same day as ours [facility] 12-29-2020 Evaluation note Encounter Date Diagnosis [...] Patient care instructions given in writting by [facility] Home document. [address] Other Evaluation noteNo assessment information available [facility] Work Phone: Evaluation note* Diagnosis History of spontaneous intraparenchymal intracranial hemorrhage associated with coagulopathy- Primary JAK2 positive polycythemia vera ([facility]-HCC) Aortic thrombus ([facility]-HCC) documented in this encounter [facility]* Diagnosis Cerebrovascular accident (CVA) (CMS-HCC) Skull defect Aortic thrombus (CMS-HCC)- Primary Cerebrovascular accident (CVA), unspecified mechanism (CMS-HCC) Skull defect documented in this encounter [facility]* Diagnosis Cerebrovascular accident (CVA) (CMS-HCC) Skull defect Cerebrovascular accident (CVA), unspecified mechanism (CMS-HCC)- Primary Skull defect Pre-op testing Unspecified pre-operative examination Cerebrovascular accident (CVA), unspecified mechanism (CMS-HCC) Skull defect documented in this encounter [facility]* Diagnosis Cerebrovascular accident (CVA) (CMS-HCC) Skull defect Abnormal finding on urinalysis- Primary Cerebrovascular accident (CVA), unspecified mechanism (CMS-HCC) Skull defect documented in this encounter [facility]* Diagnosis Skull defect- Primary documented in this encounter [facility]* Diagnosis 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 [facility] Diagnosis Cerebrovascular accident (CVA), unspecified mechanism (CMS-HCC)- Primary Skull defect [facility] Diagnosis Bilateral carotid artery stenosis- Primary Occlusion and stenosis of carotid artery without mention of cerebral infarction 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 Claudication (CMS-HCC) Unspecified peripheral vascular disease [facility] Diagnosis Status post craniotomy- Primary Other postprocedural status [facility]* Diagnosis Bilateral carotid artery stenosis- Primary Occlusion and stenosis of carotid artery without mention of cerebral infarction 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 Aneurysm of ascending aorta without rupture (CMS-HCC) Multinodular thyroid Nontoxic multinodular goiter Kidney lesion, [place], left Adrenal nodule (CMS-HCC) Benign neoplasm of adrenal gland documented in this encounter [facility] - Reported* Type Description Date Surgical History carpal tunnel release- bilatera l Surgical History hysterectomy Surgical History ORIF left wrist [address] Other InstructionsNot on filedocumented in this encounter [facility] filedocumented in this encounter [facility] filedocumented in this encounter [facility] on filedocumented in this encounter [facility] on filedocumented in this encounter [facility] on filedocumented in this encounter [facility] on filedocumented in this encounter [facility] on filedocumented in this encounter [facility]Not on filedocumented in this encounter [facility]ructionsNot on filedocumented in this encounter [facility] for [facility] (narrative)* Consultation (Routine) - Pending Review Specialty Diagnoses / Procedures Referred By Kimberly tao Referred To Contact Vascular Surgery Diagnoses JAK2 positive polycythemia vera (CMS-HCC) Aortic thrombus (CMS-HCC) Ali Ashvin, MD [address] [place] [id number] [facility] Vascular Surg [address] [place] [address] Phone: Referral ID Status Reason Start Date Expiration Date Visits Requested Visits Authorized [id number] Pending Review Specialty Services Required 08/25/2023 08/24/2024 1 1 * Consultation (Routine) - Pending Review Specialty Diagnoses / Procedures Referred By Contac t Referred To Contact Hematology Diagnoses JAK2 positive polycythemia vera (CMS-HCC) Aortic thrombus (CMS-HCC) Ashvin Xavier MD [address] [place] [address] [facility] Benign Hematology [address] [facility] [address] [place] [address] Referral ID Status Reason Start Date Expiration Date V isits Requested Visits Authorized [id number] Pending Review 08/25/2023 08/24/2024 1 1 [facility] Consultation (Routine) - Pending Review Specialty Diagnoses / Procedures Referred By Contac t Referred To Contact Vascular Surgery Diagnoses 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[facility]) Eligio Mendez MD [address] [place] [address] [address] [place] [address] Phone: Rhoda Urrutia, [address] [place] [address] Referral ID Status Reason Start Date Expiration Date Visits Requested Visits Authorized [id number] Pending Review Specialty Services Required 11/02/2023 11/01/2024 1 1 [facility] ([facility])* Consultation (Routine) - Pending Review Specialty Diagnoses / Procedures Referred By Kimberly t Referred To Contact Neurology Diagnoses Status post craniotomy Gigi Suarez, ANDREA [address] [place] [address] [facility] Neurology [address] [facility] [place] [address] Referral ID Status Reason Start Date Expiration Date Visits Requested Visits Authorized [id number] Pending Review Specialty Services Required 11/22/2023 11/21/2024 1 1 [facility] [employer] [facility] Summary Purpose Family History Relationship Condition Age at Onset Recorded Date/T marge Not Specified Cerebrovascular accident (CVA) Unknown Degeneration of intervertebral disc Unkno wn sister Degeneration of intervertebral disc Unkno wn father Hodgkin lymphoma Unknown Relationship Condition Age at Onset Recorded Date/T marge mother Cerebrovascular accident (CVA) Unknown Degeneration of intervertebral disc Unkno wn sister Degeneration of intervertebral disc Unkno wn father Hodgkin lymphoma Unknown mother Unknown Advance Directives Documents on File Type Date Recorded 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 DNR Physician Order 01/18/2023 4:20 PM Latest Code Status on File Code Status Date Activated Date Inactivated Comments DNR Comfort Care Arrest (DNR-CCA) [place] 12/31/2022 11:45 AM 01/11/2023 7:55 PM Code Status History Code Status Date Activated Date Inactivated Comments Full Code 12/26/2022 4:32 AM 12/31/2022 11:45 AM Documents on File Type Date Recorded 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 anation DNR Physician Order 01/18/2023 4:20 PM Date Activated Date Inactivated Comments 10/10/2023 1:41 PM 10/12/2023 6:38 PM Date Activated Date Inactivated Comments 12/31/2022 11:45 AM 01/11/2023 7:55 PM Date Activated Date Inactivated Comments 12/26/2022 4:32 AM 12/31/2022 11:45 AM Latest Code Status on File Code Status Date Activated Date Inactivated Comments DNR Comfort Care Arrest (DNR-CCA) [place] 12/31/2022 11:45 AM 01/11/2023 7:55 PM Code Status History Code Status Date Activated Date Inactivated Comments Full Code 12/26/2022 4:32 AM 12/31/2022 11:45 AM Advance Directive Response Recorded Date/ Time Advance Directives No June 05, 021 11:39am Advance Directive Response Recorded Date/ Time Advance Directives No June 05 021 12:39pm Date Activated Date Inactivated Comments 12/31/2022 11:45 AM 01/11/2023 7:55 PM Date Activated Date Inactivated Comments 12/26/2022 4:32 AM 12/31/2022 11:45 AM Date Activated Date Inactivated Comments 12/31/2022 11:45 AM 01/11/2023 7:55 PM Date Activated Date Inactivated Comments 12/26/2022 4:32 AM 12/31/2022 11:45 AM Date Activated Date Inactivated Comments 10/10/2023 1:41 PM 10/12/2023 6:38 PM Date Activated Date Inactivated Comments 12/31/2022 11:45 AM 01/11/2023 7:55 PM Date Activated Date Inactivated Comments 12/26/2022 4:32 AM 12/31/2022 11:45 AM Reason for Referral Status Reason Specialty Diagnoses / Procedures Referre d By Contact Referred To Contact Closed Radiology Diagnoses Right knee pain, unspecified chronicity Procedures MRI KNEE RIGHT WO CONTRAST Alex Pritchett MD [address] [place] [address] Specialty Diagnoses / Procedures Referred By Contac t Referred To Contact Procedures Botox Injection For Cervical Dystonia Valentin Velarde MD [address] [facility], [address] [place] [address] Referral ID Status Reason Start Date Expiration Date V isits Requested Visits Authorized [id number] Pending Review 05/23/2023 05/22/2024 4 4 Specialty Diagnoses / Procedures Referred By Contac t Referred To Contact Diagnoses Pre-op testing Procedures ECG 12 lead Pradip Bee MD [address] [place] [address] Referral ID Status Reason Start Date Expiration Date V isits Requested Visits Authorized [id number] Pending Review 09/26/2023 09/25/2024 1 1 Specialty Diagnoses / Procedures Referred By Contac t Referred To Contact Diagnoses Bilateral carotid artery stenosis Procedures Vas carotid duplex bilateral Rhoda Urrutia, DO [address] [facility] [place] [address] [place] [address] [place] [address] [place] [address] Phone: [phone] Referral ID Status Reason Start Date Expiration Date V isits Requested Visits Authorized [id number] Pending Review 11/14/2023 11/13/2024 1 1 Specialty Diagnoses / Procedures Referred By Contac t Referred To Contact Diagnoses Claudication ([facility]) Procedures Vas art doppler lwr bilat mult lev/PVR Rhoda Urrutia, DO [address] 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[facility]) Procedures CT angiogram abdomen and pelvis Rhoda Urrutia DO [address] [place] [address] Referral ID Status Reason Start Date Expiration Date V isits Requested Visits Authorized [id number] Pending Review 12/12/2023 12/11/2024 1 1 Specialty Diagnoses / Procedures Referred By Contac t Referred To Contact Radiology Diagnoses 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[facility]) Procedures CT angiogram chest Rhoda Urrutia DO [address] [place] [address] Referral ID Status Reason Start Date Expiration Date V isits Requested Visits Authorized [id number] Pending Review 12/12/2023 12/11/2024 1 1 Specialty Diagnoses / Procedures Referred By Contac t Referred To Contact Diagnoses Bilateral carotid artery stenosis Procedures Vas carotid duplex bilateral Rhoda Urrutia DO [address] [place] [address] Referral ID Status Reason Start Date Expiration Date V isits Requested Visits Authorized [id number] Pending Review 12/12/2023 12/11/2024 1 1 Assessments Diagnosis Right knee pain, unspecified chronicity Chief Complaint and Reason for Visit Chief Complaint Knee Pain Chief Complaint Knee Pain Knee Pain Chief Complaint Admit Date Unknown February 03, 2024 9 :00am Additional Source Comments INFORMATION SOURCE (unrecogn ized section and content) DATE CREATED AUTHOR 03/30/2018 [facility] DATE CREATED AUTHOR AUTHOR'S ORGANIZ ATION 05/12/2020 [facility] DATE CREATED AUTHOR AUTHOR'S ORGANIZ ATION 08/03/2022 [facility] DATE CREATED AUTHOR AUTHOR'S ORGANIZ ATION 11/05/2023 [facility] DATE CREATED AUTHOR AUTHOR'S ORGANIZ ATION 12/13/2023 [facility] DATE CREATED AUTHOR AUTHOR'S ORGANIZ ATION 02/13/2024 [facility] DATE CREATED AUTHOR AUTHOR'S ORGANIZ ATION 05/10/2024 [facility] Reason for Visit (unrecogniz ed section and content) Status Reason Specialty Diagnoses / Procedures Referre d By Contact Referred To Contact Closed Radiology Diagnoses Right knee pain, unspecified chronicity Procedures MRI KNEE RIGHT WO CONTRAST Alex Pritchett MD [address] [place] [address] Reason Onset Date Comments Heparin 07/14/2023 Reason Onset Date Comments status of pre-op labs, EKG, Chest Xray Reason Onset Date Comments Post-op Craniotomy 03/02/2023 Reason Onset Date Comments antibiotic 10/05/2023 Reason Comments Suture / Staple Removal Reason Comments 1 month with repeat CBC Reason Comments Follow-up 3 month F/u Brain/sc heduled in coordination with neuro Reason Onset Date Comments reschedule appointment 07/06/2023 Reason Comments Cerebrovascular Accident New patient- Hx of stroke, abdominal aorta thrombosis Specialty Diagnoses / Procedures Referred By Contac t Referred To Contact Vascular Surgery Diagnoses 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 CT of the chest done also. Care Teams (unrecognized sec tion and content) Team Status: Inactive Member Role Status Dates Ena Tran NP-C Attending Provider Active Start: February 03, 2024 End: February 03, 2024 [employer] Relationship Specialty Start Date End Date Alex Pritchett MD PCP - General Family Medicine 01/22/19 [employer] Relationship Specialty Start Date End Date Alex Pritchett MD [address] [place] [id number] PCP - General Family Medicine 01/22/19 [employer] Relationship Specialty Start Date End Date Alex Pritchett MD [address] [id number] PCP - General Family Medicine 01/22/19 [employer] Relationship Specialty Start Date End Date Alex Pritchett MD PCP - General Family Medicine 01/22/19 [employer] Relationship Specialty Start Date End Date Alex Pritchett MD [address] [place], [place] [id number] PCP - General Family Medicine 01/22/19 [employer] Relationship Specialty Start Date End Date Alex Pritchett MD [address] [place], [place] [id number] PCP - General Family Medicine 01/22/19 [employer] Relationship Specialty Start Date End Date Alex Pritchett MD [address] [place], [place] [id number] PCP - General Family Medicine 01/22/19 [employer] Relationship Specialty Start Date End Date Alex Pritchett MD [address] [place] [address] PCP - General Family Medicine 01/22/19 [employer] Relationship Specialty Start Date End Date Alex Pritchett MD [address] [place] [id number] PCP - General Family Medicine 01/22/19 [employer] Relationship Specialty Start [place] [address] [place], [place] [id number] PCP - General Family Medicine 01/22/19 [employer] Relationship Specialty Start [place] [address] [place], [place] [id number] PCP - General Family Medicine 01/22/19 [employer] Relationship Specialty Start [place] [address] [place], [place] [id number] PCP - General Family Medicine 01/22/19 [employer] Relationship Specialty Start [place] [address] [place], [place] [id number] PCP - General Family Medicine 01/22/19 [employer] Relationship Specialty Start Date End Date Alex Pritchett MD PCP - General Family Medicine 01/22/19 [employer] Relationship Specialty Start Date End Date Alex Pritchett MD PCP - General Family Medicine 01/22/19 [employer] Relationship Specialty Start Date End Date Alex Pritchett MD PCP - General Family Medicine 01/22/19 [employer] Relationship Specialty Start Date End Date Alex Pritchett MD PCP - General Family Medicine 01/22/19 Goals (unrecognized section and content) Goals may be documented in a n alternate section FOR RECORDS PERTAINING TO PATIENTS WHO ARE [...] BE BASED ON THE PRIMARY CLINICAL RECORDS. [facility] [employer] [facility] provides no warranty or guarantee of the accuracy or completeness of information in this document.
[2024-06-25 17:18] LABS: Bacteria Urine LARGE #/HPF (NONE SEEN); Cast Seen? NONE SEEN #/LPF (NONE SEEN); Crystals Seen? None Seen #/HPF (None Seen); Mucus Urine NONE SEEN (NONE SEEN); Squamous Epithelial Cell Urine FEW #/LPF (NONE/RARE); Urine Culture Indicated ALREADY ORDERED
== END 2024-06-25 16:41 | disposition home or self-care (01) ==
LOC: LAB 16:40
PROVIDERS: PCP Family Medicine; Visit Provider Family Medicine
DX: R39.9 Unspecified symptoms and signs involving the genitourinary system (principal)
CPT/HCPCS: 81001; 87086

== ENCOUNTER 2024-11-23 09:50 | Outpatient (OUT) | payer OTHER, SELFPAY ==
--- OUTSIDE RECORDS SUMMARY | 2024-11-23 09:59 | XMS_ITS | CCD ---
Author Organization [facility] Care Team Providers Care Mortgage Manager Name Role Phone Nill, Malik R Unavailable Unavailable Nill, Malik R Unavailable Unavailable Nill, Malik R Unavailable Unavailable Hoy, Rama~[phone] UNKNOWN Unavailable Unavailable HOY, RAMA M Referring Unavailable HOY, RAMA M Primary Care Unavailable Hoy, Rama M Primary Care Provider Rama Pritchett Primary Care Provider [phone] Sesar Gutiérrez Attending Provider Chhaya Spivey Unavailable [...] Unavailable HOY ., DR ONTIVEROS Consulting Unavailable LAZBUDDIE, DR FRANCES Del Valle Consulting Unavailable FRANCES NICHOLS Consulting Unavailable ALBINO BURTON Attending Unavailable HOY, RAMA M Referring Unavailable HOY, RAMA M Primary Care Unavailable HOY, RAMA M Referring Unavailable HOY, RAMA M Primary Care Unavailable HOY, RAMA M Referring Unavailable HOY, RAMA M Primary Care Unavailable RHODA URRUTIA Attending Unavailable ELIGIO MENDEZ Referring Unavailable HOY, RAMA M Primary Care Unavailable HOY, RAMA M Referring Unavailable HOY, RAMA M Primary Care Unavailable GIGI SUAREZ Attending Unavailable RHODA URRUTIA Attending Unavailable HOY, RAMA M Referring Unavailable HOY, RAMA M Primary Care Unavailable Chelsea REGULATED PROGRAM MANAGER-C, Ena Marlow Attending Provider Rama Pritchett MD Primary Care Provider [phone] Rama Pritchett MD Primary Care Provider [phone] Rama Pritchett MD Attending Provider [phone] Ena Tran Admitting Unavailable Ena Tran Attending Unavailable Hoy, Rama M Admitting Unavailable Shreyas, Rama Romo Attending Unavailable Rama Pritchett MD Primary Care Provider [phone] OELIGIO RAYMUNDO Attending Unavailable HOY, RAMA M Referring Unavailable HOY, RAMA M Primary Care Unavailable OOSTRA, ELIGIO Alfaro Referring Unavailable HOY, RAMA M Primary Care Unavailable OOSTRA, ELIGIO Alfaro Attending Unavailable HOY, RAMA M Referring Unavailable HOY, RAMA M Primary Care Unavailable HOY, RAMA M Primary Care Unavailable REINARD, ALBINO A Referring Unavailable HOY, RAMA M Primary Care Unavailable REINALBINO FERMIN A Admitting Unavailable ALBINO BURTON A Attending Unavailable HOY, RAMA M Primary Care Unavailable RHODA URRUTIA Attending Unavailable URRUTIA, RHODA M Referring Unavailable HOY, RAMA M Primary Care Unavailable URRUTIARHODA Attending Unavailable URRUTIA, RHODA M Referring Unavailable HOY, RAMA M Primary Care Unavailable OOSTRA, ELIGIO Alfaro Referring Unavailable HOY, RAMA M Primary Care Unavailable OOSTRA, ELIGIO Alfaro Referring Unavailable HOY, RAMA M Primary Care Unavailable Unavailable Unavailable Unavailable Allergies Allergy Classification Reported Allergen(s) Allergy Type Date of Onset Reaction(s) Facility (1 source) No Known Medication Allergies; Translations: [No Known Medication Allergies] Propensity to adverse reactions (disorder) [facility] Repository Medications Current Medications Medication Drug [...] Platelet Aggregation Inhibitor, Nonsteroidal Anti-inflammatory Drug Start: 10-16-2024 take 1 tablet by mouth in the morning MORELIA LOW DOSE ASPIRIN 81 mg Indications: Essential thrombocytosis (CMS-HCC) , JAK2 V617F mutation TAKE 1 TABLET BY MOUTH IN THE MORNING 90 tablet 3 10/16/2024 Active Start: 11-02-2023 End: 11-01-2024 take 1 tablet by mouth in the morning aspirin 81 mg Indications: Essential thrombocytosis (CMS-HCC) , JAK2 V617F mutation Take 1 tablet (81 mg total) by mouth in the morning. 90 tablet 3 11/02/2023 10/16/2024 Discontinued Start: 10-17-2023 End: 11-02-2023 aspirin 81 mg [...] Active calcium carbonate 1250 mg oral tablet (2 sources) Start: 2020 take 1 tablet by mouth once daily Calcium Carbonate (Calcium 500) 500 mg calcium (1,250 mg) Tablet Active 500 MG PO Daily June 11, 2020 12:00am carvedilol 25 mg oral tablet (20 sources) [...] 7 days. 14 tablet 10/05/2023 10/12/2023 Active docusate sodium 50 mg / sennosides, long-term 8.6 mg oral tablet (20 sources) sennosides-docus [...] capsule (20 sources) Antimetabolite Start: 2023 take 1 capsule by mouth once daily hydroxyurea (HYDREA) 500 mg chemo capsule Take 1 capsule by mouth daily 09/27/2023 Active Start: 09-27-2023 take 2 capsules by m outh once daily hydroxyurea (HYDREA) 500 mg chemo [...] chloride 20 meq extended release oral tablet (16 sources) Start: 09-08-2023 potassium chloride (K-TAB,KLOR-CON) 20 mEq CR tablet Take 1 tablet (20 mEq total) by mouth every morning. 09/08/2023 Active simvastatin 40 mg oral tablet (20 sources) HMG-CoA Reductase Inhibitor Start: 06-11-2020 take 1 tablet by mouth once daily Simvastatin 40 mg Tablet Active 40 MG PO Daily June 11, 2020 12:00am traZODone hydrochloride 50 mg oral tablet (20 [...] Tablet Active 75 MG PO Daily June 11, 2020 12:00am take 2 tablets by mouth once debbie [...] mg oral capsule (7 sources) Antiarrhythmic, Uncompetitive A-ldtrmc-P-aspartate Receptor Antagonist, Cytochrome P450 2D6 Inhibitor, Sigma-1 Agonist Start: 07-03-2023 End: 09-26-2023 NUEDEXTA 20-10 mg capsule 07/03/2023 09/26/2023 Discontinued (Therapy completed) diclofenac sodium 75 mg delayed release oral tablet (4 sources) Nonsteroidal Anti-inflammatory Drug Start: 06-06-2020 End: 06-11-2020 take 1 tablet by mouth once daily Diclofenac Sodium 75 mg tablet,delayed release (DR/EC) Discontinued 75 MG PO Daily June 06, 2020 1:00am June 11, 2020 11:23am 0.4 ml enoxaparin sodium 100 mg/ml prefilled [...] 09/26/2023 Discontinued (Therapy completed) polyethylene glycol 3350 60033 mg powder for oral solution (10 sources) [...] Date Episodic/Chronic Acute cerebrovascular disease (20 sources) Cerebrovascular accident; Translations: [Cerebral infarction, unspecified] Onset: 01-11-2023 07-15-2023 Chronic Aortic and peripheral arterial embolism or thrombosis (20 sources) Other arterial embolism and thrombosis of abdominal aorta; Translations: [Thrombosis of aorta] Onset: 12-26-2022 12-26-2022 Chronic Aortic; peripheral; and visceral artery aneurysms (1 source) Aneurysm of ascending aorta; Translations: [Aneurysm of ascending aorta without rupture ([facility]-H[facility])] 12-23-2023 Chronic Late effects of cerebrovascular disease (20 sources) Spasticity as sequela of stroke; Translations: [Other sequelae of cerebral infarction] Onset: 04-21-2023 04-21-2023 Chronic Neoplasms of unspecified nature or uncertain behavior (16 sources) Essential thrombocythemia; Translations: [Essential (hemorrhagic) thrombocythemia] Onset: 11-02-2023 11-02-2023 Chronic Nutritional deficiencies [...] [Other specified postprocedural states] Onset: 11-22-2023 Episodic Residual codes; unclassified (13 sources) Genetic mutation; Translations: [Genetic susceptibility to other disease] Onset: 11-02-2023 11-02-2023 Episodic Thyroid disorders (1 source) Multinodular goiter; Translations: [Nontoxic multinodular goiter] 12-23-2023 Chronic Unclassified (1 source) Carotid Artery Disease Onset: 12-12-2023 Unclassified (1 source) Post-op Onset: 11-22-2023 Unclassified (1 source) 1 month with repeat CBC Onset: 11-02-2023 Past or Other Problems Problem Classification Problem [...] [OTHER FATIGUE] Onset: 02-27-2022 Episodic Mood disorders (19 sources) Mood disorders Onset: 08-25-2023 Resolved: 10-10-2023 10-10-2023 Other acquired deformities (2 sources) Other acquired deformity of head; Translations: [Other acquired deformity of head] Onset: 07-07-2023 Episodic Other acquired deformities (20 sources) Skull finding; Translations: [Other acquired deformity of head] Onset: 07-13-2023 07-15-2023 Episodic Other aftercare (1 source) 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; Translations: [OTH SKILLED NURSING CURRENT DRUG THERAPY] Onset: 02-27-2022 Episodic Other bone disease and musculoskeletal deformities (1 source) Other specified disorders of bone density and structure, other site; Translations: [OTH D/O BONE DEN STRUCT OTH SITE] Onset: 03-26-2022 Episodic Other circulatory disease (1 source) History of cerebral hemorrhage; Translations: [Personal history of other diseases of the circulatory system] 08-30-2023 Episodic Other connective tissue disease (20 sources) [...] HEMATPOETC] Onset: 03-26-2022 Episodic Residual codes; unclassified (1 source) History of craniotomy; Translations: [Other specified postprocedural states] 11-22-2023 Episodic Residual codes; unclassified (2 sources) Genetic susceptibility to other disease; Translations: [Genetic susceptibility to other disease] Onset: 11-02-2023 Episodic Results Test Name Value Interpretation Reference Range Facility CBC WITH AUTO DIFFERENTIALon 10-02-2024 CELLAVISION BASOPHILS ABSOLUTE COUNT (10*3/UL) BY MANUAL COUNT 0.1 10*3/uL Normal 0.0-0.2 [facility] Comment on above: Result Comment: This is an appended report. These results have been appended to a previously preliminary verified report. Performed By: #### C BCA #### [facility] ([facility]) [address] [place] [address] VIR CELLAVISION BASOPHILS RELATIVE PERCENT BY MANUAL COUNT 1 % Normal [facility] Comment on above: Result Comment: This is an appended report. These results have been appended to a previously preliminary verified report. Performed By: #### C BCA #### [facility] ([facility]) [address] [place] [address] VIR CELLAVISION DIFFERENTIAL TYPE CELLAVISION DIFFERENTIAL Normal [facility] Comment on above: Result Comment: This is an appended report. These results have been appended to a previously preliminary verified report. Performed By: #### C BCA #### [facility] ([facility]) [address] [place] [address] VIR CELLAVISION EOSINOPHILS ABSOLUTE COUNT (10*3/UL) BY MANUAL COUNT 0.1 10*3/uL Normal 0.0-0.4 [facility] Comment on above: Result Comment: This is an appended report. These results have been appended to a previously preliminary verified report. Performed By: #### C BCA #### [facility] ([facility]) [address] [place] [address] VIR CELLAVISION EOSINOPHILS PERCENT BY MANUAL COUNT 1 % Normal [facility] Comment on above: Result Comment: This is an appended report. These results have been appended to a previously preliminary verified report. Performed By: #### C BCA #### [facility] ([facility]) [address] [place] [address] VIR CELLAVISION LYMPHOCYTES ABSOLUTE COUNT (10*3/UL) BY MANUAL COUNT 1.9 10*3/uL Normal 1.0-3.5 [facility] Comment on above: Result Comment: This is an appended report. These results have been appended to a previously preliminary verified report. Performed By: #### C BCA #### [facility] ([facility]) [address] [place] [address] VIR CELLAVISION LYMPHOCYTES RELATIVE PERCENT BY MANUAL COUNT 35 % Normal [facility] Comment on above: Result Comment: This is an appended report. These results have been appended to a previously preliminary verified report. Performed By: #### C BCA #### [facility] ([facility]) [address] [place] [address] VIR CELLAVISION MONOCYTES ABSOLUTE COUNT (10*3/UL) IN BLOOD BY MANUAL COUNT 0.4 10*3/uL Normal 0.0-0.9 [facility] Comment on above: Result Comment: This is an appended report. These results have been appended to a previously preliminary verified report. Performed By: #### C BCA #### [facility] ([facility]) [address] [place] [address] VIR CELLAVISION MONOCYTES RELATIVE PERCENT BY MANUAL COUNT 8 % Normal [facility] Comment on above: Result Comment: This is an appended report. These results have been appended to a previously preliminary verified report. Performed By: #### C BCA #### [facility] ([facility]) [address] [place] [address] VIR CELLAVISION NEUTROPHILS ABSOLUTE COUNT BY MANUAL COUNT 2.9 10*3/uL Normal 1.5-6.6 [facility] Comment on above: Result Comment: This is an appended report. These results have been appended to a previously preliminary verified report. Performed By: #### C BCA #### [facility] ([facility]) [address] [place] [address] VIR CELLAVISION NEUTROPHILS RELATIVE PERCENT BY MANUAL COUNT 55 % Normal [facility] Comment on above: Result Comment: This is an appended report. These results have been appended to a previously preliminary verified report. Performed By: #### C BCA #### [facility] ([facility]) [address] [place] [address] VIR CELLAVISION RBC MORPHOLOGY Normal Normal [facility] Comment on above: Result Comment: This is an appended report. These results have been appended to a previously preliminary verified report. Performed By: #### C BCA #### [facility] ([facility]) [address] [place] [address] VIR Erythrocyte distribution width (RBC) [Ratio] 14.5 % Normal 11.5-15 [facility] Comment on above: Performed By: #### C BCA #### [facility] ([facility]) [address] [place] [address] VIR Hematocrit (Bld) [Volume fraction] 38.7 % Normal 35-47 [facility] Comment on above: Performed By: #### C BCA #### [facility] ([facility]) [address] [place] [address] VIR Hemoglobin (Bld) [Mass/Vol] 12.9 g/dL Normal 11.7-15.5 [facility] Comment on above: Performed By: #### C BCA #### [facility] ([facility]) [address] [place] [address] VIR MCH (RBC) [Entitic mass] 34.7 pg High 27-34 [facility] Comment on above: Performed By: #### C BCA #### [facility] ([facility]) [address] [place] [address] VIR MCHC (RBC) [Mass/Vol] 33.4 g/dL Normal 32-36 [facility] Comment on above: Performed By: #### C BCA #### [facility] ([facility]) [address] [place] [address] VIR MCV (RBC) [Entitic vol] 104 fL High 80-100 [facility] Comment on above: Performed By: #### C BCA #### [facility] ([facility]) [address] [place] [address] VIR Platelet mean volume (Bld) [Entitic vol] 8.7 fL Normal 7-12 [facility] Comment on above: Performed By: #### C BCA #### [facility] ([facility]) [address] [place] [address] VIR Platelets (Bld) [#/Vol] 289 10*3/uL Normal 150-450 [facility] Comment on above: Performed By: #### C BCA #### [facility] ([facility]) [address] [place] [address] VIR RBC COUNT 3.72 X10E12/L Low 3.8-5.2 [facility] Comment on above: Performed By: #### C BCA #### [facility] ([facility]) [address] [place] [address] VIR WBC (Bld) [#/Vol] 5.3 10*3/uL Normal 4-[address] [facility] Comment on above: Performed By: #### C BCA #### [facility] ([facility]) [address] [place] [address] VIR COMPREHENSIVE METABOLIC PANE Sebastián 10-02-2024 Albumin [Mass/Vol] 3.8 g/dL Normal 3.2-5.3 [facility] Comment on above: Performed By: #### C MP #### [facility] ([facility]) [address] [place] [address] VIR ALP [Catalytic activity/Vol] 100 U/L Normal 39-130 [facility] Comment on above: Performed By: #### C MP #### [facility] ([facility]) [address] [place] [address] VIR ALT [Catalytic activity/Vol] 11 U/L Normal <=31 [facility] Comment on above: Performed By: #### C MP #### [facility] ([facility]) [address] [place] [address] VIR Anion gap [Moles/Vol] 6 mmol/L Normal 5-15 [facility] Comment on above: Performed By: #### C MP #### [facility] ([facility]) [address] [place] [address] VIR AST [Catalytic activity/Vol] 14 U/L Normal <=41 [facility] Comment on above: Performed By: #### C MP #### [facility] ([facility]) [address] [place] [address] VIR Bilirubin [Mass/Vol] 0.3 mg/dL Normal 0.3-1.2 [facility] Comment on above: Performed By: #### C MP #### [facility] ([facility]) [address] [place] [address] VIR Calcium [Mass/Vol] 9.5 mg/dL Normal 8.5-10.5 [facility] Comment on above: Performed By: #### C MP #### [facility] ([facility]) [address] [place] [address] VIR Chloride [Moles/Vol] 108 mmol/L Normal 98-109 [facility] Comment on above: Performed By: #### C MP #### [facility] ([facility]) [address] [place] [address] VIR CO2 [Moles/Vol] 26 mmol/L Normal 22-32 [facility] Comment on above: Performed By: #### C MP #### [facility] ([facility]) [address] [place] [address] VIR Creatinine [Mass/Vol] 0.66 mg/dL Normal 0.40-1.00 [facility] Comment on above: Result Comment: METH OD TRACEABLE TO IDMS STANDARD Performed By: #### C MP #### [facility] ([facility]) [address] [place] [address] VIR EGFR (CKD-EPI) NON-RACE DEPENDENT >^90 Normal >=60 [facility] Comment on above: Result Comment: Repo rted eGFR is based on the CKD-EPI 2020 equation that does not use a race coefficient. Performed By: #### C MP #### [facility] ([facility]) [address] [place] [address] VIR Glucose [Mass/Vol] 120 mg/dL High 65-99 [facility] Comment on above: Performed By: #### C MP #### [facility] ([facility]) [address] [place] [address] VIR Potassium [Moles/Vol] 4.0 mmol/L Normal 3.5-5.0 [facility] Comment on above: Performed By: #### C MP #### [facility] ([facility]) [address] [place] [address] VIR Protein [Mass/Vol] 6.7 g/dL Normal 6.0-8.0 [facility] Comment on above: Performed By: #### C MP #### [facility] ([facility]) [address] [place] [address] VIR Sodium [Moles/Vol] 140 mmol/L Normal 134-146 [facility] Comment on above: Performed By: #### C MP #### [facility] ([facility]) [address] [place] [address] VIR Urea nitrogen [Mass/Vol] 24 mg/dL Normal 5-27 [facility] Comment on above: Performed By: #### C MP #### [facility] ([facility]) [address] [place] [address] VIR CBC WITH AUTO DIFFERENTIALon 04-30-2025 BASOPHILS ABSOLUTE COUNT (10*3/UL) BY AUTOMATED COUNT 0.0 10*3/uL Normal [facility] Comment on above: Result Comment: This is an appended report. These results have been appended to a previously preliminary verified report. Performed By: #### C BCA #### [facility] ([facility]) [address] [place] [address] VIR BASOPHILS RELATIVE PERCENT BY AUTOMATED COUNT 0.2 % Normal [facility] Comment on above: Result Comment: This is an appended report. These results have been appended to a previously preliminary verified report. Performed By: #### C BCA #### [facility] ([facility]) [address] [place] [address] VIR CELLAVISION DIFFERENTIAL TYPE AUTOMATED DIFFERENTIAL Normal [facility] Comment on above: Result Comment: This is an appended report. These results have been appended to a previously preliminary verified report. Performed By: #### C BCA #### [facility] ([facility]) [address] [place] [address] VIR Eosinophils (Bld) [#/Vol] 0.0 10*3/uL Normal [facility] Comment on above: Result Comment: This is an appended report. These results have been appended to a previously preliminary verified report. Performed By: #### C BCA #### [facility] ([facility]) [address] [place] [address] VIR EOSINOPHILS RELATIVE PERCENT BY AUTOMATED COUNT 1.0 % Normal [facility] Comment on above: Result Comment: This is an appended report. These results have been appended to a previously preliminary verified report. Performed By: #### C BCA #### [facility] ([facility]) [address] [place] [address] VIR Erythrocyte distribution width (RBC) [Ratio] 15.1 % High 11.5-15 [facility] Comment on above: Performed By: #### C BCA #### [facility] ([facility]) [address] [place] [address] VIR Hematocrit (Bld) [Volume fraction] 34.4 % Low 35-47 [facility] Comment on above: Performed By: #### C BCA #### [facility] ([facility]) [address] [place] [address] VIR Hemoglobin (Bld) [Mass/Vol] 11.3 g/dL Low 11.7-15.5 [facility] Comment on above: Performed By: #### C BCA #### [facility] ([facility]) [address] [place] [address] VIR LYMPHOCYTES ABSOLUTE COUNT (10*3/UL) BY AUTOMATED COUNT 1.6 10*3/uL Normal [facility] Comment on above: Result Comment: This is an appended report. These results have been appended to a previously preliminary verified report. Performed By: #### C BCA #### [facility] ([facility]) [address] [place] [address] VIR LYMPHOCYTES RELATIVE PERCENT BY AUTOMATED COUNT 45.7 % Normal [facility] Comment on above: Result Comment: This is an appended report. These results have been appended to a previously preliminary verified report. Performed By: #### C BCA #### [facility] ([facility]) [address] [place] [address] VIR MCH (RBC) [Entitic mass] 36.5 pg High 27-34 [facility] Comment on above: Performed By: #### C BCA #### [facility] ([facility]) [address] [place] [address] VIR MCHC (RBC) [Mass/Vol] 33.0 g/dL Normal 32-36 [facility] Comment on above: Performed By: #### C BCA #### [facility] ([facility]) [address] [place] [address] VIR MCV (RBC) [Entitic vol] 111 fL High 80-100 [facility] Comment on above: Performed By: #### C BCA #### [facility] ([facility]) [address] [place] [address] VIR MONOCYTES ABSOLUTE COUNT (10*3/UL) BY AUTOMATED COUNT 0.3 10*3/uL Normal [facility] Comment on above: Result Comment: This is an appended report. These results have been appended to a previously preliminary verified report. Performed By: #### C BCA #### [facility] ([facility]) [address] [place] [address] VIR MONOCYTES RELATIVE PERCENT BY AUTOMATED COUNT 10.2 % Normal [facility] Comment on above: Result Comment: This is an appended report. These results have been appended to a previously preliminary verified report. Performed By: #### C BCA #### [facility] ([facility]) [address] [place] [address] VIR NEUTROPHILS ABSOLUTE COUNT BY AUTOMATED COUNT 1.5 10*3/uL Normal [facility] Comment on above: Result Comment: This is an appended report. These results have been appended to a previously preliminary verified report. Performed By: #### C BCA #### [facility] ([facility]) [address] [place] [address] VIR NEUTROPHILS RELATIVE PERCENT BY AUTOMATED COUNT 42.9 % Normal [facility] Comment on above: Result Comment: This is an appended report. These results have been appended to a previously preliminary verified report. Performed By: #### C BCA #### [facility] ([facility]) [address] [place] [address] VIR Platelet mean volume (Bld) [Entitic vol] 8.6 fL Normal 7-12 [facility] Comment on above: Performed By: #### C BCA #### [facility] ([facility]) [address] [place] [address] VIR Platelets (Bld) [#/Vol] 177 10*3/uL Normal 150-450 [facility] Comment on above: Performed By: #### C BCA #### [facility] ([facility]) [address] [place] [address] VIR RBC COUNT 3.11 X10E12/L Low 3.8-5.2 [facility] Comment on above: Performed By: #### C BCA #### [facility] ([facility]) [address] [place] [address] VIR WBC (Bld) [#/Vol] 3.4 10*3/uL Low 4-11 [facility] Comment on above: Performed By: #### C BCA #### [facility] ([facility]) [address] [place] [address] VIR CBC auto differentialon 06-28 Basophils (Bld) [#/Vol] 0 10*3/uL [facility] Comment on above: This is an appended report. These results have been appended to a previously preliminary verified report. Basophils/100 WBC (Bld) 0.2 % [facility] Comment on above: This is an appended report. These results have been appended to a previously preliminary verified report. Differential cell count method Nom (Bld) AUTOMATED DIFFERENTIAL [facility] Comment on above: This is an appended report. These results have been appended to a previously preliminary verified report. Eosinophils (Bld) [#/Vol] 0 10*3/uL [facility] Comment on above: This is an appended report. These results have been appended to a previously preliminary verified report. Eosinophils/100 WBC (Bld) 1 % [facility] Comment on above: This is an appended report. These results have been appended to a previously preliminary verified report. Erythrocyte distribution width (RBC) [Ratio] 15.1 % High 11.5 - 15 % [facility] Hematocrit (Bld) [Volume fraction] 34.4 % Low 35 - 47 % [facility] Hemoglobin (Bld) [Mass/Vol] 11.3 g/dL Low 11.7 - 15.5 g/dL [facility] Interpretation and review of laboratory results Abnormal [facility] Lymphocytes (Bld) [#/Vol] 1.6 10*3/uL [facility] Comment on above: This is an appended report. These results have been appended to a previously preliminary verified report. Lymphocytes/100 WBC (Bld) 45.7 % [facility] Comment on above: This is an appended report. These results have been appended to a previously preliminary verified report. MCH (RBC) [Entitic mass] 36.5 pg High 27 - 34 pg [facility] MCHC (RBC) [Mass/Vol] 33 g/dL 32 - 36 g/dL [facility] MCV (RBC) [Entitic vol] 111 fL High 80 - 100 fL [facility] Monocytes (Bld) [#/Vol] 0.3 10*3/uL [facility] Comment on above: This is an appended report. These results have been appended to a previously preliminary verified report. Monocytes/100 WBC (Bld) 10.2 % [facility] Comment on above: This is an appended report. These results have been appended to a previously preliminary verified report. Neutrophils (Bld) [#/Vol] 1.5 10*3/uL [facility] Comment on above: This is an appended report. These results have been appended to a previously preliminary verified report. Neutrophils/100 WBC (Bld) 42.9 % [facility] Comment on above: This is an appended report. These results have been appended to a previously preliminary verified report. Platelet mean volume (Bld) [Entitic vol] 8.6 fL 7 - 12 fL [facility] Platelets (Bld) [#/Vol] 177 10*3/uL [facility] RBC (Bld) [#/Vol] 3.11 10*6/uL Low [facility] WBC LM Ql (Sput) 3.4 Low [facility] Urine Cultureon 06-25-2024 Bacteria identified Cx Nom (U) CONFIRMED WITH SANDI AT [facility] THE NAME AND SHE SAID ROXANNA ORGANISM: Escherichia coli (O:ESCCOL) [place] Count >100,000 Aerobic ANAID Charge (NMIC56) SUSCEPTIBILITY ORGANISM: O:ESCCOL ANTIBIOTIC INTERPRETATION ANAID Amikacin S <16 Amoxacillin/K Clavulanate S <8 Ampicillin S <8 Ampicillin/Sulbactam S <4 Aztreonam S <4 Cefazolin S <2 Cefepime S <2 Ceftazidime S <1 Ceftazidime/Avibactam S <4 Ceftolozane/Tazobactam S <2 Ceftriaxone S <1 Cefuroxime S <4 Ciprofloxacin S <0.25 Ertapenem S <0.5 Gentamicin S <2 Levofloxacin S <0.5 Meropenem S <1 Meropenem/Vaborbactam S <2 Nitrofurantoin S <32 Piperacillin/Tazobactam S <8 Tetracycline S <4 Tigecycline S <2 Tobramycin S <2 Trimethoprim/Sulfamethoxazol e S <0.5 S = SUSCEPTIBLE I = INTERMEDIATE R = RESISTANT BLANK = DATA NOT AVAILABLE, OR DRUG NOT ADVISABLE OR TESTED R* = RESISTANCE DUE TO EXTENDED SPECTRUM BETA-LACTAMASES ESBL = EXTENDED SPECTRUM BETA-LACTAMASE TFG = THYMIDINE-DEPENDENT STRAIN JACKELINE = BETA-LACTAMASE POSITIVE IB = INDUCIBLE BETA-LACTAMASE. APPEARS IN PLACE OF 'S' WITH SPECIES KNOWN TO POSSESS INDUCIBLE BETA-LACTAMASES. POTENTIALLY THEY MAY BECOME RESISTANT TO ALL B-LACTAM DRUGS. PERFORMED BY: [place] [address] PATHOLOGIST NUCLEAR DESIGN ENGINEER DORA BOLTON M.D. Normal [facility] Comment on above: Performed By: #### C UU #### [address] CBC AND AUTO DIFFon 05-08-19 25 Erythrocyte distribution width (RBC) [Ratio] 14.8 % Normal 11.5-15.0 [facility] Comment on above: Performed By: #### C IVELISSE GONZALESA #### [facility] ([id number]) [address] [place] [address] Hematocrit (Bld) [Volume fraction] 38.3 % Normal 35-47 [facility] Comment on above: Performed By: #### C IVELISSE GONZALESA #### [facility] ([id number]) [address] [place] [address] Hemoglobin (Bld) [Mass/Vol] 12.7 g/dL Normal 11.7-15.5 [facility] Comment on above: Performed By: #### C MP, CBCA #### [facility] ([id number]) [address] [place] [address] Lymphocytes (Bld) [#/Vol] 1.8 10*3/uL Normal 1.0-3.5 [facility] Comment on above: Performed By: #### C MP, CBCA #### [facility] ([id number]) [address] [place] [address] Lymphocytes/100 WBC (Bld) 54.8 % Normal [facility] Comment on above: Performed By: #### C MP, CBCA #### [facility] ([id number]) [address] [place] [address] MCH (RBC) [Entitic mass] 38.2 pg High 27-34 [facility] Comment on above: Performed By: #### C MP, CBCA #### [facility] ([id number]) [address] [place] [address] MCHC (RBC) [Mass/Vol] 33.2 g/dL Normal 32-36 [facility] Comment on above: Performed By: #### C MP, CBCA #### [facility] ([id number]) [address] [place] [address] MCV (RBC) [Entitic vol] 115 fL High 80-100 [facility] Comment on above: Performed By: #### C MP, CBCA #### [facility] ([id number]) [address] [place] [address] Monocytes (Bld) [#/Vol] 0.1 10*3/uL Normal 0-0.9 [facility] Comment on above: Performed By: #### C MP, CBCA #### [facility] ([id number]) [address] [place] [address] Monocytes/100 WBC (Bld) 1.9 % Normal [facility] Comment on above: Performed By: #### C MP, CBCA #### [facility] ([id number]) [address] [place] [address] Neutrophils (Bld) [#/Vol] 1.4 10*3/uL Low 1.5-6.6 [facility] Comment on above: Performed By: #### C MP, CBCA #### [facility] ([id number]) [address] [place] [address] OVALOCYTE 1+ Abnormal NONE [facility] Comment on above: Performed By: #### C MP, CBCA #### [facility] ([id number]) [address] [place] [address] Platelet mean volume (Bld) [Entitic vol] 8.9 fL Normal 7-12 [facility] Comment on above: Performed By: #### C MP, CBCA #### [facility] ([id number]) [address] [place] [address] Platelets (Bld) [#/Vol] 121 10*3/uL Low 150-450 [facility] Comment on above: Performed By: #### C MP, CBCA #### [facility] ([id number]) [address], [address] [place] [address] POLYCHROMASIA 1+ Abnormal NONE [facility] Comment on above: Performed By: #### C MP, CBCA #### [facility] ([id number]) [address] [place] [address] RBC COUNT 3.32 X10E12/L Low 3.80-5.20 [facility] Comment on above: Performed By: #### C CHRISTIAN CBCA #### [facility] ([id number]) [address] [place] [address] SEG NEUTROPHIL 43.3 % Normal [facility] Comment on above: Performed By: #### C CHRISTIAN, CBCA #### [facility] ([id number]) [address] [place] [address] WBC (Bld) [#/Vol] 3.3 10*3/uL Low 4.0-11.[address] [facility] Comment on above: Performed By: #### C CHRISTIAN CBCA #### [facility] ([id number]) [address] [place] [address] COMPREHENSIVE METABOLIC PANE Sebastián 05-08-2024 Albumin [Mass/Vol] 3.9 g/dL Normal 3.2-5.3 [facility] Comment on above: Performed By: #### C CHRISTIAN CBCA #### [facility] ([id number]) [address] [place] [address] ALP [Catalytic activity/Vol] 90 U/L Normal 39-130 [facility] Comment on above: Performed By: #### C CHRISTIAN, CBCA #### [facility] ([id number]) [address] [place] [address] ALT [Catalytic activity/Vol] 9 U/L Normal 0-31 [facility] Comment on above: Performed By: #### C CHRISTIAN, CBCA #### [facility] ([id number]) [address] [place] [address] Anion gap [Moles/Vol] 5 mmol/L Normal 5-15 [facility] Comment on above: Performed By: #### C MP, CBCA #### [facility] ([id number]) [address] [place] [address] AST [Catalytic activity/Vol] 15 U/L Normal 0-41 [facility] Comment on above: Performed By: #### C CHRISTIAN CBCA #### [facility] ([id number]) [address] [place] [address] Bilirubin [Mass/Vol] 0.3 mg/dL Normal 0.3-1.2 [facility] Comment on above: Performed By: #### C CHRISTIAN CBCA #### [facility] ([id number]) [address] [place] [address] Calcium [Mass/Vol] 9.2 mg/dL Normal 8.5-10.5 [facility] Comment on above: Performed By: #### C CHRISTIAN CBCA #### [facility] ([id number]) [address] [place] [address] Chloride [Moles/Vol] 106 mmol/L Normal 98-109 [facility] Comment on above: Performed By: #### C CHRISTIAN CBCA #### [facility] ([id number]) [address] [place] [address] CO2 [Moles/Vol] 30 mmol/L Normal 22-32 [facility] Comment on above: Performed By: #### C CHRISTIAN CBCA #### [facility] ([id number]) [address] [place] [address] Creatinine [Mass/Vol] 0.64 mg/dL Normal 0.40-1.00 [facility] Comment on above: Result Comment: METH OD TRACEABLE TO IDMS STANDARD Performed By: #### C CHRISTIAN CBCA #### [facility] ([id number]) [address] [place] [address] eGFR (CKD-EPI) NON-RACE DEPENDENT >90 Normal >59 [facility] Comment on above: Result Comment: Reported eGFR is based on the CKD-EPI 2020 equation that does not use a race coefficient. Performed By: #### C EDITH GONZALES #### [facility] ([id number]) [address] [place] [address] Glucose [Mass/Vol] 100 mg/dL High 65-99 [facility] Comment on above: Performed By: #### C CHRISTIAN CBCA #### [facility] ([id number]) [address] [place] [address] Potassium [Moles/Vol] 3.8 mmol/L Normal 3.5-5.0 [facility] Comment on above: Performed By: #### C CHRISTIAN CBCA #### [facility] ([id number]) [address] [place] [address] Protein [Mass/Vol] 6.5 g/dL Normal 6.0-8.0 [facility] Comment on above: Performed By: #### C CHRISTIAN CBCLilian #### [facility] ([id number]) [address] [place] [address] Sodium [Moles/Vol] 141 mmol/L Normal 134-146 [facility] Comment on above: Performed By: #### C CHRISTIAN CBCA #### [facility] ([id number]) [address] [place] [address] Urea nitrogen [Mass/Vol] 20 mg/dL Normal 5-23 [facility] Comment on above: Performed By: #### C CHRISTIAN CBCA #### [facility] ([id number]) [address] [place] [address] Pathology study report docum entOrdered By: Concetta Sarah on 02-10-2024 Pathology study [facility] Other Sebastián 02-03-2024 L -------- -------- Specimen: [id number] Received: 02/06/24 Status: SHAYNE Low Num: [id number] Spec Type: Cytology Subm Dr: Ena Tran CNP Tissues: A FNA SLIDES NOPATH (LT THY NOD) Procedures: Cyto Int and ReMEGHNA/Ivon -------- Age/ Patient Sex Location Account Attending Physician -------- Angelique Melo 58/F LABELL [id number] Ena Tran CNP -------- SPEC NUM: [id number] RECD: 02/06/24 STATUS: SHAYNE LOW NUM: [id number] BEBETO: 02/03/24- SUBM DR: Ena Tran, TREVOR ENTERED: 02/06/[address] [facility] [address]: Karen,Dinesh SPEC TYPE: Cytology DEPT: BIMAL NCYT ENTERED BY: [id number] RECV BY: [id number] ORDERED: Cyto Int and Re, PAPSTN/5 ORDERED: [...] findings are consistent with the Category 2 [place] [facility]: Benign Clinical Information left thyroid mid [...] vial stored at -20 for microscopic examination. ([place]) -------- Specimen: [id number] Received: 02/06/24 Status: GENEKenyon Loaiza Num: [id number] Spec Type: Cytology Subm Dr: Ena Tran, TREVOR Tissues: A FNA SLIDES NOPATH (LT THY NOD) Procedures: Cyto Int and Re, PAPSTN/5 -------- Patient: Angelique Melo [id number] (Continued) -------- Specimen: [id number] Received: 02/06/24 (Continued) Signed (signature on file) Concetta Sarah MD 02/10/241610 -------- Specimen: [id number] Received: 02/06/24 Status: SHAYNE Low Num: [id number] Spec Type: Cytology Subm Dr: Ena Tran CNP Tissues: A FNA SLIDES NOPATH (LT THY NOD) Procedures: Cyto Int and Re, PAPSTN/5 -------- Patient: Angelique Melo [id number] (Continued) -------- Specimen: [id number] Received: 02/06/24 (Continued) Microscopic Description Microscopic examinations are performed supporting the above interpretation CPT Codes 62563 -------- -------- Specimen: [id number] Received: 02/06/24 Status: SHAYNE Low Num: [id number] Spec Type: Cytology Subm Dr: Ena Tran CNP Tissues: A FNA SLIDES NOPATH (LT THY NOD) Procedures: Cyto Int and Re, PAPSTN/5 -------- Patient: Angelique Melo [id number] (Continued) -------- Signed (signature on file) Concetta Sarah MD 02/10/24 1611 Normal [facility] CT CTA ABD AND PELVISon [...] Cheung MD on 12/06/2023 9:45 AM Normal [facility] CT CTA CHESTon 12-06-2023 CT CTA [...] Art Gale on 12/06/2023 2:35 PM Normal [facility] BASIC METABOLIC PANLon 10-11 Anion gap [Moles/Vol] 7 mmol/L Normal 5-15 [facility] Comment on above: Performed By: #### C BCA, BMP #### [facility] ([id number]) [address] [place] [address] Calcium [Mass/Vol] 8.9 mg/dL Normal 8.5-10.5 [facility] Comment on above: Performed By: #### C BCA, BMP #### [facility] ([id number]) [address] [place] [address] Chloride [Moles/Vol] 105 mmol/L Normal 98-109 [facility] Comment on above: Performed By: #### C BCA, BMP #### [facility] ([id number]) [address] [place] [address] CO2 [Moles/Vol] 27 mmol/L Normal 22-32 [facility] Comment on above: Performed By: #### C MINH, BMP #### [facility] ([id number]) [address] [place] [address] Creatinine [Mass/Vol] 0.50 mg/dL Normal 0.40-1.00 [facility] Comment on above: Result Comment: METH OD TRACEABLE TO IDMS STANDARD Performed By: #### C MINH, BMP #### [facility] ([id number]) [address] [place] [address] eGFR (CKD-EPI) NON-RACE DEPENDENT >90 Normal >59 [facility] Comment on above: Result Comment: Reported eGFR is based on the CKD-EPI 2020 equation that does not use a race coefficient. Performed By: #### C MINH, BMP #### [facility] ([id number]) [address] [place] [address] Glucose [Mass/Vol] 99 mg/dL Normal 65-99 [facility] Comment on above: Performed By: #### C MINH, BMP #### [facility] ([id number]) [address] [place] [address] Potassium [Moles/Vol] 3.6 mmol/L Normal 3.5-5.0 [facility] Comment on above: Performed By: #### C MINH, BMP #### [facility] ([id number]) [address] [place] [address] Sodium [Moles/Vol] 139 mmol/L Normal 134-146 [facility] Comment on above: Performed By: #### C BCA, BMP #### [facility] ([id number]) [address] [place] [address] Urea nitrogen [Mass/Vol] 15 mg/dL Normal 5-23 [facility] Comment on above: Performed By: #### C MINH, BMP #### [facility] ([id number]) [address] [place] [address] CBC AND AUTO DIFFon 10-12-19 Erythrocyte distribution width (RBC) [Ratio] 14.3 % Normal 11.5-15.0 [facility] Comment on above: Performed By: #### C MINH, BMP #### [facility] ([id number]) [address] [place] [address] Hematocrit (Bld) [Volume fraction] 27.9 % Low 35-47 [facility] Comment on above: Performed By: #### C MINH, BMP #### [facility] ([id number]) [address] [place] [address] Hemoglobin (Bld) [Mass/Vol] 9.5 g/dL Low 11.7-15.5 [facility] Comment on above: Performed By: #### C MINH, BMP #### [facility] ([id number]) [address] [place] [address] Lymphocytes (Bld) [#/Vol] 2.9 10*3/uL Normal 1.0-3.5 [facility] Comment on above: Performed By: #### C MINH, BMP #### [facility] ([id number]) [address] [place] [address] Lymphocytes/100 WBC (Bld) 42.0 % Normal [facility] Comment on above: Performed By: #### C MINH, BMP #### [facility] ([id number]) [address] [place] [address] MCH (RBC) [Entitic mass] 40.3 pg High 27-34 [facility] Comment on above: Performed By: #### C BCA, BMP #### [facility] ([id number]) [address] [place] [address] MCHC (RBC) [Mass/Vol] 34.1 g/dL Normal 32-36 [facility] Comment on above: Performed By: #### Amanda WILKINSON, BMP #### [facility] ([id number]) [address] [place] [address] MCV (RBC) [Entitic vol] 118 fL High 80-100 [facility] Comment on above: Performed By: #### C MINH, BMP #### [facility] ([id number]) [address] [place] [address] Monocytes (Bld) [#/Vol] 0.3 10*3/uL Normal 0-0.9 [facility] Comment on above: Performed By: #### Amanda WILKINSON, BMP #### [facility] ([id number]) [address] [place] [address] Monocytes/100 WBC (Bld) 4.0 % Normal [facility] Comment on above: Performed By: #### Amanda WILKINSON, BMP #### [facility] ([id number]) [address] [place] [address] Neutrophils (Bld) [#/Vol] 3.8 10*3/uL Normal 1.5-6.6 [facility] Comment on above: Performed By: #### Amanda WILKINSON, BMP #### [facility] ([id number]) [address] [place] [address] OVALOCYTE 1+ Abnormal NONE [facility] Comment on above: Performed By: #### Amanda WILKINSON, BMP #### [facility] ([id number]) [address] [place] [address] Platelet mean volume (Bld) [Entitic vol] 8.4 fL Normal 7-12 [facility] Comment on above: Performed By: #### C BCA, BMP #### [facility] ([id number]) [address] [place] [address] Platelets (Bld) [#/Vol] 200 10*3/uL Normal 150-450 [facility] Comment on above: Performed By: #### C BCA, BMP #### [facility] ([id number]) [address] [place] [address] POLYCHROMASIA 1+ Abnormal NONE [facility] Comment on above: Performed By: #### C BCA, BMP #### [facility] ([id number]) [address] [place] [address] RBC COUNT 2.36 X10E12/L Low 3.80-5.20 [facility] Comment on above: Performed By: #### C BCA, BMP #### [facility] ([id number]) [address], [address] [place] [address] SEG NEUTROPHIL 54.0 % Normal [facility] Comment on above: Performed By: #### C BCA, BMP #### [facility] ([id number]) [address], [address] [place] [address] WBC (Bld) [#/Vol] 7.0 10*3/uL Normal 4.0-11.0 [facility] Comment on above: Performed By: #### C BCA, BMP #### [facility] ([id number]) [address] [place] [address] BASIC METABOLIC PANLon 10-10 Anion gap [Moles/Vol] 9 mmol/L Normal 5-15 [facility] Comment on above: Performed By: #### C BC, BMP #### [facility] ([id number]) [address], [address] [place] [address] Calcium [Mass/Vol] 9.0 mg/dL Normal 8.5-10.5 [facility] Comment on above: Performed By: #### C FLAKITO, BMP #### [facility] ([id number]) [address], [address] [place] [address] Chloride [Moles/Vol] 105 mmol/L Normal 98-109 [facility] Comment on above: Performed By: #### C FLAKITO, BMP #### [facility] ([id number]) [address] [place] [address] CO2 [Moles/Vol] 25 mmol/L Normal 22-32 [facility] Comment on above: Performed By: #### Amanda FRAGA, BMP #### [facility] ([id number]) [address] [place] [address] Creatinine [Mass/Vol] 0.45 mg/dL Normal 0.40-1.00 [facility] Comment on above: Result Comment: METH OD TRACEABLE TO IDMS STANDARD Performed By: #### Amanda FRAGA, BMP #### [facility] ([id number]) [address], [address] [place] [address] eGFR (CKD-EPI) NON-RACE DEPENDENT >90 Normal >59 [facility] Comment on above: Result Comment: Reported eGFR is based on the CKD-EPI 2020 equation that does not use a race coefficient. Performed By: #### C FLAKITO, BMP #### [facility] ([id number]) [address], [address] [place] [address] Glucose [Mass/Vol] 127 mg/dL High 65-99 [facility] Comment on above: Performed By: #### C FLAKITO, BMP #### [facility] ([id number]) [address], [address] [place] [address] Potassium [Moles/Vol] 3.6 mmol/L Normal 3.5-5.0 [facility] Comment on above: Performed By: #### Amanda FRAGA, BMP #### [facility] ([id number]) [address] [place] [address] Sodium [Moles/Vol] 139 mmol/L Normal 134-146 [facility] Comment on above: Performed By: #### C FLAKITO, BMP #### [facility] ([id number]) [address], [address] [place] [address] Urea nitrogen [Mass/Vol] 15 mg/dL Normal 5-23 [facility] Comment on above: Performed By: #### C FLAKITO, BMP #### [facility] ([id number]) [address], [address] [place] [address] COMPLETE BLOOD COUNTon 10-10 Erythrocyte distribution width (RBC) [Ratio] 14.1 % Normal 11.5-15.0 [facility] Comment on above: Performed By: #### C FLAKITO, BMP #### [facility] ([id number]) [address] [place] [address] Hematocrit (Bld) [Volume fraction] 30.6 % Low 35-47 [facility] Comment on above: Performed By: #### C FLAKITO, BMP #### [facility] ([id number]) [address] [place] [address] Hemoglobin (Bld) [Mass/Vol] 10.6 g/dL Low 11.7-15.5 [facility] Comment on above: Performed By: #### C FLAKITO, BMP #### [facility] ([id number]) [address] [place] [address] MCH (RBC) [Entitic mass] 40.5 pg High 27-34 [facility] Comment on above: Performed By: #### C FLAKITO, BMP #### [facility] ([id number]) [address] [place] [address] MCHC (RBC) [Mass/Vol] 34.6 g/dL Normal 32-36 [facility] Comment on above: Performed By: #### C FLAKITO, BMP #### [facility] ([id number]) [address] [address] MCV (RBC) [Entitic vol] 117 fL High 80-100 [facility] Comment on above: Performed By: #### C FLAKITO, BMP #### [facility] ([id number]) [address], [facility] [address] [place] [address] Platelet mean volume (Bld) [Entitic vol] 8.1 fL Normal 7-12 [facility] Comment on above: Performed By: #### C FLAKITO, BMP #### [facility] ([id number]) [address] [address] Platelets (Bld) [#/Vol] 220 10*3/uL Normal 150-450 [facility] Comment on above: Performed By: #### C FLAKITO, BMP #### [facility] ([id number]) [address], [facility] [address] [place] [address] RBC COUNT 2.62 X10E12/L Low 3.80-5.20 [facility] Comment on above: Performed By: #### C FLAKITO, BMP #### [facility] ([id number]) [address], [address] [address] WBC (Bld) [#/Vol] 5.3 10*3/uL Normal 4.0-11.0 [facility] Comment on above: Performed By: #### C FLAKITO, BMP #### [facility] ([id number]) [address], [address] [address] BRAIN WO CONTon CT BRAIN WO [...] Jeffers MD on 10/11/2023 2:29 AM Normal [facility] Glucose Glucometer (BldC) [M ass/Vol]on 10-10-2023 Glucose [Mass/Vol] 133 mg/dL High 65-99 [facility] BLOOD CULTUREon 09-26-2023 Bacteria identified Aer cx Nom (Bld) CULTURE RESULTS NO SPECIMEN RECEIVED IN LABORATORY ACCOUNT CREDITED Normal [facility] Comment on above: Performed By: #### 1 [id number] #### [facility] ([id number]) [address] [place] [address] ECG 12 leadon 09-26-2023 TRACEMASTERVUE [facility] CALCIUMon 08-02-2022 Calcium [Mass/Vol] 9.2 mg/dL Normal 8.5-10.1 [facility] Comment on above: Performed By: #### C MIN Quintana #### [facility] [address] [place], [place] [address] Dr. Carmelina Sarah CREATININEon 08-02-2022 Creatinine [Mass/Vol] 0.88 mg/dL Normal 0.55-1.02 [facility] Comment on above: Performed By: #### C MIN Quintana ####[facility] [address] [place], [place] [address]Jv. Carmelina Sarah EGFR-AF CITIZEN OF [place] >60 Normal >=60 [facility] Comment on above: Performed By: #### C MIN Quintana ####[facility] [address] [place], [place] [address]Mx. Carmelina Sarah EGFR-NON AF CITIZEN OF [place] >60 Normal >=60 [facility] Comment on above: Performed By: #### C Lilian CREA ####[facility] [address] [place], [place] [address]Nr. Carmelina Sarah MG MAMM SCREEN 3D CONCEPCIÓN CADon 03-24-2022 MG MAMM SCREEN 3D CONCEPCIÓN CAD Patient: ANGELIQUE MELO Exam Date: 03/24/2022 : 1965 Gender:F Ordering : DR RAMA PRITCHETT . Admission #: [id number] Family : Order #: [id number] CLICK HERE TO VIEW EXAM RADIOLOGY REPORT PROCEDURE: MAMMOGRAM SCREENING 3D BILATERAL CAD COMPARISON: MG MAMM SCREEN 3D CONCEPCIÓN CAD, 03/11/2021. MG MAMM SCREEN CONCECPIÓN W CAD, 08/14/2018. INDICATIONS: Screening mammography Calculator Name NCI Breast Cancer Risk Assessment Tool 5 Year Breast Cancer Risk 0.90% Lifetime Breast Cancer Risk 5.10% Personal Breast Cancer No Personal Ovarian Cancer No Treatments None Family Cancers Father with hodgkins lymphoma cancer at age 46. LOCATION: [facility] BREAST COMPOSITION: Scattered areas fibroglandular density. [...] Frances Quezada MD on 03/25/2022 at 08:12 Normal [facility] XR DEXA BONE DENSITYon 03-24 XR DEXA BONE DENSITY DEXA Bone Density Study CLINICAL: Evaluate bone mineral density. Postmenopausal COMPARISON: None FINDINGS: The bone density study was assessed by dual-energy x-ray absorptiometry with the [employer] scanner. The test results are expressed [...] FRANCES NICHOLS Date: 2022-03-24 09:[address] [facility] CBC AUTO DIFFon 02-22-2022 BASO # 0.3 103/ul Critically high 0.0-0.1 [facility] Comment on above: Performed By: #### C BC ####[facility] [address] [place], [place] [address]Dr. Carmelina Sarah Basophils/100 WBC (Bld) 3.0 % Critically high 0.2-2.[address] [facility] Comment on above: Performed By: #### C BC ####[facility] [address] [place], [place] [address]Dr. Carmelina Sarah EO # 0.3 103/ul Normal 0.0-0.[address] [facility] Comment on above: Performed By: #### C BC ####[facility] [address] [place], [place] [address]Dr. Carmelina Sarah Eosinophils/100 WBC (Bld) 3.1 % Normal 0.9-7.[address] [facility] Comment on above: Performed By: #### C BC ####[facility] [address] [place], [place] [address]Dr. Carmelina Sarah Erythrocyte distribution width (RBC) [Ratio] 15.8 % Critically high 11.0-15.[address] [facility] Comment on above: Performed By: #### C BC ####[facility] [address] [place], [place] [address]Dr. Carmelina Sarah Hematocrit (Bld) [Volume fraction] 48.5 % Critically high 36.0-48.[address] [facility] Comment on above: Performed By: #### C BC ####[facility] [address] [place], [place] [address]Dr. Carmelina Sarah Hemoglobin (Bld) [Mass/Vol] 15.6 g/dL Normal 12.0-16.[address] [facility] Comment on above: Performed By: #### C BC ####[facility] [address] [place] [id number]. Candemargarita Tyrel IG # 0.05 10e3/ul Critically high 0.00-0.03 [facility] Comment on above: Performed By: #### C BC ####[facility] [address] [place] [id number]. Carmelina Sarah IG % 0.5 % Normal 0.0-0.5 [facility] Comment on above: Performed By: #### C BC ####[facility] [address] [place] [address]Dr. Carmelina Sarah LYMPH # 3.2 103/ul Normal 1.2-3.8 [facility] Comment on above: Performed By: #### C BC ####[facility] [address] [place] [address]Dr. Carmelina Sarah Lymphocytes/100 WBC (Bld) 33.4 % Normal 20.5-60.0 [facility] Comment on above: Performed By: #### C BC ####[facility] [address] [place] [address]Dr. Carmelina Sarah MANUAL DIFF REQ NO Normal [facility] Comment on above: Performed By: #### C BC ####[facility] [address] [place] [phone]. Carmelina Sarah MCH (RBC) [Entitic mass] 28.3 pg Normal 26.7-34.0 [facility] Comment on above: Performed By: #### C BC ####[facility] [address] [place] [address]Dr. Candemargarita Sarah MCHC (RBC) [Mass/Vol] 32.2 g/dL Normal 29.9-35.[address] [facility] Comment on above: Performed By: #### C BC ####[facility] [address] [place] [phone]. Carmelina Sarah MCV (RBC) [Entitic vol] 88.0 fL Normal 81.0-99.0 [facility] Comment on above: Performed By: #### C BC ####[facility] [address] [place] [address]Dr. Carmelina Sarah MONO # 0.7 103/ul Normal 0.3-0.[address] [facility] Comment on above: Performed By: #### C BC ####[facility] [address] [place] [address]Dr. Carmelina Sarah Monocytes/100 WBC (Bld) 7.7 % Normal 1.7-12.0 [facility] Comment on above: Performed By: #### C BC ####[facility] [address] [place] [address]Dr. Carmelina Sarah NEUT # 5.0 103/ul Normal 1.4-6.[address] [facility] Comment on above: Performed By: #### C BC ####[facility] [address] [place] [address]Dr. Carmelina Sarah Neutrophils/100 WBC (Bld) 52.3 % Normal 43.0-75.[address] [facility] Comment on above: Performed By: #### C BC ####[facility] [address] [place] [phone]. Carmelina Sarah Platelet mean volume (Bld) [Entitic vol] 10.8 fL Normal 9.5-13.[address] [facility] Comment on above: Performed By: #### C BC ####[facility] [address] [place] [phone]. Carmelina Sarah PLT 765 103/ul Critically high 150-450 [facility] Comment on above: Performed By: #### C BC ####[facility] [address] [place] [address]Dr. Carmelina Sarah RBC 5.51 106/ul Critically high 4.20-5.40 [facility] Comment on above: Performed By: #### C BC ####[facility] [address] [place] [phone]. Carmelina Sarah WBC 9.6 103/ul Normal 4.0-11.[address] [facility] Comment on above: Performed By: #### C BC ####[facility] [address] [place], [place] [address]WiDr. Carmelina Sarah FREE T3on 02-22-2022 FREE T3 3.14 pg/mlL Normal 2.18-3.98 [facility] Comment on above: Performed By: #### F T3, TSH, T4, LIPID, CMP #### [facility] [address] [place] [address] [address] Carmelina Sarah GLYCOHEMOGLOBIN A1Con 2021 ADA RECOMMENDATION SEE BELOW Normal [facility] Comment on above: Result Comment: ADA RECOMMENDED LIMIT 4.0 - 6.0 ADA THERAPEUTIC TARGET < 7.0 ACTION SUGGESTED > 7.0 Performed By: #### A 1C #### [facility] [address] [place] [address] Dr. Carmelina Sarah Glucose [Mass/Vol] 108 mg/dL Normal [facility] Comment on above: Performed By: #### A 1C #### [facility] [address] [place] [address] Dr. Carmelina Sarah HbA1c (Bld) [Mass fraction] 5.4 % Normal 4.5-6.2 [facility] Comment on above: Performed By: #### A 1C #### [facility] [address] [place] [address] Dr. Carmelina Sarah LIPID PROFILEon 02-22-2022 CHOL-HDL RATIO NORM SEE BELOW Normal [facility] Comment on above: Result Comment: 3.3 - 4.4 LOW RISK 4.4 - 7.1 AVERAGE RISK 7.1 - 11.0 MODERATE RISK >11.0 HIGH RISK Performed By: #### F T3, TSH, T4, LIPID, CMP #### [facility] [address] [place] [address] [address] Carmelina Sarah Cholesterol [Mass/Vol] 158 mg/dL Normal <=[address] [facility] Comment on above: Performed By: #### F T3, TSH, T4, LIPID, CMP #### [facility] [address] [place] [address] [address] Carmelina Sarah Cholesterol in HDL [Mass/Vol] 62 mg/dL Critically high 40-60 [facility] Comment on above: Performed By: #### F T3, TSH, T4, LIPID, CMP #### [facility] [address] [place] [address] [address] Carmelina Sarah Cholesterol in LDL [Mass/Vol] 81.2 mg/dL Normal [facility] Comment on above: Performed By: #### F T3, TSH, T4, LIPID, CMP #### [facility] [address] [place] [address] [address] Carmelina Sarah Cholesterol.total /Cholesterol in HDL [Mass ratio] 2.5 {ratio} Normal [facility] Comment on above: Performed By: #### F T3, TSH, T4, LIPID, CMP #### [facility] [address] [place] [address] [address] Carmelina Sarah HDL NORMAL > or = 60 mg/dl - LO W CARDIOVASCULAR RISK <40 mg/dl - HIGH CARDIOVASCULAR RISK Normal [facility] Comment on above: Performed By: #### F T3, TSH, T4, LIPID, CMP #### [facility] [address] [place] [address] [address] Carmelina Sarah LDL CALC NORMAL SEE BELOW Normal [facility] Comment on above: Result Comment: <100 mg/dl OPTIMAL 100 - 129 mg/dl NEAR OR ABOVE OPTIMAL 130 - 159 mg/dl BORDERLINE HIGH 160 - 189 mg/dl HIGH >190 mg/dl VERY HIGH Performed By: #### F T3, TSH, T4, LIPID, CMP #### [facility] [address] [place] [address] [address] Carmelina Sarah Triglyceride [Mass/Vol] 74 mg/dL Normal <=[address] [facility] Comment on above: Performed By: #### F T3, TSH, T4, LIPID, CMP #### [facility] [address] [place] [address] [address] Carmelina Sarah VLDL CALC 14.8 mg/dL Normal [facility] Comment on above: Performed By: #### F T3, TSH, T4, LIPID, CMP #### [facility] [address] [place] [address] [address] Carmelina Sarah PROF 14(COMP METB)on 022 Albumin [Mass/Vol] 3.8 g/dL Normal 3.4-5.0 [facility] Comment on above: Performed By: #### F T3, TSH, T4, LIPID, CMP #### [facility] [address] [place] [address] Dr. Carmelina Sarah Albumin/Globulin [Mass ratio] 1.0 {ratio} Normal [facility] Comment on above: Performed By: #### F T3, TSH, T4, LIPID, CMP #### [facility] [address] [place] [address] Dr. Carmelina Sarah ALP [Catalytic activity/Vol] 102 U/L Normal 46-[address] [facility] Comment on above: Performed By: #### F T3, TSH, T4, LIPID, CMP #### [facility] [address] [place] [address] Dr. Carmelina Sarah ALT [Catalytic activity/Vol] 22 U/L Normal 14-59 [facility] Comment on above: Performed By: #### F T3, TSH, T4, LIPID, CMP #### [facility] [address] [place] [address] Dr. Carmelina Sarah Anion gap [Moles/Vol] 11.1 mmol/L Normal [facility] Comment on above: Performed By: #### F T3, TSH, T4, LIPID, CMP #### [facility] [address] [place] [address] Dr. Carmelina Sarah AST [Catalytic activity/Vol] 21 U/L Normal 15-37 [facility] Comment on above: Performed By: #### F T3, TSH, T4, LIPID, CMP #### [facility] [address] [place] [address] Dr. Carmelina Sarah Bilirubin [Mass/Vol] 0.5 mg/dL Normal 0.2-1.0 [facility] Comment on above: Performed By: #### F T3, TSH, T4, LIPID, CMP #### [facility] [address] [place] [address] Dr. Carmelina Saarh Calcium [Mass/Vol] 9.2 mg/dL Normal 8.5-10.[address] [facility] Comment on above: Performed By: #### F T3, TSH, T4, LIPID, CMP #### [facility] [address] [place] [address] Dr. Carmelina Sarah Chloride [Moles/Vol] 104 mmol/L Normal 98-[address] [facility] Comment on above: Performed By: #### F T3, TSH, T4, LIPID, CMP #### [facility] [address] [place] [address] Dr. Carmelina Sarah CO2 [Moles/Vol] 27.6 mmol/L Normal 21.0-32.0 [facility] Comment on above: Performed By: #### F T3, TSH, T4, LIPID, CMP #### [facility] [address] [place] [address] Dr. Carmelina Sarah Creatinine [Mass/Vol] 0.93 mg/dL Normal 0.55-1.02 [facility] Comment on above: Performed By: #### F T3, TSH, T4, LIPID, CMP #### [facility] [address] [place] [address] Dr. Carmelina Sarah EGFR-AF CITIZ[place] >60 Normal >=60 [facility] Comment on above: Performed By: #### F T3, TSH, T4, LIPID, CMP #### [facility] [address] [place] [address] Dr. Carmelina Sarah EGFR-NON AF CITIZEN OF [place] >60 Normal >=60 [facility] Comment on above: Performed By: #### F T3, TSH, T4, LIPID, CMP #### [facility] [address] [place] [address] Dr. Carmelina Sarah Globulin (S) [Mass/Vol] 3.7 g/dL Normal [facility] Comment on above: Performed By: #### F T3, TSH, T4, LIPID, CMP #### [facility] [address] [place] [address] Dr. Carmelina Sarah Glucose [Mass/Vol] 90 mg/dL Normal 74-106 [facility] Comment on above: Performed By: #### F T3, TSH, T4, LIPID, CMP #### [facility] [address] [place] [address] Dr. Carmelina Sarah Potassium [Moles/Vol] 3.7 mmol/L Normal 3.5-5.[address] [facility] Comment on above: Performed By: #### F T3, TSH, T4, LIPID, CMP #### [facility] [address] [place] [address] Dr. Carmelina Sarah Protein [Mass/Vol] 7.5 g/dL Normal 6.4-8.[address] [facility] Comment on above: Performed By: #### F T3, TSH, T4, LIPID, CMP #### [facility] [address] [place] [address] Dr. Carmelina Sarah Sodium [Moles/Vol] 139 mmol/L Normal 136-[address] [facility] Comment on above: Performed By: #### F T3, TSH, T4, LIPID, CMP #### [facility] [address] [place] [address] Dr. Carmelina Sarah Urea nitrogen [Mass/Vol] 19.0 mg/dL Critically high 7.0-18.0 [facility] Comment on above: Performed By: #### F T3, TSH, T4, LIPID, CMP #### [facility] [address] [place] [address] Dr. Carmelina Sarah Urea nitrogen/Creatini ne [Mass ratio] 20.4 mg/mg Normal [facility] Comment on above: Performed By: #### F T3, TSH, T4, LIPID, CMP #### [facility] [address] [place] [address] Dr. Carmelina Sarah T4on 02-22-2022 T4 [Mass/Vol] 8.10 ug/dL Normal 4.80-13.90 [facility] [place] Comment on above: Performed By: #### F T3, TSH, T4, LIPID, CMP #### [facility] [address] [place] [address] Dr. Carmelina Sarah TSHon 02-22-2022 TSH 0.985 uIU/mL Normal 0.358-3.74 0 [facility] Comment on above: Performed By: #### F T3, TSH, T4, LIPID, CMP #### [facility] [address] [place] [id number] Dr[address] Carmelina Sarah VITAMIN D 25 OHon 02-22-2022 VIT D 25-OH 51.9 ng/mL Normal [facility] Comment on above: Performed By: #### V ITAD #### [facility] [address] [address] [address] Carmelina Sarah VIT D RANGES SEE BELOW Normal [facility] Comment on above: Result Comment: <20 ng/mL Vit D deficient 20 - <30 ng/mL Vit D insufficient 30 - 100 ng/mL Vit D sufficient >100 ng/mL Potential Toxicity Performed By: #### V ITAD #### [facility] [address] [address] [address] Carmelina Sarah COVID Quick Testingon 2020 Result Negative Cursogram Other COVID-19 Positive/Negativeon 06-09-2020 COVID-19 Positive/Negative Negative Negative [facility] Comment on above: Reference: NegativeT esting for SARS-CoV-2 by RT-PCRThis test was developed and its performance characteristics determined by [employer] and validated at the [facility]. This test has not been [...] Otheron 06-09-2020 Coronavirus 2019 PCR Interp N/A [facility] Automated basophil %on 06-06 Basophils/100 WBC (Bld) 2.9 % [facility] Automated basophil counton 0 06-06-2020 Basophils (Bld) [...] 06-06-2020 RBC (Bld) [#/Vol] 5.10 10*6/uL 3.60-5.00 [facility] Blood hemoglobin measurement (mass/volume)on 06-06-2020 Hemoglobin (Bld) [Mass/Vol] 14.7 g/dL 11.8-15.4 [facility] Blood leukocytes automated c ount (number/volume)on 06-06-2020 WBC (Bld) [#/Vol] 9.0 10*3/uL 4.5-11.0 [facility] Blood neutrophil count by au tomated method (number/volume)on 06-06-2020 Neutrophils (Bld) [#/Vol] 4.9 10*3/uL 1.8-7.7 [facility] Body fluid albumin measureme nt (mass/volume)on 06-06-2020 Albumin (Body fld) [Mass/Vol] 4.0 g/dL 3.2-5.5 [facility] Estimated glomerular filtrat ion rate [...] Plasmaon 06-06-2020 Protein [Mass/Vol] 6.5 g/dL 6.1-7.9 [facility] Serum globulin measurement b y [...] (mass/volume)on 06-06-2020 Calcium [Mass/Vol] 9.7 mg/dL 8.2-10.2 [facility] Serum or plasma chloride joi surement (moles/volume)on 06-06-2020 Chloride [Moles/Vol] 101 mmol/L 95-114 [facility] Serum or plasma creatinine m easurement with calculation of estimated glomerular filtron 06-06-2020 Creatinine [Mass/Vol] 0.97 mg/dL 0.44-1.03 [facility] Serum or plasma glucose sammi urement (mass/volume)on 06-06-2020 Glucose [Mass/Vol] 80 mg/dL 70-100 [facility] Comment on above: ADA recommended [...] (moles/volume)on 06-06-2020 Sodium [Moles/Vol] 136 mmol/L 136-146 [facility] Serum or plasma total biliru bin measurement (mass/volume)on 06-06-2020 Bilirubin [Mass/Vol] 0.7 mg/dL 0.3-1.2 [facility] Serum or plasma total carbon dioxide measurement (moles/volume)on 06-06-2020 CO2 [Moles/Vol] 25.1 mmol/L 22.0-30.0 [facility] Serum or plasma urea nitroge n measurement (mass/volume)on 06-06-2020 Urea nitrogen [Mass/Vol] 15 mg/dL 9-23 [facility] MRI KNEE RIGHT WO CONTRASTon [...] by: Rogerio Mathis 05/09/20 Final result Normal [facility] tear of the posterior horn of the medial meniscus. Horizontal tear of the posterior horn and body of the lateral meniscus. [employer] Phone: EXAMINATION: MRI OF THE RIGHT KNEE [...] fracture, dislocation or avascular necrosis is seen. [employer] Phone: [place], [employer] Incoming R adiant Results From [facility] - 05/09/2020 9:03 PM EST EXAMINATION: MRI [...] horn and body of the lateral meniscus. [employer] Work Phone: Coding Summary.on 03-29-2018 Coding Summary. CODING DATE: 019 FINAL [facility] STATUS: Home (Routine DC) PAYOR: [facility] [place] APC DESCRIPTION 5312 Level 2 Lower GI Procedures ADMIT DX: REASON FOR VISIT DX: R19.5 Other fecal abnormalities FINAL DX: PRINCIPAL: D12.5 Benign neoplasm of sigmoid colon SECONDARY: E78.00 Pure hypercholesterolemia, unspecified F32.9 Major depressive disorder, single episode, unspecified F17.200 Nicotine dependence, unspecified, uncomplicated PYMT PROC APC STAT DESCRIPTION DOCTOR NAME DATE 32866 5312 T Colonoscopy, flexible; Malik GUILLEN MD 03/20/2018 with removal of tumor(s), polyp(s), or other lesion(s) by snare technique 37401 Anesthesia for lower Ben Deal JR, DO [...] Revised Date Saved: 03/29/2018 03:45 pm Normal [facility] Main OR Intraoperative Recor don 03-22-2018 Main OR Intraoperative Record IntraOp Document Type FT Summary Primary Physician: Malik GUILLEN MD Finalized Date/Time: 03/22/18 14:43:28 Pt. Name: ANGELIQUE MELO D.O.B./Sex: 1965 Female Med Rec #: [id number] Physician: Malik GUILLEN MD Financial #: [id number] Pt. Type: O Room/Bed: / Admit/Disch: 03/20/18 [...] Zelda Role Performed Anesthesiologist Surgeon - Primary Geriatric Assistant - Primary Radio Journalist Time In 03/20/18 09:05:00 03/20/18 09:05:00 03/20/18 09:05:00 Time Out 03/20/18 09:29:00 03/20/18 09:29:00 03/20/18 09:29:00 Procedure COLONOSCOPY(.) COLONOSCOPY(.) COLONOSCOPY(.) Comments supervising Last Modified By: Michele RN, Zelda Bautista RN, Zelda Bautista RN, Zelda 03/20/18 09:29:46 03/20/18 09:29:46 03/20/18 09:29:46 Entry 4 Entry 5 Case Attendee Samara Blanco Kelsi Building Maintenance Mechanic, Winnie Patel Role Performed Scrub - Other Scrub - Primary Time In 03/20/18 09:11:00 03/20/18 09:05:00 Time Out 03/20/18 09:29:00 03/20/18 09:29:00 Procedure COLONOSCOPY(.) COLONOSCOPY(.) Comments help in room Last Modified By: Zelda Bautista RN, RN, Angela 03/20/18 09:29:46 03/20/18 09:29:46 Perioperative Protocols FT [...] Given Participants Malik GUILLEN MD, Workman RN, Angela, Abernathy Building Maintenance MechanicWinnie Time Out Complete 03/20/18 09:07:00 Outcomes Met? [...] and tissue Entry 1 Skin Integrity Intact, [place]ona, Warm, and Skin Abnormality No Dry Outcomes [...] RN Patient Status Stable Skin. Condition Intact, Letona, Warm, and Dry Airway Maintenance Oxygen in Use? No Airway Device N/A Outcomes Met? 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 Yes Verified Last Modified By: Zelda Bautista RN 03/20/18 06:49:20 Post-Care Text: The patient received appropriate medication(s) safely administered during the perioperative period For [facility] please see scanned medication reconcilliation form [...] 09:30 Lisseth Sellers CST 03/22/18 14:43 Normal [facility] Inpatient Patient Summaryon 03-20-2018 [facility] Inst[facility] INFORMATION Name: ANGELIQUE MELO PHYSICIANS Admitting Physician: Malik GUILLEN MD Physician: Malik GUILLEN MD PCP: Cruzito Pritchett MD Diagnosis: Colon polyp Comment: PATIENT EDUCATION INFORMATIONInstructions:Armstrong noscopy, Care After Surgery Salam (CUSTOM); Colon PolypsMedication Leaflets:Follow up:With: Address: When: Malik W[address] [place] [address] Business (1) Within 5 to 7 days Comments: Call for any problems. Call for followup appointment MEDICATION LISTComment: Normal [facility] Main OR PACU I Recordon 02-26 Main OR PACU I Record PACU Phase I Document Type FT Summary Primary Physician: Malik GUILLEN MD Finalized Date/Time: 03/20/18 10:19:08 Pt. Name: MELOANGELIQUE/Sex: 1965 Female Med Rec #: [id number] Physician: Malik GUILLEN MD Financial #: [id number] Pt. Type: O Room/Bed: / Admit/Disch: 03/20/18 [...] By: Katerin Joe RN 03/20/18 10:19 Normal [facility] Main OR Preoperative Recordo n 03-20-2018 Main OR Preoperative Record Holding Area Document Type FT Summary Primary Physician: Malik GUILLEN MD Finalized Date/Time: 03/20/18 08:17:50 Pt. Name: LORIE ANGELIQUEKALEB Gibbs/Sex: 1965 Female Med Rec #: [id number] Physician: Malik GUILLEN MD Financial #: [id number] Pt. Type: O Room/Bed: / Admit/Disch: 03/20/18 [...] By: Zelda Bautista RN 03/20/18 08:17 Normal [facility] Operative Reporton --201 8 Operative Report [...] [facility] the [facility] well [facility].Malik Guillen M.D.lkrDictated: 03/20/2018 #[id number]: 03/20/2018 #[id number]: Linda Puga M.D. [facility] Comment on above: Result Comment: Elec tronically Signed By: WILMER HAWKINS, Malik Owen.br\Date and Time Signed: 03/20/18 10:23 EST Patient [...] 06/05/2012 Document Reviewed: 05/23/2012ExitCare? Patient Information ?2014 [employer],. This information is not intended to replace advice given to you by your health care provider. Make sure you discuss any questions you have with your health care provider. Normal [facility] Progress Note-Physicianon Protein mass conc Patient: [...] All ProblemsResolved: Polyp colon / SNOMED CT [id number] Physical Examination Intake and Output Denies significant n/v and is tolerating p.o. Vital Signs (last 24 hrs) Last Charted SBP 124 mmHg (MAR 20 09:55)DBP 78 mmHg (MAR 20 09:55)SpO2 99 % (MAR 20:55)Height 177.8 cm (MAR 20:08)Weight 105.2 kg (MAR 20:)BMI 33.28 kg/m2 (MAR 20:) Pain assessment: Pain Assessment 03/20/2018 09:55 EST Pain Symptoms Self Report No, able to self report Patient Preferred Pain Tool Numeric rating Numeric Pain Scale 0 = No pain . Respiratory: Adequate air exchange with jainism of preoperative function.. Cardiovascular: Cardiovascular function is stable and has returned to preoperative levels.. Neurologic: Pt has returned to preoperative baseline.. Review / Management Condition: Stable. Assessment Anesthetic outcome No anesthetic complications noted. Plan Transfer/ Discharge: Patient can be discharged from PACU when criteria met. Condition good. Normal [facility] Comment on above: Result Comment: Elec [...] Results review: No qualifying data available. Plan [employer] of Anesthesiologists (ASA) physical status classification: Class II. Anesthetic Preoperative Plan Anesthesia: Monitored anesthesia care and general anesthesia if required.. Anesthetic plan, risks, benefits, and alternatives discussed with the patient and/or family. Pt. and/or family present and agree to proceed as planned.. Discussed the importance of abstaining from tobacco products, and offered counseling if desired.. Normal [facility] Comment on above: Result Comment: Elec tronically Signed By: Ben Deal JR, DO.sydni\Date and Time Signed: 03/20/18 08:25 EST Vital Signs Date Time Vital Sign Value Performing Clinician Facility 07-25-2024 13:50-0400 Body temperature 97.11 [degF] [facility] 07-25-2024 13:50-0400 Diastolic blood pressure 68 mm[Hg] Eligio Mendez MD Work Phone: [facility] 07-25-2024 13:50-0400 Heart rate 77 /min Eligio Mendez MD Work Phone: [facility] 07-25-2024 13:50-0400 Respiratory rate 16 /min Eligio Mendez MD Work Phone: [facility] 07-25-2024 13:50-0400 SaO2% (BldA) [Mass fraction] 95 % Eligio Mendez MD Work Phone: [facility] 07-25-2024 13:50-0400 Systolic blood pressure 109 mm[Hg] Eligio Mendez MD Work Phone: [facility] 12-12-2023 10:06-0400 Body mass index (BMI) [Ratio] 37.88 kg/m2 Rhoda Urrutia DO [facility] 12-12-2023 10:06-0400 Body weight 119.75 kg Rhoda Urrutia DO Work Phone: [facility] Comment on above: weighed in wheelchair 12-12-2023 10:06-0400 Diastolic blood pressure 73 mm[Hg] Rhoda Urrutia DO [facility] 12-12-2023 10:06-0400 Heart rate 83 /min [facility]ut[facility] 12-12-2023 10:06-0400 Systolic blood pressure 103 mm[Hg] Rhoda Urrutia DO Work Phone: [facility] 11-22-2023 14:07-0400 Body height 177.8 cm Gigi MENDEZ [facility] 11-22-2023 14:07-0400 Body mass index (BMI) [Ratio] 26.26 kg/m2 Gigi Suarez WATER POLLUTION CONTROL TECHNICIAN-FORESTRY CONSULTANT Work Phone: [facility] 11-22-2023 14:07-0400 Body weight 83.01 kg Gigi Suarez WATER POLLUTION CONTROL TECHNICIAN-FORESTRY CONSULTANT Work Phone: [facility] 11-14-2023 09:32-0400 Diastolic blood pressure 74 mm[Hg] Rhoda Urrutia DO Work Phone: [facility] 11-14-2023 09:32-0400 Heart rate 78 /min Rhoda Urrutia DO Work Phone: [facility] 11-14-2023 09:32-0400 Systolic blood pressure 98 mm[Hg] Rhoda Urrutia DO Work Phone: [facility] 11-02-2023 14:15-0400 Body height 177.8 cm Eligio Mendez MD Work Phone: [facility] 11-02-2023 14:15-0400 Body temperature 97.81 [degF] Eligio Mendez MD Work Phone: [facility] 11-02-2023 14:15-0400 Diastolic blood pressure 69 mm[Hg] Eligio Mendez MD Work Phone: [facility] 11-02-2023 14:15-0400 Heart rate 78 /min Eligio Mendez MD Work Phone: [facility] 11-02-2023 14:15-0400 Systolic blood pressure 101 mm[Hg] Eligio Mendez MD Work Phone: [facility] 09-26-2023 15:38-0400 Body height 177.8 cm [facility] 09-26-2023 15:38-0400 Body mass index (BMI) [Ratio] 26.54 kg/m2 [facility] 09-26-2023 15:38-0400 Body temperature 98.29 [degF] [facility] 09-26-2023 15:38-0400 Body weight 83.92 kg [facility] 09-26-2023 15:38-0400 Diastolic blood pressure 72 mm[Hg] [facility] 09-26-2023 15:38-0400 Heart rate 91 /min [facility] 09-26-2023 15:38-0400 Respiratory rate 18 /min [facility] 09-26-2023 15:38-0400 SaO2% (BldA) [Mass fraction] 97 % [facility] 09-26-2023 15:38-0400 Systolic blood pressure 103 mm[Hg] [facility] 08-25-2023 10:57-0400 Body mass index (BMI) [Ratio] 27.12 kg/m2 Jose Wright MD Work Phone: [facility] 08-25-2023 10:57-0400 Body weight 85.73 kg Jose Wright MD Work Phone: [facility] 08-25-2023 10:57-0400 Diastolic blood pressure 77 mm[Hg] Jose Wright MD Work Phone: [facility] 08-25-2023 10:57-0400 Heart rate 74 /min Jose Wright MD Work Phone: [facility] 08-25-2023 10:57-0400 Systolic blood pressure 98 mm[Hg] Jose Wright MD Work Phone: [facility] 07-07-2023 10:51-0400 Body height 177.8 cm Albino Burton MD Work Phone: [facility] 07-07-2023 10:51-0400 Body mass index (BMI) [Ratio] 27.12 kg/m2 Albino Burton MD Work Phone: [facility] 07-07-2023 10:51-0400 Body weight 85.73 kg Albino Burton MD Work Phone: [facility] 07-07-2023 10:51-0400 Diastolic blood pressure 66 mm[Hg] Albino Burton MD Work Phone: [employer] 07-07-2023 10:51-0400 Heart rate 75 /min Albino Burton MD Work Phone: [employer] [facility] 07-07-2023 10:51-0400 Systolic blood pressure 91 mm[Hg] Albino Burton MD Work Phone: [employer] 12-29-2020 10:15-0400 Body height 177.8 cm Chhaya Spivey Other [facility] Other 12-29-2020 10:15-0400 Body mass index (BMI) [Ratio] 31.56 kg/m2 Chhaya Spivey Other [facility] Other 12-29-2020 10:15-0400 Body temperature 98.2 [degF] Chhaya Spivey Other [facility] Other 12-29-2020 10:15-0400 Body weight 99.79 kg Chhaya Spivey Other [facility] Other 12-29-2020 10:15-0400 SaO2% (BldA) [Mass fraction] 97 % Chhaya Spivey Other [facility] Other Encounters Encounter Date Encounter Type Care Provider Facility Start: 10-16-2024 End: 10-16-2024 Refill Eligio Mendez MD Work Phone: [facility] Comment on above: Essential thrombocyt osis (CMS-HCC); JAK2 V617F mutation Start: 10-02-2024 ambulatory ELIGIO MENDEZ [facility] Start: 07-25-2024 End: 07-25-2024 Office outpatient visit 25 minutes Eligio Mendez MD Work Phone: [facility] Comment on above: Essential thrombocyt osis (CMS-HCC) (Primary Dx); JAK2 V617F mutation Start: 07-25-2024 End: 07-25-2024 ambulatory ELIGIO MENDEZ [facility] Start: 06-25-2024 End: 06-25-2024 ambulatory Rama Pritchett [facility] Work Phone: Start: 06-25-2024 End: 06-25-2024 Departed Referred Rama Pritchett MD Work Phone: [facility] Start: 06-08-2024 End: 06-08-2024 Telephone encounter Eligio Mendez MD Work Phone: [facility] Start: 05-09-2024 End: 05-09-2024 Telephone encounter Marcos Mireles Lilian [facility] Start: 05-08-2024 End: 05-08-2024 ambulatory ELIGIO MENDEZ [facility] Start: 05-04-2024 End: 05-04-2024 Telephone encounter Eligio Mendez MD Work Phone: [facility] Start: 02-03-2024 End: 02-03-2024 ambulatory Ena Tran [facility] Work Phone: Start: 02-03-2024 End: 02-03-2024 Departed Referred Ena Tran REGULATED PROGRAM MANAGER-C Work Phone: [facility] Start: 12-12-2023 End: 12-12-2023 Office outpatient visit 25 minutes Rhoda Urrutia DO Work Phone: [facility] Comment on above: Bilateral carotid ar cindy stenosis (Primary Dx); 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CMS-HCC); Aneurysm of ascending aorta without rupture (CMS-HCC); Multinodular thyroid; Kidney lesion, [place], left; Adrenal nodule (CMS-HCC) Start: 12-12-2023 End: 12-12-2023 ambulatory RHODA URRUTIA [facility] Start: 12-09-2023 End: 12-09-2023 ambulatory [facility] Start: 12-02-2023 End: 12-02-2023 ambulatory [facility] Start: 11-24-2023 End: 11-30-2023 Telephone encounter Mayra Ragland RN [facility] Start: 11-22-2023 End: 11-22-2023 Postop follow up visit related to original px Gigi Suarez WATER POLLUTION CONTROL TECHNICIAN-FORESTRY CONSULTANT [facility] Comment on above: Status post cranioto my (Primary Dx) Start: 11-22-2023 End: 11-22-2023 ambulatory [facility] Start: 11-14-2023 End: 11-14-2023 Office outpatient visit 15 minutes Rhoda Urrutia Work Phone: [facility] [place] Comment on above: Bilateral carotid ar cindy stenosis (Primary Dx); 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CMS-HCC); Claudication (CMS-HCC) Start: 11-14-2023 End: 11-14-[address] [facility] Start: 11-02-2023 End: 11-02-2023 Office outpatient visit 25 minutes Eligio Mendez MD Work Phone: [facility] Comment on above: Essential thrombocyt osis (CMS-HCC) (Primary Dx); JAK2 V617F mutation; 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CMS-HCC) Start: 11-02-2023 End: 11-02-2023 ambulatory ELIGIO MENDEZ [facility] Start: 10-26-2023 End: 10-26-2023 Orders Only Eligio Mendez MD Work Phone: [facility] Start: 10-25-2023 End: 10-25-2023 Postop follow up visit related to original px [facility] Nurse [facility] Comment on above: Skull defect (Primar y Dx) Start: 10-25-2023 ambulatory [facility] Start: 10-13-2023 End: 10-13-2023 Evaluation and management of inpatient [facility] Start: 10-10-2023 End: 10-12-2023 Evaluation and management of inpatient ALBINO BURTON [facility] Start: 10-05-2023 End: 10-05-2023 Telephone encounter Madiha Arevalo RN [facility] Comment on above: antibiotic Start: 09-26-2023 End: 09-26-2023 Patient encounter status [facility] Start: 09-26-2023 Encounter for other preprocedural examination [facility] Start: 09-26-2023 End: 09-26-2023 Orders Only Elizabeth Deng LPN [facility] Comment on above: Aortic thrombus (CMS -HCC) (Primary Dx) Cerebrovascular acci dent (CVA), unspecified mechanism (CMS-HCC) (Primary Dx); Skull defect; Pre-op testing Start: 08-29-2023 End: 08-29-2023 Telephone encounter Eligio Mendez MD Work Phone: [facility] Start: 08-25-2023 End: 08-25-2023 Office outpatient visit 25 minutes Jose Wright MD Work Phone: [facility] Comment on above: 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 (Primary Dx); JAK2 positive polycythemia vera (CMS-HCC); Aortic thrombus (CMS-HCC) Start: 08-25-2023 End: 08-25-2023 ambulatory [facility] Start: 07-25-2023 End: 07-25-2023 Telephone encounter Lilliam Huynh MA [facility] Comment on above: status of pre-op lab s, EKG, Chest Xray Start: 07-14-2023 End: 07-15-2023 Telephone encounter Ruby Gonzales [facility] Comment on above: Heparin Start: 07-07-2023 End: 07-07-2023 Office outpatient visit 25 minutes Albino Burton MD Work Phone: [facility] Comment on above: Cerebrovascular acci dent (CVA), unspecified mechanism (CMS- HCC) (Primary Dx); Skull defect Start: 07-07-2023 End: 07-07-2023 ambulatory ALBINO BURTON [facility] Start: 07-06-2023 End: 07-11-2023 Telephone encounter Cassidy Guerra [facility] Comment on above: reschedule appointme nt Start: 05-23-2023 Orders Only Valentin Velarde MD Work Phone: [facility] Start: 03-02-2023 Telephone encounter Татьяна Osborn [facility] Comment on above: Post-op Craniotomy Start: 08-02-2022 End: 08-02-[address] RAMA PRITCHETT . Facility:[facility] Start: 03-26-2022 Encounter for genera l adult medical examination without abnormal findings DR RAMA PRITCHETT . [facility] Start: 03-24-2022 End: 03-25-[address] RAMA PRITCHETT . Facility:[facility] Start: 03-24-2022 End: 03-25-2022 Encounter for general adult medical examination without abnormal findings DR RAMA PRITCHETT . Facility:[facility] Start: 02-22-2022 End: 02-23-[address] RAMA PRITCHETT . Facility:[facility] Start: 12-29-2020 Office outpatient vi sit 15 minutes Chhaya Spivey [facility] Start: 06-09-2020 End: 06-09-2020 Patient encounter procedure Rama Hoy -Pre-Surgical Testing Start: 06-06-2020 End: 06-06-2020 Patient encounter procedure Rama Hoy -Pre-Surgical Testing Start: 05-08-2020 End: 05-11-2020 Patient encounter procedure RAMA M HOY [facility] Start: 05-08-2020 End: 05-10-2020 Subsequent hospital visit by physician [email or web address] Mri Rm [facility] MRI Comment on above: Right knee pain, uns pecified chronicity Start: 03-20-2018 End: 03-21-2018 Patient encounter procedure Malik Guillen Facility:[facility] Procedures Date Procedure Procedure Detail Performing Clinician Start: 07-25-2024 Follow-up visit Follow-up ELIGIO MENDEZ Start: 10-10-2023 Adult depression screening assessment Pnsc Nurse Start: 09-26-2023 Ecg routine ecg w/le ast 12 lds trcg only w/o i&r Pradip Bee MD Work Phone: Start: 08-25-2023 Adult depression screening assessment Eligio Mendez MD Work Phone: Start: 07-07-2023 Follow-up visit Follow-up ALBINO BURTON Start: 05-08-2020 Mri any jt lower ext rem w/o contrast matrl Rama Pritchett Work Phone: Plan of Treatment Date Care Activity Detail Author Start: 07-25-2025 Tobacco Screening Tobacco Screening [facility] Start: 01-23-2025 End: 01-23-2025 Telemedicine consultation with patient 01/23/2025 1:00 PM EDT Telemedicine [facility] [address] [place] [phone] Eligio Mendez MD [address] [place] [address] [facility] Start: 12-22-2024 Tobacco Screening Tobacco Screening [facility] Start: 12-11-2024 End: 12-11-2024 Patient encounter procedure 12/11/2024 3:[address] [facility] [address] [place] [address] Rhoda Urrutia DO [address] [place] [address] [facility] Start: 12-11-2024 Adult BMI Screening Adult BMI Screening [facility] Start: 12-11-2024 End: 12-11-2024 CT Chest WO and CT angiogram Coronary arteries W contrast IV CT angiogram chest Imaging Routine 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CMS-HCC) Expected: 12/11/2024 (Approximate), Expires: 12/11/2024 [facility] Comment on above: Expected: 12/11/2024 (Approximate), Expi res: 12/11/2024 Start: 12-11-2024 End: 12-11-2024 CTA Abdominal vessels and Pelvis vessels W contrast IV CT angiogram abdomen and pelvis Imaging Routine 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CMS-HCC) Expected: 12/11/2024 (Approximate), Expires: 12/11/2024 [facility] Comment on above: Expected: 12/11/2024 (Approximate), Expi res: 12/11/2024 Start: 12-11-2024 Tobacco Screening Tobacco Screening [facility] Start: 12-11-2024 End: 12-11-2024 US Carotid arteries - bilateral Vas carotid duplex bilateral Vascular Ultrasound Routine Bilateral carotid artery stenosis Expected: 12/11/2024 (Approximate), Expires: 12/11/2024 [facility] Work Phone: Comment on above: Expected: 12/11/2024 (Approximate), Expi res: 12/11/2024 Start: 11-26-2024 Influenza vaccination Influenza Vaccine [facility] Start: 11-21-2024 Adult BMI Screening Adult BMI Screening [facility] Start: 11-21-2024 Tobacco Screening Tobacco Screening [facility] Start: 11-13-2024 Tobacco Screening Tobacco Screening [facility] Start: 11-01-2024 Tobacco Screening [...] EDT Office Visit [facility] [address] [place] [phone] Eligio Mendez MD [address] [place] [address] [facility] Start: 07-06-2024 Adult BMI Screening [facility] Start: 06-25-2024 Bacteria identified in Urine by Culture Urine Culture [facility] Start: 06-25-2024 Urine culture [facility] Start: 05-09-2024 End: 05-09-2024 Patient encounter procedure [facility] Start: 03-10-2024 Tobacco Screening [facility] Start: 03-07-2024 Adult BMI Screening Adult BMI Screening [facility] Start: 01-19-2024 End: 01-19-2024 Patient encounter procedure 01/19/2024 11:30 AM EDT Office Visit [facility] [address] [place] [address] [facility] Start: 12-12-2023 End: 12-12-2023 Patient encounter procedure 12/12/2023 10:00 AM EDT [facility] [place] [address] [place] [address] Rhoda Urrutia, DO [address] [place] [address] [facility] [place] Start: 12-02-2023 End: 12-02-2023 Patient encounter procedure 12/02/2023 3:30 PM EDT Appointment [facility] - CT Imaging [address] [place] [phone] Rhoda Urrutia, DO [address] [place] [address] [facility] - [facility] Imaging Start: 11-27-2023 Influenza vaccination Influenza Vaccine [facility] Start: 11-24-2023 End: 11-24-2023 Patient encounter procedure [facility] CT Imaging Start: 11-22-2023 End: 11-22-2023 Patient encounter procedure 11/22/2023 2:50 PM EDT Office Visit [facility] [place] [address] Albino Burton MD [address] [facility] [address] [place] [address] [facility] Start: 11-14-2023 End: 11-13-2024 CT Chest WO and CT angiogram Coronary arteries W contrast IV CT angiogram chest Imaging Routine 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CMS-HCC) Expected: 11/14/2023, Expires: 11/13/2024 [facility] Work Phone: Comment on above: Expected: 11/14/2023, Expires: Start: 11-14-2023 End: 11-13-2024 CTA Abdominal vessels and Pelvis vessels W contrast IV CT angiogram abdomen and pelvis Imaging Routine 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CMS-HCC) Expected: 11/14/2023, Expires: 11/13/2024 [facility] on above: Expected: 11/14/2023, Expires: Start: 11-14-2023 End: 11-13-2024 US Carotid arteries - bilateral Vas carotid duplex bilateral Vascular Ultrasound Routine Bilateral carotid artery stenosis Expected: 11/14/2023, Expires: 11/13/2024 [facility] on above: Expected: 11/14/2023, Expires: Start: 11-14-2023 End: 05-16-2025 US.doppler Extremity arteries - bilateral for physiologic artery study Vas art doppler lwr bilat mult lev/PVR Vascular Ultrasound Routine Claudication ([facility]-HCC) Expected: 11/14/2023, Expires: 05/16/2025 [facility] Comment on above: Expected: 11/14/2023, Expires: Start: 11-02-2023 End: 11-02-2023 Patient encounter procedure 11/02/2023 3:00 PM EDT Office Visit [facility] [address] [place] [address] Eligio Mendez MD [address] [facility] [address] [place] [address] [facility] Start: 10-25-2023 End: 10-25-2023 Admission to same day surgery center 10/25/2023 11:30 AM EDT Support Visit [facility] [address] [place] [phone] [facility] Start: 10-20-2023 End: 10-20-2023 Patient encounter procedure 10/20/2023 9:30 AM EDT Appointment [facility] - Neurophysiology [address] [facility] [address] [place] [address] [facility] - Neurophysiology Start: 10-10-2023 End: 10-10-2023 Admission to same day surgery center [facility] - Surgery Comment on above: CRANIOPLASTY / RIGHT AUTOLOGOUS CRANIOPL ASTY Start: 10-10-2023 End: 10-10-2023 CRANIOPLASTY [facility] Start: 10-10-2023 Subsequent hospital visit by physician [facility] - Surgery Start: 09-26-2023 End: 09-26-2023 Patient encounter procedure 09/26/2023 2:45 PM EDT Procedure visit [facility] On [address] [address] [facility] Start: 08-25-2023 End: 08-25-2023 Patient encounter procedure 08/25/2023 11:00 AM EDT Office Visit [facility] [address] [place] [phone] [facility] Start: 08-18-2023 End: 08-18-2023 Patient encounter procedure 08/18/2023 3:00 PM EDT Office Visit [facility] [address] [place] [phone] Albino Burton MD [address] [place] [address] [address] [place] [phone] [facility] Start: 07-27-2023 End: 07-27-2023 Admission to same day surgery center 07/27/2023 9:30 AM EDT - 07/27/2023 12:00 PM EDT Surgery [address] [phone] Albino Burton MD [address] [place] [address] [address] [place] [phone] CRANIOPLASTY / RIGHT AUTOLOGOUS CRANIOPLASTY [facility] Comment on above: CRANIOPLASTY / RIGHT AUTOLOGOUS CRANIOPL ASTY Start: 07-27-2023 End: 07-27-2023 CRANIOPLASTY CRANIOPLASTY Cerebrovascular accident (CVA), unspecified mechanism ([facility]-HCC) Skull defect 07/27/2023 9:30 AM EDT [facility] Start: 07-27-2023 Subsequent hospital visit by physician 07/27/2023 9:30 AM EDT Hospital Encounter [facility] Surgery [address] [place] [phone] Albino Burton MD [address] [place] [address] [address] [place] [phone] [facility] Surgery Start: 07-21-2023 End: 07-21-2023 Patient encounter procedure 07/21/2023 9:30 AM EDT Appointment [facility] - Neurophysiology [address] [place] [address] [address] [place] [address] [facility] - Neurophysiology Start: 07-07-2023 End: 07-07-2023 Patient encounter procedure [facility] Start: 06-10-2023 End: 06-10-2023 Patient encounter procedure 06/10/2023 10:00 AM EDT Appointment [facility] - CT Imaging [address] [place] [phone] [facility] - [facility] Imaging Start: 04-21-2023 End: 04-21-2023 Patient encounter procedure 04/21/2023 9:30 AM EST Appointment [facility] - Neurophysiology [address] [place] [address] [facility] Neuro[facility] Start: 11-26-2022 Influenza vaccination Influenza Vaccine [facility] Start: 11-27-2019 Influenza vaccination Flu vaccine (#1) [employer] Phone: Start: 06-27-2013 Screening for malignant neoplasm of breast Breast cancer screen [employer] Phone: Start: 06-27-2013 Screening for malignant neoplasm of colon Colon cancer screen colonoscopy [employer] Phone: Start: 06-27-2013 Shingles Vaccine (1 of 2) Shingles Vaccine (1 of 2) [employer] Phone: Start: 2003 Lipid panel Lipid screen [employer] Phone: Start: 06-27-1984 Screening for malignant neoplasm of cervix Cervical cancer screen [employer] Phone: Start: 06-27-1982 Administration of varicella zoster vaccine Zoster (Shingles) Vaccine (1 of 2) [facility] Start: 06-27-1982 DTaP,Tdap and Td Vaccines (1 - Tdap) DTaP,Tdap and Td Vaccines (1 - Tdap) [facility] [employer] Start: 06-27-1982 DTaP/Tdap/Td vaccine (1 - Tdap) DTaP/Tdap/Td vaccine (1 - Tdap) [employer] Phone: Start: 06-27-1981 Adult BMI Follow Up Plan Adult BMI Follow Up Plan [employer] Start: 06-27-1978 HIV screening HIV screen [employer] Phone: Start: 1975 Depression Screening Depression Screening [employer] [facility] Start: 1965 Hepatitis C screening Hepatitis C screen [employer] Phone: Start: 1965 Tobacco Counseling Tobacco [facility] [employer] [facility] End: 10-27-2023 Basic metabolic 2000 panel - Serum or Plasma Basic Metabolic Panel Lab Routine Aortic thrombus (CMS-HCC) 1 for 1 Occurrences starting 09/26/2023 until 10/27/2023 [employer] Comment on above: 1 for 1 Occurrences starting 09/26/2023 until 10/27/2023 End: 03-12-2024 Botox Injection For Cervical Dystonia Botox Injection For Cervical Dystonia Neurology Routine Every 3 Months for 4 Occurrences starting 05/23/2023 until 03/12/2024 [employer] Phone: Comment on above: Every 3 Months for 4 Occurrences startin g 05/23/2023 until 03/12/2024 End: 10-10-2023 CBC W Auto Differential panel - Blood CBC auto differential Lab Routine Aortic thrombus (CMS-HCC) 1 for 1 Occurrences starting 09/26/2023 until 10/10/2023 [employer] Phone: Comment on above: 1 for 1 Occurrences starting 09/26/2023 until 10/10/2023 End: 03-27-2025 CBC W Auto Differential panel - Blood CBC auto differential Lab Routine Essential thrombocytosis (CMS-HCC) JAK2 V617F mutation every 1-3 months for 12 Occurrences starting 11/02/2023 until 03/27/2025 [employer] Phone: Comment on above: every 1-3 months for 12 Occurrences star ting 11/02/2023 until 03/27/2025 End: 03-27-2025 Comprehensive metabolic 2000 panel - Serum or Plasma Comprehensive metabolic panel Lab Routine Essential thrombocytosis (CMS-HCC) JAK2 V617F mutation every 6 months for 12 Occurrences starting 11/02/2023 until 03/27/2025 [employer] Comment on above: every 6 months for 12 Occurrences starti ng 11/02/2023 until 03/27/2025 End: 12-11-2024 Creatinine includes GFR, serum Creatinine includes GFR, serum Lab Routine 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CMS-HCC) 1 Occurrences starting 12/12/2023 until 12/11/2024 [facility] Comment on above: 1 Occurrences starting 12/12/2023 until 12/11/2024 Payers Date Payer Category Payer Self-pay [id number] 2018 Worker's Comp Other Managed Care [employer] [id number] 2018 Worker's Comp, Other (unspecified) WORKER'S COMPENSATION [id number] 2018 Worker's Compensation WORKER'S C OMPENSATION WORKER'S [id number] ONLY [id number] 2018-Present [id number] [id number] 2018 Commercial Managed C are - PPO [employer] [id number] [id number] 2018 Unknown 1965 Unknown [id number] 2.16.840.1.917584.3.579. 2.176 1963 Unknown [id number] 2.16.840.1.298512.3.579. 2.593 1963 Unknown [id number] 2.16.840.1.927503.3.579. 2.593 1963 Unknown [id number] 2.16.840.1.509831.3.579. 2.593 1963 Unknown [id number] 2.16.840.1.584090.3.579. 2.727 1963 Unknown [id number] 2.16.840.1.736542.3.579. 2.1286 1963 Unknown [id number] 2.16.840.1.280416.3.579. 2.1286 1963 Unknown [id number] 2.16.840.1.530736.3.579. 2.1286 1963 Unknown [id number] 2.16.840.1.572259.3.579. 2.1286 1963 Unknown [id number] 2.16.840.1.213481.3.579. 2.1285 1963 Unknown [id number] 05.13.830.1.960036.3.579. 2.1285 1963 Unknown [id number] .0.1.096383.3.579. 2.1285 1963 Unknown [id number] 05.13.830.1.079506.3.579. 2.1285 1963 Unknown [id number] .1.410299.3.579. 2.1285 1963 Unknown [id number] .1.625340.3.579. 2.1285 1963 Unknown [id number] .1.418057.3.579. 2.1285 1963 Unknown [id number] .1.541039.3.579. 2.1285 1963 Unknown [id number] .1.884670.3.579. 2.1285 1963 Unknown [id number] .1.419594.3.579. 2.1285 1963 Unknown [id number] .1.484050.3.579. 2.1285 1963 Unknown [id number] .1.916199.3.579. 2.1285 1963 Unknown [id number] .1.608481.3.579. 2.1285 1963 Unknown [id number] .1.172375.3.579. 2.1285 1959 Unknown [id number] Unknown [id number] 05.13.830.1.305413.3.579. 2.531 Unknown [id number] 05.13.830.1.109419.3.579. 2.531 Social History Date Type Detail Facility Tobacco smoking stat [facility] Unknown if ever smoked [employer] Phone: Start: 1965 Sex Assigned At Not on file [employer] Work Phone: Exposure to SARS-CoV -2 (event) Not sure [employer] Phone: Start: 03-28-1979 End: 03-28-2022 Tobacco smoking status NHIS Smoker (finding) [facility] Start: 1965 Sex Assigned At Female F [facility] Start: 05-08-2020 End: 10-10-2023 Sex Assigned At [facility] [employer] Other Start: 10-31-2014 End: 02-04-2024 Sex Female (finding) [facility] Start: 09-26-2023 [facility] Start: 03-28-1979 End: 03-28-2022 History of tobacco use Cigarette Smoker [facility] Start: 05-08-2020 End: 09-26-2023 Cigarettes smoked current (pack per day) - Reported 1.5 [facility] Start: 09-26-2023 Tobacco use and exposure Former smokeless tobacco user [facility] Start: 12-23-2023 End: 07-25-2024 Alcoholic beverage intake Ex-drinker (finding) [facility] Has the [employer], or [employer] threatened to shut off services in your home in past 12Mo No [facility] How often to you hav e a drink containing alcohol? Monthly or less [facility] How many standard drinks containing alcohol do you have on a typical day? 1 or 2 [facility] How often do you hav e 6 or more drinks on 1 occasion? Never [facility] Adolescent depressio n screening assessment 0 [facility] Start: 09-26-2023 Tobacco Comment [facility] Start: 01-12-2019 Alcohol Comment once in a great whil e [facility] Start: 02-24-2023 [facility] Start: 02-24-2023 Tobacco use and exposure User of smokeless tobacco [facility] Start: 03-10-2023 End: 08-25-2023 Alcoholic beverage intake Current drinker of alcohol (finding) [facility] Medical Equipment Procedure Code Equipment Code Equipment Origin al Text Equipment Identifier Dates Gft Bn Ricardo Cnc 15cc Frzdr - [id number] - [id number] Start: 01-12-2019 Patch Dura 16x10 cm Drgrd Bvn Pricrd Strl Lf - [id number] Start: 12-26-2022 Plt Bn 41mm +20d Oblq L 3 - Sna - [id number] Start: 01-12-2019 Plate Bn 12mm 2 Hl Lp Bar Tab Unv Neuro Ii Crnmxf Ti Ns 1.5 - [id number] Start: 10-10-2023 Plate Bn 14mmx.5 mm Lp Bur Hl Cvr Tab Mod Unv Neuro Ii Crnfcl - [id number] Start: 10-10-2023 Scr Bn 16mm 2.4m m Va Lck St Rpl 02.210.116 - Sna - [id number] Start: 01-12-2019 Scr Bn 20mm 2.4m m Va L[facility] Rpl 02.210.120 - Sna - [id number] Start: 01-12-2019 Scr Bn 22mm 2.4m m Va L[facility] Rpl 02.210.122 - Sna - [id number] Start: 01-12-2019 Scr Bn Ricardo 2.4m m 16mm Strdrv - Sna - [id number] Start: 01-12-2019 Screw Bn 4mm 1.5 mm Slf Drl Xpn Crnmxf Strl Must Order In Multiples Of 5ea - [id number] Start: 10-10-2023 Goals Date Patient Goal Desired Activity /State Personal health goal Comment on above: Formatting of this n ote might be different from the original. Evaluation of progress towards goal: Spouse stated he is planning for patient to return home with home care. Clinical Notes 12-29-2020 to 07-25-2024 Eligio Mendez MD - 07/25/2024 2:30 PM EDTTelephone Encounter - Ta'Lyr Borum - 06/08/2024 2:55 PM EDTTelephone Encounter - Ivon Ingram - 06/08/2024 2:55 PM EDTPatient InstructionsPatient Instructions Note Date & Type Note Facility 07-25-2024 History of Present illness Narrative Images from the original note were not included. [facility] ADULT CLASSICAL HEMATOLOGY AARON Sandoval, [facility] OUTPATIENT FOLLOW-UP HEMATOLOGY NOTE Patient ID: Angelique Melo, 59 y.o. female PCP: RAMA PRITCHETT MD : 1965 CHIEF COMPLAINT: Chief Complaint Patient presents with Follow-up Essential thrombocytosis HISTORY OF PRESENT ILLNESS: Angelique Melo is a 59 y.o. 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 She was last seen in 12/2023. At that time, we continued hydrea, started aspirin, and stopped enoxaparin. We referred her to vascular and she saw them. Further imaging showed that her aortic thrombus has resolved. It sounds like she did have a UTI, but is otherwise doing well. No bleeding concerns. She is here today in a wheelchair with her . She does have ongoing limited speech ability. She can move her right side, but has limited mobility on her left side. Last labs were in 04/2024. Otherwise, no other major complaints today. PAST MEDICAL HISTORY: Past Medical History: Diagnosis [...] 10/10/2023 Performed by Albino Burton MD at [facility] ESOPHAGOGASTRODUODENOSCOPY INSERTION PEG TUBE N/A 01/06/2023 Performed by Cam Miller MD at [facility] FOOT SURGERY HYSTERECTOMY ORIF WRIST WITH BONE GRAFT Left 01/12/2019 Performed by Philip Olsen MD at [facility] PEG TUBE REMOVAL 07/20/2023 RIGHT SIDE CRANIOTOMY EVACUATION HEMATOMA/CRAINECTOMY/EVD INSERTION Right 12/26/2022 Performed by Albino Burton MD at [facility] TRACHEOSTOMY N/A 01/06/2023 Performed by Cam Miller MD at [facility] TRACHEOSTOMY CLOSURE 07/21/2023 PAST FAMILY HISTORY: Family History Problem Relation Age of Onset Hodgkin's lymphoma Father Anesthesia problems Neg Hx SOCIAL HISTORY: Lives in [place], [place]. Social History Socioeconomic History Marital status: Spouse name: Not on file Number of children: Not on file Years of education: Not on file Highest education level: Not on file Occupational History Not on file Tobacco Use Smoking status: Former Current packs/day: 0.00 Average packs/day: 1.5 packs/day for 43.0 years (64.5 ttl pk-yrs) Types: Cigarettes Start date: 1979 Quit date: 2022 Years since quittin.3 Smokeless tobacco: Former Tobacco comments: VAP Vaping Use Vaping status: Former Substance and Sexual Activity Alcohol use: Not Currently Comment: once in a great while Drug use: Not Currently Types: Marijuana Sexual activity: Defer Other Topics Concern Not on file Social History Narrative Not on file Social Drivers of Health Financial Resource Strain: Not on file Food Insecurity: No Food Insecurity (07/25/2024) Hunger Screening Food Insecurity - Worry: Never [...] paralyzed). 15 mL 3 aspirin 81 mg Take 1 tablet (81 mg total) by mouth in the morning. 90 tablet 3 baclofen (LIORESAL) 10 mg tablet Take 0.5 tablets (5 mg total) by mouth in the morning and 0.5 tablets (5 mg total) before bedtime. carvediloL (COREG) 25 mg tablet Take 1 tablet (25 mg total) by mouth in the morning and 1 tablet (25 mg total) before bedtime. 60 tablet 3 famotidine (PEPCID) 20 mg tablet 1 tablet (20 mg total) in the morning and 1 tablet (20 mg total) before bedtime. hydroxyurea (HYDREA) 500 mg chemo capsule Take 1 capsule by mouth daily potassium chloride (K-TAB,KLOR-CON) 20 mEq CR tablet Take 1 tablet (20 mEq total) by mouth every morning. sennosides-docusate sodium (SENNA WITH DOCUSATE SODIUM) 8.6-50 mg Take 1 tablet by mouth as needed for constipation. simvastatin (ZOCOR) 40 mg tablet Take by mouth nightly. traZODone (DESYREL) 50 mg tablet Take 1 tablet (50 mg total) by mouth nightly. venlafaxine (EFFEXOR) 75 mg tablet Take 2 tablets (150 mg total) by mouth nightly. bisacodyL (DULCOLAX) 10 mg suppository Insert 1 suppository (10 mg total) into the rectum as needed. (Patient not taking: Reported on 07/25/2024) ibuprofen (ADVIL,MOTRIN) 200 mg tablet Take 1 tablet (200 mg total) by mouth every 6 (six) hours as needed for pain (pt took equivalent to 800mg of the over the counter). No current facility-administered medications on file prior to visit. ALLERGIES: No Known Allergies PHYSICAL EXAMINATION: Vital signs: BP 109/68 (BP Site: Right Arm, BP Postition: Sitting, BP CUFF SIZE: L (13-17 inches)) Pulse 77 Temp 36.2 C (97.1 F) (Temporal) Resp 16 SpO2 95% General appearance: alert, no acute distress EXT: Trace edema. Brace on left leg. LABORATORY DATA: Lab Results Component Value Date WBC 3.3 (L) 05/08/2024 HGB 12.7 05/08/2024 HCT 38.3 05/08/2024 MCV 115 (H) 05/08/2024 PLT 121 (L) 05/08/2024 Lab Results Component Value Date GLU 100 (H) 05/08/2024 CALCIUM 9.2 05/08/2024 SODIUM 141 05/08/2024 K 3.8 05/08/2024 CO2 30 05/08/2024 BUN 20 05/08/2024 CREATININE 0.64 05/08/2024 Lab Results Component Value Date ALT 9 05/08/2024 AST 15 05/08/2024 ALKPHOS 90 05/08/2024 Lab Results Component Value Date INR 1.0 10/05/2023 INR 1.0 12/31/2022 INR 1.1 12/26/2022 PROTIME 12.1 10/05/2023 PROTIME 11.7 12/31/2022 PROTIME 13.0 12/26/2022 IMAGING: Reviewed in [employer] BILLING: Total time spent was 25 minutes: Preparing to see the patient (e.g., review of tests) Obtaining and/or reviewing separately obtained history Performing a medically appropriate examination and/or evaluation Counseling and educating the patient/family/caregiver Ordering medications, tests, or procedures Documenting clinical information in the electronic or other health record ASSESSMENT: Angelique Melo is a 59 y.o. female with history of hyperlipidemia, tobacco [...] inflammatory markers. Interesting, she grew up near [place], [place] ([facility]) and has multiple family members with blood disorders (sister with acute leukemia follows with , father with Hodgkins, and uncle with leukemia). We discussed this in detail during her hospitalization in 12/2022 and at last visit. Platelet count had normalized. Agree with plans for cytoreductive therapy given age and history of thrombosis. Last platelet count was down to 121 (with normal hemoglobin but mild leukopenia and mild neutropenia), so will decrease hydrea dosing. Will decrease hydrea to 500mg daily. We discussed that this will be a long-term medication. We will check CBC every 3 months and CMP every 6 months. We will adjust Hydrea dose as needed. She is on aspirin 81mg daily. 2. 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 Reviewed CT images with patient and her at last visit. Repeat CT in 11/2023 showed No acute vascular abnormality. Prior thrombus seen within the distal thoracic aorta is no longer visualized. Will defer to vascular team. 3. Past IPH in 12/2022 RECOMMENDATIONS: - Last CBC in 04/2024 showed low platelet count with mild leukopenia with mild neutropenia. Check CBC again today. - Continue hydrea, but decrease dose to 500mg daily. - Check CBC again in 1-2 months. - Otherwise, check CBC every 3 months. Check CMP every 6 months. Has standing order which was updated today. - Continue aspirin 81mg daily. - RTC in 6 months for video visit. Eligio Mendez MD Adult Director Of Nursing [employer] Pager: [phone] documented in this encounter [employer] 06-08-2024 Miscellaneous Notes PT's spouse called to confirm pt's appt on 07/25 at 2:30 pm, labs are not needed prior. PT's spouse confirmed understanding documented in this encounter [facility] 06-08-2024 Telephone encounter Note PT's spouse called to confirm pt's appt on 07/25 at 2:30 pm, labs are not needed prior. PT's spouse confirmed understanding [facility] 05-09-2024 Miscellaneous Notes Inez called into the office and left a voice mail that Angelique has an bladder infection and would like to reschedule her appointment from today that was missed. [employer] Install[employer] left a message on Inez's voice mail to call the office. No further action required by chief underwriter at this time. documented in this encounter [facility] 05-09-2024 Telephone encounter Note Inez called into the office and left a voice mail that Angelique has an bladder infection and would like to reschedule her appointment from today that was missed. [employer] Install[employer] left a message on Inez's voice mail to call the office. No further action required by chief underwriter at this time. [facility] 05-04-2024 Miscellaneous Notes Called pt and the number is linked to their spouse. PT's spouse confirmed appt and they would complete labs prior documented in this encounter [facility] 05-04-2024 Telephone encounter Note Called pt and the number is linked to their spouse. PT's spouse confirmed appt and they would complete labs prior [facility] 12-12-2023 History of Present illness Narrative Images from the original note were not included. 58 y.o. 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 REGULATED PROGRAM MANAGER - 11/14/23: states Dec 2022 admission for [...] 10/10/2023 Performed by Albino Burton MD at [facility] ESOPHAGOGASTRODUODENOSCOPY INSERTION PEG TUBE N/A 01/06/2023 Performed by Cam Miller MD at [facility] FOOT SURGERY HYSTERECTOMY ORIF WRIST WITH BONE GRAFT Left 01/12/2019 Performed by Philip Olsen MD at [facility] PEG TUBE REMOVAL 07/20/2023 RIGHT SIDE CRANIOTOMY EVACUATION HEMATOMA/CRAINECTOMY/EVD INSERTION Right 12/26/2022 Performed by Albino Burton MD at [facility] TRACHEOSTOMY N/A 01/06/2023 Performed by Cam Miller MD at [facility] TRACHEOSTOMY CLOSURE 07/21/2023 Physical Exam: Physical Exam [...] without rupture (CMS-HCC) Multinodular thyroid Kidney lesion, [place], left Adrenal nodule (CMS-HCC) Angelique was seen [...] without rupture (CMS-HCC) Multinodular thyroid Kidney lesion, [place], left Adrenal nodule (CMS-HCC) Plan of care: [...] without rupture (CMS-HCC) Multinodular thyroid Kidney lesion, [place], left Adrenal nodule (CMS-HCC) Angelique Melo is [...] Douglas M, MD documented in this encounter [facility] 11-24-2023 Miscellaneous Notes Per November 2023 recall, patient is due for a follow up with Vascular fellow. Please call to schedule. Spoke with inez and scheduled appt documented in this encounter [facility] 11-24-2023 Telephone encounter Note Per November 2023 recall, patient is due for a follow up with Vascular fellow. Please call to schedule. [facility] 11-24-2023 Telephone encounter Note Spoke with inez and scheduled appt [facility] 11-22-2023 History of Present illness Narrative Images from the original note were not included. [facility] [address] [place] [address], [address] [place] [address] * CHART NOTE ? 11/22/2023 Patient: Angelique Melo 1965 [id number] Nurse Practitioner: Gigi Suarez FORESTRY CONSULTANT Physician: Albino Burton MD, FAANS IMPRESSION / [...] record of the patient encounter. Inadvertent computerized bread dough mixer errors related to syntax, spelling, homophones, and/or inaudibility may be present. Scribe Statement: Scribed for and in the presence of Albino Burton MD by Zaki Miller. Provider Statement: I, Albino Burton MD personally performed the services described in the documentation, as scribed by Zaki Miller in my presence, and it is both accurate and complete ANDREA Perez 11/22/23 1555 documented in this encounter [facility] 11-22-2023 Instructions [employer] 11/22/2023 2:50 PM EDT Patient seen today by Dr. Burton Referral to Neurology Follow up in 1 year KM documented in this encounter [employer] 11-14-2023 History of Present illness Narrative Images [...] 10/10/2023 Performed by Albino Burton MD at [facility] ESOPHAGOGASTRODUODENOSCOPY INSERTION PEG TUBE N/A 01/06/2023 Performed by Cam Miller MD at [facility] FOOT SURGERY HYSTERECTOMY ORIF WRIST WITH BONE GRAFT Left 01/12/2019 Performed by Philip Olsen MD at [facility] PEG TUBE REMOVAL 07/20/2023 RIGHT SIDE CRANIOTOMY EVACUATION HEMATOMA/CRAINECTOMY/EVD INSERTION Right 12/26/2022 Performed by Albino Burton MD at [facility] TRACHEOSTOMY N/A 01/06/2023 Performed by Cam Miller MD at [facility] TRACHEOSTOMY CLOSURE 07/21/2023 Physical Exam: Physical Exam [...] Encounter Diagnosis Name Primary? 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[facility]) Angelique was seen today for cerebrovascular accident. Diagnoses and all orders for this visit: 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[facility]) - [facility] [place], [place] Plan of care: Please note that [...] orders for this visit: 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[facility]) - [facility] [place], [place] Angelique Melo is a 58 y.o. [...] SIGNATURE: Rhoda Urrutia DO CC: MD Mary ROMANO, Eligio Alfaro MD documented in this encounter [facility] 11-02-2023 History of Present illness Narrative Images from the original note were not included. [facility] ADULT CLASSICAL HEMATOLOGY AARON Sandoval CNP OUTPATIENT FOLLOW-UP NOTE Patient ID: Angelique Melo, 58 y.o. female Referred by: hospital follow-up PCP: RAMA PRITCHETT MD : 1965 CHIEF COMPLAINT: Chief [...] decreased to 1000mg daily. She was then moxt-ar-oxfbaf-up. Has been on VTE prophylaxis since hospitalization [...] Anxiety Chronic constipation CVA (cerebral vascular accident) ([facility]) Difficult speech, left side weakness Dental disease Upper full and lower partial GERD (gastroesophageal reflux disease) Head injury Hyperlipidemia Hypertension JAK2 V617F mutation Memory loss Short term Myeloproliferative disorder (CMS-HCC) Visual impairment Glasses PAST SURGICAL HISTORY: Past Surgical History: Procedure Laterality Date CARPAL TUNNEL RELEASE Bilateral CRANIOPLASTY / RIGHT AUTOLOGOUS CRANIOPLASTY Right 10/10/2023 Performed by Albino Burton MD at [facility] ESOPHAGOGASTRODUODENOSCOPY INSERTION PEG TUBE N/A 01/06/2023 Performed by Cam Miller MD at [facility] FOOT SURGERY HYSTERECTOMY ORIF WRIST WITH BONE GRAFT Left 01/12/2019 Performed by Philip Olsen MD at [facility] PEG TUBE REMOVAL 07/20/2023 RIGHT SIDE CRANIOTOMY EVACUATION HEMATOMA/CRAINECTOMY/EVD INSERTION Right 12/26/2022 Performed by Albino Burton MD at [facility] TRACHEOSTOMY N/A 01/06/2023 Performed by Cam Miller MD at [facility] TRACHEOSTOMY CLOSURE 07/21/2023 PAST FAMILY HISTORY: Family History Problem Relation Age of Onset Hodgkin's lymphoma Father Anesthesia problems Neg Hx SOCIAL HISTORY: Lives in [place], [place]. Social History Socioeconomic History Marital status: [...] 12/31/2022 PROTIME 13.0 12/26/2022 IMAGING: Reviewed in [employer] BILLING: Total time spent was 34 minutes: [...] who presents today for follow-up at the [facility] due to JAK2 positive myeloproliferative disorder. 1. 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 Some leukocytosis/neutrophilia and thrombocytosis could also be reactive given acute medical problems and elevated inflammatory markers. Interesting, she grew up near [place], [place] ([facility]) and has multiple family members with blood disorders (sister with acute leukemia follows with [facility], father with Hodgkins, and uncle with leukemia). [...] team since 12/2022. Referral to vascular in [place] for aortic thrombosis with history of detail [...] weeks worth). - Referral to vascular in [place] for aortic thrombosis. - RTC in 6 months. Eligio Mendez MD Adult Director Of Nursing [facility] Pager: [phone] documented in this encounter [facility] 10-26-2023 Miscellaneous Notes Returned pt husbands call requesting refill of Lovenox, message sent to Dr. Mendez for refill. Elizabeth VILLASENOR Benign Hematology documented in this encounter [facility] 10-26-2023 Telephone encounter Note Returned pt husbands call requesting refill of Lovenox, message sent to Dr. Mendez for refill. Elizabeth VILLASENOR Benign Hematology [facility] 10-25-2023 History of Present illness Narrative [facility] [address] [address] Suture/Staple Removal/Wound Date: October 25, 2023 Patient: Angelique Melo Physician: Dr. Burton Procedure: (1) right girdxtn-qemptfbr-llbcnqix autologous cranioplasty more than 12 cm (2) insertion of intraoperative ventricular drain Past Surgical History: Procedure Laterality Date CARPAL TUNNEL RELEASE Bilateral CRANIOPLASTY / RIGHT AUTOLOGOUS CRANIOPLASTY Right 10/10/2023 Performed by Albino Burton MD at [facility] ESOPHAGOGASTRODUODENOSCOPY INSERTION PEG TUBE N/A 01/06/2023 Performed by Cam Miller MD at [facility] FOOT SURGERY HYSTERECTOMY ORIF WRIST WITH BONE GRAFT Left 01/12/2019 Performed by Philip Olsen MD at [facility] PEG TUBE REMOVAL 07/20/2023 RIGHT SIDE CRANIOTOMY EVACUATION HEMATOMA/CRAINECTOMY/EVD INSERTION Right 12/26/2022 Performed by Albino Burton MD at [facility] TRACHEOSTOMY N/A 01/06/2023 Performed by Cam Miller MD at [facility] TRACHEOSTOMY CLOSURE 07/21/2023 Date of Procedure: 10/10/2023 Reason for Appointment: suture removal Post-Op Fever?: No Incisional Drainage?: No Skin Edges Approximated?: Yes Unusual Redness?: No Unusual Swelling?: No Sutures/[place] Removed?: Yes Steri Strips Applied?: No Use [...] with Dr. Burton. documented in this encounter [facility] 10-05-2023 Miscellaneous Notes I spoke to Inez to let him know an antibiotic was sent in for Angelique due to abnormal UA. Inez states he is going to take Angelique to draw the rest of her labs that were missed later today. documented in this encounter [facility] 10-05-2023 Telephone encounter Note I spoke to Inez to let him know an antibiotic was sent in for Angelique due to abnormal UA. Inez states he is going to take Angelique to draw the rest of her labs that were missed later today. [facility] 10-05-2023 Miscellaneous Notes UA positive and Dr Burton would like broad based antibiotic to be ordered prior to surgery- Angelique notified. documented in this encounter [facility] 10-05-2023 Telephone encounter Note UA positive and Dr Burton would like broad based antibiotic to be ordered prior to surgery- Angelique notified. [facility] 09-26-2023 History and physical note PRE-ADMISSION TESTING [...] Anxiety Chronic constipation CVA (cerebral vascular accident) ([facility]) Difficult speech, left side weakness Dental disease Upper full and lower partial GERD (gastroesophageal reflux disease) Head injury Hyperlipidemia Hypertension JAK2 V617F mutation Memory loss Short term Myeloproliferative disorder (CMS-HCC) Visual impairment Glasses PAST SURGICAL HISTORY: Past Surgical History: Procedure Laterality Date CARPAL TUNNEL RELEASE Bilateral ESOPHAGOGASTRODUODENOSCOPY INSERTION PEG TUBE N/A 01/06/2023 Performed by Cam Miller MD at [facility] FOOT SURGERY HYSTERECTOMY ORIF WRIST WITH BONE GRAFT Left 01/12/2019 Performed by Philip Olsen MD at [facility] PEG TUBE REMOVAL 07/20/2023 RIGHT SIDE CRANIOTOMY EVACUATION HEMATOMA/CRAINECTOMY/EVD INSERTION Right 12/26/2022 Performed by Albino Burton MD at [facility] TRACHEOSTOMY N/A 01/06/2023 Performed by Cam Miller MD at [facility] TRACHEOSTOMY CLOSURE 07/21/2023 FAMILY HISTORY: Family History [...] Burton on 10/10/2023. NATALIE Trujillo 09/26/23 1614 [facility] 09-26-2023 History and physical note PRE-ADMISSION TESTING [...] 01/06/2023 Performed by Cam Miller MD at [facility] FOOT SURGERY HYSTERECTOMY ORIF WRIST WITH BONE GRAFT Left 01/12/2019 Performed by Philip Olsen MD at [facility] PEG TUBE REMOVAL 07/20/2023 RIGHT SIDE CRANIOTOMY EVACUATION HEMATOMA/CRAINECTOMY/EVD INSERTION Right 12/26/2022 Performed by Albino Burton MD at [facility] TRACHEOSTOMY N/A 01/06/2023 Performed by Cam Miller MD at [facility] TRACHEOSTOMY CLOSURE 07/21/2023 FAMILY HISTORY: Family History [...] Trujillo 09/26/23 1614 documented in this encounter [facility] 09-26-2023 Instructions Kiersten Verdin RN - 09/26/2023 2:45 PM EDT Your surgery/procedure is scheduled at [facility] on October 09 at 10:15 am Arrival Time 8:15 am [facility] Address: [address] [place] [address], [place] [address] Park in [address] Parking lot located on [facility]. Report to the Entrance B. Check in at the information desk the surgery. The waiting room located on the second floor. If you have any questions prior to surgery, please call Pre-Admission Clinic at [phone] between 7:30 am and 4:30 pm Tuesday through Tuesday. If you have questions the morning of surgery, please call the Pre-op Department at [phone]. Notify your SURGEON if you develop any [...] would like to schedule therapy at a [facility] Rehab facility, please call [phone] ([phone]). Do not use lotions, creams, powders, perfume, make up, cologne or after-shaves day of surgery. Remove ALL jewelry including wedding rings, body piercings,hair extensions that contain metal, nail mongolian, make-up, and contact lens. You may brush [...] RIGHTS AND RESPONSIBILITIES As a patient at [facility], you have the right to: Receive medical care and be informed of who is taking care of you Be treated with dignity and respect Have a family member/signs sales representative of choice and your physician notified of your admission Receive information and actively participate in decisions about your care and treatment Refuse care, treatment and services Decide who may provide your support and speak for you Access caodaism and spiritual services Participate in ethical issues [...] of hospital charges and payment methods Patient/patient signs sales representative responsibilities are to: Provide information about [...] promptly as possible documented in this encounter [facility] 08-29-2023 Miscellaneous Notes Left voicemail for pt to call our office to schedule an appointment with Dr Mendez documented in this encounter [facility] 08-29-2023 Telephone encounter Note Left voicemail for pt to call our office to schedule an appointment with Dr Mendez [facility] 08-25-2023 History of Present illness Narrative Images from the original note were not included. [facility] [address] [facility] [id number] Patient: Angelique Melo Date of : 1965 Encounter Date: 08/25/2023 Patient Care Team: Rama Pritchett MD as PCP - General (Family [...] urgently to the operating room for right-sided xirzqpi-pxcvexex-diadgbrl decompressive craniotomy and hematoma evacuation. The patient [...] Date Hyperlipidemia JAK2 V617F mutation Myeloproliferative disorder (CMS-HCC) History reviewed. No pertinent family history. Past Surgical History: Procedure Laterality Date CARPAL TUNNEL RELEASE Bilateral ESOPHAGOGASTRODUODENOSCOPY INSERTION PEG TUBE N/A 01/06/2023 Performed by Cam Miller MD at [facility] HYSTERECTOMY ORIF WRIST WITH BONE GRAFT Left 01/12/2019 Performed by Philip Olsen MD at [facility] RIGHT SIDE CRANIOTOMY EVACUATION HEMATOMA/CRAINECTOMY/EVD INSERTION Right 12/26/2022 Performed by Albino Burton MD at [facility] TRACHEOSTOMY N/A 01/06/2023 Performed by Cam Miller MD at [facility] Current Outpatient Medications Medication Sig Dispense Refill [...] This note was completed using a voice bread dough mixer system. Every effort was made to ensure accuracy; however, inadvertent computerized bread dough mixer errors may be present Patient was seen and staffed with Dr. Wright - Stroke Attending. ASHVIN XAVIER MD Vascular Neurology Fellow. Attending Attestation: I saw the patient. I participated and was physically present during the critical/mckoy portions of the service. I was directly involved in the management and treatment plan of the patient. I reviewed the resident's note. documented in this encounter [facility] 08-25-2023 Instructions Ashvin Xavier MD - 08/25/2023 11:00 AM EDT - Will refer to vascular surgery and hematology for descending aortic thrombus and essential thrombocytosis. - Please request your facility to prescribe Lovenox instead of Heparin injections for DVT prophylaxis. - Follow up in our clinic in 4 months. [facility] 07-25-2023 Miscellaneous Notes Multiple calls to [facility] to ask the status of Angelique's pre-operative [...] with an update. documented in this encounter [facility] 07-25-2023 Telephone encounter Note Multiple calls to [facility] to ask the status of Angelique's pre-operative [...] someone and call back with an update. [facility] 07-14-2023 Miscellaneous Notes Sherita from [facility] and stated the patient is currently heparin injections and the patient's Inez wants to know if they can discontinue those injections before she is discharged in about 1 month. Sherita can be reached on her direct line at [phone] That will be determined by her facility physician. We havent seen her since last year. It is for DVT prophylaxis. Despite this, heparin injections are not typically continued on discharge Called and left VM for Sherita about the below information. Left office phone number if they have anymore questions. [facility] this [facility] Telephone encounter Note Sherita from [facility] and stated the patient is currently heparin injections and the patient's Inez wants to know if they can discontinue those injections before she is discharged in about 1 month. Sherita can be reached on her direct line at [phone] [facility] 07-14-2023 Telephone encounter Note That will be determined by her facility physician. We havent seen her since last year. It is for DVT prophylaxis. Despite this, heparin injections are not typically continued on discharge [facility] Work Phone: 07-14-2023 Telephone encounter Note Called and left VM for Sherita about the below information. Left office phone number if they have anymore questions. [facility] 07-07-2023 History of Present illness Narrative Images from the original note were not included. [facility] [address] [place] [address], [address] [place] [address] * CHART NOTE ? 07/07/2023 Patient: Angelique Melo 1965 [id number] Nurse Practitioner: Gigi Suarez CNP Physician: Albino [...] record of the patient encounter. Inadvertent computerized bread dough mixer errors related to syntax, spelling, homophones, and/or inaudibility may be present. Scribe Statement: Scribed for and in the presence of Albino Burton MD by Zaki Miller. Provider Statement: I, Albino Burton MD personally performed the services described in the documentation, as scribed by Zaki Miller in my presence, and it is both accurate and complete documented in this encounter [facility] 07-07-2023 Instructions Fran Olmedo - 07/07/2023 11:30 AM EDT Pt saw Dr Burton Surgery was offered Right autologous crani Check ESR, CRP blood culturesx2 Lilliam will contact spouse to schedule surgery RT documented in this encounter [facility] [employer] 07-06-2023 Miscellaneous Notes What is the reason for the call? To reschedule the patients appointment for 08/18/2023 If appointment requested, what is the reason for the appointment? Is there a referral in the chart? Were they seen in the hospital? What hospital were they seen at? What is a good call back number? [facility] at [phone] Okay to reschedule. Note patient did go to facility so they need to be aware also. If the concern is because they are in facility, we would still recommend seeing patient and they can set up transportation. Received a call from Jakob to reschedule patient's appointment due to transportation. The auto driver for facility already has a patient to bring up to our office the day patient was scheduled and Jakob stated this patient would need a different appointment on a different day. Jakob direct line is [phone] Please advise Tere contacted our office again stating that she needs to schedule a follow up with the stroke clinic for the patient to be seen after her CT scan. Please advise and contact Tere at [phone] Returned call. Rescheduled for 08/24 documented in this encounter [facility] 07-06-2023 Telephone encounter Note What is the reason for the call? To reschedule the patients appointment for 08/18/2023 If appointment requested, what is the reason for the appointment? Is there a referral in the chart? Were they seen in the hospital? What hospital were they seen at? What is a good call back number? Daysi at [phone] [facility] 07-06-2023 Telephone encounter Note Okay to reschedule. Note patient did go to facility so they need to be aware also. If the concern is because they are in facility, we would still recommend seeing patient and they can set up transportation. [facility] 07-06-2023 Telephone encounter Note Received a call from Jakob to reschedule patient's appointment due to transportation. The auto driver for [facility] already has a patient to bring up to our office the day patient was scheduled and Jakob stated this patient would need a different appointment on a different day. Jakob direct line is [phone] Please advise [facility] 07-06-2023 Telephone encounter Note Tere contacted our office again stating that she needs to schedule a follow up with the stroke clinic for the patient to be seen after her CT scan. Please advise and contact Tere at [phone] [facility] 07-06-2023 Telephone encounter Note Returned call. Rescheduled for 08/24 [facility] 03-02-2023 Miscellaneous Notes Received call today 03/02/23 8:46 from Abi at [facility] who stated that patient had craniotomy a couple months ago and she's noticed in the last few days that it is more swollen. She wanted to know if this was measured after she had the procedure and is requesting call back for medical advice. Please call back and advise, direct callback#: [phone]. Will need to call neurosurgery. Called Abi [...] CT scan that is scheduled on 06/10/2023. [employer] Install[employer] did inform her that neurosurgery was not [...] appt to the same day. Please advise. [employer] received a call from Daysi with [facility]. Daysi is asking if appointment that is scheduled for 05/05/2023 at 9:30 could please be scheduled on the same day with Neurosurgery appointment. Appointment with Neurosurgery is 06/14/2023 at 2:30pm. Daysi is requesting appointment to either before 2:30pm or after, as long as it is on the same day. Please Advise. Daysi is requesting a call back [phone] to further discuss. Thank you so much [...] call today 04/07/23 1:43 from Tere at [facility] who is requesting a call back in regard to previous message. She said that she got some dates/times from the other provider's office. Please call back and advise, callback#: [phone]. Spoke with Lashaun and correlated Dr Hutchinson appt on the same day as ours documented in this encounter [facility] 03-02-2023 Telephone encounter Note Received call today 03/02/23 8:46 from Abi at [facility] who stated that patient had craniotomy a couple months ago and she's noticed in the last few days that it is more swollen. She wanted to know if this was measured after she had the procedure and is requesting call back for medical advice. Please call back and advise, direct callback#: [phone]. [facility] [employer] 03-02-2023 Telephone encounter Note Will need to call neurosurgery. 03-02-2023 Telephone encounter Note Called Abi and informed her that if it is about surgery site, she should call neurosurgery and provided the number for it. She voiced understanding. [facility] [employer] 03-02-2023 Telephone encounter Note Daysi with Transportation is asking for the appointment (05/05/2023) with stroke to rescheduled on same day with the patients appointment (06/09/2023) with neurosurgery. Also, she is asking for the appointment to be schedule after the CT scan that is scheduled on 06/10/2023. [employer] did inform her that neurosurgery was not in our office, she asked to clinical staff to make arrangements with neurosurgery. Please advise [facility] [employer] 03-02-2023 Telephone encounter Note Daysi contacted our office back stating that both appts (neurology and neurosurgery) need to be moved to after the appt for her CT scan which is on 06/10/2023. She was transferred to Neurosurgery to reschedule that appt and once that appt is rescheduled we could possibly reschedule our appt to the same day. Please advise. [facility] 03-02-2023 Telephone encounter Note [employer] received a call from Daysi with [facility]. Daysi is asking if appointment that is scheduled for 05/05/2023 at 9:30 could please be scheduled on the same day with Neurosurgery appointment. Appointment with Neurosurgery is 06/14/2023 at 2:30pm. Daysi is requesting appointment to either before 2:30pm or after, as long as it is on the same day. Please Advise. Daysi is requesting a call back [phone] to further discuss. Thank you so much [facility] 03-02-2023 Telephone encounter Note Called facility back and it rang until it changed to busy tone Called transportation back and no answer This patient follows care under the fellows and they are only here on afternoons. [facility] 03-02-2023 Telephone encounter Note Called facility Lashaun answered they're trying to make the appts on the same day so that its easier on the patient. She is going to talk to Dr Hutchinson office and see if they have something they may correlate on a [facility] 03-02-2023 Telephone encounter Note Received call today 04/07/23 1:43 from Tere at [facility] who is requesting a call back in regard to previous message. She said that she got some dates/times from the other provider's office. Please call back and advise, callback#: [phone]. [facility] 03-02-2023 Telephone encounter Note Spoke with Lashaun and correlated Dr Hutchinson appt on the same day as ours [employer] 12-29-2020 Evaluation note Encounter Date Diagnosis Assessment [...] in writting by [facility] document. 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) Aortic thrombus (CMS-HCC) [facility] Diagnosis Cerebrovascular accident (CVA) (CMS-HCC) Skull defect Aortic thrombus (CMS-HCC)- Primary Cerebrovascular accident (CVA), unspecified mechanism (CMS-HCC) Skull defect documented in this encounter [facility]* Diagnosis Cerebrovascular accident (CVA) (CMS-HCC) Skull defect Cerebrovascular accident (CVA), unspecified mechanism (CMS-HCC)- Primary Skull defect Pre-op testing Unspecified pre-operative examination Cerebrovascular accident (CVA), unspecified mechanism (CMS-HCC) Skull defect [facility] Diagnosis Cerebrovascular accident (CVA) (CMS-HCC) Skull defect Abnormal finding on urinalysis- Primary Cerebrovascular accident (CVA), unspecified mechanism (CMS-HCC) Skull defect documented in this encounter [facility]* Diagnosis Skull defect- Primary documented in this encounter [facility]* Diagnosis 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 documented in this encounter [facility]* Diagnosis Cerebrovascular accident (CVA), unspecified mechanism (CMS-HCC)- Primary Skull defect documented in this encounter [facility]* Diagnosis Bilateral carotid artery stenosis- Primary Occlusion and stenosis of carotid artery without mention of cerebral infarction 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 Claudication (CMS-HCC) Unspecified peripheral vascular disease documented in this encounter [facility]* Diagnosis Status post craniotomy- Primary Other postprocedural status documented in this encounter [facility]* Diagnosis Bilateral carotid artery stenosis- Primary Occlusion and stenosis of carotid artery without mention of cerebral infarction 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 Aneurysm of ascending aorta without rupture (CMS-HCC) Multinodular thyroid Nontoxic multinodular goiter Kidney lesion, [place], left Adrenal nodule (CMS-HCC) Benign neoplasm of adrenal gland documented in this encounter [facility]* Diagnosis 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 documented in this encounter [facility]* Diagnosis Essential thrombocytosis ([facility]-HCC) 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 documented [facility] general Narrative - Reported* Type Description Date Surgical History carpal tunnel release- bilatera l Surgical History hysterectomy Surgical History ORIF left wrist Cursogram Other InstructionsNot on filedocumented in this encounter [facility]ed in [facility] filedocumented in this encounter [facility] filedocumented in this encounter [facility] filedocumented in this encounter [...] t Referred To Contact Vascular Surgery Diagnoses JAK2 positive polycythemia vera (CMS-HCC) Aortic thrombus (CMS-HCC) Ashvin Xavier MD [address] [place] [id number] [facility] Vascular Surg [address] [place] [address] Referral ID Status Reason Start Date Expiration Date Visits Requested Visits Authorized [id number] Pending Review Specialty Services Required 08/25/2023 08/24/2024 1 1 * Consultation (Routine) - Pending Review Specialty Diagnoses / Procedures Referred By Contac t Referred To Contact Hematology Diagnoses JAK2 positive polycythemia vera (CMS-HCC) Aortic thrombus (CMS-HCC) Ashvin Xavier MD [address] [place] [address] [facility] Benign Hematology [address] [place] [address] Referral ID Status Reason Start Date Expiration Date V isits Requested Visits Authorized [id number] Pending Review 08/25/2023 08/24/2024 1 1 [facility] SystemReason for referral (narrative)* Consultation (Routine) - Pending Review Specialty Diagnoses / Procedures Referred By Contac t Referred To Contact Vascular Surgery Diagnoses 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CMS-HCC) Eligio Mendez MD [address] [place] [address] Rhoda Urrutia DO [address] [place] [address] Referral ID Status Reason Start Date Expiration Date Visits Requested Visits Authorized [id number] Pending Review Specialty Services Required 11/02/2023 11/01/2024 1 1 [facility] Consultation (Routine) - Pending Review Specialty Diagnoses / Procedures Referred By Contac t Referred To Contact Neurology Diagnoses Status post craniotomy Gigi Suarez APRN-FORESTRY CONSULTANT [address] [place] [address] [facility] Neurology [address] [place] [address] Referral ID Status Reason Start Date Expiration Date Visits Requested Visits Authorized [id number] Pending Review Specialty Services Required 11/22/2023 11/21/2024 1 1 Electronically signed by Gigi Suarez WATER POLLUTION CONTROL TECHNICIAN-FORESTRY CONSULTANT at 11/22/2023 2:37 PM EDT [employer] Summary Purpose Family History Relationship Condition Age [...] Documents on File Type Date Recorded 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 DNR Physician Order 01/18/2023 4:20 PM Latest Code Status on File Code Status Date Activated Date Inactivated Comments DNR Comfort Care Arrest (DNR-CCA) [place] 12/31/2022 11:45 AM 01/11/2023 7:55 PM Code Status History Code Status Date Activated Date Inactivated Comments Full Code 12/26/2022 4:32 AM 12/31/2022 11:45 AM Documents on File Type Date Recorded 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 DNR Physician Order 01/18/2023 4:20 PM Date Activated Date Inactivated Comments 10/10/2023 1:41 PM 10/12/2023 6:38 PM Date Activated Date Inactivated Comments 12/31/2022 11:45 AM 01/11/2023 7:55 PM Date Activated Date Inactivated Comments 12/26/2022 4:32 AM 12/31/2022 11:45 AM Latest Code Status on File Code Status Date Activated Date Inactivated Comments DNR Comfort Care Arrest (DNR-CCA) [place] 12/31/2022 11:45 AM 01/11/2023 7:55 PM Code Status History Code Status Date Activated Date Inactivated Comments Full Code 12/26/2022 4:32 AM 12/31/2022 11:45 AM Advance Directive Response Recorded Date/ Time Advance Directives No June 05 11:39am Advance Directive Response Recorded Date/ Time Advance Directives No June 05 12:39pm Date Activated Date Inactivated Comments 12/31/2022 [...] Procedures MRI KNEE RIGHT WO CONTRAST Rama Pritchett MD [address] [place] [address] Specialty Diagnoses / Procedures Referred By Contac t Referred To Contact Procedures Botox Injection For Cervical Dystonia Valentin Velarde MD [address] [facility], [address] [place] [address] Referral ID Status Reason Start Date Expiration Date V isits Requested Visits Authorized [id number] Pending Review 05/23/2023 05/22/2024 4 4 Specialty Diagnoses / Procedures Referred By Contac t Referred To Contact Diagnoses Pre-op testing Procedures ECG 12 lead Pradip Bee MD [address] [place] [address] Referral ID Status Reason Start Date Expiration Date V isits Requested Visits Authorized [id number] Pending Review 09/26/2023 09/25/2024 1 1 Specialty Diagnoses / Procedures Referred By Contac t Referred To Contact Diagnoses Bilateral carotid artery stenosis Procedures Vas carotid duplex bilateral Rhoda Urrutia DO [address] [place] [address] [facility] [address] [place] [address] Phone: [phone] Referral ID Status Reason Start Date Expiration Date V isits Requested Visits Authorized [id number] Pending Review 11/14/2023 11/13/2024 1 1 Specialty Diagnoses / Procedures Referred By Contac t Referred To Contact Diagnoses Claudication ([facility]-HCC) Procedures Vas art doppler lwr bilat mult lev/PVR Rhoda Urrutia DO [address] [place] [address] [facility] [address] [place] [address] Phone: [phone] Referral ID Status Reason Start Date Expiration Date V isits Requested Visits Authorized [id number] Pending Review 11/14/2023 11/13/2024 1 1 Specialty Diagnoses / Procedures Referred By Contac t Referred To Contact Radiology Diagnoses 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CMS-HCC) Procedures CT angiogram abdomen and pelvis Rhoda Urrutia DO [address] [place] [address] [place] [address] [place] [address] Phone: [phone] Referral ID Status Reason Start Date Expiration Date Visits Requested Visits Authorized [id number] CLINICAL DOCUMENTATION REQUESTED 1ST REQ 11/14/2023 11/13/2024 1 1 Specialty Diagnoses / Procedures Referred By Contac t Referred To Contact Radiology Diagnoses 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CMS-HCC) Procedures CT angiogram chest Urrutia Rhoda Clarissa DO [address] [facility] [address] [place] [address] [place] [address] [place] [address] Phone: [phone] Referral ID Status Reason Start Date Expiration Date Visits Requested Visits Authorized [id number] CLINICAL DOCUMENTATION REQUESTED 1ST REQ 11/14/2023 11/13/2024 1 1 Specialty Diagnoses / Procedures Referred By Contac t Referred To Contact Radiology Diagnoses 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CMS-HCC) Procedures CT angiogram abdomen and pelvis Rhoda Urrutia DO [address] [facility] [address] [place] [address] Referral ID Status Reason Start Date Expiration Date V isits Requested Visits Authorized [id number] Pending Review 12/12/2023 12/11/2024 1 1 Specialty Diagnoses / Procedures Referred By Contac t Referred To Contact Radiology Diagnoses 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CMS-HCC) Procedures CT angiogram chest Rhoda Urrutia DO [address] [facility] [address] [place] [address] Phone: Referral ID Status Reason Start Date Expiration Date V isits Requested Visits Authorized [id number] Pending Review 12/12/2023 12/11/2024 1 1 Specialty Diagnoses / Procedures Referred By Contac t Referred To Contact Diagnoses Bilateral carotid artery stenosis Procedures Vas carotid duplex bilateral Rhoda Urrutia DO [address] [facility] [address] [place] [address] Phone: Referral ID Status Reason Start Date Expiration Date V isits Requested Visits Authorized [id number] Pending Review 12/12/2023 12/11/2024 1 1 Assessments Diagnosis Right knee pain, unspecified chronicity Chief Complaint and Reason for Visit Chief Complaint Knee Pain Chief Complaint Knee Pain Knee Pain Chief Complaint Admit Date Unknown February 03, 2024 9 :00am Chief Complaint Admit Date Unknown June 25, 2024 12: 00pm Additional Source Comments INFORMATION SOURCE (unrecogn ized section and content) DATE CREATED AUTHOR 03/30/2018 [facility] DATE CREATED AUTHOR AUTHOR'S ORGANIZ ATION 05/12/[address] [facility] DATE CREATED AUTHOR AUTHOR'S ORGANIZ ATION 08/03/2022 [facility] DATE CREATED AUTHOR AUTHOR'S ORGANIZ ATION 12/13/2023 [facility] DATE CREATED AUTHOR AUTHOR'S ORGANIZ ATION 07/01/2024 [facility] DATE CREATED AUTHOR AUTHOR'S ORGANIZ ATION 07/30/2024 [facility] DATE CREATED AUTHOR AUTHOR'S ORGANIZ ATION 10/06/2024 [facility] Reason for Visit (unrecogniz ed section and content) Status Reason Specialty Diagnoses / Procedures Referre d By Contact Referred To Contact Closed Radiology Diagnoses Right knee pain, unspecified chronicity Procedures MRI KNEE RIGHT WO CONTRAST Rama Pritchett MD [address] [place] [address] Reason Onset Date Comments Heparin 07/14/2023 Reason [...] Contact Vascular Surgery Diagnoses 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[facility]-HCC) Eligio Mendez MD [address] [address] Rhoda Urrutia, DO [address] [place] [address] Referral ID Status Reason Start Date Expiration Date Visits Requested Visits Authorized [id number] Pending Review Specialty Services Required 11/02/2023 11/01/2024 1 1 Reason Comments Post-op POST OP CRANIOPLASTY Reason Comments Follow-up Carotid Artery Disease Testing done on l egs and carotids. CT of the chest done also. Reason Comments Follow-up Essential thrombocyt osis Reason Comments Med Refill Care Teams (unrecognized sec tion and content) Team Status: Inactive Member Role Status Dates Ena Tran REGULATED PROGRAM MANAGER-C Attending Provider Active Start: February 03, 2024 End: February 03, 2024 Mortgage Manager Relationship Specialty Start Date End Date Rama Pritchett MD PCP - General Family Medicine 01/22/19 Mortgage Manager Relationship Specialty Start Date End Date Rama Pritchett MD [address] [place] [address] PCP - General Family Medicine 01/22/19 Mortgage Manager Relationship Specialty Start Date End Date Rama Pritchett MD [address] [place] [address] PCP - General Family Medicine 01/22/19 Mortgage Manager Relationship Specialty Start Date End Date Rama Pritchett MD PCP - General Family Medicine 01/22/19 Mortgage Manager Relationship Specialty Start Date End Date Rama Pritchett MD [address] [place], [place] [id number] PCP - General Family Medicine 01/22/19 Mortgage Manager Relationship Specialty Start Date End Date Rama Pritchett MD [address] [place], [place] [id number] PCP - General Family Medicine 01/22/19 Mortgage Manager Relationship Specialty Start Date End Date Rama Pritchett MD [address] [place], [place] [id number] PCP - General Family Medicine 01/22/19 Mortgage Manager Relationship Specialty Start Date End Date Rama Pritchett MD [address] [place], [place] [id number] PCP - General Family Medicine 01/22/19 Mortgage Manager Relationship Specialty Start Date End Date Rama Pritchett MD [address] [place], [place] [id number] PCP - General Family Medicine 01/22/19 Mortgage Manager Relationship Specialty Start Date End Date Rama Pritchett MD [address] [place], [place] [id number] PCP - General Family Medicine 01/22/19 Mortgage Manager Relationship Specialty Start Date End Date Rama Pritchett MD [address] [place], [place] [id number] PCP - General Family Medicine 01/22/19 Mortgage Manager Relationship Specialty Start Date End Date Rama Pritchett MD [address] [place], [place] [id number] PCP - General Family Medicine 01/22/19 Mortgage Manager Relationship Specialty Start Date End Date Rama Pritchett MD [address] [place] [address] PCP - General Family Medicine 01/22/19 Mortgage Manager Relationship Specialty Start Date End Date Rama Pritchett MD PCP - General Family Medicine 01/22/19 Mortgage Manager Relationship Specialty Start Date End Date Rama Pritchett MD PCP - General Family Medicine 01/22/19 Mortgage Manager Relationship Specialty Start Date End Date Rama Pritchett MD PCP - General Family Medicine 01/22/19 Mortgage Manager Relationship Specialty Start Date End Date Rama Pritchett MD PCP - General Family Medicine 01/22/19 Team Status: Inactive Member Role Status Dates Rama Pritchett MD Attending Provider Active Sta rt: June 25, 2024 End: June 25, 2024 Mortgage Manager Relationship Specialty Start Date End Date Rama Pritchett MD PCP - [facility] 01/22/19 Goals (unrecognized section and content) Goals [...] BE BASED ON THE PRIMARY CLINICAL RECORDS. [employer] [facility]. provides no warranty or guarantee of the accuracy or completeness of information in this document.
[2024-11-23 10:41] LABS: Hematocrit 44.9 % (36.0-48.0); Hemoglobin 14.4 g/dL (12.0-16.0); Immature Granulocytes Abs Auto 0.03 10^3/uL (0.00-0.03); Immature Granulocytes Pct Auto 0.4 % (0.0-0.5); Lymphocytes Absolute Auto 2.1 10^3/uL (1.2-3.8); Mean Corpuscular HGB Conc 32.1 g/dL (29.9-35.2); Mean Corpuscular Hemoglobin 32.4 pg (26.7-34.0); Mean Corpuscular Volume 101.1 fL (81.0-99.0); Platelet Count 358 10^3/uL (150-450); Red Blood Count 4.44 10^6/uL (4.20-5.40); White Blood Count 6.8 10^3/uL (4.0-11.0)
[2024-11-23 12:35] LABS: Alanine Aminotransferase 16 U/L (14-59); Albumin Globulin Ratio 0.8; Albumin Level 3.4 g/dL (3.4-5.0); Alkaline Phosphatase 116 U/L (46-116); Anion Gap 10.8; Aspartate Amino Transferase 21 U/L (15-37); Blood Urea Nitrogen 22.0 mg/dL (7.0-18.0); Calcium 9.4 mg/dL (8.5-10.1); Carbon Dioxide 26.4 mmol/L (21.0-32.0); Chloride 106 mmol/L (98-107); Cholesterol 157 mg/dL (<=200); Estimated GFR (African America >60 (>=60 mL/min/1.73m^2); Estimated GFR (Non-African Ame >60 (>=60 mL/min/1.73m^2); Free T3 2.86 pg/mL (2.18-3.98); Globulin 4.2 g/dL; Glucose 87 mg/dL (74-106); HDL Cholesterol 56 mg/dL (40-60); Potassium 4.2 mmol/L (3.5-5.1); Sodium 139 mmol/L (136-145); Thyroid Stimulating Hormone 1.134 uIU/mL (0.358-3.740); Total Protein 7.6 g/dL (6.4-8.2); Triglycerides 91 mg/dL (<=150); VLDL CHOLESTEROL 18.2 mg/dL
== END 2024-11-23 09:51 | disposition home or self-care (01) ==
LOC: LAB 09:52
PROVIDERS: PCP Family Medicine; Visit Provider Family Medicine
DX: Z00.00 Encounter for general adult medical examination without abnormal findings (principal)
CPT/HCPCS: 36415; 80053; 80061; 83036; 84436; 84443; 84481; 85025